=== PATIENT | male | born 1960 | race African-American/Black ===

== ENCOUNTER 2016-06-24 11:13 | Inpatient (IN) | payer BC, OTHER ==
[2016-06-24] MEDS ORDERED: VANCOMYCIN 1,000 MG in DEXTROSE 5%-WATER - 250 ML IVPB ONE (12:58)
[2016-06-24] MEDS ORDERED: PIPERACILLIN/TAZOB 3.375 GM/50 ML PRE-DOCKED IV ONE (13:04)
--- NOTE | 2016-06-24 13:09 | PDOC ---
History of Present Illness - History of Present Illness Initial Comments: 06/24/16 13:09 Patient is a 56 year old male with significant medical hx of HTN, chronic venous stasis ulcers (since childhood), gout, and CKD who has been sent down to the ED from wound care for suspected infection. The patient reports he has poor circulation in his legs and has had these ulcerations since childhood. Patient has his wounds treated here at wound care every Monday. He was sent to the ED for suspected infection due to foul odor and bleeding of the wound. Denies any fever or chills. Denies hx of diabetes. Wound Care Physician: Pepito Eric MD <Adelaida Valdes - Last Filed: 06/24/16 14:48> <Haroldo Fofana - Last Filed: 06/24/16 14:54> - General Chief Complaint: Wound Infection Stated Complaint: WOUND CARE ADMISSION Time Seen by Provider: 06/24/16 12:07 Past History <Adelaida Valdes - Last Filed: 06/24/16 14:48> - Past Medical History Anemia: No Asthma: No Cancer: No Cardiac Disorders: No CVA: No COPD: No CHF: Yes Dementia: No Diabetes: No GI Disorders: No Disorders: No HTN: Yes Hypercholesterolemia: No Liver Disease: No Suicide Attempt (Hx): No Seizures: No Thyroid Disease: No Other medical history: pvd ble - Surgical History Abdominal Surgery: No Appendectomy: Yes Cardiac Surgery: No Cholecystectomy: No Lung Surgery: No Neurologic Surgery: No Orthopedic Surgery: No - Psycho/Social/Smoking Cessation Hx Anxiety: No Suicidal Ideation: No Smoking Status: No Smoking History: Never smoked Have you smoked in the past 12 months: No Number of Cigarettes Smoked Daily: 0 Information on smoking cessation initiated: No Hx Alcohol Use: No Drug/Substance Use Hx: No Substance Use Type: None Hx Substance Use Treatment: No <Haroldo Fofana - Last Filed: 06/24/16 14:54> - Past Medical History Allergies/Adverse Reactions: Allergies Allergy/AdvReac Type Severity Reaction Status Date / Time [place] And Derivatives AdvReac Verified 06/24/16 11:26 lactose AdvReac Verified 06/24/16 11:26 NKDA Allergy Uncoded 06/24/16 11:26 eggs AdvReac Mild Nausea Uncoded 06/24/16 11:26 Home Medications: Ambulatory Orders Gabapentin [Neurontin -] 100 mg PO TID capsule 10/21/14 Allopurinol [Zyloprim -] 100 mg PO BID 11/21/14 Furosemide [Lasix] 0 mg PO DAILY 06/24/16 Review of Systems - Review of Systems Comments:: 06/24/16 13:10 GENERAL/CONSTITUTIONAL: No fever or chills. No weakness. HEAD, EYES, EARS, NOSE AND THROAT: No change in vision. No ear pain or discharge. No sore throat. CARDIOVASCULAR: No chest pain or shortness of breath. RESPIRATORY: No cough, wheezing, or hemoptysis. GASTROINTESTINAL: No nausea, vomiting, diarrhea or constipation. GENITOURINARY: No dysuria, frequency, or change in urination. MUSCULOSKELETAL: No joint or muscle swelling or pain. No neck or back pain. SKIN: Chronic lower extremity wounds with foul odor and active bleeding. No rash NEUROLOGIC: No headache, vertigo, loss of consciousness, or change in strength/ sensation. <Adelaida Valdes - Last Filed: 06/24/16 14:48> *Physical Exam - Vital Signs Last Vital Signs Temp Pulse Resp BP Pulse Ox 97.8 F 75 18 125/73 100 06/24/16 11:27 06/24/16 11:27 06/24/16 11:27 06/24/16 11:27 06/24/16 11:27 - Physical Exam Comments: 06/24/16 13:10 GENERAL: Morbidly obese. Awake, alert, and fully oriented, in no acute distress HEAD: No signs of trauma EYES: PERRLA, EOMI, sclera anicteric, conjunctiva clear ENT: Auricles normal inspection, hearing grossly normal, nares patent, oropharynx clear without exudates. Moist mucosa NECK: Normal ROM, supple, no lymphadenopathy, JVD, or masses LUNGS: Breath sounds equal, clear to auscultation bilaterally. No wheezes, and no crackles HEART: Regular rate and rhythm, normal S1 and S2, no murmurs, rubs or gallops ABDOMEN: Soft, nontender, normoactive bowel sounds. No guarding, no rebound. No masses EXTREMITIES: Marked venous stasis changes to both lower extremities. Left leg is warm, hot and bleeding with foul smell of pseudomonas. NEUROLOGICAL: Cranial nerves II through XII grossly intact. Normal speech, normal gait SKIN: Warm, Dry, normal turgor, no rashes or lesions noted. ENDOCRINE: No increased thirst. No abnormal weight change. HEMATOLOGIC/LYMPHATIC: No anemia, easy bleeding, or history of blood clots. ALLERGIC/IMMUNOLOGIC: No hives or skin allergy. <KeishaAdelaida - Last Filed: 06/24/16 14:48> - Vital Signs Last Vital Signs Temp Pulse Resp BP Pulse Ox 97.8 F 75 18 125/73 100 06/24/16 11:27 06/24/16 11:27 06/24/16 11:27 06/24/16 11:27 06/24/16 11:27 <Haroldo Fofana - Last Filed: 06/24/16 14:54> Heart Score/ECG Review #1 06/24/16 14:48 Normal sinus rhythm at 63 bpm Left axis deviation Nonspecific T wave abnormality Abnormal ECG <KeishaAdelaida - Last Filed: 06/24/16 14:48> ED Treatment Course - LABORATORY CBC & Chemistry Diagram: 06/24/16 13:37 06/24/16 13:37 <KeishaAdelaida - Last Filed: 06/24/16 14:48> - LABORATORY CBC & Chemistry Diagram: 06/24/16 13:37 06/24/16 13:37 <Haroldo Fofana - Last Filed: 06/24/16 14:54> *DC/Admit/Observation/Transfer - Attestations Scribe Attestion: 06/24/16 13:12 Documentation prepared by Adelaida Valdes, acting as medical office secretary for Haroldo Fofana MD. <Adelaida Valdes - Last Filed: 06/24/16 14:48> - Discharge Dispostion Admit: Yes - Attestations Physician Attestion: 06/24/16 13:09 I, Dr. Haroldo Fofana, attest that this document has been prepared under my direction and personally reviewed by me in its entirety. I further attest, that it accurately reflects all work, treatment, procedures and medical decision -making performed by me. <Haroldo Fofana - Last Filed: 06/24/16 14:54> Diagnosis at time of Disposition: Cellulitis and abscess of lower extremity, Severe anemia - Discharge Dispostion Condition at time of disposition: Improved - Referrals Referrals: Betsy Kim [Primary Care Provider] -
[2016-06-24] MEDS ORDERED: VANCOMYCIN 1 GRAM (PRE-DOCKED) 250 ML IVPB ONE (13:27)
[2016-06-24] MEDS ORDERED: PIPERACILLIN/TAZOB 3.375 GM 50 ML IVPB ONE (13:28)
[2016-06-24 13:51] LABS: BASOPHIL 1.3 % (0-2.0); EOSINOPHIL 3.7 % (0-4.5); MCH 23.6 pg (25.7-33.7); MEAN CELL VOLUME 78.6 fl (80-96); MEAN PLT VOLUME 8.8 fl (7.5-11.1); NEUTROPHILS 72.1 % (42.8-82.8); PLATELET COUNT 273 K/MM3 (134-434); RDW 16.8 % (11.9-15.9); WHITE BLOOD COUNT 7.2 K/mm3 (4.0-10.0)
[2016-06-24 14:04] LABS: INR 1.2 (0.82-1.09); PROTHROMBIN TIME (PATIENT) 13.3 SEC (9.98-11.88)
[2016-06-24 14:31] LABS: ALBUMIN 2.5 g/dl (3.4-5.0); BILIRUBIN,TOTAL 0.4 mg/dL (0.2-1.0); CALCIUM 7.7 mg/dL (8.5-10.1); TOT PROT 7.6 g/dl (6.4-8.2)
[2016-06-24] MEDS ORDERED: SODIUM POLYSTYRENE SULFONATE 15 GM/60 ML BOTTLE PO ONE (16:01)
[2016-06-24] MEDS ORDERED: SODIUM POLYSTYRENE SULFONATE 15 GM/60 ML BOTTLE ONE (16:34)
--- NOTE | 2016-06-24 17:40 | HP ---
CHIEF COMPLAINT: foul smelling wound infection PCP:Dr. Foote HISTORY OF PRESENT ILLNESS: This is a 56 year old male with a past medical history of anemia, aortic root dilatation, CKD, CHF, HTN, gout, chronic venous stasis ulcers (wound care every Monday, sees Dr. Denise Eric), who was sent over from wound care for a foul smelling , hemorrhagic, LLE ulcer. Patient refused to go to ER last week. Patient states that he has had this chronic leg condition since childhood. Patient denies fever, chills, sob, cp, pain in foot, trouble walking. He states he has full sensation and strength of bilateral feet. ER course was notable for: (1)CBC; no leukocytosis; anemia; Heme 6.1; vitals wnl (2)Chemistry: BUN/Cr; (3)1x van zosyn Recent Travel: no PAST MEDICAL HISTORY: anemia, aortic root dilatation, CKD, CHF, HTN, gout, chronic venous stasis ulcers PAST SURGICAL HISTORY: as per patient none; as per old records appendectomy Social History: Smoking:no Alcohol:no Drugs: no Family History: Allergies [place] And Derivatives Adverse Reaction (Verified 06/24/16 11:26) lactose Adverse Reaction (Verified 06/24/16 11:26) NKDA Allergy (Uncoded 06/24/16 11:26) eggs Adverse Reaction (Mild, Uncoded 06/24/16 11:26) Nausea HOME MEDICATIONS: Home Medications Medication Instructions Recorded Gabapentin [Neurontin -] 100 mg PO TID capsule 10/21/14 Allopurinol [Zyloprim -] 100 mg PO BID 11/21/14 Furosemide [Lasix] 0 mg PO DAILY 06/24/16 REVIEW OF SYSTEMS CONSTITUTIONAL: Absent: fever, chills, diaphoresis, generalized weakness, malaise, loss of appetite, weight change HEENT: Absent: rhinorrhea, nasal congestion, throat pain, throat swelling, difficulty swallowing, mouth swelling, ear pain, eye pain, visual changes CARDIOVASCULAR: Absent: chest pain, syncope, palpitations, irregular heart rate, lightheadedness , peripheral edema RESPIRATORY: Absent: cough, shortness of breath, dyspnea with exertion, orthopnea, wheezing, stridor, hemoptysis GASTROINTESTINAL: Absent: abdominal pain, abdominal distension, nausea, vomiting, diarrhea, constipation, melena, hematochezia GENITOURINARY: Absent: dysuria, frequency, urgency, hesitancy, hematuria, flank pain, genital pain MUSCULOSKELETAL: Absent: myalgia, arthralgia, joint swelling, back pain, neck pain SKIN: Positive; leg ulcers; skin breakdown Absent: rash, itching, pallor HEMATOLOGIC/IMMUNOLOGIC: Absent: easy bleeding, easy bruising, lymphadenopathy, frequent infections ENDOCRINE: Absent: unexplained weight gain, unexplained weight loss, heat intolerance, cold intolerance NEUROLOGIC: Absent: headache, focal weakness or paresthesias, dizziness, unsteady gait, seizure, mental status changes, bladder or bowel incontinence PSYCHIATRIC: Absent: anxiety, depression, suicidal or homicidal ideation, hallucinations. PHYSICAL EXAMINATION Vital Signs - 24 hr 06/24/16 15:27 Temperature 97.8 F Pulse Rate [ 70 Apical] Respiratory 19 Rate Blood Pressure 130/79 [Left Arm] O2 Sat by Pulse 100 Oximetry (%) GENERAL: Awake, alert, and fully oriented, in no acute distress. HEAD: Normal with no signs of trauma. LUNGS: Breath sounds equal, clear to auscultation bilaterally. No wheezes, and no crackles. No accessory muscle use. HEART: Regular rate and rhythm, normal S1 and S2 without murmur, rub or gallop. ABDOMEN: Soft, nontender, not distended, normoactive bowel sounds, no guarding, no rebound, no masses. No hepatomegaly or splenomegaly. MUSCULOSKELETAL: Normal range of motion at all joints. No bony deformities or tenderness. No CVA tenderness. UPPER EXTREMITIES: 2+ pulses, warm, well-perfused. No cyanosis. No clubbing. Cap refill <2 seconds. No peripheral edema. LOWER EXTREMITIES: 2+ pulses, No calf tenderness. Chronic b/l venous stasis; wound dressing over larger ulcer over LLE wet with yellow discharge; bleeding; very foul smelling NEUROLOGICAL: Cranial nerves II-XII intact. Normal speech. Normal gait. PSYCHIATRIC: Cooperative. Good eye contact. Appropriate mood and affect. SKIN: Warm, dry, normal turgor, no rashes or lesions noted. Laboratory Results - last 24 hr 06/24/16 15:55 Crossmatch See Detail ASSESSMENT/PLAN: 56 year old male with a PMHx of CHF, HTN, aortic root dilatation, CKD, chronic venous stasis ulcers of bilateral lower extremities, presents with a one week history of foul smelling wound. Wound clinic every Monday,was asked to go to ER last week by Dr. Eric, patient refused. 1. Wound infection secondary to chronic venous stasis ulcer; -IV antibiotics to cover MRSA and pseudomonus; IV vancomycon and IV zosyn -wound and blood cultures -no imageing of wound at this time; relatively superficial wound -ID consult/ Dr. Eric consulted 2. Chronic Anemia most likely secondary to chronic kidney disease: -Transfuse 2U PRBC ; repeat cbc 1 hour after -iron studies 3. Chronic Kidney Disease: -BUN/Cr 37/2.0; baseline 1.8-2.3 -trend; 4. HTN: controlled -lasix 40mg po daily 5. HX of CHF: controlled -continue lasix 6. Gout: -cont allopurinol 100mg po bid 7. Hyperkalemia: slightly elevated 5.5 trend; FEN: Fluids: po Electrolytes: hyperkalemia; 5.5; f/u bmp VTE prophylaxis: heparin sq Disposition: IV antibiotics ; Problem List - Problem (1) Cellulitis and abscess of leg Code(s): L02.419 - CUTANEOUS ABSCESS OF LIMB, UNSPECIFIED L03.119 - CELLULITIS OF UNSPECIFIED PART OF LIMB (2) Severe anemia Code(s): D64.9 - ANEMIA, UNSPECIFIED Visit type - Emergency Visit Emergency Visit: Yes ED Registration Date: 06/24/16 Care time: The patient presented to the Emergency Department on the above date and was hospitalized for further evaluation of their emergent condition. - New Patient This patient is new to me today: Yes Date on this admission: 06/24/16 - Critical Care Critical Care patient: No
--- NOTE | 2016-06-24 17:42 | PN ---
Teaching Attending Note Name of Resident: Alieen Perez ATTENDING PHYSICIAN STATEMENT I saw and evaluated the patient. I reviewed the resident's note and discussed the case with the resident. I agree with the resident's findings and plan as documented. SUBJECTIVE: This is a 56-year-old man with a history of chronic venous stasis and ulcers of both legs who comes to the ER today from the wound center because of foul-smelling bloody drainage from his left leg. He has been following at the wound center and was advised to be admitted for IV antibiotics last week. He refused and so Bactroban and LEAH wraps were applied. OBJECTIVE: Vital Signs Period Temp Pulse Resp BP Sys/[place] Pulse Ox Last 24 Hr 97.8 F-97.8 F 70-75 18-19 125-130/73-79 100-100 HEART: S1 S2, RRR LUNGS: Clear ABDOMEN: Obese, soft, non-tender, non-distended, normal BS EXTREMITIES: Chronic venous stasis changes. Superficial ulcers right lower leg. Large ulceration of left lower leg with serous and bloody drainage. ASSESSMENT AND PLAN: This is a 56-year-old man with a history of chronic venous stasis of both legs, chronic ulcers of both legs, anemia, CKD, CHF, HTN, gout who was sent to the ER from the wound clinic for foul-smelling, bloody drainage from the LLE ulcer. 1. Infected venous ulcer of left leg - Zosyn, Vancomycin started in ER - ID, vascular surgery consults 2. Anemia secondary to CKD and chronic illness - Last available hemoglobin is 10.9 from 10/20/14 (6.7 today) - Check iron studies, stool occult blood - Transfuse to Hgb>8 3. Hypertension - Continue Lasix 4. Stage 3 CKD - Last available creatinine is 1.8 from 10/20/14 (2.0 today) 5. Chronic diastolic heart failure - Stable - Continue Lasix 6. History of gout - Continue Allopurinol
[2016-06-24] MEDS ORDERED: HEPARIN NA (PORCINE) 5,000 UNITS/ML 1ML VIAL SQ SCH (18:00)
[2016-06-24] MEDS ORDERED: ALLOPURINOL 100 MG TABLET (FP) ONE (22:08)
[2016-06-24] MEDS: GABAPENTIN 100 MG CAPSULE (FP) PO SCH (22:13)
[2016-06-24] MEDS: ALLOPURINOL 100 MG TABLET (FP) PO SCH (22:14)
[2016-06-25] MEDS: PIPERACILLIN/TAZOB 3.375 GM 50 ML IVPB SCH ×3 (02:24→17:12)
[2016-06-25 05:55] VITALS: BMI 35.4
[2016-06-25] MEDS: GABAPENTIN 100 MG CAPSULE (FP) PO SCH ×3 (07:12→22:51)
[2016-06-25 09:39] LABS: BASOPHIL 0.8 % (0-2.0); EOSINOPHIL 4.2 % (0-4.5); MCH 24.7 pg (25.7-33.7); MCHC 31.1 g/dl (32.0-35.9); MEAN CELL VOLUME 79.5 fl (80-96); MEAN PLT VOLUME 8.7 fl (7.5-11.1); NEUTROPHILS 77.1 % (42.8-82.8); PLATELET COUNT 268 K/MM3 (134-434); RDW 16.3 % (11.9-15.9)
[2016-06-25 09:59] LABS: ALBUMIN 2.4 g/dl (3.4-5.0); BILIRUBIN,TOTAL 0.8 mg/dL (0.2-1.0); CALCIUM 7.8 mg/dL (8.5-10.1); CREATININE 1.9 mg/dL (0.7-1.3); TOT PROT 7.5 g/dl (6.4-8.2)
[2016-06-25] MEDS ORDERED: PT OWN MED DRAWER 7, Y5N ONE (10:32)
[2016-06-25] MEDS: FUROSEMIDE 40 MG TABLET (FP) PO SCH (10:37)
[2016-06-25] MEDS: ALLOPURINOL 100 MG TABLET (FP) PO SCH ×2 (10:37→22:51)
--- NOTE | 2016-06-25 11:43 | CONSULT ---
Consult Consult Specialty:: infectious diseases Reason for Consultation:: bilateral cellulitis.pvd - History of Present Illness History of Present Illness: 56 year old male with a past medical history of anemia, aortic root dilatation, CKD, CHF, HTN, gout, chronic venous stasis ulcerssees Dr. Denise Eric), who was sent over from wound care for a foul smelling, hemorrhagic, LLE ulcer. . Patient states that he has had this chronic leg condition since childhood. he does not complain of anything else says this is going on since a long time but the foul smell has increased after coming to the er patient wound cx taken and patient admitted to the hospital - History Source History Provided By: Patient Limitations to Obtaining History: No Limitations - Past Medical History Cardio/Vascular: Yes: CHF, HTN, Pulmonary Hypertension, Other Renal/: Yes: Renal Inusuff Musculoskeletal: Yes: Other Additional Medical History: chronic lymphedema sees Dr Eric at the wound clinic Admitted for increasing LE EDEMA - Alcohol/Substance Use Hx Alcohol Use: No History of Substance Use: reports: None - Smoking History Smoking history: Never smoked Have you smoked in the past 12 months: No Aproximately how many cigarettes per day: 0 - Social History Usual Living Arrangement: With Parent History of Recent Travel: No Home Medications - Allergies Allergies/Adverse Reactions: Allergies Allergy/AdvReac Type Severity Reaction Status Date / Time [place] And Derivatives AdvReac Verified 06/24/16 11:26 lactose AdvReac Verified 06/24/16 11:26 NKDA Allergy Uncoded 06/24/16 11:26 eggs AdvReac Mild Nausea Uncoded 06/24/16 11:26 - Home Medications Home Medications: Ambulatory Orders Gabapentin [Neurontin -] 100 mg PO TID capsule 10/21/14 Allopurinol [Zyloprim -] 100 mg PO BID 11/21/14 Furosemide [Lasix] 0 mg PO DAILY 06/24/16 Review of Systems - Review of Systems Constitutional: reports: No Symptoms Eyes: reports: No Symptoms HENT: reports: No Symptoms Neck: reports: No Symptoms Cardiovascular: reports: No Symptoms Respiratory: reports: No Symptoms Gastrointestinal: reports: No Symptoms Musculoskeletal: reports: Other Integumentary: reports: Erythema, Wound Neurological: reports: No Symptoms Endocrine: reports: No Symptoms Hematology/Lymphatic: reports: No Symptoms Psychiatric: reports: No Symptoms Physical Exam Vital Signs: Vital Signs Temperature 98 F 03/11/17 06:00 Pulse Rate 79 06/25/16 06:00 Respiratory Rate 20 06/25/16 06:00 Blood Pressure 119/54 06/25/16 06:00 O2 Sat by Pulse Oximetry (%) 100 06/25/16 00:33 Constitutional: Yes: No Distress, Calm Cardiovascular: Yes: Regular Rate and Rhythm Respiratory: Yes: Regular, CTA Bilaterally Gastrointestinal: Yes: Normal Bowel Sounds, Soft Musculoskeletal: Yes: Other Extremities: Yes: Erythema, Other (ulcer over the left ext chronic venous stasis changes on both legs) Integumentary: Yes: Erythema, Skin Tear, Other Wound/Incision: Yes: Dressing Removed, Draining Neurological: Yes: Alert, Oriented Psychiatric: Yes: Alert, Oriented Labs: CBC, BMP 06/25/16 09:00 06/25/16 09:00 Imaging - Results Chest X-ray: Report Reviewed, Image Reviewed Assessment/Plan 1. Wound infection 2. Chronic Anemia 3. Chronic Kidney Disease: 4. HTN: 5. CHF 6. Gout: wound cx result noted await for identification of the organisms patient received vanco and zosyn in the er plan continue zosyn will add clinda await for final identification of organism continue wound care
--- NOTE | 2016-06-25 12:17 | PN ---
Progress Note (short form) - Note Progress Note: Pt seen in wound clinic yesterday and sent in for admission. He denies any fevers but was having serous drainage from the left leg. The pt has a history of chronic lower ext ulcers and is seen on a regular basis by Dr. Eric in the wound clinic. He uses pumps to his lower ext at home to help with swelling. Vital Signs Period Temp Pulse Resp BP Sys/[place] Pulse Ox Last 24 Hr 97.8 F-98 F 69-79 17-20 115-134/54-79 97-100 PE: RLE: small superficial wounds with pink granulation base. No drainage noted. alginate dressing in place. wound size 5x3cm, 1x1cm and 2x4cm LLE: serous drainage noted. macerated tissue with pink granulation tissue. large ulcerated area noted with skin bridges over anterio/posterior lower ext. Feet are warm to touch b/l. No erythema is noted. CBC, BMP 06/25/16 09:00 06/25/16 09:00 Microbiology 06/24/16 12:50 Ankle - Left Lateral Gram Stain - Final 06/24/16 12:50 Ankle - Left Lateral Wound Culture - Preliminary Non Lactose Fermenting Gnb Non Lactose Fermenting Gnb#2 Pending Organism Pending Organism#2 Problem List - Problems (1) Venous stasis ulcers of both lower extremities Assessment/Plan: Pt seen and examined, D/w Dr. Nunez. Pt with a history of chornic LE ulcers. Recommend local wound care with alginate/kerlix/brook wrap. Wound care orders placed. IV abx as per ID Code(s): I83.019 - VARICOSE VEINS OF RIGHT LOWER EXTREMITY W ULCER OF UNSP SITE I83.029 - VARICOSE VEINS OF LEFT LOWER EXTREMITY W ULCER OF UNSP SITE
[2016-06-25] MEDS: CLINDAMYCIN HCL 150 MG CAPSULE (FP) PO SCH ×2 (14:23→22:51)
--- NOTE | 2016-06-25 14:49 | EKG ---
Test Reason : Blood Pressure : / mmHG Vent. Rate : 063 BPM Atrial Rate : 063 BPM P-R Int : 204 ms QRS Dur : 100 ms QT Int : 436 ms P-R-T Axes : 055 -30 062 degrees QTc Int : 446 ms NORMAL SINUS RHYTHM WITH 1ST DEGREE A-V BLOCK LEFT AXIS DEVIATION NONSPECIFIC T WAVE ABNORMALITY ABNORMAL ECG Confirmed by MARITZA ORANTES MD ([id number]) on 06/25/2016 2:48:36 PM Referred By: Confirmed By:MARITZA ORANTES MD
--- NOTE | 2016-06-25 17:43 | PN ---
Progress Note (short form) - Note Progress Note: currently asymptomatic. requesting to go home. denies CP, SOB,fever, chills, N/V /C/D, BRBPR, melena. normal BM yesterday Current Medications Generic Name Dose Route Start Last Admin Trade Name Freq PRN Reason Stop Dose Admin Acetaminophen 650 mg 06/24/16 15:52 Tylenol - PO Q4H PRN FEVER OR PAIN Allopurinol 100 mg 06/24/16 22:00 06/25/16 10:37 Zyloprim - PO 100 mg BID MICHELLE Administration Clindamycin HCl 300 mg 06/25/16 14:00 06/25/16 14:23 Cleocin - PO 300 mg TID MICHELLE Administration Furosemide 40 mg 06/25/16 10:00 06/25/16 10:37 Lasix - PO 40 mg DAILY MICHELLE Administration Gabapentin 100 mg 06/24/16 22:00 06/25/16 14:23 Neurontin - PO 100 mg TID MICHELLE Administration Piperacillin Sod/Tazobactam Sod 50 mls @ 100 mls/hr 06/25/16 02:00 06/25/16 17: 12 Zosyn 3.375gm Ivpb (Pre-Docked) IVPB 100 mls/hr Q8H-IV MICHELLE Administration Protocol Last Vital Signs Temp Pulse Resp BP Pulse Ox 97.8 F 76 20 119/54 100 06/25/16 15:55 06/25/16 15:55 06/25/16 15:55 06/25/16 06:00 06/25/16 00:33 General NAD CV S1 S2 RRR no murmur/rub/gallop Lungs CTA B/L no wheezing/rales/rhonchi Abdomen soft NT/ND obese extremities chronic venous changes, trace pitting edema, dressing from knee to feet B/L c/d/i CBCD WBC 7.0 K/mm3 (4.0-10.0) 06/25/16 09:00 RBC 3.28 M/mm3 (4.00-5.60) L 06/25/16 09:00 Hgb 8.1 GM/dL (11.7-16.9) L D 06/25/16 09:00 Hct 26.1 % (35.4-49) L D 06/25/16 09:00 MCV 79.5 fl (80-96) L 06/25/16 09:00 MCHC 31.1 g/dl (32.0-35.9) L 06/25/16 09:00 RDW 16.3 % (11.9-15.9) H 06/25/16 09:00 Plt Count 268 K/MM3 (134-434) 06/25/16 09:00 MPV 8.7 fl (7.5-11.1) 06/25/16 09:00 CMP Sodium 144 mmol/L (136-145) 06/25/16 09:00 Potassium 5.0 mmol/L (3.5-5.1) 06/25/16 09:00 Chloride 111 mmol/L (98-107) H 06/25/16 09:00 Carbon Dioxide 27 mmol/L (21-32) 06/25/16 09:00 Anion Gap 6 (8-16) L 06/25/16 09:00 BUN 33 mg/dL (7-18) H 06/25/16 09:00 Creatinine 1.9 mg/dL (0.7-1.3) H 06/25/16 09:00 Creat Clearance w eGFR 36.59 (>60) 06/25/16 09:00 Calcium 7.8 mg/dL (8.5-10.1) L 06/25/16 09:00 Total Bilirubin 0.8 mg/dL (0.2-1.0) D 06/25/16 09:00 AST 10 U/L (15-37) L 06/25/16 09:00 ALT 12 U/L (12-78) 06/25/16 09:00 Alkaline Phosphatase 111 U/L (45-117) 06/25/16 09:00 Total Protein 7.5 g/dl (6.4-8.2) 06/25/16 09:00 Albumin 2.4 g/dl (3.4-5.0) L 06/25/16 09:00 Microbiology 06/24/16 12:57 Blood Culture - Preliminary Blood - Peripheral Venous NO GROWTH OBTAINED AFTER 24 HOURS, INCUBATION TO CONTINUE FOR 4 DAYS. 06/24/16 12:57 Blood Culture - Preliminary Blood - Peripheral Venous NO GROWTH OBTAINED AFTER 24 HOURS, INCUBATION TO CONTINUE FOR 4 DAYS. 06/24/16 12:50 Gram Stain - Final Ankle - Left Lateral Wound Culture - Preliminary Non Lactose Fermenting Gnb Non Lactose Fermenting Gnb#2 Pending Organism Pending Organism#2 A/P 56yo M with PMH anemia, CKD, HTN, CHF, chronic venous ulcer presented to the ER and was admitted for further evaluation of their emergent condition 1. B/L venous stasis ulcer- appreciate both vasc surgery and ID recommendations. legs wrapped by vasc surgery this morning and did not fully visualize legs by me. will likely require further workup with angiogram if not done previously (as per pt he never had) Cx pending organism. cont Zosyn/clinda day 2 2. Acute normocytic anemia- s/p 2 unit PRBC. no signs of active bleeding. had colonoscopy 3 years ago and negative per pt. no indication for txn at this time. iron studies pending but these were done after blood transfusion. 3. Hyperkalemia- resolved 4. CKD- at baseline 5. DVT ppx- EAM Visit type - Emergency Visit Emergency Visit: Yes ED Registration Date: 06/24/16 Care time: The patient presented to the Emergency Department on the above date and was hospitalized for further evaluation of their emergent condition. - New Patient This patient is new to me today: Yes Date on this admission: 06/25/16 - Critical Care Critical Care patient: No - Discharge Referral Referred to [facility] No
[2016-06-26] MEDS: PIPERACILLIN/TAZOB 3.375 GM 50 ML IVPB SCH ×3 (01:55→18:23)
[2016-06-26] MEDS: GABAPENTIN 100 MG CAPSULE (FP) PO SCH ×3 (06:31→21:49)
[2016-06-26] MEDS: CLINDAMYCIN HCL 150 MG CAPSULE (FP) PO SCH ×3 (06:31→21:49)
[2016-06-26 06:37] LABS: SERUM IRON 31 ug/dL (38-169); TOTAL IRON BINDING CAPACITY 267 ug/dL (250-450); UIBC 236 ug/dL (111-343)
[2016-06-26 07:53] LABS: MCH 24.9 pg (25.7-33.7); MCHC 31.7 g/dl (32.0-35.9); MEAN CELL VOLUME 78.7 fl (80-96); PLATELET COUNT 227 K/MM3 (134-434); RDW 17.1 % (11.9-15.9); WHITE BLOOD COUNT 7.1 K/mm3 (4.0-10.0)
[2016-06-26] MEDS: FUROSEMIDE 40 MG TABLET (FP) PO SCH (10:44)
[2016-06-26] MEDS: ALLOPURINOL 100 MG TABLET (FP) PO SCH ×2 (10:44→21:49)
[2016-06-26 13:31] LABS: BASOPHIL 1.2 % (0-2.0); EOSINOPHIL 5.2 % (0-4.5); MCH 24.6 pg (25.7-33.7); MEAN CELL VOLUME 79.5 fl (80-96); MEAN PLT VOLUME 8.5 fl (7.5-11.1); PLATELET COUNT 231 K/MM3 (134-434); RDW 16.8 % (11.9-15.9); WHITE BLOOD COUNT 6.7 K/mm3 (4.0-10.0)
--- NOTE | 2016-06-26 14:10 | PN ---
Teaching Attending Note Name of Resident: Aileen Perez ATTENDING PHYSICIAN STATEMENT I saw and evaluated the patient. I reviewed the resident's note and discussed the case with the resident. I agree with the resident's findings and plan as documented. SUBJECTIVE:currently asymptomatic. denies CP, SOB,fever, chills, BRBPR, or melena OBJECTIVE: Last Vital Signs Temp Pulse Resp BP Pulse Ox 97.7 F 82 18 124/70 95 06/26/16 09:09 06/26/16 09:09 06/26/16 09:09 06/26/16 09:09 06/26/16 09:00 General NAD Extremities multiple ulcer B/L LE with pink granulation tissue. areas are nontender. chronic venous changes Microbiology 06/24/16 12:50 Gram Stain - Final Ankle - Left Lateral Wound Culture - Preliminary Proteus Mirabilis Pseudomonas Aeruginosa Pending Organism Pending Organism#2 06/24/16 12:57 Blood Culture - Preliminary Blood - Peripheral Venous NO GROWTH OBTAINED AFTER 24 HOURS, INCUBATION TO CONTINUE FOR 4 DAYS. 06/24/16 12:57 Blood Culture - Preliminary Blood - Peripheral Venous NO GROWTH OBTAINED AFTER 24 HOURS, INCUBATION TO CONTINUE FOR 4 DAYS. ASSESSMENT AND PLAN: 56yo M with PMH anemia, CKD, HTN, CHF, chronic venous ulcer presented to the ER and was admitted for further evaluation of their emergent condition 1. B/L venous stasis ulcer- appreciate both vasc surgery and ID recommendations. will likely require further workup with angiogram if not done previously (as per pt he never had) Cx pending organism. cont Zosyn/clinda day 3. await final results of wound Cx 2. Acute normocytic anemia- s/p 2 unit PRBC. drop in H/H. will tranfuse 1 unit PRBC to maintain Hgb >8 due to cardiac and CKD hx. iron deficient. start iron supplementation. no signs of active bleeding. will do NERY later as pt is currently eating 3. Hyperkalemia- resolved 4. CKD- at baseline 5. DVT ppx- EAM
--- NOTE | 2016-06-26 14:35 | PN ---
Physical Exam: SUBJECTIVE: Patient seen and examine. Denies pain of b/l legs, fever, chills, changes in bowel or bladder. Denies melena. OBJECTIVE: Vital Signs Period Temp Pulse Resp BP Sys/Mcfarland Pulse Ox Last 24 Hr 97.7 F-98.0 F 68-82 18-20 111-134/60-70 95-97 GENERAL: The patient is obese, awake, alert, and fully oriented, in no acute distress. HEAD: Normal with no signs of trauma. LUNGS: Breath sounds equal, clear to auscultation bilaterally, no wheezes, no crackles, no accessory muscle use. HEART: Regular rate and rhythm, S1, S2 without murmur, rub or gallop. ABDOMEN: Soft, nontender, nondistended, normoactive bowel sounds, no guarding, no rebound, no hepatosplenomegaly, no masses. EXTREMITIES: 2+ pulses, warm, well-perfused, no edema. RLE: small superficial wounds with pink granulation base. around 5 cm with wound area; LLE: serous drainage pink granulation tissue, macerated. large ulcerated area, NEUROLOGICAL: Cranial nerves II through XII grossly intact. Normal speech, gait not observed. PSYCH: Normal mood, normal affect. SKIN: Warm, dry, normal turgor, no rashes or lesions noted Laboratory Results - last 24 hr 06/24/16 06/25/16 06/26/16 15:55 09:00 06:30 WBC 7.1 RBC 3.07 L Hgb 7.6 L Hct 24.1 L MCV 78.7 L MCHC 31.7 L RDW 17.1 H Plt Count 227 MPV 9.0 Neutrophils % Lymphocytes % Monocytes % Eosinophils % Basophils % Iron 31 L TIBC 267 Iron Saturation 12 L Crossmatch See Detail 06/26/16 13:15 WBC 6.7 RBC 3.09 L Hgb 7.6 L Hct 24.5 L MCV 79.5 L MCHC 31.0 L RDW 16.8 H Plt Count 231 MPV 8.5 Neutrophils % 72.0 Lymphocytes % 12.7 Monocytes % 8.9 Eosinophils % 5.2 H Basophils % 1.2 Iron TIBC Iron Saturation Crossmatch Active Medications Generic Name Dose Route Start Last Admin Trade Name Freq PRN Reason Stop Dose Admin Acetaminophen 650 mg 06/24/16 15:52 Tylenol - PO Q4H PRN FEVER OR PAIN Allopurinol 100 mg 06/24/16 22:00 06/26/16 10:44 Zyloprim - PO 100 mg BID MICHELLE Administration Clindamycin HCl 300 mg 06/25/16 14:00 06/26/16 14:15 Cleocin - PO 300 mg TID MICHELLE Administration Ferrous Sulfate 325 mg 06/26/16 17:30 Feosol - PO BIDWM MICHELLE Furosemide 40 mg 06/25/16 10:00 06/26/16 10:44 Lasix - PO 40 mg DAILY MICHELLE Administration Gabapentin 100 mg 06/24/16 22:00 06/26/16 14:15 Neurontin - PO 100 mg TID MICHELLE Administration Piperacillin Sod/Tazobactam Sod 50 mls @ 100 mls/hr 06/25/16 02:00 06/26/16 10: 44 Zosyn 3.375gm Ivpb (Pre-Docked) IVPB 100 mls/hr Q8H-IV MICHELLE Administration Protocol Microbiology 06/24/16 12:50 Ankle - Left Lateral Gram Stain - Final 06/24/16 12:50 Ankle - Left Lateral Wound Culture - Preliminary Proteus Mirabilis Pseudomonas Aeruginosa Beta Hemolytic Strep Presumptive Mrsa (Pbp2a Pos) 06/24/16 12:57 Blood - Peripheral Venous Blood Culture - Preliminary NO GROWTH OBTAINED AFTER 24 HOURS, INCUBATION TO CONTINUE FOR 4 DAYS. 06/24/16 12:57 Blood - Peripheral Venous Blood Culture - Preliminary NO GROWTH OBTAINED AFTER 24 HOURS, INCUBATION TO CONTINUE FOR 4 DAYS. ASSESSMENT/PLAN: 56 year old male with a PMHx of CHF, HTN, aortic root dilatation, CKD, chronic venous stasis ulcers of bilateral lower extremities, presents with a one week history of foul smelling wound. Wound clinic every Monday,was asked to go to ER last week by Dr. Eric, patient refused. 1. Wound infection secondary to chronic venous stasis ulcer; -IV antibiotics to cover MRSA and pseudomonus; IV zosyn and clindamycin -wound and blood cultures; as above -angiogram needed if has not had; -ID consult/ Dr. Eric consulted 2. Chronic Anemia most likely secondary to chronic kidney disease: Hemoglobin 7.6 today -Transfuse 2U PRBC on admission -iron studies -transufe another unit today; need to maintain heme >8 due to history of cardiac and chronic kidney disease 3. Chronic Kidney Disease: -BUN/Cr; baseline 1.8-2.3 -trend; 4. HTN: controlled -lasix 40mg po daily 5. HX of CHF: controlled -continue lasix 6. Gout: -cont allopurinol 100mg po bid 7. Hyperkalemia: resolved FEN: Fluids: po Electrolytes: hyperkalemia; 5.5; f/u bmp VTE prophylaxis: heparin sq Disposition: IV antibiotics ; Problem List - Problems (1) Cellulitis and abscess of leg Code(s): L02.419 - CUTANEOUS ABSCESS OF LIMB, UNSPECIFIED L03.119 - CELLULITIS OF UNSPECIFIED PART OF LIMB (2) Severe anemia Code(s): D64.9 - ANEMIA, UNSPECIFIED (3) Congestive heart failure Code(s): I50.9 - HEART FAILURE, UNSPECIFIED (4) Dilated aortic root Code(s): I77.810 - THORACIC AORTIC ECTASIA (5) Iron deficiency anemia Code(s): D50.9 - IRON DEFICIENCY ANEMIA, UNSPECIFIED (6) Lymphedema Code(s): I89.0 - LYMPHEDEMA, NOT ELSEWHERE CLASSIFIED (7) Morbid obesity Code(s): E66.01 - MORBID (SEVERE) OBESITY DUE TO EXCESS CALORIES (8) Venous stasis ulcers of both lower extremities Code(s): I83.019 - VARICOSE VEINS OF RIGHT LOWER EXTREMITY W ULCER OF UNSP SITE I83.029 - VARICOSE VEINS OF LEFT LOWER EXTREMITY W ULCER OF UNSP SITE Visit type - Emergency Visit Emergency Visit: Yes ED Registration Date: 06/24/16 Care time: The patient presented to the Emergency Department on the above date and was hospitalized for further evaluation of their emergent condition. - New Patient This patient is new to me today: No - Critical Care Critical Care patient: No
--- NOTE | 2016-06-26 14:41 | PN ---
Progress Note, Physician History of Present Illness: feeling well no complaints says drainage decreasing - Current Medication List Current Medications: Active Medications Acetaminophen (Tylenol -) 650 mg PO Q4H PRN PRN Reason: FEVER OR PAIN Allopurinol (Zyloprim -) 100 mg PO BID [facility] Last Admin: 06/26/16 10:44 Dose: 100 mg Clindamycin HCl (Cleocin -) 300 mg PO TID [facility] Last Admin: 06/26/16 14:15 Dose: 300 mg Ferrous Sulfate (Feosol -) 325 mg PO BIDWM [facility] Furosemide (Lasix -) 40 mg PO DAILY [facility] Last Admin: 06/26/16 10:44 Dose: 40 mg Gabapentin (Neurontin -) 100 mg PO TID [facility] Last Admin: 06/26/16 14:15 Dose: 100 mg Piperacillin Sod/Tazobactam Sod (Zosyn 3.375gm Ivpb (Pre-Docked)) 50 mls @ 100 mls/hr IVPB Q8H-IV MICHELLE PRN Reason: Protocol Last Admin: 06/26/16 10:44 Dose: 100 mls/hr - Objective Vital Signs: Vital Signs Temperature 97.8 F 06/26/16 14:32 Pulse Rate 84 06/26/16 14:32 Respiratory Rate 20 06/26/16 14:32 Blood Pressure 124/70 06/26/16 09:09 O2 Sat by Pulse Oximetry (%) 95 06/26/16 09:00 Constitutional: Yes: No Distress, Calm Cardiovascular: Yes: Regular Rate and Rhythm Respiratory: Yes: Regular, CTA Bilaterally Gastrointestinal: Yes: Normal Bowel Sounds, Soft Musculoskeletal: Yes: Other Extremities: Yes: Other Integumentary: Yes: Erythema, Other (draianing improving) Wound/Incision: Yes: Dressing Dry and Intact Neurological: Yes: Alert, Oriented Psychiatric: Yes: Alert, Oriented Labs: CBC, BMP 06/26/16 13:15 06/25/16 09:00 INR, PTT INR 1.20 (0.82-1.09) H 06/24/16 13:37 Assessment/Plan 1. Wound infection 2. Chronic Anemia 3. Chronic Kidney Disease: 4. HTN: 5. CHF 6. Gout: organism noted await sensitivities plan continue zosyn continue clinda wound care
[2016-06-26] MEDS: FERROUS SO4 325 MG TABLET (FP) PO SCH (17:27)
[2016-06-27] MEDS: PIPERACILLIN/TAZOB 3.375 GM 50 ML IVPB SCH ×3 (02:25→18:29)
[2016-06-27] MEDS: CLINDAMYCIN HCL 150 MG CAPSULE (FP) PO SCH ×3 (06:02→22:15)
[2016-06-27] MEDS: GABAPENTIN 100 MG CAPSULE (FP) PO SCH ×3 (06:02→22:16)
[2016-06-27] MEDS: FERROUS SO4 325 MG TABLET (FP) PO SCH ×2 (08:23→18:29)
[2016-06-27 08:58] LABS: BASOPHIL 0.5 % (0-2.0); EOSINOPHIL 4.9 % (0-4.5); MCHC 31.5 g/dl (32.0-35.9); MEAN CELL VOLUME 79.2 fl (80-96); MEAN PLT VOLUME 9.3 fl (7.5-11.1); NEUTROPHILS 73.4 % (42.8-82.8); PLATELET COUNT 212 K/MM3 (134-434); RDW 17.4 % (11.9-15.9); WHITE BLOOD COUNT 6.7 K/mm3 (4.0-10.0)
[2016-06-27 09:31] LABS: CALCIUM 7.6 mg/dL (8.5-10.1); CREATININE 2.1 mg/dL (0.7-1.3)
[2016-06-27] MEDS: ALLOPURINOL 100 MG TABLET (FP) PO SCH ×2 (10:30→22:16)
[2016-06-27] MEDS: FUROSEMIDE 40 MG TABLET (FP) PO SCH (10:30)
--- NOTE | 2016-06-27 13:08 | PN ---
Progress Note, Physician History of Present Illness: feeling well no complaints no smell from the wounds according to the patient - Current Medication List Current Medications: Active Medications Acetaminophen (Tylenol -) 650 mg PO Q4H PRN PRN Reason: FEVER OR PAIN Allopurinol (Zyloprim -) 100 mg PO BID [facility] Last Admin: 06/27/16 10:30 Dose: 100 mg Clindamycin HCl (Cleocin -) 300 mg PO TID [facility] Last Admin: 06/27/16 06:02 Dose: 300 mg Ferrous Sulfate (Feosol -) 325 mg PO BIDWM [facility] Last Admin: 06/27/16 08:23 Dose: 325 mg Furosemide (Lasix -) 40 mg PO DAILY [facility] Last Admin: 06/27/16 10:30 Dose: 40 mg Gabapentin (Neurontin -) 100 mg PO TID [facility] Last Admin: 06/27/16 06:02 Dose: 100 mg Piperacillin Sod/Tazobactam Sod (Zosyn 3.375gm Ivpb (Pre-Docked)) 50 mls @ 100 mls/hr IVPB Q8H-IV MICHELLE PRN Reason: Protocol Last Admin: 06/27/16 10:30 Dose: 100 mls/hr - Objective Vital Signs: Vital Signs Temperature 98.0 F 06/27/16 06:00 Pulse Rate 78 06/27/16 06:00 Respiratory Rate 20 06/27/16 06:00 Blood Pressure 119/60 06/27/16 06:00 O2 Sat by Pulse Oximetry (%) 96 06/26/16 21:00 Constitutional: Yes: No Distress, Calm Cardiovascular: Yes: Regular Rate and Rhythm Respiratory: Yes: Regular, CTA Bilaterally Gastrointestinal: Yes: Normal Bowel Sounds, Soft Musculoskeletal: Yes: WNL, Other Wound/Incision: Yes: Dressing Dry and Intact Neurological: Yes: Alert, Oriented Labs: CBC, BMP 06/27/16 07:45 06/27/16 07:00 INR, PTT INR 1.20 (0.82-1.09) H 06/24/16 13:37 Assessment/Plan 1. Wound infection 2. Chronic Anemia 3. Chronic Kidney Disease: 4. HTN: 5. CHF 6. Gout: organism noted sensitivities noted plan continue current abx continue wound care
--- NOTE | 2016-06-27 16:58 | PN ---
Teaching Attending Note Name of Resident: Aileen Perez ATTENDING PHYSICIAN STATEMENT I saw and evaluated the patient. I reviewed the resident's note and discussed the case with the resident. I agree with the resident's findings and plan as documented. SUBJECTIVE:asymptomatic. denies Cp, SOB,fever, chills, N/v/c/D OBJECTIVE: Last Vital Signs Temp Pulse Resp BP Pulse Ox 97.8 F 77 20 114/61 98 06/27/16 15:00 06/27/16 15:00 06/27/16 15:00 06/27/16 15:00 06/27/16 09:00 General NAD Extremities chronic venous changes. B/L LE dressings. c/d/i Microbiology 06/24/16 12:50 Ankle - Left Lateral Gram Stain - Final 06/24/16 12:50 Ankle - Left Lateral Wound Culture - Final Proteus Mirabilis Pseudomonas Aeruginosa Beta Hem Streptococcus Group C Mr S Aureus 06/24/16 12:57 Blood - Peripheral Venous Blood Culture - Preliminary NO GROWTH OBTAINED AFTER 72 HOURS, INCUBATION TO CONTINUE FOR 2 DAYS. 06/24/16 12:57 Blood - Peripheral Venous Blood Culture - Preliminary NO GROWTH OBTAINED AFTER 72 HOURS, INCUBATION TO CONTINUE FOR 2 DAYS. ASSESSMENT AND PLAN: 56yo M with PMH anemia, CKD, HTN, CHF, chronic venous ulcer presented to the ER and was admitted for further evaluation of their emergent condition 1. B/L venous stasis ulcer- appreciate both vasc surgery and ID recommendations. WCx results noted. will d/w ID about duration of therapy and if abx can be switched to oral abx. (proteus and pseudomonas both sensitive to levaquin) and clinda. cont local wound care. will need vascular surgery follow up. cont Zosyn/clinda day 4. 2. Acute normocytic anemia- s/p 3 unit PRBC. rectal exam reported negative. cont iron supplementation. no indication for txn at this time. 3. Hyperkalemia- resolved 4. CKD- at baseline 5. DVT ppx- EAM
--- NOTE | 2016-06-27 17:12 | PN ---
<ChrisAileen - Last Filed: 06/27/16 17:12> Physical Exam: SUBJECTIVE: Patient seen and examined, no new complaints, afebrile, no pain, decreased odor coming from legs. OBJECTIVE: Vital Signs Period Temp Pulse Resp BP Sys/Mcfarland Pulse Ox Last 24 Hr 97.7 F-98.5 F 65-78 18-20 111-139/60-74 96-98 GENERAL: The patient obese is awake, alert, and fully oriented, in no acute distress. HEAD: Normal with no signs of trauma. LUNGS: Breath sounds equal, clear to auscultation bilaterally, no wheezes, no crackles, no accessory muscle use. HEART: Regular rate and rhythm, S1, S2 without murmur, rub or gallop. ABDOMEN: Soft, nontender, nondistended, normoactive bowel sounds, no guarding, no rebound, no hepatosplenomegaly, no masses. EXTREMITIES: 2+ pulses, warm, well-perfused, no edema. B/L wounds;macerated tissue with pink granulation tissue. large ulcerated area NEUROLOGICAL: Cranial nerves II through XII grossly intact. Normal speech, gait not observed. PSYCH: Normal mood, normal affect. SKIN: Warm, dry, normal turgor, no rashes or lesions noted Laboratory Results - last 24 hr 06/27/16 06/27/16 07:00 07:45 WBC 6.7 RBC 3.20 L Hgb 8.0 L Hct 25.3 L MCV 79.2 L MCHC 31.5 L RDW 17.4 H Plt Count 212 MPV 9.3 Neutrophils % 73.4 Lymphocytes % 12.1 Monocytes % 9.1 Eosinophils % 4.9 H Basophils % 0.5 Sodium 141 Potassium 5.1 Chloride 109 H Carbon Dioxide 26 Anion Gap 6 L BUN 34 H Creatinine 2.1 H Random Glucose 70 L D Calcium 7.6 L Active Medications Generic Name Dose Route Start Last Admin Trade Name Freq PRN Reason Stop Dose Admin Acetaminophen 650 mg 06/24/16 15:52 Tylenol - PO Q4H PRN FEVER OR PAIN Allopurinol 100 mg 06/24/16 22:00 06/27/16 10:30 Zyloprim - PO 100 mg BID MICHELLE Administration Clindamycin HCl 300 mg 06/25/16 14:00 06/27/16 14:34 Cleocin - PO 300 mg TID MICHELLE Administration Ferrous Sulfate 325 mg 06/26/16 17:30 06/27/16 08:23 Feosol - PO 325 mg BIDWM MICHELLE Administration Furosemide 40 mg 06/25/16 10:00 06/27/16 10:30 Lasix - PO 40 mg DAILY MICHELLE Administration Gabapentin 100 mg 06/24/16 22:00 06/27/16 14:34 Neurontin - PO 100 mg TID MICHELLE Administration Piperacillin Sod/Tazobactam Sod 50 mls @ 100 mls/hr 06/25/16 02:00 06/27/16 10: 30 Zosyn 3.375gm Ivpb (Pre-Docked) IVPB 100 mls/hr Q8H-IV MICHELLE Administration Protocol Microbiology 06/24/16 12:50 Ankle - Left Lateral Gram Stain - Final 06/24/16 12:50 Ankle - Left Lateral Wound Culture - Preliminary Proteus Mirabilis Pseudomonas Aeruginosa Beta Hemolytic Strep Presumptive Mrsa (Pbp2a Pos) 06/24/16 12:57 Blood - Peripheral Venous Blood Culture - Preliminary NO GROWTH OBTAINED AFTER 24 HOURS, INCUBATION TO CONTINUE FOR 4 DAYS. 06/24/16 12:57 Blood - Peripheral Venous Blood Culture - Preliminary NO GROWTH OBTAINED AFTER 24 HOURS, INCUBATION TO CONTINUE FOR 4 DAYS. ASSESSMENT/PLAN: 56 year old male with a PMHx of CHF, HTN, aortic root dilatation, CKD, chronic venous stasis ulcers of bilateral lower extremities, presents with a one week history of foul smelling wound. Wound clinic every Monday,was asked to go to ER last week by Dr. Eric, patient refused. 1. Wound infection secondary to chronic venous stasis ulcer; -IV antibiotics to cover MRSA and pseudomonus; IV zosyn and clindamycin -wound and blood cultures; as above -angiogram needed if has not had; -ID consult/ Dr. Eric consulted 2. Chronic Anemia most likely secondary to chronic kidney disease: Hemoglobin 7.6 today -Transfuse 2U PRBC on admission -iron studies -transufe another unit today; need to maintain heme >8 due to history of cardiac and chronic kidney disease 3. Chronic Kidney Disease: -BUN/Cr; baseline 1.8-2.3 -trend; 4. HTN: controlled -lasix 40mg po daily 5. HX of CHF: controlled -continue lasix 6. Gout: -cont allopurinol 100mg po bid 7. Hyperkalemia: resolved FEN: Fluids: po Electrolytes: hyperkalemia; 5.5; f/u bmp VTE prophylaxis: heparin sq Disposition: IV antibiotics ; Problem List - Problems (1) Cellulitis and abscess of leg Code(s): L02.419 - CUTANEOUS ABSCESS OF LIMB, UNSPECIFIED L03.119 - CELLULITIS OF UNSPECIFIED PART OF LIMB (2) Severe anemia Code(s): D64.9 - ANEMIA, UNSPECIFIED (3) Congestive heart failure Code(s): I50.9 - HEART FAILURE, UNSPECIFIED (4) Dilated aortic root Code(s): I77.810 - THORACIC AORTIC ECTASIA (5) Iron deficiency anemia Code(s): D50.9 - IRON DEFICIENCY ANEMIA, UNSPECIFIED (6) Lymphedema Code(s): I89.0 - LYMPHEDEMA, NOT ELSEWHERE CLASSIFIED (7) Morbid obesity Code(s): E66.01 - MORBID (SEVERE) OBESITY DUE TO EXCESS CALORIES (8) Venous stasis ulcers of both lower extremities Code(s): I83.019 - VARICOSE VEINS OF RIGHT LOWER EXTREMITY W ULCER OF UNSP SITE I83.029 - VARICOSE VEINS OF LEFT LOWER EXTREMITY W ULCER OF UNSP SITE Visit type - Emergency Visit Emergency Visit: Yes ED Registration Date: 06/24/16 Care time: The patient presented to the Emergency Department on the above date and was hospitalized for further evaluation of their emergent condition. - New Patient This patient is new to me today: No - Critical Care Critical Care patient: No <Eliot Xiong - Last Filed: 06/28/16 17:03> Physical Exam: 56 year old male with a past medical history of anemia, aortic root dilatation, CKD, CHF, HTN, gout, chronic venous stasis ulcers (wound care every Monday, sees Dr. Denise Eric), who was sent over from wound care for a foul smelling, hemorrhagic, LLE ulcer -legs clinically appear to have improved greatly -vascular surgery consult appreciated and wound care care recs seen -no fever no elevated WBC -currently on clinda/zosyn -discharge in the AM on PO clinda and augmentin with visiting nurse and follow up in wound care clinic
[2016-06-28] MEDS: PIPERACILLIN/TAZOB 3.375 GM 50 ML IVPB SCH ×3 (02:53→17:22)
[2016-06-28] MEDS: CLINDAMYCIN HCL 150 MG CAPSULE (FP) PO SCH ×3 (06:46→22:26)
[2016-06-28] MEDS: GABAPENTIN 100 MG CAPSULE (FP) PO SCH ×3 (06:47→22:26)
[2016-06-28] MEDS: FERROUS SO4 325 MG TABLET (FP) PO SCH ×2 (08:34→17:22)
[2016-06-28 08:46] LABS: MCH 25.2 pg (25.7-33.7); MCHC 31.4 g/dl (32.0-35.9); MEAN CELL VOLUME 80.1 fl (80-96); MEAN PLT VOLUME 8.8 fl (7.5-11.1); PLATELET COUNT 203 K/MM3 (134-434); RDW 17.8 % (11.9-15.9); WHITE BLOOD COUNT 7.1 K/mm3 (4.0-10.0)
[2016-06-28 09:15] LABS: CALCIUM 7.8 mg/dL (8.5-10.1); CREATININE 2.1 mg/dL (0.7-1.3)
[2016-06-28] MEDS ORDERED: ASPIRIN 81 MG CHEWABLE TABLETS PO ONE (09:58)
[2016-06-28] MEDS ORDERED: PANTOPRAZOLE 40 MG TABLET (FP) PO ONE (09:59)
[2016-06-28 10:03] LABS: TROPONIN I 0.04 ng/ml (0.00-0.05)
[2016-06-28] MEDS: ALLOPURINOL 100 MG TABLET (FP) PO SCH ×2 (10:20→22:26)
[2016-06-28] MEDS: FUROSEMIDE 40 MG TABLET (FP) PO SCH (10:20)
--- NOTE | 2016-06-28 12:34 | EKG ---
Test Reason : Blood Pressure : / mmHG Vent. Rate : 080 BPM Atrial Rate : 080 BPM P-R Int : 208 ms QRS Dur : 110 ms QT Int : 396 ms P-R-T Axes : 077 -33 087 degrees QTc Int : 456 ms SINUS RHYTHM WITH PREMATURE ATRIAL COMPLEXES LEFT AXIS DEVIATION ABNORMAL ECG WHEN COMPARED WITH ECG OF 24-JUN-2016 14:45, PREMATURE ATRIAL COMPLEXES ARE NOW PRESENT Confirmed by SAVANNAH MURPHY, AGNIESZKA ([id number]) on 06/28/2016 12:34:25 PM Referred By: Anastasiia SALCEDO Confirmed By:AGNIESZKA NUÑEZ MD
--- NOTE | 2016-06-28 17:29 | PN ---
Physical Exam: SUBJECTIVE: Patient seen and examined, c/o anterior substernal, non radiating chest pain burning in sensation 10/10 since early this am. Patient denies lightheadedness, dizziness, fever, chills, palpitations, n,v. OBJECTIVE: Vital Signs Period Temp Pulse Resp BP Sys/Mcfarland Pulse Ox Last 24 Hr 97.8 F-98.2 F 77-81 20-21 109-139/64-74 98-98 GENERAL: The patient is awake, alert, and fully oriented, in no acute distress. HEAD: Normal with no signs of trauma. EYES: PERRL, extraocular movements intact, sclera anicteric, conjunctiva clear. No ptosis. ENT: Ears normal, nares patent, oropharynx clear without exudates, moist mucous membranes. NECK: Trachea midline, full range of motion, supple. LUNGS: Breath sounds equal, clear to auscultation bilaterally, no wheezes, LLL mild crackles, no accessory muscle use. HEART: Regular rate and rhythm, S1, S2 without murmur, rub or gallop. ABDOMEN: Soft, nontender, nondistended, normoactive bowel sounds, no guarding, no rebound, no hepatosplenomegaly, no masses. EXTREMITIES: 2+ pulses, warm, well-perfused, no edema. B/l LE large chronic venouos statis wound ulcer; re wrapped today; Right sided slightly hemorrhagic, , healing, visible granulation tissue. NEUROLOGICAL: Cranial nerves II through XII grossly intact. Normal speech, gait not observed. PSYCH: Normal mood, normal affect. SKIN: Warm, dry, normal turgor, no rashes or lesions noted Laboratory Results - last 24 hr 06/24/16 06/28/16 06/28/16 15:55 08:00 08:00 WBC 7.1 RBC 3.40 L Hgb 8.5 L Hct 27.2 L MCV 80.1 MCHC 31.4 L RDW 17.8 H Plt Count 203 MPV 8.8 Sodium 140 Potassium 5.1 Chloride 105 Carbon Dioxide 27 Anion Gap 8 BUN 33 H Creatinine 2.1 H Random Glucose 75 Calcium 7.8 L Creatine Kinase 51 Troponin I 0.04 D B-Natriuretic Peptide 1144.78 H Blood Type B POSITIVE Antibody Screen Negative Crossmatch See Detail Spec Expiration Date 06/28/16 06/28/16 09:37 14:45 WBC RBC Hgb Hct MCV MCHC RDW Plt Count MPV Sodium Potassium Chloride Carbon Dioxide Anion Gap BUN Creatinine Random Glucose Calcium Creatine Kinase Cancelled Troponin I Cancelled 0.04 B-Natriuretic Peptide Blood Type Antibody Screen Crossmatch Spec Expiration Date Active Medications Generic Name Dose Route Start Last Admin Trade Name Freq PRN Reason Stop Dose Admin Acetaminophen 650 mg 06/24/16 15:52 Tylenol - PO Q4H PRN FEVER OR PAIN Allopurinol 100 mg 06/24/16 22:00 06/28/16 10:20 Zyloprim - PO 100 mg BID MICHELLE Administration Clindamycin HCl 300 mg 06/25/16 14:00 06/28/16 14:18 Cleocin - PO 300 mg TID MICHELLE Administration Ferrous Sulfate 325 mg 06/26/16 17:30 06/28/16 17:22 Feosol - PO 325 mg BIDWM MICHELLE Administration Furosemide 40 mg 06/25/16 10:00 06/28/16 10:20 Lasix - PO 40 mg DAILY MICHELLE Administration Gabapentin 100 mg 06/24/16 22:00 06/28/16 14:18 Neurontin - PO 100 mg TID MICHELLE Administration Piperacillin Sod/Tazobactam Sod 50 mls @ 100 mls/hr 06/25/16 02:00 06/28/16 17: 22 Zosyn 3.375gm Ivpb (Pre-Docked) IVPB 100 mls/hr Q8H-IV MICHELLE Administration Protocol Microbiology 06/24/16 12:50 Ankle - Left Lateral Gram Stain - Final 06/24/16 12:50 Ankle - Left Lateral Wound Culture - Preliminary Proteus Mirabilis Pseudomonas Aeruginosa Beta Hemolytic Strep Presumptive Mrsa (Pbp2a Pos) 06/24/16 12:57 Blood - Peripheral Venous Blood Culture - Preliminary NO GROWTH OBTAINED AFTER 24 HOURS, INCUBATION TO CONTINUE FOR 4 DAYS. 06/24/16 12:57 Blood - Peripheral Venous Blood Culture - Preliminary NO GROWTH OBTAINED AFTER 24 HOURS, INCUBATION TO CONTINUE FOR 4 DAYS. ASSESSMENT/PLAN: 56 year old male with a PMHx of CHF, HTN, aortic root dilatation, CKD, chronic venous stasis ulcers of bilateral lower extremities, followed by Dr. Eric, at wound clinic. chest pain this am -trops negitve x2; 3rd penign -ekg + PAC, new from previous -echo pending -cxr showing increase interstitial marking -asa given -protonix givin -lasix 40mg po 1. Wound infection secondary to chronic venous stasis ulcer; -IV antibiotics to cover MRSA and pseudomonus; IV zosyn and clindamycin -can d/c on po pending echo -wound and blood cultures; as above -angiogram needed if has not had; -ID consult/ Dr. Eric consulted 2. Chronic Anemia most likely secondary to chronic kidney disease: Hemoglobin 7.6 today -Transfuse 2U PRBC on admission -iron studies -transufe another unit today; need to maintain heme >8 due to history of cardiac and chronic kidney disease 3. Chronic Kidney Disease: -BUN/Cr; baseline 1.8-2.3 -trend; 4. HTN: controlled -lasix 40mg po daily 5. HX of CHF: controlled -continue lasix 6. Gout: -cont allopurinol 100mg po bid 7. Hyperkalemia: resolved FEN: Fluids: po Electrolytes: hyperkalemia; resolved VTE prophylaxis: heparin sq Disposition: IV antibiotics ; can be d/c in am on po antibiotics; wound care at home; f/u in clinic Problem List - Problems (1) Cellulitis and abscess of leg Code(s): L02.419 - CUTANEOUS ABSCESS OF LIMB, UNSPECIFIED L03.119 - CELLULITIS OF UNSPECIFIED PART OF LIMB (2) Severe anemia Code(s): D64.9 - ANEMIA, UNSPECIFIED (3) Congestive heart failure Code(s): I50.9 - HEART FAILURE, UNSPECIFIED (4) Dilated aortic root Code(s): I77.810 - THORACIC AORTIC ECTASIA (5) Iron deficiency anemia Code(s): D50.9 - IRON DEFICIENCY ANEMIA, UNSPECIFIED (6) Lymphedema Code(s): I89.0 - LYMPHEDEMA, NOT ELSEWHERE CLASSIFIED (7) Morbid obesity Code(s): E66.01 - MORBID (SEVERE) OBESITY DUE TO EXCESS CALORIES (8) Venous stasis ulcers of both lower extremities Code(s): I83.019 - VARICOSE VEINS OF RIGHT LOWER EXTREMITY W ULCER OF UNSP SITE I83.029 - VARICOSE VEINS OF LEFT LOWER EXTREMITY W ULCER OF UNSP SITE Visit type - Emergency Visit Emergency Visit: Yes ED Registration Date: 06/24/16 Care time: The patient presented to the Emergency Department on the above date and was hospitalized for further evaluation of their emergent condition. - New Patient This patient is new to me today: No - Critical Care Critical Care patient: No
[2016-06-29] MEDS: PIPERACILLIN/TAZOB 3.375 GM 50 ML IVPB SCH ×3 (02:57→18:03)
[2016-06-29] MEDS: GABAPENTIN 100 MG CAPSULE (FP) PO SCH ×3 (06:35→22:01)
[2016-06-29] MEDS: CLINDAMYCIN HCL 150 MG CAPSULE (FP) PO SCH ×3 (06:35→22:01)
[2016-06-29 07:16] LABS: EOSINOPHIL 7.8 % (0-4.5); MCHC 31.2 g/dl (32.0-35.9); MEAN CELL VOLUME 79.9 fl (80-96); MEAN PLT VOLUME 8.6 fl (7.5-11.1); NEUTROPHILS 69.4 % (42.8-82.8); PLATELET COUNT 174 K/MM3 (134-434); WHITE BLOOD COUNT 7.1 K/mm3 (4.0-10.0)
[2016-06-29 07:42] LABS: CALCIUM 7.5 mg/dL (8.5-10.1); CREATININE 2.3 mg/dL (0.7-1.3)
[2016-06-29] MEDS: FUROSEMIDE 40 MG TABLET (FP) PO SCH (09:14)
[2016-06-29] MEDS: FERROUS SO4 325 MG TABLET (FP) PO SCH ×2 (09:14→18:03)
[2016-06-29] MEDS: ALLOPURINOL 100 MG TABLET (FP) PO SCH ×2 (09:14→22:01)
--- NOTE | 2016-06-29 12:00 | PN ---
Progress Note, Physician History of Present Illness: stable no new issues heartburn - Current Medication List Current Medications: Active Medications Acetaminophen (Tylenol -) 650 mg PO Q4H PRN PRN Reason: FEVER OR PAIN Allopurinol (Zyloprim -) 100 mg PO BID [facility] Last Admin: 06/29/16 09:14 Dose: 100 mg Clindamycin HCl (Cleocin -) 300 mg PO TID [facility] Last Admin: 06/29/16 06:35 Dose: 300 mg Ferrous Sulfate (Feosol -) 325 mg PO BIDWM [facility] Last Admin: 06/29/16 09:14 Dose: 325 mg Furosemide (Lasix -) 40 mg PO DAILY [facility] Last Admin: 06/29/16 09:14 Dose: 40 mg Gabapentin (Neurontin -) 100 mg PO TID [facility] Last Admin: 06/29/16 06:35 Dose: 100 mg Piperacillin Sod/Tazobactam Sod (Zosyn 3.375gm Ivpb (Pre-Docked)) 50 mls @ 100 mls/hr IVPB Q8H-IV [facility] PRN Reason: Protocol Last Admin: 06/29/16 09:14 Dose: 100 mls/hr - Objective Vital Signs: Vital Signs Temperature 98.8 F 06/29/16 08:58 Pulse Rate 75 06/29/16 08:58 Respiratory Rate 20 06/29/16 09:00 Blood Pressure 122/67 06/29/16 08:58 O2 Sat by Pulse Oximetry (%) 98 06/29/16 09:00 Constitutional: Yes: No Distress, Calm Cardiovascular: Yes: Regular Rate and Rhythm Respiratory: Yes: Regular, CTA Bilaterally Gastrointestinal: Yes: Normal Bowel Sounds, Soft Musculoskeletal: Yes: Other Extremities: Yes: Other Integumentary: Yes: Venous Stasis Changes Wound/Incision: Yes: Draining (improving), Excoriated, Other Neurological: Yes: Alert, Oriented Psychiatric: Yes: Alert, Oriented Labs: CBC, BMP 06/29/16 06:25 06/29/16 06:25 INR, PTT INR 1.20 (0.82-1.09) H 06/24/16 13:37 Assessment/Plan 1. Wound infection 2. Chronic Anemia 3. Chronic Kidney Disease: 4. HTN: 5. CHF 6. Gout: plan continue current abx continue wound care will ahve to decide termite helper about future
--- NOTE | 2016-06-29 17:34 | PN ---
<Aileen Perez - Last Filed: 06/29/16 17:19> Physical Exam: SUBJECTIVE: Patient seen and examined, still with burning chest pain, denies chest pressure, pain radiating down arm, palpitations, lightheadedness or ay other associated symptoms. OBJECTIVE: Vital Signs Period Temp Pulse Resp BP Sys/Mcfarland Pulse Ox Last 24 Hr 98.0 F-98.8 F 75-84 20-22 110-125/61-69 98-98 GENERAL: The patient is obese, awake, alert, and fully oriented, in no acute distress. HEAD: Normal with no signs of trauma. EYES: PERRL, extraocular movements intact, sclera anicteric, conjunctiva clear. No ptosis. ENT:dryed blood from left nostril NECK: Trachea midline, full range of motion, supple. LUNGS: Breath sounds equal, clear to auscultation bilaterally, no wheezes, no crackles, no accessory muscle use. HEART: Regular rate and rhythm, S1, S2 without murmur, rub or gallop. ABDOMEN: Soft, nontender, nondistended, normoactive bowel sounds, no guarding, no rebound, no hepatosplenomegaly, no masses. EXTREMITIES: 2+ pulses, warm, well-perfused, no edema. Bilateral chronic venous stasis ulcers, large areas hemorrhagic NEUROLOGICAL: Cranial nerves II through XII grossly intact. Normal speech, gait not observed. PSYCH: depressed mood, normal affect. SKIN: Warm, dry, normal turgor, no rashes or lesions noted Laboratory Results - last 24 hr 06/24/16 06/29/16 06/29/16 15:55 06:25 06:25 WBC 7.1 RBC 3.13 L Hgb 7.8 L Hct 25.0 L MCV 79.9 L MCHC 31.2 L RDW 18.0 H Plt Count 174 MPV 8.6 Neutrophils % 69.4 Lymphocytes % 12.2 Monocytes % 9.6 Eosinophils % 7.8 H Basophils % 1.0 Sodium 140 Potassium 5.0 Chloride 107 Carbon Dioxide 27 Anion Gap 6 L BUN 36 H Creatinine 2.3 H Random Glucose 90 Calcium 7.5 L B-Natriuretic Peptide 1356.25 H Blood Type B POSITIVE Antibody Screen Negative Crossmatch See Detail Spec Expiration Date Active Medications Generic Name Dose Route Start Last Admin Trade Name Freq PRN Reason Stop Dose Admin Acetaminophen 650 mg 03/10/17 15:52 Tylenol - PO Q4H PRN FEVER OR PAIN Allopurinol 100 mg 06/24/16 22:00 06/29/16 09:14 Zyloprim - PO 100 mg BID MICHELLE Administration Clindamycin HCl 300 mg 06/25/16 14:00 06/29/16 13:54 Cleocin - PO 300 mg TID MICHELLE Administration Ferrous Sulfate 325 mg 06/26/16 17:30 06/29/16 09:14 Feosol - PO 325 mg BIDWM MICHELLE Administration Furosemide 40 mg 06/25/16 10:00 06/29/16 09:14 Lasix - PO 40 mg DAILY MICHELLE Administration Gabapentin 100 mg 06/24/16 22:00 06/29/16 13:54 Neurontin - PO 100 mg TID MICHELLE Administration Piperacillin Sod/Tazobactam Sod 50 mls @ 100 mls/hr 06/25/16 02:00 06/29/16 09: 14 Zosyn 3.375gm Ivpb (Pre-Docked) IVPB 100 mls/hr Q8H-IV MICHELLE Administration Protocol ASSESSMENT/PLAN: Microbiology 06/24/16 12:50 Ankle - Left Lateral Gram Stain - Final 06/24/16 12:50 Ankle - Left Lateral Wound Culture - Preliminary Proteus Mirabilis Pseudomonas Aeruginosa Beta Hemolytic Strep Presumptive Mrsa (Pbp2a Pos) 06/24/16 12:57 Blood - Peripheral Venous Blood Culture - Preliminary NO GROWTH OBTAINED AFTER 24 HOURS, INCUBATION TO CONTINUE FOR 4 DAYS. 06/24/16 12:57 Blood - Peripheral Venous Blood Culture - Preliminary NO GROWTH OBTAINED AFTER 24 HOURS, INCUBATION TO CONTINUE FOR 4 DAYS. ASSESSMENT/PLAN: 56 year old male with a PMHx of CHF, HTN, aortic root dilatation, CKD, chronic venous stasis ulcers of bilateral lower extremities, followed by Dr. Eric, at wound clinic. Wound culture with mutli organism; see above; may need picc line. 1. Wound infection secondary to chronic venous stasis ulcer; -IV antibiotics to cover MRSA and pseudomonus; IV zosyn and clindamycin -can d/c on po pending echo -wound and blood cultures; as above -angiogram needed if has not had; -ID consult/ Dr. Eric consulted 2. Chronic Anemia most likely secondary to chronic kidney disease: Hemoglobin drop today; trend -Transfuse 2U PRBC on admission -iron studies -transfuse unit if heme <7.0; due to history of cardiac and chronic kidney disease 3. Chronic Kidney Disease: still around around baseline; -BUN/Cr; baseline 1.8-2.3 -trend; 4. HTN: controlled -lasix 40mg po daily 5. HX of CHF: controlled -continue lasix 6. Gout: -cont allopurinol 100mg po bid 7. Hyperkalemia: resolved 8. Chest buning pain most likely secondary to GERD -trops negitve x3 -ekg PAC -echo -cxr showing increase interstitial marking -asa given -protonix givin -lasix 40mg po FEN: Fluids: po Electrolytes: hyperkalemia; resolved VTE prophylaxis: heparin sq Disposition: IV antibiotics ; can be d/c in am on po antibiotics; wound care at home; f/u in clinic Problem List - Problems (1) Cellulitis and abscess of leg Code(s): L02.419 - CUTANEOUS ABSCESS OF LIMB, UNSPECIFIED L03.119 - CELLULITIS OF UNSPECIFIED PART OF LIMB (2) Severe anemia Code(s): D64.9 - ANEMIA, UNSPECIFIED (3) Congestive heart failure Code(s): I50.9 - HEART FAILURE, UNSPECIFIED (4) Dilated aortic root Code(s): I77.810 - THORACIC AORTIC ECTASIA (5) Iron deficiency anemia Code(s): D50.9 - IRON DEFICIENCY ANEMIA, UNSPECIFIED (6) Lymphedema Code(s): I89.0 - LYMPHEDEMA, NOT ELSEWHERE CLASSIFIED (7) Morbid obesity Code(s): E66.01 - MORBID (SEVERE) OBESITY DUE TO EXCESS CALORIES (8) Venous stasis ulcers of both lower extremities Code(s): I83.019 - VARICOSE VEINS OF RIGHT LOWER EXTREMITY W ULCER OF UNSP SITE I83.029 - VARICOSE VEINS OF LEFT LOWER EXTREMITY W ULCER OF UNSP SITE Visit type - Emergency Visit Emergency Visit: Yes ED Registration Date: 06/24/16 Care time: The patient presented to the Emergency Department on the above date and was hospitalized for further evaluation of their emergent condition. - New Patient This patient is new to me today: Yes Date on this admission: 06/29/16 - Critical Care Critical Care patient: No <Eliot Xiong - Last Filed: 06/30/16 14:09> Physical Exam: ATTENDING PHYSICIAN STATEMENT I saw and evaluated the patient. I reviewed the resident's note and discussed the case with the resident. I agree with the resident's findings and plan as documented. SUBJECTIVE: seen and evaluated at the bedside OBJECTIVE: ASSESSMENT AND PLAN: 56 year old male with a past medical history of anemia, aortic root dilatation, CKD, CHF, HTN, gout, chronic venous stasis ulcers (wound care every Monday, sees Dr. Denise Eric), who was sent over from wound care for a foul smelling, hemorrhagic, LLE ulcer -legs clinically appear to have improved greatly -vascular surgery consult appreciated and wound care care recs seen -no fever no elevated WBC -currently on clinda/zosyn -ID attending discussed case briefly with resident and recs were possibly for fci IV abx via PICC; will follow up
[2016-06-30] MEDS: PIPERACILLIN/TAZOB 3.375 GM 50 ML IVPB SCH ×2 (02:00→10:53)
[2016-06-30] MEDS: GABAPENTIN 100 MG CAPSULE (FP) PO SCH ×3 (06:28→22:14)
[2016-06-30] MEDS: CLINDAMYCIN HCL 150 MG CAPSULE (FP) PO SCH ×3 (06:28→22:14)
[2016-06-30] MEDS: ALLOPURINOL 100 MG TABLET (FP) PO SCH ×2 (10:54→22:13)
[2016-06-30] MEDS: FERROUS SO4 325 MG TABLET (FP) PO SCH ×2 (10:54→18:04)
[2016-06-30] MEDS: FUROSEMIDE 40 MG TABLET (FP) PO SCH (10:54)
[2016-06-30] MEDS: ACETAMINOPHEN 325 MG TABLET (FP) PO PRN ×2 (13:24→22:13)
--- NOTE | 2016-06-30 14:43 | PN ---
Physical Exam: SUBJECTIVE: Patient seen and examined, burning sensation in chest has improved. Afebrile. c/o arm/hand pain at, right sided where iv insertion is. No erythema, no edema. OBJECTIVE: Vital Signs Period Temp Pulse Resp BP Sys/Mcfarland Pulse Ox Last 24 Hr 98.4 F-99.2 F 80-94 20-22 128-138/65-80 97 GENERAL: The patient is obeseawake, alert, and fully oriented, in no acute distress. HEAD: Normal with no signs of trauma. EYES: PERRL, extraocular movements intact, sclera anicteric, conjunctiva clear. No ptosis. ENT: Ears normal, nares patent, oropharynx clear without exudates, moist mucous membranes. NECK: Trachea midline, full range of motion, supple. LUNGS: Breath sounds equal, clear to auscultation bilaterally, no wheezes, no crackles, no accessory muscle use. HEART: Regular rate and rhythm, S1, S2 without murmur, rub or gallop. ABDOMEN: Soft, nontender, nondistended, normoactive bowel sounds, no guarding, no rebound, no hepatosplenomegaly, no masses. EXTREMITIES: 2+ pulses, warm, well-perfused, no edema. Chronic venous stasis ulcer wound infection; healing with granulation tissue visible, less serosanginous flud drainage, less blood. B/L feet everion NEUROLOGICAL: Cranial nerves II through XII grossly intact. Normal speech, gait not observed. PSYCH: normal mood, normal affect. SKIN: Warm, dry, normal turgor, no rashes or lesions noted Laboratory Results - last 24 hr 06/24/16 06/29/16 15:55 21:30 Troponin I 0.04 Blood Type B POSITIVE Antibody Screen Negative Crossmatch See Detail Spec Expiration Date Active Medications Generic Name Dose Route Start Last Admin Trade Name Freq PRN Reason Stop Dose Admin Acetaminophen 650 mg 06/24/16 15:52 06/30/16 13:24 Tylenol - PO 650 mg Q4H PRN Administration FEVER OR PAIN Allopurinol 100 mg 06/24/16 22:00 06/30/16 10:54 Zyloprim - PO 100 mg BID MICHELLE Administration Clindamycin HCl 300 mg 06/25/16 14:00 06/30/16 13:24 Cleocin - PO 300 mg TID MICHELLE Administration Ferrous Sulfate 325 mg 06/26/16 17:30 06/30/16 10:54 Feosol - PO 325 mg BIDWM MICHELLE Administration Furosemide 40 mg 06/25/16 10:00 06/30/16 10:54 Lasix - PO 40 mg DAILY MICHELLE Administration Gabapentin 100 mg 06/24/16 22:00 06/30/16 13:24 Neurontin - PO 100 mg TID MICHELLE Administration Piperacillin Sod/Tazobactam Sod 50 mls @ 100 mls/hr 06/25/16 02:00 06/30/16 10: 53 Zosyn 3.375gm Ivpb (Pre-Docked) IVPB 100 mls/hr Q8H-IV MICHELLE Administration Protocol Microbiology 06/24/16 12:50 Ankle - Left Lateral Gram Stain - Final 06/24/16 12:50 Ankle - Left Lateral Wound Culture - Preliminary Proteus Mirabilis Pseudomonas Aeruginosa Beta Hemolytic Strep Presumptive Mrsa (Pbp2a Pos) 06/24/16 12:57 Blood - Peripheral Venous Blood Culture - Preliminary NO GROWTH OBTAINED AFTER 24 HOURS, INCUBATION TO CONTINUE FOR 4 DAYS. 06/24/16 12:57 Blood - Peripheral Venous Blood Culture - Preliminary NO GROWTH OBTAINED AFTER 24 HOURS, INCUBATION TO CONTINUE FOR 4 DAYS. ASSESSMENT/PLAN: 56 year old male with a PMHx of CHF, HTN, aortic root dilatation, CKD, chronic venous stasis ulcers of bilateral lower extremities, followed by Dr. Eric, at wound clinic. Wound culture with mutli organism; see above; may need picc line. 1. Wound infection secondary to chronic venous stasis ulcer; -IV antibiotics to cover MRSA and pseudomonus; IV zosyn and clindamycin -wound and blood cultures; as above -angiogram needed if has not had; -ID consult/ Dr. Eric consulted 2. Chronic Anemia most likely secondary to chronic kidney disease: Hemoglobin drop today; trend -Transfuse 2U PRBC on admission -iron studies -transfuse unit if heme <7.0; due to history of cardiac and chronic kidney disease 3. Chronic Kidney Disease: still around around baseline; -BUN/Cr; baseline 1.8-2.3 -trend; 4. HTN: controlled -lasix 40mg po daily 5. HX of CHF: controlled -continue lasix 6. Gout: -cont allopurinol 100mg po bid 7. Hyperkalemia: resolved 8. Chest buning pain most likely secondary to GERD ; improved with antacid -trops negative x3 -ekg PAC -echo showing mildly reduced LVEF; RVSP >60mmhg; may be related to sleep apnea; -cxr showing increase interstitial marking -protonix givin, Mylanta -lasix 40mg po FEN: Fluids: po Electrolytes: hyperkalemia; resolved VTE prophylaxis: heparin sq Disposition: IV antibiotics ;decide if patient need picc line or is ok to go home on po antibiotics; will discuss with, Dr. Pro Problem List - Problems (1) Cellulitis and abscess of leg Code(s): L02.419 - CUTANEOUS ABSCESS OF LIMB, UNSPECIFIED L03.119 - CELLULITIS OF UNSPECIFIED PART OF LIMB (2) Severe anemia Code(s): D64.9 - ANEMIA, UNSPECIFIED (3) Congestive heart failure Code(s): I50.9 - HEART FAILURE, UNSPECIFIED (4) Dilated aortic root Code(s): I77.810 - THORACIC AORTIC ECTASIA (5) Iron deficiency anemia Code(s): D50.9 - IRON DEFICIENCY ANEMIA, UNSPECIFIED (6) Lymphedema Code(s): I89.0 - LYMPHEDEMA, NOT ELSEWHERE CLASSIFIED (7) Morbid obesity Code(s): E66.01 - MORBID (SEVERE) OBESITY DUE TO EXCESS CALORIES (8) Venous stasis ulcers of both lower extremities Code(s): I83.019 - VARICOSE VEINS OF RIGHT LOWER EXTREMITY W ULCER OF UNSP SITE I83.029 - VARICOSE VEINS OF LEFT LOWER EXTREMITY W ULCER OF UNSP SITE Visit type - Emergency Visit Emergency Visit: Yes ED Registration Date: 06/24/16 Care time: The patient presented to the Emergency Department on the above date and was hospitalized for further evaluation of their emergent condition. - New Patient This patient is new to me today: No - Critical Care Critical Care patient: No
--- NOTE | 2016-06-30 15:19 | PN ---
Progress Note, Physician History of Present Illness: patient doing well legs improving - Current Medication List Current Medications: Active Medications Acetaminophen (Tylenol -) 650 mg PO Q4H PRN PRN Reason: FEVER OR PAIN Last Admin: 06/30/16 13:24 Dose: 650 mg Allopurinol (Zyloprim -) 100 mg PO BID [facility] Last Admin: 06/30/16 10:54 Dose: 100 mg Clindamycin HCl (Cleocin -) 300 mg PO TID [facility] Last Admin: 06/30/16 13:24 Dose: 300 mg Ferrous Sulfate (Feosol -) 325 mg PO BIDWM [facility] Last Admin: 06/30/16 10:54 Dose: 325 mg Furosemide (Lasix -) 40 mg PO DAILY [facility] Last Admin: 06/30/16 10:54 Dose: 40 mg Gabapentin (Neurontin -) 100 mg PO TID [facility] Last Admin: 06/30/16 13:24 Dose: 100 mg Piperacillin Sod/Tazobactam Sod (Zosyn 3.375gm Ivpb (Pre-Docked)) 50 mls @ 100 mls/hr IVPB Q8H-IV MICHELLE PRN Reason: Protocol Last Admin: 06/30/16 10:53 Dose: 100 mls/hr - Objective Vital Signs: Vital Signs Temperature 99.1 F 06/30/16 05:55 Pulse Rate 88 06/30/16 05:55 Respiratory Rate 20 06/30/16 05:55 Blood Pressure 138/80 06/30/16 05:55 O2 Sat by Pulse Oximetry (%) 97 06/29/16 21:00 Constitutional: Yes: No Distress, Calm Cardiovascular: Yes: Regular Rate and Rhythm Respiratory: Yes: Regular, CTA Bilaterally Gastrointestinal: Yes: Normal Bowel Sounds, Soft Musculoskeletal: Yes: Other Extremities: Yes: Other Integumentary: Yes: Other Wound/Incision: Yes: Dressing Dry and Intact, Dressing Removed, Other (draiange much better) Labs: CBC, BMP 06/29/16 06:25 06/29/16 06:25 INR, PTT INR 1.20 (0.82-1.09) H 06/24/16 13:37 Assessment/Plan 1. Wound infection 2. Chronic Anemia 3. Chronic Kidney Disease: 4. HTN: 5. CHF 6. Gout: plan will change to oral abx watch for a day on oral abx if remains stable can be d/[place] tomorrow clinda 300mg every 8hourly for 10 more days levaquin 250mg daily for 10 more days
[2016-06-30 16:55] LABS: MCH 25.6 pg (25.7-33.7); MEAN PLT VOLUME 9.3 fl (7.5-11.1); PLATELET COUNT 229 K/MM3 (134-434); RDW 18.4 % (11.9-15.9); WHITE BLOOD COUNT 8.8 K/mm3 (4.0-10.0)
[2016-07-01] MEDS: GABAPENTIN 100 MG CAPSULE (FP) PO SCH (06:32)
[2016-07-01] MEDS: CLINDAMYCIN HCL 150 MG CAPSULE (FP) PO SCH (06:32)
[2016-07-01] MEDS: ACETAMINOPHEN 325 MG TABLET (FP) PO PRN (06:34)
[2016-07-01 08:29] LABS: MCH 24.9 pg (25.7-33.7); MCHC 31.4 g/dl (32.0-35.9); MEAN CELL VOLUME 79.3 fl (80-96); MEAN PLT VOLUME 8.9 fl (7.5-11.1); PLATELET COUNT 168 K/MM3 (134-434); RDW 18.6 % (11.9-15.9); WHITE BLOOD COUNT 7.1 K/mm3 (4.0-10.0)
[2016-07-01] MEDS: FUROSEMIDE 40 MG TABLET (FP) PO SCH (09:54)
[2016-07-01] MEDS: ALLOPURINOL 100 MG TABLET (FP) PO SCH (09:54)
[2016-07-01] MEDS: FERROUS SO4 325 MG TABLET (FP) PO SCH (09:55)
[2016-07-01 12:08] VITALS: BP 130/74; PULSE 84; TEMP 97.8
--- NOTE | 2016-07-01 13:39 | PN ---
Progress Note, Physician History of Present Illness: stable better wound healing well - Objective Vital Signs: Vital Signs Temperature 97.8 F 07/01/16 12:06 Pulse Rate 84 07/01/16 12:06 Respiratory Rate 20 07/01/16 12:06 Blood Pressure 130/74 07/01/16 12:06 O2 Sat by Pulse Oximetry (%) 97 06/30/16 21:00 Constitutional: Yes: No Distress, Calm Cardiovascular: Yes: Regular Rate and Rhythm Respiratory: Yes: Regular, CTA Bilaterally Gastrointestinal: Yes: Normal Bowel Sounds, Soft Musculoskeletal: Yes: Other Extremities: Yes: Other Integumentary: Yes: Erythema (resolved) Wound/Incision: Yes: Dressing Dry and Intact, Other (wounds healing well) Neurological: Yes: Alert, Oriented Labs: CBC, BMP 07/01/16 07:00 06/29/16 06:25 INR, PTT INR 1.20 (0.82-1.09) H 06/24/16 13:37 Assessment/Plan 1. Wound infection 2. Chronic Anemia 3. Chronic Kidney Disease: 4. HTN: 5. CHF 6. Gout: plan clinda 300mg every 8hourly for 10 more days levaquin 250mg daily for 10 more days f/u with wound care
--- NOTE | 2016-07-01 14:57 | DS ---
Physical Exam: SUBJECTIVE: Patient seen and examined, chest burning sensation has improved. Patient complaining of right hand/arm pain where IV was. NO erythema, no edema. OBJECTIVE: Vital Signs Period Temp Pulse Resp BP Sys/[place] Pulse Ox Last 24 Hr 97.8 F-98.8 F 80-90 18-20 116-130/55-74 97 PHYSICAL EXAM GENERAL: The patient is obese awake, alert, and fully oriented, in no acute distress. HEAD: Normal with no signs of trauma. LUNGS: Breath sounds equal, clear to auscultation bilaterally, no wheezes, no crackles, no accessory muscle use. HEART: Regular rate and rhythm, S1, S2 without murmur, rub or gallop. ABDOMEN: Soft, nontender, nondistended, normoactive bowel sounds, no guarding, no rebound, no hepatosplenomegaly, no masses. EXTREMITIES: 2+ pulses, B/L chronic venous status ulcer; +granulation, healing Right hand first digit, metacarpal joint swollen NEUROLOGICAL: Cranial nerves II through XII grossly intact. Normal speech, gait not observed. PSYCH: Normal mood, normal affect. SKIN: Warm, dry, normal turgor, no rashes or lesions noted. LABS Laboratory Results - last 24 hr 06/30/16 07/01/16 15:30 07:00 WBC 8.8 7.1 RBC 3.54 L 3.26 L Hgb 9.1 L D 8.1 L D Hct 28.3 L 25.9 L MCV 80.0 79.3 L MCHC 32.0 31.4 L RDW 18.4 H 18.6 H Plt Count 229 D 168 D MPV 9.3 8.9 HOSPITAL COURSE: Date of Admission:06/24/16 Date of Discharge: 07/01/16 Microbiology 06/24/16 12:50 Ankle - Left Lateral Gram Stain - Final 06/24/16 12:50 Ankle - Left Lateral Wound Culture - Preliminary Proteus Mirabilis Pseudomonas Aeruginosa Beta Hemolytic Strep Presumptive Mrsa (Pbp2a Pos) 06/24/16 12:57 Blood - Peripheral Venous Blood Culture - Preliminary NO GROWTH OBTAINED AFTER 24 HOURS, INCUBATION TO CONTINUE FOR 4 DAYS. 06/24/16 12:57 Blood - Peripheral Venous Blood Culture - Preliminary NO GROWTH OBTAINED AFTER 24 HOURS, INCUBATION TO CONTINUE FOR 4 DAYS. ASSESSMENT/PLAN: This is a 56 year old male with a PMHx of CHF, HTN, aortic root dilatation, CKD , chronic venous stasis ulcers of bilateral lower extremities, followed by Dr. Eric, at wound clinic. Wound culture with mutli organism; see above. Treated with IV zosyn and IV clindamycin, great improvement. Sent home on levaquin 250mg daily for ten days and clindamycin for 300mg q8h for ten days. Wound healing, afebrile, normotensive, stable vitals. Patient is following up with Dr. Eric every Monday for wound care. He also has visiting nurse every MWF. Patient has history of chronic anemia; he was transfused 2U of PRBC on admission with adequate response. Patient sent home with iron supplements. Chronic kidney disease remains stable, stayed at baseline Cr around 2.0. Patient did complain of burning chest pain secondary to GERD, improved with protonix and mylanta. Worked up, troponin negative x3, ecg with PAC, echo showing increased RVSP >60mmhg. This was explained to the patient, may be due to sleep apnea. Sleep study as outpatient. P Right thumb hand pain possible secondary to gout flare up, he admits to gout flares in his thumbs in past vs IV irritation. Minutes to complete discharge: 35 Discharge Summary Reason For Visit: CELLULITIS AND ABSCESS OF LE Condition: Improved - Instructions Diet, Activity, Other Instructions: Mr. Parker, you are being treated for your bilateral wound infection. We would like you to continue taking you antibiotics for the next ten days as directed. Please follow up with your wound clinic every Monday. Your visiting nurse will continue to come to your house MWF. If you experience any worsening of your symptoms, high fever, please return to the emergency room. Referrals: Betsy Kim [Primary Care Provider] - Disposition: VNS/HOME HEALTH CARE - Home Medications Comprehensive Discharge Medication List: Ambulatory Orders Gabapentin [Neurontin -] 100 mg PO TID capsule 10/21/14 Allopurinol [Zyloprim -] 100 mg PO BID 11/21/14 Furosemide [Lasix] 0 mg PO DAILY 06/24/16 Clindamycin [Cleocin -] 300 mg PO TID #30 cap 07/01/16 Ferrous Sulfate [Feosol] 325 mg PO BIDWM #60 tab 07/01/16 Levofloxacin [Levaquin -] 250 mg PO DAILY #10 tablet 07/01/16 Problem List - Problems (1) Cellulitis and abscess of leg Code(s): L02.419 - CUTANEOUS ABSCESS OF LIMB, UNSPECIFIED L03.119 - CELLULITIS OF UNSPECIFIED PART OF LIMB (2) Severe anemia Code(s): D64.9 - ANEMIA, UNSPECIFIED (3) Congestive heart failure Code(s): I50.9 - HEART FAILURE, UNSPECIFIED (4) Dilated aortic root Code(s): I77.810 - THORACIC AORTIC ECTASIA (5) Iron deficiency anemia Code(s): D50.9 - IRON DEFICIENCY ANEMIA, UNSPECIFIED (6) Lymphedema Code(s): I89.0 - LYMPHEDEMA, NOT ELSEWHERE CLASSIFIED (7) Morbid obesity Code(s): E66.01 - MORBID (SEVERE) OBESITY DUE TO EXCESS CALORIES (8) Venous stasis ulcers of both lower extremities Code(s): I83.019 - VARICOSE VEINS OF RIGHT LOWER EXTREMITY W ULCER OF UNSP SITE I83.029 - VARICOSE VEINS OF LEFT LOWER EXTREMITY W ULCER OF UNSP SITE This patient is new to me today: No Emergency Visit: Yes ED Registration Date: 06/24/16 Care time: The patient presented to the Emergency Department on the above date and was hospitalized for further evaluation of their emergent condition. Critical Care patient: No - Discharge Referral Referred to [facility] Med P.C.: No
== END 2016-07-01 13:31 | disposition home health service (06) | DRG 603 ==
LOC: JER 11:13 → JERBED 14:54 → J6S 06-25 01:00
PROVIDERS: ADMIT Internal Medicine; ATTEND Internal Medicine
PROC: 30233N1 Transfusion of Nonautologous Red Blood Cells into Peripheral Vein, Percutaneous Approach (ICD-10-PCS; principal; 2016-06-24)
DX: L03.116 Cellulitis of left lower limb (principal); I13.0 Hypertensive heart and chronic kidney disease with heart failure and stage 1 through stage 4 chronic kidney disease, or unspecified chronic kidney disease; I50.32 Chronic diastolic (congestive) heart failure; I89.0 Lymphedema, not elsewhere classified; E66.01 Morbid (severe) obesity due to excess calories; Z68.35 Body mass index [BMI] 35.0-35.9, adult; N18.3 Chronic kidney disease, stage 3 (moderate); M10.9 Gout, unspecified; D63.1 Anemia in chronic kidney disease; E87.5 Hyperkalemia; I87.2 Venous insufficiency (chronic) (peripheral); D50.9 Iron deficiency anemia, unspecified; L03.115 Cellulitis of right lower limb
CPT/HCPCS: 29581-LT; 29581-RT; 36415; 36430; 71010-TC; 71020-TC; 80048; 80053; 82550; 83540; 83550; 83880; 84484; 85025; 85027; 85610; 86850; 86900; 86901; 86922; 87040; 87070; 87186; 87205; 93005; 93010; 93306-TC; 97116-GP; 97161-GP; 99285-25; A6197; G0463-25; P9038; P9058

== ENCOUNTER 2016-08-30 11:38 | Emergency (ER) | payer BC, OTHER ==
[2016-08-30 11:43] VITALS: TEMP 98.1; BMI 34.0
--- NOTE | 2016-08-30 13:52 | PDOC ---
History of Present Illness - General History Source: Patient, Family, Old Records Exam Limitations: No Limitations - History of Present Illness Initial Comments: 08/30/16 15:49 The patient is a 56 year old male presenting with his mother, with a significant past medical history of HTN, CHF and peripheral vascular disease, who presents to the emergency department with pain and swelling to the left knee for the past few days. He denies any recent injuries or falls. He notes that prior to the past few days his knee was normal and he has no prior history of knee swelling. He denies any recent illness. The patient came from wound care due to bilateral wounds in both lower extremities. The patient denies chest pain, shortness of breath, palpitations, headache and dizziness. Denies fever, chills, nausea, vomit, diarrhea and constipation. Allergies: Eggs, citrus and lactose Past surgical history: Appendectomy Social history: No alcohol, tobacco or drug use reported <Néstor Gonzalez - Last Filed: 08/30/16 16:17> <Robson Ramirez - Last Filed: 08/30/16 16:50> - General Chief Complaint: Pain Stated Complaint: WOUND CARE SENT Time Seen by Provider: 08/30/16 13:35 Past History <Néstor Gonzalez - Last Filed: 08/30/16 16:17> - Past Medical History Anemia: No Asthma: No Cancer: No Cardiac Disorders: No CVA: No COPD: No CHF: Yes Dementia: No Diabetes: No GI Disorders: No Disorders: No HTN: Yes Hypercholesterolemia: No Liver Disease: No Suicide Attempt (Hx): No Seizures: No Thyroid Disease: No - Surgical History Abdominal Surgery: No Appendectomy: Yes Cardiac Surgery: No Cholecystectomy: No Lung Surgery: No Neurologic Surgery: No Orthopedic Surgery: No - Psycho/Social/Smoking Cessation Hx Anxiety: No Suicidal Ideation: No Smoking Status: No Smoking History: Never smoked Have you smoked in the past 12 months: No Number of Cigarettes Smoked Daily: 0 Information on smoking cessation initiated: No Hx Alcohol Use: No Drug/Substance Use Hx: No Substance Use Type: None Hx Substance Use Treatment: No <Robson Ramirez - Last Filed: 08/30/16 16:50> - Past Medical History Allergies/Adverse Reactions: Allergies Allergy/AdvReac Type Severity Reaction Status Date / Time Egg Derived Allergy Unknown Verified 08/30/16 14:23 [place] And Derivatives Allergy Verified 08/30/16 14:23 lactose AdvReac Verified 08/30/16 14:23 NKDA Allergy Uncoded 08/30/16 14:23 eggs AdvReac Mild Nausea Uncoded 08/30/16 14:23 Home Medications: Ambulatory Orders Gabapentin [Neurontin -] 100 mg PO TID capsule 10/21/14 Allopurinol [Zyloprim -] 100 mg PO BID 11/21/14 Furosemide [Lasix] 0 mg PO DAILY 06/24/16 Ferrous Sulfate [Feosol] 325 mg PO BIDWM #60 tab 07/01/16 Review of Systems - Review of Systems Able to Perform ROS?: Yes Comments:: 08/30/16 15:50 CONSTITUTIONAL: No reported: Fever, Chills, Diaphoresis, Generalized Weakness, Malaise, Loss of Appetite HEENT: No reported: Rhinorrhea, Nasal Congestion, Throat Pain, Throat Swelling, Difficulty Swallowing, Mouth Swelling, Ear Pain, Eye Pain, Visual Changes CARDIOVASCULAR: No reported: Chest Pain, Syncope, Palpitations, Irregular Heart Rate, Lightheadedness, Peripheral Edema RESPIRATORY: No reported: Cough, Shortness of Breath, SOB with Exertion, Orthopnea, Wheezing , Stridor, Hemoptysis GASTROINTESTINAL: No reported: Abdominal pain, Abdominal Distension, Nausea, Vomiting, Diarrhea, Constipation, Melena, Hematochezia GENITOURINARY: No reported: Dysuria, Frequency, Urgency, Hesitancy, Flank Pain, Genital Pain MUSCULOSKELETAL: No reported: Myalgia, Arthralgia, Joint Swelling, Back pain, Neck Pain EXTREMITIES: Reported: Left knee pain and swelling. SKIN: No reported: Rash, Itching, Pallor HEMEATOLOGIC/IMMUNOLOGIC: No reported: Easy Bleeding, Easy Bruising, Lymphadenopathy, Frequent infections ENDOCRINE: No reported: Unexplained Weight Gain, Unexplained Weight Loss, Heat Intolerance , Cold Intolerance NEUROLOGIC: No reported: Headache, Focal Weakness, Paresthesias, Vertigo, Lightheadedness, Unsteady Gait, Seizure, Mental Status Changes, Incontinence PSYCHIATRIC: No reported: Anxiety, Depression <Néstor Gonzalez - Last Filed: 08/30/16 16:17> *Physical Exam - Vital Signs Last Vital Signs Temp Pulse Resp BP Pulse Ox 98.1 F 83 18 134/80 97 08/30/16 11:39 08/30/16 11:39 08/30/16 11:39 08/30/16 11:39 08/30/16 11:39 - Physical Exam Comments: 08/30/16 15:50 GENERAL: The patient is awake, alert, and fully oriented, Nontoxic - in no acute distress, obese, HEAD: Normocephalic, atraumatic. EYES: extraocular movements intact, sclera anicteric, conjunctiva clear. ENT: Normal voice, Moist mucous membranes. NECK: Normal range of motion, supple LUNGS: Breath sounds equal, clear to auscultation bilaterally. No wheezes, no rhonchi, no rales. HEART: Regular rate and rhythm, without murmur, rub or gallop. ABDOMEN: Soft, nontender, normoactive bowel sounds. No guarding, no rebound.No CVA tenderness EXTREMITIES: chronic skin changes c/w peripheral vascular disease, multiple wounds on LE, w/o erythema/warmth, +large suprapatellar effusion on LLE without any warmth, no significant limitation of ROM of LLE, no erythema noted. NEUROLOGICAL: No facial assymetry, Normal speech, moving all 4extremities spontaneously and symmetrically PSYCH: Normal mood, normal affect. SKIN: Warm, Dry, normal turgor, <Néstor Gonzalez - Last Filed: 08/30/16 16:17> - Vital Signs Last Vital Signs Temp Pulse Resp BP Pulse Ox 98.1 F 83 18 134/80 97 08/30/16 11:39 08/30/16 11:39 08/30/16 11:39 08/30/16 11:39 08/30/16 11:39 <Robson Ramirez - Last Filed: 08/30/16 16:50> ED Treatment Course - RADIOLOGY Radiograph Interpretation: 08/30/16 16:19 Left lower extremity doppler Reviewed by: Impression: There is no evidence of deep venous thrombosis in the left lower extremity. Large left upper medial thigh lymph node. - Medications Given in the ED: ED Medications Discontinued Medications Generic Name Dose Route Start Last Admin Trade Name Freq PRN Reason Stop Dose Admin Oxycodone/Acetaminophen 1 combo 08/30/16 14:12 08/30/16 14:30 Percocet 5/325 - PO 08/30/16 14:13 1 combo ONCE ONE Administration <Néstor Gonzalez - Last Filed: 08/30/16 16:17> Medical Decision Making - Medical Decision Making 08/30/16 14:19 56y M hx of PVD with chronic wounds being managed by wound care presents for increased leg swelling, no warmth or signs of infected joint, +effusion will r/o dvt, xray to ro fx or other acute process will give percocet for pain 08/30/16 16:41 US negative Xray shows severe DJD will have pt fu with pmd and ortho supportiave mangaement at home I discussed the physical exam findings, ancillary test results and final diagnoses with the patient. I answered all of the patient's questions. The patient was satisfied with the care received and felt comfortable with the discharge plan and treatment plan. The patient will call their primary care physician within 24 hours to arrange follow-up and will return to the Emergency Department with any new, persistent or worsening symptoms. A portion of this note was documented by scribe services under my direction. I have reviewed the details of the note, within reason, and agree with the documentation with the following case summary and management plan written by me 08/30/16 16:49 <Robson Ramirez - Last Filed: 08/30/16 16:50> *DC/Admit/Observation/Transfer - Attestations Scribe Attestion: 08/30/16 15:50 Documentation prepared by Néstor Gonzalez, acting as medical collector for Robson Ramirez MD <Néstor Gonzalez - Last Filed: 08/30/16 16:17> - Discharge Dispostion Admit: No <Robson Ramirez - Last Filed: 08/30/16 16:50> Diagnosis at time of Disposition: Degenerative joint disease of knee, left Qualifiers: Osteoarthritis type: unspecified Qualified Code(s): M17.12 - Unilateral primary osteoarthritis, left knee - Discharge Dispostion Disposition: HOME Condition at time of disposition: Stable - Referrals Referrals: Betsy Kim [Primary Care Provider] - Chavez Vigil MD [Staff Physician] - - Patient Instructions Printed Discharge Instructions: DI for Osteoarthritis Additional Instructions: Return to the emergency department immediately with ANY new, persistent or worsening symptoms. You have severe degenerative joint disease in your knee. USe tylenol as needed for pain. Keep your leg elevated to minimize swelling. You MUST call and follow up with your doctor in 4-5 days for further evaluation of your symptoms. Results were discussed with you. Please make sure your doctor reviews the results of your emergency evaluation. Print Language: LIBYAN
[2016-08-30] MEDS ORDERED: OXYCODONE/APAP 5/325MG COMBO TABLET PO ONE (14:12)
[2016-08-30] MEDS ORDERED: OXYCODONE/APAP 5/325MG COMBO TABLET ONE (14:24)
[2016-08-30 17:23] VITALS: BP 139/74; PULSE 70
== END 2016-08-30 17:23 | disposition home or self-care (01) ==
LOC: JER 11:38
DX: M17.12 Unilateral primary osteoarthritis, left knee (principal); M25.462 Effusion, left knee; I10 Essential (primary) hypertension; I50.9 Heart failure, unspecified; I73.89 Other specified peripheral vascular diseases
CPT/HCPCS: 73560-TC-LT; 93971-TC; 99283-25; G0463-25

== ENCOUNTER 2017-09-15 10:24 | Inpatient (IN) | payer BC, OTHER ==
--- NOTE | 2017-09-15 11:21 | PDOC ---
History of Present Illness - General History Source: Patient Exam Limitations: No Limitations - History of Present Illness Initial Comments: 09/15/17 11:16 57 yr male sent from wound care , to be admitted for IVAB for wound infection of bilateral lower legs. Pt has history of CRI, HTN, bilateral venous stasis ulcers, he has been followed by wound care at this hospital for a few years pt states. Pt denies history of DM. Pt with no complaints of pain at this time. 09/15/17 11:58 09/15/17 13:23 Timing/Duration: reports: constant Severity: Yes: moderate Location: reports: extremities Associated Symptoms: reports: edema <Ayesha Kline - Last Filed: 09/15/17 17:43> <Robson Ramirez - Last Filed: 09/19/17 12:57> - General Chief Complaint: Redness To Affected Area Stated Complaint: WOUND CARE PAIN Time Seen by Provider: 09/15/17 11:05 Past History - Past Medical History Anemia: No Asthma: No Cancer: No Cardiac Disorders: No CVA: No COPD: No CHF: Yes DVT: No Dementia: No Diabetes: No GI Disorders: No Disorders: No HTN: Yes Hypercholesterolemia: No Liver Disease: No Seizures: No Thyroid Disease: No Other medical history: POOR CIRCULATION, GOUT - Surgical History Abdominal Surgery: No Appendectomy: Yes Cardiac Surgery: No Cholecystectomy: No Lung Surgery: No Neurologic Surgery: No Orthopedic Surgery: No - Suicide/Smoking/Psychosocial Hx Smoking Status: No Smoking History: Never smoked Have you smoked in the past 12 months: No Number of Cigarettes Smoked Daily: 0 Information on smoking cessation initiated: No Hx Alcohol Use: No Drug/Substance Use Hx: No Substance Use Type: None Hx Substance Use Treatment: No <Ayesha Kline - Last Filed: 09/15/17 17:43> <Robson Ramirez - Last Filed: 09/19/17 12:57> - Past Medical History Allergies/Adverse Reactions: Allergies Allergy/AdvReac Type Severity Reaction Status Date / Time Egg Derived Allergy Unknown Verified 09/15/17 10:40 [place] And Derivatives Allergy Verified 09/15/17 10:40 lactose AdvReac Verified 09/15/17 10:40 NKDA Allergy Uncoded 09/15/17 10:40 Home Medications: Ambulatory Orders Allopurinol [Zyloprim -] 100 mg PO BID 08/07/15 Furosemide [Lasix] 40 mg PO DAILY 06/24/16 Folic Acid 1 mg PO DAILY 09/15/17 Prednisone 5 mg PO DAILY 09/15/17 Review of Systems - Review of Systems Able to Perform ROS?: Yes Is the patient limited [place] proficient: No Constitutional: No: Symptoms Reported HEENTM: No: Symptoms Reported, Dental Problems Respiratory: No: Symptoms reported Cardiac (ROS): No: Symptoms Reported ABD/GI: No: Symptoms Reported : No: Symptoms Reported Musculoskeletal: No: Symptoms Reported Integumentary: Yes: Symptoms Reported <Ayesha Kline - Last Filed: 09/15/17 17:43> *Physical Exam - Vital Signs Last Vital Signs Temp Pulse Resp BP Pulse Ox 97.5 F L 72 18 149/115 100 09/15/17 10:42 09/15/17 10:42 09/15/17 10:42 09/15/17 10:42 09/15/17 10:42 - Physical Exam General Appearance: Yes: Nourished, Obese HEENT: positive: EOMI, CASSIE Neck: positive: Supple. negative: Tender Respiratory/Chest: positive: Lungs Clear, Normal Breath Sounds Cardiovascular: positive: Regular Rhythm, Regular Rate Gastrointestinal/Abdominal: positive: Soft, Distended Rectal Exam: positive: normal rectal tone Musculoskeletal: positive: Normal Inspection Extremity: positive: Normal Capillary Refill, Normal Inspection, Normal Range of Motion, Other (legs are wrapped with dressings from wound care, edema noted bilaterally ) Integumentary: positive: Normal Color, Dry, Warm Neurologic: positive: Fully Oriented, Alert, Normal Mood/Affect, Normal Response , Motor Strength 5/5 <Ayesha Kline - Last Filed: 09/15/17 17:43> - Vital Signs Last Vital Signs Temp Pulse Resp BP Pulse Ox 97.5 F L 77 18 115/83 95 09/15/17 10:42 09/15/17 14:42 09/15/17 14:42 09/15/17 14:42 09/15/17 14:42 <Rosbon Ramirez - Last Filed: 09/19/17 12:57> Heart Score/ECG Review - ECG Impressions Comment:: 09/15/17 15:47 Twelve-lead EKG was performed and reviewed by me. There is normal sinus rhythm with a normal rate. rate of 70 Left axis deviation Incomplete right bundle-branch block <Robson Ramirez - Last Filed: 09/19/17 12:57> ED Treatment Course - LABORATORY CBC & Chemistry Diagram: 09/15/17 12:00 09/15/17 12:00 - Consult/PCP Time Called: 13:20 Case discussed with consulting physician: Prabhjot Allen <Ayesha Kline - Last Filed: 09/15/17 17:43> - LABORATORY CBC & Chemistry Diagram: 09/19/17 06:00 09/19/17 06:00 - ADDITIONAL ORDERS Additional order review: Laboratory Results 09/15/17 09/15/17 12:15 12:00 Sodium 141 Potassium 5.6 H Chloride 112 H Carbon Dioxide 21 D Anion Gap 8 BUN 46 H D Creatinine 2.1 H Creat Clearance w eGFR 32.49 Random Glucose 82 Calcium 8.1 L Total Bilirubin 0.4 D AST 18 D ALT 14 Alkaline Phosphatase 112 Total Protein 7.6 Albumin 2.4 L Stool Occult Blood Negative 09/15/17 12:00 RBC 3.19 L MCV 79.7 L MCHC 31.7 L RDW 20.4 H MPV 9.6 Neutrophils % 73.8 Lymphocytes % 11.5 Monocytes % 10.0 Eosinophils % 3.8 Basophils % 0.9 - Medications Given in the ED: ED Medications Discontinued Medications Generic Name Dose Route Start Last Admin Trade Name Freq PRN Reason Stop Dose Admin Furosemide 40 mg 09/15/17 13:31 09/15/17 13:43 Lasix Injection - IVPUSH 09/15/17 13:32 40 mg ONCE ONE Administration Piperacillin Sod/Tazobactam 50 mls @ 100 mls/hr 09/15/17 11:32 09/15/17 12:27 Sod 3.375 gm/ Dextrose IVPB 09/15/17 12:01 100 mls/hr ONCE ONE Administration Protocol Sodium Polystyrene Sulfonate 15 gm 09/15/17 14:44 09/15/17 14:50 Kayexalate - PO 09/15/17 14:45 15 gm ONCE ONE Administration <Robson Ramirez - Last Filed: 09/19/17 12:57> Medical Decision Making - Medical Decision Making 09/15/17 11:23 cc: infected wounds admit for IVAB, afebrile. sent from wound care for admission, instructed to not remove the dressings as they have medication and where just redressed this am in wound care. pt denies fever denies chills no SOB no chest pain will admit to hospitalist service. 09/15/17 11:34 09/15/17 12:54 spoke to PMD's office last CBC was on August 14, 2017 Hgb 9.1 HCT 30.7 09/15/17 13:34 case discussed with admitting NERVE SPECIALIST Therese Warren admission accepted <Ayesha Kline - Last Filed: 09/15/17 17:43> - Medical Decision Making The patient was seen and evaluated in conjunction with MADAN Kline under my direct supervision, ancillary studies were reviewed. II agree with the plan as outlined by MADAN Kline. <Robson Ramirez - Last Filed: 09/19/17 12:57> *DC/Admit/Observation/Transfer - Discharge Dispostion Decision to Admit order: Yes <Ayesha Kline - Last Filed: 09/15/17 17:43> <Robson Ramirez - Last Filed: 09/19/17 12:57> Diagnosis at time of Disposition: Bilateral lower leg cellulitis - Discharge Dispostion Condition at time of disposition: Fair
[2017-09-15] MEDS ORDERED: PIPERACILLIN/TAZOB 3.375 GM 3.375 GM in DEXTROSE 5%-WATER - 50 ML IVPB ONE (11:32)
[2017-09-15] MEDS ORDERED: PIPERACILLIN/TAZOB 3.375 GM 3.375 GM/50 ML BAG IVPB ONE (11:59)
[2017-09-15 12:15] LABS: BASO % 0.9 % (0-2.0); EOS % 3.8 % (0-4.5); HEMATOCRIT 25.4 % (35.4-49); HEMOGLOBIN 8.1 GM/dL (11.7-16.9); LYMPH % 11.5 % (8-40); MCH 25.3 pg (25.7-33.7); MCHC 31.7 g/dl (32.0-35.9); MEAN CELL VOLUME 79.7 fl (80-96); MEAN PLT VOLUME 9.6 fl (7.5-11.1); NEUT % 73.8 % (42.8-82.8); PLATELET COUNT 249 K/MM3 (134-434); RBC 3.19 M/mm3 (4.00-5.60); RDW 20.4 % (11.9-15.9)
[2017-09-15 12:47] LABS: ALBUMIN 2.4 g/dl (3.4-5.0); ANION GAP 8 (8-16); BLOOD UREA NITROGEN 46 mg/dL (7-18); CALCIUM 8.1 mg/dL (8.5-10.1); CHLORIDE 112 mmol/L (98-107); CO2 21 mmol/L (21-32); CREATININE 2.1 mg/dL (0.7-1.3); GLUCOSE,RANDOM 82 mg/dL (74-106); POTASSIUM 5.6 mmol/L (3.5-5.1); SGOT/AST 18 U/L (15-37); SGPT/ALT 14 U/L (12-78); SODIUM 141 mmol/L (136-145)
[2017-09-15 12:49] LABS: ALK PHOS 112 U/L (45-117); BILIRUBIN,TOTAL 0.4 mg/dL (0.2-1.0); TOT PROT 7.6 g/dl (6.4-8.2)
[2017-09-15] MEDS ORDERED: FUROSEMIDE 40 MG/4 ML INJECTABLE VIAL IVPUSH ONE (13:31)
[2017-09-15] MEDS ORDERED: FUROSEMIDE 40 MG/4 ML INJECTABLE VIAL ONE (13:40)
[2017-09-15] MEDS ORDERED: SODIUM POLYSTYRENE SULFONATE 15 GM/60 ML BOTTLE PO ONE (14:44)
--- NOTE | 2017-09-15 16:34 | CON.ID ---
Consult Consult Specialty:: infectious diseases Reason for Consultation:: bilateral non healing ulcers of the lef with cellulitis of the legs - History of Present Illness Chief Complaint: pain of the legs History of Present Illness: 57 year old with PMHx of HTN, gout, CKD, HTN, chronic venous stasis ulcers, admitted for bilateral cellulitis. Patient was following in the wound care clinic and has been wound care done.In the last couple of days patient started having sever pain and started having difficulty ambulating Patient came to the wound care clinic and was seen by the physician and wound care was done and patient was send for admission because of the condition at the moment the legs are wrapped as per instructions The patient denies any fever, chills, but is scared about his legs - History Source History Provided By: Patient Limitations to Obtaining History: No Limitations - Past Medical History Cardio/Vascular: Yes: CHF, HTN, Pulmonary Hypertension, Other Renal/: Yes: Renal Inusuff Musculoskeletal: Yes: Other Additional Medical History: chronic lymphedema sees Dr Eric at the wound clinic Admitted for increasing LE EDEMA - Alcohol/Substance Use Hx Alcohol Use: No History of Substance Use: reports: None - Smoking History Smoking history: Never smoked Have you smoked in the past 12 months: No Aproximately how many cigarettes per day: 0 - Social History Usual Living Arrangement: With Parent History of Recent Travel: No Home Medications - Allergies Allergies/Adverse Reactions: Allergies Allergy/AdvReac Type Severity Reaction Status Date / Time Egg Derived Allergy Unknown Verified 09/15/17 10:40 Addison And Derivatives Allergy Verified 09/15/17 10:40 lactose AdvReac Verified 09/15/17 10:40 NKDA Allergy Uncoded 09/15/17 10:40 - Home Medications Home Medications: Ambulatory Orders Allopurinol [Zyloprim -] 100 mg PO BID 11/21/14 Furosemide [Lasix] 40 mg PO DAILY 06/24/16 Folic Acid 1 mg PO DAILY 09/15/17 Prednisone 5 mg PO DAILY 09/15/17 Review of Systems - Review of Systems Constitutional: reports: No Symptoms Eyes: reports: No Symptoms HENT: reports: No Symptoms Neck: reports: No Symptoms Cardiovascular: reports: No Symptoms Respiratory: reports: No Symptoms Gastrointestinal: reports: No Symptoms Genitourinary: reports: No Symptoms Musculoskeletal: reports: Muscle Pain, Other Integumentary: reports: Change in Color, Erythema, Other Neurological: reports: No Symptoms Endocrine: reports: No Symptoms Hematology/Lymphatic: reports: No Symptoms Psychiatric: reports: No Symptoms Physical Exam Vital Signs: Vital Signs Temperature 97.5 F L 09/15/17 10:42 Pulse Rate 77 09/15/17 14:42 Respiratory Rate 18 09/15/17 14:42 Blood Pressure 115/83 09/15/17 14:42 O2 Sat by Pulse Oximetry (%) 95 09/15/17 14:42 Constitutional: Yes: Well Nourished, Calm, Mild Distress Eyes: Yes: Conjunctiva Clear HENT: Yes: Atraumatic, Normocephalic Neck: Yes: Supple, Trachea Midline Cardiovascular: Yes: Regular Rate and Rhythm Respiratory: Yes: Regular, CTA Bilaterally Gastrointestinal: Yes: Normal Bowel Sounds, Soft Musculoskeletal: Yes: Other Extremities: Yes: Other (currently the wounds wrapped) Wound/Incision: Yes: Dressing Dry and Intact Neurological: Yes: Alert, Oriented Psychiatric: Yes: Alert, Oriented Labs: CBC, BMP 09/15/17 12:00 09/15/17 12:00 Imaging - Results Chest X-ray: Report Reviewed, Image Reviewed Assessment/Plan 57 year old with PMHx of HTN, gout, CKD, HTN, chronic venous stasis ulcers, B/l lower extremity cellulitis 2) Hyperkalemia 3) HTN 4) Chronic systolic and diastolic heart failure 5) Gout 6) CKD 7) Anemia of chronic disease plan will start patient on clinda and zosyn monitor electrolytes dressing as per wound care rest as per the team
--- NOTE | 2017-09-15 17:01 | HP ---
CHIEF COMPLAINT: cellulitis PCP: HISTORY OF PRESENT ILLNESS: This is a 57 year old with PMHx of HTN, gout, CKD, HTN, chronic venous stasis ulcers, who was sent over by Dr. Eric from the wound care clinic for cellulitis. the patient reports he has been seeing Dr. Eric in the clinic for years and that over the past 2 days he has experienced worsening pain in his feet. He states the pain became so bad that he is now having a difficult time ambulating. The patient saw Dr. Eric today who sent him to the ED for cellulitis and told the ED provider not to unwrap the patient's dressings. The patient denies any fever, chills, headache, chest pain, dizziness, headache, syncope, urinary symptoms. ER course was notable for: (1) Temp 97.5, pulse 72, BP 149/115, resp 18, O2 100% on RA (2) Hgb 8.1, Hct 25.4 (3) K 5.6, Cr 2.1 Recent Travel: denies PAST MEDICAL HISTORY: as above PAST SURGICAL HISTORY: denies Social History: Smoking: denies Alcohol: denies Drugs: denies Family History: Allergies Egg Derived Allergy (Unknown, Verified 09/15/17 10:40) Bernard And Derivatives Allergy (Verified 09/15/17 10:40) lactose Adverse Reaction (Verified 09/15/17 10:40) NKDA Allergy (Uncoded 09/15/17 10:40) HOME MEDICATIONS: Home Medications Medication Instructions Recorded Allopurinol [Zyloprim -] 100 mg PO BID 11/21/14 Furosemide [Lasix] 40 mg PO DAILY 06/24/16 Folic Acid 1 mg PO DAILY 09/15/17 Prednisone 5 mg PO DAILY 09/15/17 REVIEW OF SYSTEMS CONSTITUTIONAL: Absent: fever, chills, diaphoresis, generalized weakness, malaise, loss of appetite, weight change HEENT: Absent: rhinorrhea, nasal congestion, throat pain, throat swelling, difficulty swallowing, mouth swelling, ear pain, eye pain, visual changes CARDIOVASCULAR: Absent: chest pain, syncope, palpitations, irregular heart rate, lightheadedness , peripheral edema RESPIRATORY: Absent: cough, shortness of breath, dyspnea with exertion, orthopnea, wheezing, stridor, hemoptysis GASTROINTESTINAL: Absent: abdominal pain, abdominal distension, nausea, vomiting, diarrhea, constipation, melena, hematochezia GENITOURINARY: Absent: dysuria, frequency, urgency, hesitancy, hematuria, flank pain, genital pain MUSCULOSKELETAL: Absent: myalgia, arthralgia, joint swelling, back pain, neck pain SKIN: B/l lower extremity wounds, sent in by vascular surgery for cellulitis. Patient reports increase in b/l foot pain x2 days. HEMATOLOGIC/IMMUNOLOGIC: Absent: easy bleeding, easy bruising, lymphadenopathy ENDOCRINE: Absent: unexplained weight gain, unexplained weight loss, heat intolerance, cold intolerance NEUROLOGIC: Absent: headache, focal weakness or paresthesias, dizziness, unsteady gait, seizure, mental status changes, bladder or bowel incontinence PSYCHIATRIC: Absent: anxiety, depression, suicidal or homicidal ideation, hallucinations. PHYSICAL EXAMINATION Vital Signs - 24 hr 09/15/17 09/15/17 10:42 14:42 Temperature 97.5 F L Pulse Rate 72 Pulse Rate [ 77 Apical] Respiratory 18 18 Rate Blood Pressure 149/115 Blood Pressure 115/83 [Left Arm] O2 Sat by Pulse 100 95 Oximetry (%) GENERAL: Awake, alert, and fully oriented, in no acute distress. HEAD: Normal with no signs of trauma. LUNGS: Breath sounds equal, clear to auscultation bilaterally. No wheezes, and no crackles. No accessory muscle use. HEART: Regular rate and rhythm, normal S1 and S2 ABDOMEN: Soft, nontender, not distended, normoactive bowel sounds, no guarding, no rebound, no masses. No hepatomegaly or splenomegaly. MUSCULOSKELETAL: Normal range of motion at all joints. No bony deformities or tenderness. No CVA tenderness. UPPER EXTREMITIES: 2+ pulses, warm, well-perfused. No cyanosis. No clubbing. No peripheral edema. LOWER EXTREMITIES: B/l lower extremity dressings in place (unable to remove per Dr. Eric) PSYCHIATRIC: Cooperative. Good eye contact. Appropriate mood and affect. SKIN: Warm, dry, normal turgor, no rashes or lesions noted, normal capillary refill. Laboratory Results - last 24 hr 09/15/17 09/15/17 09/15/17 12:00 12:00 12:15 WBC 6.0 RBC 3.19 L Hgb 8.1 L Hct 25.4 L MCV 79.7 L MCH 25.3 L MCHC 31.7 L RDW 20.4 H Plt Count 249 D MPV 9.6 Neutrophils % 73.8 Lymphocytes % 11.5 Monocytes % 10.0 Eosinophils % 3.8 Basophils % 0.9 Nucleated RBC % 0 Sodium 141 Potassium 5.6 H Chloride 112 H Carbon Dioxide 21 D Anion Gap 8 BUN 46 H D Creatinine 2.1 H Creat Clearance w eGFR 32.49 Random Glucose 82 Calcium 8.1 L Total Bilirubin 0.4 D AST 18 D ALT 14 Alkaline Phosphatase 112 Total Protein 7.6 Albumin 2.4 L Stool Occult Blood Negative Assessment: This is a 57 year old with PMHx of HTN, gout, CKD, HTN, chronic venous stasis ulcers, who was sent over by Dr. Eric from the wound care clinic for cellulitis. Plan: 1) B/l lower extremity cellulitis - Per Dr. Eric, do not remove dressing, unable to visualize wounds - Continue Zosyn (09/15- ) - Continue Clindamycin (09/15- ) - F/u blood cultures - Appreciate ID consult - F/u vascular consult 2) Hyperkalemia - Likely 2/2 CKD - Given Kayexelate today - Monitor level - If worsening, consider nephrology consult 3) HTN - No on home medications, continue to monitor 4) Chronic systolic and diastolic heart failure - Continue Lasix 5) Gout - Continue allopurinol 6) CKD - Cr ~ baseline - Continue to monitor 7) Anemia of chronic disease - H/H ~ baseline - Continue to monitor 8) F/E/N: - Monitor electrolytes - Renal diet 9) Prophylaxis: - Heparin 5,000u sq tid 10) Dispo: - Requires continued inpatient care CODE STATUS: FULL CODE Visit type - Emergency Visit Emergency Visit: Yes ED Registration Date: 09/15/17 Care time: The patient presented to the Emergency Department on the above date and was hospitalized for further evaluation of their emergent condition. - New Patient This patient is new to me today: Yes Date on this admission: 09/15/17 - Critical Care Critical Care patient: No Hospitalist Screening - Colonoscopy Questionnaire Colonoscopy Questionnaire: Colonoscopy Questionnaire - Patient: 50 - 75 years old and never had a screening colonoscopy: Unknown History of colon or rectal polyps, or CA: Unknown History of IBD, Crohn's disease or UC: Unknown History of abdominal radiation therapy as a child: Unknown - Relative: 1 with colon or rectal CA, or polyps at age 60 or younger: Unknown Colon or rectal CA diagnosed at age 45 or younger: Unknown Multiple relatives with colon or rectal CA: Unknown - Outcome: Screening Result: Negative Screen
[2017-09-15] MEDS ORDERED: PIPERACILLIN/TAZOBACTAM 2.25 GM VIAL IVPB ONE (17:28)
[2017-09-15] MEDS ORDERED: DEXTROSE 5%-WATER - 50 ML IVPB ONE (17:28)
[2017-09-15] MEDS: PIPERACILLIN/TAZOB 2.25 GM 2.25 GM in DEXTROSE 5%-WATER - 50 ML IVPB SCH (17:39)
[2017-09-15] MEDS: CLINDAMYCIN 300 MG PREMIX IVPB 300 MG/50 ML BAG IVPB SCH ×2 (20:00→22:07)
[2017-09-15] MEDS: HEPARIN NA (PORCINE) 5,000 UNITS/ML 1ML VIAL SQ SCH (22:07)
[2017-09-15] MEDS: ALLOPURINOL 100 MG TABLET (FP) PO SCH (22:07)
[2017-09-16] MEDS ORDERED: PIPERACILLIN/TAZOBACTAM 2.25 GM VIAL IVPB ONE ×3 (01:02→17:00)
[2017-09-16] MEDS ORDERED: DEXTROSE 5%-WATER - 50 ML IVPB ONE ×3 (01:02→17:01)
[2017-09-16] MEDS: PIPERACILLIN/TAZOB 2.25 GM 2.25 GM in DEXTROSE 5%-WATER - 50 ML IVPB SCH ×3 (01:06→17:15)
[2017-09-16] MEDS: CLINDAMYCIN 300 MG PREMIX IVPB 300 MG/50 ML BAG IVPB SCH ×4 (02:58→21:34)
[2017-09-16] MEDS ORDERED: ACETAMINOPHEN 650 MG/20.3 ML ORAL SOLUTION (CUPS) PO ONE (04:09)
[2017-09-16] MEDS: HEPARIN NA (PORCINE) 5,000 UNITS/ML 1ML VIAL SQ SCH ×3 (05:33→21:34)
[2017-09-16 07:34] LABS: HEMATOCRIT 24.4 % (35.4-49); HEMOGLOBIN 7.8 GM/dL (11.7-16.9); MCH 25.5 pg (25.7-33.7); MEAN CELL VOLUME 79.8 fl (80-96); MEAN PLT VOLUME 9.1 fl (7.5-11.1); PLATELET COUNT 215 K/MM3 (134-434); RBC 3.06 M/mm3 (4.00-5.60); RDW 20.2 % (11.9-15.9); WHITE BLOOD COUNT 5.7 K/mm3 (4.0-10.0)
[2017-09-16 07:59] LABS: CHLORIDE 113 mmol/L (98-107); POTASSIUM 5.3 mmol/L (3.5-5.1); SODIUM 143 mmol/L (136-145)
[2017-09-16 08:55] LABS: ALK PHOS 95 U/L (45-117); ANION GAP 7 (8-16); BILIRUBIN,TOTAL 0.4 mg/dL (0.2-1.0); BLOOD UREA NITROGEN 45 mg/dL (7-18); CO2 23 mmol/L (21-32); CREATININE 2.2 mg/dL (0.7-1.3); GLUCOSE,RANDOM 93 mg/dL (74-106); SGOT/AST 13 U/L (15-37); SGPT/ALT 11 U/L (12-78); TOT PROT 6.8 g/dl (6.4-8.2)
[2017-09-16] MEDS: ALLOPURINOL 100 MG TABLET (FP) PO SCH ×2 (09:10→21:35)
[2017-09-16] MEDS: FOLIC ACID 1 MG TABLET (FP) PO SCH (09:10)
[2017-09-16] MEDS: FUROSEMIDE 40 MG TABLET (FP) PO SCH (09:10)
[2017-09-16] MEDS: predniSONE 5 MG TABLET (UD) PO SCH (09:10)
--- NOTE | 2017-09-16 09:39 | PN ---
Progress Note (short form) - Note Progress Note: no complaints. denies CP, SOB, fever, chills, N/v/C/D. denies melena or BRBPR, hematuria, hemoptysis no BM since yesterday. Current Medications Generic Name Dose Route Start Last Admin Trade Name Aliyah PRN Reason Stop Dose Admin Allopurinol 100 mg 09/15/17 22:00 09/16/17 09:10 Zyloprim - PO 100 mg BID MICHELLE Administration Folic Acid 1 mg 09/16/17 10:00 09/16/17 09:10 Folic Acid - PO 1 mg DAILY MICHELLE Administration Furosemide 40 mg 09/16/17 10:00 09/16/17 09:10 Lasix - PO 40 mg DAILY MICHELLE Administration Heparin Sodium (Porcine) 5,000 unit 09/15/17 22:00 09/16/17 05:33 Heparin - SQ 5,000 unit TID MICHELLE Administration Clindamycin Phosphate 300 mg in 50 mls @ 100 mls/hr 09/15/17 16:45 09/16/17 02:58 Cleocin 300 Mg Premix Ivpb IVPB 100 mls/hr Q6H-IV MICHELLE Administration Protocol Piperacillin Sod/Tazobactam 50 mls @ 100 mls/hr 09/15/17 18:00 09/16/17 09:11 Sod 2.25 gm/ Dextrose IVPB 100 mls/hr Q8H-IV MICHELLE Administration Protocol Prednisone 5 mg 09/16/17 10:00 09/16/17 09:10 Deltasone - PO 5 mg DAILY MICHELLE Administration Last Vital Signs Temp Pulse Resp BP Pulse Ox 98.2 F 78 18 129/57 98 09/16/17 05:00 09/16/17 05:00 09/16/17 05:00 09/16/17 05:00 09/15/17 21:00 General NAD CV S1 s2 RRR no murmrur/rub/gallop Lungs CTA B/L no wheezing/rales/rhonchi Abdomen soft NT/ND obese Extremities chronic venous changes. wrapped in bandages. refused removal of wraps CBCD WBC 5.7 K/mm3 (4.0-10.0) 09/16/17 05:50 RBC 3.06 M/mm3 (4.00-5.60) L 09/16/17 05:50 Hgb 7.8 GM/dL (11.7-16.9) L 09/16/17 05:50 Hct 24.4 % (35.4-49) L 09/16/17 05:50 MCV 79.8 fl (80-96) L 09/16/17 05:50 MCHC 32.0 g/dl (32.0-35.9) 09/16/17 05:50 RDW 20.2 % (11.9-15.9) H 09/16/17 05:50 Plt Count 215 K/MM3 (134-434) 09/16/17 05:50 MPV 9.1 fl (7.5-11.1) 09/16/17 05:50 CMP Sodium 143 mmol/L (136-145) 09/16/17 05:50 Potassium 5.3 mmol/L (3.5-5.1) H 09/16/17 05:50 Chloride 113 mmol/L (98-107) H 09/16/17 05:50 Carbon Dioxide 23 mmol/L (21-32) 09/16/17 05:50 Anion Gap 7 (8-16) L 09/16/17 05:50 BUN 45 mg/dL (7-18) H 09/16/17 05:50 Creatinine 2.2 mg/dL (0.7-1.3) H 09/16/17 05:50 Creat Clearance w eGFR 30.79 (>60) 09/16/17 05:50 Calcium 8.0 mg/dL (8.5-10.1) L 09/16/17 05:50 Total Bilirubin 0.4 mg/dL (0.2-1.0) 09/16/17 05:50 AST 13 U/L (15-37) L D 09/16/17 05:50 ALT 11 U/L (12-78) L D 09/16/17 05:50 Alkaline Phosphatase 95 U/L (45-117) 09/16/17 05:50 Total Protein 6.8 g/dl (6.4-8.2) 09/16/17 05:50 Albumin 2.0 g/dl (3.4-5.0) L 09/16/17 05:50 A/P 57yo M with PMH HTN, gout, CKD, chronic venous statis presents to the ER from the wound center for B/L cellulitis 1. B/L cellulitis-afebrile. will not allow me to examine legs. cont zosyn/ Clinda day 2. Vascular surgery and ID on board. f/u Cx 2. Hyperkalemia- persists liekly due to CKD. s/p kayexylate yesterday. will give additional dose today. adjust to renal diet 3. Normocytic anemia- no signs of bleeding. check iron studies as he was iron def in the past. txn as needed 4. CKD- at baseline 5. gout- on chronic prednisone. no current flares. as per pt his pmd told him to take daily. recommend to speak with PMD regarding this. will cont for now 6. HTN- controlled. on lasix 7. DVT ppx-hep sq Visit type - Emergency Visit Emergency Visit: Yes ED Registration Date: 09/15/17 Care time: The patient presented to the Emergency Department on the above date and was hospitalized for further evaluation of their emergent condition. - New Patient This patient is new to me today: Yes Date on this admission: 09/16/17 - Critical Care Critical Care patient: No - Discharge Referral Referred to [facility] Med P.C.: No
[2017-09-16] MEDS ORDERED: SODIUM POLYSTYRENE SULFONATE 15 GM/60 ML BOTTLE PO ONE (10:30)
--- NOTE | 2017-09-16 11:53 | PN ---
Progress Note, Physician History of Present Illness: Pt seen. States he has slightly less pain in LEs than yesterday. Remains afebrile/without chills. No other specific complaints. - Current Medication List Current Medications: Active Medications Allopurinol (Zyloprim -) 100 mg PO BID [facility] Last Admin: 09/16/17 09:10 Dose: 100 mg Folic Acid (Folic Acid -) 1 mg PO DAILY MICHELLE Last Admin: 09/16/17 09:10 Dose: 1 mg Furosemide (Lasix -) 40 mg PO DAILY MICHELLE Last Admin: 09/16/17 09:10 Dose: 40 mg Heparin Sodium (Porcine) (Heparin -) 5,000 unit SQ TID [facility] Last Admin: 09/16/17 05:33 Dose: 5,000 unit Clindamycin Phosphate (Cleocin 300 Mg Premix Ivpb) 300 mg in 50 mls @ 100 mls/ hr IVPB Q6H-IV MICHELLE; Protocol Last Admin: 09/16/17 10:56 Dose: 100 mls/hr Piperacillin Sod/Tazobactam (Sod 2.25 gm/ Dextrose) 50 mls @ 100 mls/hr IVPB Q8H-IV MICHELLE; Protocol Last Admin: 09/16/17 09:11 Dose: 100 mls/hr Prednisone (Deltasone -) 5 mg PO DAILY [facility] Last Admin: 09/16/17 09:10 Dose: 5 mg - Objective Vital Signs: Vital Signs Temperature 97.9 F 09/16/17 09:00 Pulse Rate 67 09/16/17 09:00 Respiratory Rate 18 09/16/17 09:00 Blood Pressure 123/71 09/16/17 09:00 O2 Sat by Pulse Oximetry (%) 95 09/16/17 09:00 Constitutional: Yes: No Distress Cardiovascular: Yes: Regular Rate and Rhythm Respiratory: Yes: Regular Gastrointestinal: Yes: Normal Bowel Sounds, Soft Extremities: Yes: Other (b/l LE dressings intact) Neurological: Yes: Alert Labs: CBC, BMP 09/16/17 05:50 09/16/17 05:50 blood culture pending Problem List - Problems (1) Bilateral lower leg cellulitis Code(s): L03.116 - CELLULITIS OF LEFT LOWER LIMB; L03.115 - CELLULITIS OF RIGHT LOWER LIMB (2) Venous stasis ulcers of both lower extremities Code(s): I83.019 - VARICOSE VEINS OF RIGHT LOWER EXTREMITY W ULCER OF UNSP SITE ; I83.029 - VARICOSE VEINS OF LEFT LOWER EXTREMITY W ULCER OF UNSP SITE (3) Anemia Code(s): D64.9 - ANEMIA, UNSPECIFIED Assessment/Plan B/L LE cellulitis Chronic venous stasis ulcers CKD Anemia Gout HTN -- continue current antibiotics for now -- wound care monitor for signs of improvement
[2017-09-16] MEDS ORDERED: PT OWN MED DRAWER 7, Y5N ONE ×3 (15:26→20:11)
[2017-09-17] MEDS ORDERED: PT OWN MED DRAWER 7, Y5N ONE ×4 (02:59→20:31)
[2017-09-17] MEDS ORDERED: PIPERACILLIN/TAZOBACTAM 2.25 GM VIAL IVPB ONE ×3 (02:59→17:25)
[2017-09-17] MEDS ORDERED: DEXTROSE 5%-WATER - 50 ML IVPB ONE ×3 (03:00→17:26)
[2017-09-17] MEDS: PIPERACILLIN/TAZOB 2.25 GM 2.25 GM in DEXTROSE 5%-WATER - 50 ML IVPB SCH ×3 (03:01→18:03)
[2017-09-17] MEDS: CLINDAMYCIN 300 MG PREMIX IVPB 300 MG/50 ML BAG IVPB SCH ×4 (03:56→20:53)
[2017-09-17] MEDS: HEPARIN NA (PORCINE) 5,000 UNITS/ML 1ML VIAL SQ SCH ×3 (07:00→21:02)
[2017-09-17 07:34] LABS: HEMATOCRIT 23.1 % (35.4-49); HEMOGLOBIN 7.5 GM/dL (11.7-16.9); MCH 25.7 pg (25.7-33.7); MCHC 32.2 g/dl (32.0-35.9); MEAN CELL VOLUME 79.6 fl (80-96); PLATELET COUNT 228 K/MM3 (134-434); RBC 2.91 M/mm3 (4.00-5.60); RDW 20.4 % (11.9-15.9); WHITE BLOOD COUNT 5.7 K/mm3 (4.0-10.0)
[2017-09-17 07:54] LABS: CHLORIDE 113 mmol/L (98-107); POTASSIUM 5.1 mmol/L (3.5-5.1); SODIUM 144 mmol/L (136-145)
[2017-09-17 08:10] LABS: ANION GAP 6 (8-16); BLOOD UREA NITROGEN 39 mg/dL (7-18); CALCIUM 7.6 mg/dL (8.5-10.1); CO2 25 mmol/L (21-32); GLUCOSE,RANDOM 78 mg/dL (74-106)
[2017-09-17] MEDS: ALLOPURINOL 100 MG TABLET (FP) PO SCH ×2 (09:12→21:02)
[2017-09-17] MEDS: FUROSEMIDE 40 MG TABLET (FP) PO SCH (09:12)
[2017-09-17] MEDS: predniSONE 5 MG TABLET (UD) PO SCH (09:12)
[2017-09-17] MEDS: FOLIC ACID 1 MG TABLET (FP) PO SCH (09:13)
--- NOTE | 2017-09-17 13:24 | PN ---
Progress Note, Physician History of Present Illness: Pt states he feels overall well. LLE feels slightly "heavier". Remains afebrile. Otherwise, no other complaints. - Current Medication List Current Medications: Active Medications Allopurinol (Zyloprim -) 100 mg PO BID [facility] Last Admin: 09/17/17 09:12 Dose: 100 mg Folic Acid (Folic Acid -) 1 mg PO DAILY [facility] Last Admin: 09/17/17 09:13 Dose: 1 mg Furosemide (Lasix -) 40 mg PO DAILY [facility] Last Admin: 09/17/17 09:12 Dose: 40 mg Heparin Sodium (Porcine) (Heparin -) 5,000 unit SQ TID [facility] Last Admin: 09/17/17 07:00 Dose: 5,000 unit Clindamycin Phosphate (Cleocin 300 Mg Premix Ivpb) 300 mg in 50 mls @ 100 mls/ hr IVPB Q6H-IV MICHELLE; Protocol Last Admin: 09/17/17 09:12 Dose: 100 mls/hr Piperacillin Sod/Tazobactam (Sod 2.25 gm/ Dextrose) 50 mls @ 100 mls/hr IVPB Q8H-IV [facility]; Protocol Last Admin: 09/17/17 10:04 Dose: 100 mls/hr Prednisone (Deltasone -) 5 mg PO DAILY [facility] Last Admin: 09/17/17 09:12 Dose: 5 mg - Objective Vital Signs: Vital Signs Temperature 98.1 F 09/17/17 10:00 Pulse Rate 72 09/17/17 10:00 Respiratory Rate 18 09/17/17 10:00 Blood Pressure 124/72 09/17/17 10:00 O2 Sat by Pulse Oximetry (%) 98 09/17/17 09:00 Constitutional: Yes: No Distress, Calm Cardiovascular: Yes: Regular Rate and Rhythm Respiratory: Yes: Regular Gastrointestinal: Yes: Normal Bowel Sounds, Soft Musculoskeletal: Yes: WNL Extremities: Yes: Other (b/l LE lymphedema) Wound/Incision: Yes: Other (LE b/l dressings intact (instructions not to remove dressings)) Neurological: Yes: Alert, Oriented Labs: CBC, BMP 09/17/17 06:00 09/17/17 06:00 Problem List - Problems (1) Bilateral lower leg cellulitis Code(s): L03.116 - CELLULITIS OF LEFT LOWER LIMB; L03.115 - CELLULITIS OF RIGHT LOWER LIMB (2) Venous stasis ulcers of both lower extremities Code(s): I83.019 - VARICOSE VEINS OF RIGHT LOWER EXTREMITY W ULCER OF UNSP SITE ; I83.029 - VARICOSE VEINS OF LEFT LOWER EXTREMITY W ULCER OF UNSP SITE (3) Anemia Code(s): D64.9 - ANEMIA, UNSPECIFIED Assessment/Plan B/L LE cellulitis Chronic venous stasis ulcers CKD Anemia Gout HTN -- continue antibiotics -- f/u with Dr Eric -- wound care
--- NOTE | 2017-09-17 19:24 | PN ---
Physical Exam: SUBJECTIVE: Patient seen and examined at the bedside. Sitting up, feels well, no pain OBJECTIVE: Bilaterl lower ext wounds noted Vital Signs Period Temp Pulse Resp BP Sys/[place] Pulse Ox Last 24 Hr 97.9 F-98.4 F 68-78 18-19 113-138/62-87 98-98 GENERAL: The patient is awake, alert, and fully oriented, in no acute distress. HEAD: Normal with no signs of trauma. EYES: PERRL, extraocular movements intact, sclera anicteric, conjunctiva clear. No ptosis. ENT: Ears normal, nares patent, oropharynx clear without exudates, moist mucous membranes. NECK: Trachea midline, full range of motion, supple. LUNGS: Breath sounds equal, clear to auscultation bilaterally, no wheezes, no crackles, no accessory muscle use. HEART: Regular rate and rhythm ABDOMEN: Soft, nontender, nondistended, normoactive bowel sounds, no guarding, no rebound, no hepatosplenomegaly, no masses. EXTREMITIES: bilateral lower extremity edema, non pitting, bilateral wounds dressed. Left leg edema > right NEUROLOGICAL: . Normal speech, gait not observed. PSYCH: Normal mood, normal affect. Laboratory Results - last 24 hr 09/17/17 09/17/17 06:00 06:00 WBC 5.7 RBC 2.91 L Hgb 7.5 L Hct 23.1 L MCV 79.6 L MCH 25.7 MCHC 32.2 RDW 20.4 H Plt Count 228 MPV 9.0 Sodium 144 Potassium 5.1 Chloride 113 H Carbon Dioxide 25 Anion Gap 6 L BUN 39 H Creatinine 2.0 H Random Glucose 78 Calcium 7.6 L Ferritin 98.693 Active Medications Generic Name Dose Route Start Last Admin Trade Name Freq PRN Reason Stop Dose Admin Allopurinol 100 mg 09/15/17 22:00 09/17/17 09:12 Zyloprim - PO 100 mg BID MICHELLE Administration Folic Acid 1 mg 09/16/17 10:00 09/17/17 09:13 Folic Acid - PO 1 mg DAILY MICHELLE Administration Furosemide 40 mg 09/16/17 10:00 09/17/17 09:12 Lasix - PO 40 mg DAILY MICHELLE Administration Heparin Sodium (Porcine) 5,000 unit 09/15/17 22:00 09/17/17 15:04 Heparin - SQ 5,000 unit TID MICHELLE Administration Clindamycin Phosphate 300 mg in 50 mls @ 100 mls/hr 09/15/17 16:45 09/17/17 15:04 Cleocin 300 Mg Premix Ivpb IVPB 100 mls/hr Q6H-IV MICHELLE Administration Protocol Piperacillin Sod/Tazobactam 50 mls @ 100 mls/hr 09/15/17 18:00 09/17/17 18:03 Sod 2.25 gm/ Dextrose IVPB 100 mls/hr Q8H-IV MICHELLE Administration Protocol Prednisone 5 mg 09/16/17 10:00 09/17/17 09:12 Deltasone - PO 5 mg DAILY MICHELLE Administration . ASSESSMENT/PLAN: Patient is a 56 year old male with a past medical history of anemia, aortic root dilatation, CKD, CHF, HTN, gout, chronic venous stasis ulcers ( sees Dr. Denise Eric). Patient was sent by Dr. Eric for cellulitis. Patient is having difficulty ambulating secondary to pain. The patient denies any fever, chills, headache, chest pain, dizziness or any discomfort. ID: Bilatera lower extremity cellulitis, acute on chronic. Legs currently wrapped. Patient reports left leg more edematous than right. On Lasix daily. ID following. On Clindamycin and Zosyn (09/15 > ). Vascular following. Monitor daily weights, intake and output. Heme: Normacytic anemia, chronic. Iron studies pending. Monitor CBC with daily labs. Hmg/Hct low stable hmg low stable Renal Chronic Kidney disease. Monitor renal function. Avoid neprotoxins. Creatinine @ baseline. Consider renal consult if creat above baseline. Gout, chronic, on Prednisone Card: Hypertension, chronic/controlled Monitor BP F.E.N. Fluids: tolerating PO Electrolytes: monitor Nutriton: renal diet Prophy: DVT: Heparin TID GI: Protonix full code Visit type - Emergency Visit Emergency Visit: Yes ED Registration Date: 09/15/17 Care time: The patient presented to the Emergency Department on the above date and was hospitalized for further evaluation of their emergent condition. - New Patient This patient is new to me today: Yes Date on this admission: 09/17/17 - Critical Care Critical Care patient: No - Discharge Referral Referred to [facility] Med P.C.: No
--- NOTE | 2017-09-17 22:29 | EKG ---
Test Reason : Blood Pressure : / mmHG Vent. Rate : 070 BPM Atrial Rate : 070 BPM P-R Int : 196 ms QRS Dur : 104 ms QT Int : 430 ms P-R-T Axes : 041 -32 043 degrees QTc Int : 464 ms SINUS RHYTHM WITH MARKED SINUS ARRHYTHMIA LEFT AXIS DEVIATION INCOMPLETE RIGHT BUNDLE BRANCH BLOCK ABNORMAL ECG WHEN COMPARED WITH ECG OF 28-JUN-2016 09:35, PREMATURE ATRIAL COMPLEXES ARE NO LONGER PRESENT Confirmed by HINA DAVIES MD ([id number]) on 09/17/2017 10:28:26 PM Referred By: Confirmed By:HINA DAVIES MD
[2017-09-18] MEDS ORDERED: PT OWN MED DRAWER 7, Y5N ONE ×4 (02:49→20:13)
[2017-09-18] MEDS ORDERED: PIPERACILLIN/TAZOBACTAM 2.25 GM VIAL IVPB ONE ×3 (02:49→17:02)
[2017-09-18] MEDS ORDERED: DEXTROSE 5%-WATER - 50 ML IVPB ONE ×3 (02:49→17:02)
[2017-09-18] MEDS: PIPERACILLIN/TAZOB 2.25 GM 2.25 GM in DEXTROSE 5%-WATER - 50 ML IVPB SCH ×3 (02:53→17:25)
[2017-09-18] MEDS: CLINDAMYCIN 300 MG PREMIX IVPB 300 MG/50 ML BAG IVPB SCH ×4 (03:31→22:35)
[2017-09-18 06:12] LABS: SERUM IRON SATURATION 9 % (15-55); TOTAL IRON BINDING CAPACITY 153 ug/dL (250-450); UIBC 139 ug/dL (111-343)
[2017-09-18] MEDS: HEPARIN NA (PORCINE) 5,000 UNITS/ML 1ML VIAL SQ SCH ×3 (06:12→22:36)
[2017-09-18 07:39] LABS: BASO % 1.1 % (0-2.0); HEMATOCRIT 22.4 % (35.4-49); HEMOGLOBIN 7.2 GM/dL (11.7-16.9); LYMPH % 14.1 % (8-40); MCH 25.8 pg (25.7-33.7); MCHC 32.1 g/dl (32.0-35.9); MEAN CELL VOLUME 80.2 fl (80-96); MEAN PLT VOLUME 9.1 fl (7.5-11.1); MONO % 11.1 % (3.8-10.2); NEUT % 69.7 % (42.8-82.8); PLATELET COUNT 228 K/MM3 (134-434); RDW 20.3 % (11.9-15.9); WHITE BLOOD COUNT 5.9 K/mm3 (4.0-10.0)
[2017-09-18 07:51] LABS: ALBUMIN 1.9 g/dl (3.4-5.0); ANION GAP 5 (8-16); BLOOD UREA NITROGEN 39 mg/dL (7-18); CHLORIDE 113 mmol/L (98-107); CO2 26 mmol/L (21-32); GLUCOSE,RANDOM 85 mg/dL (74-106); MAGNESIUM 1.7 mg/dL (1.8-2.4); POTASSIUM 4.7 mmol/L (3.5-5.1); SODIUM 144 mmol/L (136-145)
[2017-09-18 07:54] LABS: ALK PHOS 83 U/L (45-117); BILIRUBIN,TOTAL 0.3 mg/dL (0.2-1.0); SGOT/AST 11 U/L (15-37); SGPT/ALT 9 U/L (12-78); TOT PROT 6.5 g/dl (6.4-8.2)
[2017-09-18] MEDS: ALLOPURINOL 100 MG TABLET (FP) PO SCH ×2 (09:11→22:36)
[2017-09-18] MEDS: FUROSEMIDE 40 MG TABLET (FP) PO SCH (09:12)
[2017-09-18] MEDS: predniSONE 5 MG TABLET (UD) PO SCH (09:12)
[2017-09-18] MEDS: FOLIC ACID 1 MG TABLET (FP) PO SCH (09:12)
[2017-09-18] MEDS ORDERED: MAGNESIUM SULF 50% (8.12 MEQ/2 ML-1 GM VIAL) IVPB ONE (09:49)
--- NOTE | 2017-09-18 09:59 | PN ---
Physical Exam: SUBJECTIVE: Patient seen and examined. Pt states his legs feel less heavy and he has pain to his L middle finger, usually chronic but now with increased pain. OBJECTIVE: Vital Signs Period Temp Pulse Resp BP Sys/Mcfarland Pulse Ox Last 24 Hr 98.1 F-98.3 F 72-82 18-20 106-137/56-87 96 PE Neuro: alert, awake, cn 2-12intact Pulm: CTAB CV: s1 s2 rrr no mrg Abd: s nt nd +bs Ext: b/l le venous stasis changes, dried lesions, dressing in tact Msk: L third digit, 1 meta tarsal swelling, tenderness, warm Laboratory Results - last 24 hr 09/17/17 09/18/17 09/18/17 06:00 06:20 06:20 WBC 5.9 RBC 2.80 L Hgb 7.2 L Hct 22.4 L MCV 80.2 MCH 25.8 MCHC 32.1 RDW 20.3 H Plt Count 228 MPV 9.1 Neutrophils % 69.7 Lymphocytes % 14.1 D Monocytes % 11.1 H Eosinophils % 4.0 Basophils % 1.1 Nucleated RBC % 0 Sodium 144 Potassium 4.7 Chloride 113 H Carbon Dioxide 26 Anion Gap 5 L BUN 39 H Creatinine 2.0 H Creat Clearance w eGFR 34.37 Random Glucose 85 Calcium 7.0 L Magnesium 1.7 L Iron 14 L TIBC 153 L Iron Saturation 9 L Total Bilirubin 0.3 D AST 11 L ALT 9 L Alkaline Phosphatase 83 Total Protein 6.5 Albumin 1.9 L Active Medications Generic Name Dose Route Start Last Admin Trade Name Aliyah PRN Reason Stop Dose Admin Allopurinol 100 mg 09/15/17 22:00 09/18/17 09:11 Zyloprim - PO 100 mg BID MICHELLE Administration Folic Acid 1 mg 09/16/17 10:00 09/18/17 09:12 Folic Acid - PO 1 mg DAILY MICHELLE Administration Furosemide 40 mg 09/16/17 10:00 09/18/17 09:12 Lasix - PO 40 mg DAILY MICHELLE Administration Heparin Sodium (Porcine) 5,000 unit 09/15/17 22:00 09/18/17 06:12 Heparin - SQ 5,000 unit TID MICHELLE Administration Clindamycin Phosphate 300 mg in 50 mls @ 100 mls/hr 09/15/17 16:45 09/18/17 09:12 Cleocin 300 Mg Premix Ivpb IVPB 100 mls/hr Q6H-IV MICHELLE Administration Protocol Piperacillin Sod/Tazobactam 50 mls @ 100 mls/hr 09/15/17 18:00 09/18/17 02:53 Sod 2.25 gm/ Dextrose IVPB 100 mls/hr Q8H-IV MICHELLE Administration Protocol Magnesium Sulfate 1 gm 09/18/17 09:49 Magnesium Sulfate IVPB 09/18/17 09:50 ONCE ONE Pantoprazole Sodium 40 mg 09/18/17 10:00 09/18/17 09:12 Protonix - PO 40 mg DAILY MICHELLE Administration Prednisone 5 mg 09/16/17 10:00 09/18/17 09:12 Deltasone - PO 5 mg DAILY MICHELLE Administration Assessment: 56 year old male with pmhx of anemia, aortic root dilatation, CKD, CHF, HTN, gout, chronic venous stasis ulcers (sees Dr. Denise Eric) sent by Dr. Eric for lower ext cellulitis. Plan: 1. Acute b/l lower ext cellulitis - Dressing changes per vascular, have not been changed since Monday - Continue clinda, zosyn (09/15-) - ID seeing 2. Chronic venous stasis ulcers - Continue lasix 40mg daily - LEAH wraps - See above 3. Iron deficiency anemia - Iron studies noted - Give x1 dose venofer - Start ferrous sulfate - Will transfuse for hgb <7 4. RAMY on CKD - Cr around baseline - On lasix 5. Acute gout - Give additional prednisone 30mg x1 now, repeat tomorrow pending response - Hold daily prednisone 5mg daily - Allopurinol daily 6. DVT ppx - Heparin sq Visit type - Emergency Visit Emergency Visit: Yes ED Registration Date: 09/15/17 Care time: The patient presented to the Emergency Department on the above date and was hospitalized for further evaluation of their emergent condition. - New Patient This patient is new to me today: Yes Date on this admission: 09/18/17 - Critical Care Critical Care patient: No
[2017-09-18] MEDS ORDERED: PANTOPRAZOLE 40 MG TABLET (FP) PO SCH (10:00)
[2017-09-18] MEDS ORDERED: predniSONE 10 MG TABLET (UD) PO ONE (11:00)
[2017-09-18] MEDS ORDERED: IRON SUCROSE INJECTION 200 MG in SODIUM CHLORIDE 240 ML IVPB ONE (12:00)
--- NOTE | 2017-09-18 12:26 | PN ---
Progress Note, Physician History of Present Illness: stable no new issues - Current Medication List Current Medications: Active Medications Allopurinol (Zyloprim -) 100 mg PO BID [facility] Last Admin: 09/18/17 09:11 Dose: 100 mg Folic Acid (Folic Acid -) 1 mg PO DAILY [facility] Last Admin: 09/18/17 09:12 Dose: 1 mg Furosemide (Lasix -) 40 mg PO DAILY [facility] Last Admin: 09/18/17 09:12 Dose: 40 mg Heparin Sodium (Porcine) (Heparin -) 5,000 unit SQ TID [facility] Last Admin: 09/18/17 06:12 Dose: 5,000 unit Clindamycin Phosphate (Cleocin 300 Mg Premix Ivpb) 300 mg in 50 mls @ 100 mls/ hr IVPB Q6H-IV [facility]; Protocol Last Admin: 09/18/17 09:12 Dose: 100 mls/hr Piperacillin Sod/Tazobactam (Sod 2.25 gm/ Dextrose) 50 mls @ 100 mls/hr IVPB Q8H-IV [facility]; Protocol Last Admin: 09/18/17 10:00 Dose: 100 mls/hr Iron Sucrose 200 mg/ Sodium (Chloride) 250 mls @ 250 mls/hr IVPB ONCE ONE Stop: 09/18/17 12:59 Magnesium Sulfate/Dextrose (Magnesium 1gm/D5w -) 1 gm in 100 mls @ 100 mls/hr IVPB ONCE ONE Stop: 09/18/17 13:59 Prednisone (Deltasone -) 5 mg PO DAILY [facility] Last Admin: 09/18/17 09:12 Dose: 5 mg - Objective Vital Signs: Vital Signs Temperature 97.3 F L 09/18/17 09:00 Pulse Rate 74 09/18/17 09:00 Respiratory Rate 20 09/18/17 09:00 Blood Pressure 131/69 09/18/17 09:00 O2 Sat by Pulse Oximetry (%) 96 09/18/17 09:00 Constitutional: Yes: No Distress, Calm Cardiovascular: Yes: Regular Rate and Rhythm Respiratory: Yes: Regular, CTA Bilaterally Gastrointestinal: Yes: Normal Bowel Sounds, Soft Musculoskeletal: Yes: WNL Extremities: Yes: Other Wound/Incision: Yes: Dressing Dry and Intact Neurological: Yes: Alert, Oriented Psychiatric: Yes: WNL, Alert Labs: CBC, BMP 09/18/17 06:09/18/17 06:20 Assessment/Plan 57 year old with PMHx of HTN, gout, CKD, HTN, chronic venous stasis ulcers, B/l lower extremity cellulitis 2) Hyperkalemia 3) HTN 4) Chronic systolic and diastolic heart failure 5) Gout 6) CKD 7) Anemia of chronic disease plan continue abx wound care rest contine current mgmt rest as per the team
[2017-09-18] MEDS ORDERED: MAGNESIUM 1GM/D5W - 1 GM/100 ML IVPB IVPB ONE (13:00)
[2017-09-19] MEDS ORDERED: PIPERACILLIN/TAZOBACTAM 2.25 GM VIAL IVPB ONE ×3 (01:01→16:44)
[2017-09-19] MEDS ORDERED: PT OWN MED DRAWER 7, Y5N ONE ×2 (01:01→20:30)
[2017-09-19] MEDS ORDERED: DEXTROSE 5%-WATER - 50 ML IVPB ONE ×3 (01:02→16:44)
[2017-09-19] MEDS: PIPERACILLIN/TAZOB 2.25 GM 2.25 GM in DEXTROSE 5%-WATER - 50 ML IVPB SCH ×3 (01:52→17:10)
[2017-09-19] MEDS: CLINDAMYCIN 300 MG PREMIX IVPB 300 MG/50 ML BAG IVPB SCH ×4 (02:31→21:04)
[2017-09-19] MEDS: HEPARIN NA (PORCINE) 5,000 UNITS/ML 1ML VIAL SQ SCH ×3 (06:28→21:03)
[2017-09-19 07:26] LABS: HEMATOCRIT 26.3 % (35.4-49); HEMOGLOBIN 8.4 GM/dL (11.7-16.9); MCH 25.4 pg (25.7-33.7); MCHC 31.9 g/dl (32.0-35.9); MEAN CELL VOLUME 79.7 fl (80-96); MEAN PLT VOLUME 8.8 fl (7.5-11.1); PLATELET COUNT 271 K/MM3 (134-434); RBC 3.31 M/mm3 (4.00-5.60); RDW 20.3 % (11.9-15.9); WHITE BLOOD COUNT 6.7 K/mm3 (4.0-10.0)
[2017-09-19 09:01] LABS: ANION GAP 7 (8-16); BLOOD UREA NITROGEN 38 mg/dL (7-18); CHLORIDE 111 mmol/L (98-107); CO2 23 mmol/L (21-32); CREATININE 2.1 mg/dL (0.7-1.3); GLUCOSE,RANDOM 93 mg/dL (74-106); POTASSIUM 4.9 mmol/L (3.5-5.1); SODIUM 141 mmol/L (136-145)
[2017-09-19] MEDS: FUROSEMIDE 40 MG TABLET (FP) PO SCH (09:51)
[2017-09-19] MEDS: FOLIC ACID 1 MG TABLET (FP) PO SCH (09:51)
[2017-09-19] MEDS: ALLOPURINOL 100 MG TABLET (FP) PO SCH ×2 (09:52→21:04)
[2017-09-19] MEDS: predniSONE 5 MG TABLET (UD) PO SCH (11:07)
[2017-09-19] MEDS ORDERED: predniSONE 10 MG TABLET (UD) PO ONE (12:42)
[2017-09-19] MEDS ORDERED: IRON SUCROSE INJECTION 200 MG in SODIUM CHLORIDE 240 ML IVPB ONE (14:39)
--- NOTE | 2017-09-19 14:42 | PN ---
Physical Exam: SUBJECTIVE: Patient seen and examined. He feels good, no complaints with his lower ext. OBJECTIVE: Vital Signs Period Temp Pulse Resp BP Sys/Mcfarland Pulse Ox Last 24 Hr 97.4 F-98.9 F 62-72 16-20 112-143/64-80 97-98 PE Neuro: alert, awake, cn 2-12intact Pulm: CTAB CV: s1 s2 rrr no mrg Abd: s nt nd +bs Ext: b/l le venous stasis changes, dried lesions, dressing in tact Msk: L third digit, 1 meta tarsal swelling- improved, warmth resolved, less tender, still unable to make complete fist Laboratory Results - last 24 hr 09/19/17 09/19/17 06:00 06:00 WBC 6.7 RBC 3.31 L Hgb 8.4 L D Hct 26.3 L D MCV 79.7 L MCH 25.4 L MCHC 31.9 L RDW 20.3 H Plt Count 271 MPV 8.8 Sodium 141 Potassium 4.9 Chloride 111 H Carbon Dioxide 23 Anion Gap 7 L BUN 38 H Creatinine 2.1 H Random Glucose 93 Calcium 8.0 L Magnesium 2.0 Active Medications Generic Name Dose Route Start Last Admin Trade Name Freq PRN Reason Stop Dose Admin Allopurinol 100 mg 09/15/17 22:00 09/19/17 09:52 Zyloprim - PO 100 mg BID MICHELLE Administration Folic Acid 1 mg 09/16/17 10:00 09/19/17 09:51 Folic Acid - PO 1 mg DAILY MICHELLE Administration Furosemide 40 mg 09/16/17 10:00 09/19/17 09:51 Lasix - PO 40 mg DAILY MICHELLE Administration Heparin Sodium (Porcine) 5,000 unit 09/15/17 22:00 09/19/17 13:47 Heparin - SQ 5,000 unit TID MICHELLE Administration Clindamycin Phosphate 300 mg in 50 mls @ 100 mls/hr 09/15/17 16:45 09/19/17 14:32 Cleocin 300 Mg Premix Ivpb IVPB 100 mls/hr Q6H-IV MICHELLE Administration Protocol Piperacillin Sod/Tazobactam 50 mls @ 100 mls/hr 09/15/17 18:00 09/19/17 09:51 Sod 2.25 gm/ Dextrose IVPB 100 mls/hr Q8H-IV MICHELLE Administration Protocol Prednisone 5 mg 09/16/17 10:00 09/19/17 11:07 Deltasone - PO 5 mg DAILY MICHELLE Administration Assessment: 56 year old male with pmhx of anemia, aortic root dilatation, CKD, CHF, HTN, gout, chronic venous stasis ulcers (sees Dr. Denise Eric) sent by Dr. Eric for lower ext cellulitis. Plan: 1. Acute b/l lower ext cellulitis - Dressing changes xeroform and LEAH bandages daily per vascular - Continue clinda, zosyn (09/15-) - ID seeing 2. Chronic venous stasis ulcers - Continue lasix 40mg daily - LEAH wraps - See above 3. Iron deficiency anemia - S/p 1 dose venofer 09/18, give additional today - Start ferrous sulfate - Will transfuse for hgb <7 4. RAMY on CKD - Cr around baseline - On lasix 5. Acute gout - Will dose 30mg prednisone again today - Daily prednisone 5mg daily - Allopurinol daily 6. Hypocalcemia - Corrected 8.68 7. DVT ppx - Heparin sq Visit type - Emergency Visit Emergency Visit: Yes ED Registration Date: 09/15/17 Care time: The patient presented to the Emergency Department on the above date and was hospitalized for further evaluation of their emergent condition. - New Patient This patient is new to me today: No - Critical Care Critical Care patient: No
[2017-09-19] MEDS: FERROUS SO4 325 MG TABLET (FP) PO SCH (21:04)
[2017-09-19] MEDS: DOCUSATE SODIUM 100 MG CAPSULE (FP) PO SCH (21:04)
[2017-09-20] MEDS ORDERED: PIPERACILLIN/TAZOBACTAM 2.25 GM VIAL IVPB ONE ×3 (01:56→16:54)
[2017-09-20] MEDS ORDERED: DEXTROSE 5%-WATER - 50 ML IVPB ONE ×3 (01:56→16:54)
[2017-09-20] MEDS ORDERED: PT OWN MED DRAWER 7, Y5N ONE (01:57)
[2017-09-20] MEDS: PIPERACILLIN/TAZOB 2.25 GM 2.25 GM in DEXTROSE 5%-WATER - 50 ML IVPB SCH ×3 (02:30→17:09)
[2017-09-20] MEDS: CLINDAMYCIN 300 MG PREMIX IVPB 300 MG/50 ML BAG IVPB SCH ×4 (03:12→21:16)
[2017-09-20] MEDS: HEPARIN NA (PORCINE) 5,000 UNITS/ML 1ML VIAL SQ SCH ×3 (06:14→21:19)
[2017-09-20 08:19] LABS: CHLORIDE 110 mmol/L (98-107); POTASSIUM 5.1 mmol/L (3.5-5.1); SODIUM 140 mmol/L (136-145)
[2017-09-20 08:32] LABS: ANION GAP 7 (8-16); BLOOD UREA NITROGEN 39 mg/dL (7-18); CALCIUM 7.6 mg/dL (8.5-10.1); CO2 23 mmol/L (21-32); GLUCOSE,RANDOM 95 mg/dL (74-106)
[2017-09-20] MEDS: FERROUS SO4 325 MG TABLET (FP) PO SCH ×2 (09:48→21:18)
[2017-09-20] MEDS: DOCUSATE SODIUM 100 MG CAPSULE (FP) PO SCH ×2 (09:48→21:18)
[2017-09-20] MEDS: FUROSEMIDE 40 MG TABLET (FP) PO SCH (09:48)
[2017-09-20] MEDS: predniSONE 5 MG TABLET (UD) PO SCH (09:48)
[2017-09-20] MEDS: FOLIC ACID 1 MG TABLET (FP) PO SCH (09:48)
[2017-09-20] MEDS: ALLOPURINOL 100 MG TABLET (FP) PO SCH ×2 (09:48→21:18)
--- NOTE | 2017-09-20 13:23 | PN ---
Physical Exam: SUBJECTIVE: Patient seen and examined. He says his legs feel better, he still can't make a full fist with L hand. OBJECTIVE: Vital Signs Period Temp Pulse Resp BP Sys/Mcfarland Pulse Ox Last 24 Hr 97.4 F-97.8 F 63-72 18-20 114-144/74-79 100 PE Neuro: alert, awake, cn 2-12intact Pulm: CTAB CV: s1 s2 rrr no mrg Abd: s nt nd +bs Ext: b/l le venous stasis changes, dried lesions, leah bandages in place Msk: L third digit swelling improved Laboratory Results - last 24 hr 09/20/17 06:00 Sodium 140 Potassium 5.1 Chloride 110 H Carbon Dioxide 23 Anion Gap 7 L BUN 39 H Creatinine 2.0 H Random Glucose 95 Calcium 7.6 L Active Medications Generic Name Dose Route Start Last Admin Trade Name Freq PRN Reason Stop Dose Admin Allopurinol 100 mg 09/15/17 22:00 09/20/17 09:48 Zyloprim - PO 100 mg BID MICHELLE Administration Docusate Sodium 100 mg 09/19/17 22:00 09/20/17 09:48 Colace - PO 100 mg BID MICHELLE Administration Ferrous Sulfate 325 mg 09/19/17 22:00 09/20/17 09:48 Feosol - PO 325 mg BID MICHELLE Administration Folic Acid 1 mg 09/16/17 10:00 09/20/17 09:48 Folic Acid - PO 1 mg DAILY MICHELLE Administration Furosemide 40 mg 09/16/17 10:00 09/20/17 09:48 Lasix - PO 40 mg DAILY MICHELLE Administration Heparin Sodium (Porcine) 5,000 unit 09/15/17 22:00 09/20/17 06:14 Heparin - SQ 5,000 unit TID MICHELLE Administration Clindamycin Phosphate 300 mg in 50 mls @ 100 mls/hr 09/15/17 16:45 09/20/17 09:49 Cleocin 300 Mg Premix Ivpb IVPB 100 mls/hr Q6H-IV MICHELLE Administration Protocol Piperacillin Sod/Tazobactam 50 mls @ 100 mls/hr 09/15/17 18:00 09/20/17 09:48 Sod 2.25 gm/ Dextrose IVPB 100 mls/hr Q8H-IV MICHELLE Administration Protocol Prednisone 5 mg 09/16/17 10:00 09/20/17 09:48 Deltasone - PO 5 mg DAILY MICHELLE Administration Assessment: 56 year old male with pmhx of anemia, aortic root dilatation, CKD, CHF, HTN, gout, chronic venous stasis ulcers (sees Dr. Denise Eric) sent by Dr. Eric for lower ext cellulitis. Plan: 1. Acute b/l lower ext cellulitis - Dressing changes xeroform and LEAH bandages daily per vascular - Continue clinda, zosyn (09/15-) - ID seeing 2. Chronic venous stasis ulcers - Continue lasix 40mg daily - LEAH wraps - See above 3. Iron deficiency anemia - S/p 2 doses venofer - Stared ferrous sulfate BID - Will transfuse for hgb <7 4. RAMY on CKD - Cr around baseline - On lasix 5. Acute gout - Improved s/p 2 doses 30mg - Resume daily prednisone 5mg daily - Allopurinol daily 6. DVT ppx - Heparin sq Visit type - Emergency Visit Emergency Visit: Yes ED Registration Date: 09/15/17 Care time: The patient presented to the Emergency Department on the above date and was hospitalized for further evaluation of their emergent condition. - New Patient This patient is new to me today: No - Critical Care Critical Care patient: No
--- NOTE | 2017-09-20 13:46 | PN ---
Progress Note, Physician History of Present Illness: doing well no complaints feels better - Current Medication List Current Medications: Active Medications Allopurinol (Zyloprim -) 100 mg PO BID [facility] Last Admin: 09/20/17 09:48 Dose: 100 mg Docusate Sodium (Colace -) 100 mg PO BID [facility] Last Admin: 09/20/17 09:48 Dose: 100 mg Ferrous Sulfate (Feosol -) 325 mg PO BID [facility] Last Admin: 09/20/17 09:48 Dose: 325 mg Folic Acid (Folic Acid -) 1 mg PO DAILY [facility] Last Admin: 09/20/17 09:48 Dose: 1 mg Furosemide (Lasix -) 40 mg PO DAILY [facility] Last Admin: 09/20/17 09:48 Dose: 40 mg Heparin Sodium (Porcine) (Heparin -) 5,000 unit SQ TID [facility] Last Admin: 09/20/17 06:14 Dose: 5,000 unit Clindamycin Phosphate (Cleocin 300 Mg Premix Ivpb) 300 mg in 50 mls @ 100 mls/ hr IVPB Q6H-IV [facility]; Protocol Last Admin: 09/20/17 09:49 Dose: 100 mls/hr Piperacillin Sod/Tazobactam (Sod 2.25 gm/ Dextrose) 50 mls @ 100 mls/hr IVPB Q8H-IV [facility]; Protocol Last Admin: 09/20/17 09:48 Dose: 100 mls/hr Prednisone (Deltasone -) 5 mg PO DAILY [facility] Last Admin: 09/20/17 09:48 Dose: 5 mg - Objective Vital Signs: Vital Signs Temperature 97.4 F L 09/20/17 09:00 Pulse Rate 65 09/20/17 09:00 Respiratory Rate 18 09/20/17 09:00 Blood Pressure 117/74 09/20/17 09:00 O2 Sat by Pulse Oximetry (%) 100 09/19/17 20:26 Constitutional: Yes: No Distress, Calm Cardiovascular: Yes: Regular Rate and Rhythm Respiratory: Yes: Regular, CTA Bilaterally Gastrointestinal: Yes: Normal Bowel Sounds, Soft Musculoskeletal: Yes: Other Extremities: Yes: Other Wound/Incision: Yes: Dressing Dry and Intact Neurological: Yes: Alert, Oriented Psychiatric: Yes: Alert, Oriented Labs: CBC, BMP 09/19/17 06:00 09/20/17 06:00 Assessment/Plan 57 year old with PMHx of HTN, gout, CKD, HTN, chronic venous stasis ulcers, B/l lower extremity cellulitis 2) Hyperkalemia 3) HTN 4) Chronic systolic and diastolic heart failure 5) Gout 6) CKD 7) Anemia of chronic disease plan continue abx wound care rest contine current mgmt rest as per the team blood cx report noted
--- NOTE | 2017-09-20 14:00 | PN ---
Progress Note, Physician History of Present Illness: doing well no new issues - Current Medication List Current Medications: Active Medications Allopurinol (Zyloprim -) 100 mg PO BID [facility] Last Admin: 09/20/17 09:48 Dose: 100 mg Docusate Sodium (Colace -) 100 mg PO BID [facility] Last Admin: 09/20/17 09:48 Dose: 100 mg Ferrous Sulfate (Feosol -) 325 mg PO BID [facility] Last Admin: 09/20/17 09:48 Dose: 325 mg Folic Acid (Folic Acid -) 1 mg PO DAILY [facility] Last Admin: 09/20/17 09:48 Dose: 1 mg Furosemide (Lasix -) 40 mg PO DAILY [facility] Last Admin: 09/20/17 09:48 Dose: 40 mg Heparin Sodium (Porcine) (Heparin -) 5,000 unit SQ TID [facility] Last Admin: 09/20/17 06:14 Dose: 5,000 unit Clindamycin Phosphate (Cleocin 300 Mg Premix Ivpb) 300 mg in 50 mls @ 100 mls/ hr IVPB Q6H-IV [facility]; Protocol Last Admin: 09/20/17 09:49 Dose: 100 mls/hr Piperacillin Sod/Tazobactam (Sod 2.25 gm/ Dextrose) 50 mls @ 100 mls/hr IVPB Q8H-IV [facility]; Protocol Last Admin: 09/20/17 09:48 Dose: 100 mls/hr Prednisone (Deltasone -) 5 mg PO DAILY [facility] Last Admin: 09/20/17 09:48 Dose: 5 mg - Objective Vital Signs: Vital Signs Temperature 97.4 F L 09/20/17 09:00 Pulse Rate 65 09/20/17 09:00 Respiratory Rate 18 09/20/17 09:00 Blood Pressure 117/74 09/20/17 09:00 O2 Sat by Pulse Oximetry (%) 100 09/19/17 20:26 Constitutional: Yes: No Distress, Calm Cardiovascular: Yes: Regular Rate and Rhythm Respiratory: Yes: Regular, CTA Bilaterally Gastrointestinal: Yes: Normal Bowel Sounds, Soft Musculoskeletal: Yes: WNL Extremities: Yes: Other Wound/Incision: Yes: Dressing Dry and Intact Neurological: Yes: Alert, Oriented Psychiatric: Yes: Alert, Oriented Labs: CBC, BMP 09/19/17 06:00 09/20/17 06:00 Assessment/Plan 57 year old with PMHx of HTN, gout, CKD, HTN, chronic venous stasis ulcers, B/l lower extremity cellulitis 2) Hyperkalemia 3) HTN 4) Chronic systolic and diastolic heart failure 5) Gout 6) CKD 7) Anemia of chronic disease plan continue abx wound care rest contine current mgmt rest as per the team blood cx report noted
[2017-09-20] MEDS ORDERED: MAG HYDROX/AL HYDROX/SIMETH 30 ML UNIT-DOSE CUP PO ONE (23:15)
[2017-09-20] MEDS ORDERED: PANTOPRAZOLE SODIUM 40 MG VIAL IVPUSH ONE (23:36)
[2017-09-21] MEDS ORDERED: DEXTROSE 5%-WATER - 50 ML IVPB ONE ×3 (01:19→16:44)
[2017-09-21] MEDS ORDERED: PIPERACILLIN/TAZOBACTAM 2.25 GM VIAL IVPB ONE ×3 (01:19→16:43)
[2017-09-21] MEDS: PIPERACILLIN/TAZOB 2.25 GM 2.25 GM in DEXTROSE 5%-WATER - 50 ML IVPB SCH ×3 (01:21→17:02)
[2017-09-21] MEDS: CLINDAMYCIN 300 MG PREMIX IVPB 300 MG/50 ML BAG IVPB SCH ×4 (02:09→20:58)
--- NOTE | 2017-09-21 02:12 | HOSP ---
Subjective - Review of Symptoms Events since last encounter: nurse called pt woke up spitting up saliva c/o burning sensation in stomach. Subjective: Pt reports that nurse gave pt his medicines and "they just sat there" and now reports burning in his upper abdomen. Concerned that the nurse gave him the wrong medicine. Reports that maalox given did not help. Physical Examination Vital Signs: Vital Signs Temperature 98.2 F 09/20/17 23:23 Pulse Rate 68 09/20/17 23:23 Respiratory Rate 18 09/20/17 23:23 Blood Pressure 118/72 09/20/17 23:23 O2 Sat by Pulse Oximetry (%) 97 09/20/17 20:50 Constitutional: Yes: Anxious Cardiovascular: Yes: Regular Rate and Rhythm, S1, S2 Respiratory: Yes: CTA Bilaterally Gastrointestinal: Yes: Normal Bowel Sounds, Soft. No: Tenderness Labs: CBC, BMP 09/19/17 06:00 09/20/17 06:00 Hospitalist Encounter Assessment: epigastric burning - maalox given - protonix ordered - ECG to r/o cardiac etiology although doubtful Addendum: 0050: ECG normal sinus rhythm vent rate 75, QTC 477 left axis deviation when compared with old ECG 09/15/17, incomplete RBBB no longer present, no ST/T wave changes
[2017-09-21] MEDS: HEPARIN NA (PORCINE) 5,000 UNITS/ML 1ML VIAL SQ SCH ×3 (05:54→21:01)
[2017-09-21] MEDS: DOCUSATE SODIUM 100 MG CAPSULE (FP) PO SCH ×2 (10:20→21:01)
[2017-09-21] MEDS: ALLOPURINOL 100 MG TABLET (FP) PO SCH ×2 (10:21→21:09)
[2017-09-21] MEDS: FUROSEMIDE 40 MG TABLET (FP) PO SCH (10:21)
[2017-09-21] MEDS: FOLIC ACID 1 MG TABLET (FP) PO SCH (10:21)
[2017-09-21] MEDS: FERROUS SO4 325 MG TABLET (FP) PO SCH ×2 (10:21→21:01)
[2017-09-21] MEDS: predniSONE 5 MG TABLET (UD) PO SCH (10:21)
--- NOTE | 2017-09-21 11:26 | EKG ---
Test Reason : Blood Pressure : / mmHG Vent. Rate : 073 BPM Atrial Rate : 073 BPM P-R Int : 190 ms QRS Dur : 102 ms QT Int : 446 ms P-R-T Axes : 071 -33 068 degrees QTc Int : 491 ms SINUS RHYTHM WITH MARKED SINUS ARRHYTHMIA LEFT AXIS DEVIATION PROLONGED QT ABNORMAL ECG WHEN COMPARED WITH ECG OF 15-SEP-2017 11:28, NONSPECIFIC T WAVE ABNORMALITY NO LONGER EVIDENT IN ANTERIOR LEADS Confirmed by STEVE MURPHY, BALDEMAR ([id number]) on 09/21/2017 11:26:08 AM Referred By: ROD ERIC Confirmed By:BALDEMAR WILSON MD
--- NOTE | 2017-09-21 15:16 | PN ---
Physical Exam: SUBJECTIVE: Patient seen and examined. Evening events noted. No further complaints. OBJECTIVE: Vital Signs Period Temp Pulse Resp BP Sys/Mcfarland Pulse Ox Last 24 Hr 97.4 F-98.2 F 67-83 18-20 113-140/61-78 97-99 PE Neuro: alert, awake, cn 2-12intact Pulm: CTAB CV: s1 s2 rrr no mrg Abd: s nt nd +bs Ext: b/l le venous stasis changes, dried lesions, leah bandages in place Active Medications Generic Name Dose Route Start Last Admin Trade Name Freq PRN Reason Stop Dose Admin Allopurinol 100 mg 09/15/17 22:00 09/21/17 10:21 Zyloprim - PO 100 mg BID MICHELLE Administration Docusate Sodium 100 mg 09/19/17 22:00 09/21/17 10:20 Colace - PO 100 mg BID MICHELLE Administration Ferrous Sulfate 325 mg 09/19/17 22:00 09/21/17 10:21 Feosol - PO 325 mg BID MICHELLE Administration Folic Acid 1 mg 09/16/17 10:00 09/21/17 10:21 Folic Acid - PO 1 mg DAILY MICHELLE Administration Furosemide 40 mg 09/16/17 10:00 09/21/17 10:21 Lasix - PO 40 mg DAILY MICHELLE Administration Heparin Sodium (Porcine) 5,000 unit 09/15/17 22:00 09/21/17 14:36 Heparin - SQ 5,000 unit TID MICHELLE Administration Clindamycin Phosphate 300 mg in 50 mls @ 100 mls/hr 09/15/17 16:45 09/21/17 14:38 Cleocin 300 Mg Premix Ivpb IVPB 100 mls/hr Q6H-IV MICHELLE Administration Protocol Piperacillin Sod/Tazobactam 50 mls @ 100 mls/hr 09/15/17 18:00 09/21/17 10:21 Sod 2.25 gm/ Dextrose IVPB 100 mls/hr Q8H-IV MICHELLE Administration Protocol Prednisone 5 mg 09/16/17 10:00 09/21/17 10:21 Deltasone - PO 5 mg DAILY MICHELLE Administration Assessment: 56 year old male with pmhx of anemia, aortic root dilatation, CKD, CHF, HTN, gout, chronic venous stasis ulcers (sees Dr. Denise Eric) sent by Dr. Eric for lower ext cellulitis. Plan: 1. Acute b/l lower ext cellulitis - Dressing changes xeroform and LEAH bandages daily per vascular - Continue clinda, zosyn (09/15-) - ID to eval wounds tomorrow, further recs pending eval 2. Chronic venous stasis ulcers - Continue lasix 40mg daily - LEAH wraps - See above 3. Iron deficiency anemia - S/p 2 doses venofer - Stared ferrous sulfate BID - Will transfuse for hgb <7 4. RAMY on CKD - Cr around baseline - On lasix 5. Acute gout - Improved s/p 2 doses 30mg - Resume daily prednisone 5mg daily - Allopurinol daily 6. DVT ppx - Heparin sq Visit type - Emergency Visit Emergency Visit: Yes ED Registration Date: 09/15/17 Care time: The patient presented to the Emergency Department on the above date and was hospitalized for further evaluation of their emergent condition. - New Patient This patient is new to me today: No - Critical Care Critical Care patient: No
--- NOTE | 2017-09-21 15:43 | PN ---
Progress Note, Physician History of Present Illness: doing well no new issues will check wounds tomorrow patient with no complaints - Current Medication List Current Medications: Active Medications Allopurinol (Zyloprim -) 100 mg PO BID [facility] Last Admin: 09/21/17 10:21 Dose: 100 mg Docusate Sodium (Colace -) 100 mg PO BID [facility] Last Admin: 09/21/17 10:20 Dose: 100 mg Ferrous Sulfate (Feosol -) 325 mg PO BID [facility] Last Admin: 09/21/17 10:21 Dose: 325 mg Folic Acid (Folic Acid -) 1 mg PO DAILY [facility] Last Admin: 09/21/17 10:21 Dose: 1 mg Furosemide (Lasix -) 40 mg PO DAILY [facility] Last Admin: 09/21/17 10:21 Dose: 40 mg Heparin Sodium (Porcine) (Heparin -) 5,000 unit SQ TID [facility] Last Admin: 09/21/17 14:36 Dose: 5,000 unit Clindamycin Phosphate (Cleocin 300 Mg Premix Ivpb) 300 mg in 50 mls @ 100 mls/ hr IVPB Q6H-IV [facility]; Protocol Last Admin: 09/21/17 14:38 Dose: 100 mls/hr Piperacillin Sod/Tazobactam (Sod 2.25 gm/ Dextrose) 50 mls @ 100 mls/hr IVPB Q8H-IV [facility]; Protocol Last Admin: 09/21/17 10:21 Dose: 100 mls/hr Prednisone (Deltasone -) 5 mg PO DAILY [facility] Last Admin: 09/21/17 10:21 Dose: 5 mg - Objective Vital Signs: Vital Signs Temperature 97.6 F 09/21/17 14:29 Pulse Rate 83 09/21/17 14:29 Respiratory Rate 20 09/21/17 14:29 Blood Pressure 132/61 09/21/17 14:29 O2 Sat by Pulse Oximetry (%) 99 09/21/17 09:00 Constitutional: Yes: No Distress, Calm Cardiovascular: Yes: Regular Rate and Rhythm Respiratory: Yes: Regular, CTA Bilaterally Gastrointestinal: Yes: Normal Bowel Sounds, Soft Musculoskeletal: Yes: WNL Extremities: Yes: Other Wound/Incision: Yes: Dressing Dry and Intact Neurological: Yes: Alert, Oriented Psychiatric: Yes: Alert, Oriented Labs: CBC, BMP 09/19/17 06:00 06/06/18 06:00 Assessment/Plan 57 year old with PMHx of HTN, gout, CKD, HTN, chronic venous stasis ulcers, B/l lower extremity cellulitis 2) Hyperkalemia 3) HTN 4) Chronic systolic and diastolic heart failure 5) Gout 6) CKD 7) Anemia of chronic disease plan continue abx wound care will check wound care rest as per the team
[2017-09-22] MEDS ORDERED: DEXTROSE 5%-WATER - 50 ML IVPB ONE ×3 (00:20→17:34)
[2017-09-22] MEDS ORDERED: PIPERACILLIN/TAZOBACTAM 2.25 GM VIAL IVPB ONE ×3 (00:20→17:34)
[2017-09-22] MEDS: PIPERACILLIN/TAZOB 2.25 GM 2.25 GM in DEXTROSE 5%-WATER - 50 ML IVPB SCH ×3 (00:59→17:41)
[2017-09-22] MEDS: CLINDAMYCIN 300 MG PREMIX IVPB 300 MG/50 ML BAG IVPB SCH ×4 (02:10→21:53)
[2017-09-22] MEDS: HEPARIN NA (PORCINE) 5,000 UNITS/ML 1ML VIAL SQ SCH ×2 (05:57→14:11)
[2017-09-22 08:23] LABS: ANION GAP 5 (8-16); BLOOD UREA NITROGEN 39 mg/dL (7-18); CALCIUM 7.9 mg/dL (8.5-10.1); CHLORIDE 110 mmol/L (98-107); CO2 26 mmol/L (21-32); GLUCOSE,RANDOM 78 mg/dL (74-106); POTASSIUM 4.6 mmol/L (3.5-5.1); SODIUM 141 mmol/L (136-145)
[2017-09-22 08:24] LABS: CREATININE 2.1 mg/dL (0.7-1.3)
--- NOTE | 2017-09-22 08:28 | PN ---
Progress Note (short form) - Note Progress Note: no complaints. denies CP, SOB, fever, chills, N/v/C/D. denies melena or BRBPR, hematuria, hemoptysis Current Medications Generic Name Dose Route Start Last Admin Trade Name Aliyah PRN Reason Stop Dose Admin Allopurinol 100 mg 09/15/17 22:00 09/21/17 21:09 Zyloprim - PO 100 mg BID MICHELLE Administration Docusate Sodium 100 mg 09/19/17 22:00 09/21/17 21:01 Colace - PO 100 mg BID MICHELLE Administration Ferrous Sulfate 325 mg 09/19/17 22:00 09/21/17 21:01 Feosol - PO 325 mg BID MICHELLE Administration Folic Acid 1 mg 09/16/17 10:00 09/21/17 10:21 Folic Acid - PO 1 mg DAILY MICHELLE Administration Furosemide 40 mg 09/16/17 10:00 09/21/17 10:21 Lasix - PO 40 mg DAILY MICHELLE Administration Heparin Sodium (Porcine) 5,000 unit 09/15/17 22:00 09/22/17 05:57 Heparin - SQ 5,000 unit TID MICHELLE Administration Clindamycin Phosphate 300 mg in 50 mls @ 100 mls/hr 09/15/17 16:45 09/22/17 02:10 Cleocin 300 Mg Premix Ivpb IVPB 100 mls/hr Q6H-IV MICHELLE Administration Protocol Piperacillin Sod/Tazobactam 50 mls @ 100 mls/hr 09/15/17 18:00 09/22/17 00:59 Sod 2.25 gm/ Dextrose IVPB 100 mls/hr Q8H-IV MICHELLE Administration Protocol Prednisone 5 mg 09/16/17 10:00 09/21/17 10:21 Deltasone - PO 5 mg DAILY MICHELLE Administration Last Vital Signs Temp Pulse Resp BP Pulse Ox 98.2 F 73 18 125/75 99 09/22/17 05:00 09/22/17 05:00 09/22/17 05:00 09/22/17 05:00 09/21/17 21:00 General NAD CV S1 s2 RRR no murmrur/rub/gallop Lungs CTA B/L no wheezing/rales/rhonchi Abdomen soft NT/ND obese Extremities chronic venous changes. wrapped in bandages. refused removal of wraps CMP Sodium 141 mmol/L (136-145) 09/22/17 07:40 Potassium 4.6 mmol/L (3.5-5.1) 09/22/17 07:40 Chloride 110 mmol/L (98-107) H 09/22/17 07:40 Carbon Dioxide 26 mmol/L (21-32) 09/22/17 07:40 Anion Gap 5 (8-16) L 09/22/17 07:40 BUN 39 mg/dL (7-18) H 09/22/17 07:40 Creatinine 2.1 mg/dL (0.7-1.3) H 09/22/17 07:40 Creat Clearance w eGFR 34.37 (>60) 09/18/17 06:20 Calcium 7.9 mg/dL (8.5-10.1) L 09/22/17 07:40 Total Bilirubin 0.3 mg/dL (0.2-1.0) D 09/18/17 06:20 AST 11 U/L (15-37) L 09/18/17 06:20 ALT 9 U/L (12-78) L 09/18/17 06:20 Alkaline Phosphatase 83 U/L (45-117) 09/18/17 06:20 Total Protein 6.5 g/dl (6.4-8.2) 09/18/17 06:20 Albumin 1.9 g/dl (3.4-5.0) L 09/18/17 06:20 A/P 57yo M with PMH HTN, gout, CKD, chronic venous statis presents to the ER from the wound center for B/L cellulitis 1. B/L cellulitis-afebrile. will not allow me to examine legs. cont zosyn/ Clinda day 8. Vascular surgery and ID on board. Cx negative 2. Hyperkalemia-resolved. 3. combined iron def anemia and anemia of chronic disease- s/p venofer x2 doses. started on oral iron supplements. no indication for txn this hospital stay. 4. CKD- at baseline 5. gout- on chronic prednisone. no current flares. as per pt his pmd told him to take daily. recommend to speak with PMD regarding this. will cont for now 6. HTN- controlled. on lasix 7. DVT ppx-hep sq 8. will d/w ID about plan about transition to oral abx. d/c planning pending ID recommendations. Visit type - Emergency Visit Emergency Visit: Yes ED Registration Date: 09/15/17 Care time: The patient presented to the Emergency Department on the above date and was hospitalized for further evaluation of their emergent condition. - New Patient This patient is new to me today: No - Critical Care Critical Care patient: No - Discharge Referral Referred to [facility] Med P.C.: No
[2017-09-22] MEDS ORDERED: PT OWN MED DRAWER 7, Y5N ONE ×3 (08:33→14:53)
[2017-09-22] MEDS: ALLOPURINOL 100 MG TABLET (FP) PO SCH ×2 (10:12→21:53)
[2017-09-22] MEDS: DOCUSATE SODIUM 100 MG CAPSULE (FP) PO SCH ×2 (10:12→21:53)
[2017-09-22] MEDS: FOLIC ACID 1 MG TABLET (FP) PO SCH (10:12)
[2017-09-22] MEDS: FERROUS SO4 325 MG TABLET (FP) PO SCH ×2 (10:12→21:53)
[2017-09-22] MEDS: predniSONE 5 MG TABLET (UD) PO SCH (10:12)
[2017-09-22] MEDS: FUROSEMIDE 40 MG TABLET (FP) PO SCH (10:12)
--- NOTE | 2017-09-22 12:38 | PN ---
Progress Note, Physician History of Present Illness: patient stable doing well dressing removed wounds looked at - Current Medication List Current Medications: Active Medications Allopurinol (Zyloprim -) 100 mg PO BID [facility] Last Admin: 09/22/17 10:12 Dose: 100 mg Docusate Sodium (Colace -) 100 mg PO BID [facility] Last Admin: 09/22/17 10:12 Dose: 100 mg Ferrous Sulfate (Feosol -) 325 mg PO BID [facility] Last Admin: 09/22/17 10:12 Dose: 325 mg Folic Acid (Folic Acid -) 1 mg PO DAILY [facility] Last Admin: 09/22/17 10:12 Dose: 1 mg Furosemide (Lasix -) 40 mg PO DAILY [facility] Last Admin: 09/22/17 10:12 Dose: 40 mg Heparin Sodium (Porcine) (Heparin -) 5,000 unit SQ TID [facility] Last Admin: 09/22/17 05:57 Dose: 5,000 unit Clindamycin Phosphate (Cleocin 300 Mg Premix Ivpb) 300 mg in 50 mls @ 100 mls/ hr IVPB Q6H-IV [facility]; Protocol Last Admin: 09/22/17 08:35 Dose: 100 mls/hr Piperacillin Sod/Tazobactam (Sod 2.25 gm/ Dextrose) 50 mls @ 100 mls/hr IVPB Q8H-IV [facility]; Protocol Last Admin: 09/22/17 10:12 Dose: 100 mls/hr Prednisone (Deltasone -) 5 mg PO DAILY [facility] Last Admin: 09/22/17 10:12 Dose: 5 mg - Objective Vital Signs: Vital Signs Temperature 98.3 F 09/22/17 09:00 Pulse Rate 77 09/22/17 09:00 Respiratory Rate 20 09/22/17 09:00 Blood Pressure 111/60 09/22/17 09:00 O2 Sat by Pulse Oximetry (%) 97 09/22/17 09:00 Constitutional: Yes: No Distress, Calm Eyes: Yes: Conjunctiva Clear Cardiovascular: Yes: Regular Rate and Rhythm Respiratory: Yes: Regular, CTA Bilaterally Gastrointestinal: Yes: Normal Bowel Sounds, Soft Musculoskeletal: Yes: Other Extremities: Yes: Erythema, Other Wound/Incision: Yes: Clean/Dry, Draining, Other Neurological: Yes: Alert, Oriented Psychiatric: Yes: Alert, Oriented Labs: CBC, BMP 09/19/17 06:09/22/17 07:40 Assessment/Plan 57 year old with PMHx of HTN, gout, CKD, HTN, chronic venous stasis ulcers, B/l lower extremity cellulitis 2) Hyperkalemia 3) HTN 4) Chronic systolic and diastolic heart failure 5) Gout 6) CKD 7) Anemia of chronic disease patients dressing removed wounds looked at.wounds dry some drainage noted from the post part of the wound plan continue abx through today patient can go home tomorrow after completing the last dose of iv abx today to be send home on doxy 100 mg bid for 10 days to follow in wound care and not to stop abx till the wound is seen by me in the wound care
[2017-09-23] MEDS ORDERED: PIPERACILLIN/TAZOBACTAM 2.25 GM VIAL IVPB ONE ×2 (02:49→09:40)
[2017-09-23] MEDS ORDERED: DEXTROSE 5%-WATER - 50 ML IVPB ONE ×2 (02:49→09:40)
[2017-09-23] MEDS ORDERED: PT OWN MED DRAWER 7, Y5N ONE ×2 (02:50→08:56)
[2017-09-23] MEDS: PIPERACILLIN/TAZOB 2.25 GM 2.25 GM in DEXTROSE 5%-WATER - 50 ML IVPB SCH ×2 (02:54→09:43)
[2017-09-23] MEDS: CLINDAMYCIN 300 MG PREMIX IVPB 300 MG/50 ML BAG IVPB SCH ×2 (02:55→09:43)
[2017-09-23 06:19] VITALS: BMI 34.3
[2017-09-23] MEDS: ALLOPURINOL 100 MG TABLET (FP) PO SCH (09:43)
[2017-09-23] MEDS: FOLIC ACID 1 MG TABLET (FP) PO SCH (09:43)
[2017-09-23] MEDS: predniSONE 5 MG TABLET (UD) PO SCH (09:43)
[2017-09-23] MEDS: FUROSEMIDE 40 MG TABLET (FP) PO SCH (09:43)
[2017-09-23] MEDS: FERROUS SO4 325 MG TABLET (FP) PO SCH (09:43)
[2017-09-23] MEDS: DOCUSATE SODIUM 100 MG CAPSULE (FP) PO SCH (09:43)
--- NOTE | 2017-09-23 11:33 | PN ---
Progress Note, Physician History of Present Illness: Pt seen and examined. Events noted. States he feels better, has no specific complaints. - Current Medication List Current Medications: Active Medications Allopurinol (Zyloprim -) 100 mg PO BID [facility] Last Admin: 09/23/17 09:43 Dose: 100 mg Docusate Sodium (Colace -) 100 mg PO BID [facility] Last Admin: 09/23/17 09:43 Dose: 100 mg Ferrous Sulfate (Feosol -) 325 mg PO BID [facility] Last Admin: 09/23/17 09:43 Dose: 325 mg Folic Acid (Folic Acid -) 1 mg PO DAILY [facility] Last Admin: 09/23/17 09:43 Dose: 1 mg Furosemide (Lasix -) 40 mg PO DAILY [facility] Last Admin: 09/23/17 09:43 Dose: 40 mg Clindamycin Phosphate (Cleocin 300 Mg Premix Ivpb) 300 mg in 50 mls @ 100 mls/ hr IVPB Q6H-IV [facility]; Protocol Last Admin: 09/23/17 09:43 Dose: 100 mls/hr Piperacillin Sod/Tazobactam (Sod 2.25 gm/ Dextrose) 50 mls @ 100 mls/hr IVPB Q8H-IV [facility]; Protocol Last Admin: 09/23/17 09:43 Dose: 100 mls/hr Prednisone (Deltasone -) 5 mg PO DAILY [facility] Last Admin: 09/23/17 09:43 Dose: 5 mg - Objective Vital Signs: Vital Signs Temperature 97.7 F 09/23/17 09:00 Pulse Rate 80 09/23/17 09:00 Respiratory Rate 18 09/23/17 09:00 Blood Pressure 141/89 09/23/17 09:00 O2 Sat by Pulse Oximetry (%) 98 09/23/17 09:00 Constitutional: Yes: No Distress, Calm Cardiovascular: Yes: Regular Rate and Rhythm Respiratory: Yes: Regular Gastrointestinal: Yes: Normal Bowel Sounds, Soft Wound/Incision: Yes: Other (B/L LE edema, venous stasis ulcers, dressing intact , NT) Labs: CBC, BMP 09/19/17 06:00 09/22/17 07:40 Problem List - Problems (1) Bilateral lower leg cellulitis Code(s): L03.116 - CELLULITIS OF LEFT LOWER LIMB; L03.115 - CELLULITIS OF RIGHT LOWER LIMB (2) Venous stasis ulcers of both lower extremities Code(s): I83.019 - VARICOSE VEINS OF RIGHT LOWER EXTREMITY W ULCER OF UNSP SITE ; I83.029 - VARICOSE VEINS OF LEFT LOWER EXTREMITY W ULCER OF UNSP SITE (3) Anemia Code(s): D64.9 - ANEMIA, UNSPECIFIED Assessment/Plan B/L LE cellulitis/venous stasis CKD CHF Anemia -- switch to po doxycycline, to continue for total 10 days -- needs wound care f/u as outpt pt currently stable
[2017-09-23] MEDS ORDERED: FERROUS SO4 325 MG TABLET (FP) PO SCH (11:52)
[2017-09-23 14:11] VITALS: BP 123/86; PULSE 74; TEMP 98
--- NOTE | 2017-09-23 14:32 | DS ---
Physical Exam: SUBJECTIVE: Patient seen and examined OBJECTIVE: Vital Signs Period Temp Pulse Resp BP Sys/[place] Pulse Ox Last 24 Hr 97.7 F-98.2 F 69-80 18-18 95-145/55-89 97-98 PHYSICAL EXAM GENERAL: The patient is awake, alert, and fully oriented, in no acute distress. HEAD: Normal with no signs of trauma. EYES: PERRL, extraocular movements intact, sclera anicteric, conjunctiva clear. ENT: Ears normal, nares patent, oropharynx clear without exudates, moist mucous membranes. NECK: Trachea midline, full range of motion, supple. LUNGS: Breath sounds equal, clear to auscultation bilaterally, no wheezes, no crackles, no accessory muscle use. HEART: Regular rate and rhythm, S1, S2 without murmur, rub or gallop. ABDOMEN: Soft, nontender, nondistended, normoactive bowel sounds, no guarding, no rebound, no hepatosplenomegaly, no masses. EXTREMITIES: 2+ pulses, warm, well-perfused, no edema. NEUROLOGICAL: Cranial nerves II through XII grossly intact. Normal speech, gait not observed. PSYCH: Normal mood, normal affect. SKIN: Warm, dry, normal turgor, no rashes or lesions noted. LABS HOSPITAL COURSE: Date of Admission:09/15/17 Date of Discharge: 09/23/17 Discharge Summary Reason For Visit: BILATERAL CELLULITIS OF LOWER LEG Current Active Problems Bilateral lower leg cellulitis (Acute) Condition: Improved - Instructions Diet, Activity, Other Instructions: A prescription has been sent to your pharmacy for doxycycline which is an antibiotic. Take this medication as directed and be sure to finish all the medication. You will continue to receive [facility] services for wound care. You should also continue to follow with Dr. Eric in the [facility]. Referrals: Pepito Eric MD [Staff Physician] - Disposition: HOME - Home Medications Comprehensive Discharge Medication List: Ambulatory Orders Allopurinol [Zyloprim -] 100 mg PO BID 11/21/14 Furosemide [Lasix] 40 mg PO DAILY 06/24/16 Folic Acid 1 mg PO DAILY 09/15/17 Prednisone 5 mg PO DAILY 09/15/17 Doxycycline Hyclate [Vibramycin -] 100 mg PO BID #20 capsule 09/23/17 - Discharge Referral Referred to [facility] Med P.C.: No
[2017-09-23] MEDS ORDERED: DOXYCYCLINE HYCLATE 100 MG CAPSULE PO SCH (18:00)
== END 2017-09-23 15:55 | disposition home or self-care (01) | DRG 603 ==
LOC: JER 10:24 → JERBED 13:38 → J7W 16:10
PROVIDERS: ADMIT Internal Medicine; ATTEND Nurse Practitioner Acute Care
DX: L03.115 Cellulitis of right lower limb (principal); I13.0 Hypertensive heart and chronic kidney disease with heart failure and stage 1 through stage 4 chronic kidney disease, or unspecified chronic kidney disease; I50.42 Chronic combined systolic (congestive) and diastolic (congestive) heart failure; N17.9 Acute kidney failure, unspecified; L03.116 Cellulitis of left lower limb; E87.5 Hyperkalemia; N18.9 Chronic kidney disease, unspecified; D63.1 Anemia in chronic kidney disease; M10.9 Gout, unspecified; I87.2 Venous insufficiency (chronic) (peripheral); D50.9 Iron deficiency anemia, unspecified; E83.51 Hypocalcemia; E83.42 Hypomagnesemia
CPT/HCPCS: 36415; 71045-TC-FY; 80048; 80053; 82272; 82728; 83540; 83550; 83735; 85025; 85027; 87040; 93005; 93010; 97116-GP; 97161-GP; 99282-25; G0463-25; J1644; J1756

== ENCOUNTER 2017-11-17 13:47 | Inpatient (IN) | payer BC, OTHER ==
--- NOTE | 2017-11-17 14:47 | PDOC ---
History of Present Illness - General Chief Complaint: Edema Stated Complaint: BILATERAL LEG WOUND Time Seen by Provider: 11/17/17 14:47 - History of Present Illness Initial Comments: Kamlesh Parker III is a 57yo man with a PMH of CHF, obesity, chronic anema, BLE lymphedema c/b chronic venous stasis ulcers who was sent to the ED by wound care due to positive wound cultures obtained on 11/10/17. He was seen today by Dr Thrasher and told that he would need IV antibiotics due to polymicrobial infection. Mr Parker reports that he has had leg swelling for many years and has frequent admissions for antibiotic treatment due to the wounds on his legs. He denies any new or unusual symptoms, and he specifically denies fevers, shaking chills, increased leg pain, increased drainage or bleeding from his wounds, unusual numbness/tingling in his legs, or exposed bone. He requests that the dressings not be removed from his legs. Past History - Past Medical History Allergies/Adverse Reactions: Allergies Allergy/AdvReac Type Severity Reaction Status Date / Time Egg Derived Allergy Unknown Verified 11/17/17 14:02 Yancey And Derivatives Allergy Verified 11/17/17 14:02 lactose AdvReac Verified 11/17/17 14:02 NKDA Allergy Uncoded 11/17/17 14:02 Home Medications: Ambulatory Orders Allopurinol [Zyloprim -] 100 mg PO BID 11/21/14 Furosemide [Lasix] 40 mg PO DAILY 06/24/16 Prednisone 5 mg PO DAILY 09/15/17 Anemia: No Asthma: No Cancer: No Cardiac Disorders: No CVA: No COPD: No CHF: Yes DVT: No Dementia: No Diabetes: No GI Disorders: No Disorders: No HTN: Yes Hypercholesterolemia: No Liver Disease: No Seizures: No Thyroid Disease: No Other medical history: BILATERAL LOWER LEG WOUNDS - Surgical History Abdominal Surgery: No Appendectomy: Yes Cardiac Surgery: No Cholecystectomy: No Lung Surgery: No Neurologic Surgery: No Orthopedic Surgery: No - Suicide/Smoking/Psychosocial Hx Smoking Status: No Smoking History: Never smoked Have you smoked in the past 12 months: No Number of Cigarettes Smoked Daily: 0 Hx Alcohol Use: No Drug/Substance Use Hx: No Substance Use Type: None Hx Substance Use Treatment: No Review of Systems - Review of Systems Comments:: General: No fevers, no chills, no weight or appetite change, no malaise HEENT: No changes in vision, no changes in hearing, no congestion, no sore throat CV: No chest pain, no palpitations. +h/o CHF, chronic BLE edema Pulm: No new SOB, no cough, no wheezing GI: No nausea or vomiting, no change in bowel habits, no melena : No frequency, no urgency, no dysuria Musc: No unusual joint or muscle pain, no recent injury Skin: +h/o chronic lymphedema, h/o chronic venous stasis ulcers Endo: No excessive thirst, no heat/cold intolerance Heme: No unusual bruising or bleeding, no swollen glands Neuro: No syncope, no numbness/tingling, no focal weakness Vasc: No claudication Psych: No recent change in mood, no SI or HI *Physical Exam - Vital Signs Last Vital Signs Temp Pulse Resp BP Pulse Ox 98.4 F 78 16 133/58 98 11/17/17 14:03 11/17/17 14:03 11/17/17 14:03 11/17/17 14:03 11/17/17 14:03 - Physical Exam Comments: General: Comfortable, no acute distress HEENT: PERRL, EOMI, MMM, voice normal, normal neck ROM Cards: RRR, no murmur appreciated Pulm: Comfortable on room air, No wheezing or crackles appreciated Abd: Soft, nontender, nondistended, obese abdomen : No CVA tenderness Ext: Atraumatic. BLE with significant edema distal to knee. Clean dressings and LEAH wraps in place, not removed per pt request. Some pitting edema visible proximal to dressings. No open wounds visible. BLE WWP. No crepitus noted. No TTP. Neuro: A&Ox3, CN grossly intact, normal speech, motor/sensory grossly intact and symmetric Psych: Mood appropriate to situation ED Treatment Course - LABORATORY CBC & Chemistry Diagram: 11/17/17 15:50 11/17/17 15:50 Medical Decision Making - Medical Decision Making 11/17/17 17:10 Kamlesh Parker is a 57yo man with a PMH of obesity, CHF, chronic anemia, BLE lymphedema c/b chronic venous stasis ulcers who presents to the ED due to cultures from 11/10/17 indicating polymycrobial infection of his chronic BLE wounds. He was seen by wound care and ID today and was told he will likely need antibiotics. - No new symptoms currently. No pain out of proportion or crepitus indicating nec fasc - Wounds not visualized, but pt reports no deep wounds tracking to bone, no significant change in pain or wound appearance - No fevers, chills, systemic symptoms that would indicate sepsis - CBC, CMP, coags, blood cultures, UA, urine culture, lactate, trop, CXR, EKG ordered - Will give vanc/zosyn for abx coverage of polymicrobial infection - No fluids given due to CHF and edema - Plan to admit for continued IV antibiotics. Admission discussed with Dr Borrego. Discussed with Dr Brandt. *DC/Admit/Observation/Transfer Diagnosis at time of Disposition: Venous stasis ulcers of both lower extremities - Discharge Dispostion Decision to Admit order: Yes - Referrals - Patient Instructions - Post Discharge Activity
[2017-11-17 16:26] LABS: VENOUS PC02 52.6 mmHg (38-52); VENOUS PH 7.28 (7.32-7.42); VENOUS PO2 38.7 mmHg (28-48)
[2017-11-17 16:31] LABS: BASO % 0.8 % (0-2.0); HEMATOCRIT 30.8 % (35.4-49); HEMOGLOBIN 9.7 GM/dL (11.7-16.9); LYMPH % 7.3 % (8-40); MCH 26.1 pg (25.7-33.7); MCHC 31.6 g/dl (32.0-35.9); MEAN CELL VOLUME 82.5 fl (80-96); MEAN PLT VOLUME 9.5 fl (7.5-11.1); MONO % 8.2 % (3.8-10.2); NEUT % 80.7 % (42.8-82.8); PLATELET COUNT 330 K/MM3 (134-434); RBC 3.74 M/mm3 (4.00-5.60); RDW 18.2 % (11.9-15.9); WHITE BLOOD COUNT 10.3 K/mm3 (4.0-10.0)
[2017-11-17 16:35] LABS: INR 1.23 (0.83-1.09); PROTHROMBIN TIME (PATIENT) 13.9 SEC (9.7-13.0)
[2017-11-17 16:38] LABS: ACTIVATED PTT 28.2 SECONDS (25.2-36.5)
[2017-11-17 16:55] LABS: ALBUMIN 2.2 g/dl (3.4-5.0); ALK PHOS 93 U/L (45-117); ANION GAP 9 (8-16); BILIRUBIN,TOTAL 0.5 mg/dL (0.2-1.0); BLOOD UREA NITROGEN 44 mg/dL (7-18); CALCIUM 8.1 mg/dL (8.5-10.1); CHLORIDE 112 mmol/L (98-107); CO2 24 mmol/L (21-32); CREATININE 2.6 mg/dL (0.7-1.3); GLUCOSE,RANDOM 87 mg/dL (74-106); POTASSIUM 4.1 mmol/L (3.5-5.1); SGOT/AST 16 U/L (15-37); SGPT/ALT 9 U/L (12-78); SODIUM 145 mmol/L (136-145)
[2017-11-17] MEDS ORDERED: PIPERACILLIN/TAZOB 4.5 GM 4.5 GM in DEXTROSE 5%-WATER 100 ML IVPB ONE (17:14)
[2017-11-17] MEDS ORDERED: VANCOMYCIN 1,500 MG in DEXTROSE 5%-WATER - 500 ML IVPB ONE (17:14)
[2017-11-17] MEDS ORDERED: PIPERACILLIN/TAZOB 4.5 GM 4.5 GM/100 ML BAG IVPB ONE (17:17)
--- NOTE | 2017-11-17 17:55 | HP ---
Admitting History and Physical - Primary Care Physician PCP: Tremaine Borrego - Admission History of Present Illness: Kamlesh Parker III is a 57yo man with a PMH of CHF, obesity, chronic anema, BLE lymphedema c/b chronic venous stasis ulcers who was sent to the ED by wound care due to positive wound cultures obtained on 11/10/17. He was seen today by Dr Thrasher and told that he would need IV antibiotics due to polymicrobial infection. Mr Parker reports that he has had leg swelling for many years and has frequent admissions for antibiotic treatment due to the wounds on his legs. He denies any new or unusual symptoms, and he specifically denies fevers, shaking chills, increased leg pain, increased drainage or bleeding from his wounds, unusual numbness/tingling in his legs, or exposed bone. He requests that the dressings not be removed from his legs. - Past Medical History Cardiovascular: Yes: CHF, HTN, Pulmonary Hypertension, Other Renal/: Yes: Renal Inusuff Musculoskeletal: Yes: Other - Smoking History Smoking history: Never smoked Have you smoked in the past 12 months: No Aproximately how many cigarettes per day: 0 - Alcohol/Substance Use Hx Alcohol Use: No History of Substance Use: reports: None - Social History History of Recent Travel: No Home Medications - Allergies Allergies/Adverse Reactions: Allergies Allergy/AdvReac Type Severity Reaction Status Date / Time Egg Derived Allergy Unknown Verified 11/17/17 14:02 Declo And Derivatives Allergy Verified 11/17/17 14:02 lactose AdvReac Verified 11/17/17 14:02 NKDA Allergy Uncoded 11/17/17 14:02 - Home Medications Home Medications: Ambulatory Orders Allopurinol [Zyloprim -] 100 mg PO BID 11/21/14 Furosemide [Lasix] 40 mg PO DAILY 06/24/16 Prednisone 5 mg PO DAILY 09/15/17 Physical Examination Vital Signs: Vital Signs Temperature 98.4 F 11/17/17 14:03 Pulse Rate 78 11/17/17 14:03 Respiratory Rate 16 11/17/17 14:03 Blood Pressure 133/58 11/17/17 14:03 O2 Sat by Pulse Oximetry (%) 98 11/17/17 14:03 Constitutional: Yes: No Distress HENT: Yes: Atraumatic Neck: Yes: Supple Cardiovascular: Yes: Regular Rate and Rhythm Respiratory: Yes: CTA Bilaterally Gastrointestinal: Yes: Normal Bowel Sounds Extremities: Yes: Other (b/l porfirio cellulitis) Edema: Yes Edema: RUE: 2+, LLE: 2+ Neurological: Yes: Alert, Oriented Labs: CBC, BMP 11/17/17 15:50 11/17/17 15:50 Problem List - Problems (1) Venous stasis ulcers of both lower extremities Assessment/Plan: on iv abx wound care, dressing change id on board Code(s): I83.019 - VARICOSE VEINS OF RIGHT LOWER EXTREMITY W ULCER OF UNSP SITE ; I83.029 - VARICOSE VEINS OF LEFT LOWER EXTREMITY W ULCER OF UNSP SITE (2) Diastolic CHF Assessment/Plan: on lasix Code(s): I50.30 - UNSPECIFIED DIASTOLIC (CONGESTIVE) HEART FAILURE Assessment/Plan Laboratory Tests 11/17/17 11/17/17 11/17/17 15:50 15:50 15:50 WBC 10.3 H RBC 3.74 L Hgb 9.7 L Hct 30.8 L D MCV 82.5 MCH 26.1 MCHC 31.6 L RDW 18.2 H Plt Count 330 D MPV 9.5 Absolute Neuts (auto) 8.3 Neutrophils % 80.7 Lymphocytes % 7.3 L D Monocytes % 8.2 Eosinophils % 3.0 Basophils % 0.8 Nucleated RBC % 0 PT with INR 13.90 H INR 1.23 H PTT (Actin FS) 28.2 VBG pH 7.28 L POC VBG pCO2 52.6 H POC VBG pO2 38.7 Mixed VBG HCO3 23.9 Sodium Potassium Chloride Carbon Dioxide Anion Gap BUN Creatinine Creat Clearance w eGFR Random Glucose Lactic Acid Calcium Total Bilirubin AST ALT Alkaline Phosphatase Troponin I Total Protein Albumin 11/17/17 11/17/17 11/17/17 15:50 15:50 15:50 WBC RBC Hgb Hct MCV MCH MCHC RDW Plt Count MPV Absolute Neuts (auto) Neutrophils % Lymphocytes % Monocytes % Eosinophils % Basophils % Nucleated RBC % PT with INR INR PTT (Actin FS) VBG pH POC VBG pCO2 POC VBG pO2 Mixed VBG HCO3 Sodium 145 Potassium 4.1 Chloride 112 H Carbon Dioxide 24 Anion Gap 9 BUN 44 H Creatinine 2.6 H Creat Clearance w eGFR 25.39 Random Glucose 87 Lactic Acid 1.2 Calcium 8.1 L Total Bilirubin 0.5 AST 16 D ALT 9 L Alkaline Phosphatase 93 Troponin I 0.14 H D Total Protein 8.0 Albumin 2.2 L Active Medications Generic Name Dose Route Start Last Admin Trade Name Aliyah PRN Reason Stop Dose Admin Vancomycin HCl 1,500 mg/ 500 mls @ 250 mls/hr 11/17/17 17:14 Dextrose IVPB 11/17/17 19:13 ONCE ONE Protocol Active Medications Generic Name Dose Route Start Last Admin Trade Name Aliyah PRN Reason Stop Dose Admin Allopurinol 100 mg 11/17/17 22:00 11/22/17 10:26 Zyloprim - PO 100 mg BID MICHELLE Administration Furosemide 40 mg 11/18/17 10:00 11/22/17 10:25 Lasix - PO 40 mg DAILY MICHELLE Administration Heparin Sodium (Porcine) 5,000 unit 11/17/17 22:00 11/22/17 10:24 Heparin - SQ 5,000 unit BID MICHELLE Administration Piperacillin Sod/Tazobactam 50 mls @ 100 mls/hr 11/17/17 21:00 11/22/17 15:37 Sod 2.25 gm/ Dextrose IVPB 100 mls/hr Q6H-IV MICHELLE Administration Protocol Vancomycin HCl 750 mg/ 250 mls @ 100 mls/hr 11/22/17 16:45 Dextrose IVPB Q24H MICHELLE Protocol Prednisone 5 mg 11/18/17 10:00 11/22/17 10:25 Deltasone - PO 5 mg DAILY MICHELLE Administration
--- NOTE | 2017-11-17 17:56 | CON.ID ---
Consult Consult Specialty:: infectious diseases Referred by:: Elmo Mariscal Reason for Consultation:: b/l non healing wounds. wound infection. failed treatment - History of Present Illness Chief Complaint: non healing wound History of Present Illness: 57yo man with a PMH of CHF, obesity, chronic anema, BLE lymphedema c/b chronic venous stasis ulcers who has been having this since a long time and who has failed treatment and continues to have bad wound infection and drainage from the wound with foul smell Both of his legs aer involved,according to the patient this is going on for more than months now. Patient has been coming to wound care center for a long time Mr Parker reports that he has had leg swelling for many years patient had increased drainage from the wound and wound cultures taken and patient is growing multiple organisms patient needs iv abx and is admitted for iv abx and wound care - History Source History Provided By: Patient Limitations to Obtaining History: No Limitations - Past Medical History Cardio/Vascular: Yes: CHF, HTN, Pulmonary Hypertension, Other Renal/: Yes: Renal Inusuff Musculoskeletal: Yes: Other Additional Medical History: chronic lymphedema sees Dr Eric at the wound clinic Admitted for increasing LE EDEMA - Alcohol/Substance Use Hx Alcohol Use: No History of Substance Use: reports: None - Smoking History Smoking history: Never smoked Have you smoked in the past 12 months: No Aproximately how many cigarettes per day: 0 - Social History Usual Living Arrangement: With Parent History of Recent Travel: No Home Medications - Allergies Allergies/Adverse Reactions: Allergies Allergy/AdvReac Type Severity Reaction Status Date / Time Egg Derived Allergy Unknown Verified 11/17/17 14:02 [place] And Derivatives Allergy Verified 11/17/17 14:02 lactose AdvReac Verified 11/17/17 14:02 NKDA Allergy Uncoded 11/17/17 14:02 - Home Medications Home Medications: Ambulatory Orders Allopurinol [Zyloprim -] 100 mg PO BID 11/21/14 Furosemide [Lasix] 40 mg PO DAILY 06/24/16 Prednisone 5 mg PO DAILY 09/15/17 Review of Systems - Review of Systems Constitutional: reports: No Symptoms Eyes: reports: No Symptoms HENT: reports: No Symptoms Neck: reports: No Symptoms Cardiovascular: reports: No Symptoms Respiratory: reports: No Symptoms Gastrointestinal: reports: No Symptoms Musculoskeletal: reports: Other Integumentary: reports: Erythema, Wound ( wounds all over the legs bi laterally with open wounds all over both legs till the knee joint from the ankle elephantiasis skin on the foot) Neurological: reports: No Symptoms Hematology/Lymphatic: reports: No Symptoms Psychiatric: reports: No Symptoms Physical Exam Vital Signs: Vital Signs Temperature 98.4 F 11/17/17 14:03 Pulse Rate 78 11/17/17 14:03 Respiratory Rate 16 11/17/17 14:03 Blood Pressure 133/58 11/17/17 14:03 O2 Sat by Pulse Oximetry (%) 98 11/17/17 14:03 Constitutional: Yes: Well Nourished, Calm, Mild Distress Eyes: Yes: Conjunctiva Clear HENT: Yes: Atraumatic, Normocephalic Neck: Yes: Supple, Trachea Midline Respiratory: Yes: Regular, CTA Bilaterally Gastrointestinal: Yes: Normal Bowel Sounds, Soft Musculoskeletal: Yes: Other Extremities: Yes: Other ( wounds all over the legs bi laterally with open wounds all over both legs till the knee joint from the ankle elephantiasis skin on the foot) Integumentary: Yes: Other ( wounds all over the legs bi laterally with open wounds all over both legs till the knee joint from the ankle elephantiasis skin on the foot) Wound/Incision: Yes: Other ( wounds all over the legs bi laterally with open wounds all over both legs till the knee joint from the ankle elephantiasis skin on the foot) Neurological: Yes: Alert, Oriented Psychiatric: Yes: Alert, Oriented Labs: CBC, BMP 11/17/17 15:50 11/17/17 15:50 Imaging - Results Chest X-ray: Report Reviewed, Image Reviewed Assessment/Plan Problem List - Problems (1) Venous stasis ulcers of both lower extremities Code(s): I83.019 - VARICOSE VEINS OF RIGHT LOWER EXTREMITY W ULCER OF UNSP SITE ; I83.029 - VARICOSE VEINS OF LEFT LOWER EXTREMITY W ULCER OF UNSP SITE (2) Diastolic CHF Code(s): I50.30 - UNSPECIFIED DIASTOLIC (CONGESTIVE) HEART FAILURE 3 htn 4 wound infection plan will start patient on zosyn wound care rest continue current mgmt patient will need abx for some time
--- NOTE | 2017-11-17 18:18 | PDOC ---
Attending Attestation - ED Attending Attestation I have performed the following: I have examined & evaluated the patient, The case was reviewed & discussed with the resident, I agree w/resident's findings & plan, Exceptions are as noted - Physicial Exam PE: 11/17/17 18:52 awake alert lungs clear heart rrr no mrg. abd soft obese. legs bilat brawning edema and erythema. dressing to mid bella. drainage on bandages. 1+ dp/ pt pulses bilaterally. nuero awake alert and oriented x 3. - Medical Decision Making 11/17/17 18:16 57 yo male with h/o chronic venous stasis ulcers, here with c/o worsening leg swelling, drainage from lower leg wound, cultures from office positive for infection. denies f/c no other comlaints. is ambulatory has pain with ambulation. differential diagnosis includes osteo, cellultiis, sepsis. plan labs cultures lactate. pt has palp pulses bilat fee, warm and well perfused. will admit for iv antiobiotics, and r/o osteomyelitis. <Maxine Brandt - Last Filed: 11/17/17 18:52> - HPI HPI: 11/17/17 19:02 The patient is a 57 year old male, with a significant PMH of obesity, chronic anemia, CHF, BLE lymphedema c/b chronic venous stasis ulcers who was sent to the ED by wound care due to positive wound cultures received on 11/10/17. The patient states that he has had frequent admission for antibiotic treatment secondary to the wounds and swelling on his legs. He mentioned he saw Dr. Thrasher today and was told he would need IV antibiotics secondary to polymicrobial infection. The patient denies any numbness and tingling to legs. The patient denies increase bleeding from his wound, odor or discharge. Denies fever, chills, nausea, vomit, diarrhea and constipation. Denies dysuria, frequency, urgency and hematuria. Allergies: NKDA Past surgical history: Appendectomy Social history: None reported PCP: None reported Documentation prepared by Lissa Inman, acting as biomedical scientist for Maxine Brandt MD. <Lissa Inman - Last Filed: 11/17/17 19:04> Heart Score/ECG Review #1 General ECG Interpretation: Sinus Rhythm (82), Normal Rate, Normal Intervals, No acute ischemic changes <Maxine Brandt - Last Filed: 11/17/17 18:52>
[2017-11-17] MEDS ORDERED: PIPERACILLIN/TAZOBACTAM 2.25 GM VIAL IVPB ONE (21:53)
[2017-11-17] MEDS ORDERED: DEXTROSE 5%-WATER - 50 ML IVPB ONE (21:53)
[2017-11-17] MEDS: HEPARIN NA (PORCINE) 5,000 UNITS/ML 1ML VIAL SQ SCH (22:31)
[2017-11-17] MEDS: ALLOPURINOL 100 MG TABLET (FP) PO SCH (22:31)
[2017-11-17] MEDS: PIPERACILLIN/TAZOB 2.25 GM 2.25 GM in DEXTROSE 5%-WATER - 50 ML IVPB SCH (22:31)
[2017-11-17 22:39] LABS: URINE APPEARANCE CLEAR; URINE BILIRUBIN NEGATIVE (<2.0 mg/dL); URINE COLOR YELLOW; URINE GLUCOSE (UA) NEGATIVE (NEGATIVE); URINE KETONE NEGATIVE (NEGATIVE); URINE NITRITE NEGATIVE (NEGATIVE); URINE PROTEIN NEGATIVE (NEGATIVE); URINE UROBILINOGEN NEGATIVE mg/dL (0.2-1.0)
[2017-11-17 22:40] LABS: URINE LEUK ESTERASE 1+ (NEGATIVE)
[2017-11-17 22:42] LABS: EPI CELLS RARE /HPF (FEW); GRANULAR CASTS 1 /lpf; URINE MUCUS RARE
[2017-11-18] MEDS ORDERED: DEXTROSE 5%-WATER - 50 ML IVPB ONE ×4 (02:59→20:55)
[2017-11-18] MEDS ORDERED: PIPERACILLIN/TAZOBACTAM 2.25 GM VIAL IVPB ONE ×4 (02:59→20:54)
[2017-11-18] MEDS: PIPERACILLIN/TAZOB 2.25 GM 2.25 GM in DEXTROSE 5%-WATER - 50 ML IVPB SCH ×4 (03:31→21:30)
[2017-11-18 08:16] LABS: BASO % 1.7 % (0-2.0); EOS % 4.7 % (0-4.5); HEMATOCRIT 26.1 % (35.4-49); HEMOGLOBIN 8.3 GM/dL (11.7-16.9); LYMPH % 8.5 % (8-40); MCH 26.4 pg (25.7-33.7); MCHC 31.8 g/dl (32.0-35.9); MEAN CELL VOLUME 83.1 fl (80-96); MEAN PLT VOLUME 9.6 fl (7.5-11.1); MONO % 9.8 % (3.8-10.2); NEUT % 75.3 % (42.8-82.8); PLATELET COUNT 251 K/MM3 (134-434); RBC 3.14 M/mm3 (4.00-5.60); RDW 18.3 % (11.9-15.9)
[2017-11-18 08:47] LABS: ALBUMIN 1.8 g/dl (3.4-5.0); ANION GAP 9 (8-16); BLOOD UREA NITROGEN 41 mg/dL (7-18); CALCIUM 7.8 mg/dL (8.5-10.1); CHLORIDE 111 mmol/L (98-107); CO2 24 mmol/L (21-32); GLUCOSE,RANDOM 83 mg/dL (74-106); POTASSIUM 3.7 mmol/L (3.5-5.1); SODIUM 144 mmol/L (136-145)
[2017-11-18 08:51] LABS: ALK PHOS 70 U/L (45-117); BILIRUBIN,TOTAL 0.5 mg/dL (0.2-1.0); CREATININE 2.2 mg/dL (0.7-1.3); SGOT/AST 11 U/L (15-37); SGPT/ALT 9 U/L (12-78); TOT PROT 6.5 g/dl (6.4-8.2)
[2017-11-18] MEDS: predniSONE 5 MG TABLET (UD) PO SCH (09:07)
[2017-11-18] MEDS: FUROSEMIDE 40 MG TABLET (FP) PO SCH (09:07)
[2017-11-18] MEDS: HEPARIN NA (PORCINE) 5,000 UNITS/ML 1ML VIAL SQ SCH ×2 (09:07→21:30)
[2017-11-18] MEDS: ALLOPURINOL 100 MG TABLET (FP) PO SCH ×2 (09:07→21:30)
--- NOTE | 2017-11-18 09:15 | EKG ---
Test Reason : Blood Pressure : / mmHG Vent. Rate : 082 BPM Atrial Rate : 082 BPM P-R Int : 190 ms QRS Dur : 104 ms QT Int : 422 ms P-R-T Axes : 073 -35 076 degrees QTc Int : 493 ms SINUS RHYTHM WITH MARKED SINUS ARRHYTHMIA LEFT AXIS DEVIATION NONSPECIFIC T WAVE ABNORMALITY ABNORMAL ECG WHEN COMPARED WITH ECG OF 21-SEP-2017 08:32, NO SIGNIFICANT CHANGE WAS FOUND Confirmed by SELENE MURPHY, RIVAS ([id number]) on 11/18/2017 9:14:55 AM Referred By: Confirmed By:RIVAS MORTON MD
--- NOTE | 2017-11-18 09:26 | PN ---
Progress Note, Physician History of Present Illness: Infectious Disease Progress note: Pt seen and examined. Events reviewed. He feels generally well, denies pain in LE. Tolerating antibiotics. No specific complaints. - Current Medication List Current Medications: Active Medications Allopurinol (Zyloprim -) 100 mg PO BID [facility] Last Admin: 11/18/17 09:07 Dose: 100 mg Furosemide (Lasix -) 40 mg PO DAILY [facility] Last Admin: 11/18/17 09:07 Dose: 40 mg Heparin Sodium (Porcine) (Heparin -) 5,000 unit SQ BID [facility] Last Admin: 11/18/17 09:07 Dose: 5,000 unit Piperacillin Sod/Tazobactam (Sod 2.25 gm/ Dextrose) 50 mls @ 100 mls/hr IVPB Q6H-IV [facility]; Protocol Last Admin: 11/18/17 09:06 Dose: 100 mls/hr Prednisone (Deltasone -) 5 mg PO DAILY [facility] Last Admin: 11/18/17 09:07 Dose: 5 mg - Objective Vital Signs: Vital Signs Temperature 97.6 F 11/18/17 06:28 Pulse Rate 82 11/18/17 06:28 Respiratory Rate 18 11/18/17 06:28 Blood Pressure 114/85 11/18/17 06:28 O2 Sat by Pulse Oximetry (%) 94 L 11/17/17 21:14 Constitutional: Yes: No Distress Cardiovascular: Yes: Regular Rate and Rhythm Respiratory: Yes: Regular Gastrointestinal: Yes: Normal Bowel Sounds, Soft Edema: Yes Edema: LLE: 3+, RLE: 3+ Integumentary: Yes: Erythema, Other (multiple b/l LE venous stasis ulcers) Wound/Incision: Yes: Dressing Dry and Intact Neurological: Yes: Alert, Oriented Labs: CBC, BMP 11/18/17 07:45 11/18/17 07:45 INR, PTT INR 1.23 (0.83-1.09) H 11/17/17 15:50 Blood and Urine cultures pending 06/2017 LE wound cultures: +MRSA, Pseudomonas, Strep, Proteus Problem List - Problems (1) Venous stasis ulcers of both lower extremities Code(s): I83.019 - VARICOSE VEINS OF RIGHT LOWER EXTREMITY W ULCER OF UNSP SITE ; I83.029 - VARICOSE VEINS OF LEFT LOWER EXTREMITY W ULCER OF UNSP SITE (2) Bilateral lower leg cellulitis Code(s): L03.116 - CELLULITIS OF LEFT LOWER LIMB; L03.115 - CELLULITIS OF RIGHT LOWER LIMB (3) Diastolic CHF Code(s): I50.30 - UNSPECIFIED DIASTOLIC (CONGESTIVE) HEART FAILURE (4) Lymphedema of both lower extremities Code(s): I89.0 - LYMPHEDEMA, NOT ELSEWHERE CLASSIFIED (5) Morbid obesity Code(s): E66.01 - MORBID (SEVERE) OBESITY DUE TO EXCESS CALORIES (6) Renal insufficiency Code(s): N28.9 - DISORDER OF KIDNEY AND URETER, UNSPECIFIED (7) Congestive heart failure Code(s): I50.9 - HEART FAILURE, UNSPECIFIED Assessment/Plan 57 y.o. male with PMH of LE chronic non-healing venous stasis ulcers with lymphedema presenting with increased foul smelling ulcers Infected B/L LE venous stasis ulcers LE lymphedema CHF Anemia CKD -- previous wound cultures reviewed -- continue Zosyn, will add Vancomycin -- monitor renal function closely, Vancomycin Trough prior to 4th dose -- continue wound care
--- NOTE | 2017-11-18 16:48 | PN ---
Progress Note, Physician History of Present Illness: No new complaints - Current Medication List Current Medications: Active Medications Allopurinol (Zyloprim -) 100 mg PO BID [facility]S [facility]CLUDE 234 BEDS AT [facility] Last Admin: 11/18/17 09:07 Dose: 100 mg Furosemide (Lasix -) 40 mg PO DAILY COUNTS INCLUDE 234 BEDS AT THE [facility] Last Admin: 11/18/17 09:07 Dose: 40 mg Heparin Sodium (Porcine) (Heparin -) 5,000 unit SQ BID COUNTS INCLUDE 234 BEDS AT THE [facility] Last Admin: 11/18/17 09:07 Dose: 5,000 unit Piperacillin Sod/Tazobactam (Sod 2.25 gm/ Dextrose) 50 mls @ 100 mls/hr IVPB Q6H-IV [facility]; Protocol Last Admin: 11/18/17 14:47 Dose: 100 mls/hr Vancomycin HCl (Vancomycin 1 Gm Premix -) 1 gm in 200 mls @ 133.333 mls/hr IVPB DAILY@1900 COUNTS INCLUDE 234 BEDS AT THE [facility]; Protocol Prednisone (Deltasone -) 5 mg PO DAILY COUNTS INCLUDE 234 BEDS AT THE [facility] Last Admin: 11/18/17 09:07 Dose: 5 mg - Objective Vital Signs: Vital Signs Temperature 98.2 F 11/18/17 14:47 Pulse Rate 84 11/18/17 14:47 Respiratory Rate 18 11/18/17 14:47 Blood Pressure 116/61 11/18/17 14:47 O2 Sat by Pulse Oximetry (%) 96 11/18/17 09:00 Neck: Yes: WNL, Supple Cardiovascular: Yes: WNL, Regular Rate and Rhythm Respiratory: Yes: WNL, Regular, CTA Bilaterally Gastrointestinal: Yes: WNL, Normal Bowel Sounds, Soft Extremities: Yes: Other (Lymphedema w/ venous stasis ulcers B/L) Edema: LLE: 2+, RLE: 2+ Labs: CBC, BMP 11/18/17 07:45 11/18/17 07:45 INR, PTT INR 1.23 (0.83-1.09) H 11/17/17 15:50 Problem List - Problems (1) Venous stasis ulcers of both lower extremities Assessment/Plan: Cont IV zosyn/vanco Blood cultures remain negative Code(s): I83.019 - VARICOSE VEINS OF RIGHT LOWER EXTREMITY W ULCER OF UNSP SITE ; I83.029 - VARICOSE VEINS OF LEFT LOWER EXTREMITY W ULCER OF UNSP SITE (2) Diastolic CHF Assessment/Plan: Cont lasix Monitor electrolytes Code(s): I50.30 - UNSPECIFIED DIASTOLIC (CONGESTIVE) HEART FAILURE (3) Lymphedema Code(s): I89.0 - LYMPHEDEMA, NOT ELSEWHERE CLASSIFIED (4) Anemia Assessment/Plan: Due to chronic dz Code(s): D64.9 - ANEMIA, UNSPECIFIED
[2017-11-18] MEDS: VANCOMYCIN 1 GM PREMIX - 1 GM/200 ML BAG IVPB SCH (18:19)
[2017-11-19] MEDS ORDERED: PIPERACILLIN/TAZOBACTAM 2.25 GM VIAL IVPB ONE ×4 (01:27→21:27)
[2017-11-19] MEDS ORDERED: DEXTROSE 5%-WATER - 50 ML IVPB ONE ×4 (01:27→21:28)
[2017-11-19] MEDS: PIPERACILLIN/TAZOB 2.25 GM 2.25 GM in DEXTROSE 5%-WATER - 50 ML IVPB SCH ×4 (02:29→21:38)
[2017-11-19] MEDS: HEPARIN NA (PORCINE) 5,000 UNITS/ML 1ML VIAL SQ SCH ×2 (09:17→21:38)
[2017-11-19] MEDS: predniSONE 5 MG TABLET (UD) PO SCH (09:17)
[2017-11-19] MEDS: ALLOPURINOL 100 MG TABLET (FP) PO SCH ×2 (09:17→21:38)
[2017-11-19] MEDS: FUROSEMIDE 40 MG TABLET (FP) PO SCH (09:17)
--- NOTE | 2017-11-19 12:58 | PN ---
Progress Note, Physician History of Present Illness: Infectious Disease Progress note: Pt is alert, afebrile. Denies pain. No new complaints. - Current Medication List Current Medications: Active Medications Allopurinol (Zyloprim -) 100 mg PO BID [facility] Last Admin: 11/19/17 09:17 Dose: 100 mg Furosemide (Lasix -) 40 mg PO DAILY [facility] Last Admin: 11/19/17 09:17 Dose: 40 mg Heparin Sodium (Porcine) (Heparin -) 5,000 unit SQ BID [facility] Last Admin: 11/19/17 09:17 Dose: 5,000 unit Piperacillin Sod/Tazobactam (Sod 2.25 gm/ Dextrose) 50 mls @ 100 mls/hr IVPB Q6H-IV [facility]; Protocol Last Admin: 11/19/17 09:17 Dose: 100 mls/hr Vancomycin HCl (Vancomycin 1 Gm Premix -) 1 gm in 200 mls @ 133.333 mls/hr IVPB DAILY@1900 [facility]; Protocol Last Admin: 11/18/17 18:19 Dose: 133.333 mls/hr Prednisone (Deltasone -) 5 mg PO DAILY [facility] Last Admin: 11/19/17 09:17 Dose: 5 mg - Objective Vital Signs: Vital Signs Temperature 98.4 F 11/19/17 05:25 Pulse Rate 76 11/19/17 05:25 Respiratory Rate 20 11/19/17 05:25 Blood Pressure 128/68 11/19/17 05:25 O2 Sat by Pulse Oximetry (%) 96 11/19/17 09:00 Constitutional: Yes: No Distress, Calm Cardiovascular: Yes: Regular Rate and Rhythm Respiratory: Yes: Regular Gastrointestinal: Yes: Normal Bowel Sounds, Soft Genitourinary: Yes: WNL Extremities: Yes: Other (b/l LE lymphedema, + ulcers with mod drainage) Edema: LLE: 3+, RLE: 3+ Neurological: Yes: Alert, Oriented Labs: CBC, BMP 11/18/17 07:45 11/18/17 07:45 INR, PTT INR 1.23 (0.83-1.09) H 11/17/17 15:50 Problem List - Problems (1) Venous stasis ulcers of both lower extremities Code(s): I83.019 - VARICOSE VEINS OF RIGHT LOWER EXTREMITY W ULCER OF UNSP SITE ; I83.029 - VARICOSE VEINS OF LEFT LOWER EXTREMITY W ULCER OF UNSP SITE (2) Bilateral lower leg cellulitis Code(s): L03.116 - CELLULITIS OF LEFT LOWER LIMB; L03.115 - CELLULITIS OF RIGHT LOWER LIMB (3) Diastolic CHF Code(s): I50.30 - UNSPECIFIED DIASTOLIC (CONGESTIVE) HEART FAILURE (4) Lymphedema of both lower extremities Code(s): I89.0 - LYMPHEDEMA, NOT ELSEWHERE CLASSIFIED (5) Morbid obesity Code(s): E66.01 - MORBID (SEVERE) OBESITY DUE TO EXCESS CALORIES (6) Renal insufficiency Code(s): N28.9 - DISORDER OF KIDNEY AND URETER, UNSPECIFIED (7) Congestive heart failure Code(s): I50.9 - HEART FAILURE, UNSPECIFIED Assessment/Plan 57 y.o. male with PMH of LE chronic non-healing venous stasis ulcers with lymphedema presenting with increased foul smelling ulcers from legs Infected B/L LE venous stasis ulcers LE lymphedema CHF Anemia CKD -- previous wound cultures reviewed - polymicrobial including pseudomonas/MRSA -- continue Zosyn and Vancomycin - repeat bmp -- Vancomycin Trough prior to 11/21/17 dose -- needs dressing changes/wound care
--- NOTE | 2017-11-19 16:09 | PN ---
Progress Note, Physician History of Present Illness: No new complaints - Current Medication List Current Medications: Active Medications Allopurinol (Zyloprim -) 100 mg PO BID COUNTS INCLUDE 234 BEDS AT THE [facility] Last Admin: 11/19/17 09:17 Dose: 100 mg Furosemide (Lasix -) 40 mg PO DAILY COUNTS INCLUDE 234 BEDS AT THE [facility] Last Admin: 11/19/17 09:17 Dose: 40 mg Heparin Sodium (Porcine) (Heparin -) 5,000 unit SQ BID COUNTS INCLUDE 234 BEDS AT THE [facility] Last Admin: 11/19/17 09:17 Dose: 5,000 unit Piperacillin Sod/Tazobactam (Sod 2.25 gm/ Dextrose) 50 mls @ 100 mls/hr IVPB Q6H-IV [facility]; Protocol Last Admin: 11/19/17 15:14 Dose: 100 mls/hr Vancomycin HCl (Vancomycin 1 Gm Premix -) 1 gm in 200 mls @ 133.333 mls/hr IVPB DAILY@1900 COUNTS INCLUDE 234 BEDS AT THE [facility]; Protocol Last Admin: 11/18/17 18:19 Dose: 133.333 mls/hr Prednisone (Deltasone -) 5 mg PO DAILY COUNTS INCLUDE 234 BEDS AT THE [facility] Last Admin: 11/19/17 09:17 Dose: 5 mg - Objective Vital Signs: Vital Signs Temperature 97.6 F 11/19/17 15:48 Pulse Rate 85 11/19/17 15:48 Respiratory Rate 20 11/19/17 15:48 Blood Pressure 144/84 11/19/17 15:48 O2 Sat by Pulse Oximetry (%) 96 11/19/17 09:00 Constitutional: Yes: Well Nourished Neck: Yes: WNL, Supple Cardiovascular: Yes: WNL, Regular Rate and Rhythm Respiratory: Yes: WNL, Regular, CTA Bilaterally Gastrointestinal: Yes: WNL, Normal Bowel Sounds, Soft Extremities: Yes: Other (Lymphedema b/l Chronic venous stasis w/ ulcers) Edema: LLE: 2+, RLE: 2+ Labs: CBC, BMP 11/18/17 07:45 11/18/17 07:45 INR, PTT INR 1.23 (0.83-1.09) H 11/17/17 15:50 Problem List - Problems (1) Venous stasis ulcers of both lower extremities Assessment/Plan: Cont IV zosyn/vanco Will get vascular surgery consult for wound care Code(s): I83.019 - VARICOSE VEINS OF RIGHT LOWER EXTREMITY W ULCER OF UNSP SITE ; I83.029 - VARICOSE VEINS OF LEFT LOWER EXTREMITY W ULCER OF [facility] SITE (2) Diastolic CHF Assessment/Plan: Cont lasix Monitor electrolytes Code(s): I50.30 - UNSPECIFIED DIASTOLIC (CONGESTIVE) HEART FAILURE (3) Lymphedema of both lower extremities Code(s): I89.0 - LYMPHEDEMA, NOT ELSEWHERE CLASSIFIED (4) Anemia Assessment/Plan: Due to chronic dz Code(s): D64.9 - ANEMIA, UNSPECIFIED
[2017-11-19] MEDS: VANCOMYCIN 1 GM PREMIX - 1 GM/200 ML BAG IVPB SCH (18:17)
[2017-11-20] MEDS ORDERED: PIPERACILLIN/TAZOBACTAM 2.25 GM VIAL IVPB ONE ×4 (02:37→20:31)
[2017-11-20] MEDS ORDERED: DEXTROSE 5%-WATER - 50 ML IVPB ONE ×4 (02:37→20:31)
[2017-11-20] MEDS: PIPERACILLIN/TAZOB 2.25 GM 2.25 GM in DEXTROSE 5%-WATER - 50 ML IVPB SCH ×4 (03:00→21:09)
[2017-11-20 07:10] LABS: BASO % 1.2 % (0-2.0); EOS % 6.4 % (0-4.5); HEMATOCRIT 24.5 % (35.4-49); HEMOGLOBIN 7.8 GM/dL (11.7-16.9); LYMPH % 11.4 % (8-40); MCH 26.5 pg (25.7-33.7); MEAN CELL VOLUME 82.9 fl (80-96); MEAN PLT VOLUME 9.1 fl (7.5-11.1); MONO % 10.3 % (3.8-10.2); NEUT % 70.7 % (42.8-82.8); PLATELET COUNT 240 K/MM3 (134-434); RBC 2.96 M/mm3 (4.00-5.60)
[2017-11-20 07:57] LABS: CALCIUM 7.6 mg/dL (8.5-10.1); CHLORIDE 111 mmol/L (98-107); SODIUM 145 mmol/L (136-145)
[2017-11-20 08:01] LABS: ALBUMIN 1.7 g/dl (3.4-5.0); ALK PHOS 67 U/L (45-117); ANION GAP 8 (8-16); BILIRUBIN,TOTAL 0.3 mg/dL (0.2-1.0); BLOOD UREA NITROGEN 41 mg/dL (7-18); CO2 26 mmol/L (21-32); CREATININE 2.2 mg/dL (0.7-1.3); GLUCOSE,RANDOM 81 mg/dL (74-106); SGOT/AST 11 U/L (15-37); SGPT/ALT 9 U/L (12-78); TOT PROT 6.4 g/dl (6.4-8.2)
[2017-11-20] MEDS: FUROSEMIDE 40 MG TABLET (FP) PO SCH (09:40)
[2017-11-20] MEDS: ALLOPURINOL 100 MG TABLET (FP) PO SCH ×2 (09:40→21:10)
[2017-11-20] MEDS: predniSONE 5 MG TABLET (UD) PO SCH (09:41)
[2017-11-20] MEDS: HEPARIN NA (PORCINE) 5,000 UNITS/ML 1ML VIAL SQ SCH ×2 (09:41→21:10)
--- NOTE | 2017-11-20 11:13 | CONSULT ---
- Consultation REQUESTING PROVIDER: Dr Rodrigez CONSULT REQUEST: We have been asked to surgically evaluate this patient for his bilateral venous stasis ulcers. PCP:Tremaine Borrego HISTORY OF PRESENT ILLNESS: 57yo man followed by Dr. Eric at the wound care clinic with a PMH of CHF, obesity, chronic anema, B/L LE lymphedema with chronic venous stasis ulcers/ wound infections with increased drainage and recent cultures with polymicrobial growth admitted for IV ABX. Patient states he has been having dressing changes at home every other day. He denies any pain, fever, chills, SOB, cp, or general malaise associated with this admission. PMHx: CHF, obesity, chronic anema, B/L LE lymphedema PSHx: Abdominal Surgery: No Appendectomy: Yes Cardiac Surgery: No Cholecystectomy: No Lung Surgery: No Neurologic Surgery: No Orthopedic Surgery: No Home Medications Medication Instructions Recorded Allopurinol [Zyloprim -] 100 mg PO BID 11/21/14 Furosemide [Lasix] 40 mg PO DAILY 06/24/16 Prednisone 5 mg PO DAILY 09/15/17 Allergies Allergy/AdvReac Type Severity Reaction Status Date / Time Egg Derived Allergy Unknown Verified 11/17/17 14:02 [place] And Derivatives Allergy Verified 11/17/17 14:02 lactose AdvReac Verified 11/17/17 14:02 NKDA Allergy Uncoded 11/17/17 14:02 REVIEW OF SYSTEMS: CONSTITUTIONAL: Absent: fever, chills, diaphoresis, generalized weakness, malaise, loss of appetite, weight change CARDIOVASCULAR: Absent: chest pain, syncope, palpitations RESPIRATORY: Absent: cough, shortness of breath, wheezing, GASTROINTESTINAL: Absent: abdominal pain, abdominal distension, nausea GENITOURINARY: Absent: dysuria, frequency, urgency, MUSCULOSKELETAL: Absent: myalgia, arthralgia, joint swelling, back pain, neck pain SKIN: + chronic ckin changes, circumferential ulceration b/l LE NEUROLOGIC: Absent: headache, focal weakness, seizure, mental status changes, PSYCHIATRIC: Absent: suicidal or homicidal ideation, hallucinations. PHYSICAL EXAM: GENERAL: Awake, alert, and fully oriented, in no acute distress. HEAD: Normal with no signs of trauma. EYES: , sclera anicteric, conjunctiva clear. LUNGS:unlabored resp on RA, No accessory muscle use. LOWER EXTREMITIES: Chronic skin changes throughout extending from Knee down throughout feet, Circumferential venous stasis ulcerations with beefy red base, some fibrinous exudate seen in several areas over b/l LE with R>L with no foul smell, bogginess or evidence of soft tissue collection, small ulceration seen at left lateral knee-clean margins and no active d/c. 1+ pulses, and b/l feet warm, well-perfused. No calf tenderness. NEUROLOGICAL: Normal speech, gait not observed. PSYCH: Cooperative. Good eye contact. Appropriate mood and affect. Vital Signs Temperature 98.0 F 11/20/17 05:12 Pulse Rate 81 11/20/17 05:12 Respiratory Rate 20 11/20/17 05:12 Blood Pressure 130/76 11/20/17 05:12 O2 Sat by Pulse Oximetry (%) 96 11/19/17 21:00 Lab Results WBC 7.0 K/mm3 (4.0-10.0) 11/20/17 06:10 RBC 2.96 M/mm3 (4.00-5.60) L 11/20/17 06:10 Hgb 7.8 GM/dL (11.7-16.9) L 11/20/17 06:10 Hct 24.5 % (35.4-49) L 11/20/17 06:10 MCV 82.9 fl (80-96) 11/20/17 06:10 MCHC 32.0 g/dl (32.0-35.9) 11/20/17 06:10 RDW 18.0 % (11.9-15.9) H 11/20/17 06:10 Plt Count 240 K/MM3 (134-434) 11/20/17 06:10 Sodium 145 mmol/L (136-145) 11/20/17 06:10 Potassium 4.0 mmol/L (3.5-5.1) 11/20/17 06:10 Chloride 111 mmol/L (98-107) H 11/20/17 06:10 Carbon Dioxide 26 mmol/L (21-32) 11/20/17 06:10 Anion Gap 8 (8-16) 11/20/17 06:10 BUN 41 mg/dL (7-18) H 11/20/17 06:10 Creatinine 2.2 mg/dL (0.7-1.3) H 11/20/17 06:10 Random Glucose 81 mg/dL (74-106) 11/20/17 06:10 Calcium 7.6 mg/dL (8.5-10.1) L 11/20/17 06:10 INR 1.23 (0.83-1.09) H 11/17/17 15:50 Problem List - Problems (1) Venous stasis ulcers of both lower extremities Assessment/Plan: 57yo male with chronic venous stasis ulcers and chronic skin changes admitted for IV ABX with no need for vascular intervention. 1) Dressing changes to b/l LE every other day with Adaptic, Algenate, Kurlex and compressive LEAH wraps 2) Elevate legs when in Bed 3) OOB as tolerated 4) IV ABX per ID 5) DVT prophylaxis 6) Reconsult vascular surgery PRN Evaluation and plan discussed with Dr Reddy Code(s): I83.019 - VARICOSE VEINS OF RIGHT LOWER EXTREMITY W ULCER OF UNSP SITE ; I83.029 - VARICOSE VEINS OF LEFT LOWER EXTREMITY W ULCER OF UNSP SITE
--- NOTE | 2017-11-20 13:19 | PN ---
Progress Note, Physician History of Present Illness: stable no complaints dressing in place - Current Medication List Current Medications: Active Medications Allopurinol (Zyloprim -) 100 mg PO BID [facility] Last Admin: 11/20/17 09:40 Dose: 100 mg Furosemide (Lasix -) 40 mg PO DAILY [facility] Last Admin: 11/20/17 09:40 Dose: 40 mg Heparin Sodium (Porcine) (Heparin -) 5,000 unit SQ BID [facility] Last Admin: 11/20/17 09:41 Dose: 5,000 unit Piperacillin Sod/Tazobactam (Sod 2.25 gm/ Dextrose) 50 mls @ 100 mls/hr IVPB Q6H-IV [facility]; Protocol Last Admin: 11/20/17 09:40 Dose: 100 mls/hr Vancomycin HCl (Vancomycin 1 Gm Premix -) 1 gm in 200 mls @ 133.333 mls/hr IVPB DAILY@1900 [facility]; Protocol Last Admin: 11/19/17 18:17 Dose: 133.333 mls/hr Prednisone (Deltasone -) 5 mg PO DAILY [facility] Last Admin: 11/20/17 09:41 Dose: 5 mg - Objective Vital Signs: Vital Signs Temperature 97.4 F L 11/20/17 10:08 Pulse Rate 73 11/20/17 10:08 Respiratory Rate 18 11/20/17 10:08 Blood Pressure 158/73 11/20/17 10:08 O2 Sat by Pulse Oximetry (%) 95 11/20/17 09:00 Constitutional: Yes: No Distress, Calm Cardiovascular: Yes: Regular Rate and Rhythm Respiratory: Yes: Regular, CTA Bilaterally Gastrointestinal: Yes: Normal Bowel Sounds, Soft Musculoskeletal: Yes: WNL Extremities: Yes: Other Wound/Incision: Yes: Dressing Dry and Intact Neurological: Yes: Alert, Oriented Psychiatric: Yes: Alert, Oriented Labs: CBC, BMP 11/20/17 06:10 11/20/17 06:10 INR, PTT INR 1.23 (0.83-1.09) H 11/17/17 15:50 Assessment/Plan Problem List - Problems (1) Venous stasis ulcers of both lower extremities Code(s): I83.019 - VARICOSE VEINS OF RIGHT LOWER EXTREMITY W ULCER OF UNSP SITE ; I83.029 - VARICOSE VEINS OF LEFT LOWER EXTREMITY W ULCER OF UNSP SITE (2) Bilateral lower leg cellulitis Code(s): L03.116 - CELLULITIS OF LEFT LOWER LIMB; L03.115 - CELLULITIS OF RIGHT LOWER LIMB (3) Diastolic CHF Code(s): I50.30 - UNSPECIFIED DIASTOLIC (CONGESTIVE) HEART FAILURE (4) Lymphedema of both lower extremities Code(s): I89.0 - LYMPHEDEMA, NOT ELSEWHERE CLASSIFIED (5) Morbid obesity Code(s): E66.01 - MORBID (SEVERE) OBESITY DUE TO EXCESS CALORIES (6) Renal insufficiency Code(s): N28.9 - DISORDER OF KIDNEY AND URETER, UNSPECIFIED (7) Congestive heart failure Code(s): I50.9 - HEART FAILURE, UNSPECIFIED Assessment/Plan 57 y.o. male with PMH of LE chronic non-healing venous stasis ulcers with lymphedema presenting with increased foul smelling ulcers from legs Infected B/L LE venous stasis ulcers LE lymphedema CHF Anemia CKD plan continue current abx wound care follow trough rest as per the team
--- NOTE | 2017-11-20 15:47 | PN ---
Progress Note, Physician - Current Medication List Current Medications: Active Medications Allopurinol (Zyloprim -) 100 mg PO BID [facility] Last Admin: 11/20/17 09:40 Dose: 100 mg Furosemide (Lasix -) 40 mg PO DAILY [facility] Last Admin: 11/20/17 09:40 Dose: 40 mg Heparin Sodium (Porcine) (Heparin -) 5,000 unit SQ BID [facility] Last Admin: 11/20/17 09:41 Dose: 5,000 unit Piperacillin Sod/Tazobactam (Sod 2.25 gm/ Dextrose) 50 mls @ 100 mls/hr IVPB Q6H-IV [facility]; Protocol Last Admin: 11/20/17 15:05 Dose: 100 mls/hr Vancomycin HCl (Vancomycin 1 Gm Premix -) 1 gm in 200 mls @ 133.333 mls/hr IVPB DAILY@1900 [facility]; Protocol Last Admin: 11/19/17 18:17 Dose: 133.333 mls/hr Prednisone (Deltasone -) 5 mg PO DAILY [facility] Last Admin: 11/20/17 09:41 Dose: 5 mg - Objective Vital Signs: Vital Signs Temperature 97.4 F L 11/20/17 14:54 Pulse Rate 74 11/20/17 14:54 Respiratory Rate 18 11/20/17 14:54 Blood Pressure 120/68 11/20/17 14:54 O2 Sat by Pulse Oximetry (%) 95 11/20/17 09:00 Constitutional: Yes: No Distress HENT: Yes: Atraumatic Neck: Yes: Supple Cardiovascular: Yes: Regular Rate and Rhythm Respiratory: Yes: CTA Bilaterally Gastrointestinal: Yes: Normal Bowel Sounds Extremities: Yes: WNL Neurological: Yes: Alert, Oriented Labs: CBC, BMP 11/20/17 06:10 11/20/17 06:10 INR, PTT INR 1.23 (0.83-1.09) H 11/17/17 15:50 Problem List - Problems (1) Venous stasis ulcers of both lower extremities Assessment/Plan: on iv abx wound care, dressing change id on board Code(s): I83.019 - VARICOSE VEINS OF RIGHT LOWER EXTREMITY W ULCER OF UNSP SITE ; I83.029 - VARICOSE VEINS OF LEFT LOWER EXTREMITY W ULCER OF UNSP SITE (2) Diastolic CHF Assessment/Plan: on lasix Code(s): I50.30 - UNSPECIFIED DIASTOLIC (CONGESTIVE) HEART FAILURE
[2017-11-20] MEDS: VANCOMYCIN 1 GM PREMIX - 1 GM/200 ML BAG IVPB SCH (18:38)
[2017-11-21] MEDS ORDERED: PIPERACILLIN/TAZOBACTAM 2.25 GM VIAL IVPB ONE ×4 (00:55→20:57)
[2017-11-21] MEDS ORDERED: DEXTROSE 5%-WATER - 50 ML IVPB ONE ×3 (00:55→20:57)
[2017-11-21] MEDS: PIPERACILLIN/TAZOB 2.25 GM 2.25 GM in DEXTROSE 5%-WATER - 50 ML IVPB SCH ×4 (03:01→21:06)
[2017-11-21] MEDS: HEPARIN NA (PORCINE) 5,000 UNITS/ML 1ML VIAL SQ SCH ×2 (09:59→21:06)
[2017-11-21] MEDS: FUROSEMIDE 40 MG TABLET (FP) PO SCH (09:59)
[2017-11-21] MEDS: predniSONE 5 MG TABLET (UD) PO SCH (09:59)
[2017-11-21] MEDS: ALLOPURINOL 100 MG TABLET (FP) PO SCH ×2 (09:59→21:06)
--- NOTE | 2017-11-21 14:35 | PN ---
Progress Note, Physician History of Present Illness: patient stable no issues feels better - Current Medication List Current Medications: Active Medications Allopurinol (Zyloprim -) 100 mg PO BID [facility] Last Admin: 11/21/17 09:59 Dose: 100 mg Furosemide (Lasix -) 40 mg PO DAILY [facility] Last Admin: 11/21/17 09:59 Dose: 40 mg Heparin Sodium (Porcine) (Heparin -) 5,000 unit SQ BID [facility] Last Admin: 11/21/17 09:59 Dose: 5,000 unit Piperacillin Sod/Tazobactam (Sod 2.25 gm/ Dextrose) 50 mls @ 100 mls/hr IVPB Q6H-IV [facility]; Protocol Last Admin: 11/21/17 09:59 Dose: 100 mls/hr Vancomycin HCl (Vancomycin 1 Gm Premix -) 1 gm in 200 mls @ 133.333 mls/hr IVPB DAILY@1900 [facility]; Protocol Last Admin: 11/20/17 18:38 Dose: 133.333 mls/hr Prednisone (Deltasone -) 5 mg PO DAILY [facility] Last Admin: 11/21/17 09:59 Dose: 5 mg - Objective Vital Signs: Vital Signs Temperature 98.7 F 11/21/17 10:08 Pulse Rate 74 11/21/17 10:08 Respiratory Rate 20 11/21/17 10:08 Blood Pressure 148/61 11/21/17 10:08 O2 Sat by Pulse Oximetry (%) 98 11/21/17 09:00 Constitutional: Yes: No Distress, Calm Cardiovascular: Yes: Regular Rate and Rhythm Respiratory: Yes: Regular, CTA Bilaterally Gastrointestinal: Yes: Normal Bowel Sounds, Soft Musculoskeletal: Yes: WNL Extremities: Yes: WNL Neurological: Yes: Alert, Oriented Psychiatric: Yes: Alert, Oriented Labs: CBC, BMP 11/20/17 06:10 11/20/17 06:10 INR, PTT INR 1.23 (0.83-1.09) H 11/17/17 15:50 Assessment/Plan Problem List - Problems (1) Venous stasis ulcers of both lower extremities Code(s): I83.019 - VARICOSE VEINS OF RIGHT LOWER EXTREMITY W ULCER OF UNSP SITE ; I83.029 - VARICOSE VEINS OF LEFT LOWER EXTREMITY W ULCER OF UNSP SITE (2) Bilateral lower leg cellulitis Code(s): L03.116 - CELLULITIS OF LEFT LOWER LIMB; L03.115 - CELLULITIS OF RIGHT LOWER LIMB (3) Diastolic CHF Code(s): I50.30 - UNSPECIFIED DIASTOLIC (CONGESTIVE) HEART FAILURE (4) Lymphedema of both lower extremities Code(s): I89.0 - LYMPHEDEMA, NOT ELSEWHERE CLASSIFIED (5) Morbid obesity Code(s): E66.01 - MORBID (SEVERE) OBESITY DUE TO EXCESS CALORIES (6) Renal insufficiency Code(s): N28.9 - DISORDER OF KIDNEY AND URETER, UNSPECIFIED (7) Congestive heart failure Code(s): I50.9 - HEART FAILURE, UNSPECIFIED Assessment/Plan 57 y.o. male with PMH of LE chronic non-healing venous stasis ulcers with lymphedema presenting with increased foul smelling ulcers from legs Infected B/L LE venous stasis ulcers LE lymphedema CHF Anemia CKD plan continue current abx wound care vanco trough noted continue current mgmt
--- NOTE | 2017-11-21 19:20 | PN ---
Progress Note, Physician History of Present Illness: doing well - Current Medication List Current Medications: Active Medications Allopurinol (Zyloprim -) 100 mg PO BID [facility] Last Admin: 11/21/17 09:59 Dose: 100 mg Furosemide (Lasix -) 40 mg PO DAILY [facility] Last Admin: 11/21/17 09:59 Dose: 40 mg Heparin Sodium (Porcine) (Heparin -) 5,000 unit SQ BID [facility] Last Admin: 11/21/17 09:59 Dose: 5,000 unit Piperacillin Sod/Tazobactam (Sod 2.25 gm/ Dextrose) 50 mls @ 100 mls/hr IVPB Q6H-IV [facility]; Protocol Last Admin: 11/21/17 15:15 Dose: 100 mls/hr Vancomycin HCl (Vancomycin 1 Gm Premix -) 1 gm in 200 mls @ 133.333 mls/hr IVPB DAILY@1900 [facility]; Protocol Last Admin: 11/20/17 18:38 Dose: 133.333 mls/hr Prednisone (Deltasone -) 5 mg PO DAILY [facility] Last Admin: 11/21/17 09:59 Dose: 5 mg - Objective Vital Signs: Vital Signs Temperature 98.7 F 11/21/17 10:08 Pulse Rate 74 11/21/17 10:08 Respiratory Rate 20 11/21/17 10:08 Blood Pressure 148/61 11/21/17 10:08 O2 Sat by Pulse Oximetry (%) 98 11/21/17 09:00 Constitutional: Yes: No Distress HENT: Yes: Atraumatic Neck: Yes: Supple Cardiovascular: Yes: Regular Rate and Rhythm Respiratory: Yes: CTA Bilaterally Gastrointestinal: Yes: Normal Bowel Sounds Extremities: Yes: Other (b/l porfirio cellulitis) Edema: Yes Edema: LLE: 1+, RLE: 1+ Neurological: Yes: Alert, Oriented Labs: CBC, BMP 11/20/17 06:10 11/20/17 06:10 INR, PTT INR 1.23 (0.83-1.09) H 11/17/17 15:50 Problem List - Problems (1) Venous stasis ulcers of both lower extremities Assessment/Plan: on iv abx wound care, dressing change id on board Code(s): I83.019 - VARICOSE VEINS OF RIGHT LOWER EXTREMITY W ULCER OF UNSP SITE ; I83.029 - VARICOSE VEINS OF LEFT LOWER EXTREMITY W ULCER OF UNSP SITE (2) Diastolic CHF Assessment/Plan: on lasix Code(s): I50.30 - UNSPECIFIED DIASTOLIC (CONGESTIVE) HEART FAILURE
[2017-11-22] MEDS ORDERED: DEXTROSE 5%-WATER - 50 ML IVPB ONE ×4 (02:24→21:34)
[2017-11-22] MEDS ORDERED: PIPERACILLIN/TAZOBACTAM 2.25 GM VIAL IVPB ONE ×4 (02:24→21:33)
[2017-11-22] MEDS: PIPERACILLIN/TAZOB 2.25 GM 2.25 GM in DEXTROSE 5%-WATER - 50 ML IVPB SCH ×4 (02:29→21:37)
[2017-11-22] MEDS: HEPARIN NA (PORCINE) 5,000 UNITS/ML 1ML VIAL SQ SCH ×2 (10:24→21:37)
[2017-11-22] MEDS: FUROSEMIDE 40 MG TABLET (FP) PO SCH (10:25)
[2017-11-22] MEDS: predniSONE 5 MG TABLET (UD) PO SCH (10:25)
[2017-11-22] MEDS: ALLOPURINOL 100 MG TABLET (FP) PO SCH ×2 (10:26→21:37)
--- NOTE | 2017-11-22 13:57 | PN ---
Progress Note, Physician History of Present Illness: stable doing well vanco trough noted yesterday dressing clean - Current Medication List Current Medications: Active Medications Allopurinol (Zyloprim -) 100 mg PO BID [facility] Last Admin: 11/22/17 10:26 Dose: 100 mg Furosemide (Lasix -) 40 mg PO DAILY [facility] Last Admin: 11/22/17 10:25 Dose: 40 mg Heparin Sodium (Porcine) (Heparin -) 5,000 unit SQ BID [facility] Last Admin: 11/22/17 10:24 Dose: 5,000 unit Piperacillin Sod/Tazobactam (Sod 2.25 gm/ Dextrose) 50 mls @ 100 mls/hr IVPB Q6H-IV [facility]; Protocol Last Admin: 11/22/17 10:26 Dose: 100 mls/hr Vancomycin HCl (Vancomycin 1 Gm Premix -) 1 gm in 200 mls @ 133.333 mls/hr IVPB DAILY@1900 [facility]; Protocol Last Admin: 11/20/17 18:38 Dose: 133.333 mls/hr Prednisone (Deltasone -) 5 mg PO DAILY [facility] Last Admin: 11/22/17 10:25 Dose: 5 mg - Objective Vital Signs: Vital Signs Temperature 98.2 F 11/22/17 09:00 Pulse Rate 74 11/22/17 09:00 Respiratory Rate 18 11/22/17 09:00 Blood Pressure 132/75 11/22/17 09:00 O2 Sat by Pulse Oximetry (%) 98 11/21/17 22:00 Constitutional: Yes: No Distress, Calm Cardiovascular: Yes: Regular Rate and Rhythm Respiratory: Yes: Regular, CTA Bilaterally Gastrointestinal: Yes: Normal Bowel Sounds, Soft Musculoskeletal: Yes: WNL Extremities: Yes: Other Wound/Incision: Yes: Dressing Dry and Intact Neurological: Yes: Alert, Oriented Psychiatric: Yes: Alert, Oriented Labs: CBC, BMP 11/20/17 06:10 11/20/17 06:10 INR, PTT INR 1.23 (0.83-1.09) H 11/17/17 15:50 Assessment/Plan Problem List - Problems (1) Venous stasis ulcers of both lower extremities Code(s): I83.019 - VARICOSE VEINS OF RIGHT LOWER EXTREMITY W ULCER OF UNSP SITE ; I83.029 - VARICOSE VEINS OF LEFT LOWER EXTREMITY W ULCER OF UNSP SITE (2) Bilateral lower leg cellulitis Code(s): L03.116 - CELLULITIS OF LEFT LOWER LIMB; L03.115 - CELLULITIS OF RIGHT LOWER LIMB (3) Diastolic CHF Code(s): I50.30 - UNSPECIFIED DIASTOLIC (CONGESTIVE) HEART FAILURE (4) Lymphedema of both lower extremities Code(s): I89.0 - LYMPHEDEMA, NOT ELSEWHERE CLASSIFIED (5) Morbid obesity Code(s): E66.01 - MORBID (SEVERE) OBESITY DUE TO EXCESS CALORIES (6) Renal insufficiency Code(s): N28.9 - DISORDER OF KIDNEY AND URETER, UNSPECIFIED (7) Congestive heart failure Code(s): I50.9 - HEART FAILURE, UNSPECIFIED Assessment/Plan 57 y.o. male with PMH of LE chronic non-healing venous stasis ulcers with lymphedema presenting with increased foul smelling ulcers from legs Infected B/L LE venous stasis ulcers LE lymphedema CHF Anemia CKD plan continue current abx wound care jannetho artie will send levels and will adjust the dose
[2017-11-22] MEDS ORDERED: VANCOMYCIN 750 MG in DEXTROSE 5%-WATER - 100 ML IVPB SCH (16:45)
[2017-11-22] MEDS: VANCOMYCIN 1 GM PREMIX - 1 GM/200 ML BAG IVPB SCH (16:58)
--- NOTE | 2017-11-22 17:03 | PN ---
Progress Note, Physician History of Present Illness: doing well - Current Medication List Current Medications: Active Medications Allopurinol (Zyloprim -) 100 mg PO BID [facility] Last Admin: 11/22/17 10:26 Dose: 100 mg Furosemide (Lasix -) 40 mg PO DAILY [facility] Last Admin: 11/22/17 10:25 Dose: 40 mg Heparin Sodium (Porcine) (Heparin -) 5,000 unit SQ BID [facility] Last Admin: 11/22/17 10:24 Dose: 5,000 unit Piperacillin Sod/Tazobactam (Sod 2.25 gm/ Dextrose) 50 mls @ 100 mls/hr IVPB Q6H-IV [facility]; Protocol Last Admin: 11/22/17 15:37 Dose: 100 mls/hr Vancomycin HCl 750 mg/ (Dextrose) 250 mls @ 100 mls/hr IVPB Q24H [facility]; Protocol Prednisone (Deltasone -) 5 mg PO DAILY [facility] Last Admin: 11/22/17 10:25 Dose: 5 mg - Objective Vital Signs: Vital Signs Temperature 98.2 F 11/22/17 09:00 Pulse Rate 74 11/22/17 09:00 Respiratory Rate 18 11/22/17 09:00 Blood Pressure 132/75 11/22/17 09:00 O2 Sat by Pulse Oximetry (%) 98 11/21/17 22:00 Constitutional: Yes: No Distress HENT: Yes: Atraumatic Neck: Yes: Supple Cardiovascular: Yes: Regular Rate and Rhythm Respiratory: Yes: CTA Bilaterally Gastrointestinal: Yes: Normal Bowel Sounds Extremities: Yes: Other (b/l porfirio cellulitis) Neurological: Yes: Alert, Oriented Labs: CBC, BMP 11/20/17 06:10 11/20/17 06:10 INR, PTT INR 1.23 (0.83-1.09) H 11/17/17 15:50 Problem List - Problems (1) Venous stasis ulcers of both lower extremities Assessment/Plan: on iv abx wound care, dressing change id on board Code(s): I83.019 - VARICOSE VEINS OF RIGHT LOWER EXTREMITY W ULCER OF UNSP SITE ; I83.029 - VARICOSE VEINS OF LEFT LOWER EXTREMITY W ULCER OF UNSP SITE (2) Diastolic CHF Assessment/Plan: on lasix Code(s): I50.30 - UNSPECIFIED DIASTOLIC (CONGESTIVE) HEART FAILURE
[2017-11-22] MEDS: VANCOMYCIN 750 MG in DEXTROSE 5%-WATER - 250 ML IVPB SCH (18:20)
[2017-11-23] MEDS ORDERED: PIPERACILLIN/TAZOBACTAM 2.25 GM VIAL IVPB ONE ×4 (02:13→20:09)
[2017-11-23] MEDS ORDERED: DEXTROSE 5%-WATER - 50 ML IVPB ONE ×4 (02:13→20:09)
[2017-11-23] MEDS: PIPERACILLIN/TAZOB 2.25 GM 2.25 GM in DEXTROSE 5%-WATER - 50 ML IVPB SCH ×4 (02:20→21:57)
[2017-11-23] MEDS: HEPARIN NA (PORCINE) 5,000 UNITS/ML 1ML VIAL SQ SCH ×2 (10:34→21:57)
[2017-11-23] MEDS: ALLOPURINOL 100 MG TABLET (FP) PO SCH ×2 (10:34→21:57)
[2017-11-23] MEDS: FUROSEMIDE 40 MG TABLET (FP) PO SCH (10:34)
[2017-11-23] MEDS: predniSONE 5 MG TABLET (UD) PO SCH (10:34)
--- NOTE | 2017-11-23 13:47 | PN ---
Progress Note, Physician History of Present Illness: patient stable no issues feels better - Current Medication List Current Medications: Active Medications Allopurinol (Zyloprim -) 100 mg PO BID [facility] Last Admin: 11/23/17 10:34 Dose: 100 mg Furosemide (Lasix -) 40 mg PO DAILY [facility] Last Admin: 11/23/17 10:34 Dose: 40 mg Heparin Sodium (Porcine) (Heparin -) 5,000 unit SQ BID [facility] Last Admin: 11/23/17 10:34 Dose: 5,000 unit Piperacillin Sod/Tazobactam (Sod 2.25 gm/ Dextrose) 50 mls @ 100 mls/hr IVPB Q6H-IV [facility]; Protocol Last Admin: 11/23/17 10:34 Dose: 100 mls/hr Vancomycin HCl 750 mg/ (Dextrose) 250 mls @ 100 mls/hr IVPB Q24H [facility]; Protocol Last Admin: 11/22/17 18:20 Dose: 100 mls/hr Prednisone (Deltasone -) 5 mg PO DAILY [facility] Last Admin: 11/23/17 10:34 Dose: 5 mg - Objective Vital Signs: Vital Signs Temperature 98.4 F 11/23/17 05:12 Pulse Rate 79 11/23/17 05:12 Respiratory Rate 20 11/23/17 05:12 Blood Pressure 140/82 11/23/17 05:12 O2 Sat by Pulse Oximetry (%) 97 11/23/17 09:00 Constitutional: Yes: No Distress, Calm HENT: Yes: Atraumatic, Normocephalic Neck: Yes: Supple, Trachea Midline Cardiovascular: Yes: Regular Rate and Rhythm Gastrointestinal: Yes: Normal Bowel Sounds, Soft Musculoskeletal: Yes: WNL Extremities: Yes: Other Neurological: Yes: Alert, Oriented Psychiatric: Yes: Alert, Oriented Labs: CBC, BMP 11/20/17 06:10 11/20/17 06:10 INR, PTT INR 1.23 (0.83-1.09) H 11/17/17 15:50 Assessment/Plan Problem List - Problems (1) Venous stasis ulcers of both lower extremities Code(s): I83.019 - VARICOSE VEINS OF RIGHT LOWER EXTREMITY W ULCER OF UNSP SITE ; I83.029 - VARICOSE VEINS OF LEFT LOWER EXTREMITY W ULCER OF UNSP SITE (2) Bilateral lower leg cellulitis Code(s): L03.116 - CELLULITIS OF LEFT LOWER LIMB; L03.115 - CELLULITIS OF RIGHT LOWER LIMB (3) Diastolic CHF Code(s): I50.30 - UNSPECIFIED DIASTOLIC (CONGESTIVE) HEART FAILURE (4) Lymphedema of both lower extremities Code(s): I89.0 - LYMPHEDEMA, NOT ELSEWHERE CLASSIFIED (5) Morbid obesity Code(s): E66.01 - MORBID (SEVERE) OBESITY DUE TO EXCESS CALORIES (6) Renal insufficiency Code(s): N28.9 - DISORDER OF KIDNEY AND URETER, UNSPECIFIED (7) Congestive heart failure Code(s): I50.9 - HEART FAILURE, UNSPECIFIED Assessment/Plan 57 y.o. male with PMH of LE chronic non-healing venous stasis ulcers with lymphedema presenting with increased foul smelling ulcers from legs Infected B/L LE venous stasis ulcers LE lymphedema CHF Anemia CKD plan continue current abx wound care rest as per the team
[2017-11-23] MEDS ORDERED: PT OWN MED DRAWER 7, Y5N ONE (16:29)
[2017-11-23] MEDS: VANCOMYCIN 750 MG in DEXTROSE 5%-WATER - 250 ML IVPB SCH (16:42)
--- NOTE | 2017-11-23 17:55 | PN ---
Progress Note, Physician - Current Medication List Current Medications: Active Medications Allopurinol (Zyloprim -) 100 mg PO BID [facility] Last Admin: 11/23/17 10:34 Dose: 100 mg Furosemide (Lasix -) 40 mg PO DAILY [facility] Last Admin: 11/23/17 10:34 Dose: 40 mg Heparin Sodium (Porcine) (Heparin -) 5,000 unit SQ BID [facility] Last Admin: 11/23/17 10:34 Dose: 5,000 unit Piperacillin Sod/Tazobactam (Sod 2.25 gm/ Dextrose) 50 mls @ 100 mls/hr IVPB Q6H-IV [facility]; Protocol Last Admin: 11/23/17 15:06 Dose: 100 mls/hr Vancomycin HCl 750 mg/ (Dextrose) 250 mls @ 100 mls/hr IVPB Q24H [facility]; Protocol Last Admin: 11/23/17 16:42 Dose: 100 mls/hr Prednisone (Deltasone -) 5 mg PO DAILY [facility] Last Admin: 11/23/17 10:34 Dose: 5 mg - Objective Vital Signs: Vital Signs Temperature 98.2 F 11/23/17 15:20 Pulse Rate 76 11/23/17 15:20 Respiratory Rate 20 11/23/17 05:12 Blood Pressure 140/82 11/23/17 05:12 O2 Sat by Pulse Oximetry (%) 97 11/23/17 09:00 Constitutional: Yes: No Distress HENT: Yes: Atraumatic Neck: Yes: Supple Cardiovascular: Yes: Regular Rate and Rhythm Respiratory: Yes: CTA Bilaterally Gastrointestinal: Yes: Normal Bowel Sounds Extremities: Yes: Other (cellulitis b/l porfirio) Neurological: Yes: Alert, Oriented Labs: CBC, BMP 11/20/17 06:10 11/20/17 06:10 INR, PTT INR 1.23 (0.83-1.09) H 11/17/17 15:50 Problem List - Problems (1) Venous stasis ulcers of both lower extremities Assessment/Plan: on iv abx wound care, dressing change id on board Code(s): I83.019 - VARICOSE VEINS OF RIGHT LOWER EXTREMITY W ULCER OF UNSP SITE ; I83.029 - VARICOSE VEINS OF LEFT LOWER EXTREMITY W ULCER OF UNSP SITE (2) Diastolic CHF Assessment/Plan: on lasix Code(s): I50.30 - UNSPECIFIED DIASTOLIC (CONGESTIVE) HEART FAILURE
[2017-11-24] MEDS ORDERED: DEXTROSE 5%-WATER - 50 ML IVPB ONE ×4 (03:16→21:42)
[2017-11-24] MEDS ORDERED: PIPERACILLIN/TAZOBACTAM 2.25 GM VIAL IVPB ONE ×4 (03:16→21:41)
[2017-11-24] MEDS ORDERED: PT OWN MED DRAWER 7, Y5N ONE ×2 (10:07→17:33)
[2017-11-24] MEDS: FUROSEMIDE 40 MG TABLET (FP) PO SCH (10:37)
[2017-11-24] MEDS: PIPERACILLIN/TAZOB 2.25 GM 2.25 GM in DEXTROSE 5%-WATER - 50 ML IVPB SCH ×3 (10:37→21:53)
[2017-11-24] MEDS: predniSONE 5 MG TABLET (UD) PO SCH (10:37)
[2017-11-24] MEDS: ALLOPURINOL 100 MG TABLET (FP) PO SCH ×2 (10:37→21:53)
[2017-11-24] MEDS: HEPARIN NA (PORCINE) 5,000 UNITS/ML 1ML VIAL SQ SCH (10:37)
--- NOTE | 2017-11-24 11:55 | PN ---
Progress Note, Physician History of Present Illness: patient stable no issues feels better - Current Medication List Current Medications: Active Medications Allopurinol (Zyloprim -) 100 mg PO BID [facility] Last Admin: 11/24/17 10:37 Dose: 100 mg Furosemide (Lasix -) 40 mg PO DAILY [facility] Last Admin: 11/24/17 10:37 Dose: 40 mg Heparin Sodium (Porcine) (Heparin -) 5,000 unit SQ BID [facility] Last Admin: 11/24/17 10:37 Dose: 5,000 unit Piperacillin Sod/Tazobactam (Sod 2.25 gm/ Dextrose) 50 mls @ 100 mls/hr IVPB Q6H-IV [facility]; Protocol Last Admin: 11/24/17 10:37 Dose: 100 mls/hr Vancomycin HCl 750 mg/ (Dextrose) 250 mls @ 100 mls/hr IVPB Q24H [facility]; Protocol Last Admin: 11/23/17 16:42 Dose: 100 mls/hr Prednisone (Deltasone -) 5 mg PO DAILY [facility] Last Admin: 11/24/17 10:37 Dose: 5 mg - Objective Vital Signs: Vital Signs Temperature 97.5 F L 11/24/17 08:34 Pulse Rate 79 11/24/17 08:34 Respiratory Rate 20 11/24/17 08:34 Blood Pressure 129/73 11/24/17 08:34 O2 Sat by Pulse Oximetry (%) 98 11/23/17 21:00 Constitutional: Yes: No Distress, Calm Eyes: Yes: Conjunctiva Clear HENT: Yes: Atraumatic, Normocephalic Cardiovascular: Yes: Regular Rate and Rhythm Respiratory: Yes: Regular, CTA Bilaterally Gastrointestinal: Yes: Normal Bowel Sounds, Soft Extremities: Yes: WNL, Other Neurological: Yes: Alert, Oriented Psychiatric: Yes: Alert, Oriented Labs: CBC, BMP 11/20/17 06:10 11/20/17 06:10 INR, PTT INR 1.23 (0.83-1.09) H 11/17/17 15:50 Assessment/Plan Problem List - Problems (1) Venous stasis ulcers of both lower extremities Code(s): I83.019 - VARICOSE VEINS OF RIGHT LOWER EXTREMITY W ULCER OF UNSP SITE ; I83.029 - VARICOSE VEINS OF LEFT LOWER EXTREMITY W ULCER OF UNSP SITE (2) Bilateral lower leg cellulitis Code(s): L03.116 - CELLULITIS OF LEFT LOWER LIMB; L03.115 - CELLULITIS OF RIGHT LOWER LIMB (3) Diastolic CHF Code(s): I50.30 - UNSPECIFIED DIASTOLIC (CONGESTIVE) HEART FAILURE (4) Lymphedema of both lower extremities Code(s): I89.0 - LYMPHEDEMA, NOT ELSEWHERE CLASSIFIED (5) Morbid obesity Code(s): E66.01 - MORBID (SEVERE) OBESITY DUE TO EXCESS CALORIES (6) Renal insufficiency Code(s): N28.9 - DISORDER OF KIDNEY AND URETER, UNSPECIFIED (7) Congestive heart failure Code(s): I50.9 - HEART FAILURE, UNSPECIFIED Assessment/Plan 57 y.o. male with PMH of LE chronic non-healing venous stasis ulcers with lymphedema presenting with increased foul smelling ulcers from legs Infected B/L LE venous stasis ulcers LE lymphedema CHF Anemia CKD plan continue current abx wound care rest as per the team
--- NOTE | 2017-11-24 15:09 | PN ---
Progress Note, Physician - Current Medication List Current Medications: Active Medications Allopurinol (Zyloprim -) 100 mg PO BID [facility] Last Admin: 11/24/17 10:37 Dose: 100 mg Furosemide (Lasix -) 40 mg PO DAILY [facility] Last Admin: 11/24/17 10:37 Dose: 40 mg Heparin Sodium (Porcine) (Heparin -) 5,000 unit SQ BID [facility] Last Admin: 11/24/17 10:37 Dose: 5,000 unit Piperacillin Sod/Tazobactam (Sod 2.25 gm/ Dextrose) 50 mls @ 100 mls/hr IVPB Q6H-IV [facility]; Protocol Last Admin: 11/24/17 10:37 Dose: 100 mls/hr Vancomycin HCl 750 mg/ (Dextrose) 250 mls @ 100 mls/hr IVPB Q24H [facility]; Protocol Last Admin: 11/23/17 16:42 Dose: 100 mls/hr Prednisone (Deltasone -) 5 mg PO DAILY [facility] Last Admin: 11/24/17 10:37 Dose: 5 mg - Objective Vital Signs: Vital Signs Temperature 98.4 F 11/24/17 15:00 Pulse Rate 76 11/24/17 15:00 Respiratory Rate 20 11/24/17 08:34 Blood Pressure 132/67 11/24/17 15:00 O2 Sat by Pulse Oximetry (%) 98 11/23/17 21:00 HENT: Yes: Atraumatic Neck: Yes: Supple Cardiovascular: Yes: Regular Rate and Rhythm Respiratory: Yes: CTA Bilaterally Gastrointestinal: Yes: Normal Bowel Sounds Extremities: Yes: Other (b/llex cellulitis) Neurological: Yes: Alert, Oriented Labs: CBC, BMP 11/20/17 06:10 11/20/17 06:10 INR, PTT INR 1.23 (0.83-1.09) H 11/17/17 15:50 Problem List - Problems (1) Venous stasis ulcers of both lower extremities Assessment/Plan: on iv abx wound care, dressing change id on board Code(s): I83.019 - VARICOSE VEINS OF RIGHT LOWER EXTREMITY W ULCER OF UNSP SITE ; I83.029 - VARICOSE VEINS OF LEFT LOWER EXTREMITY W ULCER OF UNSP SITE (2) Diastolic CHF Assessment/Plan: on lasix Code(s): I50.30 - UNSPECIFIED DIASTOLIC (CONGESTIVE) HEART FAILURE
[2017-11-24] MEDS: VANCOMYCIN 750 MG in DEXTROSE 5%-WATER - 250 ML IVPB SCH (17:36)
[2017-11-25] MEDS ORDERED: PIPERACILLIN/TAZOBACTAM 2.25 GM VIAL IVPB ONE ×4 (02:23→21:58)
[2017-11-25] MEDS ORDERED: DEXTROSE 5%-WATER - 50 ML IVPB ONE ×4 (02:24→21:58)
[2017-11-25] MEDS: PIPERACILLIN/TAZOB 2.25 GM 2.25 GM in DEXTROSE 5%-WATER - 50 ML IVPB SCH ×5 (10:10→22:15)
[2017-11-25] MEDS: FUROSEMIDE 40 MG TABLET (FP) PO SCH (10:11)
[2017-11-25] MEDS: predniSONE 5 MG TABLET (UD) PO SCH (10:11)
[2017-11-25] MEDS: ALLOPURINOL 100 MG TABLET (FP) PO SCH ×2 (10:11→22:15)
--- NOTE | 2017-11-25 13:17 | PN ---
Progress Note, Physician History of Present Illness: patient stable no issues feels better - Current Medication List Current Medications: Active Medications Allopurinol (Zyloprim -) 100 mg PO BID [facility] Last Admin: 11/25/17 10:11 Dose: 100 mg Furosemide (Lasix -) 40 mg PO DAILY [facility] Last Admin: 11/25/17 10:11 Dose: 40 mg Piperacillin Sod/Tazobactam (Sod 2.25 gm/ Dextrose) 50 mls @ 100 mls/hr IVPB Q6H-IV [facility]HEL[facility]; Protocol Last Admin: 11/25/17 10:11 Dose: Not Given Vancomycin HCl 750 mg/ (Dextrose) 250 mls @ 100 mls/hr IVPB Q24H [facility]; Protocol Last Admin: 11/24/17 17:36 Dose: 100 mls/hr Prednisone (Deltasone -) 5 mg PO DAILY [facility] Last Admin: 11/25/17 10:11 Dose: 5 mg - Objective Vital Signs: Vital Signs Temperature 98.5 F 11/25/17 08:21 Pulse Rate 64 11/25/17 08:21 Respiratory Rate 18 11/25/17 08:21 Blood Pressure 145/84 11/25/17 08:21 O2 Sat by Pulse Oximetry (%) 98 11/24/17 09:00 Constitutional: Yes: No Distress, Calm Cardiovascular: Yes: Regular Rate and Rhythm Respiratory: Yes: Regular, CTA Bilaterally Gastrointestinal: Yes: Normal Bowel Sounds, Soft Musculoskeletal: Yes: Other Extremities: Yes: Other Wound/Incision: Yes: Dressing Dry and Intact Neurological: Yes: Alert, Oriented Psychiatric: Yes: Alert Labs: CBC, BMP 11/20/17 06:10 11/20/17 06:10 INR, PTT INR 1.23 (0.83-1.09) H 11/17/17 15:50 Assessment/Plan Problem List - Problems (1) Venous stasis ulcers of both lower extremities Code(s): I83.019 - VARICOSE VEINS OF RIGHT LOWER EXTREMITY W ULCER OF UNSP SITE ; I83.029 - VARICOSE VEINS OF LEFT LOWER EXTREMITY W ULCER OF UNSP SITE (2) Bilateral lower leg cellulitis Code(s): L03.116 - CELLULITIS OF LEFT LOWER LIMB; L03.115 - CELLULITIS OF RIGHT LOWER LIMB (3) Diastolic CHF Code(s): I50.30 - UNSPECIFIED DIASTOLIC (CONGESTIVE) HEART FAILURE (4) Lymphedema of both lower extremities Code(s): I89.0 - LYMPHEDEMA, NOT ELSEWHERE CLASSIFIED (5) Morbid obesity Code(s): E66.01 - MORBID (SEVERE) OBESITY DUE TO EXCESS CALORIES (6) Renal insufficiency Code(s): N28.9 - DISORDER OF KIDNEY AND URETER, UNSPECIFIED (7) Congestive heart failure Code(s): I50.9 - HEART FAILURE, UNSPECIFIED Assessment/Plan 57 y.o. male with PMH of LE chronic non-healing venous stasis ulcers with lymphedema presenting with increased foul smelling ulcers from legs Infected B/L LE venous stasis ulcers LE lymphedema CHF Anemia CKD plan continue current abx wound care rest as per the team
[2017-11-25] MEDS: VANCOMYCIN 750 MG in DEXTROSE 5%-WATER - 250 ML IVPB SCH (15:58)
--- NOTE | 2017-11-25 16:57 | PN ---
Progress Note, Physician History of Present Illness: doing well - Current Medication List Current Medications: Active Medications Allopurinol (Zyloprim -) 100 mg PO BID [facility] Last Admin: 11/25/17 10:11 Dose: 100 mg Furosemide (Lasix -) 40 mg PO DAILY [facility] Last Admin: 11/25/17 10:11 Dose: 40 mg Piperacillin Sod/Tazobactam (Sod 2.25 gm/ Dextrose) 50 mls @ 100 mls/hr IVPB Q6H-IV [facility]; Protocol Last Admin: 11/25/17 15:56 Dose: Not Given Vancomycin HCl 750 mg/ (Dextrose) 250 mls @ 100 mls/hr IVPB Q24H [facility]; Protocol Last Admin: 11/25/17 15:58 Dose: 100 mls/hr Prednisone (Deltasone -) 5 mg PO DAILY [facility] Last Admin: 11/25/17 10:11 Dose: 5 mg - Objective Vital Signs: Vital Signs Temperature 98.6 F 11/25/17 15:08 Pulse Rate 71 11/25/17 15:08 Respiratory Rate 18 11/25/17 15:08 Blood Pressure 119/68 11/25/17 15:08 O2 Sat by Pulse Oximetry (%) 98 11/24/17 09:00 Constitutional: Yes: No Distress HENT: Yes: Atraumatic Neck: Yes: Supple Cardiovascular: Yes: Regular Rate and Rhythm Respiratory: Yes: CTA Bilaterally Gastrointestinal: Yes: Normal Bowel Sounds Extremities: Yes: Other (cellulitis b/l porfirio) Neurological: Yes: Alert, Oriented Labs: CBC, BMP 11/20/17 06:10 11/20/17 06:10 INR, PTT INR 1.23 (0.83-1.09) H 11/17/17 15:50 Problem List - Problems (1) Venous stasis ulcers of both lower extremities Assessment/Plan: on iv abx wound care, dressing change id on board Code(s): I83.019 - VARICOSE VEINS OF RIGHT LOWER EXTREMITY W ULCER OF UNSP SITE ; I83.029 - VARICOSE VEINS OF LEFT LOWER EXTREMITY W ULCER OF UNSP SITE (2) Diastolic CHF Assessment/Plan: on lasix Code(s): I50.30 - UNSPECIFIED DIASTOLIC (CONGESTIVE) HEART FAILURE
--- NOTE | 2017-11-26 08:04 | PN ---
Progress Note, Physician History of Present Illness: stable doing well no complaints - Current Medication List Current Medications: Active Medications Allopurinol (Zyloprim -) 100 mg PO BID [facility] Last Admin: 11/25/17 22:15 Dose: 100 mg Furosemide (Lasix -) 40 mg PO DAILY [facility] Last Admin: 11/25/17 10:11 Dose: 40 mg Piperacillin Sod/Tazobactam (Sod 2.25 gm/ Dextrose) 50 mls @ 100 mls/hr IVPB Q6H-IV [facility]; Protocol Last Admin: 11/25/17 22:15 Dose: 100 mls/hr Vancomycin HCl 750 mg/ (Dextrose) 250 mls @ 100 mls/hr IVPB Q24H [facility]; Protocol Last Admin: 11/25/17 15:58 Dose: 100 mls/hr Prednisone (Deltasone -) 5 mg PO DAILY [facility] Last Admin: 11/25/17 10:11 Dose: 5 mg - Objective Vital Signs: Vital Signs Temperature 97.8 F 11/26/17 06:00 Pulse Rate 78 11/26/17 06:00 Respiratory Rate 18 11/25/17 18:00 Blood Pressure 126/75 11/26/17 06:00 O2 Sat by Pulse Oximetry (%) 98 11/24/17 09:00 Constitutional: Yes: No Distress, Calm Cardiovascular: Yes: Regular Rate and Rhythm Respiratory: Yes: Regular, CTA Bilaterally Gastrointestinal: Yes: Normal Bowel Sounds, Soft Musculoskeletal: Yes: WNL Extremities: Yes: Other Wound/Incision: Yes: Dressing Dry and Intact Neurological: Yes: Alert, Oriented Psychiatric: Yes: Alert, Oriented Labs: CBC, BMP 11/20/17 06:10 11/20/17 06:10 INR, PTT INR 1.23 (0.83-1.09) H 11/17/17 15:50 Assessment/Plan Problem List - Problems (1) Venous stasis ulcers of both lower extremities Code(s): I83.019 - VARICOSE VEINS OF RIGHT LOWER EXTREMITY W ULCER OF UNSP SITE ; I83.029 - VARICOSE VEINS OF LEFT LOWER EXTREMITY W ULCER OF UNSP SITE (2) Bilateral lower leg cellulitis Code(s): L03.116 - CELLULITIS OF LEFT LOWER LIMB; L03.115 - CELLULITIS OF RIGHT LOWER LIMB (3) Diastolic CHF Code(s): I50.30 - UNSPECIFIED DIASTOLIC (CONGESTIVE) HEART FAILURE (4) Lymphedema of both lower extremities Code(s): I89.0 - LYMPHEDEMA, NOT ELSEWHERE CLASSIFIED (5) Morbid obesity Code(s): E66.01 - MORBID (SEVERE) OBESITY DUE TO EXCESS CALORIES (6) Renal insufficiency Code(s): N28.9 - DISORDER OF KIDNEY AND URETER, UNSPECIFIED (7) Congestive heart failure Code(s): I50.9 - HEART FAILURE, UNSPECIFIED Assessment/Plan 57 y.o. male with PMH of LE chronic non-healing venous stasis ulcers with lymphedema presenting with increased foul smelling ulcers from legs Infected B/L LE venous stasis ulcers LE lymphedema CHF Anemia CKD plan continue current abx wound care vanco started at lower dose will recheck vanco trough tomorrow
[2017-11-26] MEDS ORDERED: PIPERACILLIN/TAZOBACTAM 2.25 GM VIAL IVPB ONE ×3 (09:21→20:20)
[2017-11-26] MEDS ORDERED: DEXTROSE 5%-WATER - 50 ML IVPB ONE ×3 (09:22→20:21)
[2017-11-26] MEDS: ALLOPURINOL 100 MG TABLET (FP) PO SCH ×2 (09:26→21:56)
[2017-11-26] MEDS: predniSONE 5 MG TABLET (UD) PO SCH (09:26)
[2017-11-26] MEDS: FUROSEMIDE 40 MG TABLET (FP) PO SCH (09:26)
[2017-11-26] MEDS: PIPERACILLIN/TAZOB 2.25 GM 2.25 GM in DEXTROSE 5%-WATER - 50 ML IVPB SCH ×3 (09:26→20:38)
--- NOTE | 2017-11-26 15:49 | PN ---
Progress Note, Physician History of Present Illness: doing well - Current Medication List Current Medications: Active Medications Allopurinol (Zyloprim -) 100 mg PO BID [facility] Last Admin: 11/26/17 09:26 Dose: 100 mg Furosemide (Lasix -) 40 mg PO DAILY [facility] Last Admin: 11/26/17 09:26 Dose: 40 mg Piperacillin Sod/Tazobactam (Sod 2.25 gm/ Dextrose) 50 mls @ 100 mls/hr IVPB Q6H-IV [facility]; Protocol Last Admin: 11/26/17 15:35 Dose: 100 mls/hr Vancomycin HCl 750 mg/ (Dextrose) 250 mls @ 100 mls/hr IVPB Q24H [facility]; Protocol Last Admin: 11/25/17 15:58 Dose: 100 mls/hr Prednisone (Deltasone -) 5 mg PO DAILY [facility] Last Admin: 11/26/17 09:26 Dose: 5 mg - Objective Vital Signs: Vital Signs Temperature 97.6 F 11/26/17 14:53 Pulse Rate 73 11/26/17 14:53 Respiratory Rate 18 11/26/17 14:53 Blood Pressure 104/61 11/26/17 14:53 O2 Sat by Pulse Oximetry (%) 98 11/24/17 09:00 Constitutional: Yes: No Distress HENT: Yes: Atraumatic Neck: Yes: Supple Cardiovascular: Yes: Regular Rate and Rhythm Respiratory: Yes: CTA Bilaterally Gastrointestinal: Yes: Normal Bowel Sounds Extremities: Yes: WNL Neurological: Yes: Alert, Oriented Labs: CBC, BMP 11/20/17 06:10 11/20/17 06:10 INR, PTT INR 1.23 (0.83-1.09) H 11/17/17 15:50 Problem List - Problems (1) Venous stasis ulcers of both lower extremities Assessment/Plan: on iv abx wound care, dressing change id on board Code(s): I83.019 - VARICOSE VEINS OF RIGHT LOWER EXTREMITY W ULCER OF UNSP SITE ; I83.029 - VARICOSE VEINS OF LEFT LOWER EXTREMITY W ULCER OF UNSP SITE (2) Diastolic CHF Assessment/Plan: on lasix Code(s): I50.30 - UNSPECIFIED DIASTOLIC (CONGESTIVE) HEART FAILURE
[2017-11-26] MEDS ORDERED: PT OWN MED DRAWER 7, Y5N ONE (17:09)
[2017-11-26] MEDS: VANCOMYCIN 750 MG in DEXTROSE 5%-WATER - 250 ML IVPB SCH (17:17)
[2017-11-27] MEDS ORDERED: PIPERACILLIN/TAZOBACTAM 2.25 GM VIAL IVPB ONE ×4 (01:31→20:34)
[2017-11-27] MEDS ORDERED: DEXTROSE 5%-WATER - 50 ML IVPB ONE ×4 (01:31→20:34)
[2017-11-27] MEDS: PIPERACILLIN/TAZOB 2.25 GM 2.25 GM in DEXTROSE 5%-WATER - 50 ML IVPB SCH ×4 (02:14→21:00)
[2017-11-27] MEDS: FUROSEMIDE 40 MG TABLET (FP) PO SCH (09:16)
[2017-11-27] MEDS: ALLOPURINOL 100 MG TABLET (FP) PO SCH ×2 (09:16→22:52)
[2017-11-27] MEDS: predniSONE 5 MG TABLET (UD) PO SCH (09:16)
[2017-11-27 13:15] VITALS: BMI 34.2
--- NOTE | 2017-11-27 13:41 | PN ---
Progress Note, Physician History of Present Illness: patient stable no new issues - Current Medication List Current Medications: Active Medications Allopurinol (Zyloprim -) 100 mg PO BID [facility] Last Admin: 11/27/17 09:16 Dose: 100 mg Furosemide (Lasix -) 40 mg PO DAILY [facility] Last Admin: 11/27/17 09:16 Dose: 40 mg Piperacillin Sod/Tazobactam (Sod 2.25 gm/ Dextrose) 50 mls @ 100 mls/hr IVPB Q6H-IV [facility]; Protocol Last Admin: 11/27/17 09:15 Dose: 100 mls/hr Vancomycin HCl 750 mg/ (Dextrose) 250 mls @ 100 mls/hr IVPB Q24H [facility]; Protocol Last Admin: 11/26/17 17:17 Dose: 100 mls/hr Prednisone (Deltasone -) 5 mg PO DAILY [facility] Last Admin: 11/27/17 09:16 Dose: 5 mg - Objective Vital Signs: Vital Signs Temperature 98.4 F 11/27/17 10:00 Pulse Rate 67 11/27/17 10:00 Respiratory Rate 20 11/27/17 10:00 Blood Pressure 136/73 11/27/17 10:00 O2 Sat by Pulse Oximetry (%) 98 11/24/17 09:00 Constitutional: Yes: No Distress, Calm Cardiovascular: Yes: Regular Rate and Rhythm Respiratory: Yes: Regular, CTA Bilaterally Gastrointestinal: Yes: Normal Bowel Sounds, Soft Musculoskeletal: Yes: WNL Extremities: Yes: Other Wound/Incision: Yes: Dressing Dry and Intact Neurological: Yes: Alert, Oriented Psychiatric: Yes: Alert, Oriented Labs: CBC, BMP 11/20/17 06:10 11/20/17 06:10 INR, PTT INR 1.23 (0.83-1.09) H 11/17/17 15:50 Assessment/Plan Problem List - Problems (1) Venous stasis ulcers of both lower extremities Code(s): I83.019 - VARICOSE VEINS OF RIGHT LOWER EXTREMITY W ULCER OF UNSP SITE ; I83.029 - VARICOSE VEINS OF LEFT LOWER EXTREMITY W ULCER OF UNSP SITE (2) Bilateral lower leg cellulitis Code(s): L03.116 - CELLULITIS OF LEFT LOWER LIMB; L03.115 - CELLULITIS OF RIGHT LOWER LIMB (3) Diastolic CHF Code(s): I50.30 - UNSPECIFIED DIASTOLIC (CONGESTIVE) HEART FAILURE (4) Lymphedema of both lower extremities Code(s): I89.0 - LYMPHEDEMA, NOT ELSEWHERE CLASSIFIED (5) Morbid obesity Code(s): E66.01 - MORBID (SEVERE) OBESITY DUE TO EXCESS CALORIES (6) Renal insufficiency Code(s): N28.9 - DISORDER OF KIDNEY AND URETER, UNSPECIFIED (7) Congestive heart failure Code(s): I50.9 - HEART FAILURE, UNSPECIFIED Assessment/Plan 57 y.o. male with PMH of LE chronic non-healing venous stasis ulcers with lymphedema presenting with increased foul smelling ulcers from legs Infected B/L LE venous stasis ulcers LE lymphedema CHF Anemia CKD plan continue current abx wound care will recheck vanco trough today will decide the dose after the trough will need abx for another 3 more days then will switch to oral
--- NOTE | 2017-11-27 17:48 | PN ---
Progress Note, Physician History of Present Illness: doing well - Current Medication List Current Medications: Active Medications Allopurinol (Zyloprim -) 100 mg PO BID [facility] Last Admin: 11/27/17 09:16 Dose: 100 mg Furosemide (Lasix -) 40 mg PO DAILY [facility] Last Admin: 11/27/17 09:16 Dose: 40 mg Piperacillin Sod/Tazobactam (Sod 2.25 gm/ Dextrose) 50 mls @ 100 mls/hr IVPB Q6H-IV [facility]; Protocol Last Admin: 11/27/17 17:04 Dose: 100 mls/hr Vancomycin HCl 750 mg/ (Dextrose) 250 mls @ 100 mls/hr IVPB Q24H [facility]; Protocol Last Admin: 11/26/17 17:17 Dose: 100 mls/hr Prednisone (Deltasone -) 5 mg PO DAILY [facility] Last Admin: 11/27/17 09:16 Dose: 5 mg - Objective Vital Signs: Vital Signs Temperature 97.3 F L 11/27/17 15:00 Pulse Rate 85 11/27/17 15:00 Respiratory Rate 20 11/27/17 15:00 Blood Pressure 132/79 11/27/17 15:00 O2 Sat by Pulse Oximetry (%) 98 11/24/17 09:00 Constitutional: Yes: No Distress HENT: Yes: Atraumatic Neck: Yes: Supple Cardiovascular: Yes: Regular Rate and Rhythm Respiratory: Yes: CTA Bilaterally Gastrointestinal: Yes: Normal Bowel Sounds Extremities: Yes: Other (b/l porfirio cellulitis) Neurological: Yes: Alert, Oriented Labs: CBC, BMP 11/20/17 06:10 11/20/17 06:10 INR, PTT INR 1.23 (0.83-1.09) H 11/17/17 15:50 Problem List - Problems (1) Venous stasis ulcers of both lower extremities Assessment/Plan: on iv abx wound care, dressing change id on board Code(s): I83.019 - VARICOSE VEINS OF RIGHT LOWER EXTREMITY W ULCER OF UNSP SITE ; I83.029 - VARICOSE VEINS OF LEFT LOWER EXTREMITY W ULCER OF UNSP SITE (2) Diastolic CHF Assessment/Plan: on lasix Code(s): I50.30 - UNSPECIFIED DIASTOLIC (CONGESTIVE) HEART FAILURE
[2017-11-27] MEDS: VANCOMYCIN 750 MG in DEXTROSE 5%-WATER - 250 ML IVPB SCH (17:49)
[2017-11-28] MEDS ORDERED: DEXTROSE 5%-WATER - 50 ML IVPB ONE ×4 (01:15→20:44)
[2017-11-28] MEDS ORDERED: PIPERACILLIN/TAZOBACTAM 2.25 GM VIAL IVPB ONE ×4 (01:15→20:43)
[2017-11-28] MEDS: PIPERACILLIN/TAZOB 2.25 GM 2.25 GM in DEXTROSE 5%-WATER - 50 ML IVPB SCH ×4 (02:08→20:53)
[2017-11-28] MEDS: ALLOPURINOL 100 MG TABLET (FP) PO SCH ×2 (09:12→21:01)
[2017-11-28] MEDS: FUROSEMIDE 40 MG TABLET (FP) PO SCH (09:12)
[2017-11-28] MEDS: predniSONE 5 MG TABLET (UD) PO SCH (09:12)
--- NOTE | 2017-11-28 13:15 | PN ---
Progress Note, Physician History of Present Illness: stable no new issues patient doing well - Current Medication List Current Medications: Active Medications Allopurinol (Zyloprim -) 100 mg PO BID [facility] Last Admin: 11/28/17 09:12 Dose: 100 mg Furosemide (Lasix -) 40 mg PO DAILY [facility] Last Admin: 11/28/17 09:12 Dose: 40 mg Piperacillin Sod/Tazobactam (Sod 2.25 gm/ Dextrose) 50 mls @ 100 mls/hr IVPB Q6H-IV [facility]; Protocol Last Admin: 11/28/17 09:11 Dose: 100 mls/hr Vancomycin HCl 750 mg/ (Dextrose) 250 mls @ 100 mls/hr IVPB Q24H [facility]; Protocol Last Admin: 11/27/17 17:49 Dose: 100 mls/hr Prednisone (Deltasone -) 5 mg PO DAILY [facility] Last Admin: 11/28/17 09:12 Dose: 5 mg - Objective Vital Signs: Vital Signs Temperature 98.2 F 11/28/17 10:00 Pulse Rate 73 11/28/17 10:00 Respiratory Rate 18 11/28/17 10:00 Blood Pressure 154/80 11/28/17 10:00 O2 Sat by Pulse Oximetry (%) 99 11/28/17 09:00 Constitutional: Yes: No Distress, Calm Cardiovascular: Yes: Regular Rate and Rhythm Respiratory: Yes: Regular, CTA Bilaterally Gastrointestinal: Yes: Normal Bowel Sounds, Soft Musculoskeletal: Yes: WNL Extremities: Yes: Other Wound/Incision: Yes: Dressing Dry and Intact Neurological: Yes: Alert, Oriented Psychiatric: Yes: Alert, Oriented Labs: CBC, BMP 11/20/17 06:10 11/20/17 06:10 INR, PTT INR 1.23 (0.83-1.09) H 11/17/17 15:50 Assessment/Plan Problem List - Problems (1) Venous stasis ulcers of both lower extremities Code(s): I83.019 - VARICOSE VEINS OF RIGHT LOWER EXTREMITY W ULCER OF UNSP SITE ; I83.029 - VARICOSE VEINS OF LEFT LOWER EXTREMITY W ULCER OF UNSP SITE (2) Bilateral lower leg cellulitis Code(s): L03.116 - CELLULITIS OF LEFT LOWER LIMB; L03.115 - CELLULITIS OF RIGHT LOWER LIMB (3) Diastolic CHF Code(s): I50.30 - UNSPECIFIED DIASTOLIC (CONGESTIVE) HEART FAILURE (4) Lymphedema of both lower extremities Code(s): I89.0 - LYMPHEDEMA, NOT ELSEWHERE CLASSIFIED (5) Morbid obesity Code(s): E66.01 - MORBID (SEVERE) OBESITY DUE TO EXCESS CALORIES (6) Renal insufficiency Code(s): N28.9 - DISORDER OF KIDNEY AND URETER, UNSPECIFIED (7) Congestive heart failure Code(s): I50.9 - HEART FAILURE, UNSPECIFIED Assessment/Plan 57 y.o. male with PMH of LE chronic non-healing venous stasis ulcers with lymphedema presenting with increased foul smelling ulcers from legs Infected B/L LE venous stasis ulcers LE lymphedema CHF Anemia CKD plan continue current abx wound care vanco trough noted continue current mgmt will need abx for another 2 more days then will switch to oral
--- NOTE | 2017-11-28 16:18 | PN ---
Progress Note, Physician History of Present Illness: doing well - Current Medication List Current Medications: Active Medications Allopurinol (Zyloprim -) 100 mg PO BID [facility] Last Admin: 11/28/17 09:12 Dose: 100 mg Furosemide (Lasix -) 40 mg PO DAILY [facility] Last Admin: 11/28/17 09:12 Dose: 40 mg Piperacillin Sod/Tazobactam (Sod 2.25 gm/ Dextrose) 50 mls @ 100 mls/hr IVPB Q6H-IV [facility]; Protocol Last Admin: 11/28/17 14:44 Dose: 100 mls/hr Vancomycin HCl 750 mg/ (Dextrose) 250 mls @ 100 mls/hr IVPB Q24H [facility]; Protocol Last Admin: 11/27/17 17:49 Dose: 100 mls/hr Prednisone (Deltasone -) 5 mg PO DAILY [facility] Last Admin: 11/28/17 09:12 Dose: 5 mg - Objective Vital Signs: Vital Signs Temperature 98.1 F 11/28/17 15:32 Pulse Rate 77 11/28/17 15:32 Respiratory Rate 18 11/28/17 15:32 Blood Pressure 114/69 11/28/17 15:32 O2 Sat by Pulse Oximetry (%) 99 11/28/17 09:00 Constitutional: Yes: No Distress HENT: Yes: Atraumatic Neck: Yes: Supple Cardiovascular: Yes: Regular Rate and Rhythm Respiratory: Yes: CTA Bilaterally Extremities: Yes: WNL Neurological: Yes: Alert, Oriented Labs: CBC, BMP 11/20/17 06:10 11/20/17 06:10 INR, PTT INR 1.23 (0.83-1.09) H 11/17/17 15:50 Problem List - Problems (1) Venous stasis ulcers of both lower extremities Assessment/Plan: on iv abx wound care, dressing change id on board Code(s): I83.019 - VARICOSE VEINS OF RIGHT LOWER EXTREMITY W ULCER OF UNSP SITE ; I83.029 - VARICOSE VEINS OF LEFT LOWER EXTREMITY W ULCER OF UNSP SITE (2) Diastolic CHF Assessment/Plan: on lasix Code(s): I50.30 - UNSPECIFIED DIASTOLIC (CONGESTIVE) HEART FAILURE
[2017-11-28] MEDS: VANCOMYCIN 750 MG in DEXTROSE 5%-WATER - 250 ML IVPB SCH (16:31)
[2017-11-29] MEDS ORDERED: DEXTROSE 5%-WATER - 50 ML IVPB ONE ×4 (01:20→21:41)
[2017-11-29] MEDS ORDERED: PIPERACILLIN/TAZOBACTAM 2.25 GM VIAL IVPB ONE ×4 (01:20→21:40)
[2017-11-29] MEDS: PIPERACILLIN/TAZOB 2.25 GM 2.25 GM in DEXTROSE 5%-WATER - 50 ML IVPB SCH ×6 (02:21→21:43)
[2017-11-29] MEDS: ALLOPURINOL 100 MG TABLET (FP) PO SCH ×2 (09:50→21:44)
[2017-11-29] MEDS: predniSONE 5 MG TABLET (UD) PO SCH (09:50)
[2017-11-29] MEDS: FUROSEMIDE 40 MG TABLET (FP) PO SCH (09:50)
--- NOTE | 2017-11-29 13:25 | PN ---
Progress Note, Physician History of Present Illness: doing well no new issues patient doing well - Current Medication List Current Medications: Active Medications Allopurinol (Zyloprim -) 100 mg PO BID [facility] Last Admin: 11/29/17 09:50 Dose: 100 mg Furosemide (Lasix -) 40 mg PO DAILY [facility] Last Admin: 11/29/17 09:50 Dose: 40 mg Piperacillin Sod/Tazobactam (Sod 2.25 gm/ Dextrose) 50 mls @ 100 mls/hr IVPB Q6H-IV [facility]; Protocol Last Admin: 11/29/17 09:51 Dose: 100 mls/hr Vancomycin HCl 750 mg/ (Dextrose) 250 mls @ 100 mls/hr IVPB Q24H [facility]; Protocol Last Admin: 11/28/17 16:31 Dose: 100 mls/hr Prednisone (Deltasone -) 5 mg PO DAILY [facility] Last Admin: 11/29/17 09:50 Dose: 5 mg - Objective Vital Signs: Vital Signs Temperature 98.1 F 11/29/17 06:00 Pulse Rate 83 11/29/17 06:00 Respiratory Rate 20 11/29/17 06:00 Blood Pressure 155/98 11/29/17 06:00 O2 Sat by Pulse Oximetry (%) 99 11/28/17 21:00 Constitutional: Yes: No Distress, Calm Cardiovascular: Yes: Regular Rate and Rhythm Respiratory: Yes: Regular, CTA Bilaterally Gastrointestinal: Yes: Normal Bowel Sounds, Soft Musculoskeletal: Yes: WNL Extremities: Yes: Other Neurological: Yes: Alert, Oriented Psychiatric: Yes: Alert, Oriented Labs: CBC, BMP 11/20/17 06:10 11/20/17 06:10 INR, PTT INR 1.23 (0.83-1.09) H 11/17/17 15:50 Assessment/Plan Problem List - Problems (1) Venous stasis ulcers of both lower extremities Code(s): I83.019 - VARICOSE VEINS OF RIGHT LOWER EXTREMITY W ULCER OF UNSP SITE ; I83.029 - VARICOSE VEINS OF LEFT LOWER EXTREMITY W ULCER OF UNSP SITE (2) Bilateral lower leg cellulitis Code(s): L03.116 - CELLULITIS OF LEFT LOWER LIMB; L03.115 - CELLULITIS OF RIGHT LOWER LIMB (3) Diastolic CHF Code(s): I50.30 - UNSPECIFIED DIASTOLIC (CONGESTIVE) HEART FAILURE (4) Lymphedema of both lower extremities Code(s): I89.0 - LYMPHEDEMA, NOT ELSEWHERE CLASSIFIED (5) Morbid obesity Code(s): E66.01 - MORBID (SEVERE) OBESITY DUE TO EXCESS CALORIES (6) Renal insufficiency Code(s): N28.9 - DISORDER OF KIDNEY AND URETER, UNSPECIFIED (7) Congestive heart failure Code(s): I50.9 - HEART FAILURE, UNSPECIFIED Assessment/Plan 57 y.o. male with PMH of LE chronic non-healing venous stasis ulcers with lymphedema presenting with increased foul smelling ulcers from legs Infected B/L LE venous stasis ulcers LE lymphedema CHF Anemia CKD plan continue current abx wound care vanco trough noted continue current mgmt patient can be discharged on monday will switch to oral abx wound improving
[2017-11-29] MEDS ORDERED: PT OWN MED DRAWER 7, Y5N ONE ×2 (15:38→21:40)
[2017-11-29] MEDS: VANCOMYCIN 750 MG in DEXTROSE 5%-WATER - 250 ML IVPB SCH (16:15)
--- NOTE | 2017-11-29 17:50 | PN ---
Progress Note, Physician History of Present Illness: doing well - Current Medication List Current Medications: Active Medications Allopurinol (Zyloprim -) 100 mg PO BID [facility] Last Admin: 11/29/17 09:50 Dose: 100 mg Furosemide (Lasix -) 40 mg PO DAILY [facility] Last Admin: 11/29/17 09:50 Dose: 40 mg Piperacillin Sod/Tazobactam (Sod 2.25 gm/ Dextrose) 50 mls @ 100 mls/hr IVPB Q6H-IV [facility]; Protocol Last Admin: 11/29/17 16:14 Dose: 100 mls/hr Vancomycin HCl 750 mg/ (Dextrose) 250 mls @ 100 mls/hr IVPB Q24H [facility]; Protocol Last Admin: 11/29/17 16:15 Dose: 100 mls/hr Prednisone (Deltasone -) 5 mg PO DAILY [facility] Last Admin: 11/29/17 09:50 Dose: 5 mg - Objective Vital Signs: Vital Signs Temperature 98 F 11/29/17 10:00 Pulse Rate 78 11/29/17 10:00 Respiratory Rate 20 11/29/17 10:00 Blood Pressure 131/78 11/29/17 10:00 O2 Sat by Pulse Oximetry (%) 99 11/28/17 21:00 Constitutional: Yes: No Distress HENT: Yes: Atraumatic Neck: Yes: Supple Cardiovascular: Yes: Regular Rate and Rhythm Respiratory: Yes: CTA Bilaterally Gastrointestinal: Yes: Normal Bowel Sounds Extremities: Yes: Other (b/l porfirio cellulitis) Neurological: Yes: Alert, Oriented Labs: CBC, BMP 11/20/17 06:10 11/20/17 06:10 INR, PTT INR 1.23 (0.83-1.09) H 11/17/17 15:50 Problem List - Problems (1) Venous stasis ulcers of both lower extremities Assessment/Plan: on iv abx wound care, dressing change id on board Code(s): I83.019 - VARICOSE VEINS OF RIGHT LOWER EXTREMITY W ULCER OF UNSP SITE ; I83.029 - VARICOSE VEINS OF LEFT LOWER EXTREMITY W ULCER OF UNSP SITE (2) Diastolic CHF Assessment/Plan: on lasix Code(s): I50.30 - UNSPECIFIED DIASTOLIC (CONGESTIVE) HEART FAILURE
[2017-11-30] MEDS ORDERED: PIPERACILLIN/TAZOBACTAM 2.25 GM VIAL IVPB ONE ×4 (03:04→21:19)
[2017-11-30] MEDS ORDERED: DEXTROSE 5%-WATER - 50 ML IVPB ONE ×3 (03:05→13:56)
[2017-11-30] MEDS: PIPERACILLIN/TAZOB 2.25 GM 2.25 GM in DEXTROSE 5%-WATER - 50 ML IVPB SCH ×4 (03:09→21:32)
--- NOTE | 2017-11-30 09:23 | PN ---
Progress Note, Physician History of Present Illness: patient stable no issues - Current Medication List Current Medications: Active Medications Allopurinol (Zyloprim -) 100 mg PO BID [facility] Last Admin: 11/29/17 21:44 Dose: 100 mg Furosemide (Lasix -) 40 mg PO DAILY [facility] Last Admin: 11/29/17 09:50 Dose: 40 mg Piperacillin Sod/Tazobactam (Sod 2.25 gm/ Dextrose) 50 mls @ 100 mls/hr IVPB Q6H-IV [facility]; Protocol Last Admin: 11/30/17 03:09 Dose: 100 mls/hr Vancomycin HCl 750 mg/ (Dextrose) 250 mls @ 100 mls/hr IVPB Q24H [facility]; Protocol Last Admin: 11/29/17 16:15 Dose: 100 mls/hr Prednisone (Deltasone -) 5 mg PO DAILY [facility] Last Admin: 11/29/17 09:50 Dose: 5 mg - Objective Vital Signs: Vital Signs Temperature 98.5 F 11/30/17 06:00 Pulse Rate 73 11/30/17 06:00 Respiratory Rate 20 11/30/17 06:00 Blood Pressure 143/81 11/30/17 06:00 O2 Sat by Pulse Oximetry (%) 99 11/29/17 21:00 Constitutional: Yes: No Distress, Calm Cardiovascular: Yes: Regular Rate and Rhythm Respiratory: Yes: Regular, CTA Bilaterally Gastrointestinal: Yes: Normal Bowel Sounds, Soft Musculoskeletal: Yes: Other Extremities: Yes: Other Wound/Incision: Yes: Dressing Dry and Intact Labs: CBC, BMP 11/20/17 06:10 11/20/17 06:10 INR, PTT INR 1.23 (0.83-1.09) H 11/17/17 15:50 Assessment/Plan Problem List - Problems (1) Venous stasis ulcers of both lower extremities Code(s): I83.019 - VARICOSE VEINS OF RIGHT LOWER EXTREMITY W ULCER OF UNSP SITE ; I83.029 - VARICOSE VEINS OF LEFT LOWER EXTREMITY W ULCER OF UNSP SITE (2) Bilateral lower leg cellulitis Code(s): L03.116 - CELLULITIS OF LEFT LOWER LIMB; L03.115 - CELLULITIS OF RIGHT LOWER LIMB (3) Diastolic CHF Code(s): I50.30 - UNSPECIFIED DIASTOLIC (CONGESTIVE) HEART FAILURE (4) Lymphedema of both lower extremities Code(s): I89.0 - LYMPHEDEMA, NOT ELSEWHERE CLASSIFIED (5) Morbid obesity Code(s): E66.01 - MORBID (SEVERE) OBESITY DUE TO EXCESS CALORIES (6) Renal insufficiency Code(s): N28.9 - DISORDER OF KIDNEY AND URETER, UNSPECIFIED (7) Congestive heart failure Code(s): I50.9 - HEART FAILURE, UNSPECIFIED Assessment/Plan 57 y.o. male with PMH of LE chronic non-healing venous stasis ulcers with lymphedema presenting with increased foul smelling ulcers from legs Infected B/L LE venous stasis ulcers LE lymphedema CHF Anemia CKD plan continue current abx wound care vanco trough noted continue current mgmt patient can be discharged on monday abx patient can go on is levaquin 750 mg daily for 2 weeks with augmentin 875 mg bid for 2 weeks
[2017-11-30] MEDS: predniSONE 5 MG TABLET (UD) PO SCH (10:32)
[2017-11-30] MEDS: FUROSEMIDE 40 MG TABLET (FP) PO SCH (10:32)
[2017-11-30] MEDS: ALLOPURINOL 100 MG TABLET (FP) PO SCH ×2 (10:32→21:33)
--- NOTE | 2017-11-30 16:58 | PN ---
Progress Note, Physician History of Present Illness: doing well - Current Medication List Current Medications: Active Medications Allopurinol (Zyloprim -) 100 mg PO BID [facility] Last Admin: 11/30/17 10:32 Dose: 100 mg Furosemide (Lasix -) 40 mg PO DAILY [facility] Last Admin: 11/30/17 10:32 Dose: 40 mg Piperacillin Sod/Tazobactam (Sod 2.25 gm/ Dextrose) 50 mls @ 100 mls/hr IVPB Q6H-IV [facility]; Protocol Last Admin: 11/30/17 14:04 Dose: 100 mls/hr Vancomycin HCl 750 mg/ (Dextrose) 250 mls @ 100 mls/hr IVPB Q24H [facility]; Protocol Last Admin: 11/29/17 16:15 Dose: 100 mls/hr Prednisone (Deltasone -) 5 mg PO DAILY [facility] Last Admin: 11/30/17 10:32 Dose: 5 mg - Objective Vital Signs: Vital Signs Temperature 98.7 F 11/30/17 09:00 Pulse Rate 78 11/30/17 09:00 Respiratory Rate 20 11/30/17 09:00 Blood Pressure 151/81 11/30/17 09:00 O2 Sat by Pulse Oximetry (%) 99 11/29/17 21:00 Constitutional: Yes: No Distress HENT: Yes: Atraumatic Neck: Yes: Supple Cardiovascular: Yes: Regular Rate and Rhythm Respiratory: Yes: CTA Bilaterally Gastrointestinal: Yes: Normal Bowel Sounds Extremities: Yes: Other (b/l porfirio cellulitis) Neurological: Yes: Alert, Oriented Labs: CBC, BMP 11/20/17 06:10 11/20/17 06:10 INR, PTT INR 1.23 (0.83-1.09) H 11/17/17 15:50 Problem List - Problems (1) Venous stasis ulcers of both lower extremities Assessment/Plan: on iv abx wound care, dressing change dc tomorrow on po abx Code(s): I83.019 - VARICOSE VEINS OF RIGHT LOWER EXTREMITY W ULCER OF UNSP SITE ; I83.029 - VARICOSE VEINS OF LEFT LOWER EXTREMITY W ULCER OF UNSP SITE (2) Diastolic CHF Code(s): I50.30 - UNSPECIFIED DIASTOLIC (CONGESTIVE) HEART FAILURE
[2017-11-30] MEDS ORDERED: PT OWN MED DRAWER 7, Y5N ONE (19:31)
[2017-11-30] MEDS: VANCOMYCIN 750 MG in DEXTROSE 5%-WATER - 250 ML IVPB SCH (19:36)
[2017-12-01] MEDS ORDERED: PIPERACILLIN/TAZOBACTAM 2.25 GM VIAL IVPB ONE ×2 (02:22→10:37)
[2017-12-01] MEDS ORDERED: DEXTROSE 5%-WATER - 50 ML IVPB ONE ×2 (02:22→10:37)
[2017-12-01] MEDS: PIPERACILLIN/TAZOB 2.25 GM 2.25 GM in DEXTROSE 5%-WATER - 50 ML IVPB SCH ×3 (02:28→10:48)
[2017-12-01] MEDS: predniSONE 5 MG TABLET (UD) PO SCH (10:39)
[2017-12-01] MEDS: FUROSEMIDE 40 MG TABLET (FP) PO SCH (10:39)
[2017-12-01] MEDS: ALLOPURINOL 100 MG TABLET (FP) PO SCH (10:40)
--- NOTE | 2017-12-01 11:27 | DS ---
Physical Examination Vital Signs: Vital Signs Temperature 97.6 F 12/01/17 06:00 Pulse Rate 89 12/01/17 06:00 Respiratory Rate 20 12/01/17 06:00 Blood Pressure 157/97 12/01/17 06:00 O2 Sat by Pulse Oximetry (%) 99 11/30/17 22:00 Constitutional: Yes: No Distress Eyes: Yes: Conjunctiva Clear HENT: Yes: Atraumatic Neck: Yes: Supple Cardiovascular: Yes: Regular Rate and Rhythm Respiratory: Yes: CTA Bilaterally Gastrointestinal: Yes: Normal Bowel Sounds Extremities: Yes: Other (cellulitis b/l porfirio) Labs: CBC, BMP 11/20/17 06:10 11/20/17 06:10 Discharge Summary Reason For Visit: VENOUS STASIS ULCERS OF BOTH LOWER EXTREMITIES Current Active Problems Venous stasis ulcers of both lower extremities (Acute) - Instructions Disposition: HOME - Home Medications Comprehensive Discharge Medication List: Ambulatory Orders Allopurinol [Zyloprim -] 100 mg PO BID 11/21/14 Furosemide [Lasix] 40 mg PO DAILY 06/24/16 Prednisone 5 mg PO DAILY 09/15/17 Amoxicillin/Potassium Clav [Augmentin 875-125 Tablet] 1 each PO BID #28 tablet 11/30/17
--- NOTE | 2017-12-01 12:52 | PN ---
Progress Note, Physician History of Present Illness: patient stable no issues - Current Medication List Current Medications: Active Medications Allopurinol (Zyloprim -) 100 mg PO BID [facility] Last Admin: 12/01/17 10:40 Dose: 100 mg Furosemide (Lasix -) 40 mg PO DAILY [facility] Last Admin: 12/01/17 10:39 Dose: 40 mg Piperacillin Sod/Tazobactam (Sod 2.25 gm/ Dextrose) 50 mls @ 100 mls/hr IVPB Q6H-IV [facility]; Protocol Last Admin: 12/01/17 10:48 Dose: Not Given Vancomycin HCl 750 mg/ (Dextrose) 250 mls @ 100 mls/hr IVPB Q24H [facility]; Protocol Last Admin: 11/30/17 19:36 Dose: 100 mls/hr Prednisone (Deltasone -) 5 mg PO DAILY [facility] Last Admin: 12/01/17 10:39 Dose: 5 mg - Objective Vital Signs: Vital Signs Temperature 97.6 F 12/01/17 06:00 Pulse Rate 89 12/01/17 06:00 Respiratory Rate 20 12/01/17 06:00 Blood Pressure 157/97 12/01/17 06:00 O2 Sat by Pulse Oximetry (%) 99 11/30/17 22:00 Constitutional: Yes: No Distress, Calm Cardiovascular: Yes: Regular Rate and Rhythm Respiratory: Yes: Regular, CTA Bilaterally Gastrointestinal: Yes: Normal Bowel Sounds, Soft Musculoskeletal: Yes: WNL Extremities: Yes: Other Neurological: Yes: Alert, Oriented Psychiatric: Yes: Alert Labs: CBC, BMP 11/20/17 06:10 11/20/17 06:10 INR, PTT INR 1.23 (0.83-1.09) H 11/17/17 15:50 Assessment/Plan Problem List - Problems (1) Venous stasis ulcers of both lower extremities Code(s): I83.019 - VARICOSE VEINS OF RIGHT LOWER EXTREMITY W ULCER OF UNSP SITE ; I83.029 - VARICOSE VEINS OF LEFT LOWER EXTREMITY W ULCER OF UNSP SITE (2) Bilateral lower leg cellulitis Code(s): L03.116 - CELLULITIS OF LEFT LOWER LIMB; L03.115 - CELLULITIS OF RIGHT LOWER LIMB (3) Diastolic CHF Code(s): I50.30 - UNSPECIFIED DIASTOLIC (CONGESTIVE) HEART FAILURE (4) Lymphedema of both lower extremities Code(s): I89.0 - LYMPHEDEMA, NOT ELSEWHERE CLASSIFIED (5) Morbid obesity Code(s): E66.01 - MORBID (SEVERE) OBESITY DUE TO EXCESS CALORIES (6) Renal insufficiency Code(s): N28.9 - DISORDER OF KIDNEY AND URETER, UNSPECIFIED (7) Congestive heart failure Code(s): I50.9 - HEART FAILURE, UNSPECIFIED Assessment/Plan 57 y.o. male with PMH of LE chronic non-healing venous stasis ulcers with lymphedema presenting with increased foul smelling ulcers from legs Infected B/L LE venous stasis ulcers LE lymphedema CHF Anemia CKD plan continue current abx wound care vanco trough noted continue current mgmt patient can be discharged on monday abx patient can go on is levaquin 750 mg daily for 2 weeks with augmentin 875 mg bid for 2 weeks
[2017-12-01 17:41] VITALS: BP 140/94; PULSE 78; TEMP 98.2
== END 2017-12-01 15:28 | disposition home or self-care (01) | DRG 300 ==
LOC: JER 13:47 → JERBED 16:02 → J6S 20:44
PROVIDERS: ADMIT Internal Medicine; ATTEND Internal Medicine
DX: I83.008 Varicose veins of unspecified lower extremity with ulcer other part of lower leg (principal); I13.0 Hypertensive heart and chronic kidney disease with heart failure and stage 1 through stage 4 chronic kidney disease, or unspecified chronic kidney disease; I50.32 Chronic diastolic (congestive) heart failure; L03.115 Cellulitis of right lower limb; L03.116 Cellulitis of left lower limb; Z68.33 Body mass index [BMI] 33.0-33.9, adult; I27.20 Pulmonary hypertension, unspecified; N18.9 Chronic kidney disease, unspecified; D63.8 Anemia in other chronic diseases classified elsewhere; I89.0 Lymphedema, not elsewhere classified; E66.9 Obesity, unspecified
CPT/HCPCS: 29581-LT; 29581-RT; 36415; 71045-TC-FY; 80048; 80053; 81003; 81015; 82803; 83605; 84484; 85025; 85610; 85730; 87040; 87081; 87086; 87186; 93005; 93010; 99285-25; A6196; G0463-25; G0480; J1644

== ENCOUNTER 2018-06-22 09:09 | Observation (INO) | payer BC, OTHER ==
--- NOTE | 2018-06-22 10:47 | PDOC ---
History of Present Illness - General Chief Complaint: Chest Pain Stated Complaint: CHEST DISCOMFORT / COUGH / WEAKNESS Time Seen by Provider: 06/22/18 09:31 - History of Present Illness Initial Comments: 06/22/18 10:48 57 M with h/o CHF, obesity, chronic anema, BLE lymphedema c/b chronic venous stasis ulcers, presenting to ED with cough x 3 days. Pt endorses intermittent cough productive of greenish brown sputum. Denies any F/C. Denies chest pain or shortness of breath. Pt also reports hoarseness but denies any sore throat. Denies tongue/throat swelling. Pt has chronic BLE swelling 2/2 lymphedema. Denies any increase in the swelling recently. No orthopnea. No RUSSELL. No recent travel/immobilization. Past History - Past Medical History Allergies/Adverse Reactions: Allergies Allergy/AdvReac Type Severity Reaction Status Date / Time Egg Derived Allergy Unknown Verified 02/09/18 09:52 [place] And Derivatives Allergy Verified 02/09/18 09:52 lactose AdvReac Verified 02/09/18 09:52 NKDA Allergy Uncoded 02/09/18 09:52 Home Medications: Ambulatory Orders Allopurinol [Zyloprim -] 100 mg PO BID 11/21/14 Furosemide [Lasix] 40 mg PO DAILY 06/24/16 Allopurinol 300 mg PO DAILY 06/07/18 Folic Acid 1 mg PO DAILY 06/07/18 Multivitamin 1 tab PO DAILY 06/07/18 Oscal 250 mg+D - 1 tab PO DAILY 06/07/18 Anemia: No Asthma: No Cancer: No Cardiac Disorders: No CVA: No COPD: No CHF: Yes DVT: No Dementia: No Diabetes: No GI Disorders: No Disorders: No HTN: Yes Hypercholesterolemia: No Liver Disease: No Seizures: No Thyroid Disease: No - Surgical History Abdominal Surgery: No Appendectomy: Yes Cardiac Surgery: No Cholecystectomy: No Lung Surgery: No Neurologic Surgery: No Orthopedic Surgery: No - Suicide/Smoking/Psychosocial Hx Smoking Status: No Smoking History: Never smoked Have you smoked in the past 12 months: No Number of Cigarettes Smoked Daily: 0 Information on smoking cessation initiated: No Hx Alcohol Use: No Drug/Substance Use Hx: No Substance Use Type: None Hx Substance Use Treatment: No Review of Systems - Review of Systems Comments:: 06/22/18 10:50 GENERAL/CONSTITUTIONAL: No fever or chills. No weakness. HEAD, EYES, EARS, NOSE AND THROAT: No change in vision. No ear pain or discharge. No sore throat. CARDIOVASCULAR: No chest pain, no shortness of breath, no loss of consciousness RESPIRATORY: + cough, no wheezing, or hemoptysis. GASTROINTESTINAL: No nausea, vomiting, diarrhea or constipation. GENITOURINARY: No dysuria, frequency, or change in urination. MUSCULOSKELETAL: No joint or muscle swelling or pain. No neck or back pain. SKIN: No rash NEUROLOGIC: No vertigo, no change in strength/sensation. ENDOCRINE: No increased thirst. No abnormal weight change. HEMATOLOGIC/LYMPHATIC: No anemia, easy bleeding, or history of blood clots. ALLERGIC/IMMUNOLOGIC: No hives or skin allergy. *Physical Exam - Vital Signs Last Vital Signs Temp Pulse Resp BP Pulse Ox 98.0 F 78 16 115/64 96 06/22/18 09:28 06/22/18 09:28 06/22/18 09:28 06/22/18 09:28 06/22/18 09:28 - Physical Exam Comments: 06/22/18 10:51 GENERAL: Awake, alert, and fully oriented, in no acute distress. HEAD: No signs of trauma EYES: PERRLA, EOMI, sclera anicteric, conjunctiva clear ENT: Auricles normal inspection, hearing grossly normal, nares patent, oropharynx clear without exudates. Moist mucosa NECK: Nontender, no stepoffs, Normal ROM, supple, no lymphadenopathy, JVD, or masses LUNGS: Breath sounds equal, clear to auscultation bilaterally. No wheezes, and no crackles HEART: Regular rate and rhythm, normal S1 and S2, no murmurs, rubs or gallops ABDOMEN: Soft, nontender, normoactive bowel sounds. No guarding, no rebound. No masses EXTREMITIES: + BLE lymphedema, No clubbing or cyanosis. No cords, erythema, or tenderness NEUROLOGICAL: Cranial nerves II through XII intact. 5/5 strength and sensation in all extremities, Normal speech, normal gait, normal cerebellar function SKIN: Warm, Dry, normal turgor, no rashes or lesions noted. Moderate Sedation - Procedure Monitoring Vital Signs: Procedure Monitoring Vital Signs Temperature 98.0 F 06/22/18 09:28 Pulse Rate 78 06/22/18 09:28 Respiratory Rate 16 06/22/18 09:28 Blood Pressure 115/64 06/22/18 09:28 O2 Sat by Pulse Oximetry (%) 96 06/22/18 09:28 Heart Score/ECG Review - ECG Impressions Comment:: 06/22/18 10:52 NSR, no SINGH/STDs, TWI in lateral leads (present on prior EKG), QTc 496, left axis deviation ED Treatment Course - LABORATORY CBC & Chemistry Diagram: 06/22/18 10:15 06/22/18 10:15 - RADIOLOGY Radiology Studies Ordered: Category Date Time Status CHEST PA & LAT [RAD] Stat Radiology 06/22/18 09:56 Completed Medical Decision Making - Medical Decision Making 06/22/18 10:52 57 M with cough productive of brown/green sputum x 3 days. Will r/o PNA. Pt with clear lungs, chronic unchanged lymphedema. No evidence of volume overload. - Labs, trop, BNP - CXR 06/22/18 11:34 Pt with clear CXR EKG shows TWI in lateral leads, present on prior EKG BNP stable since prior visit Trop slightly elevated at 0.08. Pt reassessed - denies any active chest pain but states he had some pressure like pain that he thought was associated with cough previously Will admit to tele obs for trending of trops *DC/Admit/Observation/Transfer Diagnosis at time of Disposition: Troponin level elevated - Discharge Dispostion Decision to Admit order: Yes - Referrals - Patient Instructions - Post Discharge Activity - Attestations Physician Attestion: 06/22/18 11:44 I, Dr. Raphael Johns MD, attest that this document has been prepared under my direction and personally reviewed by me in its entirety. I further attest, that it accurately reflects all work, treatment, procedures and medical decision -making performed by me.
[2018-06-22 11:05] LABS: BASO % 0.5 % (0-2.0); EOS % 3.8 % (0-4.5); HEMATOCRIT 30.6 % (35.4-49); HEMOGLOBIN 10.1 GM/dL (11.7-16.9); LYMPH % 24.1 % (8-40); MCH 28.6 pg (25.7-33.7); MEAN CELL VOLUME 86.6 fl (80-96); MEAN PLT VOLUME 9.3 fl (7.5-11.1); MONO % 11.3 % (3.8-10.2); NEUT % 60.3 % (42.8-82.8); PLATELET COUNT 120 K/MM3 (134-434); RBC 3.53 M/mm3 (4.00-5.60); RDW 16.8 % (11.9-15.9)
[2018-06-22 11:22] LABS: ALBUMIN 2.8 g/dl (3.4-5.0); ALK PHOS 106 U/L (45-117); ANION GAP 4 MMOL/L (8-16); BILIRUBIN,TOTAL 0.4 mg/dL (0.2-1); BLOOD UREA NITROGEN 55 mg/dL (7-18); CALCIUM 7.2 mg/dL (8.5-10.1); CHLORIDE 108 mmol/L (98-107); CO2 27 mmol/L (21-32); CREATININE 2.4 mg/dL (0.55-1.3); GLUCOSE,RANDOM 78 mg/dL (74-106); N-TERMINAL BNP 1125.3 pg/ml (5-125); POTASSIUM 4.7 mmol/L (3.5-5.1); SGOT/AST 7 U/L (15-37); SGPT/ALT < 6 U/L (13-61); SODIUM 139 mmol/L (136-145); TOT PROT 9.3 g/dl (6.4-8.2)
[2018-06-22] MEDS ORDERED: ASPIRIN 325 MG TABLET PO ONE (11:44)
[2018-06-22] MEDS ORDERED: ASPIRIN 325 MG TABLET ONE (11:48)
--- NOTE | 2018-06-22 13:01 | HP ---
CHIEF COMPLAINT: Cough PCP: Dr. Foote Sound Art Instructor: Dr. Gayle Wound Care: Dr. Eric HISTORY OF PRESENT ILLNESS: 57yo M with significant h/o of systolic CHF, b/l lymphedema and chronic wounds originally presented today with productive cough of 3 days duration. Pt was originally here visiting his wound clinic for routine follow-up and he reported feeling unwell and was sent to the ER for further evaluation. Pt endorses having this cough and voice hoarseness for the full 3 days duration. Denies any fever/chills, n/v/d/c, shortness of breath, ear pain, sick contacts, blurry vision, palpitations, abdominal pain, dysuria, polyuria, back pain, neck pain. On evaluation of the ED there was mention of chest discomfort, however on my examination the pt denied any chest pain/discomfort. Pt denied seeing a him analyst in the past and has no have any ischemic workup since his 2014 stress test noted to have inferior regional ischemia. Recent Travel: Denies PAST MEDICAL HISTORY: systolic CHF (Last echo 06/2016 - Mild LV dilation, Decreased Lv function ( mild), Mod TR, RV pressures increased, Mild MR Anemia of chronic disease B/L Lymphedema Gout Rheumatoid Arthritis (not on maintenance medications?) PAST SURGICAL HISTORY: Appendectomy per EMR many years prior Social History: Smoking: Denies Alcohol: Denies Drugs: Denies Lives at home with who is bed-bound 2/2 to weight; ambulates without assistance; independent in ADLs Family History: Allergies Egg Derived Allergy (Unknown, Verified 02/09/18 09:52) [place] And Derivatives Allergy (Verified 02/09/18 09:52) lactose Adverse Reaction (Verified 02/09/18 09:52) HOME MEDICATIONS: Home Medications Medication Instructions Recorded Furosemide [Lasix] 40 mg PO DAILY 06/24/16 Allopurinol 300 mg PO DAILY 06/07/18 Folic Acid 1 mg PO DAILY 06/07/18 Multivitamin 1 tab PO DAILY 06/07/18 Oscal 250 mg+D - 1 tab PO MOWEFR 06/07/18 REVIEW OF SYSTEMS As per HPI PHYSICAL EXAMINATION Vital Signs - 24 hr 06/22/18 09:28 Temperature 98.0 F Pulse Rate 78 Respiratory 16 Rate Blood Pressure 115/64 O2 Sat by Pulse 96 Oximetry (%) GENERAL: NAd, awake, alert, and fully oriented HEENT: NC/At, IGOR, sclera anicteric, MMM, no posterior oropharynx erythema or exudates NECK: No JVD LUNGS: CTA bilaterally. No wheezes, and no crackles. No accessory muscle use. HEART: RRR, normal S1 and S2 with 2/6 systolic murmur in LLSB ABDOMEN: Soft, NT/ND, normoactive bowel sounds, no guarding MUSCULOSKELETAL: No CVA tenderness. EXTREMITIES: Lower extremities wrapped in LEAH-bandage so unable to fully examine. No calf tenderness, chronic edema noted on feet and upper legs. strong radial pulses b/l. PSYCHIATRIC: Cooperative. Good eye contact. Appropriate mood and affect. SKIN: Warm, dry, no rashes Laboratory Results 06/22/18 06/22/18 10:15 10:15 WBC 3.0 L RBC 3.53 L Hgb 10.1 L Hct 30.6 L D MCV 86.6 MCH 28.6 MCHC 33.0 RDW 16.8 H Plt Count 120 L D MPV 9.3 Absolute Neuts (auto) 1.8 Neutrophils % 60.3 Lymphocytes % 24.1 D Monocytes % 11.3 H Eosinophils % 3.8 Basophils % 0.5 Nucleated RBC % 0 Sodium 139 Potassium 4.7 Chloride 108 H Carbon Dioxide 27 Anion Gap 4 L BUN 55 H Creatinine 2.4 H Creat Clearance w eGFR 27.85 Random Glucose 78 Calcium 7.2 L Total Bilirubin 0.4 AST 7 L ALT < 6 L Alkaline Phosphatase 106 Creatine Kinase 190 Creatine Kinase Index 0.7 CK-MB (CK-2) 1.5 Troponin I 0.08 H B-Natriuretic Peptide 1125.3 H Total Protein 9.3 H Albumin 2.8 L ECG - Sinus rhythm with 1st-degree AV block 70bpm, LAD, poor R-wave progression , no SINGH, no STD, Lateral TWI, QTc 496, WA 210ms *Upon evaluation of previous ECG 11/2017, new AV block noted with other changes pre-existing ASSESSMENT/PLAN: Elevated troponin Pancytopenia Viral URI CKD Stage 3B (gfr 33) Elongated Qtc Chronic Wounds (stable) Systolic CHF (not in exacerbation) --Given pt's minimal elevation of troponin in setting of CKD will obtain second cardiac profile and echocardiogram (previous 2 years prior) --If pt's troponin remains the same or decreases alongside of stable echocardiogram and lack of symptoms, can discharge later today --Cardiac monitoring --Unclear of why pt is not on B-blockade --Can initiate Toprol XL 25mg qdaily PO and titrate as tolerated --Likely Viral URI --Flu swab ordered --CXR reviewed --Otherwise supportive therapy --Pancytopenia resulting from chronic disease process and viral URI; monitor for now --CKD stable; avoid nephrotoxic agents --Avoid QT prolonging agents --Pt takes Alginase and LEAH wraps for chronic wounds per wound center Medications: Reconciled from patient FEN: Fluids: Avoid Electrolyte abnormalities: Monitor for HyperK Nutrition: Fat/sodium controlled diet PPX: DVT - Heparin SQ TID GI - Not indicated Dispo: Observation telemetry; plan as above Case discussed with Dr. Bob Walls, DO - IM PGY-2
[2018-06-22] MEDS ORDERED: HEPARIN NA (PORCINE) 5,000 UNITS/ML 1ML VIAL ONE (13:25)
[2018-06-22] MEDS ORDERED: METOPROLOL TARTRATE 25 MG TABLET (FP) ONE (13:25)
[2018-06-22] MEDS: HEPARIN NA (PORCINE) 5,000 UNITS/ML 1ML VIAL SQ SCH (13:35)
[2018-06-22] MEDS: metoPROLOL SUCCINATE 25 MG TAB.SR.24H (FP) PO SCH (13:35)
--- NOTE | 2018-06-22 14:16 | EKG ---
Test Reason : Blood Pressure : / mmHG Vent. Rate : 071 BPM Atrial Rate : 277 BPM P-R Int : 000 ms QRS Dur : 108 ms QT Int : 534 ms P-R-T Axes : 053 -42 042 degrees QTc Int : 580 ms NORMAL SINUS RHYTHM with ATRIAL PREMATURE CONTRACTIONS LEFT AXIS DEVIATION LOW VOLTAGE QRS CANNOT RULE OUT ANTERIOR INFARCT , AGE UNDETERMINED PROLONGED QT ABNORMAL ECG BASELINE ARTIFACT Confirmed by MARITZA ORANTES MD ([id number]) on 06/22/2018 2:16:10 PM Referred By: Confirmed By:MARITZA ORANTES MD
--- NOTE | 2018-06-22 14:56 | ECHO ---
Name: STU العلي, III Exam:Adult Echocardiogram Study Date: 06/22/2018 01:49 PM Age: 57 yrs Reason For Study: LV Function Height: 75 in Weight: 260 lb BSA: 2.5 m2 MMode/2D Measurements & Calculations IVSd: 1.4 cm ACS: 2.1 cm LVIDd: 3.9 cm LVIDs: 2.9 cm LVPWd: 1.7 cm EDV(Teich): 64.7 ml LVOT diam: 2.1 cm ESV(Teich): 31.0 ml RV S Armond: 13.9 cm/sec Doppler Measurements & Calculations MV E max armond: 120.6 cm/sec MR max armond: 250.4 cm/sec MV A max armond: 57.0 cm/sec MR max P.5 mmHg MV E/A: 2.1 Med Peak E' Armond: 7.6 cm/sec Med E/e': 15.9 Lat Peak E' Armond: 8.8 cm/sec Lat E/e': 13.8 Left Ventricle Left ventricular systolic function is mildly reduced. Ejection Fraction = 45-50%. There is mild globa l hypokinesis of the left ventricle. Right Ventricle The right ventricle is normal in size and function. The right ventricular systolic function is normal . Atria Normal left and right atrial size and function. Mitral Valve There is mild mitral valve thickening. There is no mitral valve stenosis. There is mild mitral regurg itation. Tricuspid Valve The tricuspid valve is normal in structure and function. There is mild tricuspid regurgitation. Aortic Valve The aortic valve opens well. No hemodynamically significant valvular aortic stenosis. Mild aortic regurgitation. Pulmonic Valve The pulmonic valve is not well seen, but is grossly normal. Mild pulmonic valvular regurgitation. Great Vessels The aortic root is normal size. Pericardium/Pleura There is no pericardial effusion. Interpretation Summary Left ventricular systolic function is mildly reduced. Ejection Fraction = 45-50%. There is mild global hypokinesis of the left ventricle. There is mild mitral valve thickening. There is mild mitral regurgitation. There is mild tricuspid regurgitation. Mild aortic regurgitation. There is no pericardial effusion. MD Delarosa *Chasidy 06/22/2018 02:55 PM
--- NOTE | 2018-06-22 15:03 | PN ---
Teaching Attending Note Name of Resident: Hema Walls ATTENDING PHYSICIAN STATEMENT I saw and evaluated the patient. I reviewed the resident's note and discussed the case with the resident. I agree with the resident's findings and plan as documented. SUBJECTIVE:57yo M with PMH CHF, anemia, CKD and lymphedema came to wound [facility] for regular checkup for his legs. was c/o he was not feeling well and was sent to the ER for further evaluation. c/o non productive cough x 3days. no assoc symptoms. denies CP or sob at rest or exertion. last stress test 2014. OBJECTIVE: Last Vital Signs Temp Pulse Resp BP Pulse Ox 98.0 F 78 16 115/64 96 06/22/18 09:28 06/22/18 09:28 06/22/18 09:28 06/22/18 09:28 06/22/18 09:28 General NAD CV S1 S2 RRR no murmur/rub/gallop no chest wall tenderness Lungs CTA B/L no wheezing/rales/rhonchi Abdomen soft NT/ND obses Extremities chronic lymphedema, wrapped ASSESSMENT AND PLAN: 57yo M with PMH CHF, anemia, CKD and lymphedema came to [facility] for regular checkup for his legs. was c/o he was not feeling well and was sent to the ER for further evaluation and was found to have elevated troponin 0.08 1. elevated troponin-always has slightly elevated Troponin in setting of CKD. EKG reviewed with new 1st degree block. no ST changes from prior. will trend CE Q6H and check echo for new WMA, pt does not want to stay till monday for stress testing. if above is normal can f/u with PMD on monday. will give cardiology referral. Check flu swab
[2018-06-23] MEDS: HEPARIN NA (PORCINE) 5,000 UNITS/ML 1ML VIAL SQ SCH ×2 (01:48→06:36)
[2018-06-23 06:11] LABS: HEMATOCRIT 28.8 % (35.4-49); HEMOGLOBIN 9.4 GM/dL (11.7-16.9); MCH 27.8 pg (25.7-33.7); MCHC 32.5 g/dl (32.0-35.9); MEAN CELL VOLUME 85.7 fl (80-96); MEAN PLT VOLUME 9.7 fl (7.5-11.1); PLATELET COUNT 114 K/MM3 (134-434); RBC 3.36 M/mm3 (4.00-5.60); RDW 16.9 % (11.9-15.9); WHITE BLOOD COUNT 2.7 K/mm3 (4.0-10.0)
[2018-06-23] MEDS ORDERED: HEPARIN NA (PORCINE) 5,000 UNITS/ML 1ML VIAL ONE (06:32)
[2018-06-23 06:44] LABS: ANION GAP 8 MMOL/L (8-16); BLOOD UREA NITROGEN 57 mg/dL (7-18); CALCIUM 7.2 mg/dL (8.5-10.1); CHLORIDE 111 mmol/L (98-107); CO2 24 mmol/L (21-32); CREATININE 2.1 mg/dL (0.55-1.3); GLUCOSE,RANDOM 80 mg/dL (74-106); PHOSPHOROUS 3.8 mg/dL (2.5-4.9); POTASSIUM 4.5 mmol/L (3.5-5.1); SODIUM 143 mmol/L (136-145)
[2018-06-23 08:14] VITALS: BP 134/46; PULSE 63; TEMP 98
[2018-06-23] MEDS ORDERED: ASPIRIN 81 MG CHEWABLE TABLETS PO SCH (10:00)
[2018-06-23] MEDS: metoPROLOL SUCCINATE 25 MG TAB.SR.24H (FP) PO SCH (10:12)
[2018-06-23 11:48] VITALS: BMI 33.0
--- NOTE | 2018-06-23 13:17 | DS ---
Physical Exam: SUBJECTIVE: Patient seen and examined. c/op cough now productive of whitish sputum. dneies CP, SOB, fever, chills, N/V/C/D OBJECTIVE: Vital Signs Period Temp Pulse Resp BP Sys/[place] Pulse Ox Last 24 Hr 98 F-98.5 F 59-88 18-19 105-134/46-76 96-99 PHYSICAL EXAM GENERAL: The patient is awake, alert, and fully oriented, in no acute distress. HEAD: Normal with no signs of trauma. EYES: PERRL, extraocular movements intact, sclera anicteric, conjunctiva clear. ENT: Ears normal, nares patent, oropharynx clear without exudates, moist mucous membranes. NECK: Trachea midline, full range of motion, supple. LUNGS: Breath sounds equal, clear to auscultation bilaterally, no wheezes, no crackles, no accessory muscle use. HEART: Regular rate and rhythm, S1, S2 without murmur, rub or gallop. ABDOMEN: Soft, nontender, nondistended, normoactive bowel sounds, no guarding, no rebound, no hepatosplenomegaly, no masses. EXTREMITIES: 2+ pulses, chronic lymphedema NEUROLOGICAL: Cranial nerves II through XII grossly intact. Normal speech, gait not observed. PSYCH: Normal mood, normal affect. SKIN: Warm, dry, normal turgor, no rashes or lesions noted. LABS Laboratory Results - last 24 hr 06/22/18 06/22/18 06/23/18 14:16 17:15 00:52 WBC RBC Hgb Hct MCV MCH MCHC RDW Plt Count MPV Sodium Potassium Chloride Carbon Dioxide Anion Gap BUN Creatinine Creat Clearance w eGFR Random Glucose Calcium Phosphorus Magnesium Creatine Kinase 172 Creatine Kinase Index 0.8 CK-MB (CK-2) 1.4 Troponin I 0.13 H 0.10 H Influenza A (Rapid) Negative Influenza B (Rapid) Negative 06/23/18 06/23/18 05:15 05:15 WBC 2.7 L RBC 3.36 L Hgb 9.4 L Hct 28.8 L MCV 85.7 MCH 27.8 MCHC 32.5 RDW 16.9 H Plt Count 114 L MPV 9.7 Sodium 143 Potassium 4.5 Chloride 111 H Carbon Dioxide 24 Anion Gap 8 BUN 57 H Creatinine 2.1 H Creat Clearance w eGFR 32.49 Random Glucose 80 Calcium 7.2 L Phosphorus 3.8 Magnesium 2.0 Creatine Kinase Creatine Kinase Index CK-MB (CK-2) Troponin I Influenza A (Rapid) Influenza B (Rapid) HOSPITAL COURSE: Date of Admission:06/22/18 Date of Discharge: 06/23/18 Admitting diagnosis: Elevated troponin, acute bronchitis Pre hospital course 57yo M with significant h/o of systolic CHF, b/l lymphedema and chronic wounds originally presented today with productive cough of 3 days duration. Pt was originally here visiting his wound clinic for routine follow-up and he reported feeling unwell and was sent to the ER for further evaluation. Pt endorses having this cough and voice hoarseness for the full 3 days duration. Denies any fever/chills, n/v/d/c, shortness of breath, ear pain, sick contacts, blurry vision, palpitations, abdominal pain, dysuria, polyuria, back pain, neck pain. On evaluation of the ED there was mention of chest discomfort, however on my examination the pt denied any chest pain/discomfort. Pt denied seeing a mailroom assistant in the past and has no have any ischemic workup since his 2014 stress test noted to have inferior regional ischemia. Subsequent hospital course Tele observation. troponin flat lined. 0.08-0.13- 0.1 and liekly due to CKD. echo was done which showed no WMA or changes. was started on asa and betablocker for cardioprotective benefits. pt conitnues to not have any CP. azam has acute bronchitis and will treat with Zpack. d/c home Minutes to complete discharge: 40 Discharge Summary Reason For Visit: ELEVATED TROPONIN LEVEL Current Active Problems Bronchitis, acute (Acute) Troponin level elevated (Acute) Condition: Improved - Instructions Diet, Activity, Other Instructions: You were advised to come to the ER for evaluation based on your symptoms. You are being treated for acute bronchitis You are being sent home iwdarion barnhart. take as directed You were started on medications to optimize your heart function. Take these medications daily. Follow up with your primary care doctor next week. Discuss with them the changes to your medications. Return to the hospital if you develop chest pain or if your symptoms worsen Disposition: HOME - Home Medications Comprehensive Discharge Medication List: Ambulatory Orders Furosemide [Lasix] 40 mg PO DAILY 06/24/16 Allopurinol 300 mg PO DAILY 06/07/18 Folic Acid 1 mg PO DAILY 06/07/18 Multivitamin 1 tab PO DAILY 06/07/18 Oscal 250 mg+D - 1 tab PO MOWEFR 06/07/18 Aspirin [ASA -] 81 mg PO DAILY #30 tab.chew 06/23/18 Azithromycin [Zithromax Tri-Osvaldo (3 DAYS) -] 500 mg PO DAILY #3 tablet 06/23/18 Metoprolol Succinate [Toprol XL -] 25 mg PO DAILY #30 tab.sr.24h 06/23/18 This patient is new to me today: No Emergency Visit: Yes ED Registration Date: 06/22/18 Care time: The patient presented to the Emergency Department on the above date and was hospitalized for further evaluation of their emergent condition. Critical Care patient: No - Discharge Referral Referred to [facility] No
--- NOTE | 2018-06-25 23:47 | EKG ---
Test Reason : Blood Pressure : / mmHG Vent. Rate : 070 BPM Atrial Rate : 070 BPM P-R Int : 210 ms QRS Dur : 100 ms QT Int : 460 ms P-R-T Axes : 059 -41 045 degrees QTc Int : 496 ms SINUS RHYTHM WITH 1ST DEGREE A-V BLOCK WITH PREMATURE ATRIAL COMPLEXES LEFT AXIS DEVIATION NONSPECIFIC T WAVE ABNORMALITY PROLONGED QT ABNORMAL ECG WHEN COMPARED WITH ECG OF 22-JUN-2018 09:21, NO SIGNIFICANT CHANGE WAS FOUND Confirmed by NANCI HO MD ([id number]) on 06/25/2018 11:47:06 PM Referred By: Confirmed By:NANCI HO MD
== END 2018-06-23 14:39 | disposition home or self-care (01) ==
LOC: JER 09:09 → JERBED 11:45 → J4W 06-23 06:40
PROVIDERS: ADMIT Internal Medicine; ATTEND Internal Medicine
PROC: 3E013GC Introduction of Other Therapeutic Substance into Subcutaneous Tissue, Percutaneous Approach (ICD-10-PCS; principal; 2018-06-22)
DX: R77.8 Other specified abnormalities of plasma proteins (principal); I11.0 Hypertensive heart disease with heart failure; I50.20 Unspecified systolic (congestive) heart failure; D64.89 Other specified anemias; D61.818 Other pancytopenia; J06.9 Acute upper respiratory infection, unspecified; J20.9 Acute bronchitis, unspecified; B97.89 Other viral agents as the cause of diseases classified elsewhere; I12.9 Hypertensive chronic kidney disease with stage 1 through stage 4 chronic kidney disease, or unspecified chronic kidney disease; N18.3 Chronic kidney disease, stage 3 (moderate); L97.909 Non-pressure chronic ulcer of unspecified part of unspecified lower leg with unspecified severity; E66.9 Obesity, unspecified; Z68.33 Body mass index [BMI] 33.0-33.9, adult; Z91.012 Allergy to eggs; Z91.011 Allergy to milk products
CPT/HCPCS: 36415; 71046-TC-FY; 80048; 80053; 82550; 82553; 83735; 83880; 84100; 84484; 85025; 85027; 87804; 93005; 93010; 93306-TC; 96372; 99283-25; G0378; J1644

== ENCOUNTER 2018-07-27 12:19 | Inpatient (IN) | payer BC, OTHER ==
--- NOTE | 2018-07-27 12:41 | PDOC ---
History of Present Illness - General Chief Complaint: Wound Stated Complaint: BILAT LEG PAIN Time Seen by Provider: 07/27/18 12:40 - History of Present Illness Initial Comments: 07/27/18 12:55 The patient is a 58 year old male with a history of CHF, HTN, Chronic Venous Stasis Ulcers who presents for evaluation of lower extremity ulcers. The patient reports that he was being evaluated by wound clinic who has been managing bilateral lower extremity venous stasis ulcers and was sent for admission due to growing MRSA from a recent wound culture 1 week ago. The patient notes that he has been suffering from ulcers for many years. He otherwise denies fevers, chills, SOB, chest pain, nausea, vomiting, abdominal pain, or changes with urination or bowel movements. Past History - Past Medical History Allergies/Adverse Reactions: Allergies Allergy/AdvReac Type Severity Reaction Status Date / Time Egg Derived Allergy Unknown Verified 07/27/18 12:21 [place] And Derivatives Allergy Verified 07/27/18 12:21 lactose AdvReac Verified 07/27/18 12:21 Home Medications: Ambulatory Orders Furosemide [Lasix] 40 mg PO DAILY 06/24/16 Allopurinol 300 mg PO DAILY 06/07/18 Folic Acid 1 mg PO DAILY 06/07/18 Multivitamin 1 tab PO DAILY 06/07/18 Oscal 250 mg+D - 1 tab PO MOWEFR 06/07/18 Aspirin [ASA -] 81 mg PO DAILY #30 tab.chew 06/23/18 Metoprolol Succinate [Toprol XL -] 25 mg PO DAILY #30 tab.sr.24h 06/23/18 Anemia: No Asthma: No Cancer: No Cardiac Disorders: No CVA: No COPD: No CHF: Yes DVT: No Dementia: No Diabetes: No GI Disorders: No Disorders: No HTN: Yes Hypercholesterolemia: No Liver Disease: No Seizures: No Thyroid Disease: No - Surgical History Abdominal Surgery: No Appendectomy: Yes Cardiac Surgery: No Cholecystectomy: No Lung Surgery: No Neurologic Surgery: No Orthopedic Surgery: No - Suicide/Smoking/Psychosocial Hx Smoking Status: No Smoking History: Never smoked Have you smoked in the past 12 months: No Number of Cigarettes Smoked Daily: 0 Hx Alcohol Use: No Drug/Substance Use Hx: No Substance Use Type: None Hx Substance Use Treatment: No Review of Systems - Review of Systems Comments:: 04/12/19 12:58 Constitutional: No fevers, chills, fatigue, malaise HEENT: No Rhinorrhea, nasal congestion, visual changes Cardiovascular: No chest pain, syncope, palpitations, lightheadedness Respiratory: No Cough, SOB, Hemoptysis, Gastrointestinal: No Abdominal pain, Nausea, Vomiting, Constipation, Diarrhea, Melena Genitourinary: No Dysuria, Frequency, Urgency, Hesitancy, Hematuria, Flank pain Musculoskeletal: No Myalgia, arthralgia Skin: Bilateral Lower extremity ulcers. No rashes, itching, bruising, pallor Neurologic: No Headache, Dizziness, Numbness, Weakness, or Tingling Psychiatric: No Hallucinations. No SI or HI *Physical Exam - Vital Signs Last Vital Signs Temp Pulse Resp BP Pulse Ox 98.6 F 64 16 124/65 100 07/27/18 12:21 07/27/18 12:21 07/27/18 12:21 07/27/18 12:21 07/27/18 12:21 - Physical Exam Comments: 07/27/18 12:58 General Appearance: Nourished. No Apparent Distress HEENT: No Pharyngeal Erythema, Tonsillar Exudate, Tonsillar Erythema Neck: No Cervical Lymphadenopathy Respiratory/Chest: Lungs Clear, Normal Breath Sounds. No Crackles, Rales, Rhonchi, Wheezing Cardiovascular: Regular Rhythm, Regular Rate. No Murmur, Gallops, Rubs Gastrointestinal/Abdominal: Normal Bowel Sounds, Soft. No Guarding, Rebound, Tenderness Musculoskeletal: No CVA Tenderness Extremity: Multiple bilateral lower extremity ulcers with purulent discharge noted on exam. No erythema or warmth noted. Normal Capillary Refill Integumentary: Normal Color, Dry, Warm Neurologic: Fully Oriented, Alert, Normal Mood/Affect, Normal Response, Heart Score/ECG Review #1 ECG reviewed & interpreted by me at: 13:36 General ECG Interpretation: Sinus Rhythm, Normal Rate, No acute ischemic changes 07/27/18 13:36 Left axis deviation Prolonged QT HR 66 QRS 104 QTc 471 ED Treatment Course - LABORATORY CBC & Chemistry Diagram: 07/27/18 13:00 07/27/18 13:00 Medical Decision Making - Medical Decision Making 07/27/18 12:59 The patient is a 58 year old male with a history of CHF, HTN, Chronic Venous Stasis Ulcers who presents for evaluation of lower extremity ulcers. Given the patient's history and physical exam, it is likely the patient's symptoms are due to a wound infection. However, we will obtain a cbc, cmp, lactate, coags, blood cultures, ekg, chest plain film to evaluate further. The patient does not demonstrate signs of systemic infection. We will treat with vanc and zosyn and continue to monitor and reassess while here in the ED. The patient had a positive wound culture growing MRSA and pseudomonas 1 week ago. He will require admission for further management. 07/27/18 15:02 CBC, cmp, lactate are unremarkable. Chest plain film is unchanged as read by our radiologist. We discussed the case with the admitting team who accepted the patient for admission. *DC/Admit/Observation/Transfer Diagnosis at time of Disposition: Venous stasis ulcers of both lower extremities - Discharge Dispostion Condition at time of disposition: Stable Decision to Admit order: Yes - Referrals Referrals: Betsy Kim [Primary Care Provider] - - Patient Instructions - Post Discharge Activity
[2018-07-27] MEDS ORDERED: VANCOMYCIN HCL 1,500 MG in DEXTROSE 5%-WATER - 500 ML IVPB ONE (12:53)
[2018-07-27] MEDS ORDERED: PIPERACILLIN/TAZOB 4.5 GM 4.5 GM in DEXTROSE 5%-WATER 100 ML IVPB ONE (12:53)
[2018-07-27] MEDS ORDERED: PIPERACILLIN/TAZOB 4.5 GM 4.5 GM/100 ML BAG IVPB ONE (13:19)
--- NOTE | 2018-07-27 13:42 | PDOC ---
Attending Attestation - HPI HPI: 07/27/18 13:58 The patient is a 58 year old male with a significant past medical history of CHF , hypertension, and chronic venous stasis ulcers who presents to the emergency department from wound care with lower extremity wounds. The patient reports that he was sent to the ED from the wound clinic secondary to worsening ulcers. It is noted that the patient was seen and had cultures of his lower extremities done 1 week ago by which he was found to be MRSA (+). The patient denies any other symptoms. He denies any fever, chills ,nausea, vomiting, diarrhea, constipation or urinary symptoms. He denies any other complaints. - Physicial Exam PE: 07/27/18 13:58 Vitals: Triage vital signs reviewed General Appearance: No acute distress, well nourished, well developed Head: Atraumatic Chest Wall: Nontender Cardiac: Regular rate and rhythm, no murmurs, no rubs, no gallops Lungs: Clear to auscultation bilateral, good air movement bilaterally Abdomen: Soft, nondistended, normal bowel sounds, nontender to palpation Extremities: (+)patient just had his lower extremities wrapped at wound care. Full range of motion to all extremities, no cyanosis, clubbing, or edema Skin: Warm and dry, no rashes or lesions, no rash, no petechiae Neuro: AOX3; Cranial Nerves 2-12 grossly intact, Strength intact to all extremities, Sensation intact to all extremities, gait normal Psych: Normal mood, normal affect - Medical Decision Making 07/27/18 13:58 The patient is a 58 year old male with a significant past medical history of CHF , hypertension, and chronic venous stasis ulcers who presents to the emergency department from wound care with lower extremity wounds. The patient will get labs drawn, EKG, chest x-ray and antibiotic medication. <Yanique Kim - Last Filed: 07/27/18 13:58> - Resident Resident Name: Mendoza John - ED Attending Attestation I have performed the following: I have examined & evaluated the patient, The case was reviewed & discussed with the resident, I agree w/resident's findings & plan, Exceptions are as noted - Medical Decision Making Patient send in by infectious disease for failure of outpatient antibiotics for bilateral lower extremity wounds Infectious disease consult thing patient treated with vancomycin and Zosyn We'll admit hospital for further management. <Scott Her - Last Filed: 07/27/18 16:03> Attestations - Attestations 07/27/18 13:58 Documentation prepared by Yanique Kim, acting as administrative medical director for Scott Her MD. <Yanique Kim - Last Filed: 07/27/18 13:58>
[2018-07-27 13:44] LABS: BASO % 1.8 % (0-2.0); EOS % 3.5 % (0-4.5); HEMATOCRIT 28.3 % (35.4-49); LYMPH % 11.8 % (8-40); MCH 27.6 pg (25.7-33.7); MCHC 31.9 g/dl (32.0-35.9); MEAN CELL VOLUME 86.7 fl (80-96); MEAN PLT VOLUME 10.1 fl (7.5-11.1); MONO % 6.9 % (3.8-10.2); PLATELET COUNT 231 K/MM3 (134-434); RBC 3.27 M/mm3 (4.00-5.60); RDW 17.7 % (11.9-15.9)
[2018-07-27 14:16] LABS: INR 1.19 (0.83-1.09); PROTHROMBIN TIME (PATIENT) 14.1 SEC (9.7-13.0)
[2018-07-27 14:17] LABS: ALBUMIN 2.6 g/dl (3.4-5.0); ALK PHOS 92 U/L (45-117); ANION GAP 5 MMOL/L (8-16); BILIRUBIN,TOTAL 0.8 mg/dL (0.2-1); BLOOD UREA NITROGEN 40 mg/dL (7-18); CALCIUM 7.5 mg/dL (8.5-10.1); CHLORIDE 112 mmol/L (98-107); CO2 25 mmol/L (21-32); CREATININE 2.1 mg/dL (0.55-1.3); GLUCOSE,RANDOM 72 mg/dL (74-106); POTASSIUM 4.9 mmol/L (3.5-5.1); SGOT/AST 15 U/L (15-37); SGPT/ALT 9 U/L (13-61); SODIUM 142 mmol/L (136-145)
[2018-07-27 14:19] LABS: ACTIVATED PTT 32.7 SECONDS (25.2-36.5)
[2018-07-27] MEDS ORDERED: CHOLECALCIFEROL PO SCH (15:45)
[2018-07-27] MEDS ORDERED: CALCIUM CARBONATE PO SCH (15:45)
--- NOTE | 2018-07-27 15:53 | CON.ID ---
Consult Consult Specialty:: infectious diseases Referred by:: Reason for Consultation:: b/l cellulitis of the legs and non healing wounds - History of Present Illness Chief Complaint: drainiage from the wounds and foul smell History of Present Illness: 58 year old male with a history of CHF, HTN, Chronic Venous Stasis Ulcers admitted because of worsening of his leg ulcer and with foul smell and profuse draiange from the ulcer patient was doing well for quite some time and again started having drainage from the wounds with foul smell wounds were worked up and found to have mrsa and pseudomonas on the wound which is resistant to all orala bx patients legs are very precarious and patient does not want to loose them . He otherwise denies fevers, chills, SOB, chest pain, nausea, vomiting, abdominal pain, or changes with urination or bowel movements. - History Source History Provided By: Patient Limitations to Obtaining History: No Limitations - Past Medical History Cardio/Vascular: Yes: CHF, HTN, Pulmonary Hypertension, Other Renal/: Yes: Renal Inusuff Musculoskeletal: Yes: Other Additional Medical History: chronic lymphedema sees Dr Eric at the wound clinic Admitted for increasing LE EDEMA - Alcohol/Substance Use Hx Alcohol Use: No History of Substance Use: reports: None - Smoking History Smoking history: Never smoked Have you smoked in the past 12 months: No Aproximately how many cigarettes per day: 0 - Social History Usual Living Arrangement: With Parent History of Recent Travel: No Home Medications - Allergies Allergies/Adverse Reactions: Allergies Allergy/AdvReac Type Severity Reaction Status Date / Time Egg Derived Allergy Unknown Verified 07/27/18 12:21 [place] And Derivatives Allergy Verified 07/27/18 12:21 lactose AdvReac Verified 07/27/18 12:21 - Home Medications Home Medications: Ambulatory Orders RX: Furosemide [Lasix] 40 mg PO DAILY 06/24/16 Allopurinol 300 mg PO DAILY 06/07/18 Folic Acid 1 mg PO DAILY 06/07/18 Multivitamin 1 tab PO DAILY 06/07/18 Oscal 250 mg+D - 1 tab PO MOWEFR 06/07/18 RX: Aspirin [ASA -] 81 mg PO DAILY #30 tab.chew 06/23/18 RX: Metoprolol Succinate [Toprol XL -] 25 mg PO DAILY #30 tab.sr.24h 06/23/18 Review of Systems - Review of Systems Constitutional: reports: No Symptoms Eyes: reports: No Symptoms HENT: reports: No Symptoms Neck: reports: No Symptoms Cardiovascular: reports: No Symptoms Respiratory: reports: Orthopnea Gastrointestinal: reports: No Symptoms Genitourinary: reports: No Symptoms Musculoskeletal: reports: Other Integumentary: reports: Erythema, Wound (on the legs foul smell) Neurological: reports: No Symptoms Endocrine: reports: No Symptoms Hematology/Lymphatic: reports: No Symptoms Psychiatric: reports: No Symptoms Physical Exam Vital Signs: Vital Signs Temperature 97.7 F 07/27/18 13:30 Pulse Rate 64 07/27/18 13:30 Respiratory Rate 16 07/27/18 13:30 Blood Pressure 122/77 07/27/18 13:30 O2 Sat by Pulse Oximetry (%) 98 07/27/18 13:30 Constitutional: Yes: Well Nourished, No Distress, Calm HENT: Yes: Atraumatic, Normocephalic Neck: Yes: Supple, Trachea Midline Cardiovascular: Yes: Regular Rate and Rhythm Respiratory: Yes: Regular, CTA Bilaterally Gastrointestinal: Yes: Normal Bowel Sounds, Soft Musculoskeletal: Yes: WNL Extremities: Yes: Erythema, Other (b/l wounds on the legs non healing) Wound/Incision: Yes: Dressing Removed, Other (b/l leg wound foul smell non healing infected) Neurological: Yes: Alert, Oriented Psychiatric: Yes: Alert, Oriented Labs: CBC, BMP 07/27/18 13:00 07/27/18 13:00 Imaging - Results Chest X-ray: Report Reviewed, Image Reviewed Assessment/Plan Assessment/Plan roble List - Problems (1) Venous stasis ulcers of both lower extremities Code(s): I83.019 - VARICOSE VEINS OF RIGHT LOWER EXTREMITY W ULCER OF UNSP SITE ; I83.029 - VARICOSE VEINS OF LEFT LOWER EXTREMITY W ULCER OF UNSP SITE (2) Renal insufficiency Code(s): N28.9 - DISORDER OF KIDNEY AND URETER, UNSPECIFIED (3) Anemia Code(s): D64.9 - ANEMIA, UNSPECIFIED (4) Congestive heart failure Code(s): I50.9 - HEART FAILURE, UNSPECIFIED (5) Idiopathic chronic venous hypertension of both lower extremities with inflammation Code(s): I87.323 - CHRONIC VENOUS HTN W INFLAMMATION OF BILATERAL LOW EXTRM (6) Lymphedema Code(s): I89.0 - LYMPHEDEMA, NOT ELSEWHERE CLASSIFIED (7) Morbid obesity Code(s): E66.01 - MORBID (SEVERE) OBESITY DUE TO EXCESS CALORIES (8) Venous insufficiency of both lower extremities Code(s): I87.2 - VENOUS INSUFFICIENCY (CHRONIC) (PERIPHERAL) (9) Venous stasis dermatitis of both lower extremities Code(s): I87.2 - VENOUS INSUFFICIENCY (CHRONIC) (PERIPHERAL) Assessment/Plan Infected LE ulcers - pseudomonas/mrsa LLE cellulitis CKD Venous insufficiency LE lymphedema CHF plan will start patient on zosyn and vanco wound care rest as per the team wound care
--- NOTE | 2018-07-27 19:41 | HP ---
Admitting History and Physical - Primary Care Physician PCP: Tremaine Borrego - Admission History of Present Illness: 58 year old male with a history of CHF, HTN, Chronic Venous Stasis Ulcers who presents for evaluation of lower extremity ulcers. The patient reports that he was being evaluated by wound clinic who has been managing bilateral lower extremity venous stasis ulcers and was sent for admission due to growing MRSA from a recent wound culture 1 week ago. The patient notes that he has been suffering from ulcers for many years. He otherwise denies fevers, chills, SOB, chest pain, nausea, vomiting, abdominal pain, or changes with urination or bowel movements. - Past Medical History Cardiovascular: Yes: CHF, HTN, Pulmonary Hypertension, Other Renal/: Yes: Renal Inusuff Musculoskeletal: Yes: Other - Smoking History Smoking history: Never smoked Have you smoked in the past 12 months: No Aproximately how many cigarettes per day: 0 - Alcohol/Substance Use Hx Alcohol Use: No History of Substance Use: reports: None - Social History History of Recent Travel: No Home Medications - Allergies Allergies/Adverse Reactions: Allergies Allergy/AdvReac Type Severity Reaction Status Date / Time Egg Derived Allergy Unknown Verified 07/27/18 12:21 [place] And Derivatives Allergy Verified 07/27/18 12:21 lactose AdvReac Verified 07/27/18 12:21 - Home Medications Home Medications: Ambulatory Orders Furosemide [Lasix] 40 mg PO DAILY 06/24/16 Allopurinol 300 mg PO DAILY 06/07/18 Folic Acid 1 mg PO DAILY 06/07/18 Multivitamin 1 tab PO DAILY 06/07/18 Oscal 250 mg+D - 1 tab PO MOWEFR 06/07/18 Aspirin [ASA -] 81 mg PO DAILY #30 tab.chew 06/23/18 Metoprolol Succinate [Toprol XL -] 25 mg PO DAILY #30 tab.sr.24h 06/23/18 Physical Examination Vital Signs: Vital Signs Temperature 98.4 F 07/27/18 17:32 Pulse Rate 64 07/27/18 17:32 Respiratory Rate 16 07/27/18 17:32 Blood Pressure 123/79 07/27/18 17:32 O2 Sat by Pulse Oximetry (%) 98 07/27/18 17:32 Constitutional: Yes: No Distress HENT: Yes: Atraumatic Neck: Yes: Supple Cardiovascular: Yes: Regular Rate and Rhythm Respiratory: Yes: CTA Bilaterally Gastrointestinal: Yes: Normal Bowel Sounds Extremities: Yes: WNL Edema: No Labs: CBC, BMP 07/27/18 13:00 07/27/18 13:00 Imaging - Results X-ray: Report Reviewed Problem List - Problems (1) Venous stasis ulcers of both lower extremities Code(s): I83.019 - VARICOSE VEINS OF RIGHT LOWER EXTREMITY W ULCER OF UNSP SITE ; I83.029 - VARICOSE VEINS OF LEFT LOWER EXTREMITY W ULCER OF UNSP SITE (2) Diastolic CHF Code(s): I50.30 - UNSPECIFIED DIASTOLIC (CONGESTIVE) HEART FAILURE (3) Venous insufficiency Code(s): I87.2 - VENOUS INSUFFICIENCY (CHRONIC) (PERIPHERAL) (4) Venous ulcer of left lower extremity without varicose veins Code(s): I87.2 - VENOUS INSUFFICIENCY (CHRONIC) (PERIPHERAL); L97.929 - NON-PRS CHRONIC ULC UNSP PRT OF L LOW LEG W UNSP SEVERITY (5) Venous ulcer of right leg Assessment/Plan: on iv abx woundon iv abx elevate legs Code(s): I83.019 - VARICOSE VEINS OF RIGHT LOWER EXTREMITY W ULCER OF UNSP SITE ; L97.919 - NON-PRS CHRONIC ULC UNSP PRT OF R LOW LEG W UNSP SEVERITY Assessment/Plan Laboratory Results - last 24 hr 07/27/18 07/27/18 07/27/18 13:00 13:00 13:00 WBC 6.0 RBC 3.27 L Hgb 9.0 L Hct 28.3 L MCV 86.7 MCH 27.6 MCHC 31.9 L RDW 17.7 H Plt Count 231 D MPV 10.1 Absolute Neuts (auto) 4.5 Neutrophils % 76.0 D Lymphocytes % 11.8 D Monocytes % 6.9 Eosinophils % 3.5 Basophils % 1.8 D Nucleated RBC % 0 PT with INR INR PTT (Actin FS) Sodium 142 Potassium 4.9 Chloride 112 H Carbon Dioxide 25 Anion Gap 5 L BUN 40 H Creatinine 2.1 H Creat Clearance w eGFR 32.38 Random Glucose 72 L Lactic Acid 0.9 Calcium 7.5 L Total Bilirubin 0.8 AST 15 ALT 9 L Alkaline Phosphatase 92 Troponin I Total Protein 8.0 Albumin 2.6 L 04/12/19 04/12/19 13:28 13:28 WBC RBC Hgb Hct MCV MCH MCHC RDW Plt Count MPV Absolute Neuts (auto) Neutrophils % Lymphocytes % Monocytes % Eosinophils % Basophils % Nucleated RBC % PT with INR 14.10 H INR 1.19 H PTT (Actin FS) 32.7 Sodium Potassium Chloride Carbon Dioxide Anion Gap BUN Creatinine Creat Clearance w eGFR Random Glucose Lactic Acid Calcium Total Bilirubin AST ALT Alkaline Phosphatase Troponin I 0.06 H Total Protein Albumin Active Medications Generic Name Dose Route Start Last Admin Trade Name Freq PRN Reason Stop Dose Admin Aspirin 81 mg 07/28/18 10:00 Asa - PO DAILY [facility] Calcium/Vitamin D 1 tab 07/30/18 10:00 Oscal 250 Mg+D - PO MoWeFr@1000 [facility] Furosemide 40 mg 07/28/18 10:00 Lasix - PO DAILY [facility] Heparin Sodium (Porcine) 5,000 unit 07/27/18 22:00 Heparin - SQ TID [facility] Metoprolol Succinate 25 mg 07/28/18 10:00 Toprol Xl - PO DAILY [facility] Multivitamins/Minerals/Vitamin C 1 tab 07/28/18 10:00 Tab-A-Vit - PO DAILY [facility]
[2018-07-27] MEDS ORDERED: HEPARIN NA (PORCINE) 5,000 UNITS/ML 1ML VIAL ONE (22:45)
[2018-07-27] MEDS: HEPARIN NA (PORCINE) 5,000 UNITS/ML 1ML VIAL SQ SCH ×2 (23:00)
[2018-07-28] MEDS: HEPARIN NA (PORCINE) 5,000 UNITS/ML 1ML VIAL SQ SCH ×4 (06:17→21:26)
[2018-07-28 07:34] LABS: EOS % 5.2 % (0-4.5); HEMATOCRIT 27.4 % (35.4-49); HEMOGLOBIN 8.7 GM/dL (11.7-16.9); LYMPH % 10.4 % (8-40); MCH 27.3 pg (25.7-33.7); MCHC 31.7 g/dl (32.0-35.9); MEAN PLT VOLUME 9.7 fl (7.5-11.1); MONO % 7.3 % (3.8-10.2); NEUT % 76.1 % (42.8-82.8); PLATELET COUNT 229 K/MM3 (134-434); RBC 3.19 M/mm3 (4.00-5.60); RDW 17.9 % (11.9-15.9); WHITE BLOOD COUNT 6.3 K/mm3 (4.0-10.0)
[2018-07-28 08:13] LABS: ALBUMIN 2.5 g/dl (3.4-5.0); ALK PHOS 90 U/L (45-117); ANION GAP 5 MMOL/L (8-16); BILIRUBIN,TOTAL 0.7 mg/dL (0.2-1); BLOOD UREA NITROGEN 36 mg/dL (7-18); CALCIUM 7.7 mg/dL (8.5-10.1); CHLORIDE 114 mmol/L (98-107); CO2 24 mmol/L (21-32); CREATININE 1.9 mg/dL (0.55-1.3); GLUCOSE,RANDOM 78 mg/dL (74-106); SGOT/AST 14 U/L (15-37); SGPT/ALT 7 U/L (13-61); SODIUM 143 mmol/L (136-145); TOT PROT 7.6 g/dl (6.4-8.2)
[2018-07-28] MEDS: ASPIRIN 81 MG CHEWABLE TABLETS PO SCH (10:00)
[2018-07-28] MEDS: FUROSEMIDE 40 MG TABLET (FP) PO SCH (10:00)
[2018-07-28] MEDS: metoPROLOL SUCCINATE 25 MG TAB.SR.24H (FP) PO SCH (10:00)
[2018-07-28] MEDS: MULTIVITAMINS (DAILY MVI) TABLET (FP) PO SCH (10:00)
[2018-07-28] MEDS ORDERED: PATIENT'S OWN MEDICATION (NON-FORMULARY) (Multivitamin 1 TAB) PO SCH (10:00)
[2018-07-28] MEDS ORDERED: PIPERACILLIN/TAZOBACTAM 3.375 GM VIAL IVPB ONE ×2 (16:48→23:28)
[2018-07-28] MEDS ORDERED: DEXTROSE 5%-WATER - 50 ML IVPB ONE ×2 (16:49→23:28)
[2018-07-28] MEDS: PIPERACILLIN/TAZOB 3.375 GM 3.375 GM in DEXTROSE 5%-WATER - 50 ML IVPB SCH (16:56)
[2018-07-28] MEDS: VANCOMYCIN 1 GM PREMIX - 1 GM/200 ML BAG IVPB SCH (16:57)
--- NOTE | 2018-07-28 18:43 | PN ---
Physical Exam: SUBJECTIVE: Patient seen and examined OBJECTIVE: Vital Signs Period Temp Pulse Resp BP Sys/Mcfarland Pulse Ox Last 24 Hr 97.7 F-98.3 F 68-80 18-21 125-137/63-82 94-95 in no distress MMM CVS:S1S2 CTAB Abd:BS+ NT/nd morbidly obese ELX edema B/L, Chronic CARLOS edema and chronic Carlos lesions Laboratory Results - last 24 hr 07/28/18 07/28/18 07/28/18 06:30 06:30 06:30 WBC 6.3 RBC 3.19 L Hgb 8.7 L Hct 27.4 L MCV 86.0 MCH 27.3 MCHC 31.7 L RDW 17.9 H Plt Count 229 MPV 9.7 Absolute Neuts (auto) 4.8 Neutrophils % 76.1 Lymphocytes % 10.4 Monocytes % 7.3 Eosinophils % 5.2 H Basophils % 1.0 Nucleated RBC % 0 Sodium 143 Potassium 5.0 Chloride 114 H Carbon Dioxide 24 Anion Gap 5 L BUN 36 H Creatinine 1.9 H Creat Clearance w eGFR 36.34 Random Glucose 78 Calcium 7.7 L Total Bilirubin 0.7 AST 14 L ALT 7 L Alkaline Phosphatase 90 Total Protein 7.6 Albumin 2.5 L Random Vancomycin 12.2 L Active Medications Generic Name Dose Route Start Last Admin Trade Name Sonuq PRN Reason Stop Dose Admin Aspirin 81 mg 07/28/18 10:00 07/28/18 10:00 Asa - PO 81 mg DAILY MICHELLE Administration Calcium/Vitamin D 1 tab 07/30/18 10:00 Oscal 250 Mg+D - PO MoWeFr@1000 MICHELLE Furosemide 40 mg 07/28/18 10:00 07/28/18 10:00 Lasix - PO 40 mg DAILY MICHELLE Administration Heparin Sodium (Porcine) 5,000 unit 07/27/18 22:00 07/28/18 14:48 Heparin - SQ 5,000 unit TID MICHELLE Administration Heparin Sodium (Porcine) 5,000 unit 07/27/18 22:00 07/28/18 10:00 Heparin - SQ 5,000 unit BID MICHELLE Administration Piperacillin Sod/Tazobactam 50 mls @ 100 mls/hr 07/28/18 17:01 07/28/18 16:56 Sod 3.375 gm/ Dextrose IVPB 100 mls/hr Q8H-IV MICHELLE Administration Protocol Vancomycin HCl 1 gm in 200 mls @ 133.333 mls/hr 07/28/18 17:00 07/28/18 16:57 Vancomycin 1 Gm Premix - IVPB 133.333 mls/hr DAILY@1700 MICHELLE Administration Protocol Metoprolol Succinate 25 mg 07/28/18 10:00 07/28/18 10:00 Toprol Xl - PO 25 mg DAILY MICHELLE Administration Multivitamins/Minerals/Vitamin C 1 tab 07/28/18 10:00 07/28/18 10:00 Tab-A-Vit - PO 1 tab DAILY MICHELLE Administration ASSESSMENT/PLAN: 58 Y/O M W CHF, HTN, Chronic Venous Stasis Ulcers since he was a young man, who presents for evaluation of lower extremity ulcers( chronic for years, has VNS at home). The patient reports that he was being evaluated by wound clinic who has been managing bilateral lower extremity venous stasis ulcers and was sent for admission due to growing MRSA, chronic CARLOS edema and ulcers due to venous insufficiency: on IV antibiotics, will need F/u with wound care, ( has VNS at home), will need F/u iwht vascular as O/P, VAN level tomorrow. HFpEF: no sign of volume overload at this time will C/W home medication HTN, morbid obesty: on ASA, unclear why not on statin, will start statins on DC. Dispo: Will DC the patient after final ID plan for antibiotics and duration. FC DVT ppx: HEPARIN Visit type - Emergency Visit Emergency Visit: Yes ED Registration Date: 07/27/18 Care time: The patient presented to the Emergency Department on the above date and was hospitalized for further evaluation of their emergent condition. - New Patient This patient is new to me today: Yes Date on this admission: 07/28/18 - Critical Care Critical Care patient: No - Discharge Referral Referred to [facility] Med P.C.: No
--- NOTE | 2018-07-28 19:10 | PN ---
Progress Note, Physician History of Present Illness: Pt seen and examined. Has no specific complaints. LE wounds draining. Pt afebrile. Lab results noted. - Current Medication List Current Medications: Active Medications Aspirin (Asa -) 81 mg PO DAILY [facility] Last Admin: 07/28/18 10:00 Dose: 81 mg Calcium/Vitamin D (Oscal 250 Mg+D -) 1 tab PO MoWeFr@1000 MICHELLE Furosemide (Lasix -) 40 mg PO DAILY [facility] Last Admin: 07/28/18 10:00 Dose: 40 mg Heparin Sodium (Porcine) (Heparin -) 5,000 unit SQ TID MICHELLE Last Admin: 07/28/18 14:48 Dose: 5,000 unit Heparin Sodium (Porcine) (Heparin -) 5,000 unit SQ BID [facility] Last Admin: 07/28/18 10:00 Dose: 5,000 unit Piperacillin Sod/Tazobactam (Sod 3.375 gm/ Dextrose) 50 mls @ 100 mls/hr IVPB Q8H-IV MICHELLE; Protocol Last Admin: 07/28/18 16:56 Dose: 100 mls/hr Vancomycin HCl (Vancomycin 1 Gm Premix -) 1 gm in 200 mls @ 133.333 mls/hr IVPB DAILY@1700 MICHELLE; Protocol Last Admin: 07/28/18 16:57 Dose: 133.333 mls/hr Metoprolol Succinate (Toprol Xl -) 25 mg PO DAILY [facility] Last Admin: 07/28/18 10:00 Dose: 25 mg Multivitamins/Minerals/Vitamin C (Tab-A-Vit -) 1 tab PO DAILY [facility] Last Admin: 07/28/18 10:00 Dose: 1 tab - Objective Vital Signs: Vital Signs Temperature 97.7 F 07/28/18 14:08 Pulse Rate 80 07/28/18 14:08 Respiratory Rate 18 07/28/18 14:08 Blood Pressure 137/63 07/28/18 14:08 O2 Sat by Pulse Oximetry (%) 94 L 07/28/18 11:40 Constitutional: Yes: No Distress, Calm Cardiovascular: Yes: Regular Rate and Rhythm Respiratory: Yes: Regular Gastrointestinal: Yes: Normal Bowel Sounds, Soft Wound/Incision: Yes: Other (LLE warmth. lateral leg large ulcer with semipurulent drainage b/l LE ulcers Lymphedema) Neurological: Yes: Alert, Oriented Labs: CBC, BMP 07/28/18 06:30 07/28/18 06:30 INR, PTT INR 1.19 (0.83-1.09) H 07/27/18 13:28 Microbiology 07/27/18 13:28 Blood - Peripheral Venous Blood Culture - Preliminary NO GROWTH OBTAINED AFTER 24 HOURS, INCUBATION TO CONTINUE FOR 4 DAYS. 07/27/18 13:28 Blood - Peripheral Venous Blood Culture - Preliminary NO GROWTH OBTAINED AFTER 24 HOURS, INCUBATION TO CONTINUE FOR 4 DAYS. - ....Imaging Chest X-ray: Report Reviewed Problem List - Problems (1) Venous stasis ulcers of both lower extremities Code(s): I83.019 - VARICOSE VEINS OF RIGHT LOWER EXTREMITY W ULCER OF UNSP SITE ; I83.029 - VARICOSE VEINS OF LEFT LOWER EXTREMITY W ULCER OF UNSP SITE (2) Renal insufficiency Code(s): N28.9 - DISORDER OF KIDNEY AND URETER, UNSPECIFIED (3) Anemia Code(s): D64.9 - ANEMIA, UNSPECIFIED (4) Congestive heart failure Code(s): I50.9 - HEART FAILURE, UNSPECIFIED (5) Idiopathic chronic venous hypertension of both lower extremities with inflammation Code(s): I87.323 - CHRONIC VENOUS HTN W INFLAMMATION OF BILATERAL LOW EXTRM (6) Lymphedema Code(s): I89.0 - LYMPHEDEMA, NOT ELSEWHERE CLASSIFIED (7) Morbid obesity Code(s): E66.01 - MORBID (SEVERE) OBESITY DUE TO EXCESS CALORIES (8) Venous insufficiency of both lower extremities Code(s): I87.2 - VENOUS INSUFFICIENCY (CHRONIC) (PERIPHERAL) (9) Venous stasis dermatitis of both lower extremities Code(s): I87.2 - VENOUS INSUFFICIENCY (CHRONIC) (PERIPHERAL) (10) Cellulitis and abscess of leg Code(s): L02.419 - CUTANEOUS ABSCESS OF LIMB, UNSPECIFIED; L03.119 - CELLULITIS OF UNSPECIFIED PART OF LIMB Assessment/Plan Infected LE ulcers LLE cellulitis CKD Venous insufficiency LE lymphedema CHF -- wound cultures from 07/20/18 reviewed: multiple organisms including pseudomonas /mrsa isolated -- continue Zosyn/VAncomycin -- monitor renal function closely, vancomycin trough prior to 4th dose -- continue wound care
--- NOTE | 2018-07-28 19:55 | PN ---
Progress Note, Physician History of Present Illness: stable - Current Medication List Current Medications: Active Medications Aspirin (Asa -) 81 mg PO DAILY [facility] Last Admin: 07/28/18 10:00 Dose: 81 mg Calcium/Vitamin D (Oscal 250 Mg+D -) 1 tab PO MoWeFr@1000 MICHELLE Furosemide (Lasix -) 40 mg PO DAILY [facility] Last Admin: 07/28/18 10:00 Dose: 40 mg Heparin Sodium (Porcine) (Heparin -) 5,000 unit SQ BID [facility] Last Admin: 07/28/18 10:00 Dose: 5,000 unit Piperacillin Sod/Tazobactam (Sod 3.375 gm/ Dextrose) 50 mls @ 100 mls/hr IVPB Q8H-IV MICHELLE; Protocol Last Admin: 07/28/18 16:56 Dose: 100 mls/hr Vancomycin HCl (Vancomycin 1 Gm Premix -) 1 gm in 200 mls @ 133.333 mls/hr IVPB DAILY@1700 MICHELLE; Protocol Last Admin: 07/28/18 16:57 Dose: 133.333 mls/hr Metoprolol Succinate (Toprol Xl -) 25 mg PO DAILY [facility] Last Admin: 07/28/18 10:00 Dose: 25 mg Multivitamins/Minerals/Vitamin C (Tab-A-Vit -) 1 tab PO DAILY [facility] Last Admin: 07/28/18 10:00 Dose: 1 tab - Objective Vital Signs: Vital Signs Temperature 97.7 F 07/28/18 14:08 Pulse Rate 80 07/28/18 14:08 Respiratory Rate 18 07/28/18 14:08 Blood Pressure 137/63 07/28/18 14:08 O2 Sat by Pulse Oximetry (%) 94 L 07/28/18 11:40 Constitutional: Yes: No Distress HENT: Yes: Atraumatic Neck: Yes: Supple Cardiovascular: Yes: Regular Rate and Rhythm Respiratory: Yes: CTA Bilaterally Gastrointestinal: Yes: Normal Bowel Sounds Extremities: Yes: WNL, Other (b/l porfirio cellulitis) Neurological: Yes: Alert, Oriented Labs: CBC, BMP 07/28/18 06:30 07/28/18 06:30 INR, PTT INR 1.19 (0.83-1.09) H 07/27/18 13:28 Problem List - Problems (1) Venous stasis ulcers of both lower extremities Code(s): I83.019 - VARICOSE VEINS OF RIGHT LOWER EXTREMITY W ULCER OF UNSP SITE ; I83.029 - VARICOSE VEINS OF LEFT LOWER EXTREMITY W ULCER OF UNSP SITE (2) Diastolic CHF Code(s): I50.30 - UNSPECIFIED DIASTOLIC (CONGESTIVE) HEART FAILURE (3) Venous insufficiency Code(s): I87.2 - VENOUS INSUFFICIENCY (CHRONIC) (PERIPHERAL) (4) Venous ulcer of right leg Assessment/Plan: on iv abx woundon iv abx elevate legs Code(s): I83.019 - VARICOSE VEINS OF RIGHT LOWER EXTREMITY W ULCER OF UNSP SITE ; L97.919 - NON-PRS CHRONIC ULC UNSP PRT OF R LOW LEG W UNSP SEVERITY (5) Venous ulcer of left lower extremity without varicose veins Code(s): I87.2 - VENOUS INSUFFICIENCY (CHRONIC) (PERIPHERAL); L97.929 - NON-PRS CHRONIC ULC UNSP PRT OF L LOW LEG W UNSP SEVERITY
[2018-07-29] MEDS: PIPERACILLIN/TAZOB 3.375 GM 3.375 GM in DEXTROSE 5%-WATER - 50 ML IVPB SCH ×3 (01:31→17:23)
[2018-07-29 08:30] LABS: EOS % 5.7 % (0-4.5); HEMATOCRIT 29.3 % (35.4-49); HEMOGLOBIN 9.3 GM/dL (11.7-16.9); LYMPH % 14.6 % (8-40); MCH 27.3 pg (25.7-33.7); MCHC 31.6 g/dl (32.0-35.9); MEAN CELL VOLUME 86.4 fl (80-96); MEAN PLT VOLUME 9.8 fl (7.5-11.1); MONO % 8.4 % (3.8-10.2); NEUT % 70.3 % (42.8-82.8); PLATELET COUNT 260 K/MM3 (134-434); RBC 3.39 M/mm3 (4.00-5.60); RDW 17.9 % (11.9-15.9); WHITE BLOOD COUNT 7.3 K/mm3 (4.0-10.0)
[2018-07-29 08:43] LABS: ANION GAP 6 MMOL/L (8-16); BLOOD UREA NITROGEN 35 mg/dL (7-18); CALCIUM 8.2 mg/dL (8.5-10.1); CHLORIDE 111 mmol/L (98-107); CO2 24 mmol/L (21-32); CREATININE 2.1 mg/dL (0.55-1.3); GLUCOSE,RANDOM 89 mg/dL (74-106); POTASSIUM 4.7 mmol/L (3.5-5.1); SODIUM 141 mmol/L (136-145)
[2018-07-29] MEDS ORDERED: PIPERACILLIN/TAZOBACTAM 3.375 GM VIAL IVPB ONE ×3 (11:06→23:39)
[2018-07-29] MEDS ORDERED: DEXTROSE 5%-WATER - 50 ML IVPB ONE ×3 (11:06→23:39)
[2018-07-29] MEDS: ASPIRIN 81 MG CHEWABLE TABLETS PO SCH (11:10)
[2018-07-29] MEDS: metoPROLOL SUCCINATE 25 MG TAB.SR.24H (FP) PO SCH (11:10)
[2018-07-29] MEDS: FUROSEMIDE 40 MG TABLET (FP) PO SCH (11:10)
[2018-07-29] MEDS: MULTIVITAMINS (DAILY MVI) TABLET (FP) PO SCH (11:11)
[2018-07-29] MEDS: HEPARIN NA (PORCINE) 5,000 UNITS/ML 1ML VIAL SQ SCH ×2 (11:11→21:52)
--- NOTE | 2018-07-29 12:10 | PN ---
Physical Exam: SUBJECTIVE: Patient seen and examined, He is in no distress at this time. no overnight events OBJECTIVE: Vital Signs Period Temp Pulse Resp BP Sys/Mcfarland Pulse Ox Last 24 Hr 97.7 F-98.4 F 75-80 18-18 130-137/60-75 Laboratory Results - last 24 hr 07/29/18 07/29/18 07:00 07:00 WBC 7.3 RBC 3.39 L Hgb 9.3 L Hct 29.3 L MCV 86.4 MCH 27.3 MCHC 31.6 L RDW 17.9 H Plt Count 260 MPV 9.8 Absolute Neuts (auto) 5.1 Neutrophils % 70.3 Lymphocytes % 14.6 D Monocytes % 8.4 Eosinophils % 5.7 H Basophils % 1.0 Nucleated RBC % 0 Sodium 141 Potassium 4.7 Chloride 111 H Carbon Dioxide 24 Anion Gap 6 L BUN 35 H Creatinine 2.1 H Creat Clearance w eGFR 32.38 Random Glucose 89 Calcium 8.2 L Active Medications Generic Name Dose Route Start Last Admin Trade Name Sonuq PRN Reason Stop Dose Admin Aspirin 81 mg 07/28/18 10:00 07/29/18 11:10 Asa - PO 81 mg DAILY MICHELLE Administration Calcium/Vitamin D 1 tab 07/30/18 10:00 Oscal 250 Mg+D - PO MoWeFr@1000 MICHELLE Furosemide 40 mg 07/28/18 10:00 07/29/18 11:10 Lasix - PO 40 mg DAILY MICHELLE Administration Heparin Sodium (Porcine) 5,000 unit 07/27/18 22:00 07/29/18 11:11 Heparin - SQ 5,000 unit BID MICHELLE Administration Piperacillin Sod/Tazobactam 50 mls @ 100 mls/hr 07/28/18 17:01 07/29/18 11:10 Sod 3.375 gm/ Dextrose IVPB 100 mls/hr Q8H-IV MICHELLE Administration Protocol Vancomycin HCl 1 gm in 200 mls @ 133.333 mls/hr 07/28/18 17:00 07/28/18 16:57 Vancomycin 1 Gm Premix - IVPB 133.333 mls/hr DAILY@1700 MICHELLE Administration Protocol Metoprolol Succinate 25 mg 07/28/18 10:00 07/29/18 11:10 Toprol Xl - PO 25 mg DAILY MICHELLE Administration Multivitamins/Minerals/Vitamin C 1 tab 07/28/18 10:00 07/29/18 11:11 Tab-A-Vit - PO 1 tab DAILY MICHELLE Administration ASSESSMENT/PLAN: 58 Y/O M W CHF, HTN, Chronic Venous Stasis Ulcers since he was a young man, who presents for evaluation of lower extremity ulcers( chronic for years, has VNS at home). The patient reports that he was being evaluated by wound clinic who has been managing bilateral lower extremity venous stasis ulcers and was sent for admission due to growing MRSA, chronic CARLOS edema, lymphedema and ulcers due to venous insufficiency: on IV antibiotics, will need F/u with wound care, ( has VNS at home), will need F/u with vascular as O/P, VAN level tomorrow.was evlauated by ID and their recs appreciated, pending the plan for duration of antibiotics. HFpEF: no sign of volume overload at this time will C/W home medication HTN, morbid obesity: on ASA, unclear why not on statin, will start statins on DC. Dispo: Will DC the patient after final ID plan for antibiotics and duration. FC DVT ppx: HEPARIN Visit type - Emergency Visit Emergency Visit: Yes ED Registration Date: 07/27/18 Care time: The patient presented to the Emergency Department on the above date and was hospitalized for further evaluation of their emergent condition. - New Patient This patient is new to me today: No - Critical Care Critical Care patient: No - Discharge Referral Referred to [facility] Med P.C.: No
[2018-07-29] MEDS ORDERED: PT OWN MED DRAWER 7, Y5N ONE (16:35)
--- NOTE | 2018-07-29 17:19 | PN ---
Progress Note, Physician History of Present Illness: stable - Current Medication List Current Medications: Active Medications Aspirin (Asa -) 81 mg PO DAILY [facility] Last Admin: 07/29/18 11:10 Dose: 81 mg Calcium/Vitamin D (Oscal 250 Mg+D -) 1 tab PO MoWeFr@1000 MICHELLE Furosemide (Lasix -) 40 mg PO DAILY [facility] Last Admin: 07/29/18 11:10 Dose: 40 mg Heparin Sodium (Porcine) (Heparin -) 5,000 unit SQ BID [facility] Last Admin: 07/29/18 11:11 Dose: 5,000 unit Piperacillin Sod/Tazobactam (Sod 3.375 gm/ Dextrose) 50 mls @ 100 mls/hr IVPB Q8H-IV MICHELLE; Protocol Last Admin: 07/29/18 11:10 Dose: 100 mls/hr Vancomycin HCl (Vancomycin 1 Gm Premix -) 1 gm in 200 mls @ 133.333 mls/hr IVPB DAILY@1700 MICHELLE; Protocol Last Admin: 07/28/18 16:57 Dose: 133.333 mls/hr Metoprolol Succinate (Toprol Xl -) 25 mg PO DAILY [facility] Last Admin: 07/29/18 11:10 Dose: 25 mg Multivitamins/Minerals/Vitamin C (Tab-A-Vit -) 1 tab PO DAILY [facility] Last Admin: 07/29/18 11:11 Dose: 1 tab Nystatin (Mycostatin Cream -) 1 applic TP BID [facility] - Objective Vital Signs: Vital Signs Temperature 98.1 F 07/29/18 15:22 Pulse Rate 74 07/29/18 15:22 Respiratory Rate 18 07/29/18 15:22 Blood Pressure 117/70 07/29/18 10:00 O2 Sat by Pulse Oximetry (%) 98 07/29/18 09:00 Constitutional: Yes: No Distress HENT: Yes: Atraumatic Neck: Yes: Supple Cardiovascular: Yes: Regular Rate and Rhythm Respiratory: Yes: CTA Bilaterally Gastrointestinal: Yes: Normal Bowel Sounds Extremities: Yes: WNL Edema: No Peripheral Pulses WNL: Yes Neurological: Yes: Alert, Oriented Labs: CBC, BMP 07/29/18 07:00 07/29/18 07:00 INR, PTT INR 1.19 (0.83-1.09) H 07/27/18 13:28 Problem List - Problems (1) Venous stasis ulcers of both lower extremities Code(s): I83.019 - VARICOSE VEINS OF RIGHT LOWER EXTREMITY W ULCER OF UNSP SITE ; I83.029 - VARICOSE VEINS OF LEFT LOWER EXTREMITY W ULCER OF UNSP SITE (2) Diastolic CHF Code(s): I50.30 - UNSPECIFIED DIASTOLIC (CONGESTIVE) HEART FAILURE (3) Venous insufficiency Code(s): I87.2 - VENOUS INSUFFICIENCY (CHRONIC) (PERIPHERAL) (4) Venous ulcer of left lower extremity without varicose veins Code(s): I87.2 - VENOUS INSUFFICIENCY (CHRONIC) (PERIPHERAL); L97.929 - NON-PRS CHRONIC ULC UNSP PRT OF L LOW LEG W UNSP SEVERITY (5) Venous ulcer of right leg Assessment/Plan: on iv abx woundon iv abx elevate legs Code(s): I83.019 - VARICOSE VEINS OF RIGHT LOWER EXTREMITY W ULCER OF UNSP SITE ; L97.919 - NON-PRS CHRONIC ULC UNSP PRT OF R LOW LEG W UNSP SEVERITY
--- NOTE | 2018-07-29 17:45 | PN ---
Progress Note, Physician History of Present Illness: Pt states he feels well. Has no specific new complaints. Remains afebrile. - Current Medication List Current Medications: Active Medications Aspirin (Asa -) 81 mg PO DAILY [facility] Last Admin: 07/29/18 11:10 Dose: 81 mg Calcium/Vitamin D (Oscal 250 Mg+D -) 1 tab PO MoWeFr@1000 MICHELLE Furosemide (Lasix -) 40 mg PO DAILY [facility] Last Admin: 07/29/18 11:10 Dose: 40 mg Heparin Sodium (Porcine) (Heparin -) 5,000 unit SQ BID [facility] Last Admin: 07/29/18 11:11 Dose: 5,000 unit Piperacillin Sod/Tazobactam (Sod 3.375 gm/ Dextrose) 50 mls @ 100 mls/hr IVPB Q8H-IV [facility]; Protocol Last Admin: 07/29/18 17:23 Dose: 100 mls/hr Vancomycin HCl (Vancomycin 1 Gm Premix -) 1 gm in 200 mls @ 133.333 mls/hr IVPB DAILY@1700 MICHELLE; Protocol Last Admin: 07/28/18 16:57 Dose: 133.333 mls/hr Metoprolol Succinate (Toprol Xl -) 25 mg PO DAILY [facility] Last Admin: 07/29/18 11:10 Dose: 25 mg Multivitamins/Minerals/Vitamin C (Tab-A-Vit -) 1 tab PO DAILY [facility] Last Admin: 07/29/18 11:11 Dose: 1 tab Nystatin (Mycostatin Cream -) 1 applic TP BID [facility] - Objective Vital Signs: Vital Signs Temperature 98.1 F 07/29/18 15:22 Pulse Rate 74 07/29/18 15:22 Respiratory Rate 18 07/29/18 15:22 Blood Pressure 117/70 07/29/18 10:00 O2 Sat by Pulse Oximetry (%) 98 07/29/18 09:00 Constitutional: Yes: No Distress, Calm Cardiovascular: Yes: Regular Rate and Rhythm Respiratory: Yes: Regular Gastrointestinal: Yes: Normal Bowel Sounds, Soft, Abdomen, Obese Wound/Incision: Yes: Other (b/l LE dressing intact) Neurological: Yes: Alert Labs: CBC, BMP 07/29/18 07:00 07/29/18 07:00 INR, PTT INR 1.19 (0.83-1.09) H 07/27/18 13:28 Problem List - Problems (1) Venous stasis ulcers of both lower extremities Code(s): I83.019 - VARICOSE VEINS OF RIGHT LOWER EXTREMITY W ULCER OF UNSP SITE ; I83.029 - VARICOSE VEINS OF LEFT LOWER EXTREMITY W ULCER OF UNSP SITE (2) Renal insufficiency Code(s): N28.9 - DISORDER OF KIDNEY AND URETER, UNSPECIFIED (3) Anemia Code(s): D64.9 - ANEMIA, UNSPECIFIED (4) Congestive heart failure Code(s): I50.9 - HEART FAILURE, UNSPECIFIED (5) Idiopathic chronic venous hypertension of both lower extremities with inflammation Code(s): I87.323 - CHRONIC VENOUS HTN W INFLAMMATION OF BILATERAL LOW EXTRM (6) Lymphedema Code(s): I89.0 - LYMPHEDEMA, NOT ELSEWHERE CLASSIFIED (7) Morbid obesity Code(s): E66.01 - MORBID (SEVERE) OBESITY DUE TO EXCESS CALORIES (8) Venous insufficiency of both lower extremities Code(s): I87.2 - VENOUS INSUFFICIENCY (CHRONIC) (PERIPHERAL) (9) Venous stasis dermatitis of both lower extremities Code(s): I87.2 - VENOUS INSUFFICIENCY (CHRONIC) (PERIPHERAL) Assessment/Plan Infected LE ulcers - pseudomonas/mrsa LLE cellulitis CKD Venous insufficiency LE lymphedema CHF Groin rash -- continue Zosyn/Vancomycin, Vancomycin trough ordered for tomorrow -- nystatin cream ordered -- monitor renal function closely -- continue wound care
[2018-07-29] MEDS: VANCOMYCIN 1 GM PREMIX - 1 GM/200 ML BAG IVPB SCH (18:39)
[2018-07-29] MEDS: NYSTATIN 100,000 UNIT/GM TOPICAL CREAM 15 GM TUBE TP SCH (21:53)
[2018-07-30] MEDS: PIPERACILLIN/TAZOB 3.375 GM 3.375 GM in DEXTROSE 5%-WATER - 50 ML IVPB SCH ×3 (01:50→17:03)
[2018-07-30] MEDS ORDERED: DEXTROSE 5%-WATER - 50 ML IVPB ONE ×2 (09:19→16:49)
[2018-07-30] MEDS ORDERED: PIPERACILLIN/TAZOBACTAM 3.375 GM VIAL IVPB ONE ×2 (09:19→16:49)
[2018-07-30] MEDS: ASPIRIN 81 MG CHEWABLE TABLETS PO SCH (09:25)
[2018-07-30] MEDS: HEPARIN NA (PORCINE) 5,000 UNITS/ML 1ML VIAL SQ SCH ×2 (09:25→21:47)
[2018-07-30] MEDS: metoPROLOL SUCCINATE 25 MG TAB.SR.24H (FP) PO SCH (09:25)
[2018-07-30] MEDS: FUROSEMIDE 40 MG TABLET (FP) PO SCH (09:25)
[2018-07-30] MEDS: MULTIVITAMINS (DAILY MVI) TABLET (FP) PO SCH (09:25)
[2018-07-30] MEDS: CALCIUM 250MG/VIT-D 125 UNITS 1 COMBO TABLET PO SCH (09:25)
[2018-07-30] MEDS: NYSTATIN 100,000 UNIT/GM TOPICAL CREAM 15 GM TUBE TP SCH ×2 (09:26→21:47)
--- NOTE | 2018-07-30 10:38 | EKG ---
Test Reason : Blood Pressure : / mmHG Vent. Rate : 066 BPM Atrial Rate : 066 BPM P-R Int : 202 ms QRS Dur : 104 ms QT Int : 450 ms P-R-T Axes : 086 -37 078 degrees QTc Int : 471 ms NORMAL SINUS RHYTHM LEFT AXIS DEVIATION NONSPECIFIC T WAVE ABNORMALITY PROLONGED QT ABNORMAL ECG WHEN COMPARED WITH ECG OF 22-JUN-2018 10:38, PREMATURE ATRIAL COMPLEXES ARE NO LONGER PRESENT Confirmed by STEVE MURPHY, BALDEMAR ([id number]) on 07/30/2018 10:38:24 AM Referred By: Confirmed By:BALDEMAR WILSON MD
--- NOTE | 2018-07-30 10:38 | PN ---
Progress Note, Physician History of Present Illness: patient doing well no complaints dressing in place - Current Medication List Current Medications: Active Medications Aspirin (Asa -) 81 mg PO DAILY [facility] Last Admin: 07/30/18 09:25 Dose: 81 mg Calcium/Vitamin D (Oscal 250 Mg+D -) 1 tab PO MoWeFr@1000 [facility] Last Admin: 07/30/18 09:25 Dose: 1 tab Furosemide (Lasix -) 40 mg PO DAILY [facility] Last Admin: 07/30/18 09:25 Dose: 40 mg Heparin Sodium (Porcine) (Heparin -) 5,000 unit SQ BID [facility] Last Admin: 07/30/18 09:25 Dose: 5,000 unit Piperacillin Sod/Tazobactam (Sod 3.375 gm/ Dextrose) 50 mls @ 100 mls/hr IVPB Q8H-IV [facility]; Protocol Last Admin: 07/30/18 09:26 Dose: 100 mls/hr Vancomycin HCl (Vancomycin 1 Gm Premix -) 1 gm in 200 mls @ 133.333 mls/hr IVPB DAILY@1700 [facility]; Protocol Last Admin: 07/29/18 18:39 Dose: 133.333 mls/hr Metoprolol Succinate (Toprol Xl -) 25 mg PO DAILY [facility] Last Admin: 07/30/18 09:25 Dose: 25 mg Multivitamins/Minerals/Vitamin C (Tab-A-Vit -) 1 tab PO DAILY [facility] Last Admin: 07/30/18 09:25 Dose: 1 tab Nystatin (Mycostatin Cream -) 1 applic TP BID [facility] Last Admin: 07/30/18 09:26 Dose: 1 applic - Objective Vital Signs: Vital Signs Temperature 97.6 F 07/30/18 09:45 Pulse Rate 67 07/30/18 09:45 Respiratory Rate 20 07/30/18 09:45 Blood Pressure 134/80 07/30/18 09:45 O2 Sat by Pulse Oximetry (%) 98 07/29/18 21:00 Constitutional: Yes: No Distress, Calm Cardiovascular: Yes: Regular Rate and Rhythm Respiratory: Yes: Regular, CTA Bilaterally Gastrointestinal: Yes: Normal Bowel Sounds, Soft Musculoskeletal: Yes: Other Extremities: Yes: Erythema (resolving), Other Wound/Incision: Yes: Dressing Dry and Intact Neurological: Yes: Alert, Oriented Psychiatric: Yes: Alert, Oriented Labs: CBC, BMP 07/29/18 07:00 07/29/18 07:00 INR, PTT INR 1.19 (0.83-1.09) H 07/27/18 13:28 Assessment/Plan patricia List - Problems (1) Venous stasis ulcers of both lower extremities Code(s): I83.019 - VARICOSE VEINS OF RIGHT LOWER EXTREMITY W ULCER OF UNSP SITE ; I83.029 - VARICOSE VEINS OF LEFT LOWER EXTREMITY W ULCER OF UNSP SITE (2) Renal insufficiency Code(s): N28.9 - DISORDER OF KIDNEY AND URETER, UNSPECIFIED (3) Anemia Code(s): D64.9 - ANEMIA, UNSPECIFIED (4) Congestive heart failure Code(s): I50.9 - HEART FAILURE, UNSPECIFIED (5) Idiopathic chronic venous hypertension of both lower extremities with inflammation Code(s): I87.323 - CHRONIC VENOUS HTN W INFLAMMATION OF BILATERAL LOW EXTRM (6) Lymphedema Code(s): I89.0 - LYMPHEDEMA, NOT ELSEWHERE CLASSIFIED (7) Morbid obesity Code(s): E66.01 - MORBID (SEVERE) OBESITY DUE TO EXCESS CALORIES (8) Venous insufficiency of both lower extremities Code(s): I87.2 - VENOUS INSUFFICIENCY (CHRONIC) (PERIPHERAL) (9) Venous stasis dermatitis of both lower extremities Code(s): I87.2 - VENOUS INSUFFICIENCY (CHRONIC) (PERIPHERAL) Assessment/Plan Infected LE ulcers - pseudomonas/mrsa LLE cellulitis CKD Venous insufficiency LE lymphedema CHF Groin rash -- continue Zosyn/Vancomycin, -- nystatin -- monitor renal function closely -- continue wound care
[2018-07-30] MEDS ORDERED: PT OWN MED DRAWER 7, Y5N ONE (16:48)
[2018-07-30] MEDS: VANCOMYCIN 1 GM PREMIX - 1 GM/200 ML BAG IVPB SCH (16:56)
--- NOTE | 2018-07-30 17:19 | PN ---
Progress Note (short form) - Note Progress Note: Surgery Asked to evaluate patient for b/l Venous stasis ulcers. 58 year old male well known by Dr Eric with a history of CHF, HTN, Chronic Venous Stasis Ulcers who presents for evaluation of lower extremity ulcers. The patient reports that he was being evaluated by wound clinic who has been managing bilateral lower extremity venous stasis ulcers and was sent for admission due to growing MRSA from a recent wound culture 1 week ago. The patient notes that he has been suffering from ulcers for many years. He otherwise denies fevers, chills, SOB, chest pain, nausea, vomiting, abdominal pain, or changes with urination or bowel movements. Vital Signs Temp 97.8 F 07/30/18 14:05 Pulse 75 07/30/18 14:05 Resp 20 07/30/18 14:05 BP 125/66 07/30/18 14:05 Pulse Ox 96 07/30/18 09:00 Intake & Output 07/29/18 07/30/18 07/30/18 23:59 11:59 23:59 Intake Total 500 110 Output Total 600 400 Balance -100 -290 Intake: IVPB 50 Oral 500 Oral Supplement 60 Output: Urine 600 400 Void 600 400 Other: Voiding Method Toilet Urinal # Unmeasured Voids Void 1 Bowel Movement No No CBC, BMP 07/29/18 07:00 07/29/18 07:00 PE: A&Ox3, NAD unlabored resp on RA B/L LE with chronic skin changes extending from LE over feet with superficial venous ulcers throughout R>L no active d/c, no foul odor, no tracking erythema. Legs and feet warm to the touch. Problem List - Problems (1) Venous stasis ulcers of both lower extremities Assessment/Plan: Patient with B/L LE venous stasis ulcers growing MRSA with no indication for surgical intervention 1) IV ABX per ID 2) Algenate to b/l LE daily with Kurlex 3) compressive wraps with Colten wraps daily 4) Elevate b/l LE while in bed 5) re-consult vascular PRN Evaluation and plan discussed with Dr Eric Code(s): I83.019 - VARICOSE VEINS OF RIGHT LOWER EXTREMITY W ULCER OF UNSP SITE ; I83.029 - VARICOSE VEINS OF LEFT LOWER EXTREMITY W ULCER OF UNSP SITE
--- NOTE | 2018-07-30 18:15 | PN ---
Progress Note, Physician History of Present Illness: stable - Current Medication List Current Medications: Active Medications Aspirin (Asa -) 81 mg PO DAILY [facility] Last Admin: 07/30/18 09:25 Dose: 81 mg Calcium/Vitamin D (Oscal 250 Mg+D -) 1 tab PO MoWeFr@1000 [facility] Last Admin: 07/30/18 09:25 Dose: 1 tab Furosemide (Lasix -) 40 mg PO DAILY [facility] Last Admin: 07/30/18 09:25 Dose: 40 mg Heparin Sodium (Porcine) (Heparin -) 5,000 unit SQ BID [facility] Last Admin: 07/30/18 09:25 Dose: 5,000 unit Piperacillin Sod/Tazobactam (Sod 3.375 gm/ Dextrose) 50 mls @ 100 mls/hr IVPB Q8H-IV [facility]; Protocol Last Admin: 07/30/18 17:03 Dose: 100 mls/hr Vancomycin HCl (Vancomycin 1 Gm Premix -) 1 gm in 200 mls @ 133.333 mls/hr IVPB DAILY@1700 [facility]; Protocol Last Admin: 07/30/18 16:56 Dose: 133.333 mls/hr Metoprolol Succinate (Toprol Xl -) 25 mg PO DAILY [facility] Last Admin: 07/30/18 09:25 Dose: 25 mg Multivitamins/Minerals/Vitamin C (Tab-A-Vit -) 1 tab PO DAILY [facility] Last Admin: 07/30/18 09:25 Dose: 1 tab Nystatin (Mycostatin Cream -) 1 applic TP BID [facility] Last Admin: 07/30/18 09:26 Dose: 1 applic - Objective Vital Signs: Vital Signs Temperature 97.8 F 07/30/18 14:05 Pulse Rate 75 07/30/18 14:05 Respiratory Rate 20 07/30/18 14:05 Blood Pressure 125/66 07/30/18 14:05 O2 Sat by Pulse Oximetry (%) 96 07/30/18 09:00 Constitutional: Yes: No Distress HENT: Yes: Atraumatic Neck: Yes: Supple Cardiovascular: Yes: Regular Rate and Rhythm Respiratory: Yes: CTA Bilaterally Gastrointestinal: Yes: Normal Bowel Sounds Extremities: Yes: WNL, Other (b/l porfirio celluiis R more than left) Neurological: Yes: Alert, Oriented Labs: CBC, BMP 07/29/18 07:00 07/29/18 07:00 INR, PTT INR 1.19 (0.83-1.09) H 07/27/18 13:28 Problem List - Problems (1) Venous stasis ulcers of both lower extremities Code(s): I83.019 - VARICOSE VEINS OF RIGHT LOWER EXTREMITY W ULCER OF UNSP SITE ; I83.029 - VARICOSE VEINS OF LEFT LOWER EXTREMITY W ULCER OF UNSP SITE (2) Diastolic CHF Code(s): I50.30 - UNSPECIFIED DIASTOLIC (CONGESTIVE) HEART FAILURE (3) Venous insufficiency Code(s): I87.2 - VENOUS INSUFFICIENCY (CHRONIC) (PERIPHERAL) (4) Venous ulcer of right leg Assessment/Plan: on iv abx woundon iv abx elevate legs Code(s): I83.019 - VARICOSE VEINS OF RIGHT LOWER EXTREMITY W ULCER OF UNSP SITE ; L97.919 - NON-PRS CHRONIC ULC UNSP PRT OF R LOW LEG W UNSP SEVERITY (5) Venous ulcer of left lower extremity without varicose veins Code(s): I87.2 - VENOUS INSUFFICIENCY (CHRONIC) (PERIPHERAL); L97.929 - NON-PRS CHRONIC ULC UNSP PRT OF L LOW LEG W UNSP SEVERITY
[2018-07-31] MEDS ORDERED: PIPERACILLIN/TAZOBACTAM 3.375 GM VIAL IVPB ONE ×3 (01:19→16:53)
[2018-07-31] MEDS ORDERED: DEXTROSE 5%-WATER - 50 ML IVPB ONE ×3 (01:20→16:54)
[2018-07-31] MEDS: PIPERACILLIN/TAZOB 3.375 GM 3.375 GM in DEXTROSE 5%-WATER - 50 ML IVPB SCH ×3 (01:27→18:06)
[2018-07-31] MEDS: CALCIUM 250MG/VIT-D 125 UNITS 1 COMBO TABLET PO SCH ×2 (08:55→08:59)
[2018-07-31] MEDS: metoPROLOL SUCCINATE 25 MG TAB.SR.24H (FP) PO SCH (08:59)
[2018-07-31] MEDS: HEPARIN NA (PORCINE) 5,000 UNITS/ML 1ML VIAL SQ SCH ×2 (08:59→22:01)
[2018-07-31] MEDS: MULTIVITAMINS (DAILY MVI) TABLET (FP) PO SCH (08:59)
[2018-07-31] MEDS: FUROSEMIDE 40 MG TABLET (FP) PO SCH (08:59)
[2018-07-31] MEDS: ASPIRIN 81 MG CHEWABLE TABLETS PO SCH (08:59)
[2018-07-31] MEDS: NYSTATIN 100,000 UNIT/GM TOPICAL CREAM 15 GM TUBE TP SCH ×2 (09:01→21:30)
--- NOTE | 2018-07-31 12:33 | PN ---
Progress Note, Physician History of Present Illness: wounds are healing still some drainage and bleeding on the left leg no complaints - Current Medication List Current Medications: Active Medications Aspirin (Asa -) 81 mg PO DAILY [facility] Last Admin: 07/31/18 08:59 Dose: 81 mg Calcium/Vitamin D (Oscal 250 Mg+D -) 1 tab PO MoWeFr@1000 [facility] Last Admin: 07/31/18 08:59 Dose: 1 tab Furosemide (Lasix -) 40 mg PO DAILY [facility] Last Admin: 07/31/18 08:59 Dose: 40 mg Heparin Sodium (Porcine) (Heparin -) 5,000 unit SQ BID [facility] Last Admin: 07/31/18 08:59 Dose: 5,000 unit Piperacillin Sod/Tazobactam (Sod 3.375 gm/ Dextrose) 50 mls @ 100 mls/hr IVPB Q8H-IV [facility]; Protocol Last Admin: 07/31/18 09:00 Dose: 100 mls/hr Vancomycin HCl (Vancomycin 1 Gm Premix -) 1 gm in 200 mls @ 133.333 mls/hr IVPB DAILY@1700 [facility]; Protocol Last Admin: 07/30/18 16:56 Dose: 133.333 mls/hr Metoprolol Succinate (Toprol Xl -) 25 mg PO DAILY [facility] Last Admin: 07/31/18 08:59 Dose: 25 mg Multivitamins/Minerals/Vitamin C (Tab-A-Vit -) 1 tab PO DAILY [facility] Last Admin: 07/31/18 08:59 Dose: 1 tab Nystatin (Mycostatin Cream -) 1 applic TP BID [facility] Last Admin: 07/31/18 09:01 Dose: 1 applic - Objective Vital Signs: Vital Signs Temperature 98.6 F 07/31/18 10:00 Pulse Rate 64 07/31/18 10:00 Respiratory Rate 18 07/31/18 10:00 Blood Pressure 128/78 07/31/18 10:00 O2 Sat by Pulse Oximetry (%) 96 07/30/18 21:00 Constitutional: Yes: No Distress, Calm Cardiovascular: Yes: Regular Rate and Rhythm Respiratory: Yes: Regular, CTA Bilaterally Gastrointestinal: Yes: Normal Bowel Sounds, Soft Musculoskeletal: Yes: WNL Extremities: Yes: WNL Neurological: Yes: Alert, Oriented Psychiatric: Yes: Alert, Oriented Labs: CBC, BMP 07/29/18 07:00 07/29/18 07:00 INR, PTT INR 1.19 (0.83-1.09) H 07/27/18 13:28 Assessment/Plan Assessment/Plan farazm List - Problems (1) Venous stasis ulcers of both lower extremities Code(s): I83.019 - VARICOSE VEINS OF RIGHT LOWER EXTREMITY W ULCER OF UNSP SITE ; I83.029 - VARICOSE VEINS OF LEFT LOWER EXTREMITY W ULCER OF UNSP SITE (2) Renal insufficiency Code(s): N28.9 - DISORDER OF KIDNEY AND URETER, UNSPECIFIED (3) Anemia Code(s): D64.9 - ANEMIA, UNSPECIFIED (4) Congestive heart failure Code(s): I50.9 - HEART FAILURE, UNSPECIFIED (5) Idiopathic chronic venous hypertension of both lower extremities with inflammation Code(s): I87.323 - CHRONIC VENOUS HTN W INFLAMMATION OF BILATERAL LOW EXTRM (6) Lymphedema Code(s): I89.0 - LYMPHEDEMA, NOT ELSEWHERE CLASSIFIED (7) Morbid obesity Code(s): E66.01 - MORBID (SEVERE) OBESITY DUE TO EXCESS CALORIES (8) Venous insufficiency of both lower extremities Code(s): I87.2 - VENOUS INSUFFICIENCY (CHRONIC) (PERIPHERAL) (9) Venous stasis dermatitis of both lower extremities Code(s): I87.2 - VENOUS INSUFFICIENCY (CHRONIC) (PERIPHERAL) Assessment/Plan Infected LE ulcers - pseudomonas/mrsa LLE cellulitis CKD Venous insufficiency LE lymphedema CHF plan continue current abx rest as per the team patient improving
[2018-07-31] MEDS: VANCOMYCIN 1 GM PREMIX - 1 GM/200 ML BAG IVPB SCH (16:33)
[2018-07-31 16:55] VITALS: BMI 33.0
--- NOTE | 2018-07-31 18:43 | PN ---
Progress Note, Physician History of Present Illness: stable - Current Medication List Current Medications: Active Medications Aspirin (Asa -) 81 mg PO DAILY [facility] Last Admin: 07/31/18 08:59 Dose: 81 mg Calcium/Vitamin D (Oscal 250 Mg+D -) 1 tab PO MoWeFr@1000 [facility] Last Admin: 07/31/18 08:59 Dose: 1 tab Furosemide (Lasix -) 40 mg PO DAILY [facility] Last Admin: 07/31/18 08:59 Dose: 40 mg Heparin Sodium (Porcine) (Heparin -) 5,000 unit SQ BID [facility] Last Admin: 07/31/18 08:59 Dose: 5,000 unit Piperacillin Sod/Tazobactam (Sod 3.375 gm/ Dextrose) 50 mls @ 100 mls/hr IVPB Q8H-IV [facility]; Protocol Last Admin: 07/31/18 18:06 Dose: 100 mls/hr Vancomycin HCl (Vancomycin 1 Gm Premix -) 1 gm in 200 mls @ 133.333 mls/hr IVPB DAILY@1700 [facility]; Protocol Last Admin: 07/31/18 16:33 Dose: 133.333 mls/hr Metoprolol Succinate (Toprol Xl -) 25 mg PO DAILY [facility] Last Admin: 07/31/18 08:59 Dose: 25 mg Multivitamins/Minerals/Vitamin C (Tab-A-Vit -) 1 tab PO DAILY [facility] Last Admin: 07/31/18 08:59 Dose: 1 tab Nystatin (Mycostatin Cream -) 1 applic TP BID [facility] Last Admin: 07/31/18 09:01 Dose: 1 applic - Objective Vital Signs: Vital Signs Temperature 98.6 F 07/31/18 16:00 Pulse Rate 64 07/31/18 16:00 Respiratory Rate 20 07/31/18 16:00 Blood Pressure 128/78 07/31/18 16:00 O2 Sat by Pulse Oximetry (%) 96 07/30/18 21:00 Constitutional: Yes: No Distress HENT: Yes: Atraumatic Neck: Yes: Supple Cardiovascular: Yes: Regular Rate and Rhythm Respiratory: Yes: CTA Bilaterally Gastrointestinal: Yes: Normal Bowel Sounds Extremities: Yes: WNL Edema: No Peripheral Pulses WNL: Yes Neurological: Yes: Alert, Oriented Labs: CBC, BMP 07/29/18 07:00 07/29/18 07:00 INR, PTT INR 1.19 (0.83-1.09) H 07/27/18 13:28 Problem List - Problems (1) Venous stasis ulcers of both lower extremities Code(s): I83.019 - VARICOSE VEINS OF RIGHT LOWER EXTREMITY W ULCER OF UNSP SITE ; I83.029 - VARICOSE VEINS OF LEFT LOWER EXTREMITY W ULCER OF UNSP SITE (2) Diastolic CHF Assessment/Plan: continue home meds Code(s): I50.30 - UNSPECIFIED DIASTOLIC (CONGESTIVE) HEART FAILURE (3) Venous insufficiency Code(s): I87.2 - VENOUS INSUFFICIENCY (CHRONIC) (PERIPHERAL) (4) Venous ulcer of right leg Assessment/Plan: on iv abx woundon iv abx elevate legs Code(s): I83.019 - VARICOSE VEINS OF RIGHT LOWER EXTREMITY W ULCER OF UNSP SITE ; L97.919 - NON-PRS CHRONIC ULC UNSP PRT OF R LOW LEG W UNSP SEVERITY (5) Venous ulcer of left lower extremity without varicose veins Code(s): I87.2 - VENOUS INSUFFICIENCY (CHRONIC) (PERIPHERAL); L97.929 - NON-PRS CHRONIC ULC UNSP PRT OF L LOW LEG W UNSP SEVERITY
[2018-08-01] MEDS ORDERED: PIPERACILLIN/TAZOBACTAM 3.375 GM VIAL IVPB ONE ×4 (00:11→23:42)
[2018-08-01] MEDS ORDERED: DEXTROSE 5%-WATER - 50 ML IVPB ONE ×4 (00:12→23:42)
[2018-08-01] MEDS: PIPERACILLIN/TAZOB 3.375 GM 3.375 GM in DEXTROSE 5%-WATER - 50 ML IVPB SCH ×3 (01:23→17:08)
--- NOTE | 2018-08-01 08:11 | PN ---
Progress Note, Physician History of Present Illness: wounds are healing still some drainage and bleeding on the left leg no complaints - Current Medication List Current Medications: Active Medications Aspirin (Asa -) 81 mg PO DAILY [facility] Last Admin: 07/31/18 08:59 Dose: 81 mg Calcium/Vitamin D (Oscal 250 Mg+D -) 1 tab PO MoWeFr@1000 [facility] Last Admin: 07/31/18 08:59 Dose: 1 tab Furosemide (Lasix -) 40 mg PO DAILY [facility] Last Admin: 07/31/18 08:59 Dose: 40 mg Heparin Sodium (Porcine) (Heparin -) 5,000 unit SQ BID [facility] Last Admin: 07/31/18 22:01 Dose: 5,000 unit Piperacillin Sod/Tazobactam (Sod 3.375 gm/ Dextrose) 50 mls @ 100 mls/hr IVPB Q8H-IV [facility]; Protocol Last Admin: 08/01/18 01:23 Dose: 100 mls/hr Vancomycin HCl (Vancomycin 1 Gm Premix -) 1 gm in 200 mls @ 133.333 mls/hr IVPB DAILY@1700 [facility]; Protocol Last Admin: 07/31/18 16:33 Dose: 133.333 mls/hr Metoprolol Succinate (Toprol Xl -) 25 mg PO DAILY [facility] Last Admin: 07/31/18 08:59 Dose: 25 mg Multivitamins/Minerals/Vitamin C (Tab-A-Vit -) 1 tab PO DAILY [facility] Last Admin: 07/31/18 08:59 Dose: 1 tab Nystatin (Mycostatin Cream -) 1 applic TP BID [facility] Last Admin: 07/31/18 21:30 Dose: 1 applic - Objective Vital Signs: Vital Signs Temperature 98.4 F 08/01/18 06:18 Pulse Rate 84 08/01/18 06:18 Respiratory Rate 20 08/01/18 06:18 Blood Pressure 130/80 08/01/18 06:18 O2 Sat by Pulse Oximetry (%) 96 07/30/18 21:00 Constitutional: Yes: No Distress, Calm Cardiovascular: Yes: Regular Rate and Rhythm Respiratory: Yes: Regular, CTA Bilaterally Gastrointestinal: Yes: Normal Bowel Sounds, Soft Musculoskeletal: Yes: WNL Extremities: Yes: Other Wound/Incision: Yes: Dressing Dry and Intact, Dressing Removed, Other (wounds healing well) Neurological: Yes: Alert, Oriented Psychiatric: Yes: Alert, Oriented Labs: CBC, BMP 07/29/18 07:00 07/29/18 07:00 INR, PTT INR 1.19 (0.83-1.09) H 07/27/18 13:28 Assessment/Plan Assessment/Plan farazm List - Problems (1) Venous stasis ulcers of both lower extremities Code(s): I83.019 - VARICOSE VEINS OF RIGHT LOWER EXTREMITY W ULCER OF UNSP SITE ; I83.029 - VARICOSE VEINS OF LEFT LOWER EXTREMITY W ULCER OF UNSP SITE (2) Renal insufficiency Code(s): N28.9 - DISORDER OF KIDNEY AND URETER, UNSPECIFIED (3) Anemia Code(s): D64.9 - ANEMIA, UNSPECIFIED (4) Congestive heart failure Code(s): I50.9 - HEART FAILURE, UNSPECIFIED (5) Idiopathic chronic venous hypertension of both lower extremities with inflammation Code(s): I87.323 - CHRONIC VENOUS HTN W INFLAMMATION OF BILATERAL LOW EXTRM (6) Lymphedema Code(s): I89.0 - LYMPHEDEMA, NOT ELSEWHERE CLASSIFIED (7) Morbid obesity Code(s): E66.01 - MORBID (SEVERE) OBESITY DUE TO EXCESS CALORIES (8) Venous insufficiency of both lower extremities Code(s): I87.2 - VENOUS INSUFFICIENCY (CHRONIC) (PERIPHERAL) (9) Venous stasis dermatitis of both lower extremities Code(s): I87.2 - VENOUS INSUFFICIENCY (CHRONIC) (PERIPHERAL) Assessment/Plan Infected LE ulcers - pseudomonas/mrsa LLE cellulitis CKD Venous insufficiency LE lymphedema CHF plan continue current abx rest as per the team patient improving
[2018-08-01] MEDS: NYSTATIN 100,000 UNIT/GM TOPICAL CREAM 15 GM TUBE TP SCH ×2 (09:08→21:23)
[2018-08-01] MEDS: HEPARIN NA (PORCINE) 5,000 UNITS/ML 1ML VIAL SQ SCH ×2 (09:09→21:23)
[2018-08-01] MEDS: FUROSEMIDE 40 MG TABLET (FP) PO SCH (09:10)
[2018-08-01] MEDS: CALCIUM 250MG/VIT-D 125 UNITS 1 COMBO TABLET PO SCH (09:10)
[2018-08-01] MEDS: MULTIVITAMINS (DAILY MVI) TABLET (FP) PO SCH (09:10)
[2018-08-01] MEDS: metoPROLOL SUCCINATE 25 MG TAB.SR.24H (FP) PO SCH (09:10)
[2018-08-01] MEDS: ASPIRIN 81 MG CHEWABLE TABLETS PO SCH (09:10)
[2018-08-01] MEDS: VANCOMYCIN 1 GM PREMIX - 1 GM/200 ML BAG IVPB SCH (17:08)
--- NOTE | 2018-08-01 18:39 | PN ---
Progress Note, Physician - Current Medication List Current Medications: Active Medications Aspirin (Asa -) 81 mg PO DAILY [facility] Last Admin: 08/01/18 09:10 Dose: 81 mg Calcium/Vitamin D (Oscal 250 Mg+D -) 1 tab PO MoWeFr@1000 [facility] Last Admin: 08/01/18 09:10 Dose: 1 tab Furosemide (Lasix -) 40 mg PO DAILY [facility] Last Admin: 08/01/18 09:10 Dose: 40 mg Heparin Sodium (Porcine) (Heparin -) 5,000 unit SQ BID [facility] Last Admin: 08/01/18 09:09 Dose: 5,000 unit Piperacillin Sod/Tazobactam (Sod 3.375 gm/ Dextrose) 50 mls @ 100 mls/hr IVPB Q8H-IV [facility]; Protocol Last Admin: 08/01/18 17:08 Dose: 100 mls/hr Vancomycin HCl (Vancomycin 1 Gm Premix -) 1 gm in 200 mls @ 133.333 mls/hr IVPB DAILY@1700 [facility]; Protocol Last Admin: 08/01/18 17:08 Dose: 133.333 mls/hr Metoprolol Succinate (Toprol Xl -) 25 mg PO DAILY [facility] Last Admin: 08/01/18 09:10 Dose: 25 mg Multivitamins/Minerals/Vitamin C (Tab-A-Vit -) 1 tab PO DAILY [facility] Last Admin: 08/01/18 09:10 Dose: 1 tab Nystatin (Mycostatin Cream -) 1 applic TP BID [facility] Last Admin: 08/01/18 09:08 Dose: 1 applic - Objective Vital Signs: Vital Signs Temperature 97.9 F 08/01/18 17:16 Pulse Rate 61 08/01/18 17:16 Respiratory Rate 20 08/01/18 17:16 Blood Pressure 131/82 08/01/18 17:16 O2 Sat by Pulse Oximetry (%) 96 07/30/18 21:00 Constitutional: Yes: No Distress HENT: Yes: Atraumatic Neck: Yes: Supple Cardiovascular: Yes: Regular Rate and Rhythm Respiratory: Yes: CTA Bilaterally Gastrointestinal: Yes: Normal Bowel Sounds Extremities: Yes: Other (b/l porfirio cellulitis) Edema: Yes Edema: LLE: 1+, RLE: 1+ Neurological: Yes: Alert, Oriented Labs: CBC, BMP 07/29/18 07:00 07/29/18 07:00 INR, PTT INR 1.19 (0.83-1.09) H 07/27/18 13:28 Problem List - Problems (1) Venous stasis ulcers of both lower extremities Code(s): I83.019 - VARICOSE VEINS OF RIGHT LOWER EXTREMITY W ULCER OF UNSP SITE ; I83.029 - VARICOSE VEINS OF LEFT LOWER EXTREMITY W ULCER OF UNSP SITE (2) Diastolic CHF Assessment/Plan: continue home meds Code(s): I50.30 - UNSPECIFIED DIASTOLIC (CONGESTIVE) HEART FAILURE (3) Venous insufficiency Code(s): I87.2 - VENOUS INSUFFICIENCY (CHRONIC) (PERIPHERAL) (4) Venous ulcer of right leg Assessment/Plan: on iv abx woundcare on iv abx elevate legs Code(s): I83.019 - VARICOSE VEINS OF RIGHT LOWER EXTREMITY W ULCER OF UNSP SITE ; L97.919 - NON-PRS CHRONIC ULC UNSP PRT OF R LOW LEG W UNSP SEVERITY (5) Venous ulcer of left lower extremity without varicose veins Code(s): I87.2 - VENOUS INSUFFICIENCY (CHRONIC) (PERIPHERAL); L97.929 - NON-PRS CHRONIC ULC UNSP PRT OF L LOW LEG W UNSP SEVERITY
[2018-08-02] MEDS: PIPERACILLIN/TAZOB 3.375 GM 3.375 GM in DEXTROSE 5%-WATER - 50 ML IVPB SCH ×3 (01:36→18:40)
[2018-08-02] MEDS ORDERED: PIPERACILLIN/TAZOBACTAM 3.375 GM VIAL IVPB ONE ×2 (09:26→18:03)
[2018-08-02] MEDS ORDERED: DEXTROSE 5%-WATER - 50 ML IVPB ONE ×2 (09:26→18:03)
[2018-08-02] MEDS: HEPARIN NA (PORCINE) 5,000 UNITS/ML 1ML VIAL SQ SCH ×2 (09:32→21:57)
--- NOTE | 2018-08-02 09:32 | PN ---
Progress Note, Physician History of Present Illness: stable no new issues - Current Medication List Current Medications: Active Medications Aspirin (Asa -) 81 mg PO DAILY [facility] Last Admin: 08/01/18 09:10 Dose: 81 mg Calcium/Vitamin D (Oscal 250 Mg+D -) 1 tab PO MoWeFr@1000 [facility] Last Admin: 08/01/18 09:10 Dose: 1 tab Furosemide (Lasix -) 40 mg PO DAILY [facility] Last Admin: 08/01/18 09:10 Dose: 40 mg Heparin Sodium (Porcine) (Heparin -) 5,000 unit SQ BID [facility] Last Admin: 08/01/18 21:23 Dose: 5,000 unit Piperacillin Sod/Tazobactam (Sod 3.375 gm/ Dextrose) 50 mls @ 100 mls/hr IVPB Q8H-IV [facility]; Protocol Last Admin: 08/02/18 01:36 Dose: 100 mls/hr Vancomycin HCl (Vancomycin 1 Gm Premix -) 1 gm in 200 mls @ 133.333 mls/hr IVPB DAILY@1700 [facility]; Protocol Last Admin: 08/01/18 17:08 Dose: 133.333 mls/hr Metoprolol Succinate (Toprol Xl -) 25 mg PO DAILY [facility] Last Admin: 08/01/18 09:10 Dose: 25 mg Multivitamins/Minerals/Vitamin C (Tab-A-Vit -) 1 tab PO DAILY [facility] Last Admin: 08/01/18 09:10 Dose: 1 tab Nystatin (Mycostatin Cream -) 1 applic TP BID [facility] Last Admin: 08/01/18 21:23 Dose: 1 applic - Objective Vital Signs: Vital Signs Temperature 98.5 F 08/02/18 06:00 Pulse Rate 65 08/02/18 06:00 Respiratory Rate 20 08/02/18 06:00 Blood Pressure 167/94 08/02/18 06:00 O2 Sat by Pulse Oximetry (%) 96 07/30/18 21:00 Constitutional: Yes: No Distress, Calm Cardiovascular: Yes: Regular Rate and Rhythm Respiratory: Yes: Regular, CTA Bilaterally Gastrointestinal: Yes: Normal Bowel Sounds, Soft Musculoskeletal: Yes: WNL Extremities: Yes: WNL Neurological: Yes: Alert, Oriented Psychiatric: Yes: Alert, Oriented Labs: CBC, BMP 07/29/18 07:00 07/29/18 07:00 INR, PTT INR 1.19 (0.83-1.09) H 07/27/18 13:28 Assessment/Plan Assessment/Plan roblem List - Problems (1) Venous stasis ulcers of both lower extremities Code(s): I83.019 - VARICOSE VEINS OF RIGHT LOWER EXTREMITY W ULCER OF UNSP SITE ; I83.029 - VARICOSE VEINS OF LEFT LOWER EXTREMITY W ULCER OF UNSP SITE (2) Renal insufficiency Code(s): N28.9 - DISORDER OF KIDNEY AND URETER, UNSPECIFIED (3) Anemia Code(s): D64.9 - ANEMIA, UNSPECIFIED (4) Congestive heart failure Code(s): I50.9 - HEART FAILURE, UNSPECIFIED (5) Idiopathic chronic venous hypertension of both lower extremities with inflammation Code(s): I87.323 - CHRONIC VENOUS HTN W INFLAMMATION OF BILATERAL LOW EXTRM (6) Lymphedema Code(s): I89.0 - LYMPHEDEMA, NOT ELSEWHERE CLASSIFIED (7) Morbid obesity Code(s): E66.01 - MORBID (SEVERE) OBESITY DUE TO EXCESS CALORIES (8) Venous insufficiency of both lower extremities Code(s): I87.2 - VENOUS INSUFFICIENCY (CHRONIC) (PERIPHERAL) (9) Venous stasis dermatitis of both lower extremities Code(s): I87.2 - VENOUS INSUFFICIENCY (CHRONIC) (PERIPHERAL) Assessment/Plan Infected LE ulcers - pseudomonas/mrsa LLE cellulitis CKD Venous insufficiency LE lymphedema CHF plan continue current abx rest as per the team patient improving will change vanco to oral by monday rest as per the team
[2018-08-02] MEDS: ASPIRIN 81 MG CHEWABLE TABLETS PO SCH (09:33)
[2018-08-02] MEDS: MULTIVITAMINS (DAILY MVI) TABLET (FP) PO SCH (09:33)
[2018-08-02] MEDS: metoPROLOL SUCCINATE 25 MG TAB.SR.24H (FP) PO SCH (09:33)
[2018-08-02] MEDS: FUROSEMIDE 40 MG TABLET (FP) PO SCH (09:33)
[2018-08-02] MEDS: NYSTATIN 100,000 UNIT/GM TOPICAL CREAM 15 GM TUBE TP SCH ×2 (09:34→21:58)
[2018-08-02] MEDS ORDERED: PT OWN MED DRAWER 7, Y5N ONE (16:02)
[2018-08-02] MEDS: VANCOMYCIN 1 GM PREMIX - 1 GM/200 ML BAG IVPB SCH (16:07)
--- NOTE | 2018-08-02 18:20 | PN ---
Progress Note, Physician - Current Medication List Current Medications: Active Medications Aspirin (Asa -) 81 mg PO DAILY [facility] Last Admin: 08/02/18 09:33 Dose: 81 mg Calcium/Vitamin D (Oscal 250 Mg+D -) 1 tab PO MoWeFr@1000 [facility] Last Admin: 08/01/18 09:10 Dose: 1 tab Furosemide (Lasix -) 40 mg PO DAILY [facility] Last Admin: 08/02/18 09:33 Dose: 40 mg Heparin Sodium (Porcine) (Heparin -) 5,000 unit SQ BID [facility] Last Admin: 08/02/18 09:32 Dose: 5,000 unit Piperacillin Sod/Tazobactam (Sod 3.375 gm/ Dextrose) 50 mls @ 100 mls/hr IVPB Q8H-IV [facility]; Protocol Last Admin: 08/02/18 09:33 Dose: 100 mls/hr Vancomycin HCl (Vancomycin 1 Gm Premix -) 1 gm in 200 mls @ 133.333 mls/hr IVPB DAILY@1700 [facility]; Protocol Last Admin: 08/02/18 16:07 Dose: 133.333 mls/hr Metoprolol Succinate (Toprol Xl -) 25 mg PO DAILY [facility] Last Admin: 08/02/18 09:33 Dose: 25 mg Multivitamins/Minerals/Vitamin C (Tab-A-Vit -) 1 tab PO DAILY [facility] Last Admin: 08/02/18 09:33 Dose: 1 tab Nystatin (Mycostatin Cream -) 1 applic TP BID [facility] Last Admin: 08/02/18 09:34 Dose: 1 applic - Objective Vital Signs: Vital Signs Temperature 97.7 F 08/02/18 17:02 Pulse Rate 62 08/02/18 17:02 Respiratory Rate 20 08/02/18 17:02 Blood Pressure 125/72 08/02/18 17:02 O2 Sat by Pulse Oximetry (%) 99 08/02/18 09:00 Constitutional: Yes: No Distress HENT: Yes: Atraumatic Neck: Yes: Supple Cardiovascular: Yes: Regular Rate and Rhythm Respiratory: Yes: CTA Bilaterally Gastrointestinal: Yes: Normal Bowel Sounds Labs: CBC, BMP 07/29/18 07:00 07/29/18 07:00 INR, PTT INR 1.19 (0.83-1.09) H 07/27/18 13:28 Problem List - Problems (1) Venous stasis ulcers of both lower extremities Code(s): I83.019 - VARICOSE VEINS OF RIGHT LOWER EXTREMITY W ULCER OF UNSP SITE ; I83.029 - VARICOSE VEINS OF LEFT LOWER EXTREMITY W ULCER OF UNSP SITE (2) Diastolic CHF Assessment/Plan: continue home meds Code(s): I50.30 - UNSPECIFIED DIASTOLIC (CONGESTIVE) HEART FAILURE (3) Venous insufficiency Code(s): I87.2 - VENOUS INSUFFICIENCY (CHRONIC) (PERIPHERAL) (4) Venous ulcer of right leg Assessment/Plan: on iv abx woundcare on iv abx elevate legs Code(s): I83.019 - VARICOSE VEINS OF RIGHT LOWER EXTREMITY W ULCER OF UNSP SITE ; L97.919 - NON-PRS CHRONIC ULC UNSP PRT OF R LOW LEG W UNSP SEVERITY (5) Venous ulcer of left lower extremity without varicose veins Code(s): I87.2 - VENOUS INSUFFICIENCY (CHRONIC) (PERIPHERAL); L97.929 - NON-PRS CHRONIC ULC UNSP PRT OF L LOW LEG W UNSP SEVERITY
[2018-08-03] MEDS ORDERED: PIPERACILLIN/TAZOBACTAM 3.375 GM VIAL IVPB ONE ×3 (01:42→17:15)
[2018-08-03] MEDS ORDERED: DEXTROSE 5%-WATER - 50 ML IVPB ONE ×3 (01:43→17:15)
[2018-08-03] MEDS: PIPERACILLIN/TAZOB 3.375 GM 3.375 GM in DEXTROSE 5%-WATER - 50 ML IVPB SCH ×3 (02:01→17:21)
--- NOTE | 2018-08-03 10:29 | PN ---
Progress Note, Physician History of Present Illness: stable no new issues - Current Medication List Current Medications: Active Medications Aspirin (Asa -) 81 mg PO DAILY [facility] Last Admin: 08/02/18 09:33 Dose: 81 mg Calcium/Vitamin D (Oscal 250 Mg+D -) 1 tab PO MoWeFr@1000 [facility] Last Admin: 08/01/18 09:10 Dose: 1 tab Furosemide (Lasix -) 40 mg PO DAILY [facility] Last Admin: 08/02/18 09:33 Dose: 40 mg Heparin Sodium (Porcine) (Heparin -) 5,000 unit SQ BID [facility] Last Admin: 08/02/18 21:57 Dose: 5,000 unit Piperacillin Sod/Tazobactam (Sod 3.375 gm/ Dextrose) 50 mls @ 100 mls/hr IVPB Q8H-IV [facility]; Protocol Last Admin: 08/03/18 02:01 Dose: 100 mls/hr Vancomycin HCl (Vancomycin 1 Gm Premix -) 1 gm in 200 mls @ 133.333 mls/hr IVPB DAILY@1700 [facility]; Protocol Last Admin: 08/02/18 16:07 Dose: 133.333 mls/hr Metoprolol Succinate (Toprol Xl -) 25 mg PO DAILY [facility] Last Admin: 08/02/18 09:33 Dose: 25 mg Multivitamins/Minerals/Vitamin C (Tab-A-Vit -) 1 tab PO DAILY [facility] Last Admin: 08/02/18 09:33 Dose: 1 tab Nystatin (Mycostatin Cream -) 1 applic TP BID [facility] Last Admin: 08/02/18 21:58 Dose: 1 applic - Objective Vital Signs: Vital Signs Temperature 98.6 F 08/03/18 06:23 Pulse Rate 71 08/03/18 06:23 Respiratory Rate 20 08/03/18 06:23 Blood Pressure 123/68 08/03/18 06:23 O2 Sat by Pulse Oximetry (%) 99 08/02/18 09:00 Constitutional: Yes: No Distress, Calm Respiratory: Yes: Regular, CTA Bilaterally Gastrointestinal: Yes: Normal Bowel Sounds, Soft Musculoskeletal: Yes: WNL Extremities: Yes: Other Wound/Incision: Yes: Dressing Dry and Intact Neurological: Yes: Alert, Oriented Psychiatric: Yes: Alert, Oriented Labs: CBC, BMP 07/29/18 07:00 07/29/18 07:00 INR, PTT INR 1.19 (0.83-1.09) H 07/27/18 13:28 Assessment/Plan Assessment/Plan roblem List - Problems (1) Venous stasis ulcers of both lower extremities Code(s): I83.019 - VARICOSE VEINS OF RIGHT LOWER EXTREMITY W ULCER OF UNSP SITE ; I83.029 - VARICOSE VEINS OF LEFT LOWER EXTREMITY W ULCER OF UNSP SITE (2) Renal insufficiency Code(s): N28.9 - DISORDER OF KIDNEY AND URETER, UNSPECIFIED (3) Anemia Code(s): D64.9 - ANEMIA, UNSPECIFIED (4) Congestive heart failure Code(s): I50.9 - HEART FAILURE, UNSPECIFIED (5) Idiopathic chronic venous hypertension of both lower extremities with inflammation Code(s): I87.323 - CHRONIC VENOUS HTN W INFLAMMATION OF BILATERAL LOW EXTRM (6) Lymphedema Code(s): I89.0 - LYMPHEDEMA, NOT ELSEWHERE CLASSIFIED (7) Morbid obesity Code(s): E66.01 - MORBID (SEVERE) OBESITY DUE TO EXCESS CALORIES (8) Venous insufficiency of both lower extremities Code(s): I87.2 - VENOUS INSUFFICIENCY (CHRONIC) (PERIPHERAL) (9) Venous stasis dermatitis of both lower extremities Code(s): I87.2 - VENOUS INSUFFICIENCY (CHRONIC) (PERIPHERAL) Assessment/Plan Infected LE ulcers - pseudomonas/mrsa LLE cellulitis CKD Venous insufficiency LE lymphedema CHF plan continue current mgmt continue wound care rest as per the team
[2018-08-03] MEDS: HEPARIN NA (PORCINE) 5,000 UNITS/ML 1ML VIAL SQ SCH (11:37)
[2018-08-03] MEDS: ASPIRIN 81 MG CHEWABLE TABLETS PO SCH (11:38)
[2018-08-03] MEDS: metoPROLOL SUCCINATE 25 MG TAB.SR.24H (FP) PO SCH (11:38)
[2018-08-03] MEDS: MULTIVITAMINS (DAILY MVI) TABLET (FP) PO SCH (11:38)
[2018-08-03] MEDS: FUROSEMIDE 40 MG TABLET (FP) PO SCH (11:39)
[2018-08-03] MEDS: CALCIUM 250MG/VIT-D 125 UNITS 1 COMBO TABLET PO SCH (11:39)
--- NOTE | 2018-08-03 15:44 | PN ---
Progress Note, Physician - Current Medication List Current Medications: Active Medications Aspirin (Asa -) 81 mg PO DAILY [facility] Last Admin: 08/03/18 11:38 Dose: 81 mg Calcium/Vitamin D (Oscal 250 Mg+D -) 1 tab PO MoWeFr@1000 [facility] Last Admin: 08/03/18 11:39 Dose: 1 tab Furosemide (Lasix -) 40 mg PO DAILY [facility] Last Admin: 08/03/18 11:39 Dose: 40 mg Heparin Sodium (Porcine) (Heparin -) 5,000 unit SQ BID [facility] Last Admin: 08/03/18 11:37 Dose: 5,000 unit Piperacillin Sod/Tazobactam (Sod 3.375 gm/ Dextrose) 50 mls @ 100 mls/hr IVPB Q8H-IV [facility]; Protocol Last Admin: 08/03/18 11:45 Dose: 100 mls/hr Vancomycin HCl (Vancomycin 1 Gm Premix -) 1 gm in 200 mls @ 133.333 mls/hr IVPB DAILY@1700 [facility]; Protocol Last Admin: 08/02/18 16:07 Dose: 133.333 mls/hr Metoprolol Succinate (Toprol Xl -) 25 mg PO DAILY [facility] Last Admin: 08/03/18 11:38 Dose: 25 mg Multivitamins/Minerals/Vitamin C (Tab-A-Vit -) 1 tab PO DAILY [facility] Last Admin: 08/03/18 11:38 Dose: 1 tab Nystatin (Mycostatin Cream -) 1 applic TP BID [facility] Last Admin: 08/02/18 21:58 Dose: 1 applic - Objective Vital Signs: Vital Signs Temperature 97.9 F 08/03/18 13:45 Pulse Rate 60 08/03/18 13:45 Respiratory Rate 20 08/03/18 13:45 Blood Pressure 117/65 08/03/18 13:45 O2 Sat by Pulse Oximetry (%) 99 08/02/18 09:00 Constitutional: Yes: No Distress HENT: Yes: Atraumatic Neck: Yes: Supple Cardiovascular: Yes: Regular Rate and Rhythm Respiratory: Yes: CTA Bilaterally Gastrointestinal: Yes: Normal Bowel Sounds Extremities: Yes: Other (b/l porfirio cellulitis wounds edema) Edema: No Neurological: Yes: Alert, Oriented Labs: CBC, BMP 07/29/18 07:00 07/29/18 07:00 INR, PTT INR 1.19 (0.83-1.09) H 07/27/18 13:28 Problem List - Problems (1) Venous stasis ulcers of both lower extremities Code(s): I83.019 - VARICOSE VEINS OF RIGHT LOWER EXTREMITY W ULCER OF UNSP SITE ; I83.029 - VARICOSE VEINS OF LEFT LOWER EXTREMITY W ULCER OF UNSP SITE (2) Diastolic CHF Assessment/Plan: continue home meds Code(s): I50.30 - UNSPECIFIED DIASTOLIC (CONGESTIVE) HEART FAILURE (3) Venous insufficiency Code(s): I87.2 - VENOUS INSUFFICIENCY (CHRONIC) (PERIPHERAL) (4) Venous ulcer of right leg Assessment/Plan: on iv abx woundcare on iv abx elevate legs Code(s): I83.019 - VARICOSE VEINS OF RIGHT LOWER EXTREMITY W ULCER OF UNSP SITE ; L97.919 - NON-PRS CHRONIC ULC UNSP PRT OF R LOW LEG W UNSP SEVERITY (5) Venous ulcer of left lower extremity without varicose veins Code(s): I87.2 - VENOUS INSUFFICIENCY (CHRONIC) (PERIPHERAL); L97.929 - NON-PRS CHRONIC ULC UNSP PRT OF L LOW LEG W UNSP SEVERITY (6) Lymphedema Code(s): I89.0 - LYMPHEDEMA, NOT ELSEWHERE CLASSIFIED
[2018-08-03] MEDS ORDERED: PT OWN MED DRAWER 7, Y5N ONE (17:15)
[2018-08-03] MEDS: VANCOMYCIN 1 GM PREMIX - 1 GM/200 ML BAG IVPB SCH (17:22)
[2018-08-03] MEDS: NYSTATIN 100,000 UNIT/GM TOPICAL CREAM 15 GM TUBE TP SCH ×2 (17:36→22:45)
[2018-08-04] MEDS ORDERED: PIPERACILLIN/TAZOBACTAM 3.375 GM VIAL IVPB ONE ×3 (01:45→17:27)
[2018-08-04] MEDS ORDERED: DEXTROSE 5%-WATER - 50 ML IVPB ONE ×3 (01:46→17:28)
[2018-08-04] MEDS: PIPERACILLIN/TAZOB 3.375 GM 3.375 GM in DEXTROSE 5%-WATER - 50 ML IVPB SCH ×3 (02:30→18:42)
[2018-08-04] MEDS: FUROSEMIDE 40 MG TABLET (FP) PO SCH (09:35)
[2018-08-04] MEDS: ASPIRIN 81 MG CHEWABLE TABLETS PO SCH (09:35)
[2018-08-04] MEDS: metoPROLOL SUCCINATE 25 MG TAB.SR.24H (FP) PO SCH (09:35)
[2018-08-04] MEDS: MULTIVITAMINS (DAILY MVI) TABLET (FP) PO SCH (09:36)
[2018-08-04] MEDS: NYSTATIN 100,000 UNIT/GM TOPICAL CREAM 15 GM TUBE TP SCH ×2 (09:37→21:28)
--- NOTE | 2018-08-04 10:34 | PN ---
Progress Note, Physician History of Present Illness: stable no new issues - Current Medication List Current Medications: Active Medications Aspirin (Asa -) 81 mg PO DAILY [facility] Last Admin: 08/04/18 09:35 Dose: 81 mg Calcium/Vitamin D (Oscal 250 Mg+D -) 1 tab PO MoWeFr@1000 [facility] Last Admin: 08/03/18 11:39 Dose: 1 tab Furosemide (Lasix -) 40 mg PO DAILY [facility] Last Admin: 08/04/18 09:35 Dose: 40 mg Piperacillin Sod/Tazobactam (Sod 3.375 gm/ Dextrose) 50 mls @ 100 mls/hr IVPB Q8H-IV [facility]; Protocol Last Admin: 08/04/18 09:36 Dose: 100 mls/hr Vancomycin HCl (Vancomycin 1 Gm Premix -) 1 gm in 200 mls @ 133.333 mls/hr IVPB DAILY@1700 [facility]; Protocol Last Admin: 08/03/18 17:22 Dose: 133.333 mls/hr Metoprolol Succinate (Toprol Xl -) 25 mg PO DAILY [facility] Last Admin: 08/04/18 09:35 Dose: 25 mg Multivitamins/Minerals/Vitamin C (Tab-A-Vit -) 1 tab PO DAILY [facility] Last Admin: 08/04/18 09:36 Dose: 1 tab Nystatin (Mycostatin Cream -) 1 applic TP BID [facility] Last Admin: 08/04/18 09:37 Dose: 1 applic - Objective Vital Signs: Vital Signs Temperature 98.4 F 08/04/18 06:00 Pulse Rate 72 08/04/18 06:00 Respiratory Rate 20 08/04/18 06:00 Blood Pressure 130/77 08/04/18 06:00 O2 Sat by Pulse Oximetry (%) 100 08/03/18 21:00 Constitutional: Yes: No Distress, Calm Cardiovascular: Yes: Regular Rate and Rhythm Respiratory: Yes: Regular, CTA Bilaterally Gastrointestinal: Yes: Normal Bowel Sounds, Soft Musculoskeletal: Yes: Other Extremities: Yes: Other Wound/Incision: Yes: Dressing Removed Neurological: Yes: Alert, Oriented Psychiatric: Yes: Alert, Oriented Labs: CBC, BMP 07/29/18 07:00 07/29/18 07:00 INR, PTT INR 1.19 (0.83-1.09) H 07/27/18 13:28 Assessment/Plan Assessment/Plan roblem List - Problems (1) Venous stasis ulcers of both lower extremities Code(s): I83.019 - VARICOSE VEINS OF RIGHT LOWER EXTREMITY W ULCER OF UNSP SITE ; I83.029 - VARICOSE VEINS OF LEFT LOWER EXTREMITY W ULCER OF UNSP SITE (2) Renal insufficiency Code(s): N28.9 - DISORDER OF KIDNEY AND URETER, UNSPECIFIED (3) Anemia Code(s): D64.9 - ANEMIA, UNSPECIFIED (4) Congestive heart failure Code(s): I50.9 - HEART FAILURE, UNSPECIFIED (5) Idiopathic chronic venous hypertension of both lower extremities with inflammation Code(s): I87.323 - CHRONIC VENOUS HTN W INFLAMMATION OF BILATERAL LOW EXTRM (6) Lymphedema Code(s): I89.0 - LYMPHEDEMA, NOT ELSEWHERE CLASSIFIED (7) Morbid obesity Code(s): E66.01 - MORBID (SEVERE) OBESITY DUE TO EXCESS CALORIES (8) Venous insufficiency of both lower extremities Code(s): I87.2 - VENOUS INSUFFICIENCY (CHRONIC) (PERIPHERAL) (9) Venous stasis dermatitis of both lower extremities Code(s): I87.2 - VENOUS INSUFFICIENCY (CHRONIC) (PERIPHERAL) Assessment/Plan Infected LE ulcers - pseudomonas/mrsa LLE cellulitis CKD Venous insufficiency LE lymphedema CHF plan will change to oral abx after tomorrow continue wound care rest as per the team
[2018-08-04] MEDS ORDERED: PT OWN MED DRAWER 7, Y5N ONE (17:28)
[2018-08-04] MEDS: VANCOMYCIN 1 GM PREMIX - 1 GM/200 ML BAG IVPB SCH (17:36)
--- NOTE | 2018-08-04 21:47 | PN ---
Progress Note, Physician - Current Medication List Current Medications: Active Medications Aspirin (Asa -) 81 mg PO DAILY [facility] Last Admin: 08/04/18 09:35 Dose: 81 mg Calcium/Vitamin D (Oscal 250 Mg+D -) 1 tab PO MoWeFr@1000 [facility] Last Admin: 08/03/18 11:39 Dose: 1 tab Furosemide (Lasix -) 40 mg PO DAILY [facility] Last Admin: 08/04/18 09:35 Dose: 40 mg Piperacillin Sod/Tazobactam (Sod 3.375 gm/ Dextrose) 50 mls @ 100 mls/hr IVPB Q8H-IV [facility]; Protocol Last Admin: 08/04/18 18:42 Dose: 100 mls/hr Vancomycin HCl (Vancomycin 1 Gm Premix -) 1 gm in 200 mls @ 133.333 mls/hr IVPB DAILY@1700 [facility]; Protocol Last Admin: 08/04/18 17:36 Dose: 133.333 mls/hr Metoprolol Succinate (Toprol Xl -) 25 mg PO DAILY [facility] Last Admin: 08/04/18 09:35 Dose: 25 mg Multivitamins/Minerals/Vitamin C (Tab-A-Vit -) 1 tab PO DAILY [facility] Last Admin: 08/04/18 09:36 Dose: 1 tab Nystatin (Mycostatin Cream -) 1 applic TP BID [facility] Last Admin: 08/04/18 21:28 Dose: 1 applic - Objective Vital Signs: Vital Signs Temperature 97.8 F 08/04/18 15:07 Pulse Rate 61 08/04/18 15:07 Respiratory Rate 20 08/04/18 15:07 Blood Pressure 130/78 08/04/18 15:07 O2 Sat by Pulse Oximetry (%) 100 08/04/18 09:00 HENT: Yes: WNL Neck: Yes: WNL, Supple Cardiovascular: Yes: WNL, Regular Rate and Rhythm Respiratory: Yes: WNL, Regular, CTA Bilaterally Gastrointestinal: Yes: WNL, Normal Bowel Sounds, Soft Extremities: Yes: Other (Venous stasis ulcer) Labs: CBC, BMP 07/29/18 07:00 07/29/18 07:00 INR, PTT INR 1.19 (0.83-1.09) H 07/27/18 13:28 Problem List - Problems (1) Lymphedema Code(s): I89.0 - LYMPHEDEMA, NOT ELSEWHERE CLASSIFIED (2) Venous stasis ulcers of both lower extremities Code(s): I83.019 - VARICOSE VEINS OF RIGHT LOWER EXTREMITY W ULCER OF UNSP SITE ; I83.029 - VARICOSE VEINS OF LEFT LOWER EXTREMITY W ULCER OF UNSP SITE
[2018-08-05] MEDS ORDERED: PIPERACILLIN/TAZOBACTAM 3.375 GM VIAL IVPB ONE ×3 (01:19→17:27)
[2018-08-05] MEDS ORDERED: DEXTROSE 5%-WATER - 50 ML IVPB ONE ×3 (01:19→17:27)
[2018-08-05] MEDS: PIPERACILLIN/TAZOB 3.375 GM 3.375 GM in DEXTROSE 5%-WATER - 50 ML IVPB SCH ×3 (01:25→19:09)
[2018-08-05] MEDS: MULTIVITAMINS (DAILY MVI) TABLET (FP) PO SCH (09:31)
[2018-08-05] MEDS: FUROSEMIDE 40 MG TABLET (FP) PO SCH (09:31)
[2018-08-05] MEDS: ASPIRIN 81 MG CHEWABLE TABLETS PO SCH (09:31)
[2018-08-05] MEDS: metoPROLOL SUCCINATE 25 MG TAB.SR.24H (FP) PO SCH (09:31)
[2018-08-05] MEDS: NYSTATIN 100,000 UNIT/GM TOPICAL CREAM 15 GM TUBE TP SCH ×2 (09:35→21:56)
--- NOTE | 2018-08-05 11:56 | PN ---
Progress Note, Physician History of Present Illness: doing well no issues - Current Medication List Current Medications: Active Medications Aspirin (Asa -) 81 mg PO DAILY [facility] Last Admin: 08/05/18 09:31 Dose: 81 mg Calcium/Vitamin D (Oscal 250 Mg+D -) 1 tab PO MoWeFr@1000 [facility] Last Admin: 08/03/18 11:39 Dose: 1 tab Furosemide (Lasix -) 40 mg PO DAILY [facility] Last Admin: 08/05/18 09:31 Dose: 40 mg Piperacillin Sod/Tazobactam (Sod 3.375 gm/ Dextrose) 50 mls @ 100 mls/hr IVPB Q8H-IV [facility]; Protocol Last Admin: 08/05/18 09:32 Dose: 100 mls/hr Vancomycin HCl (Vancomycin 1 Gm Premix -) 1 gm in 200 mls @ 133.333 mls/hr IVPB DAILY@1700 [facility]; Protocol Last Admin: 08/04/18 17:36 Dose: 133.333 mls/hr Metoprolol Succinate (Toprol Xl -) 25 mg PO DAILY [facility] Last Admin: 08/05/18 09:31 Dose: 25 mg Multivitamins/Minerals/Vitamin C (Tab-A-Vit -) 1 tab PO DAILY [facility] Last Admin: 08/05/18 09:31 Dose: 1 tab Nystatin (Mycostatin Cream -) 1 applic TP BID [facility] Last Admin: 08/05/18 09:35 Dose: 1 applic - Objective Vital Signs: Vital Signs Temperature 97.8 F 08/05/18 06:00 Pulse Rate 72 08/05/18 06:00 Respiratory Rate 20 08/05/18 06:00 Blood Pressure 132/76 08/05/18 06:00 O2 Sat by Pulse Oximetry (%) 100 08/04/18 21:00 Constitutional: Yes: No Distress, Calm Cardiovascular: Yes: Regular Rate and Rhythm Respiratory: Yes: Regular, CTA Bilaterally Gastrointestinal: Yes: Normal Bowel Sounds, Soft Musculoskeletal: Yes: WNL Extremities: Yes: Other Wound/Incision: Yes: Dressing Dry and Intact Neurological: Yes: Alert, Oriented Psychiatric: Yes: Alert, Oriented Labs: CBC, BMP 07/29/18 07:00 07/29/18 07:00 INR, PTT INR 1.19 (0.83-1.09) H 07/27/18 13:28 Assessment/Plan Assessment/Plan roblem List - Problems (1) Venous stasis ulcers of both lower extremities Code(s): I83.019 - VARICOSE VEINS OF RIGHT LOWER EXTREMITY W ULCER OF UNSP SITE ; I83.029 - VARICOSE VEINS OF LEFT LOWER EXTREMITY W ULCER OF UNSP SITE (2) Renal insufficiency Code(s): N28.9 - DISORDER OF KIDNEY AND URETER, UNSPECIFIED (3) Anemia Code(s): D64.9 - ANEMIA, UNSPECIFIED (4) Congestive heart failure Code(s): I50.9 - HEART FAILURE, UNSPECIFIED (5) Idiopathic chronic venous hypertension of both lower extremities with inflammation Code(s): I87.323 - CHRONIC VENOUS HTN W INFLAMMATION OF BILATERAL LOW EXTRM (6) Lymphedema Code(s): I89.0 - LYMPHEDEMA, NOT ELSEWHERE CLASSIFIED (7) Morbid obesity Code(s): E66.01 - MORBID (SEVERE) OBESITY DUE TO EXCESS CALORIES (8) Venous insufficiency of both lower extremities Code(s): I87.2 - VENOUS INSUFFICIENCY (CHRONIC) (PERIPHERAL) (9) Venous stasis dermatitis of both lower extremities Code(s): I87.2 - VENOUS INSUFFICIENCY (CHRONIC) (PERIPHERAL) Assessment/Plan Infected LE ulcers - pseudomonas/mrsa LLE cellulitis CKD Venous insufficiency LE lymphedema CHF plan continue current mgmt continue wound care rest as per the team
--- NOTE | 2018-08-05 15:24 | PN ---
Progress Note, Physician History of Present Illness: stable - Current Medication List Current Medications: Active Medications Aspirin (Asa -) 81 mg PO DAILY [facility] Last Admin: 08/05/18 09:31 Dose: 81 mg Calcium/Vitamin D (Oscal 250 Mg+D -) 1 tab PO MoWeFr@1000 [facility] Last Admin: 08/03/18 11:39 Dose: 1 tab Furosemide (Lasix -) 40 mg PO DAILY [facility] Last Admin: 08/05/18 09:31 Dose: 40 mg Piperacillin Sod/Tazobactam (Sod 3.375 gm/ Dextrose) 50 mls @ 100 mls/hr IVPB Q8H-IV [facility]; Protocol Last Admin: 08/05/18 09:32 Dose: 100 mls/hr Vancomycin HCl (Vancomycin 1 Gm Premix -) 1 gm in 200 mls @ 133.333 mls/hr IVPB DAILY@1700 [facility]; Protocol Last Admin: 08/04/18 17:36 Dose: 133.333 mls/hr Metoprolol Succinate (Toprol Xl -) 25 mg PO DAILY [facility] Last Admin: 08/05/18 09:31 Dose: 25 mg Multivitamins/Minerals/Vitamin C (Tab-A-Vit -) 1 tab PO DAILY [facility] Last Admin: 08/05/18 09:31 Dose: 1 tab Nystatin (Mycostatin Cream -) 1 applic TP BID [facility] Last Admin: 08/05/18 09:35 Dose: 1 applic - Objective Vital Signs: Vital Signs Temperature 97.8 F 08/05/18 06:00 Pulse Rate 72 08/05/18 06:00 Respiratory Rate 20 08/05/18 06:00 Blood Pressure 132/76 08/05/18 06:00 O2 Sat by Pulse Oximetry (%) 100 08/04/18 21:00 Constitutional: Yes: No Distress HENT: Yes: Atraumatic Neck: Yes: Supple Cardiovascular: Yes: Regular Rate and Rhythm Respiratory: Yes: CTA Bilaterally Gastrointestinal: Yes: Normal Bowel Sounds Extremities: Yes: Other (b/l porfirio infection wounds) Edema: Yes Edema: LLE: 3+, RLE: 3+ Neurological: Yes: Alert, Oriented Labs: CBC, BMP 07/29/18 07:00 07/29/18 07:00 INR, PTT INR 1.19 (0.83-1.09) H 04/12/19 13:28 Problem List - Problems (1) Venous stasis ulcers of both lower extremities Code(s): I83.019 - VARICOSE VEINS OF RIGHT LOWER EXTREMITY W ULCER OF UNSP SITE ; I83.029 - VARICOSE VEINS OF LEFT LOWER EXTREMITY W ULCER OF UNSP SITE (2) Diastolic CHF Assessment/Plan: continue home meds Code(s): I50.30 - UNSPECIFIED DIASTOLIC (CONGESTIVE) HEART FAILURE (3) Venous insufficiency Code(s): I87.2 - VENOUS INSUFFICIENCY (CHRONIC) (PERIPHERAL) (4) Venous ulcer of right leg Assessment/Plan: on iv abx woundcare on iv abx elevate legs Code(s): I83.019 - VARICOSE VEINS OF RIGHT LOWER EXTREMITY W ULCER OF UNSP SITE ; L97.919 - NON-PRS CHRONIC ULC UNSP PRT OF R LOW LEG W UNSP SEVERITY (5) Venous ulcer of left lower extremity without varicose veins Code(s): I87.2 - VENOUS INSUFFICIENCY (CHRONIC) (PERIPHERAL); L97.929 - NON-PRS CHRONIC ULC UNSP PRT OF L LOW LEG W UNSP SEVERITY (6) Lymphedema Assessment/Plan: elevate legs Code(s): I89.0 - LYMPHEDEMA, NOT ELSEWHERE CLASSIFIED
[2018-08-05] MEDS ORDERED: PT OWN MED DRAWER 7, Y5N ONE (17:27)
[2018-08-05] MEDS: VANCOMYCIN 1 GM PREMIX - 1 GM/200 ML BAG IVPB SCH (17:33)
[2018-08-06] MEDS ORDERED: DEXTROSE 5%-WATER - 50 ML IVPB ONE ×3 (01:46→17:24)
[2018-08-06] MEDS ORDERED: PIPERACILLIN/TAZOBACTAM 3.375 GM VIAL IVPB ONE ×3 (01:46→17:24)
[2018-08-06] MEDS: PIPERACILLIN/TAZOB 3.375 GM 3.375 GM in DEXTROSE 5%-WATER - 50 ML IVPB SCH ×3 (01:58→17:41)
[2018-08-06] MEDS: FUROSEMIDE 40 MG TABLET (FP) PO SCH (09:47)
[2018-08-06] MEDS: ASPIRIN 81 MG CHEWABLE TABLETS PO SCH (09:47)
[2018-08-06] MEDS: CALCIUM 250MG/VIT-D 125 UNITS 1 COMBO TABLET PO SCH (09:47)
[2018-08-06] MEDS: metoPROLOL SUCCINATE 25 MG TAB.SR.24H (FP) PO SCH (09:47)
[2018-08-06] MEDS: MULTIVITAMINS (DAILY MVI) TABLET (FP) PO SCH (09:47)
[2018-08-06] MEDS: NYSTATIN 100,000 UNIT/GM TOPICAL CREAM 15 GM TUBE TP SCH ×2 (09:51→21:58)
--- NOTE | 2018-08-06 11:48 | PN ---
Progress Note, Physician History of Present Illness: stable doing well no issues - Current Medication List Current Medications: Active Medications Aspirin (Asa -) 81 mg PO DAILY [facility] Last Admin: 08/06/18 09:47 Dose: 81 mg Calcium/Vitamin D (Oscal 250 Mg+D -) 1 tab PO MoWeFr@1000 [facility] Last Admin: 08/06/18 09:47 Dose: 1 tab Furosemide (Lasix -) 40 mg PO DAILY [facility] Last Admin: 08/06/18 09:47 Dose: 40 mg Piperacillin Sod/Tazobactam (Sod 3.375 gm/ Dextrose) 50 mls @ 100 mls/hr IVPB Q8H-IV [facility]; Protocol Last Admin: 08/06/18 09:46 Dose: 100 mls/hr Vancomycin HCl (Vancomycin 1 Gm Premix -) 1 gm in 200 mls @ 133.333 mls/hr IVPB DAILY@1700 [facility]; Protocol Last Admin: 08/05/18 17:33 Dose: 133.333 mls/hr Metoprolol Succinate (Toprol Xl -) 25 mg PO DAILY [facility] Last Admin: 08/06/18 09:47 Dose: 25 mg Multivitamins/Minerals/Vitamin C (Tab-A-Vit -) 1 tab PO DAILY [facility] Last Admin: 08/06/18 09:47 Dose: 1 tab Nystatin (Mycostatin Cream -) 1 applic TP BID [facility] Last Admin: 08/06/18 09:51 Dose: 1 applic - Objective Vital Signs: Vital Signs Temperature 97.7 F 08/06/18 06:00 Pulse Rate 74 08/06/18 06:00 Respiratory Rate 20 08/06/18 06:00 Blood Pressure 122/68 08/06/18 06:00 O2 Sat by Pulse Oximetry (%) 100 08/05/18 21:00 Constitutional: Yes: No Distress, Calm Cardiovascular: Yes: Regular Rate and Rhythm Respiratory: Yes: Regular, CTA Bilaterally Gastrointestinal: Yes: Normal Bowel Sounds, Soft Musculoskeletal: Yes: Other Extremities: Yes: Other Wound/Incision: Yes: Dressing Dry and Intact Neurological: Yes: Alert, Oriented Labs: CBC, BMP 07/29/18 07:00 07/29/18 07:00 INR, PTT INR 1.19 (0.83-1.09) H 07/27/18 13:28 Assessment/Plan Assessment/Plan roblem List - Problems (1) Venous stasis ulcers of both lower extremities Code(s): I83.019 - VARICOSE VEINS OF RIGHT LOWER EXTREMITY W ULCER OF UNSP SITE ; I83.029 - VARICOSE VEINS OF LEFT LOWER EXTREMITY W ULCER OF UNSP SITE (2) Renal insufficiency Code(s): N28.9 - DISORDER OF KIDNEY AND URETER, UNSPECIFIED (3) Anemia Code(s): D64.9 - ANEMIA, UNSPECIFIED (4) Congestive heart failure Code(s): I50.9 - HEART FAILURE, UNSPECIFIED (5) Idiopathic chronic venous hypertension of both lower extremities with inflammation Code(s): I87.323 - CHRONIC VENOUS HTN W INFLAMMATION OF BILATERAL LOW EXTRM (6) Lymphedema Code(s): I89.0 - LYMPHEDEMA, NOT ELSEWHERE CLASSIFIED (7) Morbid obesity Code(s): E66.01 - MORBID (SEVERE) OBESITY DUE TO EXCESS CALORIES (8) Venous insufficiency of both lower extremities Code(s): I87.2 - VENOUS INSUFFICIENCY (CHRONIC) (PERIPHERAL) (9) Venous stasis dermatitis of both lower extremities Code(s): I87.2 - VENOUS INSUFFICIENCY (CHRONIC) (PERIPHERAL) Assessment/Plan Infected LE ulcers - pseudomonas/mrsa LLE cellulitis CKD Venous insufficiency LE lymphedema CHF plan continue current mgmt continue wound care rest as per the team will change to oral abx tomorrow
[2018-08-06 15:41] LABS: HEMATOCRIT 28.6 % (35.4-49); HEMOGLOBIN 9.2 GM/dL (11.7-16.9); MCH 28.3 pg (25.7-33.7); MCHC 32.1 g/dl (32.0-35.9); MEAN CELL VOLUME 88.1 fl (80-96); MEAN PLT VOLUME 9.2 fl (7.5-11.1); PLATELET COUNT 190 K/MM3 (134-434); RBC 3.25 M/mm3 (4.00-5.60); RDW 18.3 % (11.9-15.9); WHITE BLOOD COUNT 6.1 K/mm3 (4.0-10.0)
--- NOTE | 2018-08-06 16:05 | PN ---
Progress Note, Physician History of Present Illness: stable - Current Medication List Current Medications: Active Medications Aspirin (Asa -) 81 mg PO DAILY [facility] Last Admin: 08/06/18 09:47 Dose: 81 mg Calcium/Vitamin D (Oscal 250 Mg+D -) 1 tab PO [facility]@1000 [facility] Last Admin: 08/06/18 09:47 Dose: 1 tab Furosemide (Lasix -) 40 mg PO DAILY [facility] Last Admin: 08/06/18 09:47 Dose: 40 mg Piperacillin Sod/Tazobactam (Sod 3.375 gm/ Dextrose) 50 mls @ 100 mls/hr IVPB Q8H-IV [facility]; Protocol Last Admin: 08/06/18 09:46 Dose: 100 mls/hr Vancomycin HCl (Vancomycin 1 Gm Premix -) 1 gm in 200 mls @ 133.333 mls/hr IVPB DAILY@1700 [facility]; Protocol Last Admin: 08/05/18 17:33 Dose: 133.333 mls/hr Metoprolol Succinate (Toprol Xl -) 25 mg PO DAILY [facility] Last Admin: 08/06/18 09:47 Dose: 25 mg Multivitamins/Minerals/Vitamin C (Tab-A-Vit -) 1 tab PO DAILY [facility] Last Admin: 08/06/18 09:47 Dose: 1 tab Nystatin (Mycostatin Cream -) 1 applic TP BID [facility] Last Admin: 08/06/18 09:51 Dose: 1 applic - Objective Vital Signs: Vital Signs Temperature 97.6 F 08/06/18 14:36 Pulse Rate 63 08/06/18 14:36 Respiratory Rate 18 08/06/18 14:36 Blood Pressure 118/74 08/06/18 14:36 O2 Sat by Pulse Oximetry (%) 97 08/06/18 09:00 Constitutional: Yes: No Distress HENT: Yes: Atraumatic Neck: Yes: Supple Cardiovascular: Yes: Regular Rate and Rhythm Respiratory: Yes: CTA Bilaterally Gastrointestinal: Yes: Normal Bowel Sounds Extremities: Yes: Other (cellulitis b/l porfirio) Edema: No Neurological: Yes: Alert, Oriented Labs: CBC, BMP 08/06/18 15:20 INR, PTT INR 1.19 (0.83-1.09) H 07/27/18 13:28 Problem List - Problems (1) Venous stasis ulcers of both lower extremities Code(s): I83.019 - VARICOSE VEINS OF RIGHT LOWER EXTREMITY W ULCER OF UNSP SITE ; I83.029 - VARICOSE VEINS OF LEFT LOWER EXTREMITY W ULCER OF UNSP SITE (2) Diastolic CHF Assessment/Plan: continue home meds Code(s): I50.30 - UNSPECIFIED DIASTOLIC (CONGESTIVE) HEART FAILURE (3) Venous insufficiency Code(s): I87.2 - VENOUS INSUFFICIENCY (CHRONIC) (PERIPHERAL) (4) Venous ulcer of right leg Assessment/Plan: on iv abx woundcare on iv abx elevate legs Code(s): I83.019 - VARICOSE VEINS OF RIGHT LOWER EXTREMITY W ULCER OF UNSP SITE ; L97.919 - NON-PRS CHRONIC ULC UNSP PRT OF R LOW LEG W UNSP SEVERITY (5) Venous ulcer of left lower extremity without varicose veins Code(s): I87.2 - VENOUS INSUFFICIENCY (CHRONIC) (PERIPHERAL); L97.929 - NON-PRS CHRONIC ULC UNSP PRT OF L LOW LEG W UNSP SEVERITY (6) Lymphedema Assessment/Plan: elevate legs Code(s): I89.0 - LYMPHEDEMA, NOT ELSEWHERE CLASSIFIED
[2018-08-06 16:13] LABS: ANION GAP 8 MMOL/L (8-16); BLOOD UREA NITROGEN 48 mg/dL (7-18); CALCIUM 8.4 mg/dL (8.5-10.1); CHLORIDE 102 mmol/L (98-107); CO2 30 mmol/L (21-32); CREATININE 2.6 mg/dL (0.55-1.3); GLUCOSE,RANDOM 72 mg/dL (74-106); POTASSIUM 4.7 mmol/L (3.5-5.1); SODIUM 140 mmol/L (136-145)
[2018-08-06] MEDS: VANCOMYCIN 1 GM PREMIX - 1 GM/200 ML BAG IVPB SCH (17:41)
[2018-08-07] MEDS ORDERED: DEXTROSE 5%-WATER - 50 ML IVPB ONE ×2 (00:58→10:11)
[2018-08-07] MEDS ORDERED: PIPERACILLIN/TAZOBACTAM 3.375 GM VIAL IVPB ONE ×2 (00:58→10:11)
[2018-08-07] MEDS: PIPERACILLIN/TAZOB 3.375 GM 3.375 GM in DEXTROSE 5%-WATER - 50 ML IVPB SCH ×2 (01:28→10:25)
[2018-08-07] MEDS: MULTIVITAMINS (DAILY MVI) TABLET (FP) PO SCH (10:25)
[2018-08-07] MEDS: ASPIRIN 81 MG CHEWABLE TABLETS PO SCH (10:25)
[2018-08-07] MEDS: FUROSEMIDE 40 MG TABLET (FP) PO SCH (10:25)
[2018-08-07] MEDS: metoPROLOL SUCCINATE 25 MG TAB.SR.24H (FP) PO SCH (10:25)
[2018-08-07] MEDS: NYSTATIN 100,000 UNIT/GM TOPICAL CREAM 15 GM TUBE TP SCH (10:26)
--- NOTE | 2018-08-07 11:46 | PN ---
Progress Note, Physician History of Present Illness: stable doing well legs and wound checked yesterday wound has become dry no discharge noted was bleeding a bit as he hit his leg - Current Medication List Current Medications: Active Medications Aspirin (Asa -) 81 mg PO DAILY [facility] Last Admin: 08/07/18 10:25 Dose: 81 mg Calcium/Vitamin D (Oscal 250 Mg+D -) 1 tab PO MoWeFr@1000 [facility] Last Admin: 08/06/18 09:47 Dose: 1 tab Furosemide (Lasix -) 40 mg PO DAILY [facility] Last Admin: 08/07/18 10:25 Dose: 40 mg Metoprolol Succinate (Toprol Xl -) 25 mg PO DAILY [facility] Last Admin: 08/07/18 10:25 Dose: 25 mg Multivitamins/Minerals/Vitamin C (Tab-A-Vit -) 1 tab PO DAILY [facility] Last Admin: 08/07/18 10:25 Dose: 1 tab Nystatin (Mycostatin Cream -) 1 applic TP BID [facility] Last Admin: 08/07/18 10:26 Dose: 1 applic - Objective Vital Signs: Vital Signs Temperature 98.4 F 08/07/18 06:00 Pulse Rate 70 08/07/18 06:00 Respiratory Rate 20 08/07/18 06:00 Blood Pressure 122/68 08/07/18 06:00 O2 Sat by Pulse Oximetry (%) 97 08/06/18 21:00 Constitutional: Yes: No Distress, Calm Cardiovascular: Yes: Regular Rate and Rhythm Respiratory: Yes: Regular, CTA Bilaterally Gastrointestinal: Yes: Normal Bowel Sounds, Soft Musculoskeletal: Yes: WNL Extremities: Yes: Other Wound/Incision: Yes: Dressing Dry and Intact Neurological: Yes: Alert, Oriented Psychiatric: Yes: Alert, Oriented Labs: CBC, BMP 08/06/18 15:20 08/06/18 15:00 INR, PTT INR 1.19 (0.83-1.09) H 07/27/18 13:28 Assessment/Plan Assessment/Plan roblem List - Problems (1) Venous stasis ulcers of both lower extremities Code(s): I83.019 - VARICOSE VEINS OF RIGHT LOWER EXTREMITY W ULCER OF UNSP SITE ; I83.029 - VARICOSE VEINS OF LEFT LOWER EXTREMITY W ULCER OF UNSP SITE (2) Renal insufficiency Code(s): N28.9 - DISORDER OF KIDNEY AND URETER, UNSPECIFIED (3) Anemia Code(s): D64.9 - ANEMIA, UNSPECIFIED (4) Congestive heart failure Code(s): I50.9 - HEART FAILURE, UNSPECIFIED (5) Idiopathic chronic venous hypertension of both lower extremities with inflammation Code(s): I87.323 - CHRONIC VENOUS HTN W INFLAMMATION OF BILATERAL LOW EXTRM (6) Lymphedema Code(s): I89.0 - LYMPHEDEMA, NOT ELSEWHERE CLASSIFIED (7) Morbid obesity Code(s): E66.01 - MORBID (SEVERE) OBESITY DUE TO EXCESS CALORIES (8) Venous insufficiency of both lower extremities Code(s): I87.2 - VENOUS INSUFFICIENCY (CHRONIC) (PERIPHERAL) (9) Venous stasis dermatitis of both lower extremities Code(s): I87.2 - VENOUS INSUFFICIENCY (CHRONIC) (PERIPHERAL) Assessment/Plan Infected LE ulcers - pseudomonas/mrsa LLE cellulitis CKD Venous insufficiency LE lymphedema CHF plan will change to oral doxy to give it for one more week follow up in wound care doxy 100 mg po bid
--- NOTE | 2018-08-07 12:41 | PN ---
Progress Note, Physician - Current Medication List Current Medications: Active Medications Aspirin (Asa -) 81 mg PO DAILY [facility] Last Admin: 08/07/18 10:25 Dose: 81 mg Calcium/Vitamin D (Oscal 250 Mg+D -) 1 tab PO MoWeFr@1000 [facility] Last Admin: 08/06/18 09:47 Dose: 1 tab Furosemide (Lasix -) 40 mg PO DAILY [facility] Last Admin: 08/07/18 10:25 Dose: 40 mg Metoprolol Succinate (Toprol Xl -) 25 mg PO DAILY [facility] Last Admin: 08/07/18 10:25 Dose: 25 mg Multivitamins/Minerals/Vitamin C (Tab-A-Vit -) 1 tab PO DAILY [facility] Last Admin: 08/07/18 10:25 Dose: 1 tab Nystatin (Mycostatin Cream -) 1 applic TP BID [facility] Last Admin: 08/07/18 10:26 Dose: 1 applic - Objective Vital Signs: Vital Signs Temperature 97.9 F 08/07/18 10:00 Pulse Rate 64 08/07/18 10:00 Respiratory Rate 20 08/07/18 10:00 Blood Pressure 132/79 08/07/18 10:00 O2 Sat by Pulse Oximetry (%) 97 08/07/18 09:00 Labs: CBC, BMP 08/06/18 15:20 08/06/18 15:00 INR, PTT INR 1.19 (0.83-1.09) H 07/27/18 13:28 Problem List - Problems (1) Venous stasis ulcers of both lower extremities Code(s): I83.019 - VARICOSE VEINS OF RIGHT LOWER EXTREMITY W ULCER OF UNSP SITE ; I83.029 - VARICOSE VEINS OF LEFT LOWER EXTREMITY W ULCER OF UNSP SITE (2) Diastolic CHF Code(s): I50.30 - UNSPECIFIED DIASTOLIC (CONGESTIVE) HEART FAILURE (3) Venous insufficiency Code(s): I87.2 - VENOUS INSUFFICIENCY (CHRONIC) (PERIPHERAL) (4) Venous ulcer of right leg Code(s): I83.019 - VARICOSE VEINS OF RIGHT LOWER EXTREMITY W ULCER OF UNSP SITE ; L97.919 - NON-PRS CHRONIC ULC UNSP PRT OF R LOW LEG W UNSP SEVERITY (5) Venous ulcer of left lower extremity without varicose veins Code(s): I87.2 - VENOUS INSUFFICIENCY (CHRONIC) (PERIPHERAL); L97.929 - NON-PRS CHRONIC ULC UNSP PRT OF L LOW LEG W UNSP SEVERITY (6) Lymphedema Code(s): I89.0 - LYMPHEDEMA, NOT ELSEWHERE CLASSIFIED
--- NOTE | 2018-08-07 12:45 | DS ---
Physical Examination Vital Signs: Vital Signs Temperature 97.9 F 08/07/18 10:00 Pulse Rate 64 08/07/18 10:00 Respiratory Rate 20 08/07/18 10:00 Blood Pressure 132/79 08/07/18 10:00 O2 Sat by Pulse Oximetry (%) 97 08/07/18 09:00 Constitutional: Yes: No Distress HENT: Yes: Atraumatic Neck: Yes: Supple Cardiovascular: Yes: Regular Rate and Rhythm Respiratory: Yes: CTA Bilaterally Gastrointestinal: Yes: Normal Bowel Sounds Extremities: Yes: Other (cellulitis b/l porfirio) Edema: Yes Edema: LLE: 3+, RLE: 3+ Neurological: Yes: Alert, Oriented Labs: CBC, BMP 08/06/18 15:20 08/06/18 15:00 Discharge Summary Reason For Visit: VENOUS STASIS ULCERS OF BOTH LOWER EXTREMITIES Current Active Problems Venous ulcer of left lower extremity without varicose veins (Acute) Venous ulcer of right leg (Acute) Venous stasis ulcers of both lower extremities (Chronic) Condition: Stable - Instructions - Home Medications Comprehensive Discharge Medication List: Ambulatory Orders Furosemide [Lasix] 40 mg PO DAILY 06/24/16 Allopurinol 300 mg PO DAILY 06/07/18 Folic Acid 1 mg PO DAILY 06/07/18 Multivitamin 1 tab PO DAILY 06/07/18 Oscal 250 mg+D - 1 tab PO MOWEFR 06/07/18 Aspirin [ASA -] 81 mg PO DAILY #30 tab.chew 06/23/18 Metoprolol Succinate [Toprol XL -] 25 mg PO DAILY #30 tab.sr.24h 06/23/18 Doxycycline Hyclate 100 mg PO BID #14 tablet 08/07/18 [facility]
[2018-08-07 17:34] VITALS: BP 93/58; PULSE 71; TEMP 98
== END 2018-08-07 19:20 | disposition home or self-care (01) | DRG 300 ==
LOC: JER 12:19 → JERBED 14:58 → J8W 07-28 12:31
PROVIDERS: ADMIT Internal Medicine; ATTEND Internal Medicine
DX: I83.019 Varicose veins of right lower extremity with ulcer of unspecified site (principal); L02.419 Cutaneous abscess of limb, unspecified; L03.119 Cellulitis of unspecified part of limb; I13.0 Hypertensive heart and chronic kidney disease with heart failure and stage 1 through stage 4 chronic kidney disease, or unspecified chronic kidney disease; I50.30 Unspecified diastolic (congestive) heart failure; L03.116 Cellulitis of left lower limb; L03.115 Cellulitis of right lower limb; I83.029 Varicose veins of left lower extremity with ulcer of unspecified site; D64.9 Anemia, unspecified; I89.0 Lymphedema, not elsewhere classified; I87.2 Venous insufficiency (chronic) (peripheral); Z68.33 Body mass index [BMI] 33.0-33.9, adult; I27.20 Pulmonary hypertension, unspecified; N18.9 Chronic kidney disease, unspecified; R21 Rash and other nonspecific skin eruption; E66.01 Morbid (severe) obesity due to excess calories
CPT/HCPCS: 36415; 71045-TC-FY; 80048; 80053; 83605; 84484; 85025; 85027; 85610; 85730; 87040; 93005; 93010; 99283-25; G0480; J1644

== ENCOUNTER 2018-11-21 08:21 | Inpatient (IN) | payer BC, OTHER ==
[2018-11-21 10:34] LABS: ALBUMIN 2.4 g/dl (3.4-5.0); BILIRUBIN,TOTAL 0.7 mg/dL (0.2-1); CALCIUM 7.6 mg/dL (8.5-10.1); CREATININE 2.1 mg/dL (0.55-1.3); POTASSIUM 4.3 mmol/L (3.5-5.1); TOT PROT 7.8 g/dl (6.4-8.2)
[2018-11-21 10:56] LABS: HEMATOCRIT 24.2 % (35.4-49); HEMOGLOBIN 7.7 GM/dL (11.7-16.9); MCH 26.5 pg (25.7-33.7); MCHC 31.7 g/dl (32.0-35.9); MEAN CELL VOLUME 83.6 fl (80-96); MEAN PLT VOLUME 10.5 fl (7.5-11.1); PLATELET COUNT 256 K/MM3 (134-434); RBC 2.89 M/mm3 (4.00-5.60); RDW 17.3 % (11.9-15.9)
[2018-11-21 12:46] LABS: INR 1.36 (0.83-1.09); PROTHROMBIN TIME (PATIENT) 16.1 SEC (9.7-13.0)
[2018-11-21 12:57] LABS: WHITE BLOOD COUNT 8.4 K/mm3 (4.0-10.0)
[2018-11-21 13:10] LABS: PLATELET ESTIMATE ADEQUATE
[2018-11-21] MEDS ORDERED: PIPERACILLIN/TAZOB 4.5 GM 4.5 GM in DEXTROSE 5%-WATER 100 ML IVPB ONE (13:13)
[2018-11-21] MEDS ORDERED: VANCOMYCIN HCL 1,500 MG in DEXTROSE 5%-WATER - 500 ML IVPB ONE (13:13)
[2018-11-21] MEDS ORDERED: PIPERACILLIN/TAZOB 4.5 GM 4.5 GM/100 ML BAG IVPB ONE ×2 (13:16→13:17)
--- NOTE | 2018-11-21 13:16 | CON.ID ---
Consult - Past Medical History Cardio/Vascular: Yes: CHF, HTN, Pulmonary Hypertension, Other Renal/: Yes: Renal Inusuff Musculoskeletal: Yes: Other Additional Medical History: chronic lymphedema sees Dr Eric at the wound clinic Admitted for increasing LE EDEMA - Alcohol/Substance Use Hx Alcohol Use: No History of Substance Use: reports: None - Smoking History Smoking history: Never smoked Have you smoked in the past 12 months: No Aproximately how many cigarettes per day: 0 - Social History Usual Living Arrangement: With Parent History of Recent Travel: No Home Medications - Allergies Allergies/Adverse Reactions: Allergies Allergy/AdvReac Type Severity Reaction Status Date / Time Egg Derived Allergy Unknown Verified 11/21/18 08:28 [place] And Derivatives Allergy Verified 11/21/18 08:28 lactose AdvReac Verified 11/21/18 08:28 - Home Medications Home Medications: Ambulatory Orders Furosemide [Lasix] 40 mg PO DAILY 06/24/16 Allopurinol 300 mg PO DAILY 06/07/18 Folic Acid 1 mg PO DAILY 06/07/18 Multivitamin 1 tab PO DAILY 06/07/18 Oscal 250 mg+D - 1 tab PO MOWEFR 06/07/18 Aspirin [ASA -] 81 mg PO DAILY #30 tab.chew 06/23/18 Metoprolol Succinate [Toprol XL -] 25 mg PO DAILY #30 tab.sr.24h 06/23/18 Physical Exam Vital Signs: Vital Signs Temperature 97.8 F 11/21/18 08:23 Pulse Rate 80 11/21/18 11:06 Respiratory Rate 18 11/21/18 11:06 Blood Pressure 109/68 11/21/18 11:06 O2 Sat by Pulse Oximetry (%) 97 11/21/18 11:06 Labs: CBC, BMP 11/21/18 09:30 11/21/18 09:30
[2018-11-21] MEDS ORDERED: PIPERACILLIN/TAZOB 2.25 GM 2.25 GM in DEXTROSE 5%-WATER - 50 ML IVPB ONE (13:24)
[2018-11-21] MEDS ORDERED: PIPERACILLIN/TAZOB 2.25 GM 2.25 GM/50 ML BAG IVPB ONE ×2 (13:29→21:15)
--- NOTE | 2018-11-21 14:28 | PDOC ---
Documentation entered by Lizbeth Whitaker SCRIBE, acting as scribe for Leland Agrawal MD. Leland Agrawal MD: This documentation has been prepared by the valentineibeSherman Natalie, SCRIBE, under my direction and personally reviewed by me in its entirety. I confirm that the documentation accurately reflects all work, treatment, procedures, and medical decision making performed by me. History of Present Illness - General Chief Complaint: Wound Stated Complaint: WOUND CARE REFFERAL Time Seen by Provider: 11/21/18 09:06 History Source: Patient Exam Limitations: No Limitations - History of Present Illness Initial Comments: 11/21/18 09:56 The patient is a 58-year-old male, with a past medical history of CHF, HTN, chronic venous stasis ulcers, who presents to the ED for evaluation of B/L lower extremity ulcers. The patient follows with [facility] and has a visiting nurse who comes to his home 3x a week. The visiting nurse called the [facility] yesterday to inform them that the patients wounds appeared worse and they advised the patient to report to the ED for further evaluation. The patient denies any fever, chills, nausea, vomiting, diarrhea, constipation or abdominal pain. Denies any chest pain, palpitations, or shortness of breath. Denies any urinary symptoms. Denies any weakness, dizziness, lightheadedness, or changes in strength or sensation. Allergies: Egg derived, citrus and derivatives, and lactose. PCP: Sees someone at [facility] Vascular: Dr. Pepito Eric Past History - Past Medical History Allergies/Adverse Reactions: Allergies Allergy/AdvReac Type Severity Reaction Status Date / Time Egg Derived Allergy Unknown Verified 11/21/18 08:28 [place] And Derivatives Allergy Verified 11/21/18 08:28 lactose AdvReac Verified 11/21/18 08:28 Home Medications: Ambulatory Orders Furosemide [Lasix] 40 mg PO DAILY 06/24/16 Allopurinol 300 mg PO DAILY 06/07/18 Folic Acid 1 mg PO DAILY 06/07/18 Multivitamin 1 tab PO DAILY 06/07/18 Oscal 250 mg+D - 1 tab PO MOWEFR 06/07/18 Aspirin [ASA -] 81 mg PO DAILY #30 tab.chew 06/23/18 Metoprolol Succinate [Toprol XL -] 25 mg PO DAILY #30 tab.sr.24h 06/23/18 Anemia: No Asthma: No Cancer: No Cardiac Disorders: No CVA: No COPD: No CHF: Yes DVT: No Dementia: No Diabetes: No GI Disorders: No Disorders: No HTN: Yes Hypercholesterolemia: No Liver Disease: No Seizures: No Thyroid Disease: No - Surgical History Abdominal Surgery: No Appendectomy: Yes Cardiac Surgery: No Cholecystectomy: No Lung Surgery: No Neurologic Surgery: No Orthopedic Surgery: No - Suicide/Smoking/Psychosocial Hx Smoking Status: No Smoking History: Never smoked Have you smoked in the past 12 months: No Number of Cigarettes Smoked Daily: 0 Hx Alcohol Use: No Drug/Substance Use Hx: No Substance Use Type: None Hx Substance Use Treatment: No Review of Systems - Review of Systems Able to Perform ROS?: Yes Comments:: 11/21/18 10:00 CONSTITUTIONAL: No fever, no chills, no fatigue EYES: No visual changes ENT: No ear pain, no sore throat CARDIOVASCULAR: No chest pain, no palpitations RESPIRATORY: No cough, no SOB GI: No abdominal pain, no nausea, no vomiting, no constipation, no diarrhea GENITOURINARY: No dysuria, no frequency, no hematuria MUSKULOSKELETAL: No back pain, no joint pain, no myalgias SKIN: (+)B/L LE venous stasis ulcers. NEURO: No headache *Physical Exam - Vital Signs Last Vital Signs Temp Pulse Resp BP Pulse Ox 97.8 F 125 H 16 145/113 H 97 11/21/18 08:23 11/21/18 08:23 11/21/18 08:23 11/21/18 08:23 11/21/18 08:23 - Physical Exam Comments: 11/21/18 10:00 CONSTITUTIONAL: Well-appearing; well-nourished; in no apparent distress HEAD: Normocephalic; atraumatic EYES: PERRL; EOM intact ENMT: External appears normal; normal oropharynx NECK: Supple; non-tender; no cervical lymphadenopathy CARD: Normal S1, S2; no murmurs, rubs, or gallops RESP: Normal chest excursion with respiration; breath sounds clear and equal bilaterally; no wheezes, rhonchi, or rales ABD: Soft, non-distended; non-tender; no palpable organomegaly, no palpable hernias EXT: +Extensive lymphedema with cutaneous lichenification bilaterally with numerous nonhealing wounds bilaterally, with foul smelling green tinged discharge SKIN: Warm, to touch to LEs NEURO: No focal neurological deficiencies. Heart Score/ECG Review - ECG Intrepretation Comment:: 11/21/18 09:57 EKG was reviewed by Dr. Agrawal at 9:35. Impression: Atrial fibrillation - 96 bpm. Left axis deviation. Cannot rule out Anterior infarct, age undetermined. ST & T wave abnormality, consider lateral ischemia. Prolonged QT. Abnormal ECG. ED Treatment Course - LABORATORY CBC & Chemistry Diagram: 11/21/18 09:30 11/21/18 09:30 - ADDITIONAL ORDERS Additional order review: Laboratory Results 11/21/18 11/21/18 09:30 09:30 PT with INR 16.10 H INR 1.36 H Sodium 141 Potassium 4.3 Chloride 110 H Carbon Dioxide 28 Anion Gap 4 L BUN 37.0 H Creatinine 2.1 H Est GFR (CKD-EPI)AfAm 38.49 Est GFR (CKD-EPI)NonAf 33.21 Random Glucose 92 Calcium 7.6 L Total Bilirubin 0.7 AST 26 ALT 12 L Alkaline Phosphatase 134 H C-Reactive Protein 5.3 H Total Protein 7.8 Albumin 2.4 L 11/21/18 09:30 RBC 2.89 L MCV 83.6 MCHC 31.7 L RDW 17.3 H MPV 10.5 D Neutrophils % No Result Required. Lymphocytes % No Result Required. - Medications Given in the ED: ED Medications Discontinued Medications Generic Name Dose Route Start Last Admin Trade Name Freq PRN Reason Stop Dose Admin Piperacillin Sod/Tazobactam 100 mls @ 200 mls/hr 11/21/18 13:13 11/21/18 13: 28 Sod 4.5 gm/ Dextrose IVPB 11/21/18 13:42 Not Given ONCE ONE Protocol Medical Decision Making - Medical Decision Making 11/21/18 14:27 Patient is 58-year-old male with history of bilateral lymphedema and history of nonhealing wounds who presents with signs and symptoms of acute wound infection bilaterally. Patient is initially hypertensive but improved without intervention. EKG reveals atrial fibrillation without evidence of acute ischemia. Patient seen and evaluated by Dr. Guo of infectious disease who recommends inpatient admission for IV antibiotics covering pseudomonas and MRSA. Will admit. *DC/Admit/Observation/Transfer Diagnosis at time of Disposition: Wound infection, Lymphedema of both lower extremities - Discharge Dispostion Condition at time of disposition: Fair Decision to Admit order: Yes - Referrals - Patient Instructions - Post Discharge Activity
--- NOTE | 2018-11-21 19:35 | HP ---
Admitting History and Physical - Primary Care Physician PCP: Tremaine Borrego - Admission History of Present Illness: 58-year-old male, with a past medical history of CHF, HTN, chronic venous stasis ulcers, who presents to the ED for evaluation of B/L lower extremity ulcers. The patient [facility] and has a visiting nurse who comes to his home 3x a week. The visiting nurse called the [facility] yesterday to inform them that the patients wounds appeared worse and they advised the patient to report to the ED for further evaluation. - Past Medical History Cardiovascular: Yes: CHF, HTN, Pulmonary Hypertension, Other Renal/: Yes: Renal Inusuff Musculoskeletal: Yes: Other - Smoking History Smoking history: Never smoked Have you smoked in the past 12 months: No Aproximately how many cigarettes per day: 0 - Alcohol/Substance Use Hx Alcohol Use: No History of Substance Use: reports: None - Social History History of Recent Travel: No Home Medications - Allergies Allergies/Adverse Reactions: Allergies Allergy/AdvReac Type Severity Reaction Status Date / Time Egg Derived Allergy Unknown Verified 11/21/18 08:28 [place] And Derivatives Allergy Verified 11/21/18 08:28 lactose AdvReac Verified 11/21/18 08:28 - Home Medications Home Medications: Ambulatory Orders Furosemide [Lasix] 40 mg PO DAILY 06/24/16 Allopurinol 300 mg PO DAILY 06/07/18 Folic Acid 1 mg PO DAILY 06/07/18 Multivitamin 1 tab PO DAILY 06/07/18 Oscal 250 mg+D - 1 tab PO MOWEFR 06/07/18 Aspirin [ASA -] 81 mg PO DAILY #30 tab.chew 06/23/18 Metoprolol Succinate [Toprol XL -] 25 mg PO DAILY #30 tab.sr.24h 06/23/18 Physical Examination Vital Signs: Vital Signs Temperature 98.0 F 11/21/18 16:42 Pulse Rate 85 11/21/18 16:42 Respiratory Rate 23 H 11/21/18 16:42 Blood Pressure 108/61 11/21/18 16:42 O2 Sat by Pulse Oximetry (%) 99 11/21/18 16:42 Constitutional: Yes: No Distress HENT: Yes: Atraumatic Neck: Yes: Supple Cardiovascular: Yes: Regular Rate and Rhythm Respiratory: Yes: CTA Bilaterally Gastrointestinal: Yes: Normal Bowel Sounds Extremities: Yes: Other (b/l porfirio cellultis) Edema: Yes Neurological: Yes: Alert, Oriented Labs: CBC, BMP 11/21/18 09:30 11/21/18 09:30 Problem List - Problems (1) Wound infection Assessment/Plan: iv abx woud care dressing change Code(s): T14.8XXA - OTHER INJURY OF UNSPECIFIED BODY REGION, INITIAL ENCOUNTER; L08.9 - LOCAL INFECTION OF THE SKIN AND SUBCUTANEOUS TISSUE, UNSP (2) Lymphedema of both lower extremities Code(s): I89.0 - LYMPHEDEMA, NOT ELSEWHERE CLASSIFIED (3) Diastolic CHF Assessment/Plan: continue home meds Code(s): I50.30 - UNSPECIFIED DIASTOLIC (CONGESTIVE) HEART FAILURE (4) Cellulitis and abscess of leg Assessment/Plan: iv abx wound care id consult Code(s): L02.419 - CUTANEOUS ABSCESS OF LIMB, UNSPECIFIED; L03.119 - CELLULITIS OF UNSPECIFIED PART OF LIMB Assessment/Plan Laboratory Tests 11/21/18 11/21/18 11/21/18 09:30 09:30 09:30 WBC 8.4 RBC 2.89 L Hgb 7.7 L Hct 24.2 L D MCV 83.6 MCH 26.5 MCHC 31.7 L RDW 17.3 H Plt Count 256 D MPV 10.5 D Absolute Neuts (auto) 5.8 Total Counted 100 Neutrophils % No Result Required. Neutrophils % (Manual) 70.0 Band Neutrophils % 1.0 Lymphocytes % No Result Required. Lymphocytes % (Manual) 16.0 Monocytes % (Manual) 9 Eosinophils % (Manual) 3.0 Nucleated RBC % 0 Platelet Estimate Adequate ESR 71 H PT with INR INR Sodium 141 Potassium 4.3 Chloride 110 H Carbon Dioxide 28 Anion Gap 4 L BUN 37.0 H Creatinine 2.1 H Est GFR (CKD-EPI)AfAm 38.49 Est GFR (CKD-EPI)NonAf 33.21 Random Glucose 92 Calcium 7.6 L Total Bilirubin 0.7 AST 26 ALT 12 L Alkaline Phosphatase 134 H C-Reactive Protein 5.3 H Total Protein 7.8 Albumin 2.4 L 11/21/18 09:30 WBC RBC Hgb Hct MCV MCH MCHC RDW Plt Count MPV Absolute Neuts (auto) Total Counted Neutrophils % Neutrophils % (Manual) Band Neutrophils % Lymphocytes % Lymphocytes % (Manual) Monocytes % (Manual) Eosinophils % (Manual) Nucleated RBC % Platelet Estimate ESR PT with INR 16.10 H INR 1.36 H Sodium Potassium Chloride Carbon Dioxide Anion Gap BUN Creatinine Est GFR (CKD-EPI)AfAm Est GFR (CKD-EPI)NonAf Random Glucose Calcium Total Bilirubin AST ALT Alkaline Phosphatase C-Reactive Protein Total Protein Albumin Active Medications Generic Name Dose Route Start Last Admin Trade Name Aliyah PRN Reason Stop Dose Admin Piperacillin Sod/Tazobactam 50 mls @ 100 mls/hr 11/21/18 21:00 Sod 2.25 gm/ Dextrose IVPB Q6H-IV MICHELLE Protocol Active Medications Generic Name Dose Route Start Last Admin Trade Name Aliyah PRN Reason Stop Dose Admin Allopurinol 300 mg 11/22/18 10:00 11/22/18 10:56 Zyloprim - PO 300 mg DAILY MICHELLE Administration Aspirin 81 mg 11/22/18 10:00 11/22/18 10:56 Asa - PO 81 mg DAILY MICHELLE Administration Calcium/Vitamin D 1 tab 11/22/18 10:00 11/22/18 10:59 Oscal 250 Mg+D - PO 1 tab MOWEFR MICHELLE Administration Folic Acid 1 mg 11/22/18 10:00 11/22/18 10:56 Folic Acid - PO 1 mg DAILY MICHELLE Administration Furosemide 40 mg 11/22/18 10:00 11/22/18 10:56 Lasix - PO 40 mg DAILY MICHELLE Administration Heparin Sodium (Porcine) 5,000 unit 11/21/18 22:00 11/22/18 10:56 Heparin - SQ 5,000 unit BID MICHELLE Administration Piperacillin Sod/Tazobactam 50 mls @ 100 mls/hr 11/21/18 21:00 11/22/18 14:55 Sod 2.25 gm/ Dextrose IVPB 100 mls/hr Q6H-IV MICHELLE Administration Protocol Metoprolol Succinate 25 mg 11/22/18 10:00 11/22/18 10:56 Toprol Xl - PO 25 mg DAILY MICHELLE Administration Multivitamins/Minerals/Vitamin C 1 tab 11/22/18 10:00 11/22/18 10:56 Tab-A-Vit - PO 1 tab DAILY MICHELLE Administration
[2018-11-21] MEDS: PIPERACILLIN/TAZOB 2.25 GM 2.25 GM in DEXTROSE 5%-WATER - 50 ML IVPB SCH (21:27)
[2018-11-21] MEDS ORDERED: HEPARIN NA (PORCINE) 5,000 UNITS/ML 1ML VIAL ONE (22:21)
[2018-11-21] MEDS: HEPARIN NA (PORCINE) 5,000 UNITS/ML 1ML VIAL SQ SCH (22:34)
[2018-11-22] MEDS ORDERED: DEXTROSE 5%-WATER - 50 ML IVPB ONE ×4 (02:16→21:30)
[2018-11-22] MEDS ORDERED: PIPERACILLIN/TAZOBACTAM 2.25 GM VIAL IVPB ONE ×4 (02:16→21:30)
[2018-11-22] MEDS: PIPERACILLIN/TAZOB 2.25 GM 2.25 GM in DEXTROSE 5%-WATER - 50 ML IVPB SCH ×4 (02:43→21:53)
[2018-11-22 08:14] LABS: ALBUMIN 2.2 g/dl (3.4-5.0); BLOOD UREA NITROGEN 32.7 mg/dL (7-18); CALCIUM 7.7 mg/dL (8.5-10.1); POTASSIUM 3.8 mmol/L (3.5-5.1); TOT PROT 7.3 g/dl (6.4-8.2)
[2018-11-22 08:17] LABS: BASO % 0.9 % (0-2.0); EOS % 2.7 % (0-4.5); HEMATOCRIT 25.5 % (35.4-49); HEMOGLOBIN 8.1 GM/dL (11.7-16.9); LYMPH % 9.2 % (8-40); MCH 26.5 pg (25.7-33.7); MCHC 31.8 g/dl (32.0-35.9); MEAN CELL VOLUME 83.4 fl (80-96); MEAN PLT VOLUME 9.4 fl (7.5-11.1); MONO % 10.6 % (3.8-10.2); NEUT % 76.6 % (42.8-82.8); PLATELET COUNT 218 K/MM3 (134-434); RBC 3.06 M/mm3 (4.00-5.60); RDW 17.4 % (11.9-15.9); WHITE BLOOD COUNT 6.1 K/mm3 (4.0-10.0)
--- NOTE | 2018-11-22 08:23 | PN ---
Progress Note, Physician History of Present Illness: patient c/o of headache says also his back is hurting - Current Medication List Current Medications: Active Medications Allopurinol (Zyloprim -) 300 mg PO DAILY [facility] Aspirin (Asa -) 81 mg PO DAILY [facility] Calcium/Vitamin D (Oscal 250 Mg+D -) 1 tab PO MOWEFR MICHELLE Folic Acid (Folic Acid -) 1 mg PO DAILY [facility] Furosemide (Lasix -) 40 mg PO DAILY [facility] Heparin Sodium (Porcine) (Heparin -) 5,000 unit SQ BID MICHELLE Last Admin: 11/21/18 22:34 Dose: 5,000 unit Piperacillin Sod/Tazobactam (Sod 2.25 gm/ Dextrose) 50 mls @ 100 mls/hr IVPB Q6H-IV MICHELLE; Protocol Last Admin: 11/22/18 02:43 Dose: 100 mls/hr Metoprolol Succinate (Toprol Xl -) 25 mg PO DAILY [facility] Multivitamins/Minerals/Vitamin C (Tab-A-Vit -) 1 tab PO DAILY [facility] - Objective Vital Signs: Vital Signs Temperature 99.6 F 11/22/18 07:31 Pulse Rate 80 11/22/18 07:31 Respiratory Rate 20 11/22/18 07:31 Blood Pressure 110/76 11/22/18 07:31 O2 Sat by Pulse Oximetry (%) 93 L 11/22/18 00:39 Constitutional: Yes: Calm, Mild Distress Cardiovascular: Yes: Regular Rate and Rhythm Respiratory: Yes: Regular, CTA Bilaterally Gastrointestinal: Yes: Normal Bowel Sounds, Soft Musculoskeletal: Yes: WNL Extremities: Yes: Other (foul smelling wounds) Neurological: Yes: Alert, Oriented Psychiatric: Yes: Alert, Oriented Labs: CBC, BMP 11/22/18 06:35 INR, PTT INR 1.36 (0.83-1.09) H 11/21/18 09:30 Assessment/Plan Problem List - Problems (1) Wound infection Code(s): T14.8XXA - OTHER INJURY OF UNSPECIFIED BODY REGION, INITIAL ENCOUNTER; L08.9 - LOCAL INFECTION OF THE SKIN AND SUBCUTANEOUS TISSUE, UNSP (2) Lymphedema of both lower extremities Code(s): I89.0 - LYMPHEDEMA, NOT ELSEWHERE CLASSIFIED (3) Diastolic CHF Code(s): I50.30 - UNSPECIFIED DIASTOLIC (CONGESTIVE) HEART FAILURE (4) Cellulitis and abscess of leg Code(s): L02.419 - CUTANEOUS ABSCESS OF LIMB, UNSPECIFIED; L03.119 - CELLULITIS OF UNSPECIFIED PART OF LIMB plan patient got vanco will continue zosyn wound care rest as per the team
[2018-11-22] MEDS: FUROSEMIDE 40 MG TABLET (FP) PO SCH (10:56)
[2018-11-22] MEDS: metoPROLOL SUCCINATE 25 MG TAB.SR.24H (FP) PO SCH (10:56)
[2018-11-22] MEDS: FOLIC ACID 1 MG TABLET (FP) PO SCH (10:56)
[2018-11-22] MEDS: ALLOPURINOL 300 MG TABLET (FP) PO SCH (10:56)
[2018-11-22] MEDS: MULTIVITAMINS (DAILY MVI) TABLET (FP) PO SCH (10:56)
[2018-11-22] MEDS: ASPIRIN 81 MG CHEWABLE TABLETS PO SCH (10:56)
[2018-11-22] MEDS: HEPARIN NA (PORCINE) 5,000 UNITS/ML 1ML VIAL SQ SCH ×2 (10:56→21:53)
[2018-11-22] MEDS: CALCIUM 250MG/VIT-D 125 UNITS 1 COMBO TABLET PO SCH (10:59)
--- NOTE | 2018-11-22 13:58 | EKG ---
Test Reason : Blood Pressure : / mmHG Vent. Rate : 096 BPM Atrial Rate : 101 BPM P-R Int : 000 ms QRS Dur : 112 ms QT Int : 422 ms P-R-T Axes : 000 -39 137 degrees QTc Int : 533 ms ATRIAL FIBRILLATION LEFT AXIS DEVIATION CANNOT RULE OUT ANTERIOR INFARCT , AGE UNDETERMINED PROLONGED QT ABNORMAL ECG WHEN COMPARED WITH ECG OF 27-JUL-2018 13:05, SIGNIFICANT CHANGES HAVE OCCURRED Confirmed by STEVE MURPHY, BALDEMAR ([id number]) on 11/22/2018 1:58:02 PM Referred By: Confirmed By:BALDEMAR WILSON MD
--- NOTE | 2018-11-22 16:40 | PN ---
Progress Note, Physician - Current Medication List Current Medications: Active Medications Allopurinol (Zyloprim -) 300 mg PO DAILY [facility] Last Admin: 11/22/18 10:56 Dose: 300 mg Aspirin (Asa -) 81 mg PO DAILY [facility] Last Admin: 11/22/18 10:56 Dose: 81 mg Calcium/Vitamin D (Oscal 250 Mg+D -) 1 tab PO MOWEFR [facility] Last Admin: 11/22/18 10:59 Dose: 1 tab Folic Acid (Folic Acid -) 1 mg PO DAILY [facility] Last Admin: 11/22/18 10:56 Dose: 1 mg Furosemide (Lasix -) 40 mg PO DAILY [facility] Last Admin: 11/22/18 10:56 Dose: 40 mg Heparin Sodium (Porcine) (Heparin -) 5,000 unit SQ BID [facility] Last Admin: 11/22/18 10:56 Dose: 5,000 unit Piperacillin Sod/Tazobactam (Sod 2.25 gm/ Dextrose) 50 mls @ 100 mls/hr IVPB Q6H-IV [facility]; Protocol Last Admin: 11/22/18 14:55 Dose: 100 mls/hr Metoprolol Succinate (Toprol Xl -) 25 mg PO DAILY [facility] Last Admin: 11/22/18 10:56 Dose: 25 mg Multivitamins/Minerals/Vitamin C (Tab-A-Vit -) 1 tab PO DAILY [facility] Last Admin: 11/22/18 10:56 Dose: 1 tab - Objective Vital Signs: Vital Signs Temperature 99.8 F H 11/22/18 15:00 Pulse Rate 81 11/22/18 15:00 Respiratory Rate 20 11/22/18 15:00 Blood Pressure 138/80 11/22/18 15:00 O2 Sat by Pulse Oximetry (%) 93 L 11/22/18 00:39 Constitutional: Yes: No Distress HENT: Yes: Atraumatic Neck: Yes: Supple Cardiovascular: Yes: Regular Rate and Rhythm Respiratory: Yes: CTA Bilaterally Gastrointestinal: Yes: Normal Bowel Sounds Extremities: Yes: Other (cellulitis b/llex) Neurological: Yes: Alert, Oriented Labs: CBC, BMP 11/22/18 06:35 11/22/18 06:35 INR, PTT INR 1.36 (0.83-1.09) H 11/21/18 09:30 Problem List - Problems (1) Wound infection Code(s): T14.8XXA - OTHER INJURY OF UNSPECIFIED BODY REGION, INITIAL ENCOUNTER; L08.9 - LOCAL INFECTION OF THE SKIN AND SUBCUTANEOUS TISSUE, UNSP (2) Lymphedema of both lower extremities Code(s): I89.0 - LYMPHEDEMA, NOT ELSEWHERE CLASSIFIED (3) Diastolic CHF Assessment/Plan: continue home meds Code(s): I50.30 - UNSPECIFIED DIASTOLIC (CONGESTIVE) HEART FAILURE (4) Cellulitis and abscess of leg Assessment/Plan: iv abx wound care id consult Code(s): L02.419 - CUTANEOUS ABSCESS OF LIMB, UNSPECIFIED; L03.119 - CELLULITIS OF UNSPECIFIED PART OF LIMB
[2018-11-22] MEDS ORDERED: PT OWN MED DRAWER 7, Y5N ONE (22:15)
[2018-11-23] MEDS ORDERED: DEXTROSE 5%-WATER - 50 ML IVPB ONE ×4 (01:32→22:51)
[2018-11-23] MEDS ORDERED: PIPERACILLIN/TAZOBACTAM 2.25 GM VIAL IVPB ONE ×4 (01:32→22:50)
[2018-11-23] MEDS: PIPERACILLIN/TAZOB 2.25 GM 2.25 GM in DEXTROSE 5%-WATER - 50 ML IVPB SCH ×4 (02:52→23:06)
--- NOTE | 2018-11-23 08:49 | PN ---
Progress Note, Physician History of Present Illness: stable no new issues feels better - Current Medication List Current Medications: Active Medications Allopurinol (Zyloprim -) 300 mg PO DAILY [facility] Last Admin: 11/22/18 10:56 Dose: 300 mg Aspirin (Asa -) 81 mg PO DAILY [facility] Last Admin: 11/22/18 10:56 Dose: 81 mg Calcium/Vitamin D (Oscal 250 Mg+D -) 1 tab PO MOWEFR [facility] Last Admin: 11/22/18 10:59 Dose: 1 tab Folic Acid (Folic Acid -) 1 mg PO DAILY [facility] Last Admin: 11/22/18 10:56 Dose: 1 mg Furosemide (Lasix -) 40 mg PO DAILY [facility] Last Admin: 11/22/18 10:56 Dose: 40 mg Heparin Sodium (Porcine) (Heparin -) 5,000 unit SQ BID [facility] Last Admin: 11/22/18 21:53 Dose: 5,000 unit Piperacillin Sod/Tazobactam (Sod 2.25 gm/ Dextrose) 50 mls @ 100 mls/hr IVPB Q6H-IV [facility]; Protocol Last Admin: 11/23/18 02:52 Dose: 100 mls/hr Metoprolol Succinate (Toprol Xl -) 25 mg PO DAILY [facility] Last Admin: 11/22/18 10:56 Dose: 25 mg Multivitamins/Minerals/Vitamin C (Tab-A-Vit -) 1 tab PO DAILY [facility] Last Admin: 11/22/18 10:56 Dose: 1 tab - Objective Vital Signs: Vital Signs Temperature 98.2 F 11/23/18 06:00 Pulse Rate 78 11/23/18 06:00 Respiratory Rate 20 11/22/18 21:00 Blood Pressure 128/72 11/23/18 06:00 O2 Sat by Pulse Oximetry (%) 93 L 11/22/18 00:39 Constitutional: Yes: No Distress, Calm Cardiovascular: Yes: S1, S2 Respiratory: Yes: Regular, CTA Bilaterally Gastrointestinal: Yes: Normal Bowel Sounds, Soft Musculoskeletal: Yes: WNL Extremities: Yes: Other Wound/Incision: Yes: Dressing Dry and Intact Neurological: Yes: Alert, Oriented Psychiatric: Yes: Alert, Oriented Labs: CBC, BMP 11/22/18 06:35 11/22/18 06:35 INR, PTT INR 1.36 (0.83-1.09) H 11/21/18 09:30 Assessment/Plan Problem List - Problems (1) Wound infection Code(s): T14.8XXA - OTHER INJURY OF UNSPECIFIED BODY REGION, INITIAL ENCOUNTER; L08.9 - LOCAL INFECTION OF THE SKIN AND SUBCUTANEOUS TISSUE, UNSP (2) Lymphedema of both lower extremities Code(s): I89.0 - LYMPHEDEMA, NOT ELSEWHERE CLASSIFIED (3) Diastolic CHF Code(s): I50.30 - UNSPECIFIED DIASTOLIC (CONGESTIVE) HEART FAILURE (4) Cellulitis and abscess of leg Code(s): L02.419 - CUTANEOUS ABSCESS OF LIMB, UNSPECIFIED; L03.119 - CELLULITIS OF UNSPECIFIED PART OF LIMB plan continue abx wound care rest as per the team
[2018-11-23] MEDS: metoPROLOL SUCCINATE 25 MG TAB.SR.24H (FP) PO SCH (09:11)
[2018-11-23] MEDS: ALLOPURINOL 300 MG TABLET (FP) PO SCH (09:11)
[2018-11-23] MEDS: MULTIVITAMINS (DAILY MVI) TABLET (FP) PO SCH (09:11)
[2018-11-23] MEDS: FUROSEMIDE 40 MG TABLET (FP) PO SCH (09:11)
[2018-11-23] MEDS: FOLIC ACID 1 MG TABLET (FP) PO SCH (09:11)
[2018-11-23] MEDS: HEPARIN NA (PORCINE) 5,000 UNITS/ML 1ML VIAL SQ SCH ×2 (09:11→23:03)
[2018-11-23] MEDS: ASPIRIN 81 MG CHEWABLE TABLETS PO SCH (09:11)
[2018-11-23] MEDS: CALCIUM 250MG/VIT-D 125 UNITS 1 COMBO TABLET PO SCH (10:43)
--- NOTE | 2018-11-23 17:26 | PN ---
Progress Note, Physician - Current Medication List Current Medications: Active Medications Allopurinol (Zyloprim -) 300 mg PO DAILY [facility] Last Admin: 11/23/18 09:11 Dose: 300 mg Aspirin (Asa -) 81 mg PO DAILY [facility] Last Admin: 11/23/18 09:11 Dose: 81 mg Calcium/Vitamin D (Oscal 250 Mg+D -) 1 tab PO MOWEFR [facility] Last Admin: 11/23/18 10:43 Dose: 1 tab Folic Acid (Folic Acid -) 1 mg PO DAILY [facility] Last Admin: 11/23/18 09:11 Dose: 1 mg Furosemide (Lasix -) 40 mg PO DAILY [facility] Last Admin: 11/23/18 09:11 Dose: 40 mg Heparin Sodium (Porcine) (Heparin -) 5,000 unit SQ BID [facility] Last Admin: 11/23/18 09:11 Dose: 5,000 unit Piperacillin Sod/Tazobactam (Sod 2.25 gm/ Dextrose) 50 mls @ 100 mls/hr IVPB Q6H-IV [facility]; Protocol Last Admin: 11/23/18 15:02 Dose: 100 mls/hr Metoprolol Succinate (Toprol Xl -) 25 mg PO DAILY [facility] Last Admin: 11/23/18 09:11 Dose: 25 mg Multivitamins/Minerals/Vitamin C (Tab-A-Vit -) 1 tab PO DAILY [facility] Last Admin: 11/23/18 09:11 Dose: 1 tab - Objective Vital Signs: Vital Signs Temperature 98.8 F 11/23/18 11:01 Pulse Rate 60 11/23/18 11:01 Respiratory Rate 22 H 11/23/18 11:01 Blood Pressure 138/78 11/23/18 11:01 O2 Sat by Pulse Oximetry (%) 93 L 11/22/18 00:39 Constitutional: Yes: No Distress HENT: Yes: Atraumatic Neck: Yes: Supple Cardiovascular: Yes: Regular Rate and Rhythm Respiratory: Yes: CTA Bilaterally Gastrointestinal: Yes: Normal Bowel Sounds Extremities: Yes: Other (b/l porfirio celluilitis) Neurological: Yes: Alert, Oriented Labs: CBC, BMP 11/22/18 06:35 11/22/18 06:35 INR, PTT INR 1.36 (0.83-1.09) H 11/21/18 09:30 Problem List - Problems (1) Wound infection Assessment/Plan: iv abx woud care dressing change Code(s): T14.8XXA - OTHER INJURY OF UNSPECIFIED BODY REGION, INITIAL ENCOUNTER; L08.9 - LOCAL INFECTION OF THE SKIN AND SUBCUTANEOUS TISSUE, UNSP (2) Lymphedema of both lower extremities Code(s): I89.0 - LYMPHEDEMA, NOT ELSEWHERE CLASSIFIED (3) Diastolic CHF Assessment/Plan: continue home meds Code(s): I50.30 - UNSPECIFIED DIASTOLIC (CONGESTIVE) HEART FAILURE (4) Cellulitis and abscess of leg Assessment/Plan: iv abx wound care id consult Code(s): L02.419 - CUTANEOUS ABSCESS OF LIMB, UNSPECIFIED; L03.119 - CELLULITIS OF UNSPECIFIED PART OF LIMB (5) Morbid obesity Code(s): E66.01 - MORBID (SEVERE) OBESITY DUE TO EXCESS CALORIES (6) Bilateral lower leg cellulitis Code(s): L03.116 - CELLULITIS OF LEFT LOWER LIMB; L03.115 - CELLULITIS OF RIGHT LOWER LIMB
[2018-11-24] MEDS ORDERED: DEXTROSE 5%-WATER - 50 ML IVPB ONE ×4 (02:32→20:29)
[2018-11-24] MEDS ORDERED: PIPERACILLIN/TAZOBACTAM 2.25 GM VIAL IVPB ONE ×4 (02:32→20:29)
[2018-11-24] MEDS: PIPERACILLIN/TAZOB 2.25 GM 2.25 GM in DEXTROSE 5%-WATER - 50 ML IVPB SCH ×4 (03:31→20:53)
[2018-11-24 07:12] LABS: ALBUMIN 2.1 g/dl (3.4-5.0); BILIRUBIN,TOTAL 0.5 mg/dL (0.2-1); BLOOD UREA NITROGEN 42.4 mg/dL (7-18); CALCIUM 7.6 mg/dL (8.5-10.1); CREATININE 2.6 mg/dL (0.55-1.3); POTASSIUM 4.1 mmol/L (3.5-5.1); TOT PROT 7.3 g/dl (6.4-8.2)
[2018-11-24 07:36] LABS: BASO % 0.8 % (0-2.0); HEMATOCRIT 25.3 % (35.4-49); HEMOGLOBIN 8.1 GM/dL (11.7-16.9); LYMPH % 14.2 % (8-40); MCH 26.6 pg (25.7-33.7); MEAN CELL VOLUME 83.1 fl (80-96); MEAN PLT VOLUME 9.6 fl (7.5-11.1); MONO % 11.7 % (3.8-10.2); NEUT % 68.3 % (42.8-82.8); PLATELET COUNT 204 K/MM3 (134-434); RBC 3.05 M/mm3 (4.00-5.60)
[2018-11-24] MEDS: ALLOPURINOL 300 MG TABLET (FP) PO SCH (11:30)
[2018-11-24] MEDS: MULTIVITAMINS (DAILY MVI) TABLET (FP) PO SCH (11:30)
[2018-11-24] MEDS: ASPIRIN 81 MG CHEWABLE TABLETS PO SCH (11:30)
[2018-11-24] MEDS: FUROSEMIDE 40 MG TABLET (FP) PO SCH (11:30)
[2018-11-24] MEDS: FOLIC ACID 1 MG TABLET (FP) PO SCH (11:30)
[2018-11-24] MEDS: HEPARIN NA (PORCINE) 5,000 UNITS/ML 1ML VIAL SQ SCH ×2 (11:30→20:59)
[2018-11-24] MEDS: metoPROLOL SUCCINATE 25 MG TAB.SR.24H (FP) PO SCH ×2 (11:30)
--- NOTE | 2018-11-24 11:34 | PN ---
Progress Note, Physician History of Present Illness: patient stable no new issues wounds look better - Current Medication List Current Medications: Active Medications Allopurinol (Zyloprim -) 300 mg PO DAILY [facility] Last Admin: 11/24/18 11:30 Dose: 300 mg Aspirin (Asa -) 81 mg PO DAILY [facility] Last Admin: 11/24/18 11:30 Dose: 81 mg Calcium/Vitamin D (Oscal 250 Mg+D -) 1 tab PO MOWEFR [facility] Last Admin: 11/23/18 10:43 Dose: 1 tab Folic Acid (Folic Acid -) 1 mg PO DAILY [facility] Last Admin: 11/24/18 11:30 Dose: 1 mg Furosemide (Lasix -) 40 mg PO DAILY [facility] Last Admin: 11/24/18 11:30 Dose: 40 mg Heparin Sodium (Porcine) (Heparin -) 5,000 unit SQ BID [facility] Last Admin: 11/24/18 11:30 Dose: 5,000 unit Piperacillin Sod/Tazobactam (Sod 2.25 gm/ Dextrose) 50 mls @ 100 mls/hr IVPB Q6H-IV [facility]; Protocol Last Admin: 11/24/18 11:29 Dose: 100 mls/hr Metoprolol Succinate (Toprol Xl -) 25 mg PO DAILY [facility] Last Admin: 11/24/18 11:30 Dose: 25 mg Multivitamins/Minerals/Vitamin C (Tab-A-Vit -) 1 tab PO DAILY [facility] Last Admin: 11/24/18 11:30 Dose: 1 tab - Objective Vital Signs: Vital Signs Temperature 98.7 F 11/24/18 07:23 Pulse Rate 90 11/24/18 10:26 Respiratory Rate 18 11/24/18 10:26 Blood Pressure 125/85 11/24/18 10:26 O2 Sat by Pulse Oximetry (%) 93 L 11/22/18 00:39 Constitutional: Yes: No Distress, Calm Cardiovascular: Yes: S1, S2 Respiratory: Yes: Regular, CTA Bilaterally Gastrointestinal: Yes: Normal Bowel Sounds, Soft Musculoskeletal: Yes: WNL Extremities: Yes: Other Neurological: Yes: Alert, Oriented Psychiatric: Yes: Alert, Oriented Labs: CBC, BMP 11/24/18 06:18 11/24/18 06:18 INR, PTT INR 1.36 (0.83-1.09) H 11/21/18 09:30 Assessment/Plan Problem List - Problems (1) Wound infection Code(s): T14.8XXA - OTHER INJURY OF UNSPECIFIED BODY REGION, INITIAL ENCOUNTER; L08.9 - LOCAL INFECTION OF THE SKIN AND SUBCUTANEOUS TISSUE, UNSP (2) Lymphedema of both lower extremities Code(s): I89.0 - LYMPHEDEMA, NOT ELSEWHERE CLASSIFIED (3) Diastolic CHF Code(s): I50.30 - UNSPECIFIED DIASTOLIC (CONGESTIVE) HEART FAILURE (4) Cellulitis and abscess of leg Code(s): L02.419 - CUTANEOUS ABSCESS OF LIMB, UNSPECIFIED; L03.119 - CELLULITIS OF UNSPECIFIED PART OF LIMB plan continue abx wound care rest as per the team
--- NOTE | 2018-11-24 19:19 | PN ---
Progress Note, Physician History of Present Illness: doing well - Current Medication List Current Medications: Active Medications Allopurinol (Zyloprim -) 300 mg PO DAILY [facility] Last Admin: 11/24/18 11:30 Dose: 300 mg Aspirin (Asa -) 81 mg PO DAILY [facility] Last Admin: 11/24/18 11:30 Dose: 81 mg Calcium/Vitamin D (Oscal 250 Mg+D -) 1 tab PO MOWEFR [facility] Last Admin: 11/23/18 10:43 Dose: 1 tab Emollient Ointment (Aquaphor -) 1 applic TP BID [facility] Folic Acid (Folic Acid -) 1 mg PO DAILY [facility] Last Admin: 11/24/18 11:30 Dose: 1 mg Furosemide (Lasix -) 40 mg PO DAILY [facility] Last Admin: 11/24/18 11:30 Dose: 40 mg Heparin Sodium (Porcine) (Heparin -) 5,000 unit SQ BID [facility] Last Admin: 11/24/18 11:30 Dose: 5,000 unit Piperacillin Sod/Tazobactam (Sod 2.25 gm/ Dextrose) 50 mls @ 100 mls/hr IVPB Q6H-IV [facility]; Protocol Last Admin: 11/24/18 16:57 Dose: 100 mls/hr Metoprolol Succinate (Toprol Xl -) 25 mg PO DAILY [facility] Last Admin: 11/24/18 11:30 Dose: 25 mg Multivitamins/Minerals/Vitamin C (Tab-A-Vit -) 1 tab PO DAILY [facility] Last Admin: 11/24/18 11:30 Dose: 1 tab - Objective Vital Signs: Vital Signs Temperature 97.6 F 11/24/18 16:30 Pulse Rate 107 H 11/24/18 16:30 Respiratory Rate 20 11/24/18 16:30 Blood Pressure 114/71 11/24/18 16:30 O2 Sat by Pulse Oximetry (%) 98 11/24/18 09:00 Constitutional: Yes: No Distress HENT: Yes: Atraumatic Neck: Yes: Supple Cardiovascular: Yes: Regular Rate and Rhythm Respiratory: Yes: CTA Bilaterally Gastrointestinal: Yes: Normal Bowel Sounds Extremities: Yes: Other (b/l porfirio cellulitis) Neurological: Yes: Alert, Oriented Labs: CBC, BMP 11/24/18 06:18 11/24/18 06:18 INR, PTT INR 1.36 (0.83-1.09) H 11/21/18 09:30 Problem List - Problems (1) Wound infection Assessment/Plan: iv abx woud care dressing change Code(s): T14.8XXA - OTHER INJURY OF UNSPECIFIED BODY REGION, INITIAL ENCOUNTER; L08.9 - LOCAL INFECTION OF THE SKIN AND SUBCUTANEOUS TISSUE, UNSP (2) Lymphedema of both lower extremities Code(s): I89.0 - LYMPHEDEMA, NOT ELSEWHERE CLASSIFIED (3) Diastolic CHF Assessment/Plan: continue home meds Code(s): I50.30 - UNSPECIFIED DIASTOLIC (CONGESTIVE) HEART FAILURE (4) Cellulitis and abscess of leg Assessment/Plan: iv abx wound care id consult Code(s): L02.419 - CUTANEOUS ABSCESS OF LIMB, UNSPECIFIED; L03.119 - CELLULITIS OF UNSPECIFIED PART OF LIMB (5) Morbid obesity Code(s): E66.01 - MORBID (SEVERE) OBESITY DUE TO EXCESS CALORIES (6) Bilateral lower leg cellulitis Code(s): L03.116 - CELLULITIS OF LEFT LOWER LIMB; L03.115 - CELLULITIS OF RIGHT LOWER LIMB
[2018-11-24] MEDS: MINERAL OIL/PET HY-PHL TOPICAL OINTMENT 454 GM JAR TP SCH (20:59)
[2018-11-25] MEDS ORDERED: DEXTROSE 5%-WATER - 50 ML IVPB ONE ×4 (02:39→20:07)
[2018-11-25] MEDS ORDERED: PIPERACILLIN/TAZOBACTAM 2.25 GM VIAL IVPB ONE ×4 (02:39→20:06)
[2018-11-25] MEDS: PIPERACILLIN/TAZOB 2.25 GM 2.25 GM in DEXTROSE 5%-WATER - 50 ML IVPB SCH ×4 (02:44→21:13)
[2018-11-25 07:44] LABS: BILIRUBIN,TOTAL 0.4 mg/dL (0.2-1); BLOOD UREA NITROGEN 41.3 mg/dL (7-18); CALCIUM 7.4 mg/dL (8.5-10.1); CREATININE 2.6 mg/dL (0.55-1.3); POTASSIUM 4.1 mmol/L (3.5-5.1)
[2018-11-25] MEDS: FUROSEMIDE 40 MG TABLET (FP) PO SCH (09:36)
[2018-11-25] MEDS: metoPROLOL SUCCINATE 25 MG TAB.SR.24H (FP) PO SCH (09:36)
[2018-11-25] MEDS: FOLIC ACID 1 MG TABLET (FP) PO SCH (09:36)
[2018-11-25] MEDS: ALLOPURINOL 300 MG TABLET (FP) PO SCH (09:36)
[2018-11-25] MEDS: ASPIRIN 81 MG CHEWABLE TABLETS PO SCH (09:36)
[2018-11-25] MEDS: MULTIVITAMINS (DAILY MVI) TABLET (FP) PO SCH (09:36)
[2018-11-25] MEDS: HEPARIN NA (PORCINE) 5,000 UNITS/ML 1ML VIAL SQ SCH ×2 (09:37→21:13)
[2018-11-25] MEDS: MINERAL OIL/PET HY-PHL TOPICAL OINTMENT 454 GM JAR TP SCH ×2 (09:37→21:16)
--- NOTE | 2018-11-25 11:57 | PN ---
Progress Note, Physician History of Present Illness: stable no new issues - Current Medication List Current Medications: Active Medications Allopurinol (Zyloprim -) 300 mg PO DAILY [facility] Last Admin: 11/25/18 09:36 Dose: 300 mg Aspirin (Asa -) 81 mg PO DAILY [facility] Last Admin: 11/25/18 09:36 Dose: 81 mg Calcium/Vitamin D (Oscal 250 Mg+D -) 1 tab PO MOWEFR [facility] Last Admin: 11/23/18 10:43 Dose: 1 tab Emollient Ointment (Aquaphor -) 1 applic TP BID [facility] Last Admin: 11/25/18 09:37 Dose: 1 applic Folic Acid (Folic Acid -) 1 mg PO DAILY [facility] Last Admin: 11/25/18 09:36 Dose: 1 mg Furosemide (Lasix -) 40 mg PO DAILY [facility] Last Admin: 11/25/18 09:36 Dose: 40 mg Heparin Sodium (Porcine) (Heparin -) 5,000 unit SQ BID [facility] Last Admin: 11/25/18 09:37 Dose: 5,000 unit Piperacillin Sod/Tazobactam (Sod 2.25 gm/ Dextrose) 50 mls @ 100 mls/hr IVPB Q6H-IV [facility]; Protocol Last Admin: 11/25/18 09:36 Dose: 100 mls/hr Metoprolol Succinate (Toprol Xl -) 25 mg PO DAILY [facility] Last Admin: 11/25/18 09:36 Dose: 25 mg Multivitamins/Minerals/Vitamin C (Tab-A-Vit -) 1 tab PO DAILY [facility] Last Admin: 11/25/18 09:36 Dose: 1 tab - Objective Vital Signs: Vital Signs Temperature 98.2 F 11/25/18 09:24 Pulse Rate 103 H 11/25/18 09:24 Respiratory Rate 18 11/25/18 09:24 Blood Pressure 124/77 11/25/18 09:24 O2 Sat by Pulse Oximetry (%) 98 11/24/18 21:00 Constitutional: Yes: No Distress, Calm Cardiovascular: Yes: S1, S2 Respiratory: Yes: Regular, CTA Bilaterally Gastrointestinal: Yes: Normal Bowel Sounds, Soft Musculoskeletal: Yes: WNL Extremities: Yes: Other Wound/Incision: Yes: Dressing Dry and Intact Neurological: Yes: Alert, Oriented Psychiatric: Yes: Alert, Oriented Labs: CBC, BMP 11/24/18 06:18 11/25/18 06:25 INR, PTT INR 1.36 (0.83-1.09) H 11/21/18 09:30 Assessment/Plan Problem List - Problems (1) Wound infection Code(s): T14.8XXA - OTHER INJURY OF UNSPECIFIED BODY REGION, INITIAL ENCOUNTER; L08.9 - LOCAL INFECTION OF THE SKIN AND SUBCUTANEOUS TISSUE, UNSP (2) Lymphedema of both lower extremities Code(s): I89.0 - LYMPHEDEMA, NOT ELSEWHERE CLASSIFIED (3) Diastolic CHF Code(s): I50.30 - UNSPECIFIED DIASTOLIC (CONGESTIVE) HEART FAILURE (4) Cellulitis and abscess of leg Code(s): L02.419 - CUTANEOUS ABSCESS OF LIMB, UNSPECIFIED; L03.119 - CELLULITIS OF UNSPECIFIED PART OF LIMB plan continue abx wound care rest as per the team
--- NOTE | 2018-11-25 16:06 | PN ---
Progress Note, Physician History of Present Illness: doing well - Current Medication List Current Medications: Active Medications Allopurinol (Zyloprim -) 300 mg PO DAILY [facility] Last Admin: 11/25/18 09:36 Dose: 300 mg Aspirin (Asa -) 81 mg PO DAILY [facility] Last Admin: 11/25/18 09:36 Dose: 81 mg Calcium/Vitamin D (Oscal 250 Mg+D -) 1 tab PO MOWEFR [facility] Last Admin: 11/23/18 10:43 Dose: 1 tab Emollient Ointment (Aquaphor -) 1 applic TP BID [facility] Last Admin: 11/25/18 09:37 Dose: 1 applic Folic Acid (Folic Acid -) 1 mg PO DAILY [facility] Last Admin: 11/25/18 09:36 Dose: 1 mg Furosemide (Lasix -) 40 mg PO DAILY [facility] Last Admin: 11/25/18 09:36 Dose: 40 mg Heparin Sodium (Porcine) (Heparin -) 5,000 unit SQ BID [facility] Last Admin: 11/25/18 09:37 Dose: 5,000 unit Piperacillin Sod/Tazobactam (Sod 2.25 gm/ Dextrose) 50 mls @ 100 mls/hr IVPB Q6H-IV [facility]; Protocol Last Admin: 11/25/18 16:00 Dose: 100 mls/hr Metoprolol Succinate (Toprol Xl -) 25 mg PO DAILY [facility] Last Admin: 11/25/18 09:36 Dose: 25 mg Multivitamins/Minerals/Vitamin C (Tab-A-Vit -) 1 tab PO DAILY [facility] Last Admin: 11/25/18 09:36 Dose: 1 tab - Objective Vital Signs: Vital Signs Temperature 98.2 F 11/25/18 09:24 Pulse Rate 103 H 11/25/18 09:24 Respiratory Rate 18 11/25/18 09:24 Blood Pressure 124/77 11/25/18 09:24 O2 Sat by Pulse Oximetry (%) 98 11/24/18 21:00 Constitutional: Yes: No Distress HENT: Yes: Atraumatic Neck: Yes: Supple Cardiovascular: Yes: Regular Rate and Rhythm Respiratory: Yes: CTA Bilaterally Gastrointestinal: Yes: Normal Bowel Sounds Extremities: Yes: Other (b/l porfirio cellulitis) Edema: Yes Neurological: Yes: Alert, Oriented Labs: CBC, BMP 11/24/18 06:18 11/25/18 06:25 INR, PTT INR 1.36 (0.83-1.09) H 11/21/18 09:30 Problem List - Problems (1) Wound infection Assessment/Plan: iv abx woud care dressing change Code(s): T14.8XXA - OTHER INJURY OF UNSPECIFIED BODY REGION, INITIAL ENCOUNTER; L08.9 - LOCAL INFECTION OF THE SKIN AND SUBCUTANEOUS TISSUE, UNSP (2) Lymphedema of both lower extremities Code(s): I89.0 - LYMPHEDEMA, NOT ELSEWHERE CLASSIFIED (3) Diastolic CHF Assessment/Plan: continue home meds Code(s): I50.30 - UNSPECIFIED DIASTOLIC (CONGESTIVE) HEART FAILURE (4) Cellulitis and abscess of leg Assessment/Plan: iv abx wound care id consult Code(s): L02.419 - CUTANEOUS ABSCESS OF LIMB, UNSPECIFIED; L03.119 - CELLULITIS OF UNSPECIFIED PART OF LIMB (5) Morbid obesity Code(s): E66.01 - MORBID (SEVERE) OBESITY DUE TO EXCESS CALORIES (6) Bilateral lower leg cellulitis Code(s): L03.116 - CELLULITIS OF LEFT LOWER LIMB; L03.115 - CELLULITIS OF RIGHT LOWER LIMB
[2018-11-26] MEDS ORDERED: DEXTROSE 5%-WATER - 50 ML IVPB ONE ×4 (02:45→21:17)
[2018-11-26] MEDS ORDERED: PIPERACILLIN/TAZOBACTAM 2.25 GM VIAL IVPB ONE ×4 (02:45→21:17)
[2018-11-26] MEDS: PIPERACILLIN/TAZOB 2.25 GM 2.25 GM in DEXTROSE 5%-WATER - 50 ML IVPB SCH ×4 (02:51→21:20)
[2018-11-26 09:05] LABS: BASO % 0.9 % (0-2.0); EOS % 6.4 % (0-4.5); HEMATOCRIT 25.5 % (35.4-49); HEMOGLOBIN 8.2 GM/dL (11.7-16.9); LYMPH % 12.2 % (8-40); MCH 26.6 pg (25.7-33.7); MEAN CELL VOLUME 83.1 fl (80-96); MEAN PLT VOLUME 9.3 fl (7.5-11.1); MONO % 10.1 % (3.8-10.2); NEUT % 70.4 % (42.8-82.8); PLATELET COUNT 219 K/MM3 (134-434); RBC 3.07 M/mm3 (4.00-5.60); RDW 17.4 % (11.9-15.9); WHITE BLOOD COUNT 5.2 K/mm3 (4.0-10.0)
[2018-11-26 09:15] LABS: BILIRUBIN,TOTAL 0.5 mg/dL (0.2-1); BLOOD UREA NITROGEN 42.6 mg/dL (7-18); CREATININE 2.5 mg/dL (0.55-1.3); POTASSIUM 3.9 mmol/L (3.5-5.1); TOT PROT 6.7 g/dl (6.4-8.2)
--- NOTE | 2018-11-26 09:15 | PN ---
Progress Note, Physician - Current Medication List Current Medications: Active Medications Allopurinol (Zyloprim -) 300 mg PO DAILY [facility] Last Admin: 11/25/18 09:36 Dose: 300 mg Aspirin (Asa -) 81 mg PO DAILY [facility] Last Admin: 11/25/18 09:36 Dose: 81 mg Calcium/Vitamin D (Oscal 250 Mg+D -) 1 tab PO MOWEFR [facility] Last Admin: 11/23/18 10:43 Dose: 1 tab Emollient Ointment (Aquaphor -) 1 applic TP BID [facility] Last Admin: 11/25/18 21:16 Dose: 1 applic Folic Acid (Folic Acid -) 1 mg PO DAILY [facility] Last Admin: 11/25/18 09:36 Dose: 1 mg Furosemide (Lasix -) 40 mg PO DAILY [facility] Last Admin: 11/25/18 09:36 Dose: 40 mg Heparin Sodium (Porcine) (Heparin -) 5,000 unit SQ BID [facility] Last Admin: 11/25/18 21:13 Dose: 5,000 unit Piperacillin Sod/Tazobactam (Sod 2.25 gm/ Dextrose) 50 mls @ 100 mls/hr IVPB Q6H-IV [facility]; Protocol Last Admin: 11/26/18 02:51 Dose: 100 mls/hr Metoprolol Succinate (Toprol Xl -) 25 mg PO DAILY [facility] Last Admin: 11/25/18 09:36 Dose: 25 mg Multivitamins/Minerals/Vitamin C (Tab-A-Vit -) 1 tab PO DAILY [facility] Last Admin: 11/25/18 09:36 Dose: 1 tab - Objective Vital Signs: Vital Signs Temperature 97.8 F 11/25/18 16:30 Pulse Rate 93 H 11/25/18 16:30 Respiratory Rate 20 11/25/18 16:30 Blood Pressure 128/79 11/25/18 16:30 O2 Sat by Pulse Oximetry (%) 98 11/25/18 21:00 Labs: CBC, BMP 11/26/18 07:33 INR, PTT INR 1.36 (0.83-1.09) H 11/21/18 09:30
[2018-11-26 09:22] LABS: CALCIUM 6.8 mg/dL (8.5-10.1)
[2018-11-26] MEDS: HEPARIN NA (PORCINE) 5,000 UNITS/ML 1ML VIAL SQ SCH ×2 (09:45→21:21)
[2018-11-26] MEDS: ALLOPURINOL 300 MG TABLET (FP) PO SCH (09:45)
[2018-11-26] MEDS: FOLIC ACID 1 MG TABLET (FP) PO SCH (09:46)
[2018-11-26] MEDS: metoPROLOL SUCCINATE 25 MG TAB.SR.24H (FP) PO SCH (09:46)
[2018-11-26] MEDS: MULTIVITAMINS (DAILY MVI) TABLET (FP) PO SCH (09:46)
[2018-11-26] MEDS: FUROSEMIDE 40 MG TABLET (FP) PO SCH (09:46)
[2018-11-26] MEDS: ASPIRIN 81 MG CHEWABLE TABLETS PO SCH (09:46)
[2018-11-26] MEDS: MINERAL OIL/PET HY-PHL TOPICAL OINTMENT 454 GM JAR TP SCH ×2 (09:49→22:11)
[2018-11-26] MEDS: CALCIUM 250MG/VIT-D 125 UNITS 1 COMBO TABLET PO SCH (09:51)
--- NOTE | 2018-11-26 18:18 | PN ---
Progress Note, Physician - Current Medication List Current Medications: Active Medications Allopurinol (Zyloprim -) 300 mg PO DAILY [facility] Last Admin: 11/26/18 09:45 Dose: 300 mg Aspirin (Asa -) 81 mg PO DAILY [facility] Last Admin: 11/26/18 09:46 Dose: 81 mg Calcium/Vitamin D (Oscal 250 Mg+D -) 1 tab PO MOWEFR [facility] Last Admin: 11/26/18 09:51 Dose: 1 tab Emollient Ointment (Aquaphor -) 1 applic TP BID [facility] Last Admin: 11/26/18 09:49 Dose: 1 applic Folic Acid (Folic Acid -) 1 mg PO DAILY [facility] Last Admin: 11/26/18 09:46 Dose: 1 mg Furosemide (Lasix -) 40 mg PO DAILY [facility] Last Admin: 11/26/18 09:46 Dose: 40 mg Heparin Sodium (Porcine) (Heparin -) 5,000 unit SQ BID [facility] Last Admin: 11/26/18 09:45 Dose: 5,000 unit Piperacillin Sod/Tazobactam (Sod 2.25 gm/ Dextrose) 50 mls @ 100 mls/hr IVPB Q6H-IV [facility]; Protocol Last Admin: 11/26/18 15:49 Dose: 100 mls/hr Metoprolol Succinate (Toprol Xl -) 25 mg PO DAILY [facility] Last Admin: 11/26/18 09:46 Dose: 25 mg Multivitamins/Minerals/Vitamin C (Tab-A-Vit -) 1 tab PO DAILY [facility] Last Admin: 11/26/18 09:46 Dose: 1 tab - Objective Vital Signs: Vital Signs Temperature 97.6 F 11/26/18 17:10 Pulse Rate 85 11/26/18 17:10 Respiratory Rate 20 11/26/18 17:10 Blood Pressure 114/68 11/26/18 17:10 O2 Sat by Pulse Oximetry (%) 98 11/25/18 21:00 HENT: Yes: Atraumatic Neck: Yes: Supple Cardiovascular: Yes: Regular Rate and Rhythm Respiratory: Yes: CTA Bilaterally Gastrointestinal: Yes: Normal Bowel Sounds Extremities: Yes: Other (b/l porfirio cellulitis) Neurological: Yes: Alert, Oriented Labs: CBC, BMP 11/26/18 07:33 11/26/18 07:33 INR, PTT INR 1.36 (0.83-1.09) H 11/21/18 09:30 Problem List - Problems (1) Wound infection Assessment/Plan: iv abx woud care dressing change Code(s): T14.8XXA - OTHER INJURY OF UNSPECIFIED BODY REGION, INITIAL ENCOUNTER; L08.9 - LOCAL INFECTION OF THE SKIN AND SUBCUTANEOUS TISSUE, UNSP (2) Lymphedema of both lower extremities Code(s): I89.0 - LYMPHEDEMA, NOT ELSEWHERE CLASSIFIED (3) Diastolic CHF Assessment/Plan: continue home meds Code(s): I50.30 - UNSPECIFIED DIASTOLIC (CONGESTIVE) HEART FAILURE (4) Cellulitis and abscess of leg Assessment/Plan: iv abx wound care id consult Code(s): L02.419 - CUTANEOUS ABSCESS OF LIMB, UNSPECIFIED; L03.119 - CELLULITIS OF UNSPECIFIED PART OF LIMB (5) Morbid obesity Code(s): E66.01 - MORBID (SEVERE) OBESITY DUE TO EXCESS CALORIES (6) Bilateral lower leg cellulitis Code(s): L03.116 - CELLULITIS OF LEFT LOWER LIMB; L03.115 - CELLULITIS OF RIGHT LOWER LIMB
[2018-11-27] MEDS ORDERED: DEXTROSE 5%-WATER - 50 ML IVPB ONE ×4 (03:49→21:14)
[2018-11-27] MEDS ORDERED: PIPERACILLIN/TAZOBACTAM 2.25 GM VIAL IVPB ONE ×4 (03:49→21:14)
[2018-11-27] MEDS: PIPERACILLIN/TAZOB 2.25 GM 2.25 GM in DEXTROSE 5%-WATER - 50 ML IVPB SCH ×4 (03:53→21:19)
[2018-11-27] MEDS ORDERED: PT OWN MED DRAWER 7, Y5N ONE (09:58)
[2018-11-27] MEDS: HEPARIN NA (PORCINE) 5,000 UNITS/ML 1ML VIAL SQ SCH ×2 (10:32→21:20)
[2018-11-27] MEDS: FOLIC ACID 1 MG TABLET (FP) PO SCH (10:32)
[2018-11-27] MEDS: ASPIRIN 81 MG CHEWABLE TABLETS PO SCH (10:32)
[2018-11-27] MEDS: ALLOPURINOL 300 MG TABLET (FP) PO SCH (10:32)
[2018-11-27] MEDS: MULTIVITAMINS (DAILY MVI) TABLET (FP) PO SCH (10:32)
[2018-11-27] MEDS: metoPROLOL SUCCINATE 25 MG TAB.SR.24H (FP) PO SCH (10:32)
[2018-11-27] MEDS: FUROSEMIDE 40 MG TABLET (FP) PO SCH (10:32)
[2018-11-27] MEDS: MINERAL OIL/PET HY-PHL TOPICAL OINTMENT 454 GM JAR TP SCH ×2 (10:33→21:27)
--- NOTE | 2018-11-27 11:02 | PN ---
Progress Note, Physician History of Present Illness: patient doing well no complaints - Current Medication List Current Medications: Active Medications Allopurinol (Zyloprim -) 300 mg PO DAILY [facility] Last Admin: 11/27/18 10:32 Dose: 300 mg Aspirin (Asa -) 81 mg PO DAILY [facility] Last Admin: 11/27/18 10:32 Dose: 81 mg Calcium/Vitamin D (Oscal 250 Mg+D -) 1 tab PO MOWEFR [facility] Last Admin: 11/26/18 09:51 Dose: 1 tab Emollient Ointment (Aquaphor -) 1 applic TP BID [facility] Last Admin: 11/27/18 10:33 Dose: 1 applic Folic Acid (Folic Acid -) 1 mg PO DAILY [facility] Last Admin: 11/27/18 10:32 Dose: 1 mg Furosemide (Lasix -) 40 mg PO DAILY [facility] Last Admin: 11/27/18 10:32 Dose: 40 mg Heparin Sodium (Porcine) (Heparin -) 5,000 unit SQ BID [facility] Last Admin: 11/27/18 10:32 Dose: 5,000 unit Piperacillin Sod/Tazobactam (Sod 2.25 gm/ Dextrose) 50 mls @ 100 mls/hr IVPB Q6H-IV [facility]; Protocol Last Admin: 11/27/18 10:32 Dose: 100 mls/hr Metoprolol Succinate (Toprol Xl -) 25 mg PO DAILY [facility] Last Admin: 11/27/18 10:32 Dose: 25 mg Multivitamins/Minerals/Vitamin C (Tab-A-Vit -) 1 tab PO DAILY [facility] Last Admin: 11/27/18 10:32 Dose: 1 tab - Objective Vital Signs: Vital Signs Temperature 97.8 F 11/26/18 21:00 Pulse Rate 88 11/26/18 21:00 Respiratory Rate 18 11/26/18 21:00 Blood Pressure 129/75 11/26/18 21:00 O2 Sat by Pulse Oximetry (%) 98 11/25/18 21:00 Constitutional: Yes: No Distress, Calm Cardiovascular: Yes: Regular Rate and Rhythm Respiratory: Yes: Regular, CTA Bilaterally Gastrointestinal: Yes: Normal Bowel Sounds, Soft Musculoskeletal: Yes: WNL Extremities: Yes: Other Integumentary: Yes: Other Wound/Incision: Yes: Dressing Dry and Intact Neurological: Yes: Alert, Oriented Psychiatric: Yes: Alert, Oriented Labs: CBC, BMP 11/26/18 07:33 11/26/18 07:33 INR, PTT INR 1.36 (0.83-1.09) H 11/21/18 09:30 Assessment/Plan Problem List - Problems (1) Wound infection Code(s): T14.8XXA - OTHER INJURY OF UNSPECIFIED BODY REGION, INITIAL ENCOUNTER; L08.9 - LOCAL INFECTION OF THE SKIN AND SUBCUTANEOUS TISSUE, UNSP (2) Lymphedema of both lower extremities Code(s): I89.0 - LYMPHEDEMA, NOT ELSEWHERE CLASSIFIED (3) Diastolic CHF Code(s): I50.30 - UNSPECIFIED DIASTOLIC (CONGESTIVE) HEART FAILURE (4) Cellulitis and abscess of leg will change to oral Code(s): L02.419 - CUTANEOUS ABSCESS OF LIMB, UNSPECIFIED; L03.119 - CELLULITIS OF UNSPECIFIED PART OF LIMB (5) Morbid obesity Code(s): E66.01 - MORBID (SEVERE) OBESITY DUE TO EXCESS CALORIES (6) Bilateral lower leg cellulitis Code(s): L03.116 - CELLULITIS OF LEFT LOWER LIMB; L03.115 - CELLULITIS OF RIGHT LOWER LIMB plan continue abx wound care rest as per the team will change to oral abx tomorrow
[2018-11-27 14:42] VITALS: BMI 34.2
--- NOTE | 2018-11-27 17:15 | PN ---
Progress Note, Physician - Current Medication List Current Medications: Active Medications Allopurinol (Zyloprim -) 300 mg PO DAILY [facility] Last Admin: 11/27/18 10:32 Dose: 300 mg Aspirin (Asa -) 81 mg PO DAILY [facility] Last Admin: 11/27/18 10:32 Dose: 81 mg Calcium/Vitamin D (Oscal 250 Mg+D -) 1 tab PO MOWEFR [facility] Last Admin: 11/26/18 09:51 Dose: 1 tab Emollient Ointment (Aquaphor -) 1 applic TP BID [facility] Last Admin: 11/27/18 10:33 Dose: 1 applic Folic Acid (Folic Acid -) 1 mg PO DAILY [facility] Last Admin: 11/27/18 10:32 Dose: 1 mg Furosemide (Lasix -) 40 mg PO DAILY [facility] Last Admin: 11/27/18 10:32 Dose: 40 mg Heparin Sodium (Porcine) (Heparin -) 5,000 unit SQ BID [facility] Last Admin: 11/27/18 10:32 Dose: 5,000 unit Piperacillin Sod/Tazobactam (Sod 2.25 gm/ Dextrose) 50 mls @ 100 mls/hr IVPB Q6H-IV [facility]; Protocol Last Admin: 11/27/18 15:45 Dose: 100 mls/hr Metoprolol Succinate (Toprol Xl -) 25 mg PO DAILY [facility] Last Admin: 11/27/18 10:32 Dose: 25 mg Multivitamins/Minerals/Vitamin C (Tab-A-Vit -) 1 tab PO DAILY [facility] Last Admin: 11/27/18 10:32 Dose: 1 tab - Objective Vital Signs: Vital Signs Temperature 98.1 F 11/27/18 17:04 Pulse Rate 70 11/27/18 17:04 Respiratory Rate 20 11/27/18 17:04 Blood Pressure 142/79 11/27/18 17:04 O2 Sat by Pulse Oximetry (%) 98 11/25/18 21:00 Constitutional: Yes: No Distress HENT: Yes: Atraumatic Neck: Yes: Supple Cardiovascular: Yes: Regular Rate and Rhythm Respiratory: Yes: CTA Bilaterally Gastrointestinal: Yes: Normal Bowel Sounds Extremities: Yes: WNL Edema: No Peripheral Pulses WNL: Yes Neurological: Yes: Alert, Oriented Labs: CBC, BMP 11/26/18 07:33 11/26/18 07:33 INR, PTT INR 1.36 (0.83-1.09) H 11/21/18 09:30 Problem List - Problems (1) Wound infection Assessment/Plan: iv abx woud care dressing change Code(s): T14.8XXA - OTHER INJURY OF UNSPECIFIED BODY REGION, INITIAL ENCOUNTER; L08.9 - LOCAL INFECTION OF THE SKIN AND SUBCUTANEOUS TISSUE, UNSP (2) Lymphedema of both lower extremities Code(s): I89.0 - LYMPHEDEMA, NOT ELSEWHERE CLASSIFIED (3) Diastolic CHF Assessment/Plan: continue home meds Code(s): I50.30 - UNSPECIFIED DIASTOLIC (CONGESTIVE) HEART FAILURE (4) Cellulitis and abscess of leg Assessment/Plan: iv abx wound care id consult Code(s): L02.419 - CUTANEOUS ABSCESS OF LIMB, UNSPECIFIED; L03.119 - CELLULITIS OF UNSPECIFIED PART OF LIMB (5) Morbid obesity Code(s): E66.01 - MORBID (SEVERE) OBESITY DUE TO EXCESS CALORIES (6) Bilateral lower leg cellulitis Code(s): L03.116 - CELLULITIS OF LEFT LOWER LIMB; L03.115 - CELLULITIS OF RIGHT LOWER LIMB
[2018-11-28] MEDS ORDERED: PIPERACILLIN/TAZOBACTAM 2.25 GM VIAL IVPB ONE ×4 (03:02→20:54)
[2018-11-28] MEDS ORDERED: DEXTROSE 5%-WATER - 50 ML IVPB ONE ×4 (03:03→20:55)
[2018-11-28] MEDS: PIPERACILLIN/TAZOB 2.25 GM 2.25 GM in DEXTROSE 5%-WATER - 50 ML IVPB SCH ×4 (03:09→21:35)
--- NOTE | 2018-11-28 08:28 | PN ---
Progress Note, Physician History of Present Illness: doing well feels much better - Current Medication List Current Medications: Active Medications Allopurinol (Zyloprim -) 300 mg PO DAILY [facility] Last Admin: 11/27/18 10:32 Dose: 300 mg Aspirin (Asa -) 81 mg PO DAILY [facility] [place] Last Admin: 11/27/18 10:32 Dose: 81 mg Calcium/Vitamin D (Oscal 250 Mg+D -) 1 tab PO MOWEFR [facility] [place] Last Admin: 11/26/18 09:51 Dose: 1 tab Emollient Ointment (Aquaphor -) 1 applic TP BID [facility] [place] Last Admin: 11/27/18 21:27 Dose: 1 applic Folic Acid (Folic Acid -) 1 mg PO DAILY [facility] [place] Last Admin: 11/27/18 10:32 Dose: 1 mg Furosemide (Lasix -) 40 mg PO DAILY [facility] [place] Last Admin: 11/27/18 10:32 Dose: 40 mg Heparin Sodium (Porcine) (Heparin -) 5,000 unit SQ BID [facility] [place] Last Admin: 11/27/18 21:20 Dose: 5,000 unit Piperacillin Sod/Tazobactam (Sod 2.25 gm/ Dextrose) 50 mls @ 100 mls/hr IVPB Q6H-IV [facility] [place]; Protocol Last Admin: 11/28/18 03:09 Dose: 100 mls/hr Metoprolol Succinate (Toprol Xl -) 25 mg PO DAILY [facility] [place] Last Admin: 11/27/18 10:32 Dose: 25 mg Multivitamins/Minerals/Vitamin C (Tab-A-Vit -) 1 tab PO DAILY [facility] [place] Last Admin: 11/27/18 10:32 Dose: 1 tab - Objective Vital Signs: Vital Signs Temperature 97.9 F 11/28/18 06:35 Pulse Rate 85 11/28/18 06:35 Respiratory Rate 18 11/28/18 06:35 Blood Pressure 127/76 11/28/18 06:35 O2 Sat by Pulse Oximetry (%) 98 11/27/18 21:00 Constitutional: Yes: No Distress, Calm Neck: Yes: Supple, Trachea Midline Cardiovascular: Yes: Regular Rate and Rhythm Respiratory: Yes: Regular, CTA Bilaterally Gastrointestinal: Yes: Normal Bowel Sounds, Soft Musculoskeletal: Yes: WNL Extremities: Yes: Other Wound/Incision: Yes: Dressing Dry and Intact Neurological: Yes: Alert, Oriented Psychiatric: Yes: Alert, Oriented Labs: CBC, BMP 11/26/18 07:33 11/26/18 07:33 INR, PTT INR 1.36 (0.83-1.09) H 11/21/18 09:30 Assessment/Plan Problem List - Problems (1) Wound infection Code(s): T14.8XXA - OTHER INJURY OF UNSPECIFIED BODY REGION, INITIAL ENCOUNTER; L08.9 - LOCAL INFECTION OF THE SKIN AND SUBCUTANEOUS TISSUE, UNSP (2) Lymphedema of both lower extremities Code(s): I89.0 - LYMPHEDEMA, NOT ELSEWHERE CLASSIFIED (3) Diastolic CHF Code(s): I50.30 - UNSPECIFIED DIASTOLIC (CONGESTIVE) HEART FAILURE (4) Cellulitis and abscess of leg will change to oral Code(s): L02.419 - CUTANEOUS ABSCESS OF LIMB, UNSPECIFIED; L03.119 - CELLULITIS OF UNSPECIFIED PART OF LIMB (5) Morbid obesity Code(s): E66.01 - MORBID (SEVERE) OBESITY DUE TO EXCESS CALORIES (6) Bilateral lower leg cellulitis Code(s): L03.116 - CELLULITIS OF LEFT LOWER LIMB; L03.115 - CELLULITIS OF RIGHT LOWER LIMB plan continue abx wound care rest as per the team will change to oral abx tomorrow
[2018-11-28] MEDS ORDERED: PT OWN MED DRAWER 7, Y5N ONE (10:04)
[2018-11-28] MEDS: HEPARIN NA (PORCINE) 5,000 UNITS/ML 1ML VIAL SQ SCH (10:07)
[2018-11-28] MEDS: ASPIRIN 81 MG CHEWABLE TABLETS PO SCH (10:07)
[2018-11-28] MEDS: FUROSEMIDE 40 MG TABLET (FP) PO SCH (10:07)
[2018-11-28] MEDS: ALLOPURINOL 300 MG TABLET (FP) PO SCH (10:07)
[2018-11-28] MEDS: FOLIC ACID 1 MG TABLET (FP) PO SCH (10:07)
[2018-11-28] MEDS: CALCIUM 250MG/VIT-D 125 UNITS 1 COMBO TABLET PO SCH (10:07)
[2018-11-28] MEDS: metoPROLOL SUCCINATE 25 MG TAB.SR.24H (FP) PO SCH (10:07)
[2018-11-28] MEDS: MULTIVITAMINS (DAILY MVI) TABLET (FP) PO SCH (10:07)
[2018-11-28] MEDS: MINERAL OIL/PET HY-PHL TOPICAL OINTMENT 454 GM JAR TP SCH ×2 (10:09→21:35)
--- NOTE | 2018-11-28 17:42 | PN ---
Progress Note, Physician History of Present Illness: doing well - Current Medication List Current Medications: Active Medications Allopurinol (Zyloprim -) 300 mg PO DAILY [facility] Last Admin: 11/28/18 10:07 Dose: 300 mg Aspirin (Asa -) 81 mg PO DAILY [facility] Last Admin: 11/28/18 10:07 Dose: 81 mg Calcium/Vitamin D (Oscal 250 Mg+D -) 1 tab PO MOWEFR [facility] Last Admin: 11/28/18 10:07 Dose: 1 tab Emollient Ointment (Aquaphor -) 1 applic TP BID [facility] Last Admin: 11/28/18 10:09 Dose: 1 applic Folic Acid (Folic Acid -) 1 mg PO DAILY [facility] Last Admin: 11/28/18 10:07 Dose: 1 mg Furosemide (Lasix -) 40 mg PO DAILY [facility] Last Admin: 11/28/18 10:07 Dose: 40 mg Heparin Sodium (Porcine) (Heparin -) 5,000 unit SQ BID [facility] Last Admin: 11/28/18 10:07 Dose: 5,000 unit Piperacillin Sod/Tazobactam (Sod 2.25 gm/ Dextrose) 50 mls @ 100 mls/hr IVPB Q6H-IV [facility]; Protocol Last Admin: 11/28/18 15:46 Dose: 100 mls/hr Metoprolol Succinate (Toprol Xl -) 25 mg PO DAILY [facility] Last Admin: 11/28/18 10:07 Dose: 25 mg Multivitamins/Minerals/Vitamin C (Tab-A-Vit -) 1 tab PO DAILY [facility] Last Admin: 11/28/18 10:07 Dose: 1 tab - Objective Vital Signs: Vital Signs Temperature 98 F 11/28/18 15:34 Pulse Rate 78 11/28/18 15:34 Respiratory Rate 18 11/28/18 15:34 Blood Pressure 130/78 11/28/18 15:34 O2 Sat by Pulse Oximetry (%) 98 11/27/18 21:00 Constitutional: Yes: No Distress HENT: Yes: Atraumatic Neck: Yes: Supple Cardiovascular: Yes: Regular Rate and Rhythm Respiratory: Yes: CTA Bilaterally Gastrointestinal: Yes: Normal Bowel Sounds Extremities: Yes: Other (b/llex cellulitis) Neurological: Yes: Alert, Oriented Labs: CBC, BMP 11/26/18 07:33 11/26/18 07:33 INR, PTT INR 1.36 (0.83-1.09) H 11/21/18 09:30 Problem List - Problems (1) Wound infection Assessment/Plan: iv abx woud care dressing change Code(s): T14.8XXA - OTHER INJURY OF UNSPECIFIED BODY REGION, INITIAL ENCOUNTER; L08.9 - LOCAL INFECTION OF THE SKIN AND SUBCUTANEOUS TISSUE, UNSP (2) Lymphedema of both lower extremities Code(s): I89.0 - LYMPHEDEMA, NOT ELSEWHERE CLASSIFIED (3) Diastolic CHF Assessment/Plan: continue home meds Code(s): I50.30 - UNSPECIFIED DIASTOLIC (CONGESTIVE) HEART FAILURE (4) Cellulitis and abscess of leg Assessment/Plan: iv abx wound care id consult Code(s): L02.419 - CUTANEOUS ABSCESS OF LIMB, UNSPECIFIED; L03.119 - CELLULITIS OF UNSPECIFIED PART OF LIMB (5) Morbid obesity Code(s): E66.01 - MORBID (SEVERE) OBESITY DUE TO EXCESS CALORIES (6) Bilateral lower leg cellulitis Code(s): L03.116 - CELLULITIS OF LEFT LOWER LIMB; L03.115 - CELLULITIS OF RIGHT LOWER LIMB
[2018-11-29] MEDS ORDERED: DEXTROSE 5%-WATER - 50 ML IVPB ONE ×2 (01:05→09:39)
[2018-11-29] MEDS ORDERED: PIPERACILLIN/TAZOBACTAM 2.25 GM VIAL IVPB ONE ×2 (01:05→09:39)
[2018-11-29] MEDS: PIPERACILLIN/TAZOB 2.25 GM 2.25 GM in DEXTROSE 5%-WATER - 50 ML IVPB SCH ×2 (02:05→10:27)
[2018-11-29] MEDS: metoPROLOL SUCCINATE 25 MG TAB.SR.24H (FP) PO SCH (10:26)
[2018-11-29] MEDS: MULTIVITAMINS (DAILY MVI) TABLET (FP) PO SCH (10:26)
[2018-11-29] MEDS: ALLOPURINOL 300 MG TABLET (FP) PO SCH (10:26)
[2018-11-29] MEDS: FUROSEMIDE 40 MG TABLET (FP) PO SCH (10:26)
[2018-11-29] MEDS: FOLIC ACID 1 MG TABLET (FP) PO SCH (10:26)
[2018-11-29] MEDS: ASPIRIN 81 MG CHEWABLE TABLETS PO SCH (10:26)
[2018-11-29] MEDS: MINERAL OIL/PET HY-PHL TOPICAL OINTMENT 454 GM JAR TP SCH (10:34)
--- NOTE | 2018-11-29 14:53 | DS ---
Physical Examination Vital Signs: Vital Signs Temperature 98.1 F 11/29/18 10:00 Pulse Rate 84 11/29/18 10:00 Respiratory Rate 20 11/29/18 10:00 Blood Pressure 120/80 11/29/18 10:00 O2 Sat by Pulse Oximetry (%) 98 11/28/18 21:00 Constitutional: Yes: No Distress HENT: Yes: Atraumatic Neck: Yes: Supple Cardiovascular: Yes: Regular Rate and Rhythm Respiratory: Yes: CTA Bilaterally Gastrointestinal: Yes: Normal Bowel Sounds Extremities: Yes: Other (b/l porfirio cellulitis...improving) Labs: CBC, BMP 11/26/18 07:33 11/26/18 07:33 Discharge Summary Reason For Visit: LYMPHEDEMA OF BOTH LOWER EXTREMITIES MRSA Current Active Problems Wound infection (Acute) Lymphedema of both lower extremities (Chronic) Condition: Fair - Instructions Diet, Activity, Other Instructions: follow up with wound care clinic please call at [phone] for appointment. Disposition: HOME - Home Medications Comprehensive Discharge Medication List: Ambulatory Orders Furosemide [Lasix] 40 mg PO DAILY 06/24/16 Allopurinol 300 mg PO DAILY 06/07/18 Folic Acid 1 mg PO DAILY 06/07/18 Multivitamin 1 tab PO DAILY 06/07/18 Oscal 250 mg+D - 1 tab PO MOWEFR 06/07/18 Aspirin [ASA -] 81 mg PO DAILY #30 tab.chew 06/23/18 Metoprolol Succinate [Toprol XL -] 25 mg PO DAILY #30 tab.sr.24h 06/23/18 Amoxicillin/Potassium Clav [Augmentin 875-125 Tablet] 1 each PO BID #14 tablet 11/28/18
--- NOTE | 2018-11-29 15:06 | PN ---
Progress Note, Physician - Current Medication List Current Medications: Active Medications Allopurinol (Zyloprim -) 300 mg PO DAILY [facility] Last Admin: 11/29/18 10:26 Dose: 300 mg Aspirin (Asa -) 81 mg PO DAILY [facility] Last Admin: 11/29/18 10:26 Dose: 81 mg Calcium/Vitamin D (Oscal 250 Mg+D -) 1 tab PO MOWEFR [facility] Last Admin: 11/28/18 10:07 Dose: 1 tab Emollient Ointment (Aquaphor -) 1 applic TP BID [facility] Last Admin: 11/29/18 10:34 Dose: 1 applic Folic Acid (Folic Acid -) 1 mg PO DAILY [facility] Last Admin: 11/29/18 10:26 Dose: 1 mg Furosemide (Lasix -) 40 mg PO DAILY [facility] Last Admin: 11/29/18 10:26 Dose: 40 mg Piperacillin Sod/Tazobactam (Sod 2.25 gm/ Dextrose) 50 mls @ 100 mls/hr IVPB Q6H-IV [facility]; Protocol Last Admin: 11/29/18 10:27 Dose: 100 mls/hr Metoprolol Succinate (Toprol Xl -) 25 mg PO DAILY [facility] Last Admin: 11/29/18 10:26 Dose: 25 mg Multivitamins/Minerals/Vitamin C (Tab-A-Vit -) 1 tab PO DAILY [facility] Last Admin: 11/29/18 10:26 Dose: 1 tab - Objective Vital Signs: Vital Signs Temperature 98.1 F 11/29/18 10:00 Pulse Rate 84 11/29/18 10:00 Respiratory Rate 20 11/29/18 10:00 Blood Pressure 120/80 11/29/18 10:00 O2 Sat by Pulse Oximetry (%) 98 11/28/18 21:00 Labs: CBC, BMP 11/26/18 07:33 11/26/18 07:33 INR, PTT INR 1.36 (0.83-1.09) H 11/21/18 09:30
[2018-11-29 15:24] VITALS: BP 116/76; PULSE 78; TEMP 98
== END 2018-11-29 17:49 | disposition home or self-care (01) | DRG 300 ==
LOC: JER 08:21 → JERBED 14:28 → J8W 11-22 01:13
PROVIDERS: ADMIT Internal Medicine; ATTEND Internal Medicine
DX: I83.018 Varicose veins of right lower extremity with ulcer other part of lower leg (principal); L03.115 Cellulitis of right lower limb; L97.818 Non-pressure chronic ulcer of other part of right lower leg with other specified severity; L97.828 Non-pressure chronic ulcer of other part of left lower leg with other specified severity; I50.30 Unspecified diastolic (congestive) heart failure; L03.116 Cellulitis of left lower limb; I83.028 Varicose veins of left lower extremity with ulcer other part of lower leg; I11.0 Hypertensive heart disease with heart failure; I89.0 Lymphedema, not elsewhere classified; L08.9 Local infection of the skin and subcutaneous tissue, unspecified; I27.20 Pulmonary hypertension, unspecified; E66.8 Other obesity; Z68.33 Body mass index [BMI] 33.0-33.9, adult; I45.81 Long QT syndrome; I48.91 Unspecified atrial fibrillation; N28.9 Disorder of kidney and ureter, unspecified
CPT/HCPCS: 36415; 80048; 80053; 82962; 83036; 85025; 85610; 85651; 86140; 87040; 93005; 93010; 99285-25; J1644

== ENCOUNTER 2019-02-15 09:30 | Inpatient (IN) | payer BC, OTHER ==
--- NOTE | 2019-02-15 10:59 | PDOC ---
History of Present Illness - General Chief Complaint: Edema Stated Complaint: EDEMA/SWOLLEN LEGS Time Seen by Provider: 02/15/19 10:11 History Source: Patient, Unavil. due to pt. cond. - History of Present Illness Initial Comments: 02/15/19 11:00 58y M history of CHF, afib (not on a/c), hypertension, chronic venous stasis ulcers secondary to lymphedema presents with complaint of scrotal swelling. Patient notes that he is been having lower extremity edema since childhood he sees wound care for dressing changes. Today he was at wound care when he mentioned that he was having scrotal swelling so was sent to the ER for evaluation. The patient denies any pain to the scrotum however he states that it is so swollen that he is unable to control his urination. Patient denies any fever, chills, dysuria, leg pain, shortness of breath, chest pain, abdominal pain, diarrhea, dyspnea on exertion, orthopnea, nausea, vomiting, palpitations, focal weakness. PMD/Cards @ [facility]/wound - Dr. Samira Eric Is this a multiple visit Asthma Patient?: No Past History - Past Medical History Allergies/Adverse Reactions: Allergies Allergy/AdvReac Type Severity Reaction Status Date / Time Egg Derived Allergy Unknown Verified 02/15/19 09:35 [place] And Derivatives Allergy Verified 02/15/19 09:35 lactose AdvReac Verified 02/15/19 09:35 Home Medications: Ambulatory Orders Furosemide [Lasix] 40 mg PO DAILY 06/24/16 Allopurinol 300 mg PO DAILY 06/07/18 Folic Acid 1 mg PO DAILY 06/07/18 Aspirin [ASA -] 81 mg PO DAILY #30 tab.chew 06/23/18 Sodium Polystyrene Sulfonate [Kayexalate -] 30 gm PO Q72H 12/21/18 Diltiazem HCl [Diltiazem 24Hr ER (Cd)] 180 mg PO DAILY 02/15/19 Ferric Citrate [Auryxia] 210 mg PO BID 02/15/19 Anemia: No Asthma: No Cancer: No Cardiac Disorders: No CVA: No COPD: No CHF: Yes DVT: No Dementia: No Diabetes: No GI Disorders: No Disorders: No HTN: Yes Hypercholesterolemia: No Liver Disease: No Seizures: No Thyroid Disease: No - Surgical History Abdominal Surgery: No Appendectomy: Yes Cardiac Surgery: No Cholecystectomy: No Lung Surgery: No Neurologic Surgery: No Orthopedic Surgery: No - Psycho Social/Smoking Cessation Hx Smoking Status: No Smoking History: Unknown if ever smoked Have you smoked in the past 12 months: No Number of Cigarettes Smoked Daily: 0 Hx Alcohol Use: No Drug/Substance Use Hx: No Substance Use Type: None Hx Substance Use Treatment: No Review of Systems - Review of Systems Able to Perform ROS?: Yes Comments:: 02/15/19 11:04 Constitutional - no reported Fever, Chills, HEENT: no reported vision changes, sore throat Respiratory: no reported cough, sob, hemoptysis Cardiac: no reported chest pain, palpitations, light headedness, leg swelling Abd/GI: no reported abd pain, nausea, vomiting, blood per rectum, melena, diarrhea : +Scrotal swelling no reported dysuria, frequency, discharge Musculskelatal - +leg swelling, nono reported back pain, joint swelling skin - no reported bruising, erythema, rash neurological: no reported headache, numbness, focal weakness, tingling, ataxia, hematologic: no reported easy bruising, easy bleeding *Physical Exam - Vital Signs Last Vital Signs Temp Pulse Resp BP Pulse Ox 97.9 F 113 H 22 H 141/92 98 02/15/19 09:35 02/15/19 09:35 02/15/19 09:35 02/15/19 09:35 02/15/19 09:35 - Physical Exam Comments: 02/15/19 11:04 GENERAL: The patient is awake, alert, and fully oriented, Nontoxic - in no acute distress. HEAD: Normocephalic, atraumatic. EYES: extraocular movements intact, sclera anicteric, conjunctiva clear. ENT: Normal voice, Moist mucous membranes. NECK: Normal range of motion, supple LUNGS: Breath sounds equal, clear to auscultation bilaterally. No wheezes, no rhonchi, no rales. HEART: slightly tachycardic,irregular : significant scrotal edema, no focal tenderness or erythema ABDOMEN: Soft, nontender, No guarding, no rebound. No CVA tenderness EXTREMITIES: Normal range of motion, bl chronic venous changes with dressings in place, pitting edema to thigh, NEUROLOGICAL: No facial assymetry, Normal speech, PSYCH: Normal mood, normal affect. SKIN: Warm, Dry, normal turgor, Heart Score/ECG Review - ECG Impressions Comment:: 02/15/19 11:06 Twelve-lead EKG was performed and reviewed by me. Irregularly irregular, rate of 110 Left axis deviation T wave abnormality, QTc 525 ED Treatment Course - LABORATORY CBC & Chemistry Diagram: 02/15/19 11:00 02/15/19 11:00 - RADIOLOGY Radiology Studies Ordered: Category Date Time Status CXRPORT [CHEST X-RAY PORTABLE*] [RAD] Stat Radiology 02/15/19 10:35 Ordered Medical Decision Making - Medical Decision Making 02/15/19 12:20 labs reviewed noted for ckd bnp elevated to 17k, would like to give lasix, consider admisison for further fluid management 02/15/19 12:32 02/15/19 15:01 will admit pt for further management of chf/anasarca case discussed with dr. whitfield accepted for admission for further management of chf will be admitted under dr. louis service Case discussed in detail with admitting physician including history, physical exam and ancillary studies. Admitting physician has assumed care for the patient, will follow all pending diagnostics and will complete the evaluation and treatment. Discharge - Discharge Information Problems reviewed: Yes Clinical Impression/Diagnosis: Lymphedema of both lower extremities, Anasarca Congestive heart failure Qualifiers: Heart failure type: other Qualified Code(s): I50.9 - Heart failure, unspecified Condition: Stable - Admission Yes - Follow up/Referral - Patient Discharge Instructions - Post Discharge Activity
[2019-02-15 11:20] LABS: BASO % 0.9 % (0-2.0); EOS % 1.7 % (0-4.5); HEMATOCRIT 27.6 % (35.4-49); HEMOGLOBIN 9.1 GM/dL (11.7-16.9); LYMPH % 12.7 % (8-40); MCH 27.7 pg (25.7-33.7); MCHC 32.9 g/dl (32.0-35.9); MEAN CELL VOLUME 84.3 fl (80-96); MEAN PLT VOLUME 9.5 fl (7.5-11.1); MONO % 9.4 % (3.8-10.2); NEUT % 75.3 % (42.8-82.8); PLATELET COUNT 158 K/MM3 (134-434); RBC 3.27 M/mm3 (4.00-5.60); RDW 19.3 % (11.9-15.9); WHITE BLOOD COUNT 5.2 K/mm3 (4.0-10.0)
[2019-02-15 12:00] LABS: ALBUMIN 2.5 g/dl (3.4-5.0); BLOOD UREA NITROGEN 33.5 mg/dL (7-18); CALCIUM 7.6 mg/dL (8.5-10.1); CREATININE 2.5 mg/dL (0.55-1.3); N-TERMINAL BNP 17194.6 pg/ml (5-125); POTASSIUM 4.5 mmol/L (3.5-5.1); TOT PROT 8.2 g/dl (6.4-8.2)
[2019-02-15] MEDS ORDERED: FUROSEMIDE 40 MG/4 ML INJECTABLE VIAL IVPUSH ONE (12:31)
[2019-02-15] MEDS ORDERED: FUROSEMIDE 40 MG/4 ML INJECTABLE VIAL ONE (13:30)
[2019-02-15] MEDS ORDERED: HEPARIN NA (PORCINE) 5,000 UNITS/ML 1ML VIAL SQ SCH (14:00)
--- NOTE | 2019-02-15 14:21 | EKG ---
Test Reason : Blood Pressure : / mmHG Vent. Rate : 110 BPM Atrial Rate : 110 BPM P-R Int : 000 ms QRS Dur : 106 ms QT Int : 388 ms P-R-T Axes : 000 -44 131 degrees QTc Int : 525 ms ATRIAL FIBRILLATION WITH RAPID VENTRICULAR RESPONSE LEFT AXIS DEVIATION CANNOT RULE OUT ANTERIOR INFARCT (CITED ON OR BEFORE 21-NOV-2018) T WAVE ABNORMALITY, CONSIDER LATERAL ISCHEMIA PROLONGED QT ABNORMAL ECG Confirmed by MARITZA ORANTES MD ([id number]) on 02/15/2019 2:20:58 PM Referred By: Confirmed By:MARITZA ORANTES MD
[2019-02-15] MEDS ORDERED: SODIUM POLYSTYRENE SULFONATE 15 GM/60 ML BOTTLE PO SCH (16:00)
[2019-02-15] MEDS ORDERED: METOPROLOL TARTRATE 25 MG TABLET (FP) PO ONE (17:43)
--- NOTE | 2019-02-15 18:36 | CON.CARD ---
Consult Consult Specialty:: Cardiology Referred by:: Hospitalist Medicine Reason for Consultation:: Scrotal edema - History of Present Illness Chief Complaint: Dyspnea, scrotal edema History of Present Illness: 58y M history of diastolic CHF, afib (not on a/c), hypertension, chronic venous stasis ulcers secondary to lymphedema, CKD III, anemia of CKD presents with complaint of scrotal swelling. Patient notes that he is been having lower extremity edema since childhood he sees wound care for dressing changes. Today he was at wound care when he mentioned that he was having scrotal swelling with mild dyspnea on exertion so was sent to the ER for evaluation. The patient denies any pain to the scrotum however he states that it is so swollen that he is unable to control his urination. Patient denies any fever, chills, dysuria, leg pain, shortness of breath, chest pain, abdominal pain, diarrhea, orthopnea, nausea, vomiting, palpitations, focal weakness, near or true syncope. PMD: Cecilio/Jane @ [facility] - Clem Barry MD Vascular/wound - Dr. Samira Eric Renal: Dr. Gayle 12/25/2018 EMR TSH 6.14 FT4 1.63 Na 145 K 45 BUN 39 Cr 2.2 Glu 73 WBC 5.1 Hgb 8.3 Plt 198 Ha1c 5.4% - History Source History Provided By: Patient Limitations to Obtaining History: No Limitations - Past Medical History Cardio/Vascular: Yes: CHF, HTN, Pulmonary Hypertension, Other Renal/: Yes: Renal Inusuff Musculoskeletal: Yes: Other Additional Medical History: chronic lymphedema sees Dr Eric at the wound clinic Admitted for increasing LE EDEMA - Alcohol/Substance Use Hx Alcohol Use: No History of Substance Use: reports: None - Smoking History Smoking history: Unknown if ever smoked Have you smoked in the past 12 months: No Aproximately how many cigarettes per day: 0 - Social History Usual Living Arrangement: With Parent History of Recent Travel: No Home Medications - Allergies Allergies/Adverse Reactions: Allergies Allergy/AdvReac Type Severity Reaction Status Date / Time Egg Derived Allergy Unknown Verified 02/15/19 09:35 [place] And Derivatives Allergy Verified 02/15/19 09:35 lactose AdvReac Verified 02/15/19 09:35 - Home Medications Home Medications: Ambulatory Orders Furosemide [Lasix] 40 mg PO DAILY 03/10/17 Allopurinol 300 mg PO DAILY 06/07/18 Folic Acid 1 mg PO DAILY 06/07/18 Aspirin [ASA -] 81 mg PO DAILY #30 tab.chew 06/23/18 Sodium Polystyrene Sulfonate [Kayexalate -] 30 gm PO Q72H 12/21/18 Diltiazem HCl [Diltiazem 24Hr ER (Cd)] 180 mg PO DAILY 02/15/19 Ferric Citrate [Auryxia] 210 mg PO BID 02/15/19 Review of Systems - Review of Systems Cardiovascular: reports: Edema Genitourinary: reports: Testicular Swelling Vital Signs: Vital Signs Temperature 97.7 F 02/15/19 17:52 Pulse Rate 97 H 02/15/19 17:52 Respiratory Rate 22 H 02/15/19 09:35 Blood Pressure 133/95 02/15/19 17:52 O2 Sat by Pulse Oximetry (%) 98 02/15/19 17:52 Constitutional: Yes: No Distress, Calm Neck: Yes: Supple Respiratory: Yes: Regular, Diminished Gastrointestinal: Yes: Normal Bowel Sounds, Soft Renal/: Yes: Scrotal Edema Cardiovascular: Yes: Tachycardia, Pulse Irregular JVD: No Carotid Bruit: No Heart Sounds: Yes: S1, S2 Murmur: Yes: Systolic Murmur, Grade 1 Edema: Yes Edema: LLE: 2+, RLE: 2+ Integumentary: Yes: Skin Tear, Venous Stasis Changes - Other Data Labs, Other Data: CBC, BMP 02/15/19 11:00 02/15/19 11:00 Troponin, BNP 02/15/19 11:00 B-Natriuretic Peptide 71953.6 H Troponin, BNP 02/15/19 11:00 B-Natriuretic Peptide 41033.6 H Afib @ 110 Ejection Fraction %: LVEF > or = 40 % Imaging - Results Chest X-ray: Report Reviewed (Congestion) Problem List - Problems (1) Paroxysmal atrial fibrillation with rapid ventricular response Code(s): I48.0 - PAROXYSMAL ATRIAL FIBRILLATION (2) Anasarca Code(s): R60.1 - GENERALIZED EDEMA (3) Congestive heart failure Code(s): I50.9 - HEART FAILURE, UNSPECIFIED Qualifiers: Heart failure type: diastolic Heart failure chronicity: acute on chronic Qualified Code(s): I50.33 - Acute on chronic diastolic (congestive) heart failure (4) Lymphedema of both lower extremities Code(s): I89.0 - LYMPHEDEMA, NOT ELSEWHERE CLASSIFIED (5) Renal insufficiency Code(s): N28.9 - DISORDER OF KIDNEY AND URETER, UNSPECIFIED (6) Anemia Code(s): D64.9 - ANEMIA, UNSPECIFIED Qualifiers: Anemia type: due to chronic kidney disease Chronic kidney disease stage: stage 3 (moderate) Qualified Code(s): N18.3 - Chronic kidney disease, stage 3 (moderate); D63.1 - Anemia in chronic kidney disease (7) Diastolic CHF Code(s): I50.30 - UNSPECIFIED DIASTOLIC (CONGESTIVE) HEART FAILURE Qualifiers: Heart failure chronicity: acute on chronic Qualified Code(s): I50.33 - Acute on chronic diastolic (congestive) heart failure (8) Idiopathic chronic venous hypertension of both lower extremities with inflammation Code(s): I87.323 - CHRONIC VENOUS HTN W INFLAMMATION OF BILATERAL LOW EXTRM Assessment/Plan 03/05/2018 Renal US: No hydro or calculi, bilateral increased renal cortical echogenicity c/w chronic renal parenchymal disease 1. Acute on chronic diastolic heart failure 2. Paroxysmal afib with RVR [id number] 3. Hypertension 4. CKD III 5. Anemia of CKD P:1. IV diuresis with monitor diuretic response, renal fxn and electrolytes 2. Change ASA to Eliquis 5 bid (wt>60 Kg, age<80, Cr>1.5) given elevated risk score 3. Continue Cardizem CD 180 qd, LEAH-I/ARB once renal fxn and K stable 4. F/u echocardiogram to assess ventricular and valve fxn 5. Thank you for consultative opportunity, eventual f/u with Dr. Clem Barry of [facility] as outpatient
[2019-02-15] MEDS: SODIUM POLYSTYRENE SULFONATE 15 GM/60 ML BOTTLE PO SCH (18:57)
--- NOTE | 2019-02-15 19:59 | PN ---
Teaching Attending Note Name of Resident: Azucena Ibarra ATTENDING PHYSICIAN STATEMENT I saw and evaluated the patient. I reviewed the resident's note and discussed the case with the resident. I agree with the resident's findings and plan as documented. SUBJECTIVE: CC: LE and scrotal edema HPI : 58 y/o man with h/o lymphedema, diastolic CHF, A fib, HTN, CKD III and other medical problems who presented with increased LE and scrotal edema . No change in meds or salt intake at home, compliant with his meds. he does nto specify when his swelling started to worsen up to his thighs and scrotum .he denies SOB although he was witnessed to be labored when he walked . he went to wound care and was sent directly here. his legs get wrapped once a week OBJECTIVE: NAd , no facial droop, EOMI. MMM CV: irreg irreg. no MRG Lungs: CTAb Abd: soft, NT, ND , NL BS Ext : pitting edema on thighs and scrotum. legs with extensive wounds with serosabnguinous discharge on gauze. no tenderness. no ulcers on feet. thick scaly skin on feet. : enlarged scrotum with edema and no erythema. unable to feel testicles. inverted penis. erythema and moist edema in groins and sides ofn the scrotum EKG : L axis, A fib, TWI in I, AVL. QTc 525 ASSESSMENT AND PLAN: 58 y/o man with h/o lymphedema, diastolic CHF, A fib, HTN, CKD III and other medical problems who presented with increased LE and scrotal edema . 1- LE edema , due to acute diastolic CHF. triger is not clear but could be the rapid a fib - IV lasix 40 daILY - STRICT i&o AND WEIGHT - CONT cardizem . - echo - salt restriction and fluid restriction . - last echo form 07/03 reviewed. 2- A fib with RVR: - give one dose of metoprolol 12.g then cont his cardizem. can increase dose if needed - appreciate Card input. Eliquis started instead of asa 3- Tinea cruris : start Nystatin powder 4- H/o CKD: Cr at base line 5- Prolonged QTC 5- HLOC . tele
--- NOTE | 2019-02-15 20:12 | HP ---
CHIEF COMPLAINT: Swelling PCP: PCP at [facility] HISTORY OF PRESENT ILLNESS: 58M with PMH of CHF, afib (not on Anticoagulation), HTN, chronic venous stasis ulcers secondary to lymphedema who presents today with increasing swelling of thighs. Patient notes that he has had increased swelling of his legs over the course of this week. He presented to wound care clinic today and they noticed increased swelling of his upper legs so they sent him to the Emergency department. Patient notes that he also has scrotal swelling, which he has been trying to obtain urology appointment for. He denies any chest pain, shortness of breath, orthopnea, pain in the extremities, increased difficulty ambulating, dysuria, or hematuria. He has had no change in diet, is compliant with his medications. ER course was notable for: (1)Chest x-ray was done- showed some vascular congestion, no fluid in lungs (2)EKG- Tachycardia, afib with rvr (3)80 MG IV of Lasix given, 1L urine output by the time I examined him. 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 Lives at home with who is also disabled. Allergies Egg Derived Allergy (Unknown, Verified 02/15/19 09:35) [place] And Derivatives Allergy (Verified 02/15/19 09:35) lactose Adverse Reaction (Verified 02/15/19 09:35) HOME MEDICATIONS: Home Medications Medication Instructions Recorded Furosemide [Lasix] 40 mg PO DAILY 06/24/16 Allopurinol 300 mg PO DAILY 06/07/18 Folic Acid 1 mg PO DAILY 06/07/18 Aspirin [ASA -] 81 mg PO DAILY #30 tab.chew 06/23/18 Sodium Polystyrene Sulfonate 30 gm PO Q72H 12/21/18 [Kayexalate -] Diltiazem HCl [Diltiazem 24Hr ER 180 mg PO DAILY 02/15/19 (Cd)] Ferric Citrate [Auryxia] 210 mg PO BID 02/15/19 REVIEW OF SYSTEMS In addition to above CONSTITUTIONAL: Absent: fever, chills, diaphoresis, generalized weakness, malaise, loss of appetite, weight change HEENT: Absent: rhinorrhea, nasal congestion, throat pain, throat swelling, difficulty swallowing, mouth swelling, ear pain, eye pain, visual changes CARDIOVASCULAR: irregular heart beat Absent: chest pain, syncope, palpitations lightheadedness, peripheral edema RESPIRATORY: Absent: cough, shortness of breath, dyspnea with exertion, orthopnea, wheezing, stridor, hemoptysis GASTROINTESTINAL: Absent: abdominal pain, abdominal distension, nausea, vomiting, diarrhea, constipation, melena, hematochezia GENITOURINARY: Absent: dysuria, frequency, urgency, hesitancy, hematuria, flank pain, genital pain NEUROLOGIC: Absent: headache, focal weakness or paresthesias, dizziness, unsteady gait, seizure, mental status changes, bladder or bowel incontinence PHYSICAL EXAMINATION Vital Signs - 24 hr 02/15/19 02/15/19 02/15/19 09:35 17:52 18:42 Temperature 97.9 F 97.7 F 97.5 F L Pulse Rate 113 H 113 H Pulse Rate [ 97 H Left Radial] Respiratory 22 H 22 H Rate Blood Pressure 141/92 159/103 H Blood Pressure 133/95 [Left Arm] O2 Sat by Pulse 98 98 100 Oximetry (%) GENERAL: Awake, alert, and fully oriented, in no acute distress. HEAD: Normal with no signs of trauma. EYES: Pupils equal, round and reactive to light, extraocular movements intact, sclera anicteric, conjunctiva clear.. NECK: Normal range of motion, supple LUNGS: Breath sounds equal, clear to auscultation bilaterally. No wheezes, and no crackles. HEART: irregular rate and rhythm. no murmurs appreciated. ABDOMEN: Soft, nontender, not distended, normoactive bowel sounds. Mass appears when he sits, disappears when he lays flat. MUSCULOSKELETAL: Normal range of motion at all joints. No bony deformities or tenderness. No CVA tenderness. UPPER EXTREMITIES: 2+ pulses, warm, well-perfused. No cyanosis. No clubbing. No peripheral edema. LOWER EXTREMITIES: 2+ pitting edema tracking up to scrotum. Dressing on lower extremities, no pus or blood seen. NEUROLOGICAL: Cranial nerves II-XII intact. Normal speech Laboratory Results - last 24 hr 02/15/19 02/15/19 11:00 11:00 WBC 5.2 RBC 3.27 L Hgb 9.1 L Hct 27.6 L MCV 84.3 MCH 27.7 MCHC 32.9 RDW 19.3 H Plt Count 158 D MPV 9.5 Absolute Neuts (auto) 3.9 Neutrophils % 75.3 Lymphocytes % 12.7 Monocytes % 9.4 Eosinophils % 1.7 Basophils % 0.9 Nucleated RBC % 0 Sodium 143 Potassium 4.5 Chloride 109 H Carbon Dioxide 30 Anion Gap 4 L BUN 33.5 H Creatinine 2.5 H Est GFR (CKD-EPI)AfAm 31.18 Est GFR (CKD-EPI)NonAf 26.90 Random Glucose 73 L Calcium 7.6 L Total Bilirubin 1.0 AST 25 ALT 13 Alkaline Phosphatase 208 H B-Natriuretic Peptide 35091.6 H Total Protein 8.2 Albumin 2.5 L ASSESSMENT/PLAN: 58M with PMH of CHF, afib (not on Anticoagulation), HTN, chronic venous stasis ulcers secondary to lymphedema presents with edema in the lower extremity and scrotum likely secondary to CHF exacerbation. 1) Lower Extremity Edema secondary to CHF exacerbation -Lasix 40 mg IV daily -Monitor In and Out -Tmm AM continue Cardizem 180 mg PO daily in -F/U Echo. Last echo in June 2018 showed EF of 35-40% -Sodium restricted diet, and fluid restriction 2)Afib with RVR -Not on anticoagulation medication at home -Rate control today with 12.5 mg PO at night, continue Cardizem in AM -Eliquis 5mg BID PO -Cardiology consulted, appreciate recs 3)Tinea Cruris -Nystatin powder 4)CKD stage 3 -Patient Creatinine is at baseline as per other visits F: No fluids, on restricted fluids. E: Monitor CMP N: Sodium controlled diet Dispo:admit to telemetry Visit type - Emergency Visit Emergency Visit: Yes ED Registration Date: 02/15/19 Care time: The patient presented to the Emergency Department on the above date and was hospitalized for further evaluation of their emergent condition. - New Patient This patient is new to me today: Yes Date on this admission: 02/15/19 - Critical Care Critical Care patient: No ATTENDING PHYSICIAN STATEMENT I saw and evaluated the patient. I reviewed the resident's note and discussed the case with the resident. I agree with the resident's findings and plan as documented. SUBJECTIVE: OBJECTIVE: ASSESSMENT AND PLAN:
[2019-02-15] MEDS: NYSTATIN POWDER 100,000 UNITS/GM - 15 GM TOPICAL POWDER TP SCH (21:51)
[2019-02-15] MEDS: APIXABAN 5 MG TABLET PO SCH (21:51)
[2019-02-15] MEDS ORDERED: PATIENT'S OWN MEDICATION (NON-FORMULARY) (Ferric Citrate [Auryxia] 210 MG) PO SCH (22:00)
[2019-02-16 07:42] LABS: BASO % 0.9 % (0-2.0); EOS % 2.6 % (0-4.5); HEMATOCRIT 28.5 % (35.4-49); HEMOGLOBIN 8.9 GM/dL (11.7-16.9); LYMPH % 14.4 % (8-40); MCH 26.6 pg (25.7-33.7); MCHC 31.3 g/dl (32.0-35.9); MEAN CELL VOLUME 85.2 fl (80-96); MEAN PLT VOLUME 9.6 fl (7.5-11.1); MONO % 12.2 % (3.8-10.2); NEUT % 69.9 % (42.8-82.8); PLATELET COUNT 168 K/MM3 (134-434); RBC 3.35 M/mm3 (4.00-5.60); RDW 19.8 % (11.9-15.9); WHITE BLOOD COUNT 4.8 K/mm3 (4.0-10.0)
[2019-02-16 08:08] LABS: ALBUMIN 2.5 g/dl (3.4-5.0); BILIRUBIN,TOTAL 0.9 mg/dL (0.2-1); BLOOD UREA NITROGEN 35.9 mg/dL (7-18); CALCIUM 7.8 mg/dL (8.5-10.1); CREATININE 2.6 mg/dL (0.55-1.3); MAGNESIUM 1.7 mg/dL (1.8-2.4); PHOSPHOROUS 3.8 mg/dL (2.5-4.9); POTASSIUM 4.5 mmol/L (3.5-5.1); TOT PROT 7.5 g/dl (6.4-8.2)
--- NOTE | 2019-02-16 09:45 | PN ---
Physical Exam: SUBJECTIVE: Patient seen this morning and without complaints. No acute events overnight OBJECTIVE: Vital Signs Temperature 97.9 F 02/16/19 06:00 Pulse Rate 97 H 02/16/19 06:00 Respiratory Rate 20 02/16/19 06:00 Blood Pressure 122/79 02/16/19 06:00 O2 Sat by Pulse Oximetry (%) 97 02/15/19 21:00 GENERAL: The patient is awake, alert, and fully oriented, in no acute distress. Obese HEAD: Normal with no signs of trauma. EYES: PERRL, extraocular movements intact, ENT: moist mucous membranes. LUNGS: Breath sounds equal, clear to auscultation bilaterally, no wheezes, no crackles, no accessory muscle use. HEART: Regular rate and rhythm, S1, S2 without murmur, rub or gallop. ABDOMEN: Soft, nontender, nondistended, normoactive bowel sounds, : scrotal swelling, less then yesterday EXTREMITIES: lower extremities completely wrapped, ulcers at the top of his legs clean and dry SKIN: Warm, dry, normal turgor, no rashes or lesions noted CBC, BMP 02/16/19 06:45 02/16/19 06:45 Active Medications Allopurinol (Zyloprim -) 300 mg PO DAILY [facility] Apixaban (Eliquis -) 5 mg PO BID [facility] Last Admin: 02/15/19 21:51 Dose: 5 mg Diltiazem HCl (Cardizem Cd -) 180 mg PO DAILY [facility] Folic Acid (Folic Acid -) 1 mg PO DAILY [facility] Furosemide (Lasix Injection -) 40 mg IVPUSH DAILY [facility] Non-Formulary Medication (Ferric Citrate [Auryxia]) 210 mg PO BID [facility] Nystatin (Nystop Powder -) 1 applic TP BID [facility] Last Admin: 02/15/19 21:51 Dose: 1 applic Sodium Polystyrene Sulfonate (Kayexalate -) 30 gm PO MoFr [facility] Last Admin: 02/15/19 18:57 Dose: 30 gm ASSESSMENT/PLAN: #scrotal edema - 2/2 to CHF exacerbation vs anasarca from lymphedena, swelling decreased from yesterday - f/u ECHO on monday - continue lasix 40 IV daily - weight 600, I's and O's - followed by Cardio - fluid restriction to 1.5 L daily #afib - continue diltaizem - cardio began eliquis 5 for increased risk of thromboembolism CHADSVASC1 #lymphedema with chronic ulcers - patient follows regularly with wound care - continue wound care management as per Dr. Eric - ulcers without signs of infection #iron deficiency anemia - hgb stable, continue ferric acid DVT ppx - patient on eliquis FEN - low sodium diet Dispo: monitor symptoms and f/u ECHO Visit type - Emergency Visit Emergency Visit: Yes ED Registration Date: 02/15/19 Care time: The patient presented to the Emergency Department on the above date and was hospitalized for further evaluation of their emergent condition. - New Patient This patient is new to me today: Yes Date on this admission: 02/16/19 - Critical Care Critical Care patient: No ATTENDING PHYSICIAN STATEMENT I saw and evaluated the patient. I reviewed the resident's note and discussed the case with the resident. I agree with the resident's findings and plan as documented. SUBJECTIVE: OBJECTIVE: ASSESSMENT AND PLAN:
[2019-02-16] MEDS ORDERED: ASPIRIN 81 MG CHEWABLE TABLETS PO SCH (10:00)
[2019-02-16] MEDS: APIXABAN 5 MG TABLET PO SCH ×2 (10:45→21:10)
[2019-02-16] MEDS: ALLOPURINOL 300 MG TABLET (FP) PO SCH (10:45)
[2019-02-16] MEDS: FOLIC ACID 1 MG TABLET (FP) PO SCH (10:45)
[2019-02-16] MEDS: FUROSEMIDE 40 MG/4 ML INJECTABLE VIAL IVPUSH SCH (10:45)
[2019-02-16] MEDS: NYSTATIN POWDER 100,000 UNITS/GM - 15 GM TOPICAL POWDER TP SCH ×2 (10:46→21:10)
--- NOTE | 2019-02-16 13:07 | PN ---
Progress Note, Physician Chief Complaint: Events noted Not in distress History of Present Illness: Patient was seen and examined. Awake and alert. Chart was reviewed Denies chest pain or SOB - Current Medication List Current Medications: Active Medications Allopurinol (Zyloprim -) 300 mg PO DAILY [facility] Last Admin: 02/16/19 10:45 Dose: 300 mg Apixaban (Eliquis -) 5 mg PO BID [facility] Last Admin: 02/16/19 10:45 Dose: 5 mg Diltiazem HCl (Cardizem Cd -) 180 mg PO DAILY [facility] Last Admin: 02/16/19 10:45 Dose: 180 mg Folic Acid (Folic Acid -) 1 mg PO DAILY [facility] Last Admin: 02/16/19 10:45 Dose: 1 mg Furosemide (Lasix Injection -) 40 mg IVPUSH DAILY [facility] Last Admin: 02/16/19 10:45 Dose: 40 mg Non-Formulary Medication (Ferric Citrate [Auryxia]) 210 mg PO BID [facility] Nystatin (Nystop Powder -) 1 applic TP BID [facility] Last Admin: 02/16/19 10:46 Dose: 1 applic Sodium Polystyrene Sulfonate (Kayexalate -) 30 gm PO MoFr [facility] Last Admin: 02/15/19 18:57 Dose: 30 gm - Objective Vital Signs: Vital Signs Temperature 98.9 F 02/16/19 10:00 Pulse Rate 91 H 02/16/19 10:00 Respiratory Rate 20 02/16/19 10:00 Blood Pressure 128/86 02/16/19 10:00 O2 Sat by Pulse Oximetry (%) 97 02/16/19 09:00 Eyes: Yes: PERRL HENT: Yes: Atraumatic Neck: Yes: Supple Cardiovascular: Yes: Pulse Irregular, Murmur (Soft SM), S1, S2 Respiratory: Yes: Diminished Gastrointestinal: Yes: Normal Bowel Sounds, Soft. No: Tenderness Edema: Yes Additional Findings/Remarks: - Review of Systems Constitutional: denies: Chills, Fever Cardiovascular: (+) Shortness of Breath. denies: Chest Pain, Palpitations Respiratory: denies Cough, (+) SOB, SOB on Exertion. denies: Hemoptysis, Orthopnea, PND Gastrointestinal: denies: Abdominal Pain, Constipation, Diarrhea, Melena, Nausea , Rectal Bleeding, Vomiting Genitourinary: denies: Dysuria, Hematuria Musculoskeletal: denies: Back Pain, Joint Pain Neurological: denies: Dizziness, Headache, Seizure, Syncope Labs: CBC, BMP 02/16/19 06:45 02/16/19 06:45 Problem List - Problems (1) Paroxysmal atrial fibrillation with rapid ventricular response Code(s): I48.0 - PAROXYSMAL ATRIAL FIBRILLATION (2) Congestive heart failure Code(s): I50.9 - HEART FAILURE, UNSPECIFIED Qualifiers: Heart failure type: diastolic Heart failure chronicity: acute on chronic Qualified Code(s): I50.33 - Acute on chronic diastolic (congestive) heart failure (3) Renal insufficiency Code(s): N28.9 - DISORDER OF KIDNEY AND URETER, UNSPECIFIED (4) Anemia Code(s): D64.9 - ANEMIA, UNSPECIFIED Qualifiers: Anemia type: due to chronic kidney disease Chronic kidney disease stage: stage 3 (moderate) Qualified Code(s): N18.3 - Chronic kidney disease, stage 3 (moderate); D63.1 - Anemia in chronic kidney disease (5) Diastolic CHF Code(s): I50.30 - UNSPECIFIED DIASTOLIC (CONGESTIVE) HEART FAILURE Qualifiers: Heart failure chronicity: acute on chronic Qualified Code(s): I50.33 - Acute on chronic diastolic (congestive) heart failure Assessment/Plan 1. Acute on chronic diastolic heart failure 2. Paroxysmal AF with RVR [id number] score of 2 3. Hypertension 4. CKD 5. Anemia PLAN: 1. IV diuresis with monitoring renal function and electrolytes 2. Continue Eliquis 5 mg BID given elevated risk score 3. Continue Cardizem CD 180 mg QD. ACEI or ARB once renal function and K stabilizes 4. Echocardiogram to assess LV/RV and valvular function Further plans are to follow Jay Dale MD
[2019-02-16] MEDS ORDERED: MAGNESIUM SULF 50% (8.12 MEQ/2 ML-1 GM VIAL) IVPB ONE (14:49)
--- NOTE | 2019-02-16 16:21 | PN ---
Teaching Attending Note Name of Resident: Azucena Ibarra ATTENDING PHYSICIAN STATEMENT I saw and evaluated the patient. I reviewed the resident's note and discussed the case with the resident. I agree with the resident's findings and plan as documented. SUBJECTIVE: No fever or chills. He feels tired with no appetite this am OBJECTIVE: NAd , no facial droop, EOMI. MMM CV: irreg irreg. no MRG Lungs: CTAb Abd: soft, NT, ND , NL BS Ext : Legs were unwrapped todayas they were examined last night. thighs still have significant pitting edema L > R : enlarged scrotum with edema and no erythema. inverted penis ASSESSMENT AND PLAN: 58 y/o man with h/o lymphedema, diastolic CHF, A fib, HTN, CKD III and other medical problems who presented with increased LE and scrotal edema . 1- LE edema , due to acute diastolic CHF. trigger is not clear but could be the rapid a fib - cont IV lasix 40 daILY - STRICT i&o AND WEIGHT - CONT cardizem . - echo pending - salt restriction and fluid restriction . - tele with no events but A fib 2- A fib with RVR: - increase cardizem to 240 mg /day - cont eliquis 3- Tinea cruris: cont Nystatin powder 4- H/o CKD: Cr at base line . Monitor with diuresis 5- Prolonged QTC: avoid prolonging agents 5- HLOC. tele
[2019-02-17 06:46] LABS: HEMATOCRIT 28.2 % (35.4-49); HEMOGLOBIN 9.3 GM/dL (11.7-16.9); MCH 28.1 pg (25.7-33.7); MEAN CELL VOLUME 85.1 fl (80-96); MEAN PLT VOLUME 9.5 fl (7.5-11.1); PLATELET COUNT 164 K/MM3 (134-434); RBC 3.31 M/mm3 (4.00-5.60); WHITE BLOOD COUNT 4.8 K/mm3 (4.0-10.0)
[2019-02-17 07:45] LABS: ALBUMIN 2.2 g/dl (3.4-5.0); BILIRUBIN,TOTAL 0.9 mg/dL (0.2-1); BLOOD UREA NITROGEN 35.8 mg/dL (7-18); CALCIUM 7.5 mg/dL (8.5-10.1); CREATININE 2.6 mg/dL (0.55-1.3); POTASSIUM 4.1 mmol/L (3.5-5.1); TOT PROT 7.1 g/dl (6.4-8.2)
[2019-02-17 08:27] LABS: MAGNESIUM 1.7 mg/dL (1.8-2.4)
--- NOTE | 2019-02-17 10:22 | PN ---
Progress Note, Physician Chief Complaint: Events noted Not in distress History of Present Illness: Patient was seen and examined. Awake and alert. Chart was reviewed Denies chest pain or SOB Scrotal edema - Current Medication List Current Medications: Active Medications Allopurinol (Zyloprim -) 300 mg PO DAILY [facility] Last Admin: 02/16/19 10:45 Dose: 300 mg Apixaban (Eliquis -) 5 mg PO BID [facility] Last Admin: 02/16/19 21:10 Dose: 5 mg Diltiazem HCl (Cardizem Cd -) 240 mg PO DAILY [facility] Folic Acid (Folic Acid -) 1 mg PO DAILY [facility] Last Admin: 02/16/19 10:45 Dose: 1 mg Furosemide (Lasix Injection -) 40 mg IVPUSH DAILY [facility] Last Admin: 02/16/19 10:45 Dose: 40 mg Non-Formulary Medication (Ferric Citrate [Auryxia]) 210 mg PO BID [facility] Nystatin (Nystop Powder -) 1 applic TP BID [facility] Last Admin: 02/16/19 21:10 Dose: 1 applic Sodium Polystyrene Sulfonate (Kayexalate -) 30 gm PO MoFr [facility] Last Admin: 02/15/19 18:57 Dose: 30 gm - Objective Vital Signs: Vital Signs Temperature 98.1 F 02/17/19 09:00 Pulse Rate 103 H 02/17/19 09:00 Respiratory Rate 20 02/17/19 09:00 Blood Pressure 116/90 02/17/19 09:00 O2 Sat by Pulse Oximetry (%) 98 02/17/19 09:00 Eyes: Yes: PERRL HENT: Yes: Atraumatic Neck: Yes: Supple Cardiovascular: Yes: Tachycardia, Pulse Irregular, S1, S2 Respiratory: Yes: Diminished Gastrointestinal: Yes: Normal Bowel Sounds, Soft, Abdomen, Obese. No: Tenderness Edema: Yes Additional Findings/Remarks: - Review of Systems Constitutional: denies: Chills, Fever Cardiovascular: (+) Shortness of Breath. denies: Chest Pain, Palpitations Respiratory: denies Cough, (+) SOB, SOB on Exertion. denies: Hemoptysis, Orthopnea, PND Gastrointestinal: denies: Abdominal Pain, Constipation, Diarrhea, Melena, Nausea , Rectal Bleeding, Vomiting Genitourinary: denies: Dysuria, Hematuria Musculoskeletal: denies: Back Pain, Joint Pain Neurological: denies: Dizziness, Headache, Seizure, Syncope Labs: CBC, BMP 02/17/19 05:20 02/17/19 05:20 Problem List - Problems (1) Paroxysmal atrial fibrillation with rapid ventricular response Code(s): I48.0 - PAROXYSMAL ATRIAL FIBRILLATION (2) Congestive heart failure Code(s): I50.9 - HEART FAILURE, UNSPECIFIED Qualifiers: Heart failure type: diastolic Heart failure chronicity: acute on chronic Qualified Code(s): I50.33 - Acute on chronic diastolic (congestive) heart failure (3) Renal insufficiency Code(s): N28.9 - DISORDER OF KIDNEY AND URETER, UNSPECIFIED (4) Anemia Code(s): D64.9 - ANEMIA, UNSPECIFIED Qualifiers: Anemia type: due to chronic kidney disease Chronic kidney disease stage: stage 3 (moderate) Qualified Code(s): N18.3 - Chronic kidney disease, stage 3 (moderate); D63.1 - Anemia in chronic kidney disease (5) Diastolic CHF Code(s): I50.30 - UNSPECIFIED DIASTOLIC (CONGESTIVE) HEART FAILURE Qualifiers: Heart failure chronicity: acute on chronic Qualified Code(s): I50.33 - Acute on chronic diastolic (congestive) heart failure Assessment/Plan 1. Acute on chronic diastolic heart failure 2. Paroxysmal AF with RVR [id number] score of 2 3. Hypertension 4. CKD 5. Anemia PLAN: 1. IV diuresis with monitoring renal function and electrolytes 2. Continue Eliquis 5 mg BID given elevated risk score 3. Continue Cardizem CD 180 mg QD. ACEI or ARB once renal function and K stabilizes 4. Echocardiogram to assess LV/RV and valvular function Further plans are to follow Jay Dale MD
[2019-02-17] MEDS: ALLOPURINOL 300 MG TABLET (FP) PO SCH (10:31)
[2019-02-17] MEDS: APIXABAN 5 MG TABLET PO SCH ×2 (10:31→21:24)
[2019-02-17] MEDS: FUROSEMIDE 40 MG/4 ML INJECTABLE VIAL IVPUSH SCH (10:31)
[2019-02-17] MEDS: FOLIC ACID 1 MG TABLET (FP) PO SCH (10:31)
[2019-02-17] MEDS: NYSTATIN POWDER 100,000 UNITS/GM - 15 GM TOPICAL POWDER TP SCH ×2 (10:32→21:25)
[2019-02-17] MEDS ORDERED: oxyCODONE HCL 5 MG TABLET PO PRN (10:53)
[2019-02-17] MEDS ORDERED: MAGNESIUM SULF 50% (8.12 MEQ/2 ML-1 GM VIAL) IVPB ONE (10:53)
[2019-02-17] MEDS ORDERED: PT OWN MED DRAWER 7, Y5N ONE (14:22)
--- NOTE | 2019-02-17 16:07 | PN ---
Progress Note (short form) - Note Progress Note: Subjective: No fever or chills. No GARY. has pain in his scrotum and legs. Objective: Vital Signs: Last Vital Signs Temp Pulse Resp BP Pulse Ox 98.6 F 118 H 20 129/74 98 02/17/19 14:00 02/17/19 14:00 02/17/19 14:00 02/17/19 14:00 02/17/19 09:00 Laboratory Results - last 24 hr 02/17/19 02/17/19 05:20 05:20 WBC 4.8 RBC 3.31 L Hgb 9.3 L Hct 28.2 L MCV 85.1 MCH 28.1 MCHC 33.0 RDW 20.0 H Plt Count 164 MPV 9.5 Sodium 141 Potassium 4.1 Chloride 107 Carbon Dioxide 28 Anion Gap 6 L BUN 35.8 H Creatinine 2.6 H Est GFR (CKD-EPI)AfAm 29.73 Est GFR (CKD-EPI)NonAf 25.65 Random Glucose 77 Calcium 7.5 L Magnesium 1.7 L Total Bilirubin 0.9 AST 15 ALT 11 L Alkaline Phosphatase 182 H Total Protein 7.1 Albumin 2.2 L NAd , no facial droop. MMM CV: irreg irreg. no MRG Lungs: CTAb Ext : Legs wounds have less oozing today. edema on thighsL . R : enlarged scrotum which is better today. inverted penis ASSESSMENT AND PLAN: 58 y/o man with h/o lymphedema, diastolic CHF, A fib, HTN, CKD III and other medical problems who presented with increased LE and scrotal edema . 1- LE edema , due to acute diastolic CHF. trigger could be the rapid a fib - cont IV lasix 40 daILY - STRICT i&o AND WEIGHT - echo pending - salt restriction and fluid restriction . - tele with no events but A fib - cont xeroform dressing for now, pending wound care eval and Recs 2- A fib with RVR: - cont cardizem at 240 mg /day . if still tachy in am , will increase to 360 - cont eliquis 3- Tinea cruris: cont Nystatin powder 4- H/o CKD: Cr at base line . Monitor with diuresis 5- Prolonged QTC: avoid prolonging agents 5- HLOC. tele Visit type - Emergency Visit Emergency Visit: Yes ED Registration Date: 02/15/19 Care time: The patient presented to the Emergency Department on the above date and was hospitalized for further evaluation of their emergent condition. - New Patient This patient is new to me today: No - Critical Care Critical Care patient: No
[2019-02-18 07:12] LABS: BLOOD UREA NITROGEN 37.8 mg/dL (7-18); CALCIUM 7.6 mg/dL (8.5-10.1); CREATININE 2.6 mg/dL (0.55-1.3); POTASSIUM 4.1 mmol/L (3.5-5.1)
--- NOTE | 2019-02-18 09:07 | PN ---
Progress Note, Physician History of Present Illness: Patient denies chest pain or SOB, scrotal edema improving with diuresis. - Current Medication List Current Medications: Active Medications Allopurinol (Zyloprim -) 300 mg PO DAILY [facility] Last Admin: 02/17/19 10:31 Dose: 300 mg Apixaban (Eliquis -) 5 mg PO BID [facility] Last Admin: 02/17/19 21:24 Dose: 5 mg Diltiazem HCl (Cardizem Cd -) 240 mg PO DAILY [facility] Last Admin: 02/17/19 10:31 Dose: 240 mg Folic Acid (Folic Acid -) 1 mg PO DAILY [facility] Last Admin: 02/17/19 10:31 Dose: 1 mg Furosemide (Lasix Injection -) 40 mg IVPUSH DAILY [facility] Last Admin: 02/17/19 10:31 Dose: 40 mg Non-Formulary Medication (Ferric Citrate [Auryxia]) 210 mg PO BID [facility] Nystatin (Nystop Powder -) 1 applic TP BID [facility] Last Admin: 02/17/19 21:25 Dose: 1 applic Oxycodone HCl (Roxicodone -) 5 mg PO Q6H PRN PRN Reason: PAIN LEVEL 6-10 Last Admin: 02/17/19 12:09 Dose: 5 mg Sodium Polystyrene Sulfonate (Kayexalate -) 30 gm PO MoFr [facility] Last Admin: 02/15/19 18:57 Dose: 30 gm - Objective Vital Signs: Vital Signs Temperature 97.9 F 02/18/19 05:00 Pulse Rate 80 02/18/19 05:00 Respiratory Rate 20 02/18/19 05:00 Blood Pressure 128/75 02/18/19 05:00 O2 Sat by Pulse Oximetry (%) 96 02/17/19 20:05 Constitutional: Yes: No Distress, Calm Neck: Yes: Supple Cardiovascular: Yes: Pulse Irregular Respiratory: Yes: Regular, Diminished Gastrointestinal: Yes: Normal Bowel Sounds, Soft Genitourinary: Yes: Scrotal Edema Edema: Yes (Legs wrapped) Wound/Incision: Yes: Dressing Dry and Intact Labs: CBC, BMP 02/17/19 05:20 02/18/19 05:15 - ....Imaging EKG: Report Reviewed (Tele: Afib) Problem List - Problems (1) Paroxysmal atrial fibrillation with rapid ventricular response Code(s): I48.0 - PAROXYSMAL ATRIAL FIBRILLATION (2) Anasarca Code(s): R60.1 - GENERALIZED EDEMA (3) Congestive heart failure Code(s): I50.9 - HEART FAILURE, UNSPECIFIED Qualifiers: Heart failure type: diastolic Heart failure chronicity: acute on chronic Qualified Code(s): I50.33 - Acute on chronic diastolic (congestive) heart failure (4) Lymphedema of both lower extremities Code(s): I89.0 - LYMPHEDEMA, NOT ELSEWHERE CLASSIFIED (5) Renal insufficiency Code(s): N28.9 - DISORDER OF KIDNEY AND URETER, UNSPECIFIED (6) Anemia Code(s): D64.9 - ANEMIA, UNSPECIFIED Qualifiers: Anemia type: due to chronic kidney disease Chronic kidney disease stage: stage 3 (moderate) Qualified Code(s): N18.3 - Chronic kidney disease, stage 3 (moderate); D63.1 - Anemia in chronic kidney disease (7) Diastolic CHF Code(s): I50.30 - UNSPECIFIED DIASTOLIC (CONGESTIVE) HEART FAILURE Qualifiers: Heart failure chronicity: acute on chronic Qualified Code(s): I50.33 - Acute on chronic diastolic (congestive) heart failure (8) Idiopathic chronic venous hypertension of both lower extremities with inflammation Code(s): I87.323 - CHRONIC VENOUS HTN W INFLAMMATION OF BILATERAL LOW EXTRM Assessment/Plan 03/05/2018 Renal US: No hydro or calculi, bilateral increased renal cortical echogenicity c/w chronic renal parenchymal disease 1. Acute on chronic diastolic heart failure with scrotal edema resolving 2. Paroxysmal AF with RVR [id number] score of 2 3. Hypertension 4. CKD 5. Anemia of CKD 6. Chronic lymphedema PLAN: 1. IV diuresis with monitoring renal function and electrolytes 2. Continue Eliquis 5 mg BID given elevated risk score 3. Continue Cardizem CD 240 mg QD. ACEI or ARB once renal function and K stabilizes 4. Echocardiogram to assess LV/RV and valvular function 5. Compression therapy and wound care
[2019-02-18] MEDS: FUROSEMIDE 40 MG/4 ML INJECTABLE VIAL IVPUSH SCH ×2 (09:33→14:37)
[2019-02-18] MEDS: ALLOPURINOL 300 MG TABLET (FP) PO SCH (09:33)
[2019-02-18] MEDS: APIXABAN 5 MG TABLET PO SCH ×2 (09:33→22:22)
[2019-02-18] MEDS: FOLIC ACID 1 MG TABLET (FP) PO SCH (09:33)
[2019-02-18] MEDS: NYSTATIN POWDER 100,000 UNITS/GM - 15 GM TOPICAL POWDER TP SCH ×2 (09:34→22:23)
--- NOTE | 2019-02-18 10:58 | PN ---
Teaching Attending Note Name of Resident: Azucena Ibarra ATTENDING PHYSICIAN STATEMENT I saw and evaluated the patient. I reviewed the resident's note and discussed the case with the resident. I agree with the resident's findings and plan as documented. SUBJECTIVE: No fever or chills. has mild GARY. has no pain in abd or scrotum . has no pain in legs. No SOB OBJECTIVE: NAD. MMM CV: irreg irreg. no MRG Lungs: CTAB Ext : Legs wounds werenot unwrapped today . thigs with edema still. : enlarged scrotum which is soft and same size as yesterday . inverted penis ASSESSMENT AND PLAN: 58 y/o man with h/o lymphedema, diastolic CHF, A fib, HTN, CKD III and other medical problems who presented with increased LE and scrotal edema . 1- LE edema, due to acute diastolic CHF. trigger could be the rapid a fib - cont IV lasix . sheila d/w card if dose can be increased to 40 BID - Weight and strict I&O - echo pending - salt restriction and fluid restriction . - tele with no events but A fib - cont xeroform dressing for now, pending wound care eval and Recs 2- A fib with RVR: - cont cardizem at 240 mg /day . rate is better controlled today - cont eliquis 3- Tinea cruris: cont Nystatin powder 4- H/o CKD: Cr at base line . Monitor with diuresis 5- Prolonged QTC: avoid prolonging agents 5- HLOC. tele ASSESSMENT AND PLAN:
--- NOTE | 2019-02-18 11:17 | PN ---
Physical Exam: SUBJECTIVE: Patient seen and examined in the morning. Patient had no acute events overnight. Patient noted that he still has significant swelling of his scrotum, and refused to be weighed in the morning. No complaints of chest pain, shortness of breath, abdominal pain, headache, or nausea/vomiting/diarrhea. OBJECTIVE: Vital Signs Period Temp Pulse Resp BP Sys/[place] Pulse Ox Last 24 Hr 97.6 F-976 F 80-118 20-20 117-140/59-82 96-100 GENERAL: Awake, alert, and fully oriented, in no acute distress. HEAD: Normal with no signs of trauma. EYES: Pupils equal, round and reactive to light, extraocular movements intact, sclera anicteric, conjunctiva clear. NECK: Normal range of motion, supple LUNGS: Breath sounds equal, clear to auscultation bilaterally. No wheezes, and no crackles. HEART: irregular rate and rhythm. no murmurs appreciated. ABDOMEN: Soft, nontender, not distended, normoactive bowel sounds. MUSCULOSKELETAL: Normal range of motion at all joints. No bony deformities or tenderness. UPPER EXTREMITIES: 2+ pulses, warm, well-perfused. No cyanosis. No clubbing. No peripheral edema. LOWER EXTREMITIES: 2+ pitting edema tracking up to knee. Left lower extremity has one large wound with no pus or bleeding. Right lower extremity has several wounds with no pus or bleeding. Dressing was rewrapped and in place. NEUROLOGICAL: Cranial nerves II-XII intact. Normal speech G/U: Scrotal swelling, improved from admission on 02/15. Laboratory Results - last 24 hr 02/18/19 05:15 Sodium 141 Potassium 4.1 Chloride 107 Carbon Dioxide 30 Anion Gap 5 L BUN 37.8 H Creatinine 2.6 H Est GFR (CKD-EPI)AfAm 29.73 Est GFR (CKD-EPI)NonAf 25.65 Random Glucose 83 Calcium 7.6 L Active Medications Generic Name Dose Route Start Last Admin Trade Name Freq PRN Reason Stop Dose Admin Allopurinol 300 mg 02/16/19 10:00 02/18/19 09:33 Zyloprim - PO 300 mg DAILY [facility] Administration Apixaban 5 mg 02/15/19 22:00 02/18/19 09:33 Eliquis - PO 5 mg BID [facility] Administration Diltiazem HCl 240 mg 02/16/19 16:24 02/18/19 09:33 Cardizem Cd - PO 240 mg DAILY [facility] Administration Folic Acid 1 mg 02/16/19 10:00 02/18/19 09:33 Folic Acid - PO 1 mg DAILY [facility] Administration Furosemide 40 mg 02/16/19 10:00 02/18/19 09:33 Lasix Injection - IVPUSH 40 mg DAILY [facility] Administration Non-Formulary Medication 210 mg 02/15/19 22:00 Ferric Citrate [Auryxia] PO BID [facility] Nystatin 1 applic 02/15/19 22:00 02/18/19 09:34 Nystop Powder - TP 1 applic BID [facility] Administration Oxycodone HCl 5 mg 02/17/19 10:53 02/17/19 12:09 Roxicodone - PO 5 mg Q6H PRN Administration PAIN LEVEL 6-10 Sodium Polystyrene Sulfonate 30 gm 02/15/19 16:06 02/15/19 18:57 Kayexalate - PO 30 gm MoFr [facility] Administration ASSESSMENT/PLAN: 58M with PMH of CHF, afib (not on Anticoagulation), HTN, chronic venous stasis ulcers secondary to lymphedema presents with edema in the lower extremity and scrotum likely secondary to CHF exacerbation. 1) Lower Extremity Edema secondary to CHF exacerbation -Lasix 40 mg IV BID -Monitor In and Out: Patient was -640mL balance yesterday. -F/U Echo. Last echo in June 2018 showed EF of 35-40% -Lactose, sodium restricted diet, and fluid restriction 2)Afib with RVR -Not on anticoagulation medication at home -Continue telemetry monitoring -Cardizem 240 mg PO daily -Eliquis 5mg BID PO -Cardiology consulted, appreciate recs 3)Tinea Cruris -Nystatin powder 4)CKD stage 3 -Patient Creatinine is at baseline as per other visits F: No fluids, on restricted fluids. E: Monitor CMP N: Sodium controlled diet Dispo:admit to telemetry Visit type - Emergency Visit Emergency Visit: Yes ED Registration Date: 02/15/19 Care time: The patient presented to the Emergency Department on the above date and was hospitalized for further evaluation of their emergent condition. - New Patient This patient is new to me today: No - Critical Care Critical Care patient: No ATTENDING PHYSICIAN STATEMENT I saw and evaluated the patient. I reviewed the resident's note and discussed the case with the resident. I agree with the resident's findings and plan as documented. SUBJECTIVE: OBJECTIVE: ASSESSMENT AND PLAN:
--- NOTE | 2019-02-18 14:47 | ECHO ---
Name: STU العلي III Exam:Adult Echocardiogram Study Date: 02/18/2019 01:20 PM Age: 58 yrs Reason For Study: r/o worsening chf Height: 75 in Weight: 308 lb BSA: 2.6 m2 MMode/2D Measurements & Calculations IVSd: 1.1 cm Ao root diam: 4.7 cm LVIDd: 5.8 cm LA dimension: 3.9 cm LVIDs: 5.3 cm ACS: 2.7 cm LVPWd: 1.0 cm IVSs: 1.2 cm LVPWs: 0.89 cm EDV(Teich): 167.8 ml ESV(Teich): 136.7 ml EPSS: 2.4 cm Doppler Measurements & Calculations AI P1/2t: 490.3 msec AI max alexys: 297.5 cm/sec AI max P.4 mmHg AI dec slope: 177.7 cm/sec2 MR max alexys: 406.8 cm/sec TR max alexys: 305.1 cm/sec MR max P.3 mmHg TR max P.4 mmHg PI end-d alexys: 142.5 cm/sec Procedure A complete two-dimensional transthoracic echocardiogram was performed (2D, M-mode, Doppler and color flow Doppler). Left Ventricle The left ventricle is normal in size. Left ventricular systolic function is moderate to severely redu [place]. Ejection Fraction = 30-35%. There is moderate to severe global hypokinesis of the left ventricle. Right Ventricle The right ventricle is normal size. Suggestion of RV non-compaction. The right ventricular systolic f unction is mild to moderately reduced. Atria The left atrial size is normal. The right atrium is mildly dilated. Mitral Valve There is mild mitral valve thickening. There is moderate mitral regurgitation. The mitral regurgitant jet is eccentrically directed. Tricuspid Valve The tricuspid valve is normal in structure and function. There is mild to moderate tricuspid regurgit ation. Pulmonary artery systolic pressure is estimated at least 46 mmHg if RA pressure is assumed 3 mmHg (co uld not estimate RA pressure since IVC was not visualized). Aortic Valve The aortic valve is normal in structure and function. Moderate aortic regurgitation. There is an ecce ntric jet of aortic insufficiency directed against the anterior mitral leaflet. Pulmonic Valve The pulmonic valve is not well visualized. Mild pulmonic valvular regurgitation. Great Vessels Moderate aortic root dilatation. Pericardium/Pleura There is no pericardial effusion. Interpretation Summary The left ventricle is normal in size. Left ventricular systolic function is moderate to severely reduced. There is moderate to severe global hypokinesis of the left ventricle. Ejection Fraction = 30-35%. Suggestion of RV non-compaction The right ventricular systolic function is mild to moderately reduced. The left atrial size is normal. The right atrium is mildly dilated. There is mild mitral valve thickening. There is moderate mitral regurgitation. The mitral regurgitant jet is eccentrically directed. There is mild to moderate tricuspid regurgitation. Pulmonary artery systolic pressure is estimated at least 46 mmHg if RA pressure is assumed 3 mmHg (co uld not estimate RA pressure since IVC was not visualized) Moderate aortic regurgitation. There is an eccentric jet of aortic insufficiency directed against the anterior mitral leaflet. Mild pulmonic valvular regurgitation. Moderate aortic root dilatation. There is no pericardial effusion. When compared to study dated 06/22/18, LVEF has decreased. Clinical correlation is recommended Jay Dale MD 02/18/2019 02:47 PM
[2019-02-18] MEDS: SODIUM POLYSTYRENE SULFONATE 15 GM/60 ML BOTTLE PO SCH (18:06)
[2019-02-19] MEDS: FUROSEMIDE 40 MG/4 ML INJECTABLE VIAL IVPUSH SCH ×2 (06:21→13:36)
[2019-02-19 06:35] LABS: BASO % 0.8 % (0-2.0); EOS % 3.8 % (0-4.5); HEMOGLOBIN 8.6 GM/dL (11.7-16.9); LYMPH % 12.6 % (8-40); MCH 26.7 pg (25.7-33.7); MCHC 31.8 g/dl (32.0-35.9); MEAN PLT VOLUME 8.7 fl (7.5-11.1); MONO % 11.8 % (3.8-10.2); PLATELET COUNT 165 K/MM3 (134-434); RBC 3.21 M/mm3 (4.00-5.60); RDW 19.8 % (11.9-15.9); WHITE BLOOD COUNT 5.5 K/mm3 (4.0-10.0)
[2019-02-19 07:31] LABS: ALBUMIN 2.3 g/dl (3.4-5.0); BILIRUBIN,TOTAL 0.8 mg/dL (0.2-1); BLOOD UREA NITROGEN 35.9 mg/dL (7-18); CALCIUM 7.5 mg/dL (8.5-10.1); CREATININE 2.7 mg/dL (0.55-1.3); POTASSIUM 4.3 mmol/L (3.5-5.1); TOT PROT 7.2 g/dl (6.4-8.2)
[2019-02-19] MEDS: ALLOPURINOL 300 MG TABLET (FP) PO SCH (09:16)
[2019-02-19] MEDS: FOLIC ACID 1 MG TABLET (FP) PO SCH (09:16)
[2019-02-19] MEDS: APIXABAN 5 MG TABLET PO SCH ×2 (09:17→22:46)
[2019-02-19] MEDS: NYSTATIN POWDER 100,000 UNITS/GM - 15 GM TOPICAL POWDER TP SCH ×2 (09:17→22:46)
--- NOTE | 2019-02-19 11:35 | PN ---
Progress Note, Physician Chief Complaint: Events noted Not in distress History of Present Illness: Patient was seen and examined. Awake and alert. Chart was reviewed Denies chest pain or SOB Scrotal edema - Current Medication List Current Medications: Active Medications Allopurinol (Zyloprim -) 300 mg PO DAILY [facility] Last Admin: 02/19/19 09:16 Dose: 300 mg Apixaban (Eliquis -) 5 mg PO BID [facility] Last Admin: 02/19/19 09:17 Dose: 5 mg Diltiazem HCl (Cardizem Cd -) 240 mg PO DAILY [facility] Last Admin: 02/19/19 09:17 Dose: 240 mg Folic Acid (Folic Acid -) 1 mg PO DAILY [facility] Last Admin: 02/19/19 09:16 Dose: 1 mg Furosemide (Lasix Injection -) 40 mg IVPUSH BID@0600,1400 [facility] Last Admin: 02/19/19 06:21 Dose: 40 mg Non-Formulary Medication (Ferric Citrate [Auryxia]) 210 mg PO BID [facility] Nystatin (Nystop Powder -) 1 applic TP BID [facility] Last Admin: 02/19/19 09:17 Dose: 1 applic Oxycodone HCl (Roxicodone -) 5 mg PO Q6H PRN PRN Reason: PAIN LEVEL 6-10 Last Admin: 02/17/19 12:09 Dose: 5 mg Sodium Polystyrene Sulfonate (Kayexalate -) 30 gm PO MoFr [facility] Last Admin: 02/18/19 18:06 Dose: Not Given - Objective Vital Signs: Vital Signs Temperature 98.2 F 02/19/19 05:31 Pulse Rate 65 02/19/19 05:31 Respiratory Rate 20 02/19/19 05:31 Blood Pressure 120/70 02/19/19 05:31 O2 Sat by Pulse Oximetry (%) 100 02/18/19 20:40 Eyes: Yes: PERRL HENT: Yes: Atraumatic Neck: Yes: Supple Cardiovascular: Yes: Pulse Irregular, S1, S2 Respiratory: Yes: Diminished Gastrointestinal: Yes: Normal Bowel Sounds, Soft, Abdomen, Obese. No: Tenderness Edema: Yes Additional Findings/Remarks: - Review of Systems Constitutional: denies: Chills, Fever Cardiovascular: (+) Shortness of Breath. denies: Chest Pain, Palpitations Respiratory: denies Cough, (+) SOB, SOB on Exertion. denies: Hemoptysis, Orthopnea, PND Gastrointestinal: denies: Abdominal Pain, Constipation, Diarrhea, Melena, Nausea , Rectal Bleeding, Vomiting Genitourinary: denies: Dysuria, Hematuria Musculoskeletal: denies: Back Pain, Joint Pain Neurological: denies: Dizziness, Headache, Seizure, Syncope Labs: CBC, BMP 02/19/19 06:00 02/19/19 05:25 Problem List - Problems (1) Paroxysmal atrial fibrillation with rapid ventricular response Code(s): I48.0 - PAROXYSMAL ATRIAL FIBRILLATION (2) Congestive heart failure Code(s): I50.9 - HEART FAILURE, UNSPECIFIED Qualifiers: Heart failure type: diastolic Heart failure chronicity: acute on chronic Qualified Code(s): I50.33 - Acute on chronic diastolic (congestive) heart failure (3) Renal insufficiency Code(s): N28.9 - DISORDER OF KIDNEY AND URETER, UNSPECIFIED (4) Anemia Code(s): D64.9 - ANEMIA, UNSPECIFIED Qualifiers: Anemia type: due to chronic kidney disease Chronic kidney disease stage: stage 3 (moderate) Qualified Code(s): N18.3 - Chronic kidney disease, stage 3 (moderate); D63.1 - Anemia in chronic kidney disease (5) Diastolic CHF Code(s): I50.30 - UNSPECIFIED DIASTOLIC (CONGESTIVE) HEART FAILURE Qualifiers: Heart failure chronicity: acute on chronic Qualified Code(s): I50.33 - Acute on chronic diastolic (congestive) heart failure (6) Scrotal edema Code(s): N50.89 - OTHER SPECIFIED DISORDERS OF THE MALE GENITAL ORGANS (7) NYHA class 2 acute on chronic systolic heart failure Code(s): I50.23 - ACUTE ON CHRONIC SYSTOLIC (CONGESTIVE) HEART FAILURE (8) Swelling of lower extremity Code(s): M79.89 - OTHER SPECIFIED SOFT TISSUE DISORDERS Assessment/Plan 1. Acute on chronic sysolic/diastolic heart failure 2. Paroxysmal AF [id number] score of 2 3. Hypertension 4. CKD 5. Anemia PLAN: 1. IV diuresis with monitoring renal function and electrolytes 2. Continue Eliquis 5 mg BID given elevated risk score 3. Discontinue Cardizem. Consider Carvedilol instead start 6.25 mg BID and uptitrate. ACEI or ARB once renal function and K stabilizes 4. Echocardiogram was reviewed (moderate to severe LVEF 30-35%, RV systolic dysfunction and possible non-compaction, moderate MR, moderate AR, mild to moderate TR and mild MA) Further plans are to follow Jay Dale MD
--- NOTE | 2019-02-19 14:01 | PN ---
Physical Exam: SUBJECTIVE: Patient seen and examined in the morning. Had no acute events overnight. No complaints of chest pain, shortness of breath, abdominal pain, fever, chills, cough. OBJECTIVE: Vital Signs Period Temp Pulse Resp BP Sys/[place]land Pulse Ox Last 24 Hr 97.5 F-98.2 F 65-87 20-22 113-145/64-92 97-100 GENERAL: Awake, alert, and fully oriented, in no acute distress. HEAD: Normal with no signs of trauma. EYES: Pupils equal, round and reactive to light, extraocular movements intact, sclera anicteric, conjunctiva clear. NECK: Normal range of motion, supple LUNGS: Breath sounds equal, clear to auscultation bilaterally. No wheezes, and no crackles. HEART: irregular rate and rhythm. no murmurs appreciated. ABDOMEN: Soft, nontender, not distended, normoactive bowel sounds. MUSCULOSKELETAL: Normal range of motion at all joints. No bony deformities or tenderness. UPPER EXTREMITIES: 2+ pulses, warm, well-perfused. No cyanosis. No clubbing. No peripheral edema. LOWER EXTREMITIES: 2+ pitting edema tracking up to knee. Left lower extremity has one large wound with no pus or bleeding. Right lower extremity has several wounds with no pus or bleeding. Dressing was rewrapped and in place. Thighs are less edematous, +1 NEUROLOGICAL: Cranial nerves II-XII intact. Normal speech G/U: Scrotal swelling, improved from admission on 02/15 but looks to be the same as yesterday. Laboratory Results - last 24 hr CBC, BMP 02/19/19 06:00 02/19/19 05:25 Active Medications Generic Name Dose Route Start Last Admin Trade Name Aliyah PRN Reason Stop Dose Admin Allopurinol 300 mg 02/16/19 10:00 02/19/19 09:16 Zyloprim - PO 300 mg DAILY MICHELLE Administration Apixaban 5 mg 02/15/19 22:00 02/19/19 09:17 Eliquis - PO 5 mg BID MICHELLE Administration Carvedilol 6.25 mg 02/19/19 22:00 Coreg - PO BID MICHELLE Folic Acid 1 mg 02/16/19 10:00 02/19/19 09:16 Folic Acid - PO 1 mg DAILY MICHELLE Administration Furosemide 40 mg 02/18/19 14:00 02/19/19 13:36 Lasix Injection - IVPUSH 40 mg BID@0600,1400 MICHELLE Administration Non-Formulary Medication 210 mg 02/15/19 22:00 Ferric Citrate [Auryxia] PO BID MICHELLE Nystatin 1 applic 02/15/19 22:00 02/19/19 09:17 Nystop Powder - TP 1 applic BID MICHELLE Administration Oxycodone HCl 5 mg 02/17/19 10:53 02/17/19 12:09 Roxicodone - PO 5 mg Q6H PRN Administration PAIN LEVEL 6-10 Sodium Polystyrene Sulfonate 30 gm 02/15/19 16:06 02/18/19 18:06 Kayexalate - PO Not Given MoFr [facility] ASSESSMENT/PLAN: 58M with PMH of CHF, afib (not on Anticoagulation), HTN, chronic venous stasis ulcers secondary to lymphedema presents with edema in the lower extremity and scrotum likely secondary to CHF exacerbation. 1) Lower Extremity Edema secondary to CHF exacerbation -Lasix 40 mg IV BID -Monitor In and Out: Patient was -700mL balance yesterday. -Echo showed EF of 30-35% -D/C Cardizem -Started on Carvedilol 6.25 mg BID PO -Lactose, sodium restricted diet, and fluid restriction -Will start Hydralazine and isosorbide Mononitrate tomorrow. 2)Afib with RVR -Not on anticoagulation medication at home -Continue telemetry monitoring -Eliquis 5mg BID PO -Cardiology consulted, appreciate recs 3)Tinea Cruris -Nystatin powder 4)CKD stage 3 -Patient Creatinine is at baseline as per other visits 5)Chronic venous stasis ulcers secondary to lymphedema -Dressing changes done daily F: No fluids, on restricted fluids. E: Monitor CMP N: Sodium controlled diet Dispo:admit to telemetry Visit type - Emergency Visit Emergency Visit: Yes ED Registration Date: 02/15/19 Care time: The patient presented to the Emergency Department on the above date and was hospitalized for further evaluation of their emergent condition. - New Patient This patient is new to me today: No - Critical Care Critical Care patient: No ATTENDING PHYSICIAN STATEMENT I saw and evaluated the patient. I reviewed the resident's note and discussed the case with the resident. I agree with the resident's findings and plan as documented. SUBJECTIVE: OBJECTIVE: ASSESSMENT AND PLAN:
--- NOTE | 2019-02-19 18:09 | PN ---
Teaching Attending Note Name of Resident: Azucena Ibarra ATTENDING PHYSICIAN STATEMENT I saw and evaluated the patient. I reviewed the resident's note and discussed the case with the resident. I agree with the resident's findings and plan as documented. SUBJECTIVE: No fever or chills. No GARY , No SOB . legs feel the same to him. no pain in scrotum OBJECTIVE: NAD. MMM CV: irreg irreg. No MRG Lungs: CTAB Ext: Legs wounds are not changed but have decreased oozing . thighs with improved edema : enlarged scrotum which is soft and not changed form yesterday . inverted penis ASSESSMENT AND PLAN: 58 y/o man with h/o lymphedema, diastolic CHF, A fib, HTN, CKD III and other medical problems who presented with increased LE and scrotal edema . 1- Acute systolic CHF. - Cont IV lasix 40 BID . - Weight and strict I&O - Echo reviewed . low EF of 30-35 % - discussed with Card starting hydralazin and Imdur on this patient. Dr. Dale agrees and it will be started tomorrow - Coreg added in place of cardizem - he is on chronic kayeksalate twice a week due to hyperkalemia. adding an ACEI or ARB might be risky 2- A fib with RVR: - coreg - cont eliquis 3- Tinea cruris: cont Nystatin powder 4- H/o CKD: Cr at base line . Monitor with diuresis 5- Prolonged QTC: avoid prolonging agents 5- -Legs wounds: chronic cont xeroform dressing for now. HLOC. tele f/u with wound care clinic as out pt
[2019-02-19] MEDS: CARVEDILOL 6.25 MG TABLET (FP) PO SCH (22:46)
[2019-02-20] MEDS: FUROSEMIDE 40 MG/4 ML INJECTABLE VIAL IVPUSH SCH ×2 (06:38→13:56)
[2019-02-20 07:11] LABS: BASO % 0.7 % (0-2.0); HEMATOCRIT 26.9 % (35.4-49); HEMOGLOBIN 8.7 GM/dL (11.7-16.9); LYMPH % 12.6 % (8-40); MCH 27.3 pg (25.7-33.7); MCHC 32.1 g/dl (32.0-35.9); MEAN PLT VOLUME 9.1 fl (7.5-11.1); MONO % 13.6 % (3.8-10.2); NEUT % 70.1 % (42.8-82.8); PLATELET COUNT 162 K/MM3 (134-434); RBC 3.17 M/mm3 (4.00-5.60); RDW 19.5 % (11.9-15.9); WHITE BLOOD COUNT 4.9 K/mm3 (4.0-10.0)
[2019-02-20 07:43] LABS: ALBUMIN 2.4 g/dl (3.4-5.0); BILIRUBIN,TOTAL 0.8 mg/dL (0.2-1); BLOOD UREA NITROGEN 39.7 mg/dL (7-18); CALCIUM 7.7 mg/dL (8.5-10.1); CREATININE 2.8 mg/dL (0.55-1.3); POTASSIUM 4.5 mmol/L (3.5-5.1); TOT PROT 7.4 g/dl (6.4-8.2)
--- NOTE | 2019-02-20 09:07 | PN ---
Teaching Attending Note Name of Resident: Tobi Gallo ATTENDING PHYSICIAN STATEMENT I saw and evaluated the patient. I reviewed the resident's note and discussed the case with the resident. I agree with the resident's findings and plan as documented. SUBJECTIVE: Patient is siting comfortably with no acute distress. Feels slightly better today. Vital Signs Temperature 97.8 F 02/20/19 06:00 Pulse Rate 70 02/20/19 06:00 Respiratory Rate 20 02/20/19 08:09 Blood Pressure 120/70 02/20/19 06:00 O2 Sat by Pulse Oximetry (%) 98 02/20/19 08:09 GENERAL: The patient is awake, alert, and fully oriented, in no acute distress. HEAD: Normal with no signs of trauma. EYES: PERRL, extraocular movements intact, sclera anicteric, conjunctiva clear. ENT: Ears normal, oropharynx clear without exudates, moist mucous membranes. NECK: Trachea midline, full range of motion, supple. LUNGS: Breath sounds equal, clear to auscultation bilaterally, no wheezes, no crackles, no accessory muscle use. HEART: irregularly-iiregular eate and rhythm, S1, S2 without murmur, rub or gallop. ABDOMEN: Soft, nontender, nondistended, normoactive bowel sounds, no guarding, no rebound, no hepatosplenomegaly, no masses. EXTREMITIES: 2+ pulses, warm, well-perfused, positive for lymphaedema, with decereased oozing NEUROLOGICAL: Cranial nerves II through XII grossly intact. Normal speech, gait not observed. PSYCH: Normal mood, normal affect. SKIN: Warm, dry, normal turgor, BL leg wounds due to having chronic lymphaedema. :enlarged scrotum with inverted penis WBC 4.9 K/mm3 (4.0-10.0) 02/20/19 05:49 RBC 3.17 M/mm3 (4.00-5.60) L 02/20/19 05:49 Hgb 8.7 GM/dL (11.7-16.9) L 02/20/19 05:49 Hct 26.9 % (35.4-49) L 02/20/19 05:49 MCV 85.0 fl (80-96) 02/20/19 05:49 MCHC 32.1 g/dl (32.0-35.9) 02/20/19 05:49 RDW 19.5 % (11.9-15.9) H 02/20/19 05:49 Plt Count 162 K/MM3 (134-434) 02/20/19 05:49 MPV 9.1 fl (7.5-11.1) 02/20/19 05:49 CMP Sodium 140 mmol/L (136-145) 02/20/19 05:49 Potassium 4.5 mmol/L (3.5-5.1) 02/20/19 05:49 Chloride 106 mmol/L (98-107) 02/20/19 05:49 Carbon Dioxide 31 mmol/L (21-32) 02/20/19 05:49 Anion Gap 4 MMOL/L (8-16) L 02/20/19 05:49 BUN 39.7 mg/dL (7-18) H 02/20/19 05:49 Creatinine 2.8 mg/dL (0.55-1.3) H 02/20/19 05:49 Random Glucose 88 mg/dL (74-106) 02/20/19 05:49 Calcium 7.7 mg/dL (8.5-10.1) L 02/20/19 05:49 Total Bilirubin 0.8 mg/dL (0.2-1) 02/20/19 05:49 AST 19 U/L (15-37) 02/20/19 05:49 ALT 13 U/L (13-61) 02/20/19 05:49 Alkaline Phosphatase 188 U/L (45-117) H 02/20/19 05:49 Total Protein 7.4 g/dl (6.4-8.2) 02/20/19 05:49 Albumin 2.4 g/dl (3.4-5.0) L 02/20/19 05:49 Current Medications Generic Name Dose Route Start Last Admin Trade Name Sonuq PRN Reason Stop Dose Admin Allopurinol 300 mg 02/16/19 10:00 02/19/19 09:16 Zyloprim - PO 300 mg DAILY MICHELLE Administration Apixaban 5 mg 02/15/19 22:00 02/19/19 22:46 Eliquis - PO 5 mg BID MICHELLE Administration Carvedilol 6.25 mg 02/19/19 22:00 02/19/19 22:46 Coreg - PO 6.25 mg BID MICHELLE Administration Folic Acid 1 mg 02/16/19 10:00 02/19/19 09:16 Folic Acid - PO 1 mg DAILY MICHELLE Administration Furosemide 40 mg 02/18/19 14:00 02/20/19 06:38 Lasix Injection - IVPUSH 40 mg BID@0600,1400 MICHELLE Administration Non-Formulary Medication 210 mg 02/15/19 22:00 Ferric Citrate [Auryxia] PO BID MICHELLE Nystatin 1 applic 02/15/19 22:00 02/19/19 22:46 Nystop Powder - TP 1 applic BID MICHELLE Administration Oxycodone HCl 5 mg 02/17/19 10:53 02/17/19 12:09 Roxicodone - PO 5 mg Q6H PRN Administration PAIN LEVEL 6-10 Sodium Polystyrene Sulfonate 30 gm 02/15/19 16:06 02/18/19 18:06 Kayexalate - PO Not Given MoFr [facility] Home Medications Medication Instructions Recorded Furosemide [Lasix] 40 mg PO DAILY 06/24/16 Allopurinol 300 mg PO DAILY 06/07/18 Folic Acid 1 mg PO DAILY 06/07/18 Aspirin [ASA -] 81 mg PO DAILY #30 tab.chew 06/23/18 Sodium Polystyrene Sulfonate 30 gm PO Q72H 12/21/18 [Kayexalate -] Diltiazem HCl [Diltiazem 24Hr ER 180 mg PO DAILY 02/15/19 (Cd)] Ferric Citrate [Auryxia] 210 mg PO BID 02/15/19 CXR: CM, with congestive changes ASSESSMENT AND PLAN: Patient is a 58yo male with h/o lymphedema, diastolic CHF, A fib, HTN, CKD III , presented with increased LE and scrotal edema # Acute systolic with diastolic CHF.On IV Lasix 40 BID continue , Is and Os, Weight, fluid restriction to 1.0 Liter day, Echo reviewed . low EF of 30-35 % continue hydralazine and Imdur as per Dr. Dale . continue Coreg , and discontinue cardizem and monitor # Hx of Hyperkalemia on kayexalate chronically , cannot be added an ACEI or ARB , therefore added Hydralazine # A fib with RVR: On coreg now continue, cont eliquis # Tinea cruris: cont Nystatin powder # H/o CKD: Cr at base line . Monitor with diuresis # Prolonged QTC: avoid prolonging agents # Chronic Lymphedema: xeroform dressing as per wound care , f/u with wound care clinic as out pt DVT Px: Tiffanie
[2019-02-20] MEDS: FOLIC ACID 1 MG TABLET (FP) PO SCH (09:31)
[2019-02-20] MEDS: ALLOPURINOL 300 MG TABLET (FP) PO SCH (09:31)
[2019-02-20] MEDS: APIXABAN 5 MG TABLET PO SCH ×2 (09:31→23:02)
[2019-02-20] MEDS: CARVEDILOL 6.25 MG TABLET (FP) PO SCH ×2 (09:31→23:02)
[2019-02-20] MEDS: NYSTATIN POWDER 100,000 UNITS/GM - 15 GM TOPICAL POWDER TP SCH ×2 (09:34→23:02)
--- NOTE | 2019-02-20 09:39 | PN ---
Progress Note, Physician History of Present Illness: Patient denies chest pain or SOB, painless scrotal edema improving with diuresis. - Current Medication List Current Medications: Active Medications Allopurinol (Zyloprim -) 300 mg PO DAILY [facility] Last Admin: 02/20/19 09:31 Dose: 300 mg Apixaban (Eliquis -) 5 mg PO BID [facility] Last Admin: 02/20/19 09:31 Dose: 5 mg Carvedilol (Coreg -) 6.25 mg PO BID [facility] Last Admin: 02/20/19 09:31 Dose: 6.25 mg Folic Acid (Folic Acid -) 1 mg PO DAILY [facility] Last Admin: 02/20/19 09:31 Dose: 1 mg Furosemide (Lasix Injection -) 40 mg IVPUSH BID@0600,1400 [facility] Last Admin: 02/20/19 06:38 Dose: 40 mg Non-Formulary Medication (Ferric Citrate [Auryxia]) 210 mg PO BID [facility] Nystatin (Nystop Powder -) 1 applic TP BID [facility] Last Admin: 02/20/19 09:34 Dose: 1 applic Oxycodone HCl (Roxicodone -) 5 mg PO Q6H PRN PRN Reason: PAIN LEVEL 6-10 Last Admin: 02/17/19 12:09 Dose: 5 mg Sodium Polystyrene Sulfonate (Kayexalate -) 30 gm PO MoFr [facility] Last Admin: 02/18/19 18:06 Dose: Not Given - Objective Vital Signs: Vital Signs Temperature 97.8 F 02/20/19 06:00 Pulse Rate 70 02/20/19 06:00 Respiratory Rate 20 02/20/19 08:09 Blood Pressure 120/70 02/20/19 06:00 O2 Sat by Pulse Oximetry (%) 98 02/20/19 08:09 Constitutional: Yes: No Distress, Calm Neck: Yes: Supple Cardiovascular: Yes: Regular Rate and Rhythm Respiratory: Yes: Regular, CTA Bilaterally Gastrointestinal: Yes: Normal Bowel Sounds, Soft Genitourinary: Yes: Scrotal Edema Edema: Yes Edema: LLE: 1+, RLE: 1+ Integumentary: Yes: Venous Stasis Changes Wound/Incision: Yes: Dressing Dry and Intact Labs: CBC, BMP 02/20/19 05:49 02/20/19 05:49 Problem List - Problems (1) Paroxysmal atrial fibrillation with rapid ventricular response Code(s): I48.0 - PAROXYSMAL ATRIAL FIBRILLATION (2) Anasarca Code(s): R60.1 - GENERALIZED EDEMA (3) Congestive heart failure Code(s): I50.9 - HEART FAILURE, UNSPECIFIED Qualifiers: Heart failure type: combined systolic and diastolic Heart failure chronicity: acute on chronic Qualified Code(s): I50.43 - Acute on chronic combined systolic (congestive) and diastolic (congestive) heart failure (4) Lymphedema of both lower extremities Code(s): I89.0 - LYMPHEDEMA, NOT ELSEWHERE CLASSIFIED (5) Renal insufficiency Code(s): N28.9 - DISORDER OF KIDNEY AND URETER, UNSPECIFIED (6) Anemia Code(s): D64.9 - ANEMIA, UNSPECIFIED Qualifiers: Anemia type: due to chronic kidney disease Chronic kidney disease stage: stage 3 (moderate) Qualified Code(s): N18.3 - Chronic kidney disease, stage 3 (moderate); D63.1 - Anemia in chronic kidney disease (7) Idiopathic chronic venous hypertension of both lower extremities with inflammation Code(s): I87.323 - CHRONIC VENOUS HTN W INFLAMMATION OF BILATERAL LOW EXTRM Assessment/Plan 02/18/2019 Echo: Normal LV size with moderate-severe decreased LVEF 30-35%, possible RV noncompaction, mild-mod decreased RV fxn, mild LEYDA, mod MR, mild- mod TR RVSP 46 mmHg, mod AR, mild HI Ao 4.7 cm 03/05/2018 Renal US: No hydro or calculi, bilateral increased renal cortical echogenicity c/w chronic renal parenchymal disease 1. Acute on chronic sysolic/diastolic heart failure (possible non-compaction) with scrotal edema resolving 2. Paroxysmal AF [id number] score of 2 3. Hypertension 4. CKD 5. Anemia 6. Chronic lymphedema 7. Mod ao dilatation 4.7 cm PLAN: 1. IV diuresis with monitoring renal function and electrolytes, check scrotal US 2. Continue Eliquis 5 mg BID given elevated risk score 3. Carvedilol 6.25 mg BID and uptitrate. ACEI or ARB once renal function and K stabilizes, BiDil as alternative 4. Echocardiogram was reviewed (moderate to severe LVEF 30-35%, RV systolic dysfunction and possible non-compaction, moderate MR, moderate AR, mild to moderate TR and mild HI) 5. Compression therapy and wound care 6. Cardiac MRI as outpatient to further elucidate cardiomyopathy and aortic dilatation
[2019-02-20] MEDS: ISOSORBIDE MONONITRATE 30 MG TAB.SR.24H (FP) PO SCH (11:54)
[2019-02-20] MEDS: hydrALAZINE HCL 10 MG TABLET PO SCH ×2 (11:54→23:02)
--- NOTE | 2019-02-20 14:45 | PN ---
Physical Exam: SUBJECTIVE: Patient seen and examined in the morning. Had no acute events overnight. No complaints of chest pain, shortness of breath, abdominal pain, fever, chills, cough. OBJECTIVE: Vital Signs Period Temp Pulse Resp BP Sys/[place] Pulse Ox Last 24 Hr 97.8 F-98.4 F 70-90 20-20 114-127/70-78 98-98 GENERAL: Awake, alert, and fully oriented, in no acute distress. HEAD: Normal with no signs of trauma. EYES: Pupils equal, round and reactive to light, extraocular movements intact, sclera anicteric, conjunctiva clear. NECK: Normal range of motion, supple LUNGS: Breath sounds equal, clear to auscultation bilaterally. No wheezes, and no crackles. HEART: S1 S2, no murmurs rubs or gallops appreciated. ABDOMEN: Soft, nontender, not distended, normoactive bowel sounds. MUSCULOSKELETAL: Normal range of motion at all joints. No bony deformities or tenderness. UPPER EXTREMITIES: 2+ pulses, warm, well-perfused. No cyanosis. No clubbing. No peripheral edema. LOWER EXTREMITIES: 2+ pitting edema tracking up to knee. Left lower extremity has one large wound with no pus or bleeding. Right lower extremity has several wounds with no pus or bleeding. Dressing was rewrapped and in place. Thighs are less edematous, +1 NEUROLOGICAL: Cranial nerves II-XII intact. Normal speech G/U: Scrotal swelling, improved from admission on 02/15 but looks to be the same as yesterday. Laboratory Results - last 24 hr CBC, BMP 02/20/19 05:49 02/20/19 05:49 Active Medications Generic Name Dose Route Start Last Admin Trade Name Aliyah PRN Reason Stop Dose Admin Allopurinol 300 mg 02/16/19 10:00 02/20/19 09:31 Zyloprim - PO 300 mg DAILY MICHELLE Administration Apixaban 5 mg 02/15/19 22:00 02/20/19 09:31 Eliquis - PO 5 mg BID MICHELLE Administration Carvedilol 6.25 mg 02/19/19 22:00 02/20/19 09:31 Coreg - PO 6.25 mg BID MICHELLE Administration Folic Acid 1 mg 02/16/19 10:00 02/20/19 09:31 Folic Acid - PO 1 mg DAILY MICHELLE Administration Furosemide 40 mg 02/18/19 14:00 02/20/19 13:56 Lasix Injection - IVPUSH 40 mg BID@0600,1400 MICHELLE Administration Hydralazine HCl 10 mg 02/20/19 11:30 02/20/19 11:54 Apresoline - PO 10 mg BID MICHELLE Administration Isosorbide Mononitrate 30 mg 02/20/19 11:30 02/20/19 11:54 Imdur - PO 30 mg DAILY MICHELLE Administration Non-Formulary Medication 210 mg 02/15/19 22:00 Ferric Citrate [Auryxia] PO BID MICHELLE Nystatin 1 applic 02/15/19 22:00 02/20/19 09:34 Nystop Powder - TP 1 applic BID [facility] Administration Oxycodone HCl 5 mg 02/17/19 10:53 02/17/19 12:09 Roxicodone - PO 5 mg Q6H PRN Administration PAIN LEVEL 6-10 Sodium Polystyrene Sulfonate 30 gm 02/15/19 16:06 02/18/19 18:06 Kayexalate - PO Not Given MoFr [facility] ASSESSMENT/PLAN: 58M with PMH of CHF, afib (not on Anticoagulation), HTN, chronic venous stasis ulcers secondary to lymphedema presents with edema in the lower extremity and scrotum likely secondary to CHF exacerbation. 1) Lower Extremity Edema and scrotal swelling secondary to CHF exacerbation -Lasix 40 mg IV BID- will increase to 60 mg IV tomorrow if patient is stable with new additions to medications. -Monitor In and Out: Patient output not measured for yesterday. -Echo showed EF of 30-35% -Started on Carvedilol 6.25 mg BID PO -Hydralazine 10 mg PO BID -Isorbiside mononitrate 30 mg PO Daily -F/U Scrotal U/S -Fluid Restriction 1.5 L/24 hr -Lactose, sodium restricted diet, and fluid restriction 2)Afib with RVR -Not on anticoagulation medication at home -Continue telemetry monitoring -Eliquis 5mg BID PO -Cardiology consulted, appreciate recs 3)Tinea Cruris -Nystatin powder 4)CKD stage 3 -Patient Creatinine is at baseline as per other visits 5)Chronic venous stasis ulcers secondary to lymphedema -Dressing changes done daily F: No fluids, on restricted fluids. E: Monitor CMP N: Sodium controlled diet Dispo:admit to telemetry Visit type - Emergency Visit Emergency Visit: Yes ED Registration Date: 02/15/19 Care time: The patient presented to the Emergency Department on the above date and was hospitalized for further evaluation of their emergent condition. - New Patient This patient is new to me today: No - Critical Care Critical Care patient: No ATTENDING PHYSICIAN STATEMENT I saw and evaluated the patient. I reviewed the resident's note and discussed the case with the resident. I agree with the resident's findings and plan as documented. SUBJECTIVE: OBJECTIVE: ASSESSMENT AND PLAN:
[2019-02-21] MEDS: FUROSEMIDE 40 MG/4 ML INJECTABLE VIAL IVPUSH SCH ×3 (06:57→13:51)
[2019-02-21] MEDS ORDERED: ACETAMINOPHEN 325 MG TABLET (FP) PO PRN (07:10)
[2019-02-21 07:47] LABS: BASO % 0.9 % (0-2.0); EOS % 2.1 % (0-4.5); HEMATOCRIT 27.5 % (35.4-49); HEMOGLOBIN 8.7 GM/dL (11.7-16.9); LYMPH % 12.1 % (8-40); MCH 26.5 pg (25.7-33.7); MCHC 31.5 g/dl (32.0-35.9); MEAN CELL VOLUME 83.9 fl (80-96); MEAN PLT VOLUME 9.2 fl (7.5-11.1); MONO % 10.1 % (3.8-10.2); NEUT % 74.8 % (42.8-82.8); PLATELET COUNT 169 K/MM3 (134-434); RBC 3.28 M/mm3 (4.00-5.60); RDW 19.6 % (11.9-15.9); WHITE BLOOD COUNT 5.6 K/mm3 (4.0-10.0)
[2019-02-21 08:04] LABS: BLOOD UREA NITROGEN 43.2 mg/dL (7-18); CALCIUM 7.6 mg/dL (8.5-10.1); CREATININE 2.9 mg/dL (0.55-1.3); POTASSIUM 4.8 mmol/L (3.5-5.1)
--- NOTE | 2019-02-21 10:00 | PN ---
Progress Note, Physician History of Present Illness: Patient denies chest pain or SOB, painless scrotal edema slowly improving with diuresis. - Current Medication List Current Medications: Active Medications Acetaminophen (Tylenol -) 650 mg PO Q6H PRN PRN Reason: PAIN LEVEL 6-10 Allopurinol (Zyloprim -) 300 mg PO DAILY [facility] Last Admin: 02/20/19 09:31 Dose: 300 mg Apixaban (Eliquis -) 5 mg PO BID [facility] Last Admin: 02/20/19 23:02 Dose: 5 mg Carvedilol (Coreg -) 6.25 mg PO BID [facility] Last Admin: 02/20/19 23:02 Dose: 6.25 mg Folic Acid (Folic Acid -) 1 mg PO DAILY [facility] Last Admin: 02/20/19 09:31 Dose: 1 mg Furosemide (Lasix Injection -) 40 mg IVPUSH BID@0600,1400 [facility] Last Admin: 02/21/19 06:57 Dose: 40 mg Hydralazine HCl (Apresoline -) 10 mg PO BID [facility] Last Admin: 02/20/19 23:02 Dose: 10 mg Isosorbide Mononitrate (Imdur -) 30 mg PO DAILY [facility] Last Admin: 02/20/19 11:54 Dose: 30 mg Nystatin (Nystop Powder -) 1 applic TP BID [facility] Last Admin: 02/20/19 23:02 Dose: 1 applic Sodium Polystyrene Sulfonate (Kayexalate -) 30 gm PO MoFr [facility] Last Admin: 02/18/19 18:06 Dose: Not Given - Objective Vital Signs: Vital Signs Temperature 98 F 02/21/19 06:00 Pulse Rate 90 02/21/19 06:00 Respiratory Rate 20 02/21/19 06:00 Blood Pressure 116/66 02/21/19 06:00 O2 Sat by Pulse Oximetry (%) 95 02/20/19 21:00 Constitutional: Yes: No Distress, Calm Neck: Yes: Supple Cardiovascular: Yes: Regular Rate and Rhythm Respiratory: Yes: Regular, Diminished Gastrointestinal: Yes: Normal Bowel Sounds, Soft Genitourinary: Yes: Scrotal Edema Edema: Yes Labs: CBC, BMP 02/21/19 05:35 02/21/19 05:35 - ....Imaging EKG: Report Reviewed (Tele: NSR no PAF) Problem List - Problems (1) Paroxysmal atrial fibrillation with rapid ventricular response Code(s): I48.0 - PAROXYSMAL ATRIAL FIBRILLATION (2) Anasarca Code(s): R60.1 - GENERALIZED EDEMA (3) Congestive heart failure Code(s): I50.9 - HEART FAILURE, UNSPECIFIED Qualifiers: Heart failure type: combined systolic and diastolic Heart failure chronicity: acute on chronic Qualified Code(s): I50.43 - Acute on chronic combined systolic (congestive) and diastolic (congestive) heart failure (4) Lymphedema of both lower extremities Code(s): I89.0 - LYMPHEDEMA, NOT ELSEWHERE CLASSIFIED (5) Renal insufficiency Code(s): N28.9 - DISORDER OF KIDNEY AND URETER, UNSPECIFIED (6) Anemia Code(s): D64.9 - ANEMIA, UNSPECIFIED Qualifiers: Anemia type: due to chronic kidney disease Chronic kidney disease stage: stage 3 (moderate) Qualified Code(s): N18.3 - Chronic kidney disease, stage 3 (moderate); D63.1 - Anemia in chronic kidney disease (7) Idiopathic chronic venous hypertension of both lower extremities with inflammation Code(s): I87.323 - CHRONIC VENOUS HTN W INFLAMMATION OF BILATERAL LOW EXTRM Assessment/Plan 02/20/2019 Scrotal US: Moderate bilateral hydroceles with diffuse scrotal soft tissue edema 02/18/2019 Echo: Normal LV size with moderate-severe decreased LVEF 30-35%, possible RV noncompaction, mild-mod decreased RV fxn, mild LEYDA, mod MR, mild- mod TR RVSP 46 mmHg, mod AR, mild NE Ao 4.7 cm 03/05/2018 Renal US: No hydro or calculi, bilateral increased renal cortical echogenicity c/w chronic renal parenchymal disease 1. Acute on chronic sysolic/diastolic heart failure (possible non-compaction) with scrotal edema resolving 2. Paroxysmal AF [id number] score of 2 3. Hypertension 4. Acute on CKD 5. Anemia 6. Chronic lymphedema 7. Mod ao dilatation 4.7 cm 8. Moderate bilateral hydroceles PLAN: 1. Decrease IV diuresis with monitoring renal function and electrolytes 2. Continue Eliquis 5 mg BID given elevated risk score 3. Carvedilol 6.25 mg BID and uptitrate. ACEI or ARB once renal function and K stabilizes, BiDil as alternative 4. Echocardiogram was reviewed (moderate to severe LVEF 30-35%, RV systolic dysfunction and possible non-compaction, moderate MR, moderate AR, mild to moderate TR and mild NE) 5. Compression therapy and wound care 6. Cardiac MRI as outpatient to further elucidate cardiomyopathy and aortic dilatation 7. Urology input regarding hydrocele repair
--- NOTE | 2019-02-21 10:55 | PN ---
Teaching Attending Note Name of Resident: Tobi Gallo ATTENDING PHYSICIAN STATEMENT I saw and evaluated the patient. I reviewed the resident's note and discussed the case with the resident. I agree with the resident's findings and plan as documented. SUBJECTIVE: Patient is feeling better with no acute distress, no nausea or vomiting. Vital Signs Temperature 98 F 02/21/19 06:00 Pulse Rate 90 02/21/19 06:00 Respiratory Rate 20 02/21/19 06:00 Blood Pressure 116/66 02/21/19 06:00 O2 Sat by Pulse Oximetry (%) 95 02/20/19 21:00 GENERAL: The patient is awake, alert, and fully oriented, in no acute distress. HEAD: Normal with no signs of trauma. EYES: PERRL, extraocular movements intact, sclera anicteric, conjunctiva clear. ENT: Ears normal, oropharynx clear without exudates, moist mucous membranes. NECK: Trachea midline, full range of motion, supple. LUNGS: Breath sounds equal, clear to auscultation bilaterally, no wheezes, no crackles, no accessory muscle use. HEART: irregularly-irregular , rate and rhythm, S1, S2 positive, no murmur or rub or gallop. ABDOMEN: Soft, nontender, nondistended, normoactive bowel sounds, no guarding, no rebound, no hepatosplenomegaly, no masses. EXTREMITIES: 2+ pulses, warm, well-perfused, positive for lymphaedema, with decereased oozing NEUROLOGICAL: Cranial nerves II through XII grossly intact. Normal speech, gait not observed. PSYCH: Normal mood, normal affect. SKIN: Warm, dry, normal turgor, BL leg wounds due to having chronic lymphaedema. :enlarged scrotum with inverted penis CBCD WBC 5.6 K/mm3 (4.0-10.0) 02/21/19 05:35 RBC 3.28 M/mm3 (4.00-5.60) L 02/21/19 05:35 Hgb 8.7 GM/dL (11.7-16.9) L 02/21/19 05:35 Hct 27.5 % (35.4-49) L 02/21/19 05:35 MCV 83.9 fl (80-96) 02/21/19 05:35 MCHC 31.5 g/dl (32.0-35.9) L 02/21/19 05:35 RDW 19.6 % (11.9-15.9) H 02/21/19 05:35 Plt Count 169 K/MM3 (134-434) 02/21/19 05:35 MPV 9.2 fl (7.5-11.1) 02/21/19 05:35 CMP Sodium 139 mmol/L (136-145) 02/21/19 05:35 Potassium 4.8 mmol/L (3.5-5.1) 02/21/19 05:35 Chloride 105 mmol/L (98-107) 02/21/19 05:35 Carbon Dioxide 30 mmol/L (21-32) 02/21/19 05:35 Anion Gap 4 MMOL/L (8-16) L 02/21/19 05:35 BUN 43.2 mg/dL (7-18) H 02/21/19 05:35 Creatinine 2.9 mg/dL (0.55-1.3) H 02/21/19 05:35 Random Glucose 89 mg/dL (74-106) 02/21/19 05:35 Calcium 7.6 mg/dL (8.5-10.1) L 02/21/19 05:35 Total Bilirubin 0.8 mg/dL (0.2-1) 02/20/19 05:49 AST 19 U/L (15-37) 02/20/19 05:49 ALT 13 U/L (13-61) 02/20/19 05:49 Alkaline Phosphatase 188 U/L (45-117) H 02/20/19 05:49 Total Protein 7.4 g/dl (6.4-8.2) 02/20/19 05:49 Albumin 2.4 g/dl (3.4-5.0) L 02/20/19 05:49 Home Medications Medication Instructions Recorded Furosemide [Lasix] 40 mg PO DAILY 06/24/16 Allopurinol 300 mg PO DAILY 06/07/18 Folic Acid 1 mg PO DAILY 06/07/18 Aspirin [ASA -] 81 mg PO DAILY #30 tab.chew 06/23/18 Sodium Polystyrene Sulfonate 30 gm PO Q72H 12/21/18 [Kayexalate -] Diltiazem HCl [Diltiazem 24Hr ER 180 mg PO DAILY 02/15/19 (Cd)] Ferric Citrate [Auryxia] 210 mg PO BID 02/15/19 Current Medications Generic Name Dose Route Start Last Admin Trade Name Aliyah PRN Reason Stop Dose Admin Acetaminophen 650 mg 02/21/19 07:10 Tylenol - PO Q6H PRN PAIN LEVEL 6-10 Allopurinol 300 mg 02/16/19 10:00 02/21/19 13:15 Zyloprim - PO 300 mg DAILY MICHELLE Administration Apixaban 2.5 mg 02/21/19 13:30 Eliquis - PO BID MICHELLE Carvedilol 6.25 mg 02/19/19 22:00 02/21/19 13:15 Coreg - PO 6.25 mg BID MICHELLE Administration Folic Acid 1 mg 02/16/19 10:00 02/21/19 13:15 Folic Acid - PO 1 mg DAILY MICHELLE Administration Furosemide 40 mg 02/21/19 12:00 Lasix Injection - IVPUSH DAILY MICHELLE Hydralazine HCl 10 mg 02/20/19 11:30 02/21/19 13:15 Apresoline - PO 10 mg BID MICHELLE Administration Isosorbide Mononitrate 30 mg 02/20/19 11:30 02/21/19 13:14 Imdur - PO 30 mg DAILY MICHELLE Administration Nystatin 1 applic 02/15/19 22:00 02/20/19 23:02 Nystop Powder - TP 1 applic BID MICHELLE Administration Sodium Polystyrene Sulfonate 30 gm 02/15/19 16:06 02/18/19 18:06 Kayexalate - PO Not Given MoFr MICHELLE CXR: CM, with congestive changes ASSESSMENT AND PLAN: Patient is a 58yo male with h/o lymphedema, diastolic CHF, A fib, HTN, CKD III , presented with increased LE and scrotal edema # Acute systolic with diastolic CHF, decrease the lasix dose to 40mg IV , Is and Os, Weight, fluid restriction to 1.0 Liter day, Echo reviewed . low EF of 30-35 % continue hydralazine and Imdur as per . continue Coreg , and discontinue cardizem and monitor # Hx of Hyperkalemia on kayexalate chronically , cannot be added an ACEI or ARB , therefore added Hydralazine # A fib with RVR: On coreg 6.25mg bid , continue Eliquis 5.0mg bid as per cardio. # Tinea cruris: cont Nystatin powder # H/o CKD: Cr at base line . Monitor with diuresis # Prolonged QTC: avoid prolonging agents # Chronic Lymphedema: xeroform dressing as per wound care , f/u with wound care clinic as out pt DVT Px: Tiffanie
[2019-02-21] MEDS: NYSTATIN POWDER 100,000 UNITS/GM - 15 GM TOPICAL POWDER TP SCH ×2 (11:15→22:57)
[2019-02-21] MEDS: ISOSORBIDE MONONITRATE 30 MG TAB.SR.24H (FP) PO SCH (13:14)
[2019-02-21] MEDS: FOLIC ACID 1 MG TABLET (FP) PO SCH (13:15)
[2019-02-21] MEDS: hydrALAZINE HCL 10 MG TABLET PO SCH ×2 (13:15→21:26)
[2019-02-21] MEDS: ALLOPURINOL 300 MG TABLET (FP) PO SCH (13:15)
[2019-02-21] MEDS: CARVEDILOL 6.25 MG TABLET (FP) PO SCH ×2 (13:15→21:26)
--- NOTE | 2019-02-21 13:20 | PN ---
Physical Exam: SUBJECTIVE: Patient seen and examined in the morning. No acute events overnight. Patient had no complaints of chest pain, shortness of breath, abdominal pain, fever, chills, or cough. OBJECTIVE: Vital Signs Period Temp Pulse Resp BP Sys/[place] Pulse Ox Last 24 Hr 97.9 F-98.6 F 78-90 20-20 105-122/60-74 95 GENERAL: Awake, alert, and fully oriented, in no acute distress. HEAD: Normal with no signs of trauma. EYES: Pupils equal, round and reactive to light, extraocular movements intact, sclera anicteric, conjunctiva clear. NECK: Normal range of motion, supple LUNGS: Breath sounds equal, clear to auscultation bilaterally. No wheezes, and no crackles. HEART: S1 S2, no murmurs rubs or gallops appreciated. ABDOMEN: Soft, nontender, not distended, normoactive bowel sounds. MUSCULOSKELETAL: Normal range of motion at all joints. No bony deformities or tenderness. UPPER EXTREMITIES: 2+ pulses, warm, well-perfused. No cyanosis. No clubbing. No peripheral edema. LOWER EXTREMITIES: 2+ pitting edema tracking up to knee. Left lower extremity has one large wound with no pus or bleeding. Right lower extremity has several wounds with no pus or bleeding. Dressing was rewrapped and in place. Thighs are less edematous, +1 NEUROLOGICAL: Cranial nerves II-XII intact. Normal speech G/U: Scrotal swelling, improved from admission on 02/15 but looks to be the same as yesterday. Laboratory Results - last 24 hr 02/21/19 02/21/19 05:35 05:35 WBC 5.6 RBC 3.28 L Hgb 8.7 L Hct 27.5 L MCV 83.9 MCH 26.5 MCHC 31.5 L RDW 19.6 H Plt Count 169 MPV 9.2 Absolute Neuts (auto) 4.2 Neutrophils % 74.8 Lymphocytes % 12.1 Monocytes % 10.1 Eosinophils % 2.1 Basophils % 0.9 Nucleated RBC % 0 Sodium 139 Potassium 4.8 Chloride 105 Carbon Dioxide 30 Anion Gap 4 L BUN 43.2 H Creatinine 2.9 H Est GFR (CKD-EPI)AfAm 26.06 Est GFR (CKD-EPI)NonAf 22.48 Random Glucose 89 Calcium 7.6 L Active Medications Generic Name Dose Route Start Last Admin Trade Name Freq PRN Reason Stop Dose Admin Acetaminophen 650 mg 02/21/19 07:10 Tylenol - PO Q6H PRN PAIN LEVEL 6-10 Allopurinol 300 mg 02/16/19 10:00 02/20/19 09:31 Zyloprim - PO 300 mg DAILY MICHELLE Administration Apixaban 2.5 mg 02/21/19 13:30 Eliquis - PO BID MICHELLE Carvedilol 6.25 mg 02/19/19 22:00 02/20/19 23:02 Coreg - PO 6.25 mg BID MICHELLE Administration Folic Acid 1 mg 02/16/19 10:00 02/20/19 09:31 Folic Acid - PO 1 mg DAILY MICHELLE Administration Furosemide 40 mg 02/18/19 14:00 02/21/19 06:57 Lasix Injection - IVPUSH 02/21/19 14:00 40 mg BID@0600,1400 MICHELLE Administration Furosemide 40 mg 02/21/19 12:00 Lasix Injection - IVPUSH DAILY [facility] Hydralazine HCl 10 mg 02/20/19 11:30 02/20/19 23:02 Apresoline - PO 10 mg BID MICHELLE Administration Isosorbide Mononitrate 30 mg 02/20/19 11:30 02/20/19 11:54 Imdur - PO 30 mg DAILY [facility] Administration Nystatin 1 applic 02/15/19 22:00 02/20/19 23:02 Nystop Powder - TP 1 applic BID [facility] Administration Sodium Polystyrene Sulfonate 30 gm 02/15/19 16:06 02/18/19 18:06 Kayexalate - PO Not Given MoFr [facility] ASSESSMENT/PLAN: 58M with PMH of CHF, afib (not on Anticoagulation), HTN, chronic venous stasis ulcers secondary to lymphedema presents with edema in the lower extremity and scrotum likely secondary to CHF exacerbation. 1) Lower Extremity Edema and scrotal swelling secondary to CHF exacerbation -Lasix 40 mg IV Daily-patient creatinine is steadily increasing. -Monitor In and Out: Balance of -1250 ml -Echo showed EF of 30-35% -Carvedilol 6.25 mg BID PO -Hydralazine 10 mg PO BID -Isorbiside mononitrate 30 mg PO Daily -Scrotal U/S- Bilateral hydrocele, scrotal soft tissue edema. -Fluid Restriction 1.5 L/24 hr -Lactose, sodium restricted diet, and fluid restriction 2)Afib with RVR -Not on anticoagulation medication at home -Continue telemetry monitoring -Eliquis 2.5mg BID PO -Cardiology consulted, appreciate recs 3)Tinea Cruris -Nystatin powder 4)CKD stage 3 -Creatinine increasing. Lasix dose cut in half to daily. -Nephrology consulted, appreciate recs. 5)Chronic venous stasis ulcers secondary to lymphedema -Dressing changes done daily F: No IV fluids,on restricted fluid intake. E: Monitor BMP N: Sodium controlled diet Dispo:admitted to telemetry Visit type - Emergency Visit Emergency Visit: Yes ED Registration Date: 02/15/19 Care time: The patient presented to the Emergency Department on the above date and was hospitalized for further evaluation of their emergent condition. - New Patient This patient is new to me today: No - Critical Care Critical Care patient: No ATTENDING PHYSICIAN STATEMENT I saw and evaluated the patient. I reviewed the resident's note and discussed the case with the resident. I agree with the resident's findings and plan as documented. SUBJECTIVE: OBJECTIVE: ASSESSMENT AND PLAN:
[2019-02-21] MEDS ORDERED: APIXABAN 2.5 MG TABLET PO SCH (13:30)
--- NOTE | 2019-02-21 14:52 | CONSULT ---
Consultation: REQUESTING PROVIDER: Dr. Vizcarra CONSULT REQUEST: We have been asked to medically evaluate this patient for RAMY. HISTORY OF PRESENT ILLNESS: Pt. is a 58 y.o. M with PMHx. of CHF, Afib (not on Anticoagulation), HTN, CKD, chronic venous stasis ulcers secondary to lymphedema who presents with increasing swelling of thighs. Pt. states that he went to wound care clinic and they noticed increased swelling of his upper legs so they sent him to the Emergency department. Patient also states that he has scrotal swelling, and has been unable to see a urologist so far. Pt. denies any NSAID use. Case was discussed with Dr. Pederson (whom Pt. follows on the outpatient) and he last had labs drawn with her on December 25. His creatinine then was 2.0, his Potassium was 4.5 and his Hgb was 8.8. He denies any chest pain, shortness of breath, orthopnea, pain in the extremities, increased difficulty ambulating, dysuria, or hematuria. Pt. endorses compliance with his medications REVIEW OF SYSTEMS: As above PHYSICAL EXAMINATION Vital Signs - 24 hr 02/20/19 02/20/19 02/21/19 21:00 22:00 02:00 Temperature 98.6 F 98.3 F Pulse Rate 88 85 Respiratory 20 20 Rate Blood Pressure 105/70 122/60 O2 Sat by Pulse 95 Oximetry (%) 02/21/19 02/21/19 06:00 13:45 Temperature 98 F 98.2 F Pulse Rate 90 85 Respiratory 20 16 Rate Blood Pressure 116/66 122/65 O2 Sat by Pulse Oximetry (%) GENERAL: Awake, alert, and fully oriented, in no acute distress. HEAD: Normal with no signs of trauma. EYES: Extraocular movements intact, sclera anicteric, conjunctiva clear. EARS, NOSE, THROAT: Ears normal, nares patent, oropharynx clear without exudates. Moist mucous membranes. NECK: Normal range of motion, supple without lymphadenopathy, JVD, or masses. LUNGS: Breath sounds equal, clear to auscultation bilaterally. No wheezes, and no crackles. No accessory muscle use. HEART: Regular rate and rhythm, normal S1 and S2 without murmur ABDOMEN: Soft, nontender, not distended UPPER EXTREMITIES: 2+ radial pulses, warm, well-perfused. No cyanosis. No clubbing.No peripheral edema. LOWER EXTREMITIES: warm, well-perfused. No calf tenderness. Lymphedema with anasarcic changes. Lower extremities bandages by wound care, did not take down dressings. NEUROLOGICAL: Cranial nerves grossly II-XII intact. Normal speech. PSYCHIATRIC: Cooperative. Good eye contact. Appropriate mood and affect. SKIN: Warm, dry, anasarca Laboratory Results - last 24 hr 02/21/19 02/21/19 05:35 05:35 WBC 5.6 RBC 3.28 L Hgb 8.7 L Hct 27.5 L MCV 83.9 MCH 26.5 MCHC 31.5 L RDW 19.6 H Plt Count 169 MPV 9.2 Absolute Neuts (auto) 4.2 Neutrophils % 74.8 Lymphocytes % 12.1 Monocytes % 10.1 Eosinophils % 2.1 Basophils % 0.9 Nucleated RBC % 0 Sodium 139 Potassium 4.8 Chloride 105 Carbon Dioxide 30 Anion Gap 4 L BUN 43.2 H Creatinine 2.9 H Est GFR (CKD-EPI)AfAm 26.06 Est GFR (CKD-EPI)NonAf 22.48 Random Glucose 89 Calcium 7.6 L Active Medications Home Medications Medication Instructions Recorded Furosemide [Lasix] 40 mg PO DAILY 06/24/16 Allopurinol 300 mg PO DAILY 06/07/18 Folic Acid 1 mg PO DAILY 06/07/18 Aspirin [ASA -] 81 mg PO DAILY #30 tab.chew 06/23/18 Sodium Polystyrene Sulfonate 30 gm PO Q72H 12/21/18 [Kayexalate -] Diltiazem HCl [Diltiazem 24Hr ER 180 mg PO DAILY 02/15/19 (Cd)] Ferric Citrate [Auryxia] 210 mg PO BID 02/15/19 Current Medications Acetaminophen (Tylenol -) 650 mg PO Q6H PRN PRN Reason: PAIN LEVEL 6-10 Allopurinol (Zyloprim -) 300 mg PO DAILY [facility] Last Admin: 02/21/19 13:15 Dose: 300 mg Apixaban (Eliquis -) 2.5 mg PO BID [facility] Carvedilol (Coreg -) 6.25 mg PO BID [facility] Last Admin: 02/21/19 13:15 Dose: 6.25 mg Folic Acid (Folic Acid -) 1 mg PO DAILY [facility] Last Admin: 11/07/19 13:15 Dose: 1 mg Furosemide (Lasix Injection -) 40 mg IVPUSH DAILY [facility] Hydralazine HCl (Apresoline -) 10 mg PO BID [facility] Last Admin: 02/21/19 13:15 Dose: 10 mg Isosorbide Mononitrate (Imdur -) 30 mg PO DAILY [facility] Last Admin: 02/21/19 13:14 Dose: 30 mg Nystatin (Nystop Powder -) 1 applic TP BID [facility] Last Admin: 02/20/19 23:02 Dose: 1 applic Sodium Polystyrene Sulfonate (Kayexalate -) 30 gm PO MoFr [facility] Last Admin: 02/18/19 18:06 Dose: Not Given ASSESSMENT/PLAN: Pt. is a 58 y.o. M with PMHx. of mixed CHF, Afib (not on Anticoagulation), HTN, CKD, chronic venous stasis ulcers secondary to lymphedema who presents with increasing swelling of thighs. #RAMY 2/2 mixed CHF exacerbation Cr.: 2.8-->2.9 c/w monitoring Per discussion with Swatch Paster Pt.s last Cr. in the office was 2.0 Decreased IVF to 40mg IVP Daily for rising Cr. Hold LEAH/ARB--> will use BiDil instead for now Avoid Nephrotoxins and NSAIDs f/u scrotal US f/u UA, urine creatinine, sodium, urea, and urine total protein c/w Allopurinol Echo (02/18/19) Normal LV size with moderate-severe decreased LVEF 30-35%, possible RV noncompaction, mild-mod decreased RV fxn, mild LEYDA, mod MR, mild- mod TR RVSP 46 mmHg, mod AR, mild TX Ao 4.7 cm 02/20/2019 Scrotal US: Moderate bilateral hydroceles with diffuse scrotal soft tissue edema 03/05/2018 Renal US: No hydro or calculi, bilateral increased renal cortical echogenicity c/w chronic renal parenchymal disease 02/20/2019 Scrotal US: Moderate bilateral hydroceles with diffuse scrotal soft tissue edema Dispo: We will continue to follow the patient. Thank you for this consultative opportunity. Visit type - Emergency Visit Emergency Visit: Yes ED Registration Date: 02/15/19 Care time: The patient presented to the Emergency Department on the above date and was hospitalized for further evaluation of their emergent condition. - New Patient This patient is new to me today: Yes Date on this admission: 02/21/19 - Critical Care Critical Care patient: No ATTENDING PHYSICIAN STATEMENT I saw and evaluated the patient. I reviewed the resident's note and discussed the case with the resident. I agree with the resident's findings and plan as documented. SUBJECTIVE: OBJECTIVE: ASSESSMENT AND PLAN:
--- NOTE | 2019-02-21 17:02 | PN ---
Teaching Attending Note Name of Resident: Chavez Dominique (Nephrology) ATTENDING PHYSICIAN STATEMENT I saw and evaluated the patient. I reviewed the resident's note and discussed the case with the resident. I agree with the resident's findings and plan as documented. Renal Pt is a 58 year old male with chf, lymphedema, ckd, and htn who presented with worsening edema. He was admitted and put on lasix. He follows with Dr Gayle. I called her and discussed his care. 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 He also develops hyperkalemia and is on kayexylate. He says that his legs are always swollen. He denies shortness of breath. pmhx: CHF, Afib, HTN, CKD, chronic venous stasis ulcers secondary to lymphedema allergies eggs, citrus, lactose ros edema social hx lives at home with Current Medications Generic Name Dose Route Start Last Admin Trade Name Freq PRN Reason Stop Dose Admin Acetaminophen 650 mg 02/21/19 07:10 Tylenol - PO Q6H PRN PAIN LEVEL 6-10 Allopurinol 300 mg 02/16/19 10:00 02/21/19 13:15 Zyloprim - PO 300 mg DAILY MICHELLE Administration Apixaban 5 mg 02/21/19 14:56 Eliquis - PO BID MICHELLE Carvedilol 6.25 mg 02/19/19 22:00 02/21/19 13:15 Coreg - PO 6.25 mg BID MICHELLE Administration Folic Acid 1 mg 02/16/19 10:00 02/21/19 13:15 Folic Acid - PO 1 mg DAILY MICHELLE Administration Furosemide 40 mg 02/21/19 12:00 Lasix Injection - IVPUSH DAILY MICHELLE Hydralazine HCl 10 mg 02/20/19 11:30 02/21/19 13:15 Apresoline - PO 10 mg BID MICHELLE Administration Isosorbide Mononitrate 30 mg 02/20/19 11:30 02/21/19 13:14 Imdur - PO 30 mg DAILY MICHELLE Administration Nystatin 1 applic 02/15/19 22:00 02/20/19 23:02 Nystop Powder - TP 1 applic BID MICHELLE Administration Sodium Zirconium Cyclosilicate 10 gm 02/22/19 10:00 Lokelma PO DAILY MICHELLE Last Vital Signs Temp Pulse Resp BP Pulse Ox 98.2 F 85 16 122/65 95 02/21/19 13:45 02/21/19 13:45 02/21/19 13:45 02/21/19 13:45 02/20/19 21:00 Laboratory Tests 02/16/19 02/17/19 02/21/19 06:45 05:20 05:35 Creatinine 2.6 H 2.6 H 2.9 H cardio s1s2 pulm clear GI soft ext plus 2 edema, lymphedema neuro awake and alert skin dressing in place Impression 1. ckd 2. josephine 3. hyperkalemia 4. lymphedema 5. chf 6. htn Plan - decrease lose of lasix - repeat labs in am - check kidney and bladder ultrasound - change kayexylate to lokelny
[2019-02-21 20:27] LABS: EPI CELLS 1.3 /HPF (0-5/HPF); HYALINE CASTS 2 /lpf (0-8); URINE APPEARANCE CLEAR; URINE BILIRUBIN NEGATIVE (NEGATIVE); URINE COLOR YELLOW; URINE GLUCOSE (UA) NEGATIVE (NEGATIVE); URINE KETONE NEGATIVE (NEGATIVE); URINE LEUK ESTERASE 2+ (NEGATIVE); URINE NITRITE POSITIVE (NEGATIVE); URINE PROTEIN NEGATIVE (NEGATIVE); URINE RBC 1 /hpf (0-4); URINE UROBILINOGEN 0.2 mg/dL (0.2-1.0); URINE WBC 47 /hpf (0-5)
[2019-02-21] MEDS: APIXABAN 5 MG TABLET PO SCH (21:26)
[2019-02-22 07:03] LABS: BASO % 1.3 % (0-2.0); EOS % 2.5 % (0-4.5); HEMATOCRIT 27.1 % (35.4-49); HEMOGLOBIN 8.7 GM/dL (11.7-16.9); LYMPH % 13.6 % (8-40); MCH 27.1 pg (25.7-33.7); MEAN CELL VOLUME 84.7 fl (80-96); MEAN PLT VOLUME 8.9 fl (7.5-11.1); MONO % 11.1 % (3.8-10.2); NEUT % 71.5 % (42.8-82.8); PLATELET COUNT 155 K/MM3 (134-434); RDW 19.5 % (11.9-15.9); WHITE BLOOD COUNT 4.7 K/mm3 (4.0-10.0)
[2019-02-22 07:48] LABS: ALBUMIN 2.3 g/dl (3.4-5.0); BILIRUBIN,TOTAL 0.8 mg/dL (0.2-1); BLOOD UREA NITROGEN 49.9 mg/dL (7-18); CALCIUM 7.3 mg/dL (8.5-10.1); CREATININE 2.9 mg/dL (0.55-1.3); POTASSIUM 4.9 mmol/L (3.5-5.1); TOT PROT 7.2 g/dl (6.4-8.2)
--- NOTE | 2019-02-22 08:25 | PN ---
Teaching Attending Note Name of Resident: Tobi Gallo ATTENDING PHYSICIAN STATEMENT I saw and evaluated the patient. I reviewed the resident's note and discussed the case with the resident. I agree with the resident's findings and plan as documented. SUBJECTIVE: Patient is c/o having scrotal heaviness. Vital Signs Temperature 98 F 02/22/19 05:45 Pulse Rate 92 H 02/22/19 05:45 Respiratory Rate 20 02/22/19 05:45 Blood Pressure 118/77 02/22/19 05:45 O2 Sat by Pulse Oximetry (%) 95 02/21/19 21:00 GENERAL: The patient is awake, alert, and fully oriented, in no acute distress. HEAD: Normal with no signs of trauma. EYES: PERRL, extraocular movements intact, sclera anicteric, conjunctiva clear. ENT: Ears normal, oropharynx clear without exudates, moist mucous membranes. NECK: Trachea midline, full range of motion, supple. LUNGS: Breath sounds equal, clear to auscultation bilaterally, no wheezes, no crackles, no accessory muscle use. HEART: irregularly-irregular rate controlled , S1, S2 positive, no murmur or rub or gallop. ABDOMEN: Soft, nontender, nondistended, normoactive bowel sounds, no guarding, no rebound, no hepatosplenomegaly, no masses. EXTREMITIES: 2+ pulses, warm,chronic lymphaedema, with decreased oozing NEUROLOGICAL: Cranial nerves II through XII grossly intact. Normal speech, gait not observed. PSYCH: Normal mood, normal affect. SKIN: Warm, dry, normal turgor, BL leg wounds due to having chronic lymphaedema. :enlarged scrotum with inverted penis CBCD WBC 4.7 K/mm3 (4.0-10.0) 02/22/19 05:50 RBC 3.20 M/mm3 (4.00-5.60) L 02/22/19 05:50 Hgb 8.7 GM/dL (11.7-16.9) L 02/22/19 05:50 Hct 27.1 % (35.4-49) L 02/22/19 05:50 MCV 84.7 fl (80-96) 02/22/19 05:50 MCHC 32.0 g/dl (32.0-35.9) 02/22/19 05:50 RDW 19.5 % (11.9-15.9) H 02/22/19 05:50 Plt Count 155 K/MM3 (134-434) 02/22/19 05:50 MPV 8.9 fl (7.5-11.1) 02/22/19 05:50 CMP Sodium 140 mmol/L (136-145) 02/22/19 05:50 Potassium 4.9 mmol/L (3.5-5.1) 02/22/19 05:50 Chloride 104 mmol/L (98-107) 02/22/19 05:50 Carbon Dioxide 30 mmol/L (21-32) 02/22/19 05:50 Anion Gap 6 MMOL/L (8-16) L 02/22/19 05:50 BUN 49.9 mg/dL (7-18) H 02/22/19 05:50 Creatinine 2.9 mg/dL (0.55-1.3) H 02/22/19 05:50 Random Glucose 85 mg/dL (74-106) 02/22/19 05:50 Calcium 7.3 mg/dL (8.5-10.1) L 02/22/19 05:50 Total Bilirubin 0.8 mg/dL (0.2-1) 02/22/19 05:50 AST 21 U/L (15-37) 02/22/19 05:50 ALT 14 U/L (13-61) 02/22/19 05:50 Alkaline Phosphatase 205 U/L (45-117) H 02/22/19 05:50 Total Protein 7.2 g/dl (6.4-8.2) 02/22/19 05:50 Albumin 2.3 g/dl (3.4-5.0) L 02/22/19 05:50 Current Medications Generic Name Dose Route Start Last Admin Trade Name Freq PRN Reason Stop Dose Admin Acetaminophen 650 mg 02/21/19 07:10 Tylenol - PO Q6H PRN PAIN LEVEL 6-10 Allopurinol 300 mg 02/16/19 10:00 02/21/19 13:15 Zyloprim - PO 300 mg DAILY MICHELLE Administration Apixaban 5 mg 02/21/19 14:56 02/21/19 21:26 Eliquis - PO 5 mg BID MICHELLE Administration Carvedilol 6.25 mg 02/19/19 22:00 02/21/19 21:26 Coreg - PO 6.25 mg BID MICHELLE Administration Folic Acid 1 mg 02/16/19 10:00 02/21/19 13:15 Folic Acid - PO 1 mg DAILY MICHELLE Administration Furosemide 40 mg 02/21/19 12:00 02/21/19 13:51 Lasix Injection - IVPUSH Not Given DAILY MICHELLE Hydralazine HCl 10 mg 02/20/19 11:30 02/21/19 21:26 Apresoline - PO 10 mg BID MICHELLE Administration Isosorbide Mononitrate 30 mg 02/20/19 11:30 02/21/19 13:14 Imdur - PO 30 mg DAILY MICHELLE Administration Nystatin 1 applic 02/15/19 22:00 02/21/19 22:57 Nystop Powder - TP 1 applic BID MICHELLE Administration Sodium Zirconium Cyclosilicate 10 gm 02/22/19 10:00 Lokelma PO DAILY MICHELLE Home Medications Medication Instructions Recorded Furosemide [Lasix] 40 mg PO DAILY 06/24/16 Allopurinol 300 mg PO DAILY 06/07/18 Folic Acid 1 mg PO DAILY 06/07/18 Aspirin [ASA -] 81 mg PO DAILY #30 tab.chew 06/23/18 Sodium Polystyrene Sulfonate 30 gm PO Q72H 12/21/18 [Kayexalate -] Diltiazem HCl [Diltiazem 24Hr ER 180 mg PO DAILY 02/15/19 (Cd)] Ferric Citrate [Auryxia] 210 mg PO BID 02/15/19 CXR: CM, with congestive changes ASSESSMENT AND PLAN: Patient is a 58yo male with h/o lymphedema, diastolic CHF, A fib, HTN, CKD III , presented with increased LE and scrotal edema # Acute systolic with diastolic CHF, decreased the lasix dose to 40mg IV , Is and Os, Weight, fluid restriction to 1.0 Liter day, Echo reviewed . low EF of 30-35 %, continue hydralazine and Imdur as per . continue Coreg , and discontinue cardizem. # Hydrocele : patient is very uncomfortable, will get urology to see him. # Hx of Hyperkalemia on kayexalate chnaged to Lokelma as per nephro. cannot be added an ACEI or ARB, therefore added Hydralazine , follow Renal US. # A fib rate controlled now : continue coreg 6.25mg bid , Eliquis 5.0mg bid as per cardio. # Tinea cruris: cont Nystatin powder # H/o CKD: Cr at base line . Monitor with diuresis # Prolonged QTC: avoid prolonging agents # Chronic Lymphedema of lower extremities: xeroform dressing as per wound care , f/u with wound care clinic as out pt DVT Px: Tiffanie
[2019-02-22] MEDS ORDERED: SODIUM ZIRCONIUM CYCLOSILICATE (LOKELMA) 5 GM PACKET PO SCH (10:00)
[2019-02-22] MEDS: ALLOPURINOL 300 MG TABLET (FP) PO SCH (10:07)
[2019-02-22] MEDS: APIXABAN 5 MG TABLET PO SCH ×2 (10:07→21:08)
[2019-02-22] MEDS: CARVEDILOL 6.25 MG TABLET (FP) PO SCH ×2 (10:07→21:08)
[2019-02-22] MEDS: hydrALAZINE HCL 10 MG TABLET PO SCH ×2 (10:07→21:08)
[2019-02-22] MEDS: FUROSEMIDE 40 MG/4 ML INJECTABLE VIAL IVPUSH SCH (10:07)
[2019-02-22] MEDS: ISOSORBIDE MONONITRATE 30 MG TAB.SR.24H (FP) PO SCH (10:07)
[2019-02-22] MEDS: FOLIC ACID 1 MG TABLET (FP) PO SCH (10:07)
[2019-02-22] MEDS: NYSTATIN POWDER 100,000 UNITS/GM - 15 GM TOPICAL POWDER TP SCH ×2 (10:08→21:09)
--- NOTE | 2019-02-22 10:42 | PN ---
Progress Note, Physician History of Present Illness: Patient denies chest pain or SOB, painless scrotal edema slowly improving with diuresis. - Current Medication List Current Medications: Active Medications Acetaminophen (Tylenol -) 650 mg PO Q6H PRN PRN Reason: PAIN LEVEL 6-10 Allopurinol (Zyloprim -) 300 mg PO DAILY [facility] Last Admin: 02/22/19 10:07 Dose: 300 mg Apixaban (Eliquis -) 5 mg PO BID [facility] Last Admin: 02/22/19 10:07 Dose: 5 mg Carvedilol (Coreg -) 6.25 mg PO BID [facility] Last Admin: 02/22/19 10:07 Dose: 6.25 mg Folic Acid (Folic Acid -) 1 mg PO DAILY [facility] Last Admin: 02/22/19 10:07 Dose: 1 mg Furosemide (Lasix Injection -) 40 mg IVPUSH DAILY [facility] Last Admin: 02/22/19 10:07 Dose: 40 mg Hydralazine HCl (Apresoline -) 10 mg PO BID [facility] Last Admin: 02/22/19 10:07 Dose: 10 mg Isosorbide Mononitrate (Imdur -) 30 mg PO DAILY [facility] Last Admin: 02/22/19 10:07 Dose: 30 mg Nystatin (Nystop Powder -) 1 applic TP BID [facility] Last Admin: 02/22/19 10:08 Dose: 1 applic Sodium Zirconium Cyclosilicate (Lokelma) 10 gm PO DAILY [facility] Last Admin: 02/22/19 10:08 Dose: 10 gm - Objective Vital Signs: Vital Signs Temperature 98 F 02/22/19 05:45 Pulse Rate 92 H 02/22/19 05:45 Respiratory Rate 20 02/22/19 05:45 Blood Pressure 118/77 02/22/19 05:45 O2 Sat by Pulse Oximetry (%) 95 02/21/19 21:00 Constitutional: Yes: No Distress, Calm Neck: Yes: Supple, Tenderness Cardiovascular: Yes: Pulse Irregular Respiratory: Yes: Regular, Diminished Gastrointestinal: Yes: Normal Bowel Sounds, Soft Edema: Yes Labs: CBC, BMP 02/22/19 05:50 02/22/19 05:50 - ....Imaging EKG: Report Reviewed (Tele: Afib) Problem List - Problems (1) Paroxysmal atrial fibrillation with rapid ventricular response Code(s): I48.0 - PAROXYSMAL ATRIAL FIBRILLATION (2) Anasarca Code(s): R60.1 - GENERALIZED EDEMA (3) Congestive heart failure Code(s): I50.9 - HEART FAILURE, UNSPECIFIED Qualifiers: Heart failure type: combined systolic and diastolic Heart failure chronicity: acute on chronic Qualified Code(s): I50.43 - Acute on chronic combined systolic (congestive) and diastolic (congestive) heart failure (4) Lymphedema of both lower extremities Code(s): I89.0 - LYMPHEDEMA, NOT ELSEWHERE CLASSIFIED (5) Renal insufficiency Code(s): N28.9 - DISORDER OF KIDNEY AND URETER, UNSPECIFIED (6) Anemia Code(s): D64.9 - ANEMIA, UNSPECIFIED Qualifiers: Anemia type: due to chronic kidney disease Chronic kidney disease stage: stage 3 (moderate) Qualified Code(s): N18.3 - Chronic kidney disease, stage 3 (moderate); D63.1 - Anemia in chronic kidney disease (7) Idiopathic chronic venous hypertension of both lower extremities with inflammation Code(s): I87.323 - CHRONIC VENOUS HTN W INFLAMMATION OF BILATERAL LOW EXTRM Assessment/Plan 02/20/2019 Scrotal US: Moderate bilateral hydroceles with diffuse scrotal soft tissue edema 02/18/2019 Echo: Normal LV size with moderate-severe decreased LVEF 30-35%, possible RV noncompaction, mild-mod decreased RV fxn, mild LEYDA, mod MR, mild- mod TR RVSP 46 mmHg, mod AR, mild MO Ao 4.7 cm 03/05/2018 Renal US: No hydro or calculi, bilateral increased renal cortical echogenicity c/w chronic renal parenchymal disease 1. Acute on chronic sysolic/diastolic heart failure (possible non-compaction) with scrotal edema resolving 2. Paroxysmal AF [id number] score of 2 3. Hypertension 4. Acute on CKD with hyperkalemia 5. Anemia 6. Chronic lymphedema 7. Mod ao dilatation 4.7 cm 8. Moderate bilateral hydroceles PLAN: 1. Decrease IV diuresis with monitoring renal function and electrolytes 2. Continue Eliquis 5 mg BID given elevated risk score 3. Carvedilol 6.25 mg BID and uptitrate. ACEI or ARB once renal function and K stabilizes, receiving Lokelma 10 qd, BiDil as alternative 4. Echocardiogram was reviewed (moderate to severe LVEF 30-35%, RV systolic dysfunction and possible non-compaction, moderate MR, moderate AR, mild to moderate TR and mild MO) 5. Compression therapy and wound care 6. Cardiac MRI as outpatient to further elucidate cardiomyopathy and aortic dilatation 7. Urology input regarding hydrocele repair
--- NOTE | 2019-02-22 14:46 | PN ---
Progress Note, Physician History of Present Illness: Pt seen and examined at bedside. He is awake and alert. He complains of scrotal swelling. - Current Medication List Current Medications: Active Medications Acetaminophen (Tylenol -) 650 mg PO Q6H PRN PRN Reason: PAIN LEVEL 6-10 Allopurinol (Zyloprim -) 300 mg PO DAILY [facility] Last Admin: 02/22/19 10:07 Dose: 300 mg Apixaban (Eliquis -) 5 mg PO BID [facility] Last Admin: 02/22/19 10:07 Dose: 5 mg Carvedilol (Coreg -) 6.25 mg PO BID [facility] Last Admin: 02/22/19 10:07 Dose: 6.25 mg Folic Acid (Folic Acid -) 1 mg PO DAILY [facility] Last Admin: 02/22/19 10:07 Dose: 1 mg Furosemide (Lasix Injection -) 40 mg IVPUSH DAILY [facility] Last Admin: 02/22/19 10:07 Dose: 40 mg Hydralazine HCl (Apresoline -) 10 mg PO BID [facility] Last Admin: 02/22/19 10:07 Dose: 10 mg Isosorbide Mononitrate (Imdur -) 30 mg PO DAILY [facility] Last Admin: 02/22/19 10:07 Dose: 30 mg Nystatin (Nystop Powder -) 1 applic TP BID [facility] Last Admin: 02/22/19 10:08 Dose: 1 applic Sodium Zirconium Cyclosilicate (Lokelma) 10 gm PO DAILY [facility] Last Admin: 02/22/19 10:08 Dose: 10 gm - Objective Vital Signs: Vital Signs Temperature 98.1 F 02/22/19 10:00 Pulse Rate 82 02/22/19 10:00 Respiratory Rate 18 02/22/19 10:00 Blood Pressure 118/86 02/22/19 10:00 O2 Sat by Pulse Oximetry (%) 99 02/22/19 09:00 Constitutional: Yes: Calm Eyes: Yes: Conjunctiva Clear HENT: Yes: Atraumatic Cardiovascular: Yes: S1, S2 Respiratory: Yes: CTA Bilaterally Gastrointestinal: Yes: Soft, Abdomen, Obese Genitourinary: Yes: Scrotal Edema Musculoskeletal: Yes: Joint Stiffness Edema: Yes Edema: LLE: 2+, RLE: 2+ Integumentary: Yes: Venous Stasis Changes Neurological: Yes: Oriented Labs: CBC, BMP 02/22/19 05:50 02/22/19 05:50 Problem List - Problems (1) Congestive heart failure Code(s): I50.9 - HEART FAILURE, UNSPECIFIED Qualifiers: Heart failure type: combined systolic and diastolic Heart failure chronicity: acute on chronic Qualified Code(s): I50.43 - Acute on chronic combined systolic (congestive) and diastolic (congestive) heart failure (2) Lymphedema of both lower extremities Code(s): I89.0 - LYMPHEDEMA, NOT ELSEWHERE CLASSIFIED (3) Renal insufficiency Code(s): N28.9 - DISORDER OF KIDNEY AND URETER, UNSPECIFIED Assessment/Plan Current Medications Generic Name Dose Route Start Last Admin Trade Name Freq PRN Reason Stop Dose Admin Acetaminophen 650 mg 02/21/19 07:10 Tylenol - PO Q6H PRN PAIN LEVEL 6-10 Allopurinol 300 mg 02/16/19 10:00 02/22/19 10:07 Zyloprim - PO 300 mg DAILY [facility] Administration Apixaban 5 mg 02/21/19 14:56 02/22/19 10:07 Eliquis - PO 5 mg BID [facility] Administration Carvedilol 6.25 mg 02/19/19 22:00 02/22/19 10:07 Coreg - PO 6.25 mg BID [facility] Administration Folic Acid 1 mg 02/16/19 10:00 02/22/19 10:07 Folic Acid - PO 1 mg DAILY [facility] Administration Furosemide 40 mg 02/21/19 12:00 02/22/19 10:07 Lasix Injection - IVPUSH 40 mg DAILY [facility] Administration Hydralazine HCl 10 mg 02/20/19 11:30 02/22/19 10:07 Apresoline - PO 10 mg BID [facility] Administration Isosorbide Mononitrate 30 mg 02/20/19 11:30 02/22/19 10:07 Imdur - PO 30 mg DAILY [facility] Administration Nystatin 1 applic 02/15/19 22:00 02/22/19 10:08 Nystop Powder - TP 1 applic BID [facility] Administration Impression 1. ckd 2. josephine 3. hyperkalemia 4. lymphedema 5. chf 6. 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
--- NOTE | 2019-02-22 15:55 | PN ---
Physical Exam: SUBJECTIVE: Patient seen and examined in the morning. No acute events overnight. No complaints of chest pain, shortness of breath, no abdominal pain, no nausea, vomiting, diarrhea, no fever, no chills. OBJECTIVE: Vital Signs Period Temp Pulse Resp BP Sys/[place] Pulse Ox Last 24 Hr 97.5 F-98.1 F 82-99 18-20 115-120/68-86 95-99 GENERAL: Awake, alert, and fully oriented, in no acute distress. HEAD: Normal with no signs of trauma. EYES: Pupils equal, round and reactive to light, extraocular movements intact, sclera anicteric, conjunctiva clear. NECK: Normal range of motion, supple LUNGS: Breath sounds equal, clear to auscultation bilaterally. No wheezes, and no crackles. HEART: S1 S2, no murmurs rubs or gallops appreciated. ABDOMEN: Soft, nontender, not distended, normoactive bowel sounds. MUSCULOSKELETAL: Normal range of motion at all joints. No bony deformities or tenderness. UPPER EXTREMITIES: 2+ pulses, warm, well-perfused. No cyanosis. No clubbing. No peripheral edema. LOWER EXTREMITIES: 2+ pitting edema tracking up to knee. Left lower extremity has one large wound with no pus or bleeding. Right lower extremity has several wounds with no pus or bleeding. Dressing was rewrapped and in place. Thighs are less edematous, +1 NEUROLOGICAL: Cranial nerves II-XII intact. Normal speech G/U: Scrotal swelling, improved from admission on 02/15 but looks to be the same as yesterday. Laboratory Results - last 24 hr CBC, BMP 02/22/19 05:50 02/22/19 05:50 Active Medications Generic Name Dose Route Start Last Admin Trade Name Freq PRN Reason Stop Dose Admin Acetaminophen 650 mg 02/21/19 07:10 Tylenol - PO Q6H PRN PAIN LEVEL 6-10 Allopurinol 300 mg 02/16/19 10:00 02/22/19 10:07 Zyloprim - PO 300 mg DAILY [facility] Administration Apixaban 5 mg 02/21/19 14:56 02/22/19 10:07 Eliquis - PO 5 mg BID [facility] Administration Carvedilol 6.25 mg 02/19/19 22:00 02/22/19 10:07 Coreg - PO 6.25 mg BID [facility] Administration Folic Acid 1 mg 02/16/19 10:00 02/22/19 10:07 Folic Acid - PO 1 mg DAILY [facility] Administration Furosemide 40 mg 02/21/19 12:00 02/22/19 10:07 Lasix Injection - IVPUSH 40 mg DAILY [facility] Administration Hydralazine HCl 10 mg 02/20/19 11:30 02/22/19 10:07 Apresoline - PO 10 mg BID [facility] Administration Isosorbide Mononitrate 30 mg 02/20/19 11:30 02/22/19 10:07 Imdur - PO 30 mg DAILY [facility] Administration Nystatin 1 applic 02/15/19 22:00 02/22/19 10:08 Nystop Powder - TP 1 applic BID [facility] Administration Sodium Zirconium Cyclosilicate 10 gm 02/25/19 14:46 Lokelma PO MOWEFR [facility] ASSESSMENT/PLAN: 58M with PMH of CHF, afib (not on Anticoagulation), HTN, chronic venous stasis ulcers secondary to lymphedema presents with edema in the lower extremity and scrotum likely secondary to CHF exacerbation. 1) Lower Extremity Edema and scrotal swelling secondary to CHF exacerbation -Lasix 40 mg IV Daily-patient creatinine is steadily increasing. -Monitor In and Out: Balance of -1250 ml -Echo showed EF of 30-35% -Carvedilol 6.25 mg BID PO -Hydralazine 10 mg PO BID -Isorbiside mononitrate 30 mg PO Daily -Scrotal U/S- Bilateral hydrocele, scrotal soft tissue edema. -Urology consulted,appreciate recs. -Fluid Restriction 1.5 L/24 hr -Lactose, sodium restricted diet, and fluid restriction 2)Afib with RVR -Not on anticoagulation medication at home -Continue telemetry monitoring -Eliquis 5mg BID PO -Cardiology consulted, appreciate recs 3)Tinea Cruris -Nystatin powder 4)CKD stage 3 -Creatinine increasing. Lasix dose cut in half to daily. -Nephrology consulted, appreciate recs. -Lolkema 10 gram daily -F/U bladder and kidney US 5)Chronic venous stasis ulcers secondary to lymphedema -Dressing changes done daily F: No IV fluids,on restricted fluid intake. E: Monitor BMP N: Sodium controlled diet Dispo:admitted to telemetry Visit type - Emergency Visit Emergency Visit: Yes ED Registration Date: 02/15/19 Care time: The patient presented to the Emergency Department on the above date and was hospitalized for further evaluation of their emergent condition. - New Patient This patient is new to me today: No - Critical Care Critical Care patient: No ATTENDING PHYSICIAN STATEMENT I saw and evaluated the patient. I reviewed the resident's note and discussed the case with the resident. I agree with the resident's findings and plan as documented. SUBJECTIVE: OBJECTIVE: ASSESSMENT AND PLAN:
--- NOTE | 2019-02-23 09:17 | PN ---
Progress Note, Physician History of Present Illness: 58y M history of diastolic CHF, afib (not on a/c), hypertension, chronic venous stasis ulcers secondary to lymphedema, CKD III, anemia of CKD presents with complaint of scrotal swelling. Patient notes that he is been having lower extremity edema since childhood he sees wound care for dressing changes. Today he was at wound care when he mentioned that he was having scrotal swelling with mild dyspnea on exertion so was sent to the ER for evaluation. The patient denies any pain to the scrotum however he states that it is so swollen that he is unable to control his urination. Patient denies any fever, chills, dysuria, leg pain, shortness of breath, chest pain, abdominal pain, diarrhea, orthopnea, nausea, vomiting, palpitations, focal weakness, near or true syncope. PMD: Cecilio/Cards @ [facility] - Clem Barry MD Vascular/wound - Dr. Samira Eric Renal: Dr. Gayle - Current Medication List Current Medications: Active Medications Acetaminophen (Tylenol -) 650 mg PO Q6H PRN PRN Reason: PAIN LEVEL 6-10 Allopurinol (Zyloprim -) 300 mg PO DAILY [facility] Last Admin: 02/22/19 10:07 Dose: 300 mg Apixaban (Eliquis -) 5 mg PO BID [facility] Last Admin: 02/22/19 21:08 Dose: 5 mg Carvedilol (Coreg -) 6.25 mg PO BID [facility] Last Admin: 02/22/19 21:08 Dose: 6.25 mg Folic Acid (Folic Acid -) 1 mg PO DAILY [facility] Last Admin: 02/22/19 10:07 Dose: 1 mg Furosemide (Lasix Injection -) 40 mg IVPUSH DAILY [facility] Last Admin: 02/22/19 10:07 Dose: 40 mg Hydralazine HCl (Apresoline -) 10 mg PO BID [facility] Last Admin: 02/22/19 21:08 Dose: 10 mg Isosorbide Mononitrate (Imdur -) 30 mg PO DAILY [facility] Last Admin: 02/22/19 10:07 Dose: 30 mg Nystatin (Nystop Powder -) 1 applic TP BID [facility] Last Admin: 02/22/19 21:09 Dose: 1 applic Sodium Zirconium Cyclosilicate (Lokelma) 10 gm PO MOWEFR [facility] - Objective Vital Signs: Vital Signs Temperature 97.9 F 02/23/19 04:37 Pulse Rate 101 H 02/23/19 04:37 Respiratory Rate 18 02/23/19 04:37 Blood Pressure 115/77 02/23/19 04:37 O2 Sat by Pulse Oximetry (%) 95 02/22/19 20:25 Eyes: Yes: WNL, Conjunctiva Clear, EOM Intact HENT: Yes: WNL, Atraumatic, Normocephalic Neck: Yes: WNL, Supple, Trachea Midline Cardiovascular: Yes: Pulse Irregular Respiratory: Yes: Diminished Gastrointestinal: Yes: WNL, Normal Bowel Sounds Genitourinary: Yes: Scrotal Edema Musculoskeletal: Yes: WNL Extremities: Yes: WNL Edema: Yes Edema: LLE: 2+, RLE: 2+ Integumentary: Yes: WNL Neurological: Yes: WNL, Alert, Oriented ...Motor Strength: WNL Psychiatric: Yes: WNL Labs: CBC, BMP 02/22/19 05:50 02/22/19 05:50 Problem List - Problems (1) Congestive heart failure Code(s): I50.9 - HEART FAILURE, UNSPECIFIED Qualifiers: Heart failure type: combined systolic and diastolic Heart failure chronicity: acute on chronic Qualified Code(s): I50.43 - Acute on chronic combined systolic (congestive) and diastolic (congestive) heart failure (2) Lymphedema of both lower extremities Code(s): I89.0 - LYMPHEDEMA, NOT ELSEWHERE CLASSIFIED (3) NYHA class 2 acute on chronic systolic heart failure Code(s): I50.23 - ACUTE ON CHRONIC SYSTOLIC (CONGESTIVE) HEART FAILURE (4) Paroxysmal atrial fibrillation with rapid ventricular response Code(s): I48.0 - PAROXYSMAL ATRIAL FIBRILLATION (5) Scrotal edema Code(s): N50.89 - OTHER SPECIFIED DISORDERS OF THE MALE GENITAL ORGANS (6) Anasarca Code(s): R60.1 - GENERALIZED EDEMA (7) Renal insufficiency Code(s): N28.9 - DISORDER OF KIDNEY AND URETER, UNSPECIFIED (8) Anemia Code(s): D64.9 - ANEMIA, UNSPECIFIED Qualifiers: Anemia type: due to chronic kidney disease Chronic kidney disease stage: stage 3 (moderate) Qualified Code(s): N18.3 - Chronic kidney disease, stage 3 (moderate); D63.1 - Anemia in chronic kidney disease (9) Degenerative joint disease of knee, left Code(s): M17.12 - UNILATERAL PRIMARY OSTEOARTHRITIS, LEFT KNEE Qualifiers: Osteoarthritis type: unspecified Qualified Code(s): M17.12 - Unilateral primary osteoarthritis, left knee (10) Dilated aortic root Code(s): I77.810 - THORACIC AORTIC ECTASIA (11) Idiopathic chronic venous hypertension of both lower extremities with inflammation Code(s): I87.323 - CHRONIC VENOUS HTN W INFLAMMATION OF BILATERAL LOW EXTRM (12) Iron deficiency anemia Code(s): D50.9 - IRON DEFICIENCY ANEMIA, UNSPECIFIED (13) Lymphedema Code(s): I89.0 - LYMPHEDEMA, NOT ELSEWHERE CLASSIFIED (14) Lymphedema Code(s): I89.0 - LYMPHEDEMA, NOT ELSEWHERE CLASSIFIED (15) Morbid obesity Code(s): E66.01 - MORBID (SEVERE) OBESITY DUE TO EXCESS CALORIES (16) Venous insufficiency of both lower extremities Code(s): I87.2 - VENOUS INSUFFICIENCY (CHRONIC) (PERIPHERAL) (17) Venous stasis dermatitis of both lower extremities Code(s): I87.2 - VENOUS INSUFFICIENCY (CHRONIC) (PERIPHERAL) (18) Venous stasis ulcers of both lower extremities Code(s): I83.019 - VARICOSE VEINS OF RIGHT LOWER EXTREMITY W ULCER OF UNSP SITE ; I83.029 - VARICOSE VEINS OF LEFT LOWER EXTREMITY W ULCER OF UNSP SITE (19) Venous ulcer of left lower extremity without varicose veins Code(s): I87.2 - VENOUS INSUFFICIENCY (CHRONIC) (PERIPHERAL); L97.929 - NON-PRS CHRONIC ULC UNSP PRT OF L LOW LEG W UNSP SEVERITY (20) Venous ulcer of right leg Code(s): I83.019 - VARICOSE VEINS OF RIGHT LOWER EXTREMITY W ULCER OF UNSP SITE ; L97.919 - NON-PRS CHRONIC ULC UNSP PRT OF R LOW LEG W UNSP SEVERITY (21) Abnormal stress test Code(s): R94.39 - ABNORMAL RESULT OF OTHER CARDIOVASCULAR FUNCTION STUDY (22) Bilateral lower leg cellulitis Code(s): L03.116 - CELLULITIS OF LEFT LOWER LIMB; L03.115 - CELLULITIS OF RIGHT LOWER LIMB (23) Cellulitis and abscess of leg Code(s): L02.419 - CUTANEOUS ABSCESS OF LIMB, UNSPECIFIED; L03.119 - CELLULITIS OF UNSPECIFIED PART OF LIMB (24) Constipation Code(s): K59.00 - CONSTIPATION, UNSPECIFIED (25) Dehydration Code(s): E86.0 - DEHYDRATION (26) Fever Code(s): R50.9 - FEVER, UNSPECIFIED (27) Fungal infection of nail Code(s): B35.1 - TINEA UNGUIUM (28) Hyperkalemia Code(s): E87.5 - HYPERKALEMIA (29) Idiopathic chronic venous hypertension of right lower extremity with ulcer and inflammation Code(s): I87.331 - CHRONIC VENOUS HTN W ULCER AND INFLAMMATION OF R LOW EXTREM; L97.919 - NON-PRS CHRONIC ULC UNSP PRT OF R LOW LEG W UNSP SEVERITY (30) Pain in toe of left foot Code(s): M79.675 - PAIN IN LEFT TOE(S) (31) Pain in toe of right foot Code(s): M79.674 - PAIN IN RIGHT TOE(S) (32) Swelling of lower extremity Code(s): M79.89 - OTHER SPECIFIED SOFT TISSUE DISORDERS (33) Troponin level elevated Code(s): R74.8 - ABNORMAL LEVELS OF OTHER SERUM ENZYMES (34) Venous insufficiency Code(s): I87.2 - VENOUS INSUFFICIENCY (CHRONIC) (PERIPHERAL) (35) Wound infection Code(s): T14.8XXA - OTHER INJURY OF UNSPECIFIED BODY REGION, INITIAL ENCOUNTER; L08.9 - LOCAL INFECTION OF THE SKIN AND SUBCUTANEOUS TISSUE, UNSP (36) Bronchitis, acute Code(s): J20.9 - ACUTE BRONCHITIS, UNSPECIFIED Assessment/Plan Assessment/Plan 02/20/2019 Scrotal US: Moderate bilateral hydroceles with diffuse scrotal soft tissue edema 02/18/2019 Echo: Normal LV size with moderate-severe decreased LVEF 30-35%, possible RV noncompaction, mild-mod decreased RV fxn, mild LEYDA, mod MR, mild- mod TR RVSP 46 mmHg, mod AR, mild AR Ao 4.7 cm 03/05/2018 Renal US: No hydro or calculi, bilateral increased renal cortical echogenicity c/w chronic renal parenchymal disease 1. Acute on chronic sysolic/diastolic heart failure (possible non-compaction) with scrotal edema resolving 2. Paroxysmal AF [id number] score of 2 3. Hypertension 4. Acute on CKD with hyperkalemia 5. Anemia 6. Chronic lymphedema 7. Mod ao dilatation 4.7 cm 8. Moderate bilateral hydroceles 9.Non sustained VT PLAN: 1. Decrease IV diuresis with monitoring renal function and electrolytes/Mg 2. Continue Eliquis 5 mg BID given elevated risk score 3. Carvedilol 6.25 mg BID and uptitrate. ACEI or ARB once renal function and K stabilizes, receiving Lokelma 10 qd, BiDil as alternative 4. Echocardiogram was reviewed (moderate to severe LVEF 30-35%, RV systolic dysfunction and possible non-compaction, moderate MR, moderate AR, mild to moderate TR and mild AR) 5. Compression therapy and wound care 6. Cardiac MRI as outpatient to further elucidate cardiomyopathy and aortic dilatation 7. Urology input regarding hydrocele repair coverage for dr. Smart
[2019-02-23] MEDS ORDERED: PT OWN MED DRAWER 7, Y5N ONE (09:19)
[2019-02-23] MEDS: CARVEDILOL 6.25 MG TABLET (FP) PO SCH ×2 (10:06→22:18)
[2019-02-23] MEDS: FUROSEMIDE 40 MG/4 ML INJECTABLE VIAL IVPUSH SCH (10:06)
[2019-02-23] MEDS: NYSTATIN POWDER 100,000 UNITS/GM - 15 GM TOPICAL POWDER TP SCH ×3 (10:06→22:23)
[2019-02-23] MEDS: APIXABAN 5 MG TABLET PO SCH ×2 (10:06→22:18)
[2019-02-23] MEDS: ISOSORBIDE MONONITRATE 30 MG TAB.SR.24H (FP) PO SCH (10:06)
[2019-02-23] MEDS: ALLOPURINOL 300 MG TABLET (FP) PO SCH (10:06)
[2019-02-23] MEDS: hydrALAZINE HCL 10 MG TABLET PO SCH ×2 (10:06→22:18)
[2019-02-23] MEDS: FOLIC ACID 1 MG TABLET (FP) PO SCH (10:06)
--- NOTE | 2019-02-23 11:35 | PN ---
Progress Note (short form) - Note Progress Note: Renal follow up for RAMY on CKD with volume overload Seen and examined at the bedside reports making urine sob is improved edema persists no chest pain, abd pain, fever chills Vital Signs Temperature 98.0 F 02/23/19 09:00 Pulse Rate 70 02/23/19 09:00 Respiratory Rate 18 02/23/19 09:00 Blood Pressure 110/82 02/23/19 09:00 O2 Sat by Pulse Oximetry (%) 97 02/23/19 09:00 Intake & Output 02/20/19 02/21/19 02/22/19 02/23/19 23:59 23:59 23:59 23:59 Intake Total 393 543 6904 400 Output Total 8521 047 7187 800 Balance -1250 -550 420 -400 Weight 138.799 kg 138.799 kg NAD awake and alert neck supple Dec BS RRR + edema in LE and scrotum CBC, BMP 02/22/19 05:50 02/22/19 05:50 Current Medications Acetaminophen (Tylenol -) 650 mg PO Q6H PRN PRN Reason: PAIN LEVEL 6-10 Allopurinol (Zyloprim -) 300 mg PO DAILY [facility] Last Admin: 02/23/19 10:06 Dose: 300 mg Apixaban (Eliquis -) 5 mg PO BID [facility] Last Admin: 02/23/19 10:06 Dose: 5 mg Carvedilol (Coreg -) 6.25 mg PO BID [facility] Last Admin: 02/23/19 10:06 Dose: 6.25 mg Folic Acid (Folic Acid -) 1 mg PO DAILY [facility] Last Admin: 02/23/19 10:06 Dose: 1 mg Furosemide (Lasix Injection -) 40 mg IVPUSH DAILY [facility] Last Admin: 02/23/19 10:06 Dose: 40 mg Hydralazine HCl (Apresoline -) 10 mg PO BID [facility] Last Admin: 02/23/19 10:06 Dose: 10 mg Isosorbide Mononitrate (Imdur -) 30 mg PO DAILY [facility] Last Admin: 02/23/19 10:06 Dose: 30 mg Nystatin (Nystop Powder -) 1 applic TP BID [facility] Last Admin: 02/23/19 10:06 Dose: 1 applic Sodium Zirconium Cyclosilicate (Lokelma) 10 gm PO MOWEFR [facility] Impression 1. ckd 2. ramy 3. hyperkalemia 4. lymphedema 5. chf 6. htn Plan Todays labs not resulted, ordered BMP stat continue lasix IV daily for fluid mangement Trend renal function and electrolytes daily no acute need for GALLERY OR MUSEUM CURATOR Manpreet Leon DO
[2019-02-23 12:11] LABS: BLOOD UREA NITROGEN 51.5 mg/dL (7-18); CALCIUM 7.6 mg/dL (8.5-10.1); CREATININE 2.8 mg/dL (0.55-1.3); MAGNESIUM 1.9 mg/dL (1.8-2.4)
--- NOTE | 2019-02-23 12:53 | PN ---
Physical Exam: SUBJECTIVE: Patient seen and examined. He denies SOB. OBJECTIVE: Vital Signs Period Temp Pulse Resp BP Sys/Mcfarland Pulse Ox Last 24 Hr 97.6 F-98.5 F 70-101 18-18 110-127/68-82 95-97 GENERAL: The patient is awake, alert, and fully oriented, in no acute distress. LUNGS: Breath sounds equal, clear to auscultation bilaterally, no wheezes, no crackles, no accessory muscle use. HEART: Irregularly irregular. ABDOMEN: Soft, nontender, nondistended, normoactive bowel sounds, no guarding, no rebound, no hepatosplenomegaly, no masses. EXTREMITIES: 2+ edema of both legs and scrotum. Laboratory Results - last 24 hr 02/23/19 11:35 Sodium 138 Potassium 5.0 Chloride 102 Carbon Dioxide 31 Anion Gap 5 L BUN 51.5 H Creatinine 2.8 H Est GFR (CKD-EPI)AfAm 27.18 Est GFR (CKD-EPI)NonAf 23.46 Random Glucose 79 Calcium 7.6 L Magnesium 1.9 Active Medications Generic Name Dose Route Start Last Admin Trade Name Freq PRN Reason Stop Dose Admin Acetaminophen 650 mg 02/21/19 07:10 Tylenol - PO Q6H PRN PAIN LEVEL 6-10 Allopurinol 300 mg 02/16/19 10:00 02/23/19 10:06 Zyloprim - PO 300 mg DAILY MICHELLE Administration Apixaban 5 mg 02/21/19 14:56 02/23/19 10:06 Eliquis - PO 5 mg BID MICHELLE Administration Carvedilol 6.25 mg 02/19/19 22:00 02/23/19 10:06 Coreg - PO 6.25 mg BID MICHELLE Administration Folic Acid 1 mg 02/16/19 10:00 02/23/19 10:06 Folic Acid - PO 1 mg DAILY MICHELLE Administration Furosemide 40 mg 02/21/19 12:00 02/23/19 10:06 Lasix Injection - IVPUSH 40 mg DAILY MICHELLE Administration Hydralazine HCl 10 mg 02/20/19 11:30 02/23/19 10:06 Apresoline - PO 10 mg BID MICHELLE Administration Isosorbide Mononitrate 30 mg 02/20/19 11:30 02/23/19 10:06 Imdur - PO 30 mg DAILY MICHELLE Administration Nystatin 1 applic 02/15/19 22:00 02/23/19 10:06 Nystop Powder - TP 1 applic BID MICHELLE Administration Sodium Zirconium Cyclosilicate 10 gm 02/25/19 14:46 Lokelma PO MOWEFR [facility] ASSESSMENT/PLAN: This is a 58 year old man with a history of HTN, atrial fib, chronic diastolic heart failure, chronic venous stasis of both legs with lymphedema and ulcers, stage 3 CKD, anemia, gout who presented to the ED with worsening leg swelling. 1. Acute on chronic systolic and diastolic heart failure - Improving - Continue Lasix 40 mg IV daily - Maintain fluid restriction - Monitor I&O, weight 2. Atrial fibrillation, permanent, with RVR - Rate controlled - Continue Coreg, Eliquis 3. Tinea cruris - Continue topical Nystatin powder 4. Stage 3 CKD -Creatinine stable 5. Hyperkalemia - Improved - Continue Lokelma 5. Chronic venous stasis with lymphedema and venous ulcers of both legs - Continue wound care 6. HTN - Continue Coreg, hydralazine, Lasix 7. Anemia secondary to CKD, chronic illness - Hemoglobin stable - continue to monitor 8. History of gout - Continue allopurinol 9. Bilateral hydroceles - Urology evaluation Visit type - Emergency Visit Emergency Visit: Yes ED Registration Date: 02/15/19 Care time: The patient presented to the Emergency Department on the above date and was hospitalized for further evaluation of their emergent condition. - New Patient This patient is new to me today: Yes Date on this admission: 02/23/19 - Critical Care Critical Care patient: No - Discharge Referral Referred to [facility] No
[2019-02-24 07:33] LABS: BASO % 0.7 % (0-2.0); HEMATOCRIT 25.6 % (35.4-49); HEMOGLOBIN 8.1 GM/dL (11.7-16.9); LYMPH % 15.4 % (8-40); MCH 26.8 pg (25.7-33.7); MCHC 31.6 g/dl (32.0-35.9); MEAN CELL VOLUME 84.7 fl (80-96); MEAN PLT VOLUME 9.6 fl (7.5-11.1); MONO % 11.9 % (3.8-10.2); PLATELET COUNT 155 K/MM3 (134-434); RBC 3.03 M/mm3 (4.00-5.60); RDW 19.4 % (11.9-15.9); WHITE BLOOD COUNT 4.8 K/mm3 (4.0-10.0)
[2019-02-24 08:06] LABS: BLOOD UREA NITROGEN 56.8 mg/dL (7-18); CREATININE 2.8 mg/dL (0.55-1.3); MAGNESIUM 1.9 mg/dL (1.8-2.4); POTASSIUM 5.1 mmol/L (3.5-5.1)
--- NOTE | 2019-02-24 09:12 | PN ---
Progress Note, Physician History of Present Illness: 58y M history of diastolic CHF, afib (not on a/c), hypertension, chronic venous stasis ulcers secondary to lymphedema, CKD III, anemia of CKD presents with complaint of scrotal swelling. Patient notes that he is been having lower extremity edema since childhood he sees wound care for dressing changes. Today he was at wound care when he mentioned that he was having scrotal swelling with mild dyspnea on exertion so was sent to the ER for evaluation. The patient denies any pain to the scrotum however he states that it is so swollen that he is unable to control his urination. Patient denies any fever, chills, dysuria, leg pain, shortness of breath, chest pain, abdominal pain, diarrhea, orthopnea, nausea, vomiting, palpitations, focal weakness, near or true syncope. PMD: Cecilio/Cards @ [facility] - Clem Barry MD Vascular/wound - Dr. Samira Eric Renal: Dr. Gayle - Current Medication List Current Medications: Active Medications Acetaminophen (Tylenol -) 650 mg PO Q6H PRN PRN Reason: PAIN LEVEL 6-10 Allopurinol (Zyloprim -) 300 mg PO DAILY [facility] Last Admin: 02/23/19 10:06 Dose: 300 mg Apixaban (Eliquis -) 5 mg PO BID [facility] Last Admin: 02/23/19 22:18 Dose: 5 mg Carvedilol (Coreg -) 6.25 mg PO BID [facility] Last Admin: 02/23/19 22:18 Dose: 6.25 mg Folic Acid (Folic Acid -) 1 mg PO DAILY [facility] Last Admin: 02/23/19 10:06 Dose: 1 mg Furosemide (Lasix Injection -) 40 mg IVPUSH DAILY [facility] Last Admin: 02/23/19 10:06 Dose: 40 mg Hydralazine HCl (Apresoline -) 10 mg PO BID [facility] Last Admin: 02/23/19 22:18 Dose: 10 mg Isosorbide Mononitrate (Imdur -) 30 mg PO DAILY [facility] Last Admin: 02/23/19 10:06 Dose: 30 mg Nystatin (Nystop Powder -) 1 applic TP BID [facility] Last Admin: 02/23/19 22:23 Dose: Not Given Sodium Zirconium Cyclosilicate (Lokelma) 10 gm PO MOWEFR [facility] - Objective Vital Signs: Vital Signs Temperature 97.4 F L 02/24/19 08:35 Pulse Rate 98 H 02/24/19 08:35 Respiratory Rate 18 02/24/19 08:35 Blood Pressure 112/78 02/24/19 08:35 O2 Sat by Pulse Oximetry (%) 96 02/23/19 21:00 Eyes: Yes: WNL, Conjunctiva Clear, EOM Intact HENT: Yes: WNL, Atraumatic, Normocephalic Neck: Yes: WNL, Supple, Trachea Midline Cardiovascular: Yes: WNL, Regular Rate and Rhythm, Murmur Respiratory: Yes: WNL, Regular, CTA Bilaterally Gastrointestinal: Yes: WNL, Normal Bowel Sounds Genitourinary: Yes: WNL Musculoskeletal: Yes: WNL Extremities: Yes: WNL Edema: Yes Integumentary: Yes: WNL Neurological: Yes: WNL, Alert, Oriented ...Motor Strength: WNL Psychiatric: Yes: WNL Labs: CBC, BMP 02/24/19 05:50 02/24/19 05:50 Problem List - Problems (1) Congestive heart failure Code(s): I50.9 - HEART FAILURE, UNSPECIFIED Qualifiers: Heart failure type: combined systolic and diastolic Heart failure chronicity: acute on chronic Qualified Code(s): I50.43 - Acute on chronic combined systolic (congestive) and diastolic (congestive) heart failure (2) Lymphedema of both lower extremities Code(s): I89.0 - LYMPHEDEMA, NOT ELSEWHERE CLASSIFIED (3) NYHA class 2 acute on chronic systolic heart failure Code(s): I50.23 - ACUTE ON CHRONIC SYSTOLIC (CONGESTIVE) HEART FAILURE (4) Paroxysmal atrial fibrillation with rapid ventricular response Code(s): I48.0 - PAROXYSMAL ATRIAL FIBRILLATION (5) Scrotal edema Code(s): N50.89 - OTHER SPECIFIED DISORDERS OF THE MALE GENITAL ORGANS (6) Anasarca Code(s): R60.1 - GENERALIZED EDEMA (7) Renal insufficiency Code(s): N28.9 - DISORDER OF KIDNEY AND URETER, UNSPECIFIED (8) Anemia Code(s): D64.9 - ANEMIA, UNSPECIFIED Qualifiers: Anemia type: due to chronic kidney disease Chronic kidney disease stage: stage 3 (moderate) Qualified Code(s): N18.3 - Chronic kidney disease, stage 3 (moderate); D63.1 - Anemia in chronic kidney disease (9) Degenerative joint disease of knee, left Code(s): M17.12 - UNILATERAL PRIMARY OSTEOARTHRITIS, LEFT KNEE Qualifiers: Osteoarthritis type: unspecified Qualified Code(s): M17.12 - Unilateral primary osteoarthritis, left knee (10) Dilated aortic root Code(s): I77.810 - THORACIC AORTIC ECTASIA (11) Idiopathic chronic venous hypertension of both lower extremities with inflammation Code(s): I87.323 - CHRONIC VENOUS HTN W INFLAMMATION OF BILATERAL LOW EXTRM (12) Iron deficiency anemia Code(s): D50.9 - IRON DEFICIENCY ANEMIA, UNSPECIFIED (13) Lymphedema Code(s): I89.0 - LYMPHEDEMA, NOT ELSEWHERE CLASSIFIED (14) Lymphedema Code(s): I89.0 - LYMPHEDEMA, NOT ELSEWHERE CLASSIFIED (15) Morbid obesity Code(s): E66.01 - MORBID (SEVERE) OBESITY DUE TO EXCESS CALORIES (16) Venous insufficiency of both lower extremities Code(s): I87.2 - VENOUS INSUFFICIENCY (CHRONIC) (PERIPHERAL) (17) Venous stasis dermatitis of both lower extremities Code(s): I87.2 - VENOUS INSUFFICIENCY (CHRONIC) (PERIPHERAL) (18) Venous stasis ulcers of both lower extremities Code(s): I83.019 - VARICOSE VEINS OF RIGHT LOWER EXTREMITY W ULCER OF UNSP SITE ; I83.029 - VARICOSE VEINS OF LEFT LOWER EXTREMITY W ULCER OF UNSP SITE (19) Venous ulcer of left lower extremity without varicose veins Code(s): I87.2 - VENOUS INSUFFICIENCY (CHRONIC) (PERIPHERAL); L97.929 - NON-PRS CHRONIC ULC UNSP PRT OF L LOW LEG W UNSP SEVERITY (20) Venous ulcer of right leg Code(s): I83.019 - VARICOSE VEINS OF RIGHT LOWER EXTREMITY W ULCER OF UNSP SITE ; L97.919 - NON-PRS CHRONIC ULC UNSP PRT OF R LOW LEG W UNSP SEVERITY (21) Abnormal stress test Code(s): R94.39 - ABNORMAL RESULT OF OTHER CARDIOVASCULAR FUNCTION STUDY (22) Bilateral lower leg cellulitis Code(s): L03.116 - CELLULITIS OF LEFT LOWER LIMB; L03.115 - CELLULITIS OF RIGHT LOWER LIMB (23) Cellulitis and abscess of leg Code(s): L02.419 - CUTANEOUS ABSCESS OF LIMB, UNSPECIFIED; L03.119 - CELLULITIS OF UNSPECIFIED PART OF LIMB (24) Constipation Code(s): K59.00 - CONSTIPATION, UNSPECIFIED (25) Dehydration Code(s): E86.0 - DEHYDRATION (26) Fever Code(s): R50.9 - FEVER, UNSPECIFIED (27) Fungal infection of nail Code(s): B35.1 - TINEA UNGUIUM (28) Hyperkalemia Code(s): E87.5 - HYPERKALEMIA (29) Idiopathic chronic venous hypertension of right lower extremity with ulcer and inflammation Code(s): I87.331 - CHRONIC VENOUS HTN W ULCER AND INFLAMMATION OF R LOW EXTREM; L97.919 - NON-PRS CHRONIC ULC UNSP PRT OF R LOW LEG W UNSP SEVERITY (30) Pain in toe of left foot Code(s): M79.675 - PAIN IN LEFT TOE(S) (31) Pain in toe of right foot Code(s): M79.674 - PAIN IN RIGHT TOE(S) (32) Swelling of lower extremity Code(s): M79.89 - OTHER SPECIFIED SOFT TISSUE DISORDERS (33) Troponin level elevated Code(s): R74.8 - ABNORMAL LEVELS OF OTHER SERUM ENZYMES (34) Venous insufficiency Code(s): I87.2 - VENOUS INSUFFICIENCY (CHRONIC) (PERIPHERAL) (35) Wound infection Code(s): T14.8XXA - OTHER INJURY OF UNSPECIFIED BODY REGION, INITIAL ENCOUNTER; L08.9 - LOCAL INFECTION OF THE SKIN AND SUBCUTANEOUS TISSUE, UNSP (36) Bronchitis, acute Code(s): J20.9 - ACUTE BRONCHITIS, UNSPECIFIED Assessment/Plan Assessment/Plan 02/20/2019 Scrotal US: Moderate bilateral hydroceles with diffuse scrotal soft tissue edema 02/18/2019 Echo: Normal LV size with moderate-severe decreased LVEF 30-35%, possible RV noncompaction, mild-mod decreased RV fxn, mild LEYDA, mod MR, mild- mod TR RVSP 46 mmHg, mod AR, mild W[place] Ao 4.7 cm 03/05/2018 Renal US: No hydro or calculi, bilateral increased renal cortical echogenicity c/w chronic renal parenchymal disease 1. Acute on chronic sysolic/diastolic heart failure (possible non-compaction) with scrotal edema resolving 2. Paroxysmal AF [id number] score of 2 3. Hypertension 4. Acute on CKD with hyperkalemia 5. Anemia 6. Chronic lymphedema 7. Mod ao dilatation 4.7 cm 8. Moderate bilateral hydroceles 9.Non sustained VT PLAN: 1. Decrease IV diuresis with monitoring renal function and electrolytes/Mg 2. Continue Eliquis 5 mg BID given elevated risk score 3. Carvedilol 6.25 mg BID and uptitrate. ACEI or ARB once renal function and K stabilizes, receiving Lokelma 10 qd, BiDil as alternative 4. Echocardiogram was reviewed (moderate to severe LVEF 30-35%, RV systolic dysfunction and possible non-compaction, moderate MR, moderate AR, mild to moderate TR and mild WV) 5. Compression therapy and wound care 6. Cardiac MRI as outpatient to further elucidate cardiomyopathy and aortic dilatation 7. Urology input regarding hydrocele repair coverage for dr. Smart
[2019-02-24] MEDS: FOLIC ACID 1 MG TABLET (FP) PO SCH (09:31)
[2019-02-24] MEDS: APIXABAN 5 MG TABLET PO SCH (09:31)
[2019-02-24] MEDS: ALLOPURINOL 300 MG TABLET (FP) PO SCH (09:31)
[2019-02-24] MEDS: ISOSORBIDE MONONITRATE 30 MG TAB.SR.24H (FP) PO SCH (09:31)
[2019-02-24] MEDS: hydrALAZINE HCL 10 MG TABLET PO SCH (09:32)
[2019-02-24] MEDS: FUROSEMIDE 40 MG/4 ML INJECTABLE VIAL IVPUSH SCH (09:32)
[2019-02-24] MEDS: CARVEDILOL 6.25 MG TABLET (FP) PO SCH (09:32)
--- NOTE | 2019-02-24 11:14 | PN ---
Teaching Attending Note Name of Resident: Azucena Ibarra ATTENDING PHYSICIAN STATEMENT I saw and evaluated the patient. I reviewed the resident's note and discussed the case with the resident. I agree with the resident's findings and plan as documented. SUBJECTIVE: Patient denies SOB. OBJECTIVE: Vital Signs Period Temp Pulse Resp BP Sys/Mcfarland Pulse Ox Last 24 Hr 97.4 F-98.5 F 78-98 18-20 96-119/51-78 96-96 HEART: Irregular LUNGS: Clear ABDOMEN: Obese, soft, non-tender, non-distended, normal BS EXTREMITIES: 2+ edema with chronic changes GENITOURINARY: (+) scrotal edema Laboratory Results - last 24 hr 02/23/19 02/24/19 02/24/19 11:35 05:50 05:50 WBC 4.8 RBC 3.03 L Hgb 8.1 L Hct 25.6 L MCV 84.7 MCH 26.8 MCHC 31.6 L RDW 19.4 H Plt Count 155 MPV 9.6 Absolute Neuts (auto) 3.3 Neutrophils % 69.0 Lymphocytes % 15.4 Monocytes % 11.9 H Eosinophils % 3.0 Basophils % 0.7 Nucleated RBC % 0 Sodium 138 139 Potassium 5.0 5.1 Chloride 102 103 Carbon Dioxide 31 32 Anion Gap 5 L 4 L BUN 51.5 H 56.8 H Creatinine 2.8 H 2.8 H Est GFR (CKD-EPI)AfAm 27.18 27.18 Est GFR (CKD-EPI)NonAf 23.46 23.46 Random Glucose 79 87 Calcium 7.6 L 7.0 L Phosphorus 5.0 H Magnesium 1.9 1.9 Current Medications Generic Name Dose Route Start Last Admin Trade Name Freq PRN Reason Stop Dose Admin Acetaminophen 650 mg 02/21/19 07:10 Tylenol - PO Q6H PRN PAIN LEVEL 6-10 Allopurinol 300 mg 02/16/19 10:00 02/24/19 09:31 Zyloprim - PO 300 mg DAILY MICHELLE Administration Apixaban 5 mg 02/21/19 14:56 02/24/19 09:31 Eliquis - PO 5 mg BID MICHELLE Administration Carvedilol 6.25 mg 02/19/19 22:00 02/24/19 09:32 Coreg - PO 6.25 mg BID MICHELLE Administration Folic Acid 1 mg 02/16/19 10:00 02/24/19 09:31 Folic Acid - PO 1 mg DAILY MICHELLE Administration Furosemide 40 mg 02/21/19 12:00 02/24/19 09:32 Lasix Injection - IVPUSH 40 mg DAILY MICHELLE Administration Hydralazine HCl 10 mg 02/20/19 11:30 02/24/19 09:32 Apresoline - PO 10 mg BID MICHELLE Administration Isosorbide Mononitrate 30 mg 02/20/19 11:30 02/24/19 09:31 Imdur - PO 30 mg DAILY MICHELLE Administration Nystatin 1 applic 02/15/19 22:00 02/23/19 22:23 Nystop Powder - TP Not Given BID MICHELLE Sodium Zirconium Cyclosilicate 10 gm 02/25/19 14:46 Lokelma PO MOWEFR MICHELLE ASSESSMENT AND PLAN: This is a 58 year old man with a history of HTN, atrial fib, chronic diastolic heart failure, chronic venous stasis of both legs with lymphedema and ulcers, stage 3 CKD, anemia, gout who presented to the ED with worsening leg swelling. 1. Acute on chronic systolic and diastolic heart failure - Improving - Weight decreased 1.8 kg in 7 days - Continue Lasix 40 mg IV daily - Maintain fluid restriction - Continue to monitor I&O, weight 2. Atrial fibrillation, permanent, with RVR - Rate controlled - Continue Coreg, Eliquis 3. Tinea cruris - Continue topical Nystatin powder 4. Stage 3 CKD -Creatinine stable 5. Hyperkalemia - Improved - Continue Lokelma 5. Chronic venous stasis with lymphedema and venous ulcers of both legs - Continue wound care 6. HTN - Continue Coreg, hydralazine, Lasix 7. Anemia secondary to CKD, chronic illness - Hgb 8.1 today - continue to monitor 8. History of gout - Continue allopurinol 9. Bilateral hydroceles - Moderate on US - Urology evaluation
[2019-02-24] MEDS: NYSTATIN POWDER 100,000 UNITS/GM - 15 GM TOPICAL POWDER TP SCH (11:41)
--- NOTE | 2019-02-24 11:53 | PN ---
Physical Exam: SUBJECTIVE: Patient seen and examined, no events overnight, no acute complaints OBJECTIVE: Vital Signs Period Temp Pulse Resp BP Sys/Mcfarland Pulse Ox Last 24 Hr 97.4 F-98.5 F 78-98 18-20 96-119/51-78 96-96 GENERAL: The patient is awake, alert, and fully oriented, in no acute distress. Obese HEAD: Normal with no signs of trauma. EYES: PERRL, extraocular movements intact, ENT: moist mucous membranes. LUNGS: Breath sounds equal, clear to auscultation bilaterally, no wheezes, no crackles, no accessory muscle use. HEART: Regular rate and rhythm, S1, S2 without murmur, rub or gallop. ABDOMEN: Soft, nontender, nondistended, normoactive bowel sounds, : scrotal swelling, swlling consistent from previous days EXTREMITIES: lower extremities completely wrapped, ulcers at the top of his legs clean and dry SKIN: Warm, dry, normal turgor, no rashes or lesions noted CBC, BMP 02/24/19 05:50 02/24/19 05:50 Active Medications Acetaminophen (Tylenol -) 650 mg PO Q6H PRN PRN Reason: PAIN LEVEL 6-10 Allopurinol (Zyloprim -) 300 mg PO DAILY [facility] Last Admin: 02/24/19 09:31 Dose: 300 mg Apixaban (Eliquis -) 5 mg PO BID [facility] Last Admin: 02/24/19 09:31 Dose: 5 mg Carvedilol (Coreg -) 6.25 mg PO BID [facility] Last Admin: 02/24/19 09:32 Dose: 6.25 mg Folic Acid (Folic Acid -) 1 mg PO DAILY [facility] Last Admin: 02/24/19 09:31 Dose: 1 mg Furosemide (Lasix Injection -) 40 mg IVPUSH DAILY [facility] Last Admin: 02/24/19 09:32 Dose: 40 mg Hydralazine HCl (Apresoline -) 10 mg PO BID [facility] Last Admin: 02/24/19 09:32 Dose: 10 mg Isosorbide Mononitrate (Imdur -) 30 mg PO DAILY [facility] Last Admin: 02/24/19 09:31 Dose: 30 mg Nystatin (Nystop Powder -) 1 applic TP BID [facility] Last Admin: 02/24/19 11:41 Dose: 1 applic Sodium Zirconium Cyclosilicate (Lokelma) 10 gm PO MOWEFR [facility] ASSESSMENT/PLAN: 58 y/o male with a history of CHF, afib, and lymphedema who is admitted for scrotal edema. #scrotal edema - 2/2 to CHF exacerbation , swelling stablized - ECHO : EF 30-35% - continue lasix 40 IV daily, hydralazine 10 mg po BID, carvedilol 6.25 mg bid po - weight 600, I's and O's - followed by Cardio - fluid restriction to 1.5 L daily - Urology consult, discuss potential sling or any further procedures for scrotal edema - US: bilateral hydrocele, scrotal soft tissue edema #afib - continue diltaizem - cardio began eliquis 5 for increased risk of thromboembolism [id number] #lymphedema with chronic ulcers - patient follows regularly with wound care - continue wound care management as per Dr. Eric - ulcers without signs of infection #CKD stage 3 - continue to monitor with nephro - lokelma 10 gm Monday and monday #iron deficiency anemia - hgb stable, continue ferric acid DVT ppx - patient on eliquis FEN - low sodium diet - fluid restriction Dispo: f/u Uro recs and if nothing further to do patient can be discharged home Visit type - Emergency Visit Emergency Visit: No - New Patient This patient is new to me today: No - Critical Care Critical Care patient: No ATTENDING PHYSICIAN STATEMENT I saw and evaluated the patient. I reviewed the resident's note and discussed the case with the resident. I agree with the resident's findings and plan as documented. SUBJECTIVE: OBJECTIVE: ASSESSMENT AND PLAN:
--- NOTE | 2019-02-24 15:36 | CONS ---
DATE OF CONSULTATION: DATE OF DICTATION: 02/24/2019 Patient is a 58-year-old diabetic with what appears to be rather significant CHF and insulin-dependent diabetes as well as peripheral vascular disease who noted increasing scrotal enlargement over the few days prior to his admission. While here his scrotum has continued to increase in size. An ultrasound was performed and this revealed evidence of marked scrotal edema as well as mild to moderately enlarged hydroceles. Problem number 2 is the patient reports that over the past 2 days he has had increasing difficulty generating a stream when he voids. Interestingly, a bladder ultrasound revealed a volume of 175 mL and no significant postvoid residual only 2 days ago. PHYSICAL EXAMINATION: General: Patient with obvious peripheral edema, large abdomen, possibly some ascites. Genitourinary: Scrotum was markedly enlarged. It should be noted that most of the scrotal enlargement appears to be in the skin consistent with the findings on the ultrasound. How large of a hydrocele is present is impossible to say based on his physical exam because of the marked scrotal edema. Rectal: Digital rectal exam was performed and this revealed evidence of a mild to moderately enlarged prostate. Regarding the patient's scrotal enlargement, he should as best as he can try to keep the scrotum elevated either with a bowel placed across his thighs with the scrotum resting on it while he is lying down and some kind of a scrotal support while he is ambulating. The scrotal edema and enlargement that we are seeing are mostly related to the rest of the edema he has as well as his low albumin which interestingly was only 2.3. The hydroceles are not playing a significant issue in his current scrotal enlargement and he is not presently a candidate for hydrocelectomy. With regard to the recent complaints of difficulty voiding, if there is no medical contraindication, I would suggest placing him on a dose of tamsulosin 0.4 mg nightly and seeing how he does. Some of the difficulty he is experiencing may relate to the abdominal swelling, which I suspect might be causing some pressure on the bladder and giving him a sense of having to void even when he does not have a large volume of urine in the bladder. Nonetheless, placing him on the tamsulosin should at least help him improve his stream and possibly relieve some of that urge to void at low volumes. At the present time there does not appear to be any indication for any further intervention. MD HORACIO MUHAMMAD/[id number]
[2019-02-24 15:52] VITALS: BP 101/58; PULSE 94; TEMP 97.9
[2019-02-24] MEDS ORDERED: TAMSULOSIN HCL 0.4 MG CAP PO ONE (15:55)
--- NOTE | 2019-02-24 16:03 | DS ---
Physical Exam: SUBJECTIVE: Patient seen and examined OBJECTIVE: Vital Signs Period Temp Pulse Resp BP Sys/[place] Pulse Ox Last 24 Hr 97.4 F-98.5 F 78-98 18-20 96-119/51-78 96-96 PHYSICAL EXAM GENERAL: The patient is awake, alert, and fully oriented, in no acute distress. HEAD: Normal with no signs of trauma. EYES: PERRL, extraocular movements intact, sclera anicteric, conjunctiva clear. ENT: Ears normal, nares patent, oropharynx clear without exudates, moist mucous membranes. NECK: Trachea midline, full range of motion, supple. LUNGS: Breath sounds equal, clear to auscultation bilaterally, no wheezes, no crackles, no accessory muscle use. HEART: Regular rate and rhythm, S1, S2 without murmur, rub or gallop. ABDOMEN: Soft, nontender, nondistended, normoactive bowel sounds, no guarding, no rebound, no hepatosplenomegaly, no masses. EXTREMITIES: 2+ pulses, warm, well-perfused, no edema. NEUROLOGICAL: Cranial nerves II through XII grossly intact. Normal speech, gait not observed. PSYCH: Normal mood, normal affect. SKIN: Warm, dry, normal turgor, no rashes or lesions noted. LABS Laboratory Results - last 24 hr 02/24/19 02/24/19 05:50 05:50 WBC 4.8 RBC 3.03 L Hgb 8.1 L Hct 25.6 L MCV 84.7 MCH 26.8 MCHC 31.6 L RDW 19.4 H Plt Count 155 MPV 9.6 Absolute Neuts (auto) 3.3 Neutrophils % 69.0 Lymphocytes % 15.4 Monocytes % 11.9 H Eosinophils % 3.0 Basophils % 0.7 Nucleated RBC % 0 Sodium 139 Potassium 5.1 Chloride 103 Carbon Dioxide 32 Anion Gap 4 L BUN 56.8 H Creatinine 2.8 H Est GFR (CKD-EPI)AfAm 27.18 Est GFR (CKD-EPI)NonAf 23.46 Random Glucose 87 Calcium 7.0 L Phosphorus 5.0 H Magnesium 1.9 HOSPITAL COURSE: Date of Admission:02/15/19 Date of Discharge: 02/24/19 Discharge Summary Problems reviewed: Yes Reason For Visit: CHF Current Active Problems Congestive heart failure (Chronic) Lymphedema of both lower extremities (Chronic) NYHA class 2 acute on chronic systolic heart failure (Chronic) Paroxysmal atrial fibrillation with rapid ventricular response (Chronic) Scrotal edema (Chronic) Condition: Stable - Instructions Diet, Activity, Other Instructions: You were admitted to the hospital for swelling of your scrotum. This was due to your CHF exacerbation. While you were here we treated you with medications. To continue treatment of your CHF please take: Lasix 40 mg by mouth daily Hydralazine 10 mg by mouth twice a day Carvedilol 6.25 mg by mouth twice a day Imdur 30 mg by mouth once a day Lokelma 10 grams by mouth Monday, Monday, and Monday, 2 hours before or after all your other medications. Do not take your Diltiazem any longer. Do not take your Kayexelate any longer. To help you urinate easier you will now take: Tamsulosin 0.4 mg by mouth every day at night time To help decrease your scrotal swelling you can lay a towel across your legs and rest your scrotum to help drain the fluid back. Please resume your other home medications as prescribed. Follow up with your primary care physician within one week. Make an appointment to follow up with the Urologist, Dr. Barajas, for your testicular swelling. Make an appointment to follow with the product support analyst, Dr. Smart, to monitor your heart function in one week. Make an appointment to follow with the mothers helper, Dr. Naqvi, to monitor your kidney function in one week. Continue to attend your wound care visits to treat your lymphedema with Dr. Eric. Return to the Emergency Department if you have any nausea, vomiting, headache, chest pain, or shortness of breath. Referrals: [facility] [place] [facility] [Provider Group] - 1 Week French Valle MD [Staff Physician] - 1 Week Pepito Eric DO [Staff Physician] - 02/27/19 Jojo Naqvi MD [Staff Physician] - 1 Week Silvestre Smart MD [Staff Physician] - 1 Week Disposition: HOME - Home Medications Comprehensive Discharge Medication List: Ambulatory Orders Furosemide [Lasix] 40 mg PO DAILY 06/24/16 Allopurinol 300 mg PO DAILY 06/07/18 Folic Acid 1 mg PO DAILY 06/07/18 Aspirin [ASA -] 81 mg PO DAILY #30 tab.chew 06/23/18 Ferric Citrate [Auryxia] 210 mg PO BID 02/15/19 Carvedilol [Coreg -] 6.25 mg PO BID #60 tablet 02/22/19 Isosorbide Mononitrate [Imdur -] 30 mg PO DAILY #30 tab.sr.24h 02/22/19 hydrALAZINE HCL [Apresoline -] 10 mg PO BID #60 tablet 02/22/19 Sodium Zirconium Cyclosilicate [Lokelma] 10 gm PO MOWEFR #25 powd.pack 02/24/19 Tamsulosin HCl 0.4 mg PO HS #30 capsule 02/24/19 - Discharge Referral Referred to [facility] No ATTENDING PHYSICIAN STATEMENT I saw and evaluated the patient. I reviewed the resident's note and discussed the case with the resident. I agree with the resident's findings and plan as documented. SUBJECTIVE: OBJECTIVE: ASSESSMENT AND PLAN:
[2019-02-25] MEDS ORDERED: SODIUM ZIRCONIUM CYCLOSILICATE (LOKELMA) 5 GM PACKET PO SCH (14:46)
[2019-02-26 15:32] VITALS: BMI 38.2
== END 2019-02-24 18:26 | disposition home or self-care (01) | DRG 291 ==
LOC: JER 09:30 → JERBED 15:30 → J4W 18:42
PROVIDERS: ADMIT Internal Medicine; ATTEND Internal Medicine
DX: I13.0 Hypertensive heart and chronic kidney disease with heart failure and stage 1 through stage 4 chronic kidney disease, or unspecified chronic kidney disease (principal); I50.43 Acute on chronic combined systolic (congestive) and diastolic (congestive) heart failure; N17.9 Acute kidney failure, unspecified; I47.2 Ventricular tachycardia; N18.3 Chronic kidney disease, stage 3 (moderate); D63.1 Anemia in chronic kidney disease; I27.20 Pulmonary hypertension, unspecified; I48.0 Paroxysmal atrial fibrillation; B35.6 Tinea cruris; R94.31 Abnormal electrocardiogram [ECG] [EKG]; D50.9 Iron deficiency anemia, unspecified; N50.89 Other specified disorders of the male genital organs; I87.2 Venous insufficiency (chronic) (peripheral); E87.5 Hyperkalemia; N43.3 Hydrocele, unspecified; I77.810 Thoracic aortic ectasia; E66.01 Morbid (severe) obesity due to excess calories; M10.9 Gout, unspecified; Z68.38 Body mass index [BMI] 38.0-38.9, adult
CPT/HCPCS: 36415; 71045-TC-FY; 76775-TC; 76856-TC; 76870-TC; 80048; 80053; 81003; 82565; 83735; 83880; 84100; 84156; 84300; 84540; 85025; 85027; 87086; 87186; 93005; 93010; 93306-TC; 99283-25

== ENCOUNTER 2020-01-24 17:34 | Inpatient (IN) | payer OTHER ==
--- OUTSIDE RECORDS SUMMARY | 2020-01-24 18:10 | XMS ---
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 specimen. Plasma Cancelled. Ronald/Antonino andujar RN. Re-draw Urea nitrogen Cancelled Blood Urea [facility] [Mass/volume] in possible Nitrogen, Health Serum or Plasma contaminated Serum System specimen. Cancelled. Ronald/Antonino andujar RN. Re-draw Creatinine Cancelled Creatinine, [facility] [Mass/volume] in possible Serum Health Serum or Plasma contaminated System specimen. Cancelled. S/Antonino andujar RN. Re-draw Glucose Cancelled Glucose, [facility] [Mass/volume] in possible Serum Health Serum or Plasma contaminated System specimen. Cancelled. Ronald/Antonino andujar RN. Re-draw Alkaline Cancelled Alkaline [facility] phosphatase possible Phosphatase, Health isoenzymes contaminated Serum System [Enzymatic specimen. activity/volume] Cancelled. in Serum or S/T jill Plasma by Charlene andujar RN. stability Re-draw Bilirubin.total Cancelled Bilirubin, [facility] [Mass/volume] in possible Serum Total Health Serum or Plasma contaminated System specimen. Cancelled. S/T jill andujar RN. Re-draw DirectBilirubin Cancelled Direct [facility] possible Bilirubin Health contaminated System specimen. Cancelled. S/T jill andujar RN. Re-draw Aspartate Cancelled Aspartate [facility] aminotransferase possible Transaminase Health [Enzymatic contaminated , Serum System activity/volume] specimen. in Serum or Cancelled. Plasma by With S/T jill [id number] melissa DUKES. Re-draw I.Phosphorus Cancelled I. [facility] possible Phosphorus Health contaminated System specimen. Cancelled. S/T jill andujar RN. Re-draw Albumin Cancelled Albumin, [facility] [Mass/volume] in possible Serum Health Serum or Plasma contaminated System specimen. Cancelled. S/T jill andujar RN. Re-draw Calcium Cancelled Calcium, [facility] [Mass/volume] in possible Total Serum Health Serum or Plasma contaminated System specimen. Cancelled. S/T jill andujar RN. Re-draw Urate Cancelled Uric Acid, [facility] [Mass/volume] in possible Serum Health Serum or Plasma contaminated System specimen. Cancelled. S/T jill andujar RN. Re-draw Alanine Cancelled Alanine [facility] aminotransferase possible Aminotransfe Health [Enzymatic contaminated rase, Serum System activity/volume] specimen. in Serum or Cancelled. Plasma S/T jill andujar RN. Re-draw Glomerular Cancelled GFR [facility] filtration possible Health rate/1.73 sq contaminated System M.predicted specimen. [Volume Cancelled. Rate/Area] in S/T jill Serum or Plasma melissa PATEL by Re-draw Creatinine-based formula (CKD-EPI) Anion gap in Cancelled Anion Gap [facility] Serum or Plasma possible Health contaminated System specimen. Cancelled. S/T jill andujar RN. Re-draw SpecimenRejectio CON Specimen [facility] nReason Rejection Health Reason System ID Date Data Source [id number] 07/15/2019 07:06:11 PM EDT [facility] Name Value Range Interpretation Description Data Source(s ) Supporting Code Document(s ) LacticAc 4.6 Above upper panic Lactic Acid [facility] idWholeB mmol/L limits Whole Blood Health System lood*NEW *NEW ADA ADA ONLY* ONLY* Result Reporting|Telephone|Dr. Dorie GERMAIN/ rb| 07/04/2019 at 2:15 AMCalled to:Dr. Dorie GERMAIN/rbTech Name:[place] by:Dr. Dorie Loving/idalia 07/04/2019 / 2:15 AM ID Date Data Source [id number] 07/15/2019 07:06:11 PM EDT [facility] Name Value Range Interpretation Description Data Sup porting Code Source(s) Document(s ) Leukocytes 9.4 Normal (applies WBC Count [facility] [#/volume] in {10^3_uL to non-numeric Health Syst em Unspecified } results) specimen by Automated count Hemoglobin 3.8 Below lower panic Hemoglobin [facility] [Mass/volume] {gm/dL} limits Health System in Blood Result Reporting|Telephone|bryce camargo RN/rb| 07/04/2019 at 3:17 AMCalled to:bryce Gonzalez RN/Pam Name:Rose marilee by:bryce Gonzalez RN/idalia 07/04/2019 / 3:17 AM Erythrocytes 1.40 {10^6_uL} Below low RBC Count [facility] [#/volume] in Blood normal System by Automated count Hematocrit [Volume 13.9 % Below lower Hematocrit [facility] Fraction] of Blood panic limits System Result Reporting|Telephone|bryce camargo RN/rb| 07/04/2019 at 3:17 AMCalled to:bryce Gonzalez RN/Pam Name:Rose marilee by:bryce Gonzalez RN/idalia 07/04/2019 / 3:17 AM Erythrocyte mean 99.3 fl Above high MCV [facility] corpuscular volume normal System [Entitic volume] by Automated count Erythrocyte mean 27.1 pg Normal MCH [facility] corpuscular (applies to System hemoglobin [Entitic non-numeric mass] by Automated results) count Erythrocyte mean 27.3 Below low MCHC [facility] corpuscular {gm/dL} normal System hemoglobin concentration [Mass/volume] by Automated count Erythrocyte 25.1 % Above high RDW-CV [facility] distribution width normal System [Entitic volume] by Automated count Platelets [#/volume] 307 Normal Platelet Count [facility] in Plasma by {10^3_uL} (applies to System Automated count non-numeric results) Nucleated 0.6 Above high NRBC % [facility] erythrocytes {/100_WBC} normal System [#/volume] in Body fluid Platelet mean volume 11.5 fl Normal MPV [facility] [Entitic volume] in (applies to System Blood by Automated non-numeric count results) Neutrophils/100 75.4 % Above high Neutrophil % [facility] leukocytes in Blood normal System by Automated count NRBC# 0.06 Above high NRBC # [facility] {10^3_uL} normal System Lymphocytes 14.8 % Below low Lymphocyte % [facility] [#/volume] in Blood normal System by Automated count Neutrophils 7.1 Normal Neutrophil # [facility] [#/volume] in Body {10^3_uL} (applies to System fluid non-numeric results) Lymphocyte percent 1.4 Normal Lymphocyte # [facility] differential count {10^3_uL} (applies to System (procedure) non-numeric results) Monocytes/100 8.7 % Normal Monocyte % [facility] leukocytes in Blood (applies to System non-numeric results) Eosinophils/100 0.4 % Normal Eosinophil % [facility] leukocytes in (applies to System Unspecified specimen non-numeric results) Monocytes [#/volume] 0.8 Normal Monocyte # [facility] in Blood by Manual {10^3_uL} (applies to System count non-numeric results) Eosinophils 0.04 Normal Eosinophil # [facility] [#/volume] in Blood {10^3_uL} (applies to System non-numeric results) Basophils [#/volume] 0.02 Normal Basophil # [facility] in Blood by Automated {10^3_uL} (applies to System count non-numeric results) ImmatureGranulocytes# 0.05 Normal Immature [facility] {10^3_uL} (applies to Granulocytes # System non-numeric results) Basophils/100 0.2 % Normal Basophil % [facility] leukocytes in (applies to System Unspecified specimen non-numeric by Manual count results) ImmatureGranulocytes% 0.5 % Normal Immature [facility] (applies to Granulocytes % System non-numeric results) ID Date Data Source [id number] 07/15/2019 07:06:11 PM EDT [facility] Name Value Range Interpretation Description Data Sup porting Code Source(s) Document(s ) TroponinIQuantitative 0.08 Above high Troponin I [facility] ng/ml normal Quantitative Health System Detection of a rise and/or fall of cardi ac troponin I above the cut-off of 0.03 ng/mL is consistent with myocardial infarction in the appropriate clinical setting. With the use of lower cut-offs, testing of se rial samples is required for diagnosis. ID Date Data Source [id number] 07/15/2019 07:06:11 PM EDT [facility] Name Value Range Interpretation Description Data Sup porting Code Source(s) Document(s ) Sodium 138 Normal (applies Sodium, Serum [facility] [Moles/volume mmol/L to non-numeric Health Syst em ] in Serum or results) Plasma Potassium 8.4 Above upper panic Potassium, [facility] [Mass/volume] mmol/L limits Serum Health System in Serum or Plasma Result Reporting|Telephone|Jill Andujar RN/IDALIA| 07/04/2019 at 3:54 AMCalled to:Jill Andujar RN/IDALIATech [facility] by:Ita Andujar RN/IDALIA 07/04/2019 / 3:53 AM Carbon dioxide, total 13.6 mmol/L Below low CO2, Serum Archie janett [Moles/volume] in Serum normal Health System or Plasma Chloride [Moles/volume] 111 mmol/L Normal Chloride, Serum [facility] in Serum or Plasma (applies to Health Sy stem non-numeric results) Glucose [Mass/volume] 93 mg/dL Normal Glucose, Serum [facility] in Serum or Plasma (applies to Health Sy stem non-numeric results) TotalProtein 7.6 mg/dl Normal Total Protein [facility] (applies to Health System non-numeric results) Creatinine 3.90 mg/dl Above high Creatinine, Serum [facility] [Mass/volume] in Serum normal Health System or Plasma Urea nitrogen 171 mg/dl Above high Blood Urea [facility] [Mass/volume] in Serum normal Nitrogen, Serum H ealth System or Plasma Bilirubin.total 0.6 mg/dl Normal Bilirubin, Serum [facility] [Mass/volume] in Serum (applies to Total Healt h System or Plasma non-numeric results) Alkaline phosphatase 135 {IU/L} Above high Alkaline [facility] isoenzymes [Enzymatic normal [facility]atase, [facility] activity/volume] in Serum Serum or Plasma by Heat stability DirectBilirubin 0.2 mg/dl Normal Direct Bilirubin [facility] (applies to Health System non-numeric results) Albumin [Mass/volume] 2.8 {gm/dl} Below low Albumin, Serum M [facility] in Serum or Plasma normal Health Syst em Aspartate 19 {IU/L} Normal Aspartate [facility] aminotransferase (applies to Transaminase, [facility] System [Enzymatic non-numeric Serum activity/volume] in results) Serum or Plasma by With P-5'-P I.Phosphorus 6.5 mg/dl Above high I. Phosphorus [facility] normal Health System Alanine 14 {IU/L} Normal Alanine [facility] aminotransferase (applies to Aminotransferase, [facility] System [Enzymatic non-numeric Serum activity/volume] in results) Serum or Plasma Calcium [Mass/volume] 8.0 mg/dl Below low Calcium, Total [facility] in Serum or Plasma normal Serum Health Syst em A/GRatio 0.58 Normal A/G Ratio [facility] (applies to Health System non-numeric results) Glomerular filtration 16.00 Normal GFR [facility] rate/1.73 sq (applies to Health System M.predicted [Volume non-numeric Rate/Area] in Serum or results) Plasma by Creatinine-based formula (CKD-EPI) eGFR will provide clinicians with a more accurate indicator of renal function then the serum creatinine. The eGFR is automa tically calculated from an empiric formula (endorsed by the National Kid[employer] ion) which incorporates age, sex, and race.Clinicians may notice surprisingly low GFR's with serum creatinine valueswithin normal range- particularly in elderly wo men (with low muscle mass).In the hospital setting, the eGFR should add an element of safety in drug dosing, in assessing the risk of IV contrast administration, and in assessing vascular risk.The NKF staging system is as follows:Normal: eGFR >90 with no kidney markersStage 1: eGFR >90 with kidney markers*Stage 2: eGFR 60- 89Stage 3: eGFR 30-59Stage 4: eGFR 15-29Stage 5: eGFR <15 (usually requir ing dialysis)*Markers include: Proteinuria, Hematuria, abnormal imaging-studies, or other blood or urine test abnormalities Urate [Mass/volume] 5.2 mg/dl Normal (applies to Uric Acid, [facility] in Serum or Plasma non-numeric Serum System results) Anion gap in Serum or 13.40 mmol/L Normal (applies to Anio n Gap [facility] Health Plasma non-numeric System results) ID Date Data Source [id number] 07/15/2019 07:06:11 PM EDT [facility] System Name Value Range Interpretation Description Data Sup porting Code Source(s) Document(s ) D Ab [Titer] in Positive Normal (applies Rh [facility] Serum or Plasma to non-numeric Health results) System Type B Normal (applies Type [facility] to non-numeric Health results) System AntibodyScreen Negative Normal (applies Antibody [facility] to non-numeric Screen Health results) System ID Date Data Source [id number] 07/15/2019 07:06:11 PM EDT [facility] alth System Name Value Range Interpretation Description Data Sup porting Code Source(s) Document(s ) INR in Blood by 3.03 Above high normal INR Result [facility] Coagulation {Ratio} Health System assay Normal = 0.7-1.1Therapeutic = 2.0-3.0Mec hanical Heart = 3.0-4.5 Prothrombintime(PT) 35.60 {seconds} Above high Prothrombin t stevo [facility] normal (PT) Health System ID Date Data Source [id number] 07/15/2019 07:06:11 PM EDT [facility] System Name Value Range Interpretation Code Description Data [place] rce(s) Supporting Document(s ) RH. Rh Positive Normal (applies to RH. [facility] non-numeric Health System results) Type. B Normal (applies to Type. [facility] non-numeric Health System results) ID Date Data Source [id number] 07/15/2019 07:06:11 PM EDT [facility] System Name Value Range Interpretation Description Data Sup porting Code Source(s) Document(s ) pH 7.286 Below low normal pH [facility] {pH_units} Health System Carbon dioxide 29.0 Below low normal pCO2, [facility] [Partial {mm_Hg} Arterial Health pressure] in System Arterial blood BaseExcess. -12.8 Below low normal Base Excess. [facility] re mmol/L Health System Oxygen 156.0 Above high pO2, [facility] [Partial {mm_Hg} normal Health pressure] in System Arterial blood Bicarbonate 13.8 mmol/L Below low normal HCO3 [facility] e [Moles/volume] Health in Venous System blood TCO2 Cancelled TCO2 [facility] System Sodium,WB 142 mmol/L Normal (applies Sodium, WB [facility] to non-numeric Health results) System [id number] > 100.0 Above high O2 Saturation [facility] normal [facility] System Chloride,WB 117 mmol/L Above high Chloride, WB [facility] normal Health System Potassium,WB 7.1 mmol/L Above upper Potassium, WB [facility] panic limits Health System Result Reporting|Telephone|bryce camargo RN/rb| 07/04/2019 at 5:10 AMCalled to:bryce Daniels Name:Rose hunt by:bryce Zaldivar 07/04/2019 / 5:10 AM IonizedCalcium 1.14 mmol/L Below low Ionized Calcium [facility] normal System Glucose,WB 74 mg/dL Normal Glucose, WB [facility] Health (applies to System non-numeric results) Lactate [Mass/volume] 3.9 mmol/L Above upper Lactate [facility] in Serum or Plasma panic limits System Result Reporting|Telephone|bryce camargo RN/idalia| 07/04/2019 at 5:10 AMCalled to:bryce Daniels Name:Rose hunt by:bryce Zaldivar 07/04/2019 / 5:10 AM ID Date Data Source [id number] 07/15/2019 07:06:11 PM EDT [facility] alth System Name Value Range Interpretation Description Data Sup porting Code Source(s) Document(s ) Source: Nasopharyngeal Normal (applies Source: [facility] to non-numeric Health results) System [id number] Not DetectedTest Normal (applies SARS CoV 2 [facility] NA,RTPCR Performed by to non-numeric RNA, RT PCR Health VIRACOR results) System Laboratory Symptom Yes Normal (applies Patient [facility] to non-numeric Symptomatic? Health results) System ID Date Data Source [id number] 07/15/2019 07:06:11 PM EDT [facility] Name Value Range Interpretation Description Data Sup porting Code Source(s) Document(s ) Influenza virus Negative Normal (applies Flu A Viral [facility] A RNA [Presence] to non-numeric RNA Health in Unspecified results) System specimen by Probe and target amplification method Influenza virus Negative Normal (applies Flu B Viral [facility] B RNA [Presence] to non-numeric RNA Health in Unspecified results) System specimen by Probe and target amplification method ID Date Data Source [id number] 07/15/2019 07:06:11 PM EDT [facility] System Name Value Range Interpretation Description Data Sup porting Code Source(s) Document(s ) Respiratory Negative Normal (applies Respiratory [facility] syncytial to non-numeric Syncytial Health virus Ag results) Virus Antigen System [Presence] in Unspecified specimen by Immunoassay Method: ChromatographicInfection due to RSV cannot be ruled-out, since the antigen present in the sample may be below the d etection limit of the test. Culture confirmation of negative samples is mandeep mmended. ID Date Data Source [id number] 07/15/2019 07:06:11 PM EDT [facility] System Name Value Range Interpretation Description Data Source(s ) Supporting Code Document(s ) UreaNitr 510.0 Normal (applies to Urea Nitrogen [facility] ogenSpot mg/dl non-numeric Spot-Urine Health System -Urine results) ID Date Data Source [id number] 07/15/2019 07:06:11 PM EDT [facility] System Name Value Range Interpretation Description Data Source(s ) Supporting Code Document(s ) Chloride 26.0 Normal (applies to Chloride Spot, [facility] Spot,Uri mmol/L non-numeric Urine Health System ne results) SodiumSp 66.0 Normal (applies to Sodium Spot, [facility] ot,Urine mmol/L non-numeric Urine Health System results) Potassiu 28.5 Normal (applies to Potassium, Spot Archie janett m,SpotUr mmol/L non-numeric Urine Health System ine results) Creatini 111.2 Normal (applies to Creatinine, [facility] ne,SpotU mg/dl non-numeric Spot Urine Health System rine results) ID Date Data Source [id number] 07/15/2019 07:06:11 PM EDT [facility] Name Value Range Interpretation Description Data Sup porting Code Source(s) Document(s ) Sodium 139 Normal (applies Sodium, Serum [facility] [Moles/volume mmol/L to non-numeric Health Syst em ] in Serum or results) Plasma Potassium 7.6 Above upper panic Potassium, [facility] [Mass/volume] mmol/L limits Serum Health System in Serum or Plasma Result Reporting|Telephone|Cynthia delgadillo rn/idalia| 07/04/2019 at 7:32 AMCalled to:Cynthia delgadillo rn/idaliaTech Name:Doris ck by:Cynthia delgadillo rn/idalia 07/04/2019 / 7:32 AM Chloride [Moles/volume] 112 mmol/L Above high Chloride, Seru m [facility] in Serum or Plasma normal Health Syst em Carbon dioxide, total 15.3 mmol/L Below low CO2, Serum Archie janett [Moles/volume] in Serum normal Health System or Plasma TotalProtein 7.2 mg/dl Normal Total Protein [facility] (applies to Health System non-numeric results) Glucose [Mass/volume] 94 mg/dL Normal Glucose, Serum [facility] in Serum or Plasma (applies to Health Sy stem non-numeric results) Creatinine 3.98 mg/dl Above high Creatinine, [facility] [Mass/volume] in Serum normal Serum Health System or Plasma Urea nitrogen 167 mg/dl Above high Blood Urea [facility] [Mass/volume] in Serum normal Nitrogen, Serum H ealth System or Plasma Alkaline phosphatase 125 {IU/L} Above high Alkaline [facility] isoenzymes [Enzymatic normal Phosphatase, [facility] activity/volume] in Serum Serum or Plasma by Heat stability Bilirubin.total 0.7 mg/dl Normal Bilirubin, Serum [facility] [Mass/volume] in Serum (applies to Total Healt h System or Plasma non-numeric results) DirectBilirubin 0.2 mg/dl Normal Direct Bilirubin [facility] (applies to Health System non-numeric results) Aspartate 19 {IU/L} Normal Aspartate [facility] aminotransferase (applies to Transaminase, Health System [Enzymatic non-numeric Serum activity/volume] in results) Serum or Plasma by With P-5'-P Albumin [Mass/volume] 2.6 {gm/dl} Below low Albumin, Serum M [facility] in Serum or Plasma normal Health Syst em Alanine 13 {IU/L} Normal Alanine [facility] aminotransferase (applies to Aminotransferase Heal th System [Enzymatic non-numeric , Serum activity/volume] in results) Serum or Plasma I.Phosphorus 6.4 mg/dl Above high I. Phosphorus [facility] normal Health System Calcium [Mass/volume] 8.2 mg/dl Below low Calcium, Total [facility] in Serum or Plasma normal Serum Health Syst em A/GRatio 0.57 Normal A/G Ratio [facility] (applies to Health System non-numeric results) Urate [Mass/volume] in 5.1 mg/dl Normal Uric Acid, Serum [facility] Serum or Plasma (applies to Health Syste m non-numeric results) Anion gap in Serum or 11.70 mmol/L Normal Anion Gap Ar[facility] janett Plasma (applies to Health System non-numeric results) Glomerular filtration 15.00 Normal GFR [facility] rate/1.73 sq (applies to Health System M.predicted [Volume non-numeric Rate/Area] in Serum or results) Plasma by Creatinine-based formula (CKD-EPI) eGFR will provide clinicians with a more accurate indicator of renal function then the serum creatinine. The eGFR is automa tically calculated from an empiric formula (endorsed by the National Kidney [employer] ion) which incorporates age, sex, and race.Clinicians may notice surprisingly low GFR's with serum creatinine valueswithin normal range- particularly in elderly wo men (with low muscle mass).In the hospital setting, the eGFR should add an element of safety in drug dosing, in assessing the risk of IV contrast administration, and in assessing vascular risk.The NKF staging system is as follows:Normal: eGFR >90 with no kidney markersStage 1: eGFR >90 with kidney markers*Stage 2: eGFR 60- 89Stage 3: eGFR 30-59Stage 4: eGFR 15-29Stage 5: eGFR <15 (usually requir ing dialysis)*Markers include: Proteinuria, Hematuria, abnormal imaging-studies, or other blood or urine test abnormalities ID Date Data Source [id number] 07/15/2019 07:06:11 PM EDT [facility] System Name Value Range Interpretation Description Data Sup porting Code Source(s) Document(s ) Ferritin 79.8 Normal (applies Ferritin, [facility] [Mass/volume ng/ml to non-numeric Serum - Health System tem ] in Serum results) [place] Only or Plasma ID Date Data Source [id number] 07/15/2019 07:06:11 PM EDT [facility] alth System Name Value Range Interpretation Description Data Source(s ) Supporting Code Document(s ) LacticAc 3.3 Above upper panic Lactic Acid [facility] system idWholeB mmol/L limits Whole Blood Health System lood*NEW *NEW ADA ADA ONLY* ONLY* Result Reporting|Telephone|Dr.Liu GERMAIN/rb| 07/04/2019 at 6:47 AMCalled to:Dr.Liu GERMAIN/Pam Name:[place] by:Dr.Liu GERMAIN/r b 07/04/2019 / 6:47 AMResult Reporting|Telephone|Dr.Liu GERMAIN/rb| 020 at 6:48 AMCalled to:Dr.Liu GERMAIN/Pam Name:[place] by:Dr.Liu GERMAIN/rb 0 / 6:48 AM ID Date Data Source [id number] 07/15/2019 07:06:11 PM EDT [facility] System Name Value Range Interpretation Description Data Sup porting Code Source(s) Document(s ) Iron binding 218.00 Below low normal Total Iron [facility] e capacity Binding Health System [Mass/volume Capacity-(RO). ] in Serum or Plasma UNITS: mcg/dL (calc) Iron [Mass/volume] in 22.00 {mcg/dL} Below low Iron.. [facility] Health Serum or Plasma normal System %Saturation. 10.00 {%_(calc)} Below low % Saturation. [facility] normal System Test Performed at:[facility] [place], [place] [address]IfqcboodCharles Michael M.D. ID Date Data Source [id number] 07/15/2019 07:06:11 PM EDT [facility] alth System Name Value Range Interpretation Description Data Sup porting Code Source(s) Document(s ) Leukocytes 10.0 Normal (applies WBC Count [facility] [#/volume] in {10^3_uL to non-numeric Health Syst em Unspecified } results) specimen by Automated count MANUAL DIFF DONE 07/03 Erythrocytes 1.70 {10^6_uL} Below low RBC Count [facility] [#/volume] in Blood normal System by Automated count Hemoglobin 4.8 {gm/dL} Below lower Hemoglobin [facility] [Mass/volume] in panic limits System Blood Result Reporting|Telephone|| at 11:31 AMCalled to:DR.VISHNU King Name:LMCReadback by: 07/04/2019 / 11:30 AM Hematocrit [Volume 16.5 % Below lower panic Hematocrit [facility] Fraction] of Blood limits System Result Reporting|Telephone|| at 11:31 AMCalled to:DR.VISHNU King Name:LMCReadback by: 07/04/2019 / 11:30 AM Erythrocyte mean 97.1 fl Normal (applies MCV [facility] corpuscular volume to non-numeric Health System [Entitic volume] by results) Automated count Erythrocyte mean 28.2 pg Normal (applies MCH [facility] corpuscular to non-numeric Health System hemoglobin [Entitic results) mass] by Automated count Erythrocyte mean 29.1 Below low normal MCHC [facility] corpuscular {gm/dL} Health System hemoglobin concentration [Mass/volume] by Automated count Erythrocyte 22.3 % Above high normal RDW-CV [facility] distribution width Health Syst em [Entitic volume] by Automated count Platelets [#/volume] 265 Normal (applies Platelet Coun t [facility] in Plasma by {10^3_uL} to non-numeric Health Syste m Automated count results) Platelet mean volume 10.7 fl Normal (applies MPV [facility] [Entitic volume] in to non-numeric Healt h System Blood by Automated results) count Nucleated 0.3 Above high normal NRBC % [facility] erythrocytes {/100_WBC} Health System [#/volume] in Body fluid NRBC# 0.03 Above high normal NRBC # [facility] {10^3_uL} Health System Neutrophils/100 77.4 % Above high normal Neutrophil % [facility] leukocytes in Blood Health Sys tem by Automated count Neutrophils 7.7 Normal (applies Neutrophil # [facility] [#/volume] in Body {10^3_uL} to non-numeric Health System fluid results) Lymphocytes 11.6 % Below low normal Lymphocyte % [facility] [#/volume] in Blood Health Sys tem by Automated count Lymphocyte percent 1.2 Normal (applies Lymphocyte # [facility] differential count {10^3_uL} to non-numeric Health System (procedure) results) Monocytes/100 9.5 % Above high normal Monocyte % [facility] leukocytes in Blood Health Sys tem Monocytes [#/volume] 1.0 Normal (applies Monocyte # [facility] in Blood by Manual {10^3_uL} to non-numeric Health System count results) Eosinophils/100 0.7 % Normal (applies Eosinophil % [facility] leukocytes in to non-numeric Health Syst em Unspecified specimen results) Eosinophils 0.07 Normal (applies Eosinophil # [facility] [#/volume] in Blood {10^3_uL} to non-numeric Healt h System results) Basophils/100 0.3 % Normal (applies Basophil % [facility] leukocytes in to non-numeric Health Syst em Unspecified specimen results) by Manual count Basophils [#/volume] 0.03 Normal (applies Basophil # [facility] in Blood by {10^3_uL} to non-numeric Health System Automated count results) ImmatureGranulocytes 0.05 Normal (applies Immature [facility] # {10^3_uL} to non-numeric Granulocytes # Health Sys tem results) ImmatureGranulocytes 0.5 % Normal (applies Immature [facility] % to non-numeric Granulocytes % Health Sys tem results) ID Date Data Source [id number] 07/15/2019 07:06:11 PM EDT [facility] Name Value Range Interpretation Description Data Sup porting Code Source(s) Document(s ) Sodium 140 Normal (applies Sodium, Serum [facility] [Moles/volume mmol/L to non-numeric Health Syst em ] in Serum or results) Plasma Potassium 6.2 Above upper panic Potassium, [facility] [Mass/volume] mmol/L limits Serum Health System in Serum or Plasma Result Reporting|Telephone|DENITA GERMAIN/IDALIA| 07/04/2019 at 12:40 PMCalled to:DENITA DOMINGOTech Name:SMReadback by:DENITA GERMAIN/Shaniqua Cintron 07/04/2019 / 12:39 PM Chloride 117 mmol/L Above high Chloride, Serum [facility] [Moles/volume] in normal System Serum or Plasma Carbon dioxide, total 14.8 mmol/L Below low CO2, Serum [facility] [Moles/volume] in normal System Serum or Plasma Glucose [Mass/volume] 99 mg/dL Normal Glucose, Serum [facility] in Serum or Plasma (applies to System non-numeric results) Urea nitrogen 149 mg/dl Above high Blood Urea [facility] [Mass/volume] in Serum normal Nitrogen, Serum S ystem or Plasma Creatinine 3.57 mg/dl Above high Creatinine, [facility] [Mass/volume] in Serum normal Serum System or Plasma Calcium [Mass/volume] 6.8 mg/dl Below low Calcium, Total [facility] in Serum or Plasma normal Serum System Anion gap in Serum or 8.20 mmol/L Normal Anion Gap [facility] Plasma (applies to System non-numeric results) ID Date Data Source [id number] 07/15/2019 07:06:11 PM EDT [facility] System Name Value Range Interpretation Description Data Sup porting Code Source(s) Document(s ) Hepati Non Normal (applies Hepatitis B [facility] tisBCo ReactiveReference to non-numeric [facility] reAnti Range: Non results) Antibody, System body,T ReactiveTest Total otal Performed at:[facility], [place], [place] Arianne Michael M.D. NONREACTIVE = Anti-HBc antibodies were not detected in the sample; it is possible that the patient is not infected with HBV.EQUIVOCAL = Antibodies to anti-HBc may or may not be present; another specimen should be obtained from the patient for further testing.REACTIVE = Presumptive evidence of HBV; anti-HBc antibodies were detected in the sample which suggests either on-going or previous HBV infection. ID Date Data Source [id number] 07/15/2019 07:06:11 PM EDT [facility] System Name Value Range Interpretation Description Data Sup porting Code Source(s) Document(s ) HepatitisBSurf DNRTest Normal (applies Hepatitis B [facility] aceAntigenNeut Performed to non-numeric [facility] at:[facility] results) Antigen Neut [place], [place], [place] Jasbir LewisD. HepatitisBSurf Non Normal (applies Hepatitis B [facility] aceAntigen. ReactiveReferen to non-numeric [facility] ce Range: Non results) Antigen. System ReactiveTest Performed at:[facility], [place], [place] [address]XezedickCharles Michael M.D. ID Date Data Source [id number] 07/15/2019 07:06:11 PM EDT [facility] Name Value Range Interpretation Description Data Source(s ) Supporting Code Document(s ) Hepatiti 9 Below low normal Hepatitis B [facility] sBSurfac {mIU/mL} [facility] eAntibod Antibody. y. Patient does not have immunity to hepati tis B virus.For additional information, please refer [email or web address]/PAS969(This link is being provided for informational/educational p urposes only).Test Performed at:[facility], [place], [place] [address]FisjoitaCharles Michael M.D. ID Date Data Source [id number] 07/15/2019 07:06:11 PM EDT [facility] Name Value Range Interpretation Description Data Sup porting Code Source(s) Document(s ) Hemoglobin 6.3 Below lower panic Hemoglobin [facility] [Mass/volume] {gm/dL} limits Health System in Blood Patient rec''d blood.Result Reporting|Te lephone|Dr. Lennon| 07/05/2019 at 1:08 AMCalled to: Name:Marilyn londono by: 07/05/2019 / 1:07 AM Hematocrit [Volume 20.8 % Below lower panic Hematocrit [facility] Fraction] of Blood limits System Result Reporting|Telephone|Dr. Lennon| 07/05/2019 at 1:08 AMCalled to: Name:Pushpa cintron y: 07/05/2019 / 1:07 AM Erythrocyte mean 93.7 fl Normal (applies to MCV [facility] corpuscular volume non-numeric results) System [Entitic volume] by Automated count ID Date Data Source [id number] 07/15/2019 07:06:11 PM EDT [facility] Name Value Range Interpretation Description Data Sup porting Code Source(s) Document(s ) Sodium 138 Normal (applies Sodium, Serum [facility] [Moles/volume mmol/L to non-numeric Health Syst em ] in Serum or results) Plasma Chloride 108 Normal (applies Chloride, [facility] [Moles/volume mmol/L to non-numeric Serum Health Syst em ] in Serum or results) Plasma Potassium 4.9 Normal (applies Potassium, [facility] [Mass/volume] mmol/L to non-numeric Serum Health Syst em in Serum or results) Plasma Carbon 20.8 Below low normal CO2, Serum [facility] dioxide, mmol/L Health System total [Moles/volume ] in Serum or Plasma Glucose 94 mg/dL Normal (applies Glucose, Serum [facility] [Mass/volume] to non-numeric Health Syst em in Serum or results) Plasma Urea nitrogen 103 Above high normal Blood Urea [facility] [Mass/volume] mg/dl Nitrogen, Health System in Serum or Serum Plasma Creatinine 2.87 Above high normal Creatinine, [facility] [Mass/volume] mg/dl Serum Health System in Serum or Plasma Calcium 7.9 Below low normal Calcium, Total [facility] [Mass/volume] mg/dl Serum Health System in Serum or Plasma Anion gap in 9.20 Normal (applies Anion Gap [facility] Serum or mmol/L to non-numeric Health System Plasma results) ID Date Data Source [id number] 07/15/2019 07:06:11 PM EDT [facility] Name Value Range Interpretation Description Data Sup porting Code Source(s) Document(s ) Leukocytes 9.2 Normal (applies WBC Count [facility] [#/volume] in {10^3_uL to non-numeric Health Syst em Unspecified } results) specimen by Automated count Erythrocytes 2.30 Below low normal RBC Count [facility] [#/volume] in {10^6_uL Health System Blood by } Automated count Hemoglobin 7.0 Below lower panic Hemoglobin [facility] [Mass/volume] {gm/dL} limits Health System in Blood Patient rec''d blood.Result Reporting|Rishi nelson|| 07/05/2019 at 7:41 AMCalled to: Name:Hellen lReadback by:/idalia 07/05/2019 / 7:40 AM Hematocrit [Volume 21.6 % Below lower panic Hematocrit [facility] Fraction] of Blood limits System Result Reporting|Telephone| | 07/05/2019 at 7:41 AMCalled to: Name:FERNANDAruelReadback by:/idalia 07/05/2019 / 7:40 AM Erythrocyte mean 93.9 fl Normal (applies MCV [facility] corpuscular volume to non-numeric Health System [Entitic volume] by results) Automated count Erythrocyte mean 30.4 pg Normal (applies MCH [facility] corpuscular to non-numeric Health System hemoglobin [Entitic results) mass] by Automated count Erythrocyte mean 32.4 Normal (applies MCHC [facility] corpuscular {gm/dL} to non-numeric Health System hemoglobin results) concentration [Mass/volume] by Automated count Erythrocyte 19.6 % Above high normal RDW-CV [facility] distribution width Health Syst em [Entitic volume] by Automated count Platelets [#/volume] 201 Normal (applies Platelet Coun t [facility] in Plasma by {10^3_uL} to non-numeric Health Syste m Automated count results) Platelet mean volume 11.1 fl Normal (applies MPV [facility] [Entitic volume] in to non-numeric [facility] Blood by Automated results) count Nucleated 0.4 Above high normal NRBC % [facility] erythrocytes {/100_WBC} Health System [#/volume] in Body fluid Neutrophils/100 81.3 % Above high normal Neutrophil % [facility] leukocytes in Blood Health Sys tem by Automated count NRBC# 0.04 Above high normal NRBC # [facility] {10^3_uL} Health System Neutrophils 7.5 Normal (applies Neutrophil # [facility] [#/volume] in Body {10^3_uL} to non-numeric Health System fluid results) Lymphocyte percent 0.7 Below low normal Lymphocyte # [facility] differential count {10^3_uL} Health Syst em (procedure) Lymphocytes 8.0 % Below low normal Lymphocyte % [facility] [#/volume] in Blood Health Sys tem by Automated count Monocytes/100 8.0 % Normal (applies Monocyte % [facility] leukocytes in Blood to non-numeric Healt h System results) Monocytes [#/volume] 0.7 Normal (applies Monocyte # [facility] in Blood by Manual {10^3_uL} to non-numeric Health System count results) Eosinophils 0.19 Normal (applies Eosinophil # [facility] [#/volume] in Blood {10^3_uL} to non-numeric Healt h System results) Eosinophils/100 2.1 % Normal (applies Eosinophil % [facility] leukocytes in to non-numeric Health Syst em Unspecified specimen results) Basophils/100 0.4 % Normal (applies Basophil % [facility] leukocytes in to non-numeric Health Syst em Unspecified specimen results) by Manual count Basophils [#/volume] 0.04 Normal (applies Basophil # [facility] in Blood by {10^3_uL} to non-numeric Health System Automated count results) ImmatureGranulocytes 0.02 Normal (applies Immature [facility] # {10^3_uL} to non-numeric Granulocytes # Health Sys tem results) ImmatureGranulocytes 0.2 % Normal (applies Immature [facility] % to non-numeric Granulocytes % Health Sys tem results) ID Date Data Source [id number] 07/15/2019 07:06:11 PM EDT [facility] System Name Value Range Interpretation Description Data Sup porting Code Source(s) Document(s ) Prothrombintim 21.00 Above high normal Prothrombin [facility] e(PT) {seconds time (PT) Health System } INR in Blood 1.80 Above high normal INR Result [facility] by Coagulation {Ratio} Health System assay Normal = 0.7-1.1Therapeutic = 2.0-3.0Mec hanical Heart = 3.0-4.5 ID Date Data Source [id number] 07/15/2019 07:06:11 PM EDT [facility] System Name Value Range Interpretation Description Data Sup porting Code Source(s) Document(s ) Magnesium 1.5 Normal (applies Magnesium, [facility] [Mass/volume] {mEq/L} to non-numeric Serum Health Syst em in Serum or results) Plasma ID Date Data Source [id number] 07/15/2019 07:06:11 PM EDT [facility] Name Value Range Interpretation Description Data Sup porting Code Source(s) Document(s ) Sodium 139 Normal (applies Sodium, Serum [facility] [Moles/volume] in mmol/L to non-numeric Health Serum or Plasma results) System Potassium 5.1 Above high Potassium, [facility] [Mass/volume] in mmol/L normal Serum Health Serum or Plasma System Chloride 109 Normal (applies Chloride, [facility] [Moles/volume] in mmol/L to non-numeric Serum Health Serum or Plasma results) System Carbon dioxide, 21.3 Normal (applies CO2, Serum [facility] total mmol/L to non-numeric Health [Moles/volume] in results) System Serum or Plasma TotalProtein 6.8 Normal (applies Total Protein [facility] mg/dl to non-numeric Health results) System Glucose 89 Normal (applies Glucose, [facility] [Mass/volume] in mg/dL to non-numeric Serum Health Serum or Plasma results) System Urea nitrogen 104 Above high Blood Urea [facility] [Mass/volume] in mg/dl normal Nitrogen, Health Serum or Plasma Serum System Creatinine 3.02 Above high Creatinine, [facility] [Mass/volume] in mg/dl normal Serum Health Serum or Plasma System Alkaline 129 Above high Alkaline [facility] phosphatase {IU/L} normal Phosphatase, Health isoenzymes Serum System [Enzymatic activity/volume] in Serum or Plasma by Heat stability Bilirubin.total 1.6 Above high Bilirubin, [facility] [Mass/volume] in mg/dl normal Serum Total Health Serum or Plasma System DirectBilirubin 0.4 Normal (applies Direct [facility] mg/dl to non-numeric Bilirubin Health results) System Aspartate 29 Normal (applies Aspartate [facility] aminotransferase {IU/L} to non-numeric Transaminase, Heal th [Enzymatic results) Serum System activity/volume] in Serum or Plasma by With P-5'-P Albumin 2.6 Below low normal Albumin, [facility] [Mass/volume] in {gm/dl} Serum Health Serum or Plasma System I.Phosphorus 4.8 Normal (applies I. Phosphorus [facility] mg/dl to non-numeric Health results) System Alanine 18 Normal (applies Alanine [facility] aminotransferase {IU/L} to non-numeric Aminotransfer Heal th [Enzymatic results) ase, Serum System activity/volume] in Serum or Plasma Calcium 8.0 Below low normal Calcium, [facility] [Mass/volume] in mg/dl Total Serum Health Serum or Plasma System A/GRatio 0.62 Normal (applies A/G Ratio [facility] to non-numeric Health results) System Urate 4.0 Normal (applies Uric Acid, [facility] [Mass/volume] in mg/dl to non-numeric Serum Health Serum or Plasma results) System Anion gap in Serum 8.70 Normal (applies Anion Gap [facility] or Plasma mmol/L to non-numeric Health results) System Glomerular 21.00 Normal (applies GFR [facility] filtration to non-numeric Health rate/1.73 sq results) System M.predicted [Volume Rate/Area] in Serum or Plasma by Creatinine-based formula (CKD-EPI) eGFR will provide clinicians with a more accurate indicator of renal function then the serum creatinine. The eGFR is automa tically calculated from an empiric formula (endorsed by the National [employer] ion) which incorporates age, sex, and race.Clinicians may notice surprisingly low GFR's with serum creatinine valueswithin normal range- particularly in elderly wo men (with low muscle mass).In the hospital setting, the eGFR should add an element of safety in drug dosing, in assessing the risk of IV contrast administration, and in assessing vascular risk.The NKF staging system is as follows:Normal: eGFR >90 with no kidney markersStage 1: eGFR >90 with kidney markers*Stage 2: eGFR 60- 89Stage 3: eGFR 30-59Stage 4: eGFR 15-29Stage 5: eGFR <15 (usually requir ing dialysis)*Markers include: Proteinuria, Hematuria, abnormal imaging-studies, or other blood or urine test abnormalities ID Date Data Source [id number] 07/15/2019 07:06:11 PM EDT [facility] please draw after blood transfusion Name Value Range Interpretation Description Data Sup porting Code Source(s) Document(s ) Hemoglobin 7.6 Below lower panic Hemoglobin [facility] [Mass/volume] {gm/dL} limits Health System in Blood Result Reporting|Telephone|denita germain/idalia| 07/05/2019 at 3:41 PMCalled to:denita domingoTech Name:smReadback by:denita germain/shaniqua cintron 07/05/2019 / 3:40 PM Hematocrit [Volume 24.7 % Below low normal Hematocrit [facility] Fraction] of Blood System Erythrocyte mean 93.2 fl Normal (applies to [facility] corpuscular volume non-numeric System [Entitic volume] by results) Automated count ID Date Data Source [id number] 07/15/2019 07:06:11 PM EDT [facility] Name Value Range Interpretation Description Data Sup porting Code Source(s) Document(s ) Leukocytes 7.2 Normal (applies WBC Count [facility] [#/volume] in {10^3_uL to non-numeric Health Syst em Unspecified } results) specimen by Automated count MANUAL DONE 07/03 Erythrocytes 2.89 {10^6_uL} Below low RBC Count [facility] [#/volume] in Blood normal Health Sys tem by Automated count Hemoglobin 8.3 {gm/dL} Below low Hemoglobin [facility] [Mass/volume] in normal Health System Blood Hematocrit [Volume 28.3 % Below low Hematocrit [facility] Fraction] of Blood normal Health Syst em Erythrocyte mean 97.9 fl Normal MCV [facility] corpuscular volume (applies to Health Sy stem [Entitic volume] by non-numeric Automated count results) Erythrocyte mean 29.3 {gm/dL} Below low MCHC [facility] corpuscular normal Health System hemoglobin concentration [Mass/volume] by Automated count Erythrocyte mean 28.7 pg Normal MCH [facility] corpuscular (applies to Health System hemoglobin [Entitic non-numeric mass] by Automated results) count Erythrocyte 19.9 % Above high RDW-CV [facility] distribution width normal Health Syst em [Entitic volume] by Automated count Platelets [#/volume] 169 {10^3_uL} Normal Platelet Count [facility] in Plasma by (applies to Health System Automated count non-numeric results) Platelet mean volume 11.4 fl Normal MPV [facility] [Entitic volume] in (applies to [facility] Blood by Automated non-numeric count results) Nucleated 0.0 {/100_WBC} Normal NRBC % [facility] erythrocytes (applies to Health System [#/volume] in Body non-numeric fluid results) NRBC# 0.00 {10^3_uL} Normal NRBC # [facility] (applies to Health System non-numeric results) Neutrophils/100 70.2 % Normal Neutrophil % [facility] leukocytes in Blood (applies to Health S ystem by Automated count non-numeric results) Neutrophils 5.1 {10^3_uL} Normal Neutrophil # [facility] [#/volume] in Body (applies to Health Sy stem fluid non-numeric results) Lymphocytes 11.5 % Below low Lymphocyte % [facility] [#/volume] in Blood normal Health Sys tem by Automated count Lymphocyte percent 0.8 {10^3_uL} Below low Lymphocyte # [facility] differential count normal Health Syst em (procedure) Monocytes/100 12.7 % Above high Monocyte % [facility] leukocytes in Blood normal Health Sys tem Monocytes [#/volume] 0.9 {10^3_uL} Normal Monocyte # [facility] in Blood by Manual (applies to Health Sy stem count non-numeric results) Eosinophils/100 4.9 % Normal Eosinophil % [facility] leukocytes in (applies to Health System Unspecified specimen non-numeric results) Eosinophils 0.35 {10^3_uL} Normal Eosinophil # [facility] [#/volume] in Blood (applies to Health S ystem non-numeric results) Basophils/100 0.3 % Normal Basophil % [facility] leukocytes in (applies to Health System Unspecified specimen non-numeric by Manual count results) Basophils [#/volume] 0.02 {10^3_uL} Normal Basophil # [facility] in Blood by (applies to Health System Automated count non-numeric results) ImmatureGranulocytes 0.4 % Normal Immature [facility] % (applies to Granulocytes % Health System non-numeric results) ImmatureGranulocytes 0.03 {10^3_uL} Normal Immature [facility] # (applies to Granulocytes # Health System non-numeric results) ID Date Data Source [id number] 07/15/2019 07:06:11 PM EDT [facility] Name Value Range Interpretation Description Data Sup porting Code Source(s) Document(s ) Magnesium 1.6 Normal (applies Magnesium, [facility] [Mass/volume] {mEq/L} to non-numeric Serum Health Syst em in Serum or results) Plasma ID Date Data Source [id number] 07/15/2019 07:06:11 PM EDT [facility] Name Value Range Interpretation Description Data Sup porting Code Source(s) Document(s ) Sodium 141 Normal (applies Sodium, Serum [facility] [Moles/volume] in mmol/L to non-numeric Health Serum or Plasma results) System Potassium 4.6 Normal (applies Potassium, [facility] [Mass/volume] in mmol/L to non-numeric Serum Health Serum or Plasma results) System Chloride 111 Normal (applies Chloride, [facility] [Moles/volume] in mmol/L to non-numeric Serum Health Serum or Plasma results) System Carbon dioxide, 24.1 Normal (applies CO2, Serum [facility] total mmol/L to non-numeric Health [Moles/volume] in results) System Serum or Plasma TotalProtein 6.4 Normal (applies Total Protein [facility] mg/dl to non-numeric Health results) System Glucose 84 Normal (applies Glucose, [facility] [Mass/volume] in mg/dL to non-numeric Serum Health Serum or Plasma results) System Urea nitrogen 68 Above high Blood Urea [facility] [Mass/volume] in mg/dl normal Nitrogen, Health Serum or Plasma Serum System Creatinine 2.33 Above high Creatinine, [facility] [Mass/volume] in mg/dl normal Serum Health Serum or Plasma System Alkaline 123 Above high Alkaline [facility] phosphatase {IU/L} normal Phosphatase, Health isoenzymes Serum System [Enzymatic activity/volume] in Serum or Plasma by Heat stability Bilirubin.total 0.9 Normal (applies Bilirubin, [facility] [Mass/volume] in mg/dl to non-numeric Serum Total Health Serum or Plasma results) System DirectBilirubin 0.3 Normal (applies Direct [facility] mg/dl to non-numeric Bilirubin Health results) System Aspartate 24 Normal (applies Aspartate [facility] aminotransferase {IU/L} to non-numeric Transaminase, Heal th [Enzymatic results) Serum System activity/volume] in Serum or Plasma by With P-5'-P Albumin 2.2 Below low normal Albumin, [facility] [Mass/volume] in {gm/dl} Serum Health Serum or Plasma System I.Phosphorus 3.9 Normal (applies I. Phosphorus [facility] mg/dl to non-numeric Health results) System Alanine 23 Normal (applies Alanine [facility] aminotransferase {IU/L} to non-numeric Aminotransfer Heal th [Enzymatic results) ase, Serum System activity/volume] in Serum or Plasma Calcium 7.4 Below low normal Calcium, [facility] [Mass/volume] in mg/dl Total Serum Health Serum or Plasma System A/GRatio 0.52 Normal (applies A/G Ratio [facility] to non-numeric Health results) System Urate 5.2 Normal (applies Uric Acid, [facility] [Mass/volume] in mg/dl to non-numeric Serum Health Serum or Plasma results) System Anion gap in Serum 5.90 Normal (applies Anion Gap Archie janett or Plasma mmol/L to non-numeric Health results) System Glomerular 29.00 Normal (applies GFR [facility] filtration to non-numeric Health rate/1.73 sq results) System M.predicted [Volume Rate/Area] in Serum or Plasma by Creatinine-based formula (CKD-EPI) eGFR will provide clinicians with a more accurate indicator of renal function then the serum creatinine. The eGFR is automa tically calculated from an empiric formula (endorsed by the National Kidney [employer] ion) which incorporates age, sex, and race.Clinicians may notice surprisingly low GFR's with serum creatinine valueswithin normal range- particularly in elderly wo men (with low muscle mass).In the hospital setting, the eGFR should add an element of safety in drug dosing, in assessing the risk of IV contrast administration, and in assessing vascular risk.The NKF staging system is as follows:Normal: eGFR >90 with no kidney markersStage 1: eGFR >90 with kidney markers*Stage 2: eGFR 60- 89Stage 3: eGFR 30-59Stage 4: eGFR 15-29Stage 5: eGFR <15 (usually requir ing dialysis)*Markers include: Proteinuria, Hematuria, abnormal imaging-studies, or other blood or urine test abnormalities ID Date Data Source [id number] 07/15/2019 07:06:11 PM EDT [facility] System Name Value Range Interpretation Description Data Sup porting Code Source(s) Document(s ) Prothrombintim 14.60 Above high normal Prothrombin Archie janett e(PT) {seconds time (PT) Health System } INR in Blood 1.26 Above high normal INR Result [facility] by Coagulation {Ratio} Health System assay Normal = 0.7-1.1Therapeutic = 2.0-3.0Mec hanical Heart = 3.0-4.5 ID Date Data Source [id number] 07/15/2019 07:06:11 PM EDT [facility] System Name Value Range Interpretation Description Data Sup porting Code Source(s) Document(s ) Leukocytes 6.2 Normal (applies WBC Count [facility] [#/volume] in {10^3_uL to non-numeric Health Unspecified } results) System specimen by Automated count Erythrocytes 2.76 Below low normal RBC Count [facility] [#/volume] in {10^6_uL Health Blood by } System Automated count Hemoglobin 8.1 Below low normal Hemoglobin [facility] [Mass/volume] in {gm/dL} Health Blood System Hematocrit 27.0 % Below low normal Hematocrit [facility] [Volume Health Fraction] of System Blood Erythrocyte mean 97.8 fl Normal (applies MCV [facility] corpuscular to non-numeric Health volume [Entitic results) System volume] by Automated count Erythrocyte mean 29.3 pg Normal (applies MCH [facility] corpuscular to non-numeric Health hemoglobin results) System [Entitic mass] by Automated count Erythrocyte mean 30.0 Normal (applies MCHC [facility] corpuscular {gm/dL} to non-numeric Health hemoglobin results) System concentration [Mass/volume] by Automated count Erythrocyte 18.7 % Above high RDW-CV [facility] distribution normal Health width [Entitic System volume] by Automated count Platelets 160 Normal (applies Platelet Count [facility] [#/volume] in {10^3_uL to non-numeric Health Plasma by } results) System Automated count Platelet mean 11.5 fl Normal (applies MPV [facility] volume [Entitic to non-numeric Health volume] in Blood results) System by Automated count Nucleated 0.0 Normal (applies NRBC % [facility] erythrocytes {/100_WB to non-numeric Health [#/volume] in C} results) System Body fluid NRBC# 0.00 Normal (applies NRBC # [facility] {10^3_uL to non-numeric Health } results) System Neutrophils/100 68.1 % Normal (applies Neutrophil % Archie janett leukocytes in to non-numeric Health Blood by results) System Automated count Neutrophils 4.2 Normal (applies Neutrophil # [facility] [#/volume] in {10^3_uL to non-numeric Health Body fluid } results) System Lymphocytes 13.4 % Below low normal Lymphocyte % [facility] [#/volume] in Health Blood by System Automated count Lymphocyte 0.8 Below low normal Lymphocyte # [facility] percent {10^3_uL Health differential } System count (procedure) Monocytes/100 12.1 % Above high Monocyte % [facility] leukocytes in normal Health Blood System Monocytes 0.8 Normal (applies Monocyte # [facility] [#/volume] in {10^3_uL to non-numeric Health Blood by Manual } results) System count Eosinophils/100 5.5 % Above high Eosinophil % [facility] leukocytes in normal Health Unspecified System specimen Eosinophils 0.34 Normal (applies Eosinophil # [facility] [#/volume] in {10^3_uL to non-numeric Health Blood } results) System Basophils/100 0.6 % Normal (applies Basophil % [facility] leukocytes in to non-numeric Health Unspecified results) System specimen by Manual count Basophils 0.04 Normal (applies Basophil # [facility] [#/volume] in {10^3_uL to non-numeric Health Blood by } results) System Automated count ImmatureGranuloc 0.02 Normal (applies Immature [facility] ytes# {10^3_uL to non-numeric Granulocytes # Health } results) System ImmatureGranuloc 0.3 % Normal (applies Immature [facility] ytes% to non-numeric Granulocytes % Health results) System ID Date Data Source [id number] 07/15/2019 07:06:11 PM EDT [facility] Name Value Range Interpretation Description Data Sup porting Code Source(s) Document(s ) Magnesium 1.6 Normal (applies Magnesium, [facility] [Mass/volume] {mEq/L} to non-numeric Serum Health Syst em in Serum or results) Plasma ID Date Data Source [id number] 07/15/2019 07:06:11 PM EDT [facility] Name Value Range Interpretation Description Data Sup porting Code Source(s) Document(s ) Sodium 140 Normal (applies Sodium, Serum [facility] [Moles/volume] in mmol/L to non-numeric Health Serum or Plasma results) System Potassium 4.9 Normal (applies Potassium, [facility] [Mass/volume] in mmol/L to non-numeric Serum Health Serum or Plasma results) System Chloride 112 Above high Chloride, [facility] [Moles/volume] in mmol/L normal Serum Health Serum or Plasma System Carbon dioxide, 22.4 Normal (applies CO2, Serum [facility] total mmol/L to non-numeric Health [Moles/volume] in results) System Serum or Plasma TotalProtein 6.2 Below low normal Total Protein [facility] mg/dl [facility] System Glucose 82 Normal (applies Glucose, [facility] [Mass/volume] in mg/dL to non-numeric Serum Health Serum or Plasma results) System Urea nitrogen 56 Above high Blood Urea [facility] [Mass/volume] in mg/dl normal Nitrogen, Health Serum or Plasma Serum System Creatinine 2.19 Above high Creatinine, [facility] [Mass/volume] in mg/dl normal Serum Health Serum or Plasma System Alkaline 126 Above high Alkaline [facility] phosphatase {IU/L} normal Phosphatase, Health isoenzymes Serum System [Enzymatic activity/volume] in Serum or Plasma by Heat stability Bilirubin.total 0.8 Normal (applies Bilirubin, [facility] [Mass/volume] in mg/dl to non-numeric Serum Total Health Serum or Plasma results) System DirectBilirubin 0.2 Normal (applies Direct [facility] mg/dl to non-numeric Bilirubin Health results) System Aspartate 15 Normal (applies Aspartate [facility] aminotransferase {IU/L} to non-numeric Transaminase, [facility] [Enzymatic results) Serum System activity/volume] in Serum or Plasma by With P-5'-P Albumin 2.0 Below low normal Albumin, [facility] [Mass/volume] in {gm/dl} Serum Health Serum or Plasma System I.Phosphorus 3.8 Normal (applies I. Phosphorus [facility] mg/dl to non-numeric Health results) System Alanine 17 Normal (applies Alanine [facility] aminotransferase {IU/L} to non-numeric Aminotransfer [Enzymatic results) ase, Serum System activity/volume] in Serum or Plasma Calcium 7.3 Below low normal Calcium, [facility] [Mass/volume] in mg/dl Total Serum Health Serum or Plasma System A/GRatio 0.48 Normal (applies A/G Ratio [facility] to non-numeric Health results) System Urate 5.5 Normal (applies Uric Acid, [facility] [Mass/volume] in mg/dl to non-numeric Serum Health Serum or Plasma results) System Anion gap in Serum 5.60 Normal (applies Anion Gap Archie janett or Plasma mmol/L to non-numeric Health results) System Glomerular 31.00 Normal (applies GFR [facility] filtration to non-numeric Health rate/1.73 sq results) System M.predicted [Volume Rate/Area] in Serum or Plasma by Creatinine-based formula (CKD-EPI) eGFR will provide clinicians with a more accurate indicator of renal function then the serum creatinine. The eGFR is automa tically calculated from an empiric formula (endorsed by the National Kidney [employer] ion) which incorporates age, sex, and race.Clinicians may notice surprisingly low GFR's with serum creatinine valueswithin normal range- particularly in elderly wo men (with low muscle mass).In the hospital setting, the eGFR should add an element of safety in drug dosing, in assessing the risk of IV contrast administration, and in assessing vascular risk.The NKF staging system is as follows:Normal: eGFR >90 with no kidney markersStage 1: eGFR >90 with kidney markers*Stage 2: eGFR 60- 89Stage 3: eGFR 30-59Stage 4: eGFR 15-29Stage 5: eGFR <15 (usually requir ing dialysis)*Markers include: Proteinuria, Hematuria, abnormal imaging-studies, or other blood or urine test abnormalities ID Date Data Source [id number] 07/15/2019 07:06:11 PM EDT [facility] System Name Value Range Interpretation Description Data Sup porting Code Source(s) Document(s ) Prothrombintim 14.40 Above high normal Prothrombin Archie janett e(PT) {seconds time (PT) Health System } INR in Blood 1.24 Above high normal INR Result [facility] re by Coagulation {Ratio} Health System assay Normal = 0.7-1.1Therapeutic = 2.0-3.0Mec hanical Heart = 3.0-4.5 ID Date Data Source [id number] 07/04/2019 05:20:00 PM EDT [facility] Name Value Range Interpretation Code Description Data [facility] rce(s) Supporting Document(s ) 2019-nCoV [facility] RNA XXX JUANITA+probe- Imp This lab was ordered by [address] [place] [address] ([facility]) and reported by [employer]. ID Date Data Source [id number] 07/04/2019 03:49:00 PM EDT [facility] Chest radiographsJulius Rxoecn6 years M aleCLINICAL INFORMATION: Post shiley insertion;TECHNIQUE: Frontal and latera l views of the chest wereobtained.COMPARISON: Chestx-ray of earlier same day.FINDINGS :A right approach central line is visualized, the tip terminatesinthe region of the mi dsuperior vena cava. There is unchangedmarked cardiomegaly and moderat e aortic tortuosity.Prominenceof the lung interstitial/vascular markings is noted. No large pleural effusion is seen.Osseousstructures demonstrate demin eralization and degenerativechanges.IMPRESSION: Marke d cardiomegaly.There isinterstitial/vascular congestion similar to prior study.There is improved left lower lobevisualization.A right approach central line terminates i n the region of themidsuperior venacava.Electronically Signed:Lise Subramanian, at 15:55 EDTTel ,Service support [phone], [phone] Name Value Range Interpretation Code Description Data [facility] rce(s) Supporting Document(s ) ID Date Data Source [id number] 07/04/2019 08:25:00 AM EDT [facility] STUDY: RENAL ULTRASOUND - [facility] N FOR EXAM: Male, 59 years old. RAMY or CKD;TECHNIQUE: Ultrasound evaluation o f the bilateral kidneys wasperformed with real-time ultrasonography and staticgrayscaleimaging.COMPARISON:None. FINDIN GS:Th e right kidney measures 9.2 x 3.9 x 4.2 cm.There is no stoneor hydronephrosis. The kidney is normal in echotexture.7 mm hyp oechoic lesion withinthe midpole appears compatiblewith a cyst.The left kidney me asures 11 x 6.2 x 5.5 cm. There is nostoneor hydronephrosis. The kidney is normal in echotexture with 4cm hypoechoic posterior acoustic enhancinglesion compatiblewith a cyst.The urinary bladder is distended without stone. IVC and theaorta areunre markable. Aorta measures 1.9 cm. IM PRESSION:Bilateral renalcysts.Electronically Signed:Morris Young, at 9 :45 EDTTel , Servicesupport , [phone] OF ADDENDUMKidneys are echogenicbilaterallysuggestive of medica l renal disease.Electronically Signed:Jeanna, at 15 :58 EDTTel , Service support ,[phone] Name Value Range Interpretation Code Description Data [facility] rce(s) Supporting Document(s ) ID Date Data Source [id number] 07/04/2019 02:22:00 AM EDT [facility] HISTORY: Sepsis;EXAMINATION/TECHNIQUE:XR Chest 1 View:COMPARISON: None FINDINGS:LINES/DEVICES:None.LUNG S:Bilateral perihilar interstitial thickening with p atchy airspaceopacities in the left midand bilateral lower lung. Likely lefteffusion. No pneu mothorax.MEDIASTINUM: Nocardiomegaly.MUSCULOSKELETAL: No acute osseous finding.IMPRESSION:Bilateral perihilar andbasilar mild interstitial edema withp atchy opacities possibly representing interstitial and alveolaredema oratelectasis and pneu monia. Radiographic follow-uprecommended. at 0248 Reported and signed by: Margarita Ramirez MDEnvision Physicia [facility] Healthcare CorporationrvicesKINDRED [facility]PITAL DR MARGARITA RAMIREZ MS [phone] Signed:Margarita calero MD at 2:47 EDTTel , Service support , [phone] Name Value Range Interpretation Code Description Data [facility] rce(s) Supporting Document(s ) Procedure Vital Signs ID Date Data Source UNK Name Value Range Interpretation Code Description Data Source(s) Body temperature 97.5 [degF] 0 - 200 Normal (applies to 97.5 [degF ] [facility] non-numeric results) [facility] Body temperature 36.3 Lacie 0 - 99.9 Below low normal 36.3 Lacie Mo [facility] System Diastolic blood 61 mm[Hg] 0 - 999 Below low normal 61 mm[Hg] [facility] System Systolic blood 103 mm[Hg] 0 - 999 Below low normal 103 mm[Hg] [facility] System Oxygen saturation 100 % 0 - 999 Normal (applies to 100 % [facility] in Arterial blood non-numeric results) [facility] System by Pulse oximetry Respiratory rate 18 0 - 999 Above high normal 18 M [facility] Heart rate 55 0 - 999 Below low normal 55 [facility] Body mass index 30.5 kg/m2 30.5 kg/m2 [facility] e (BMI) [Ratio] Health Syst em Body weight 99.1 kg 99.1 kg [facility] Body surface area 2.1 m2 2.1 m2 [facility] ore Derived from Health Syste m formula Body height 180.34 cm 180.34 cm [facility] Patient Treatment Plan of Care Planned Activity Planned Date Details Description Data Source (s) pantoprazole 40 MG 07/11/2019 12:28:33 Mo [facility] Delayed Release Oral PM EDT System Tablet"
--- NOTE | 2020-01-24 18:18 | PDOC ---
History of Present Illness - History of Present Illness Initial Comments: 59 YOM h/o afib, peripheral artery disease, congestive heart failure, chronic leg wounds presents from alf for low hemoglobin. Patient in rehab at nursing facility for previous hospitalization for infected leg wounds. This afternoon, labs were drawn, found to have hemoglobin of 6.4. He denies CP, SOB, N/V/D, fever, chills, blood in urine or stool, feeling faint or lightheaded, recent sick contacts or travel. Constitutional: No Weight Change, No Fever, No Chills, No Night Sweats, No Fatigue, No Malaise ENT/Mouth: No Hearing Changes, No Ear Pain, No Nasal Congestion, No Sinus Pain, No Hoarseness, No sore throat, No Rhinorrhea, No Swallowing Difficulty Eyes: No Eye Pain, No Swelling, No Redness, No Foreign Body, No Discharge, No Vision Changes Cardiovascular: No Chest Pain, No SOB, No PND, No Dyspnea on Exertion, No Orthopnea, No Claudication, No Edema, No Palpitations Respiratory: No Cough, No Sputum, No Wheezing, No Smoke Exposure, No Dyspnea Gastrointestinal: No Nausea, No Vomiting, No Diarrhea, No Constipation, No Pain, No Heartburn, No Anorexia, No Dysphagia, No Hematochezia, No Melena, No Flatulence, No Jaundice Musculoskeletal: No Arthralgias, No Myalgias, No Joint Swelling, No Joint S tiffness, No Back Pain, No Neck Pain, No Injury History Skin: No Skin Lesions, No Pruritis, No Hair Changes, No Breast/Skin Changes, No Nipple Discharge Neuro: No Weakness, No Numbness, No Paresthesias, No Loss of Consciousness, No Syncope, No Dizziness, No Headache, No Coordination Changes, No Recent Falls Psych: No Anxiety/Panic, No Depression, No Insomnia, No Personality Changes, No Delusions, No Rumination, No SI/HI/AH/VH, No Social Issues, No Memory Changes, No Violence/Abuse Hx., No Eating Concerns Heme/Lymph: No Bruising, No Bleeding, No Transfusions History, No Lymphadenopathy Endocrine: No Polyuria, No Polydipsia, No Temperature Intolerance 01/24/20 22:15 <Anselmo Ro - Last Filed: 01/25/20 01:30> <Harriet Philip - Last Filed: 01/25/20 19:59> - General Chief Complaint: Abnormal Lab Results (Outside) Stated Complaint: ABNORMAL LABS Time Seen by Provider: 01/24/20 17:41 Past History - Medical History Anemia: No Asthma: No Cancer: No Cardiac Disorders: Yes (afib, pid,) CVA: No COPD: No (covid-19) CHF: Yes DVT: No Dementia: No Diabetes: No GI Disorders: No Disorders: No HTN: Yes (gout) Hypercholesterolemia: No Liver Disease: No Seizures: No Thyroid Disease: No Other medical history: primary adrenocortical insufficiency, - Surgical History Abdominal Surgery: No Appendectomy: Yes Cardiac Surgery: No Cholecystectomy: No Lung Surgery: No Neurologic Surgery: No Orthopedic Surgery: No - Immunization History Immunization Up to Date: Yes - Psycho-Social/Smoking History Smoking Status: No Smoking History: Unknown if ever smoked Have you smoked in the past 12 months: No Number of Cigarettes Smoked Daily: 0 - Substance Abuse Hx (Audit-C & DAST Scrn) How often the patient has a drink containing alcohol: Never Score: In Men: 4 or > Positive; In Women: 3 or > Positive: 0 Screen Result (Pos requires Nsg. Audit-10AR): Negative In the last yr the pt used illegal drug/Rx for NonMed reason: No Score: Yes response is considered Positive: 0 Screen Result (Positive result requires Nsg. DAST-10): Negative <Anselmo Ro - Last Filed: 01/25/20 01:30> <Harriet Philip - Last Filed: 01/25/20 19:59> - Medical History Allergies/Adverse Reactions: Allergies Allergy/AdvReac Type Severity Reaction Status Date / Time Egg Derived Allergy Unknown Verified 01/24/20 17:47 [place] And Derivatives Allergy Verified 01/24/20 17:47 lactose AdvReac Verified 01/24/20 17:47 Home Medications: Ambulatory Orders Furosemide [Lasix] 40 mg PO DAILY 06/24/16 Allopurinol 300 mg PO DAILY 06/07/18 Folic Acid 1 mg PO DAILY 06/07/18 Aspirin [ASA -] 81 mg PO DAILY #30 tab.chew 06/23/18 Ferric Citrate [Auryxia] 210 mg PO BID 02/15/19 Carvedilol [Coreg -] 6.25 mg PO BID #60 tablet 02/22/19 Isosorbide Mononitrate [Imdur -] 30 mg PO DAILY #30 tab.sr.24h 02/22/19 hydrALAZINE HCL [Apresoline -] 10 mg PO BID #60 tablet 02/22/19 Sodium Zirconium Cyclosilicate [Lokelma] 10 gm PO MOWEFR #25 powd.pack 02/24/19 Tamsulosin HCl 0.4 mg PO HS #30 capsule 02/24/19 Allopurinol 300 mg PO DAILY 04/12/19 Ferrous Sulfate 325 mg PO DAILY 04/12/19 Multivitamin with Iron 1 tab PO DAILY 04/12/19 *Physical Exam - Vital Signs Last Vital Signs Temp Pulse Resp BP Pulse Ox 97.5 F L 73 16 117/65 100 01/24/20 17:35 01/24/20 17:35 01/24/20 17:35 01/24/20 17:35 01/24/20 17:35 - Physical Exam General Appearance: Yes: Nourished, Appropriately Dressed, Obese HEENT: positive: EOMI, CASSIE, Normal ENT Inspection, Normal Voice, Symmetrical, TMs Normal, Pharynx Normal Neck: positive: Trachea midline, Normal Thyroid Respiratory/Chest: positive: Lungs Clear, Normal Breath Sounds Cardiovascular: positive: Regular Rhythm, Regular Rate, S1, S2 Gastrointestinal/Abdominal: positive: Normal Bowel Sounds, Flat, Soft Musculoskeletal: positive: Normal Inspection Neurologic: positive: gold and silver assayer II-XII NML intact, Fully Oriented, Alert, Normal Mood/Affect, Normal Response, Motor Strength 5/5 <Anselmo Ro - Last Filed: 01/25/20 01:30> - Vital Signs Last Vital Signs Temp Pulse Resp BP Pulse Ox 98 F 80 20 134/65 97 01/25/20 15:41 01/25/20 15:41 01/25/20 15:41 01/25/20 15:41 01/25/20 16:41 - Physical Exam Rectal Exam: positive: heme negative stool Extremity: positive: Normal Capillary Refill, Normal Inspection, Normal Range of Motion Integumentary: positive: Normal Color, Dry, Warm <Harriet Philip - Last Filed: 01/25/20 19:59> ED Treatment Course - LABORATORY CBC & Chemistry Diagram: 01/24/20 18:40 01/24/20 19:30 - RADIOLOGY Radiology Studies Ordered: Category Date Time Status CHEST - PA [RAD] Stat Radiology 01/24/20 18:10 Ordered <RishibeckaAnselmo - Last Filed: 01/25/20 01:30> - LABORATORY CBC & Chemistry Diagram: 01/25/20 07:30 01/25/20 07:30 - ADDITIONAL ORDERS Additional order review: Laboratory Results 01/24/20 01/24/20 19:30 18:40 Sodium 143 Potassium 4.9 Chloride 114 H Carbon Dioxide 24 Anion Gap 5 L BUN 76.5 H Creatinine 2.1 H Est GFR (CKD-EPI)AfAm 38.22 Est GFR (CKD-EPI)NonAf 32.98 Random Glucose 103 Calcium 8.3 L Iron 10 L TIBC 208 L Iron Saturation 4 L Unsaturated IBC 198 L Ferritin 42.7 Total Bilirubin 0.2 AST 13 L ALT 12 L Alkaline Phosphatase 109 LD Total 158 Total Protein 8.0 Albumin 2.2 L Blood Type B POSITIVE Antibody Screen Negative Crossmatch See Detail 01/24/20 18:40 RBC 2.85 L MCV 78.8 L MCHC 30.5 L RDW 17.9 H MPV 9.1 Neutrophils % 81.9 Lymphocytes % 9.3 D Monocytes % 7.0 Eosinophils % 0.9 Basophils % 0.9 - Medications Given in the ED: ED Medications Discontinued Medications Generic Name Dose Route Start Last Admin Trade Name Aliyah PRN Reason Stop Dose Admin Furosemide 40 mg 01/24/20 20:03 01/25/20 07:26 Lasix Injection - IVPUSH 01/24/20 20:04 Not Given ONCE ONE Ferric Carboxymaltose 750 mg/ 265 mls @ 530 mls/hr 01/25/20 15:00 01/25/20 15:13 Sodium Chloride IVPB 01/25/20 15:29 530 mls/hr ONCE ONE Administration <Harriet Philip - Last Filed: 01/25/20 19:59> Medical Decision Making - Medical Decision Making 59 YOM w/ multiple medical comorbidities presents from alf for hemoglobin 6.4 - vitals wnl - exam: - GI bleed vs anemia of chronic disease - will do CBC, CMP, type and screen, coags, reassess +/- transfusion hgb 6.9 will transfuse 2 units CXR shows increased vascular markings, will transfuse slowly and give lasix in between units given h/o CHF with low EF will admit for blood transfusion 01/25/20 01:29 <Anselmo Ro - Last Filed: 01/25/20 01:30> Discharge - Discharge Information Problems reviewed: Yes <Anselmo Ro - Last Filed: 01/25/20 01:30> <Hariret Philip - Last Filed: 01/25/20 19:59> - Discharge Information Clinical Impression/Diagnosis: Anemia Qualifiers: Anemia type: unspecified type Qualified Code(s): D64.9 - Anemia, unspecified Condition: Guarded
--- NOTE | 2020-01-24 18:43 | PDOC ---
Documentation entered by Boy Cesar SCRIBE, acting as scribe for Harriet Philip MD. Harriet Philip MD: This documentation has been prepared by the Tali blanca Xhesika, SCRIBE, under my direction and personally reviewed by me in its entirety. I confirm that the documentation accurately reflects all work, treatment, procedures, and medical decision making performed by me. Attending Attestation - Resident Resident Name: RishiAnselmo jovel - ED Attending Attestation I have performed the following: I have examined & evaluated the patient, The case was reviewed & discussed with the resident, I agree w/resident's findings & plan - HPI HPI: 01/24/20 18:19 The patient is a 59y/o M with a pmh of afib, peripheral artery disease, congestive heart failure, chronic leg wounds who presents to the ED BIBA from [facility] for hemoglobin of 6.4. Pt had lab work done today and was found to have hemoglobin of 6.4. Denies fever, chills, chest pain, SOB, palpitation, dizziness, weakness, N, V, D, abdominal pain, bladder and bowel problems, leg swelling, No sick contacts or travel. No new changes in medications. Allergies: Lactose. Egg derived. [place] and derivatives Past Medical History: See HPI Social history: Lives at [facility] Meds: as documented in EMR PMD: Dr. Valerio - Physicial Exam PE: 01/24/20 18:24 Agree with the resident's HPI and PE as documented in the electronic medical record. NAD, well appearing, EOMI, PERRL, nl conjunctiva, anicteric; neck supple. lungs clear, RRR, abdomen soft nontender. no rebound, guarding. Back nontender. WOLFF x4, no focal neuro deficits. normal color for ethnicity, WWP. +chronic BLE wounds, serosanguinous drainage. 01/24/20 20:38 - Medical Decision Making 01/24/20 20:38 Vital Signs Temp Pulse Resp BP Pulse Ox 97.5 F L 73 16 117/65 100 01/24/20 17:35 01/24/20 17:35 01/24/20 17:35 01/24/20 17:35 01/24/20 17:35 01/24/20 20:39 Vital signs reviewed within normal limits, no fevers, hemodynamically appropriate No complaints currently Laboratory results obtained, evidence of acute on chronic anemia. Hemoglobin 6.9 hematocrit is 22.5. Coags are normal. UA is clear. Negative for blood on stool occult test This is most likely acute on chronic anemia, will transfuse 2 units of PRBC slowly as well as with Lasix 40 mg IV push in between. Patient does have history of CHF with EF 30 to 35% as well as diastolic dysfunction so will be very cautious with blood product administration Admission. Heart Score/ECG Review #1 ECG reviewed & interpreted by me at: 17:50 General ECG Interpretation: Sinus Rhythm, Normal Rate 01/24/20 18:39 EKG normal sinus rhythm 68 bpm, wide QRS, RBBB, 1st degree AV heart block, intermittent PVC, ST and T wave segments and morphology normal. Nonspecific T wave abnormalities Discharge - Discharge Information Problems reviewed: Yes Clinical Impression/Diagnosis: Anemia Qualifiers: Anemia type: unspecified type Qualified Code(s): D64.9 - Anemia, unspecified Condition: Guarded - Admission Yes - Follow up/Referral Referrals: Mike Valerio MD [Primary Care Provider] - - Patient Discharge Instructions - Post Discharge Activity
[2020-01-24 19:31] LABS: BASO % 0.9 % (0-2.0); EOS % 0.9 % (0-4.5); HEMATOCRIT 22.5 % (35.4-49); LYMPH % 9.3 % (8-40); MCHC 30.5 g/dl (32.0-35.9); MEAN CELL VOLUME 78.8 fl (80-96); MEAN PLT VOLUME 9.1 fl (7.5-11.1); NEUT % 81.9 % (42.8-82.8); PLATELET COUNT 235 K/MM3 (134-434); RBC 2.85 M/mm3 (4.00-5.60); RDW 17.9 % (11.9-15.9); WHITE BLOOD COUNT 4.8 K/mm3 (4.0-10.0)
[2020-01-24 19:38] LABS: HEMOGLOBIN 6.9 GM/dL (11.7-16.9)
[2020-01-24 19:40] LABS: INR 1.3 (0.83-1.09); PROTHROMBIN TIME (PATIENT) 15.4 SEC (9.7-13.0)
[2020-01-24 19:43] LABS: ACTIVATED PTT 28.5 SECONDS (25.2-36.5)
[2020-01-24 20:02] LABS: URINE APPEARANCE CLEAR; URINE BILIRUBIN NEGATIVE (NEGATIVE); URINE COLOR YELLOW; URINE GLUCOSE (UA) NEGATIVE (NEGATIVE); URINE KETONE NEGATIVE (NEGATIVE); URINE LEUK ESTERASE NEGATIVE (NEGATIVE); URINE NITRITE NEGATIVE (NEGATIVE); URINE PROTEIN NEGATIVE (NEGATIVE); URINE UROBILINOGEN 0.2 mg/dL (0.2-1.0)
[2020-01-24] MEDS ORDERED: FUROSEMIDE 40 MG/4 ML INJECTABLE VIAL IVPUSH ONE (20:03)
[2020-01-24 20:40] LABS: ALBUMIN 2.2 g/dl (3.4-5.0); BILIRUBIN,TOTAL 0.2 mg/dL (0.2-1); BLOOD UREA NITROGEN 76.5 mg/dL (7-18); CALCIUM 8.3 mg/dL (8.5-10.1); CREATININE 2.1 mg/dL (0.55-1.3); POTASSIUM 4.9 mmol/L (3.5-5.1)
--- OUTSIDE RECORDS SUMMARY | 2020-01-24 21:56 | XMS ---
:1960 Author Organization [facility] Support Name Relationship Address Phone UE Unavailable Unavailable Unavailable SEVERIANO 5 Unavailable [phone] UE Unavailable Unavailable Unavailable SEVERIANO MOTHER [address] [phone] [place] [address] Care Team Providers Name Role Phone [facility] Unavailable Unavailable MD Dorie Unavailable Unavailable MD Dorie Unavailable Unavailable MD Dorie Unavailable Unavailable MD Dorie Unavailable Unavailable Other Unavailable Unavailable MD Yady Unavailable Unavailable Re-disclosure Warning The records that [...] is protected by Article 27-F of the [facility] Public Health law. If you continue you may haveaccess to information: Regarding HIV / AIDS; Provided by facilities licensed or operated by the [facility] Office of Mental Health; or Provided by the [facility] Office for People With Developmental Disabilities. If such information is present, then the following [facility] mandated warning applies: This information has been [...] law may result in a fine or half-way sentence or both. A general authorization for the release of medical or other information is NOT sufficient authorization for further disclosure. Encounters Encounter Providers Location Date Indications Data Source(s ) Outpatient Attender: CNR9 [facility] 10/23/2019 [facility] 12:35:44 PM [facility]) Patient admitted. Outpatient Attender: R9 [facility] 10/23/2019 12:34:23 PM [facility] ([facility]) Patient admitted. Outpatient Attender: [facility] 10/23/2019 12:31:07 PM [facility] ([facility]) Patient admitted. Inpatient Attender: Doctor ICU-5J 07/04/2019 D64.9 Severe [facility] - New OtherAttender: Pete 04:12:00 AM EDT anemia Ada Oshea MDAttender: MD Yoon - 07/15/2019 [facility] GiampietroAdmitter: 06:03:00 PM EDT Car Conteh D64.9 Severe anemia Patient discharged. Medications Medication Brand Start Product Dose Route Administrative Pharmacy [facility] Indications Reaction Description Data Name Date Form Instructions Instructions Source(s) pantoprazole pantoprazole 07/11/2019 1 [id number] active pantoprazole 40 mg oral delayed release tablet; 1 tab(s) orally once a day Ordered: 11-Jul-2019 Start: 11-Jul-2019 [facility] 40 MG Delayed 40 mg oral 12:28:33 PM {tab(s)} Quantity: 0 [place] [facility], [facility] Release Oral delayed EDT Refills: 0 System Tablet release pantoprazole tablet 40 mg oral delayed release tablet Insurance Providers Payer name Policy type Policy ID Covered Covered republican's Policy P natalio / Coverage republican ID relationship to [facility] Inf ormation type rooney MEDICAID [id number] SP [id number] MEDICARE [id number] SP [id number] 63 3 Medicaid Medicaid [id number] 1 [id number] Medicare Part Medicare [id number] 1 [id number] A 3 Medicare Part Medicare [id number] 1 [id number] B Outpatient [address] [place] [address] [id number] SP [id number] SOLUTIONS 8 STEVO MEDICARE [id number] [place] [id number] [facility] [id number] SOLUTIONS 7 Problems, Conditions, and Diagnoses Code Display Name Description Problem Type Effective Data Dates Source(s) D64.9 Severe anemia Severe anemia 06332-3 07/04/2019 [facility] 12:00:00 AM [facility] System EDT D64.9 Severe anemia Severe anemia 02260-0 [facility] EDT E87.5 Hyperkalemia Hyperkalemia 10407-0 07/04/2019 [facility] 04:40:17 AM [facility] System EDT R53.1 Weakness Weakness Diagnosis 07/04/2019 [facility] - New 04:12:00 AM [facility] I48.91 Unspecified atrial Atrial fibrillation Diagnosis 07/04/19 [facility] - New fibrillation 04:12:00 AM [facility] I73.9 Peripheral vascular Peripheral vascular Diagnosis 020 [facility] - New disease, unspecified disease 04:12:00 AM [facility] Z91.19 Patient's Noncompliance of Diagnosis 07/04/2019 [facility] - Ne w noncompliance with patient with other 04:12:00 AM [place] other medical medical treatment EDT Hosp ital treatment and and regimen regimen I87.8 Other specified Other specified Diagnosis 07/04/2019 [facility] - New disorders of veins disorders of veins 04:12:00 AM [facility] R91.8 Other nonspecific Nonspecific abnormal Diagnosis 07/04/19 [facility] - New abnormal finding of findings on 04:12:00 AM [facility] lung field radiological and EDT Hospital other examination of lung field R19.5 Other fecal Other fecal Diagnosis 07/04/2019 MHS - New abnormalities abnormalities 04:12:00 AM [facility] F32.9 Major depressive Major depressive Diagnosis 07/04/2019 MH S - New disorder, single disorder with single 04:12:00 AM [place] episode, unspecified episode EDT Hosp ital I89.0 Lymphedema, not Lymphedema, not Diagnosis 07/04/2019 MHS - New elsewhere classified elsewhere classified 04:12 :00 AM [facility] Z79.01 FPC (current) FPC current Diagnosis 0 MHS - New use of use of anticoagulant 04:12:00 AM [facility] anticoagulants therapy [facility] E86.1 Hypovolemia Hypovolemia Diagnosis 07/04/2019 S - New 04:12:00 AM [facility] I95.9 Hypotension, Hypotension Diagnosis 07/04/2019 S - New unspecified 04:12:00 AM [facility] I13.0 Hypertensive heart Hypertensive heart Diagnosis 0 MHS - New and chronic kidney and kidney disease 04:12:00 AM [place] disease with heart with heart failure [facility] failure and stage 1 and chronic kidney through stage 4 disease chronic kidney disease, or unspecified chronic kidney disease E87.5 Hyperkalemia Hyperkalemia Diagnosis 07/04/2019 S - New 04:12:00 AM [facility] I50.9 Heart failure, Heart failure Diagnosis 07/04/2019 S - N ew unspecified 04:12:00 AM [facility] M10.9 Gout, unspecified Gout Diagnosis 07/04/2019 S - N ew 04:12:00 AM [facility] K92.2 Gastrointestinal Gastrointestinal Diagnosis 07/04/2019 S - New hemorrhage, hemorrhage 04:12:00 AM [facility] D64.9 Severe anemia D64.9 Severe anemia Diagnosis 020 MHS - New 04:12:00 AM [facility] 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 020 S - New renal cysts renal cysts 04:12:00 AM [facility] N18.9 Chronic kidney Chronic kidney Diagnosis 07/04/2019 S - New disease, unspecified disease 04:12:00 AM [facility] R00.1 Bradycardia, Bradycardia Diagnosis 07/04/2019 S - New unspecified 04:12:00 AM [facility] D64.9 Anemia, unspecified Severe anemia Diagnosis 07/04/2019 S - New 04:12:00 AM [facility] D63.1 Anemia in chronic Anemia in chronic Diagnosis 07/04/2019 S - New kidney disease kidney disease 04:12:00 AM [facility] R41.82 Altered mental Altered mental Diagnosis 07/04/2019 S - New status, unspecified status 04:12:00 AM [facility] D62 Acute Anemia due to acute Diagnosis 07/04/2019 S - New posthemorrhagic blood loss 04:12:00 AM [facility] N17.9 Acute kidney Acute renal failure Diagnosis 07/04/2019 S - New failure, unspecified 04:12:00 AM [facility] N30.00 Acute cystitis Acute cystitis Diagnosis 07/04/2019 S - New without hematuria without hematuria 04:12:00 AM [facility] E87.2 Acidosis Acidosis Diagnosis 07/04/2019 S - New 04:12:00 AM [facility] R79.1 Abnormal coagulation Abnormal blood Diagnosis 07/04/2019 S - New profile coagulation profile 04:12:00 AM [facility] E87.5 Hyperkalemia E87.5 Hyperkalemia Diagnosis 0 S - New 04:12:00 AM [facility] BIBA SEPSIS BIBA SEPSIS Diagnosis 07/04/2019 S - New SENIORCARE SENIORCARE 01:35:00 AM [facility] 50806C8 Percutaneous Percutaneous Diagnosis 07/04/2019 S - New transfusion of transfusion of 12:00:00 AM [facility] nonautologous red nonautologous red [facility] blood cells into blood cells into peripheral vein peripheral vein Surgeries/Procedures Procedure Description Date Indications Data Source(s) Comprehensive Metabolic Panel 07/10/2019 [facility] 06:00:00 AM System EDT - 07/10/2019 06:20:00 AM EDT CBC w/Auto Differential- 07/10/2019 [facility] NR/SECC Only 06:00:00 AM System EDT - 07/10/2019 06:20:00 AM EDT Standard chest X-ray 07/04/2019 [facility] (procedure) 03:49:00 PM System EDT - 07/04/2019 03:49:00 PM EDT US Renal Rad Image 07/04/2019 [facility] 08:25:00 AM System EDT - 07/04/2019 08:25:00 AM EDT Electrocardiographic 07/04/2019 [facility] procedure (procedure) 07:30:00 AM System EDT - 07/04/2019 04:35:00 AM EDT Basic Metabolic Panel 07/04/2019 [facility] 06:47:00 AM System EDT - 07/04/2019 11:12:00 AM EDT Echocardiography, real-time 07/04/2019 [facility] with image documentation with 04:31:00 AM System M-mode recording, complete EDT - (procedure) 07/04/2019 04:35:00 AM EDT Basic Metabolic Panel 07/04/2019 [facility] 02:45:18 AM System EDT - 07/04/2019 03:05:00 AM EDT XR Chest Single AP view XR 07/04/2019 [facility] Chest Single AP view 02:22:00 AM System EDT - 07/04/2019 02:22:00 AM EDT Type + Crossmatch 07/04/2019 [facility] Efizity 02:21:30 AM System EDT - 07/04/2019 02:22:48 AM EDT Electrocardiographic 07/04/2019 [facility] procedure (procedure) 01:58:53 AM System EDT - 07/04/2019 02:18:00 AM EDT Results ID Date Data Source [id number] 12/09/2019 01:40:00 PM EDT [facility] Name Value Range Interpretation Description Data Sup porting Code Source(s) Document(s ) SARS [facility] coronavirus 2 RNA This lab was ordered by Ian Callahan and reported by [facility]. ID Date Data Source [id number] 12/04/2019 10:26:00 AM EDT [facility] Name Value Range Interpretation Description Data Sup porting Code Source(s) Document(s ) SARS [facility] coronavirus 2 RNA This lab was ordered by Ian Callahan and reported by [facility]. ID Date Data Source [id number] 11/26/2019 04:19:00 PM EDT [facility] Name Value Range Interpretation Description Data Sup porting Code Source(s) Document(s ) SARS [facility] coronavirus 2 RNA This lab was ordered by Ian Callahan and reported by [facility]. ID Date Data Source [id number] 09/10/2019 12:00:00 AM EDT [facility] Name Value Range Interpretation Code Description Data [place] rce(s) Supporting Document(s ) 2019-nCoV [facility] RNA XXX JUANITA+probe- Imp This lab was ordered by [facility] ANJUM GREER and reported by [facility]. ID Date Data Source [id number] 08/28/2019 02:30:00 PM EDT [facility] Name Value Range Interpretation Description Data Sup porting Code Source(s) Document(s ) 2019 Novel [facility] Coronavirus RNA Interpretation Unspecified Specimen Qualitative JUANITA Probe Detection This lab was ordered by Anjum pandey and reported by [employer]. ID Date Data Source [id number] 08/13/2019 08:52:00 AM EDT [facility] Name Value Range Interpretation Description Data Sup porting Code Source(s) Document(s ) SARS [facility] coronavirus 2 RNA This lab was ordered by Ian Callahan and reported by [facility]. ID Date Data Source [id number] 07/15/2019 07:06:11 PM EDT [facility] Name Value Range Interpretation Description Data Sup porting Code Source(s) Document(s ) Bacteria Micro Result Normal (applies Culture [facility] identified in Result to non-numeric Bacteria Blood Health Blood by Reporting|Tel results) System Aerobe culture ephone|ROSELINE LUX| 07/06/2019 at 11:24 AMCalled to:ROSELINE LUXTech Name:ROMANA Ortiz by:ROSELINE LUX 07/06/2019 / 11:23 AM [facility] AEROBIC [place] Count [facility] BOTTLE [facility] System XXX Enterococcus [...] Health y] System ID Date Data Source [id number] 07/15/2019 07:06:11 PM EDT [facility] Name Value Range Interpretation Description Data Sup porting Code Source(s) Document(s ) Bacteria NO GROWTH Culture [facility] identified in Bacteria Blood Health Syst em Blood by Aerobe culture ID Date Data Source [id number] 07/15/2019 07:06:11 PM EDT [facility] Name Value Range Interpretation Description Data Sup porting Code Source(s) Document(s ) XXX Enterobacter Organism [facility] microorganism aerogenes Health serotype System [Identifier] in Isolate by Agglutination Amikacin <=16 - Amikacin [facility] [Susceptibili Sensitive Health ty] System [facility] > 10,000 - < [place] Count [facility] 50,000 Health System Deprecated Micro [...] System [Susceptibili ty] ID Date Data Source [id number] 07/15/2019 07:06:11 PM EDT [facility] Name Value Range Interpretation Description Data Sup porting Code Source(s) Document(s ) Appearance of HAZY Normal (applies Urine [facility] Urine to non-numeric Appearance Health results) System Color Yellow Normal (applies Color [facility] to non-numeric Health results) System Specific gravity 1.014 Normal (applies Urine Specific [facility] of Urine to non-numeric [facility] results) System Glucose,UA NEG Normal (applies [...] Health System results) ID Date Data Source [id number] 07/15/2019 07:06:11 PM EDT [facility] alth [...] Health System results) ID Date Data Source [id number] 07/15/2019 07:06:11 PM EDT [facility] Name Value Range Interpretation Description Data Sup porting Code Source(s) Document(s ) Erythrocytes 1.40 Below low normal RBC Count [facility] [#/volume] in {10^6_uL Health System Blood by } Automated count Hemoglobin 3.8 Below lower panic Hemoglobin [facility] [Mass/volume] {gm/dL} limits Health System in Blood Result Reporting|Telephone|jill andujar rn/rb| 07/04/2019 at 2:20 AMCalled to:jill andujar rn/Pam Name:Henrywallacemarilee by:ita andujar rn/rb 07/04/2019 / 2:20 AM Leukocytes 10.0 {10^3_uL} Normal (applies to WBC Count [facility] [#/volume] in non-numeric System Unspecified results) specimen by Automated count Erythrocyte mean 98.6 fl Normal (applies to MCV [facility] corpuscular volume non-numeric System [Entitic volume] by results) Automated count Hematocrit [Volume 13.8 % Below lower panic Hematocrit [facility] Fraction] of Blood limits System Result Reporting|Telephone|jill andujar rn/rb| 07/04/2019 at 2:20 AMCalled to:jill andujar rn/Pam Name:Ramonavenkat by:ita andujar rn/rb 07/04/2019 / 2:20 AM [...] [facility] [Entitic volume] in (applies to [facility] Blood by Automated non-numeric count results) Nucleated 0.5 {/100_WBC} Above high NRBC % [facility] erythrocytes normal Health System [#/volume] in Body fluid Neutrophils/100 76.6 % Above high Neutrophil % [facility] leukocytes in Blood normal [facility] tem by Automated count Neutrophils 7.6 {10^3_uL} Normal Neutrophil # [facility] [#/volume] in Body (applies to [facility] stem fluid non-numeric results) Lymphocytes 13.9 % Below low Lymphocyte % [facility] [#/volume] in Blood normal [facility] tem by Automated count Monocytes [#/volume] 0.8 {10^3_uL} Normal Monocyte # [facility] in Blood by Manual (applies to [facility] stem count non-numeric results) Monocytes/100 8.4 % Normal Monocyte % [facility] leukocytes in Blood (applies to [facility] non-numeric results) Lymphocyte percent 1.4 {10^3_uL} Normal Lymphocyte # [facility] differential count (applies to [facility] stem (procedure) non-numeric results) Eosinophils/100 0.5 % Normal Eosinophil % [facility] leukocytes in (applies to [facility] Unspecified specimen non-numeric results) Eosinophils 0.05 {10^3_uL} Normal Eosinophil # [facility] [#/volume] in Blood (applies to [facility] non-numeric results) Basophils/100 0.3 % Normal Basophil % [facility] leukocytes in (applies to [facility] Unspecified specimen non-numeric by Manual count results) Basophils [#/volume] 0.03 {10^3_uL} Normal Basophil # [facility] in Blood by (applies to [facility] System Automated count non-numeric results) ImmatureGranulocytes 0.03 {10^3_uL} Normal Immature [facility] # (applies to Granulocytes # [facility] System non-numeric results) ImmatureGranulocytes 0.3 % Normal Immature [facility] % (applies to Granulocytes % [facility] System non-numeric results) ID Date Data Source [id number] 07/15/2019 07:06:11 PM EDT [facility] Name Value Range Interpretation Description Data Sup porting Code Source(s) Document(s ) TroponinIQuanti Cancelled Troponin I [facility] tative possible Quantitative Health contaminated System specimen. Cancelled. S/Antonino andujar RN. Re-draw SpecimenRejecti CON Specimen [facility] onReason Rejection Health Reason System ID Date Data Source [id number] 07/15/2019 07:06:11 PM EDT [facility] He [facility] System Name Value Range Interpretation Description Data Sup porting Code Source(s) Document(s ) Sodium Cancelled Sodium, [facility] [Moles/volume] possible Serum Health in Serum or contaminated System Plasma specimen. Cancelled. S/T jill andujar RN. Re-draw Potassium Cancelled Potassium, [facility] [Mass/volume] in possible Serum Health Serum or Plasma contaminated System specimen. Cancelled. S/T jill andjuar RN. Re-draw TotalProtein Cancelled Total [facility] possible Protein Health contaminated System specimen. Cancelled. S/Antonino andujar RN. Re-draw Chloride Cancelled Chloride, [facility] [Moles/volume] possible Serum Health in Serum or contaminated System Plasma specimen. Cancelled. S/T jill andujar RN. Re-draw Carbon dioxide, Cancelled CO2, [...] specimen. Cancelled. S/T jill andujar RN. Re-draw Glucose Cancelled Glucose, [facility] [Mass/volume] in possible Serum Health Serum or Plasma contaminated System specimen. Cancelled. S/Antonino andujar RN. Re-draw Alkaline Cancelled Alkaline [facility] [...] or Cancelled. Plasma by With S/T jill Romo-5'-P melissa DUKES. Re-draw I.Phosphorus Cancelled I. [facility] [...] jill andujar RN. Re-draw Alanine Cancelled Alanine [facility] aminotransferase possible Aminotransfe Health [Enzymatic contaminated rase, [...] Health Reason System ID Date Data Source [id number] 07/15/2019 07:06:11 PM EDT [facility] Name Value Range Interpretation Description Data Source(s ) Supporting Code Document(s ) LacticAc 4.6 Above upper panic Lactic Acid [facility] idWholeB mmol/L limits Whole Blood Health System lood*NEW *[place] ONLY* ONLY* Result Reporting|Telephone|Dr. Dorie MURPHY/ rb| 07/04/2019 at 2:15 AMCalled to:Dr. Dorie MURPHY/rbTech Name:Milagro by:Dr. Dorie Loving/idalia 07/04/2019 / 2:15 AM ID Date Data Source [id number] 07/15/2019 07:06:11 PM EDT [facility] [...] RN/rb| 07/04/2019 at 3:17 AMCalled to:bryce Gonzalez RN/rbChristine Name:Rose marilee by:bryce Gonzalez RN/rb 07/04/2019 / 3:17 AM Erythrocytes 1.40 {10^6_uL} Below low RBC Count [facility] H ealth [#/volume] in Blood normal System by Automated count Hematocrit [Volume 13.9 % Below lower Hematocrit [facility] Health Fraction] of Blood panic limits System Result Reporting|Telephone|bryce camargo RN/rb| 07/04/2019 at 3:17 AMCalled to:bryce Gonzalez RN/rbTech Name:Rose marilee by:bryce Gonzalez RN/rb 07/04/2019 / 3:17 AM Erythrocyte mean 99.3 [...] System non-numeric results) ID Date Data Source [id number] 07/15/2019 07:06:11 PM EDT [facility] System Name Value Range Interpretation [...] required for diagnosis. ID Date Data Source [id number] 07/15/2019 07:06:11 PM EDT [facility] System Name Value Range Interpretation Description Data Sup porting Code Source(s) Document(s ) Sodium 138 Normal (applies Sodium, Serum [facility] [Moles/volume mmol/L to non-numeric Health Syst em ] in Serum or results) Plasma Potassium 8.4 Above upper panic Potassium, [facility] [Mass/volume] mmol/L limits Serum Health System in Serum or Plasma Result Reporting|Telephone|Jill Andujar RN/IDALIA| 07/04/2019 at 3:54 AMCalled to:Jill Andujar RN/IDALIATech Name:Milagro by:Ita Andujar RN/IDALIA 07/04/2019 / 3:53 AM [...] Alkaline [facility] isoenzymes [Enzymatic normal Phosphatase, Healt System activity/volume] in Serum Serum or Plasma by Heat stability DirectBilirubin 0.2 mg/dl Normal Direct Bilirubin [facility] (applies to Health System non-numeric results) Albumin [Mass/volume] 2.8 {gm/dl} Below low Albumin, Serum M [facility] in Serum or Plasma normal Health Syst em Aspartate 19 {IU/L} Normal Aspartate [facility] aminotransferase (applies to Transaminase, [facility] System [Enzymatic non-numeric Serum activity/volume] in results) Serum or Plasma by With P-5'-P I.Phosphorus 6.5 mg/dl Above high I. Phosphorus [facility] normal Health System Alanine 14 {IU/L} Normal Alanine [facility] aminotransferase (applies to Aminotransferase, [facility] System [Enzymatic non-numeric Serum activity/volume] in results) [...] 5.2 mg/dl Normal (applies to Uric Acid, [facility] in Serum or Plasma non-numeric Serum System results) Anion gap in Serum or 13.40 mmol/L Normal (applies to Anio n Gap [facility] Health Plasma non-numeric System results) ID Date Data Source [id number] 07/15/2019 07:06:11 PM EDT [facility] He alth [...] Health results) System ID Date Data Source [id number] 07/15/2019 07:06:11 PM ED[facility] Name Value Range Interpretation Description Data Sup porting Code Source(s) Document(s ) INR in Blood by 3.03 Above high normal INR Result [facility] Coagulation {Ratio} Health System assay Normal = 0.7-1.1Therapeutic = 2.0-3.0Mec hanical Heart = 3.0-4.5 Prothrombintime(PT) 35.60 {seconds} Above high Prothrombin t stevo [facility] normal (PT) Health System ID Date Data Source [id number] 07/15/2019 07:06:11 PM EDT [facility] Name Value Range Interpretation Code Description Data [facility] rce(s) Supporting Document(s ) RH. Rh Positive Normal (applies to RH. [facility] non-numeric Health System results) Type. B Normal (applies to Type. [facility] non-numeric Health System results) ID Date Data Source [id number] 07/15/2019 07:06:11 PM EDT [facility] Name Value Range Interpretation Description Data Sup porting Code Source(s) Document(s ) pH 7.286 Below low normal pH [facility] {[facility]_units} [facility] System Carbon dioxide 29.0 Below low normal pCO2, [facility] [Partial {mm_Hg} Arterial Health pressure] in System Arterial blood BaseExcess. -12.8 Below low normal Base Excess. [facility] mmol/L Health System Oxygen 156.0 Above high pO2, [facility]terial [facility] [Partial {mm_Hg} normal Health pressure] in System Arterial blood Bicarbonate 13.8 mmol/L Below low normal HCO3 [facility] e [Moles/volume] Health in Venous System blood TCO2 Cancelled TCO2 [facility] System Sodium,WB 142 mmol/L Normal (applies Sodium, WB [facility] to non-numeric Health results) System [id number] > 100.0 Above high O2 Saturation [facility] normal [facility] System Chloride,WB 117 mmol/L Above high Chloride, [facility] [place] [facility] normal Health System Potassium,WB 7.1 mmol/L Above upper Potassium, WB [facility] panic limits Health System Result Reporting|Telephone|bryce camargo RN/rb| 07/04/2019 at 5:10 AMCalled to:bryce Gonzalez RN/Pam Name:Rose hunt by:bryce Gonzalez RN/rb 07/04/2019 / 5:10 AM IonizedCalcium 1.14 mmol/L Below low Ionized Calcium [facility] normal System Glucose,WB 74 mg/dL Normal Glucose, WB [facility] Health (applies to System non-numeric results) Lactate [Mass/volume] 3.9 mmol/L Above upper Lactate [facility] in Serum or Plasma panic limits System Result Reporting|Telephone|bryce camargo RN/rb| 07/04/2019 at 5:10 AMCalled to:bryce Gonzalez RN/Pam Name:Rose hunt by:bryce Gonzalez RN/idalia 07/04/2019 / 5:10 AM ID Date Data Source [id number] 07/15/2019 07:06:11 PM EDT [facility] Fredi alth System Name Value Range Interpretation Description Data Sup porting Code Source(s) Document(s ) Source: Nasopharyngeal Normal (applies Source: [facility] to non-numeric Health results) System LDTAHvY3V Not DetectedTest Normal (applies SARS CoV 2 [facility] NA,RTPCR Performed by to non-numeric RNA, RT PCR Health [facility]ACOR results) System Laboratory Symptom Yes Normal (applies Patient [facility] to non-numeric Symptomatic? Health results) System ID Date Data Source [id number] 07/15/2019 07:06:11 PM EDT [facility] alth System Name Value Range Interpretation Description [...] target amplification method ID Date Data Source [id number] 07/15/2019 07:06:11 PM EDT [facility] System Name Value Range Interpretation [...] is mandeep mmended. ID Date Data Source [id number] 07/15/2019 07:06:11 PM EDT [facility] System Name Value Range Interpretation Description Data Source(s ) Supporting Code Document(s ) UreaNitr 510.0 Normal (applies to Urea Nitrogen [facility] ogenSpot mg/dl non-numeric Spot-Urine Health System -Urine results) ID Date Data Source [id number] 07/15/2019 07:06:11 PM EDT [facility] System Name Value Range Interpretation [...] System rine results) ID Date Data Source [id number] 07/15/2019 07:06:11 PM EDT [facility] System Name Value Range Interpretation Description Data Sup porting Code Source(s) Document(s ) Sodium 139 Normal (applies Sodium, Serum [facility] [Moles/volume mmol/L to non-numeric Health Syst em ] in Serum or results) Plasma Potassium 7.6 Above upper panic Potassium, [facility] [Mass/volume] mmol/L limits Serum Health System in Serum or Plasma Result Reporting|Telephone|Cynthia marshall| 07/04/2019 at 7:32 AMCalled to:Cynthia marshallTech Name:Doris ck by:Cynthia marshall 07/04/2019 / 7:32 AM Chloride [Moles/volume] 112 [...] Alkaline [facility] isoenzymes [Enzymatic [facility] activity/volume] in Serum Serum or [...] urine test abnormalities ID Date Data Source [id number] 07/15/2019 07:06:11 PM EDT Jono He [facility] System Name Value Range Interpretation Description Data Sup porting Code Source(s) Document(s ) Ferritin 79.8 Normal (applies Ferritin, [facility] [Mass/volume ng/ml to non-numeric Serum - [facility] tem ] in Serum results) Ada Only or Plasma ID Date Data Source [id number] 07/15/2019 07:06:11 PM EDT [facility] alth System Name Value Range Interpretation Description Data Source(s ) Supporting Code Document(s ) LacticAc 3.3 Above upper panic Lactic Acid [facility] idWholeB mmol/L limits Whole Blood Health System lood*NEW *NEW ADA ADA ONLY* ONLY* Result Reporting|Telephone|Dr.Liu MURPHY/rb| 07/04/2019 at 6:47 AMCalled to:Dr.Liu MURPHY/Pam Name:Milagro by:Dr.Liu MURPHY/r b 07/04/2019 / 6:47 AMResult Reporting|Telephone|Dr.Liu MURPHY/rb| 020 at 6:48 AMCalled to:Dr.Liu MURPHY/Pam Name:Milagro by:Dr.Liu MURPHY/idalia 0 / 6:48 AM ID Date Data Source [id number] 07/15/2019 07:06:11 PM EDT [facility] alth System Name Value Range Interpretation Description Data Sup porting Code Source(s) Document(s ) Iron binding 218.00 Below low normal Total Iron [facility] e capacity Binding Health System [Mass/volume Capacity-(RO). ] in Serum or Plasma UNITS: mcg/dL (calc) Iron [Mass/volume] in 22.00 {mcg/dL} Below low Iron.. [facility] Serum or Plasma normal System %Saturation. 10.00 {%_(calc)} Below low % Saturation. [facility] normal System Test Performed at:[facility] - [facility] [place], [place] [address]GlqezdonCharles Michael M.D. ID Date Data Source [id number] 07/15/2019 07:06:11 PM EDT [facility] alth System Name Value Range Interpretation Description [...] Result Reporting|Telephone|| at 11:31 AMCalled to:DR.VISHNU King Name:LMCReadiain by: 07/04/2019 / 11:30 AM Hematocrit [Volume 16.5 % Below lower panic Hematocrit [facility] Fraction] of Blood limits System Result Reporting|Telephone|| at 11:31 AMCalled to:DR.VISHNU King Name:LMCReadiain by: 07/04/2019 / 11:30 AM Erythrocyte mean [...] Eosinophils/100 0.7 % Normal (applies Eosinophil % Archie janett [...] Sys tem results) ID Date Data Source [id number] 07/15/2019 07:06:11 PM EDT [facility] System Name Value Range Interpretation Description Data Sup porting Code Source(s) Document(s ) Sodium 140 Normal (applies Sodium, Serum [facility] [Moles/volume mmol/L to non-numeric Health Syst em ] in Serum or results) Plasma Potassium 6.2 Above upper panic Potassium, [facility] [Mass/volume] mmol/L limits Serum Health System in Serum or Plasma Result Reporting|Telephone|DENITA DOMINGO| 07/04/2019 at 12:40 PMCalled to:DENITA DOMINGOTech Name:SMReadback by:DENITA Cintron 07/04/2019 / 12:39 PM Chloride 117 [...] System non-numeric results) ID Date Data Source [id number] 07/15/2019 07:06:11 PM EDT [facility] System Name Value Range Interpretation Description Data Sup porting Code Source(s) Document(s ) Hepati Non Normal (applies Hepatitis B [facility] tisBCo ReactiveReference to non-numeric [facility] reAnti Range: Non results) Antibody, System body,T ReactiveTest Total otal Performed at:[employer], [place], [place] Arianne Michael M.D. NONREACTIVE = Anti-HBc [...] previous HBV infection. ID Date Data Source [id number] 07/15/2019 07:06:11 PM EDT [facility] Name Value Range Interpretation Description Data Sup porting Code Source(s) Document(s ) HepatitisBSurf DNRTest Normal (applies Hepatitis B [facility] aceAntigenNeut Performed to non-numeric [facility] at:[employer] results) Antigen Neut System [email or web address], [place], [place] Arianne Michael M.D. HepatitisBSurf Non Normal (applies Hepatitis B [facility] aceAntigen. ReactiveReferen to non-numeric [facility] ce Range: Non results) Antigen. System ReactiveTest Performed at:[facility], [place], [place] [address]KtldunzbCharles Michael M.D. ID Date Data Source [id number] 07/15/2019 07:06:11 PM EDT [facility] System Name Value Range Interpretation Description Data Source(s ) Supporting Code Document(s ) Hepatiti 9 Below low normal Hepatitis B [facility] sBSurfac {mIU/mL} [facility] eAntibod Antibody. y. Patient does not have immunity to hepati tis B virus.For additional information, please refer [email or web address](This link is being provided for informational/educational p urposes only).Test Performed at:[facility], [place], [place] [address]Dnciidrqdhruv Michael M.D. ID Date Data Source [id number] 07/15/2019 07:06:11 PM EDT [facility] System Name Value Range Interpretation Description Data Sup porting Code Source(s) Document(s ) Hemoglobin 6.3 Below lower panic Hemoglobin [facility] [Mass/volume] {gm/dL} limits Health System in Blood [...] by Automated count ID Date Data Source [id number] 07/15/2019 07:06:11 PM EDT [facility] alth [...] System Plasma results) ID Date Data Source [id number] 07/15/2019 07:06:11 PM EDT Jono [facility]ai alth [...] blood.Result Reporting|Rishi nelson|| 07/05/2019 at 7:41 AMCalled to:Tech Name:Hellen Cade by:/idalia 07/05/2019 / 7:40 AM Hematocrit [Volume 21.6 % Below lower panic Hematocrit [facility] Fraction] of Blood limits System Result Reporting|Telephone| | 07/05/2019 at 7:41 AMCalled to: Name:LBruelReadback by:/idalia 07/05/2019 / 7:40 AM Erythrocyte mean [...] Sys tem results) ID Date Data Source [id number] 07/15/2019 07:06:11 PM EDT [facility] System Name Value Range Interpretation Description Data Sup porting Code Source(s) Document(s ) Prothrombintim 21.00 Above high normal Prothrombin Archie janett e(PT) {seconds time (PT) Health System } INR in Blood 1.80 Above high normal INR Result [facility] by Coagulation {Ratio} Health System assay Normal = 0.7-1.1Therapeutic = 2.0-3.0Mec hanical Heart = 3.0-4.5 ID Date Data Source [id number] 07/15/2019 07:06:11 PM EDT [facility] System Name Value Range Interpretation Description Data Sup porting Code Source(s) Document(s ) Magnesium 1.5 Normal (applies Magnesium, [facility] [Mass/volume] {mEq/L} to non-numeric Serum Health Syst em in Serum or results) Plasma ID Date Data Source [id number] 07/15/2019 07:06:11 PM EDT [facility] alth [...] urine test abnormalities ID Date Data Source [id number] 07/15/2019 07:06:11 PM [facility] transfusion Name Value Range Interpretation Description Data Sup porting Code Source(s) Document(s ) Hemoglobin 7.6 Below lower panic Hemoglobin [facility] [Mass/volume] {gm/dL} limits Health System in Blood Result Reporting|Telephone|denita domingo| 07/05/2019 at 3:41 PMCalled to:denita domingoTech Name:smReadback by:denita cintron 07/05/2019 / 3:40 PM Hematocrit [Volume 24.7 % Below low normal Hematocrit [facility] Fraction] of Blood System Erythrocyte mean 93.2 fl Normal (applies to MCV [facility] corpuscular volume non-numeric System [Entitic volume] by results) Automated count ID Date Data Source [id number] 07/15/2019 07:06:11 PM EDT [facility] He alth [...] [facility] [Entitic volume] in (applies to [facility] Blood by Automated non-numeric count results) Nucleated 0.0 {/100_WBC} Normal NRBC % [facility] erythrocytes (applies to Health System [#/volume] in Body non-numeric fluid results) NRBC# 0.00 {10^3_uL} Normal NRBC # [facility] (applies to Health System non-numeric results) Neutrophils/100 70.2 % Normal Neutrophil % [facility] leukocytes in Blood (applies to [facility] by Automated count non-numeric results) Neutrophils 5.1 [...] System non-numeric results) ID Date Data Source [id number] 07/15/2019 07:06:11 PM EDT [facility] System Name Value Range Interpretation Description Data Sup porting Code Source(s) Document(s ) Magnesium 1.6 Normal (applies Magnesium, [facility] [Mass/volume] {mEq/L} to non-numeric Serum Health Syst em in Serum or results) Plasma ID Date Data Source [id number] 07/15/2019 07:06:11 PM EDT [facility]th [...] urine test abnormalities ID Date Data Source [id number] 07/15/2019 07:06:11 PM EDT [facility] System Name Value Range Interpretation Description Data Sup porting Code Source(s) Document(s ) Prothrombintim 14.60 Above high normal Prothrombin Archie janett e(PT) {seconds time (PT) Health System } INR in Blood 1.26 Above high normal INR Result [facility] by Coagulation {Ratio} Health System assay Normal = 0.7-1.1Therapeutic = 2.0-3.0Mec hanical Heart = 3.0-4.5 ID Date Data Source [id number] 07/15/2019 07:06:11 PM EDT [facility] [...] Health results) System ID Date Data Source [id number] 07/15/2019 07:06:11 PM EDT [facility] System Name Value Range Interpretation Description Data Sup porting Code Source(s) Document(s ) Magnesium 1.6 Normal (applies Magnesium, [facility] [Mass/volume] {mEq/L} to non-numeric Serum Health Syst em in Serum or results) Plasma ID Date Data Source [id number] 07/15/2019 07:06:11 PM EDT [facility] alth [...] urine test abnormalities ID Date Data Source [id number] 07/15/2019 07:06:11 PM EDT [facility] Name Value Range Interpretation Description Data Sup porting Code Source(s) Document(s ) Prothrombintim 14.40 Above high normal Prothrombin Archie janett e(PT) {seconds time (PT) Health System } INR in Blood 1.24 Above high normal INR Result [facility] re by Coagulation {Ratio} Health System assay Normal = 0.7-1.1Therapeutic = 2.0-3.0Mec hanical Heart = 3.0-4.5 ID Date Data Source [id number] 07/04/2019 05:20:00 PM EDT [facility] Name Value Range Interpretation Code Description Data [facility] rce(s) Supporting Document(s ) 2019-nCoV [facility] RNA XXX JUANITA+probe- Imp This lab was ordered by [address] [place] [id number] ([facility]) and reported by [employer]. ID Date Data Source [id number] 07/04/2019 03:49:00 PM EDT [facility] Chest radiographsJulius Rwfqgm18 years M aleCLINICAL INFORMATION: Post shiley insertion;TECHNIQUE: [...] Signed:Lise Subramanian, at 15:55 EDTTel ,Service support , [phone] Name Value Range Interpretation Code Description Data [facility] rce(s) Supporting Document(s ) ID Date Data Source [id number] 07/04/2019 08:25:00 AM EDT [facility] STUDY: RENAL ULTRASOUND - [facility] N FOR EXAM: Male, 59 years [...] at 9 :45 EDTTel , Servicesupport , [phone] OF ADDENDUMKidneys are echogenicbilaterallysuggestive of medica l renal disease.Electronically Signed:Jeanna, at 15 :58 EDTTel , Service support ,[phone] Name Value Range Interpretation Code Description Data [facility] rce(s) Supporting Document(s ) ID Date Data Source [id number] 07/04/2019 02:22:00 AM EDT [facility] HISTORY: Sepsis;EXAMINATION/TECHNIQUE:XR Chest 1 View:COMPARISON: None FINDINGS:LINES/DEVICES:None.LUNG S:Bilateral perihilar interstitial thickening with p atchy airspaceopacities in the left midand bilateral lower lung. Likely lefteffusion. No pneu mothorax.MEDIASTINUM: Nocardiomegaly.MUSCULOSKELETAL: No acute osseous finding.IMPRESSION:Bilateral perihilar andbasilar mild interstitial edema withp atchy opacities possibly representing interstitial and alveolaredema oratelectasis and pneu monia. Radiographic follow-uprecommended. at 0248 Reported and signed by: Margarita Ramirez MDEnvision Physicia nServicesSH DR MARGARITA RAMIREZ MS [phone] Signed:Margarita calero MD at 2:47 EDTTel , Service support , [phone] Name Value Range Interpretation Code Description Data [facility] rce(s) Supporting Document(s ) Procedure Vital Signs ID Date Data Source UNK Name Value Range Interpretation Code Description Data Source(s) Body temperature 97.5 [degF] 0 - 200 Normal (applies to 97.5 [degF ] [facility] non-numeric results) [facility] Body temperature 36.3 Lacie 0 - 99.9 Below low normal 36.3 Lacie [facility] Diastolic blood 61 mm[Hg] 0 - 999 Below low normal 61 mm[Hg] [facility] pressure [facility] System Systolic blood 103 mm[Hg] 0 - 999 Below low normal 103 mm[Hg] [facility] System Oxygen saturation 100 % 0 - 999 Normal (applies to 100 % [facility] in Arterial blood non-numeric results) [facility] System by Pulse oximetry Respiratory rate 18 0 - 999 Above high normal 18 M [facility] Heart rate 55 0 - 999 Below low normal 55 [facility] Body mass index 30.5 kg/m2 30.5 kg/m2 [facility] ([facility] [Ratio] Health Syst em Body weight 99.1 kg 99.1 kg [facility] Body surface area 2.1 m2 2.1 m2 [facility] ore Derived from Health Syste m formula Body height 180.34 cm 180.34 cm [facility] Patient Treatment Plan of Care Planned Activity Planned Date Details Description Data Source (s) pantoprazole 40 MG 07/11/2019 12:28:33 Mo [facility] Delayed Release Oral PM EDT System Tablet"
[2020-01-24] MEDS ORDERED: oxyCODONE HCL 5 MG TABLET PO PRN (22:01)
[2020-01-24] MEDS ORDERED: ACETAMINOPHEN 325 MG TABLET (FP) PO PRN (22:01)
--- NOTE | 2020-01-24 22:17 | HP ---
CHIEF COMPLAINT: found to have anemia on routine check PCP: Iman HISTORY OF PRESENT ILLNESS: 59 YO AA man with Mhx of HFrEF (30-35%), afib on AC, Gout, chronic leg wounds, primary adrenal insuf. and lymphedema, presented from [facility] after been found to have low Hg of 6.4. Pt denies dizziness, CP, palpitations, no LOC, no change in bowel habits, or urine habits, no change in color of stool. Pt recalls needing blood transfusion one year ago, but denies any bleeding. ER course was notable for: (1) FOBT negative (2) Hg 6.9, for which 2 unts of PRBC ordered (3) Recent Travel: denies PAST MEDICAL HISTORY: HFrEF (30-35%), afib on AC, Gout, chronic leg wounds, primary adrenal insuf. and lymphedema PAST SURGICAL HISTORY: denies Social History: Smoking: denies Alcohol:denies Drugs: denies Allergies Egg Derived Allergy (Unknown, Verified 01/24/20 17:47) [place] And Derivatives Allergy (Verified 01/24/20 17:47) lactose Adverse Reaction (Verified 01/24/20 17:47) HOME MEDICATIONS: Home Medications Medication Instructions Recorded Furosemide [Lasix] 40 mg PO DAILY 06/24/16 Allopurinol 300 mg PO DAILY 06/07/18 Folic Acid 1 mg PO DAILY 06/07/18 Aspirin [ASA -] 81 mg PO DAILY #30 tab.chew 06/23/18 Ferric Citrate [Auryxia] 210 mg PO BID 02/15/19 Carvedilol [Coreg -] 6.25 mg PO BID #60 tablet 02/22/19 Isosorbide Mononitrate [Imdur -] 30 mg PO DAILY #30 tab.sr.24h 02/22/19 hydrALAZINE HCL [Apresoline -] 10 mg PO BID #60 tablet 02/22/19 Sodium Zirconium Cyclosilicate 10 gm PO MOWEFR #25 powd.pack 02/24/19 [Lokelma] Tamsulosin HCl 0.4 mg PO HS #30 capsule 02/24/19 Allopurinol 300 mg PO DAILY 04/12/19 Ferrous Sulfate 325 mg PO DAILY 04/12/19 Multivitamin with Iron 1 tab PO DAILY 04/12/19 REVIEW OF SYSTEMS CONSTITUTIONAL: Absent: fever, chills, diaphoresis, generalized weakness, malaise, loss of appetite, weight change HEENT: Absent: rhinorrhea, nasal congestion, throat pain, throat swelling, difficulty swallowing, mouth swelling, ear pain, eye pain, visual changes CARDIOVASCULAR: Absent: chest pain, syncope, palpitations, irregular heart rate, lightheadedness, peripheral edema RESPIRATORY: Absent: cough, shortness of breath, dyspnea with exertion, orthopnea, wheezing, stridor, hemoptysis GASTROINTESTINAL: Absent: abdominal pain, abdominal distension, nausea, vomiting, diarrhea, constipation, melena, hematochezia GENITOURINARY: Absent: dysuria, frequency, urgency, hesitancy, hematuria, flank pain, genital pain MUSCULOSKELETAL: Absent: myalgia, arthralgia, joint swelling, back pain, neck pain SKIN: bilateral leg swelling, chronic leg wounds. HEMATOLOGIC/IMMUNOLOGIC: Absent: easy bleeding, easy bruising, lymphadenopathy, frequent infections ENDOCRINE: Absent: unexplained weight gain, unexplained weight loss, heat intolerance, cold intolerance NEUROLOGIC: Absent: headache, focal weakness or paresthesias, dizziness, unsteady gait, seizure, mental status changes, bladder or bowel incontinence PSYCHIATRIC: Absent: anxiety, depression, suicidal or homicidal ideation, hallucinations. PHYSICAL EXAMINATION Vital Signs - 24 hr 01/24/20 17:35 Temperature 97.5 F L Pulse Rate 73 Respiratory 16 Rate Blood Pressure 117/65 O2 Sat by Pulse 100 Oximetry (%) GENERAL: Awake, alert, and fully oriented, in no acute distress. HEENT: AT/NC, not pale/cyanosed or jaundiced, neck supple, PERRLA. LUNGS: Breath sounds equal, clear to auscultation bilaterally. No wheezes, and no crackles. No accessory muscle use. HEART: Regular rate and rhythm, normal S1 and S2 without murmur, rub or gallop. ABDOMEN: Obese, Soft, nontender, not distended, normoactive bowel sounds, no guarding, no rebound, no masses. No hepatomegaly or splenomegaly. MUSCULOSKELETAL: Normal range of motion at all joints. No bony deformities or tenderness. No CVA tenderness. UPPER EXTREMITIES: 2+ pulses, warm, well-perfused. No cyanosis. No clubbing. No peripheral edema. LOWER EXTREMITIES: 2+ pulses, warm, well-perfused. No calf tenderness. ++ edema. both legs wrapped with surgical dressing NEUROLOGICAL: Cranial nerves II-XII intact. Normal speech. Normal gait. PSYCHIATRIC: Cooperative. Good eye contact. Appropriate mood and affect. SKIN: Warm, dry, normal turgor, no rashes or lesions noted, normal capillary refill. Laboratory Results - last 24 hr 01/24/20 01/24/20 01/24/20 14:07 18:40 18:40 WBC 4.8 RBC 2.85 L Hgb 6.9 L* Hct 22.5 L MCV 78.8 L MCH 24.0 L D MCHC 30.5 L RDW 17.9 H Plt Count 235 D MPV 9.1 Absolute Neuts (auto) 3.9 Neutrophils % 81.9 Lymphocytes % 9.3 D Monocytes % 7.0 Eosinophils % 0.9 Basophils % 0.9 Nucleated RBC % 0 PT with INR 15.40 H INR 1.30 H PTT (Actin FS) 28.5 Sodium Potassium Chloride Carbon Dioxide Anion Gap BUN Creatinine Est GFR (CKD-EPI)AfAm Est GFR (CKD-EPI)NonAf Random Glucose Calcium Total Bilirubin AST ALT Alkaline Phosphatase Total Protein Albumin Urine Color Yellow Urine Appearance Clear Urine pH 5.0 Ur Specific [place] 1.010 Urine Protein Negative Urine Glucose (UA) Negative Urine Ketones Negative Urine Blood Negative Urine Nitrite Negative Urine Bilirubin Negative Urine Urobilinogen 0.2 Ur Leukocyte Esterase Negative Stool Occult Blood Blood Type Antibody Screen Crossmatch 01/24/20 01/24/20 01/24/20 18:40 19:30 19:54 WBC RBC Hgb Hct MCV MCH MCHC RDW Plt Count MPV Absolute Neuts (auto) Neutrophils % Lymphocytes % Monocytes % Eosinophils % Basophils % Nucleated RBC % PT with INR INR PTT (Actin FS) Sodium 143 Potassium 4.9 Chloride 114 H Carbon Dioxide 24 Anion Gap 5 L BUN 76.5 H Creatinine 2.1 H Est GFR (CKD-EPI)AfAm 38.22 Est GFR (CKD-EPI)NonAf 32.98 Random Glucose 103 Calcium 8.3 L Total Bilirubin 0.2 AST 13 L ALT 12 L Alkaline Phosphatase 109 Total Protein 8.0 Albumin 2.2 L Urine Color Urine Appearance Urine pH Ur Specific [place] Urine Protein Urine Glucose (UA) Urine Ketones Urine Blood Urine Nitrite Urine Bilirubin Urine Urobilinogen Ur Leukocyte Esterase Stool Occult Blood Negative Blood Type B POSITIVE Antibody Screen Negative Crossmatch See Detail ASSESSMENT/PLAN: 59 YO AA man with Mhx of HFrEF (30-35%), afib on AC, Gout, chronic leg wounds, primary adrenal insuf. and lymphedema, presented from [facility] after been found to have low Hg of 6.4 # Acute on chronic anemia -etiology: anemia of chronic disease vs blood loss vs URI -pt baseline 8-9 -FOBT negative, denies bleeding per rectum or from wounds. -2 pRBC ordered in ED -requested IRON studies, Reticulocyte count, Haptoglobin, LDH prior to transfusion -trend H&H keep Hg>7 -nephrology consult requested -local wound care -resumed meds per [place] HFrEF Afib Gout Chronic leg wounds Primary adrenal insufficiency DVT prophylaxis: pt on AC DNR/DNI Family Medical History Family History: Unable to Obtain (pt unable to remember) Visit type - Emergency Visit Emergency Visit: Yes ED Registration Date: 01/24/20 Care time: The patient presented to the Emergency Department on the above date and was hospitalized for further evaluation of their emergent condition. - New Patient This patient is new to me today: Yes Date on this admission: 01/24/20 - Critical Care Critical Care patient: No
[2020-01-25 03:40] VITALS: BMI 29.8
[2020-01-25 08:19] LABS: INR 1.29 (0.83-1.09); PROTHROMBIN TIME (PATIENT) 15.3 SEC (9.7-13.0)
[2020-01-25 08:27] LABS: HEMATOCRIT 20.5 % (35.4-49); MCH 24.2 pg (25.7-33.7); MCHC 31.2 g/dl (32.0-35.9); MEAN CELL VOLUME 77.6 fl (80-96); MEAN PLT VOLUME 8.7 fl (7.5-11.1); PLATELET COUNT 207 K/MM3 (134-434); RBC 2.64 M/mm3 (4.00-5.60); RDW 17.8 % (11.9-15.9)
[2020-01-25 08:40] LABS: ALBUMIN 1.9 g/dl (3.4-5.0); BILIRUBIN,TOTAL 0.6 mg/dL (0.2-1); BLOOD UREA NITROGEN 74.5 mg/dL (7-18); CALCIUM 7.6 mg/dL (8.5-10.1); MAGNESIUM 1.8 mg/dL (1.8-2.4); POTASSIUM 4.5 mmol/L (3.5-5.1); TOT PROT 7.5 g/dl (6.4-8.2)
[2020-01-25 08:46] LABS: HEMOGLOBIN 6.4 GM/dL (11.7-16.9)
[2020-01-25] MEDS ORDERED: PT OWN MED DRAWER 7, Y5N ONE ×2 (09:38→10:48)
--- NOTE | 2020-01-25 10:20 | PN ---
Progress Note, Physician Chief Complaint: Anemia History of Present Illness: 59 YO AA man with Mhx of HFrEF (30-35%), afib on AC, Gout, chronic leg wounds, primary adrenal insuf. and lymphedema, presented from [facility] after been found to have low Hg of 6.4. Pt denies dizziness, CP, palpitations, no LOC, no change in bowel habits, or urine habits, no change in color of stool. Pt recalls needing blood transfusion one year ago, but denies any bleeding. - Current Medication List Current Medications: Active Medications Acetaminophen (Tylenol -) 650 mg PO Q6H PRN PRN Reason: PAIN LEVEL 1-5 Apixaban (Eliquis -) 2.5 mg PO BID [facility] Colchicine (Colcrys) 0.6 mg PO DAILY [facility] Fludrocortisone Acetate (Florinef -) 0.1 mg PO DAILY [facility] Furosemide (Lasix -) 40 mg PO DAILY [facility] Oxycodone HCl (Roxicodone -) 5 mg PO Q6H PRN PRN Reason: PAIN LEVEL 6-10 Pantoprazole Sodium (Protonix -) 40 mg PO DAILY [facility] Prednisone (Deltasone -) 10 mg PO DAILY [facility] - Objective Vital Signs: Vital Signs Temperature 99.1 F 01/25/20 03:38 Pulse Rate 83 01/25/20 03:38 Respiratory Rate 20 01/25/20 03:38 Blood Pressure 150/77 01/25/20 03:38 O2 Sat by Pulse Oximetry (%) 95 01/25/20 03:38 Labs: CBC, BMP 01/25/20 07:30 01/25/20 07:30 INR, PTT INR 1.29 (0.83-1.09) H 01/25/20 07:30 Problem List - Problems (1) CKD (chronic kidney disease) Assessment/Plan: -Nephrology consult -Cr at baseline Problems reviewed: Yes Code(s): N18.9 - CHRONIC KIDNEY DISEASE, UNSPECIFIED (2) Severe depression Assessment/Plan: -Psychiatry + psychotherapy consult Problems reviewed: Yes Code(s): F32.2 - MAJOR DEPRESSV DISORD, SINGLE EPSD, SEV W/O PSYCH FEATURES (3) Anemia Assessment/Plan: -Guaiac negative -Received 1 unit PRBC -Refuses any more blood transfusions -supportive care -check Iron profile, B12, thyroid profile Problems reviewed: Yes Code(s): D64.9 - ANEMIA, UNSPECIFIED Qualifiers: Anemia type: unspecified type Qualified Code(s): D64.9 - Anemia, unspecified Assessment/Plan Spoke to mother Maddison, who states that pt has been severely depressed for a while, was evaluated by psych but was never started on any medications. Pt has hung up the phone on his mother as well, refuses to talk to anyone. She will coming in today to see him.
[2020-01-25] MEDS: APIXABAN 2.5 MG TABLET PO SCH ×2 (10:35→19:43)
[2020-01-25] MEDS: FUROSEMIDE 40 MG TABLET (FP) PO SCH ×2 (10:36→12:23)
[2020-01-25] MEDS: predniSONE 10 MG TABLET (UD) PO SCH ×2 (10:36→12:23)
[2020-01-25] MEDS: FLUDROCORTISONE ACETATE 0.1 MG TABLET (FP) PO SCH ×2 (10:36→12:23)
[2020-01-25] MEDS: COLCHICINE 0.6 MG TAB PO SCH ×2 (10:36→12:24)
[2020-01-25] MEDS: PANTOPRAZOLE 40 MG TABLET PO SCH ×2 (10:36→12:23)
[2020-01-25] MEDS ORDERED: FERRIC CARBOXYMALTOSE 750 MG in SODIUM CHLORIDE 250 ML IVPB ONE (15:00)
[2020-01-25] MEDS: CYANOCOBALAMIN (VITAMIN B-12) 1000 MCG/1 ML VIAL IM SCH (15:14)
--- NOTE | 2020-01-25 16:34 | CON.NEP ---
Consult Consult Specialty:: Nephrology Referred by:: Medicine Reason for Consultation:: CKD - History of Present Illness History of Present Illness: This is a 59 year old male with history of CKD, CHF, Afib, Gout, LE wounds, adrenal insufficiency who presented [place] with acute anemia and noted to have Cr ~2. Seen and examined at the bedside. Reports feeling well. Denies any bleeding. Leg swelling is stable. On daily lasix. No Chest pain or shortness of breath. - History Source History Provided By: Patient Limitations to Obtaining History: No Limitations - Past Medical History Cardio/Vascular: Yes: CHF, HTN, Pulmonary Hypertension, Other Renal/: Yes: Renal Inusuff Musculoskeletal: Yes: Other Additional Medical History: chronic lymphedema sees Dr Eric at the wound clinic Admitted for increasing LE EDEMA - Alcohol/Substance Use Hx Alcohol Use: No History of Substance Use: reports: None - Smoking History Smoking history: Unknown if ever smoked Have you smoked in the past 12 months: No Aproximately how many cigarettes per day: 0 - Social History Usual Living Arrangement: With Parent History of Recent Travel: No Home Medications - Allergies Allergies/Adverse Reactions: Allergies Allergy/AdvReac Type Severity Reaction Status Date / Time Egg Derived Allergy Unknown Verified 01/24/20 17:47 [place] And Derivatives Allergy Verified 01/24/20 17:47 lactose AdvReac Verified 01/24/20 17:47 - Home Medications Home Medications: Ambulatory Orders Furosemide [Lasix] 40 mg PO DAILY 06/24/16 Allopurinol 300 mg PO DAILY 06/07/18 Folic Acid 1 mg PO DAILY 06/07/18 Aspirin [ASA -] 81 mg PO DAILY #30 tab.chew 06/23/18 Ferric Citrate [Auryxia] 210 mg PO BID 02/15/19 Carvedilol [Coreg -] 6.25 mg PO BID #60 tablet 02/22/19 Isosorbide Mononitrate [Imdur -] 30 mg PO DAILY #30 tab.sr.24h 02/22/19 hydrALAZINE HCL [Apresoline -] 10 mg PO BID #60 tablet 02/22/19 Sodium Zirconium Cyclosilicate [Lokelma] 10 gm PO MOWEFR #25 powd.pack 02/24/19 Tamsulosin HCl 0.4 mg PO HS #30 capsule 02/24/19 Allopurinol 300 mg PO DAILY 04/12/19 Ferrous Sulfate 325 mg PO DAILY 04/12/19 Multivitamin with Iron 1 tab PO DAILY 04/12/19 Family Medical History Family History: Unremarkable Review of Systems - Review of Systems Constitutional: reports: No Symptoms Eyes: reports: No Symptoms HENT: reports: No Symptoms Neck: reports: No Symptoms Cardiovascular: reports: No Symptoms Respiratory: reports: No Symptoms Gastrointestinal: reports: No Symptoms Genitourinary: reports: No Symptoms Breasts: reports: No Symptoms Reported Musculoskeletal: reports: No Symptoms Neurological: reports: No Symptoms Nephrology Consult - Height Height: 6 ft 3 in - Weight Weight: 108.409 kg - BMI Body Mass Index (BMI): 29.8 - Lab Results CBC,BMP: CBC, BMP 01/25/20 07:30 01/25/20 07:30 Anion Gap: Anion Gap Anion Gap 6 MMOL/L (8-16) L 01/25/20 07:30 - Physical Examination Vital Signs: Vital Signs Temperature 98 F 01/25/20 15:41 Pulse Rate 80 01/25/20 15:41 Respiratory Rate 20 01/25/20 15:41 Blood Pressure 134/65 01/25/20 15:41 O2 Sat by Pulse Oximetry (%) 96 01/25/20 15:41 Constitutional: Yes: No Distress, Calm HENT: Yes: Atraumatic Neck: Yes: Supple Cardiovascular: Yes: Regular Rate and Rhythm Respiratory: Yes: Regular, CTA Bilaterally Gastrointestinal: Yes: Soft Renal/: No: Bladder Distention Extremities: Yes: Other (bilateral leg in dressing.) Edema: Yes Neurological: Yes: Alert Assessment/Plan 59 year old male with history of CKD, CHF, Afib, Gout, LE wounds, adrenal insufficiency who presented [place] with acute anemia and noted to have Cr ~2 1. CKD stage 3/4 2. CHF 3. Acute on chronic anemia 4. LE wounds Renal function improved from prior admission. Continue Daily lasix with monitoring of Cr and weights. Low sodium diet. There are no overt electrolyte or acid/base disturbances High BUN could be related to upper GI bleed transfuse as per primary team would be a candidate for LUNA Wound care Trend renal function and electrolytes daily Manpreet Leon DO
--- NOTE | 2020-01-25 16:42 | CON.HO ---
Consult Consult Specialty:: Hematology Reason for Consultation:: Anemia - History of Present Illness History of Present Illness: 59 y/o gentleman with past medical history of HFrEF (30-35%), afib on AC, Gout, chronic leg wounds, primary adrenal insuf. and lymphedema, presented from [facility] after been found to have low Hg of 6.4. Denied blood in stools, black stools, blood in urine. Acknowledged to some bleeding from his leg wounds. Mentioned has prior transfusions. Denied history of bleeding or cancer personal or in his family. Hematology consulted for anemia. - History Source History Provided By: Patient, Medical Record Limitations to Obtaining History: No Limitations - Past Medical History Cardio/Vascular: Yes: CHF, HTN, Pulmonary Hypertension, Other Renal/: Yes: Renal Inusuff Musculoskeletal: Yes: Other Additional Medical History: chronic lymphedema sees Dr Eric at the wound clinic Admitted for increasing LE EDEMA - Alcohol/Substance Use Hx Alcohol Use: No History of Substance Use: reports: None - Smoking History Smoking history: Unknown if ever smoked Have you smoked in the past 12 months: No Aproximately how many cigarettes per day: 0 - Social History Usual Living Arrangement: With Parent History of Recent Travel: No Home Medications - Allergies Allergies/Adverse Reactions: Allergies Allergy/AdvReac Type Severity Reaction Status Date / Time Egg Derived Allergy Unknown Verified 01/24/20 17:47 [place] And Derivatives Allergy Verified 01/24/20 17:47 lactose AdvReac Verified 01/24/20 17:47 - Home Medications Home Medications: Ambulatory Orders Furosemide [Lasix] 40 mg PO DAILY 06/24/16 Allopurinol 300 mg PO DAILY 06/07/18 Folic Acid 1 mg PO DAILY 06/07/18 Aspirin [ASA -] 81 mg PO DAILY #30 tab.chew 06/23/18 Ferric Citrate [Auryxia] 210 mg PO BID 02/15/19 Carvedilol [Coreg -] 6.25 mg PO BID #60 tablet 02/22/19 Isosorbide Mononitrate [Imdur -] 30 mg PO DAILY #30 tab.sr.24h 02/22/19 hydrALAZINE HCL [Apresoline -] 10 mg PO BID #60 tablet 02/22/19 Sodium Zirconium Cyclosilicate [Lokelma] 10 gm PO MOWEFR #25 powd.pack 02/24/19 Tamsulosin HCl 0.4 mg PO HS #30 capsule 02/24/19 Allopurinol 300 mg PO DAILY 04/12/19 Ferrous Sulfate 325 mg PO DAILY 04/12/19 Multivitamin with Iron 1 tab PO DAILY 04/12/19 Review of Systems - Review of Systems Constitutional: reports: No Symptoms Eyes: reports: No Symptoms HENT: reports: No Symptoms Neck: reports: No Symptoms Cardiovascular: reports: No Symptoms Respiratory: reports: No Symptoms Gastrointestinal: reports: No Symptoms Genitourinary: reports: No Symptoms Musculoskeletal: reports: No Symptoms Integumentary: reports: Wound Neurological: reports: No Symptoms Hematology/Lymphatic: reports: No Symptoms Psychiatric: reports: No Symptoms Physical Exam Vital Signs: Vital Signs Temperature 98 F 01/25/20 15:41 Pulse Rate 80 01/25/20 15:41 Respiratory Rate 20 01/25/20 15:41 Blood Pressure 134/65 01/25/20 15:41 O2 Sat by Pulse Oximetry (%) 96 01/25/20 15:41 Constitutional: Yes: Well Nourished, No Distress Eyes: Yes: WNL HENT: Yes: WNL, Atraumatic, Normocephalic Neck: Yes: WNL, Supple, Trachea Midline Respiratory: Yes: WNL, Regular, CTA Bilaterally Gastrointestinal: Yes: WNL, Normal Bowel Sounds Renal/: Yes: WNL Musculoskeletal: Yes: WNL Extremities: Yes: Other (Bilateral wounds) Integumentary: Yes: Other (Wounds) Neurological: Yes: WNL, Alert, Oriented Labs: CBC, BMP 01/25/20 07:30 01/25/20 07:30 Assessment/Plan 59 y/o gentleman with past medical history of HFrEF (30-35%), afib on AC, Gout, chronic leg wounds, primary adrenal insuf. and lymphedema, presented from [facility] after been found to have low Hg of 6.4. Denied blood in stools, black stools, blood in urine. Acknowledged to some bleeding from his leg wounds. Mentioned has prior transfusions. Denied history of bleeding or cancer personal or in his family. Hematology consulted for anemia. Recommend: 1) Iron deficiency anemia secondary to blood loss. Possibly from wounds. Transfused pRBCs and Iron IV provided by primary team. 2) GI evaluation for EGD/Colonoscopy inpatient vs outpatient. 3) Endocrine evaluation. Adrenal insufficiency can cause anemia as well. 4) No evidence of primary hematologic disorder at this time. 5) Thank you for this consultation.
[2020-01-26 08:11] LABS: BASO % 0.8 % (0-2.0); EOS % 2.7 % (0-4.5); HEMATOCRIT 23.4 % (35.4-49); HEMOGLOBIN 7.3 GM/dL (11.7-16.9); LYMPH % 18.1 % (8-40); MCH 24.2 pg (25.7-33.7); MEAN CELL VOLUME 77.9 fl (80-96); MEAN PLT VOLUME 9.1 fl (7.5-11.1); MONO % 11.4 % (3.8-10.2); PLATELET COUNT 230 K/MM3 (134-434); RDW 18.2 % (11.9-15.9); WHITE BLOOD COUNT 6.5 K/mm3 (4.0-10.0)
[2020-01-26 08:30] LABS: BILIRUBIN,TOTAL 0.6 mg/dL (0.2-1); BLOOD UREA NITROGEN 74.1 mg/dL (7-18); CALCIUM 7.8 mg/dL (8.5-10.1); CREATININE 2.3 mg/dL (0.55-1.3); POTASSIUM 4.7 mmol/L (3.5-5.1); TOT PROT 7.6 g/dl (6.4-8.2)
[2020-01-26] MEDS ORDERED: PT OWN MED DRAWER 7, Y5N ONE (10:35)
--- NOTE | 2020-01-26 11:19 | PN ---
Progress Note, Physician History of Present Illness: Seen and examined at the bedside awake and alert offers no acute complaints denies any sob, cp, abd pain, fever or chills making urine - Current Medication List Current Medications: Active Medications Acetaminophen (Tylenol -) 650 mg PO Q6H PRN PRN Reason: PAIN LEVEL 1-5 Apixaban (Eliquis -) 2.5 mg PO BID [facility] Last Admin: 01/25/20 19:43 Dose: Not Given Documented by: Colchicine (Colcrys) 0.6 mg PO DAILY [facility] Last Admin: 01/25/20 12:24 Dose: 0.6 mg Documented by: Cyanocobalamin (Vitamin B12 Injection -) 1,000 mcg IM DAILY [facility] Last Admin: 01/25/20 15:14 Dose: 1,000 mcg Documented by: Fludrocortisone Acetate (Florinef -) 0.1 mg PO DAILY [facility] Last Admin: 01/25/20 12:23 Dose: 0.1 mg Documented by: Furosemide (Lasix -) 40 mg PO DAILY [facility] Last Admin: 01/25/20 12:23 Dose: 40 mg Documented by: Oxycodone HCl (Roxicodone -) 5 mg PO Q6H PRN PRN Reason: PAIN LEVEL 6-10 Pantoprazole Sodium (Protonix -) 40 mg PO DAILY [facility] Last Admin: 01/25/20 12:23 Dose: 40 mg Documented by: Polysaccharide Iron Complex (Niferex-150 -) 150 mg PO DAILY [facility] Prednisone (Deltasone -) 10 mg PO DAILY [facility] Last Admin: 01/25/20 12:23 Dose: 10 mg Documented by: - Objective Vital Signs: Vital Signs Temperature 98.6 F 01/26/20 09:38 Pulse Rate 78 01/26/20 09:38 Respiratory Rate 18 01/26/20 09:38 Blood Pressure 136/71 01/26/20 09:38 O2 Sat by Pulse Oximetry (%) 100 01/26/20 09:38 Constitutional: Yes: No Distress Cardiovascular: Yes: Regular Rate and Rhythm Respiratory: Yes: Regular Gastrointestinal: Yes: Soft Edema: Yes Labs: CBC, BMP 01/26/20 07:26 01/26/20 07:26 INR, PTT INR 1.29 (0.83-1.09) H 01/25/20 07:30 Assessment/Plan 59 year old male with history of CKD, CHF, Afib, Gout, LE wounds, adrenal insufficiency who presented from [place] with acute anemia and noted to have Cr ~2 1. CKD stage 3/4 2. CHF 3. Acute on chronic anemia 4. LE wounds Renal function essentially stable Continue Daily lasix Low sodium diet. There are no overt electrolyte or acid/base disturbances High BUN could be related to upper GI bleed transfuse as per primary team, responded well to 1 unit yesterday Will give LUNA x 1, check iron studies Wound care Trend renal function and electrolytes daily Manpreet Leon DO
[2020-01-26] MEDS: FLUDROCORTISONE ACETATE 0.1 MG TABLET (FP) PO SCH (11:57)
[2020-01-26] MEDS: predniSONE 10 MG TABLET (UD) PO SCH (11:57)
[2020-01-26] MEDS: IRON POLYSACCHARIDES 150 MG CAPSULE PO SCH (11:57)
[2020-01-26] MEDS: COLCHICINE 0.6 MG TAB PO SCH (11:57)
[2020-01-26] MEDS: FUROSEMIDE 40 MG TABLET (FP) PO SCH (11:57)
[2020-01-26] MEDS: PANTOPRAZOLE 40 MG TABLET PO SCH (11:57)
[2020-01-26] MEDS: CYANOCOBALAMIN (VITAMIN B-12) 1000 MCG/1 ML VIAL IM SCH (11:58)
[2020-01-26] MEDS ORDERED: IRON SUCROSE INJECTION 100 MG in SODIUM CHLORIDE 95 ML IVPB ONE (12:00)
--- NOTE | 2020-01-26 12:21 | PN ---
Progress Note, Physician Chief Complaint: Anemia History of Present Illness: 59 YO AA man with Mhx of HFrEF (30-35%), afib on AC, Gout, chronic leg wounds, primary adrenal insuf. and lymphedema, presented from [facility] after been found to have low Hg of 6.4. Pt denies dizziness, CP, palpitations, no LOC, no change in bowel habits, or urine habits, no change in color of stool. Pt recalls needing blood transfusion one year ago, but denies any bleeding. - Current Medication List Current Medications: Active Medications Acetaminophen (Tylenol -) 650 mg PO Q6H PRN PRN Reason: PAIN LEVEL 1-5 Apixaban (Eliquis -) 2.5 mg PO BID [facility] Last Admin: 01/25/20 19:43 Dose: Not Given Documented by: Colchicine (Colcrys) 0.6 mg PO DAILY [facility] Last Admin: 01/26/20 11:57 Dose: 0.6 mg Documented by: Cyanocobalamin (Vitamin B12 Injection -) 1,000 mcg IM DAILY [facility] Last Admin: 01/26/20 11:58 Dose: 1,000 mcg Documented by: Fludrocortisone Acetate (Florinef -) 0.1 mg PO DAILY [facility] Last Admin: 01/26/20 11:57 Dose: 0.1 mg Documented by: Furosemide (Lasix -) 40 mg PO DAILY [facility] Last Admin: 01/26/20 11:57 Dose: 40 mg Documented by: Iron Sucrose 100 mg/ Sodium (Chloride) 100 mls @ 200 mls/hr IVPB ONCE ONE Stop: 01/26/20 12:29 Oxycodone HCl (Roxicodone -) 5 mg PO Q6H PRN PRN Reason: PAIN LEVEL 6-10 Pantoprazole Sodium (Protonix -) 40 mg PO DAILY [facility] Last Admin: 01/26/20 11:57 Dose: 40 mg Documented by: Polysaccharide Iron Complex (Niferex-150 -) 150 mg PO DAILY [facility] Last Admin: 01/26/20 11:57 Dose: 150 mg Documented by: Prednisone (Deltasone -) 10 mg PO DAILY [facility] Last Admin: 01/26/20 11:57 Dose: 10 mg Documented by: - Objective Vital Signs: Vital Signs Temperature 98.6 F 01/26/20 09:38 Pulse Rate 78 10/11/20 09:38 Respiratory Rate 18 01/26/20 09:38 Blood Pressure 136/71 01/26/20 09:38 O2 Sat by Pulse Oximetry (%) 100 01/26/20 09:38 Constitutional: Yes: Well Nourished, No Distress, Calm Cardiovascular: Yes: Regular Rate and Rhythm Respiratory: Yes: Regular, CTA Bilaterally Gastrointestinal: Yes: Normal Bowel Sounds, Soft Genitourinary: Yes: WNL Musculoskeletal: Yes: Muscle Weakness Extremities: Yes: WNL Edema: No Peripheral Pulses WNL: Yes Wound/Incision: Yes: Dressing Dry and Intact (BLLE) Neurological: Yes: Alert, Oriented Psychiatric: Yes: Alert, Oriented Labs: CBC, BMP 01/26/20 07:26 01/26/20 07:26 INR, PTT INR 1.29 (0.83-1.09) H 01/25/20 07:30 Problem List - Problems (1) CKD (chronic kidney disease) Assessment/Plan: -Nephrology consult -Cr at baseline Problems reviewed: Yes Code(s): N18.9 - CHRONIC KIDNEY DISEASE, UNSPECIFIED (2) Severe depression Assessment/Plan: -Psychiatry + psychotherapy consult Problems reviewed: Yes Code(s): F32.2 - MAJOR DEPRESSV DISORD, SINGLE EPSD, SEV W/O PSYCH FEATURES (3) Anemia Assessment/Plan: -Guaiac negative -Received 2 unit PRBC this admission -supportive care -Iron % low -Received Injectafer yesterday -B12 low, start cyanocobalamine 1000 mcg IM daily--> transition to 2500 mcg SL upon discharge -thyroid profile pending Problems reviewed: Yes Code(s): D64.9 - ANEMIA, UNSPECIFIED Qualifiers: Anemia type: unspecified type Qualified Code(s): D64.9 - Anemia, unspecified Assessment/Plan Spoke to pt's mother Maddison yesterday, who states that pt had been severely depressed for a while, was evaluated by psych but was never started on any medications. Pt has hung up the phone on his mother as well, refuses to talk to anyone. She will coming in to see him.
--- NOTE | 2020-01-26 14:59 | CON.GI ---
Consult Consult Specialty:: coverage for Dr Love - History of Present Illness History of Present Illness: he patient is a 59y/o M with a pmh of afib, peripheral artery disease, congestive heart failure, chronic leg wounds who presents to the ED BIBA from [facility] for hemoglobin of 6.4. Pt had lab work done today and was found to have hemoglobin of 6.4. Denies fever, chills, chest pain, SOB, palpitation, dizziness, weakness, N, V, D, abdominal pain, bladder and bowel problems, leg swelling, No sick contacts or travel. No new changes in medications. He is guiaiac negative, no hematuria, colonoscopy many years ago, no recent EGD. He takes 81 mg of Aspirin daily - Past Medical History Cardio/Vascular: Yes: CHF, HTN, Pulmonary Hypertension, Other Renal/: Yes: Renal Inusuff Musculoskeletal: Yes: Other Additional Medical History: chronic lymphedema sees Dr Eric at the wound clinic Admitted for increasing LE EDEMA - Alcohol/Substance Use Hx Alcohol Use: No History of Substance Use: reports: None - Smoking History Smoking history: Unknown if ever smoked Have you smoked in the past 12 months: No Aproximately how many cigarettes per day: 0 - Social History Usual Living Arrangement: With Parent History of Recent Travel: No Home Medications - Allergies Allergies/Adverse Reactions: Allergies Allergy/AdvReac Type Severity Reaction Status Date / Time Egg Derived Allergy Unknown Verified 01/24/20 17:47 [place] And Derivatives Allergy Verified 01/24/20 17:47 orange juice Allergy Verified 01/26/20 13:06 lactose AdvReac Verified 01/24/20 17:47 chocolate Allergy Uncoded 01/26/20 13:06 - Home Medications Home Medications: Ambulatory Orders Furosemide [Lasix] 40 mg PO DAILY 06/24/16 Allopurinol 300 mg PO DAILY 06/07/18 Folic Acid 1 mg PO DAILY 06/07/18 Aspirin [ASA -] 81 mg PO DAILY #30 tab.chew 06/23/18 Ferric Citrate [Auryxia] 210 mg PO BID 02/15/19 Carvedilol [Coreg -] 6.25 mg PO BID #60 tablet 02/22/19 Isosorbide Mononitrate [Imdur -] 30 mg PO DAILY #30 tab.sr.24h 02/22/19 hydrALAZINE HCL [Apresoline -] 10 mg PO BID #60 tablet 02/22/19 Sodium Zirconium Cyclosilicate [Lokelma] 10 gm PO MOWEFR #25 powd.pack 02/24/19 Tamsulosin HCl 0.4 mg PO HS #30 capsule 02/24/19 Allopurinol 300 mg PO DAILY 04/12/19 Ferrous Sulfate 325 mg PO DAILY 04/12/19 Multivitamin with Iron 1 tab PO DAILY 04/12/19 Family Medical History Family History: Unremarkable Physical Exam-GI Vital Signs: Vital Signs Temperature 97.9 F 01/26/20 14:31 Pulse Rate 84 01/26/20 14:31 Respiratory Rate 20 01/26/20 14:31 Blood Pressure 125/73 01/26/20 14:31 O2 Sat by Pulse Oximetry (%) 99 01/26/20 14:31 Constitutional: Yes: Obese Eyes: Yes: Conjunctiva Clear HENT: Yes: Atraumatic Neck: Yes: Supple Cardiovascular: Yes: Regular Rate and Rhythm Respiratory: Yes: CTA Bilaterally ...Palpate: Yes: Soft. No: Firm/Rigid, Guarding, Hepatomegaly, Mass, Pulsatile Mass, Splenomegaly, Tenderness Labs: CBC, BMP 01/26/20 07:26 01/26/20 07:26 INR, PTT INR 1.29 (0.83-1.09) H 01/25/20 07:30 CMP Sodium 143 mmol/L (136-145) 01/26/20 07:26 Potassium 4.7 mmol/L (3.5-5.1) 01/26/20 07:26 Chloride 114 mmol/L (98-107) H 01/26/20 07:26 Carbon Dioxide 23 mmol/L (21-32) 01/26/20 07:26 Anion Gap 5 MMOL/L (8-16) L 01/26/20 07:26 BUN 74.1 mg/dL (7-18) H 01/26/20 07:26 Creatinine 2.3 mg/dL (0.55-1.3) H 01/26/20 07:26 Est GFR (CKD-EPI)AfAm 34.24 01/26/20 07:26 Est GFR (CKD-EPI)NonAf 29.54 01/26/20 07:26 Random Glucose 85 mg/dL (74-106) 01/26/20 07:26 Calcium 7.8 mg/dL (8.5-10.1) L 01/26/20 07:26 Phosphorus 4.0 mg/dL (2.5-4.9) 01/25/20 07:30 Magnesium 1.8 mg/dL (1.8-2.4) 01/25/20 07:30 Iron 11 ug/dL (50-175) L 01/25/20 07:30 TIBC 187 ug/dL (250-450) L 01/25/20 07:30 Iron Saturation 5 % (17.5-39) L 01/25/20 07:30 Unsaturated IBC 176 ug/dL (200-275) L 01/25/20 07:30 Ferritin 39.7 ng/ml (8-388) 01/25/20 07:30 Total Bilirubin 0.6 mg/dL (0.2-1) 01/26/20 07:26 AST 20 U/L (15-37) 01/26/20 07:26 ALT 14 U/L (13-61) 01/26/20 07:26 Alkaline Phosphatase 113 U/L (45-117) 01/26/20 07:26 LD Total 138 U/L (87-246) 01/25/20 07:30 Total Protein 7.6 g/dl (6.4-8.2) 01/26/20 07:26 Albumin 2.0 g/dl (3.4-5.0) L 01/26/20 07:26 Triglycerides 57 mg/dL (0-150) 01/25/20 07:30 Vitamin B12 344 pg/ml (193-986) 01/25/20 07:30 TSH 1.28 uIU/ml (0.358-3.74) 01/26/20 07:26 Free T4 0.98 ng/dl (0.76-1.16) 01/26/20 07:26 Problem List - Problems (1) Anemia Assessment/Plan: r/o occult gi bleeding R> transfuse 1 unit PRBC will need gi w/u once medically cleared Dr Love will resume care in am Code(s): D64.9 - ANEMIA, UNSPECIFIED Qualifiers: Anemia type: unspecified type Qualified Code(s): D64.9 - Anemia, un specified
--- NOTE | 2020-01-26 18:02 | PN.HO ---
Progress Note (short form) - Note Progress Note: S: Doing well. Denied any complaints O: Last Vital Signs Temp Pulse Resp BP Pulse Ox 97.9 F 84 20 125/73 99 01/26/20 14:31 01/26/20 14:31 01/26/20 14:31 01/26/20 14:31 01/26/20 16:00 Gen: NAD HEENT: MMM CVS: S1, S2 Lungs: CTAB Abdomen: Soft, NT, ND Extremities: Wounds 01/26/20 07:26 01/26/20 07:26 Current Medications Generic Name Dose Route Start Last Admin Trade Name Freq PRN Reason Stop Dose Admin Acetaminophen 650 mg 01/24/20 22:01 Tylenol - PO Q6H PRN PAIN LEVEL 1-5 Apixaban 2.5 mg 01/24/20 22:00 01/25/20 19:43 Eliquis - PO Not Given BID [facility] Colchicine 0.6 mg 01/25/20 10:00 01/26/20 11:57 Colcrys PO 0.6 mg DAILY [facility] Administration Cyanocobalamin 1,000 mcg 01/25/20 13:45 01/26/20 11:58 Vitamin B12 Injection - IM 1,000 mcg DAILY [facility] Administration Fludrocortisone Acetate 0.1 mg 01/25/20 10:00 01/26/20 11:57 Florinef - PO 0.1 mg DAILY [facility] Administration Furosemide 40 mg 01/25/20 10:00 01/26/20 11:57 Lasix - PO 40 mg DAILY [facility] Administration Oxycodone HCl 5 mg 01/24/20 22:01 Roxicodone - PO Q6H PRN PAIN LEVEL 6-10 Pantoprazole Sodium 40 mg 01/25/20 10:15 01/26/20 11:57 Protonix - PO 40 mg DAILY [facility] Administration Polysaccharide Iron Complex 150 mg 01/26/20 10:00 01/26/20 11:57 Niferex-150 - PO 150 mg DAILY [facility] Administration Prednisone 10 mg 01/25/20 10:00 01/26/20 11:57 Deltasone - PO 10 mg DAILY [facility] Administration 59 y/o gentleman with past medical history of HFrEF (30-35%), afib on AC, Gout, chronic leg wounds, primary adrenal insuf. and lymphedema, presented from [facility] after been found to have low Hg of 6.4. Denied blood in stools, black stools, blood in urine. Acknowledged to some bleeding from his leg wounds. Mentioned has prior transfusions. Denied history of bleeding or cancer personal or in his family. Hematology consulted for anemia. Recommend: 1) Iron deficiency anemia secondary to blood loss. Possibly from wounds. Transfused pRBCs and Iron IV provided by primary team. Hb 7.3 2) [facility] 3) Endocrine evaluation. Adrenal insufficiency can cause anemia as well. 4) No evidence of primary hematologic disorder at this time.
[2020-01-26] MEDS: APIXABAN 2.5 MG TABLET PO SCH (22:26)
--- NOTE | 2020-01-26 22:41 | CON.PSY ---
Psychiatry Consult Chief Complaint: Client is 59 yo male who presents to ER from his [facility]. Client endorsed "i feel fine". Mood is "ok", denies Si, HI, AH or VH. Client is hopeful. Denies any psych history, mother reported that he has been down, but not agreed to treatment, after past [facility] review. Spoke withmushtaq Ordoñez rn who stated he is irritable on occassion, when can be tempered by explaining the proccedures. Symptoms: reports: Irritability - Previous Psychiatric Treatment Outpatient: More than 6 mos ago Inpatient: None - Previous Substance Abuse Treatment Outpatient: None Inpatient: None (NNo substance use historty.) - Reason for Previous Treatment Reason for Previous Treatment: Other (mental health counsellong for mild depress ion.) - Family Member Mother Hx Family Anxiety Symptoms: Yes - Current Medications Current Medications: Active Medications Acetaminophen (Tylenol -) 650 mg PO Q6H PRN PRN Reason: PAIN LEVEL 1-5 Apixaban (Eliquis -) 2.5 mg PO BID [facility] Last Admin: 01/26/20 22:26 Dose: 2.5 mg Documented by: Colchicine (Colcrys) 0.6 mg PO DAILY [facility] Last Admin: 01/26/20 11:57 Dose: 0.6 mg Documented by: Cyanocobalamin (Vitamin B12 Injection -) 1,000 mcg IM DAILY [facility] Last Admin: 01/26/20 11:58 Dose: 1,000 mcg Documented by: Fludrocortisone Acetate (Florinef -) 0.1 mg PO DAILY [facility] Last Admin: 01/26/20 11:57 Dose: 0.1 mg Documented by: Furosemide (Lasix -) 40 mg PO DAILY [facility] Last Admin: 01/26/20 11:57 Dose: 40 mg Documented by: Oxycodone HCl (Roxicodone -) 5 mg PO Q6H PRN PRN Reason: PAIN LEVEL 6-10 Pantoprazole Sodium (Protonix -) 40 mg PO DAILY [facility] Last Admin: 01/26/20 11:57 Dose: 40 mg Documented by: Polysaccharide Iron Complex (Niferex-150 -) 150 mg PO DAILY [facility] Last Admin: 01/26/20 11:57 Dose: 150 mg Documented by: Prednisone (Deltasone -) 10 mg PO DAILY [facility] Last Admin: 01/26/20 11:57 Dose: 10 mg Documented by: - Allergies Allergies: Allergies Allergy/AdvReac Type Severity Reaction Status Date / Time Egg Derived Allergy Unknown Verified 01/24/20 17:47 [place] And Derivatives Allergy Verified 01/24/20 17:47 orange juice Allergy Verified 01/26/20 13:06 lactose AdvReac Verified 01/24/20 17:47 chocolate Allergy Uncoded 01/26/20 13:06 - Current Living Status Usual Living Arrangement: Senior Care - Current Mental Status Evaluation Appearance: Disheveled Attitude: Cooperative - Affect Affect: Constrictive Appropriateness: Appropriate to Content - Mood Mood: Euthymic - Speech/Language Expressive: Coherent Receptive: Age Appropriate Comprehension of Spoken Words - Psychomotor Activity Psychomotor Activity: Normal - Thought Process Thought Process: [place] (referring to leg ulcer, stated " ihave those since a child". ) - Thought Content Hallucinations: Absent Delusions: Absent - Self Perception Self Perception: No Impairment - Cognition Attention: Alert Orientation: Time Memory, Immediate Recall: Intact Memory, Short Term: 2/3 Memory, Remote: Intact Memory, Remote with Promptin/3 - Concentration Serial Sevens Intact: No Simple Calculations Intact: Yes - Abstraction Proverb Interpretation: Impaired Judgement: Minimally Impaired - Insight Insight: Impaired - Impulse Control Impulse Control: Minimally Impaired - Suicidal Ideation Suicidal Ideation: No - Homicidal Ideation Homicidal Ideation: No Problem List - Problems (1) Depressed affect Code(s): R45.89 - OTHER SYMPTOMS AND SIGNS INVOLVING EMOTIONAL STATE Assessment/Plan Supportive care refused SSRI at this time,. Refer to counsellor on discharge, if he consents. No suicidal, appropriate for this level of care.
--- NOTE | 2020-01-27 08:06 | PN ---
Progress Note, Physician Chief Complaint: ASLEEP NAD EVENTS AND NOTES REVIEWED - Current Medication List Current Medications: Active Medications Acetaminophen (Tylenol -) 650 mg PO Q6H PRN PRN Reason: PAIN LEVEL 1-5 Apixaban (Eliquis -) 2.5 mg PO BID [facility] Last Admin: 01/26/20 22:26 Dose: 2.5 mg Documented by: Colchicine (Colcrys) 0.6 mg PO DAILY [facility] Last Admin: 01/26/20 11:57 Dose: 0.6 mg Documented by: Cyanocobalamin (Vitamin B12 Injection -) 1,000 mcg IM DAILY [facility] Last Admin: 01/26/20 11:58 Dose: 1,000 mcg Documented by: Fludrocortisone Acetate (Florinef -) 0.1 mg PO DAILY [facility] Last Admin: 01/26/20 11:57 Dose: 0.1 mg Documented by: Furosemide (Lasix -) 40 mg PO DAILY [facility] Last Admin: 01/26/20 11:57 Dose: 40 mg Documented by: Oxycodone HCl (Roxicodone -) 5 mg PO Q6H PRN PRN Reason: PAIN LEVEL 6-10 Pantoprazole Sodium (Protonix -) 40 mg PO DAILY [facility] Last Admin: 01/26/20 11:57 Dose: 40 mg Documented by: Polysaccharide Iron Complex (Niferex-150 -) 150 mg PO DAILY [facility] Last Admin: 01/26/20 11:57 Dose: 150 mg Documented by: Prednisone (Deltasone -) 10 mg PO DAILY [facility] Last Admin: 01/26/20 11:57 Dose: 10 mg Documented by: - Objective Vital Signs: Vital Signs Temperature 97.5 F L 01/26/20 22:05 Pulse Rate 79 01/26/20 22:05 Respiratory Rate 20 01/26/20 22:05 Blood Pressure 126/77 01/26/20 22:05 O2 Sat by Pulse Oximetry (%) 94 L 01/27/20 00:00 Constitutional: Yes: Other Cardiovascular: Yes: Pulse Irregular Respiratory: Yes: Diminished Gastrointestinal: Yes: Soft Genitourinary: Yes: Incontinence Musculoskeletal: Yes: Muscle Weakness Labs: CBC, BMP 01/26/20 07:26 01/26/20 07:26 INR, PTT INR 1.29 (0.83-1.09) H 01/25/20 07:30 Problem List - Problems (1) CKD (chronic kidney disease) Code(s): N18.9 - CHRONIC KIDNEY DISEASE, UNSPECIFIED (2) Depressed affect Code(s): R45.89 - OTHER SYMPTOMS AND SIGNS INVOLVING EMOTIONAL STATE (3) Severe depression Code(s): F32.2 - MAJOR DEPRESSV DISORD, SINGLE EPSD, SEV W/O PSYCH FEATURES (4) Anemia Code(s): D64.9 - ANEMIA, UNSPECIFIED Qualifiers: Anemia type: unspecified type Qualified Code(s): D64.9 - Anemia, unspecified (5) Renal insufficiency Code(s): N28.9 - DISORDER OF KIDNEY AND URETER, UNSPECIFIED (6) Degenerative joint disease of knee, left Code(s): M17.12 - UNILATERAL PRIMARY OSTEOARTHRITIS, LEFT KNEE Qualifiers: Osteoarthritis type: unspecified Qualified Code(s): M17.12 - Unilateral primary osteoarthritis, left knee (7) Dilated aortic root Code(s): I77.810 - THORACIC AORTIC ECTASIA (8) Iron deficiency anemia Code(s): D50.9 - IRON DEFICIENCY ANEMIA, UNSPECIFIED (9) Paroxysmal atrial fibrillation with rapid ventricular response Code(s): I48.0 - PAROXYSMAL ATRIAL FIBRILLATION Assessment/Plan MONITOR LABS, CBC PENDING TODAY TRANSFUSE PRBC KEEP HEMOGLOBIN >8 GI EVAL APPRECIATED ESRD MAY NEED PROCRIT RENAL/NEPHROLOGY EVAL IN PROGRESS DVT PROPHYLAXIS DNR/DNI
[2020-01-27] MEDS ORDERED: PT OWN MED DRAWER 7, Y5N ONE (09:40)
[2020-01-27] MEDS: FUROSEMIDE 40 MG TABLET (FP) PO SCH (10:30)
[2020-01-27] MEDS: APIXABAN 2.5 MG TABLET PO SCH ×2 (10:30→21:11)
[2020-01-27] MEDS: IRON POLYSACCHARIDES 150 MG CAPSULE PO SCH (10:30)
[2020-01-27] MEDS: PANTOPRAZOLE 40 MG TABLET PO SCH (10:30)
[2020-01-27] MEDS: FLUDROCORTISONE ACETATE 0.1 MG TABLET (FP) PO SCH (10:31)
[2020-01-27] MEDS: CYANOCOBALAMIN (VITAMIN B-12) 1000 MCG/1 ML VIAL IM SCH (10:32)
[2020-01-27] MEDS: predniSONE 10 MG TABLET (UD) PO SCH (10:32)
[2020-01-27] MEDS: COLCHICINE 0.6 MG TAB PO SCH (10:32)
[2020-01-27 13:18] LABS: HEMATOCRIT 24.1 % (35.4-49); HEMOGLOBIN 7.5 GM/dL (11.7-16.9); MCHC 30.9 g/dl (32.0-35.9); MEAN CELL VOLUME 77.7 fl (80-96); MEAN PLT VOLUME 8.7 fl (7.5-11.1); PLATELET COUNT 262 K/MM3 (134-434); RBC 3.11 M/mm3 (4.00-5.60); RDW 18.2 % (11.9-15.9); WHITE BLOOD COUNT 6.3 K/mm3 (4.0-10.0)
[2020-01-27 14:02] LABS: CALCIUM 7.8 mg/dL (8.5-10.1); CREATININE 2.1 mg/dL (0.55-1.3); MAGNESIUM 1.7 mg/dL (1.8-2.4); POTASSIUM 4.7 mmol/L (3.5-5.1)
--- NOTE | 2020-01-27 14:21 | PN.GI ---
GI Progress Note Subjective: No acute events No focal complaints - Objective Vital Signs: Vital Signs Temperature 97.5 F L 01/26/20 22:05 Pulse Rate 79 01/26/20 22:05 Respiratory Rate 20 01/26/20 22:05 Blood Pressure 126/77 01/26/20 22:05 O2 Sat by Pulse Oximetry (%) 94 L 01/27/20 00:00 Constitutional: Calm Eyes: No: Sclera Icterus Cardiovascular: Yes: Regular Rate and Rhythm Respiratory: Yes: Rhonchi (right lung base) Gastrointestinal Inspection: No: Distention ...Auscultate: Yes: Normoactive Bowel Sounds ...Palpate: Yes: Soft. No: Hepatomegaly, Splenomegaly, Tenderness Extremities: Yes: Other (Bilateral LE dressings) Neurological: Yes: Alert Labs: CBC, BMP 01/27/20 12:36 01/27/20 12:36 INR, PTT INR 1.29 (0.83-1.09) H 01/25/20 07:30 Problem List - Problems (1) Anemia Assessment/Plan: No overt bleeding suspect multifactorial anemia including component of iron deficiency Suspect weeping leg wounds playing a role, however GI source (ie. bleeding blood vessel, polyp, cancer) could not be excluded. Discussed upper endoscopy and colonoscopy with patient for further intraluminal evaluation. Discussed potential risks of the procedures like but not limited to bleeding, perforation requiringh surgery to repair, infection, sedation medication effects all of which could be potentially life threatening. He has agreed to the procedures - Will need medical clearance - DNR status will need to be clarified during procedure - Recall GI when patient cleared for procedures - Monitor H/H and for overt bleeding. Keep Hgb >7 - Would need eliquis held 3-4 days prior to the procedures taking into account his renal function Code(s): D64.9 - ANEMIA, UNSPECIFIED Qualifiers: Anemia type: unspecified type Qualified Code(s): D64.9 - Anemia, unspecified
--- NOTE | 2020-01-27 16:03 | PN ---
Progress Note, Physician History of Present Illness: Pt seen and examined at bedside. He is awake and alert. he denies shortness of breath. - Current Medication List Current Medications: Active Medications Acetaminophen (Tylenol -) 650 mg PO Q6H PRN PRN Reason: PAIN LEVEL 1-5 Apixaban (Eliquis -) 2.5 mg PO BID [facility] Last Admin: 01/27/20 10:30 Dose: 2.5 mg Documented by: Colchicine (Colcrys) 0.6 mg PO DAILY [facility] Last Admin: 01/27/20 10:32 Dose: 0.6 mg Documented by: Cyanocobalamin (Vitamin B12 Injection -) 1,000 mcg IM DAILY [facility] Last Admin: 01/27/20 10:32 Dose: 1,000 mcg Documented by: Fludrocortisone Acetate (Florinef -) 0.1 mg PO DAILY [facility] Last Admin: 01/27/20 10:31 Dose: 0.1 mg Documented by: Furosemide (Lasix -) 40 mg PO DAILY [facility] Last Admin: 01/27/20 10:30 Dose: 40 mg Documented by: Oxycodone HCl (Roxicodone -) 5 mg PO Q6H PRN PRN Reason: PAIN LEVEL 6-10 Pantoprazole Sodium (Protonix -) 40 mg PO DAILY [facility] Last Admin: 01/27/20 10:30 Dose: 40 mg Documented by: Polysaccharide Iron Complex (Niferex-150 -) 150 mg PO DAILY [facility] Last Admin: 01/27/20 10:30 Dose: 150 mg Documented by: Prednisone (Deltasone -) 10 mg PO DAILY [facility] Last Admin: 01/27/20 10:32 Dose: 10 mg Documented by: - Objective Vital Signs: Vital Signs Temperature 97.6 F 01/27/20 14:00 Pulse Rate 73 01/27/20 14:00 Respiratory Rate 20 01/27/20 14:00 Blood Pressure 128/86 01/27/20 14:00 O2 Sat by Pulse Oximetry (%) 100 01/27/20 14:00 Constitutional: Yes: Calm Eyes: Yes: Conjunctiva Clear Cardiovascular: Yes: S1, S2 Respiratory: Yes: CTA Bilaterally Gastrointestinal: Yes: Soft Genitourinary: Yes: WNL Edema: Yes Edema: LLE: Trace, RLE: Trace Wound/Incision: Yes: Dressing Dry and Intact Neurological: Yes: Oriented Psychiatric: Yes: Oriented Labs: CBC, BMP 01/27/20 12:36 01/27/20 12:36 INR, PTT INR 1.29 (0.83-1.09) H 01/25/20 07:30 Assessment/Plan Current Medications Generic Name Dose Route Start Last Admin Trade Name Freq PRN Reason Stop Dose Admin Acetaminophen 650 mg 01/24/20 22:01 Tylenol - PO Q6H PRN PAIN LEVEL 1-5 Apixaban 2.5 mg 01/24/20 22:00 01/27/20 10:30 Eliquis - PO 2.5 mg BID [facility] Administration Colchicine 0.6 mg 01/25/20 10:00 01/27/20 10:32 Colcrys PO 0.6 mg DAILY [facility] Administration Cyanocobalamin 1,000 mcg 01/25/20 13:45 01/27/20 10:32 Vitamin B12 Injection - IM 1,000 mcg DAILY [facility] Administration Fludrocortisone Acetate 0.1 mg 01/25/20 10:00 01/27/20 10:31 Florinef - PO 0.1 mg DAILY [facility] Administration Furosemide 40 mg 01/25/20 10:00 01/27/20 10:30 Lasix - PO 40 mg DAILY [facility] Administration Oxycodone HCl 5 mg 01/24/20 22:01 Roxicodone - PO Q6H PRN PAIN LEVEL 6-10 Pantoprazole Sodium 40 mg 01/25/20 10:15 01/27/20 10:30 Protonix - PO 40 mg DAILY [facility] Administration Polysaccharide Iron Complex 150 mg 01/26/20 10:00 01/27/20 10:30 Niferex-150 - PO 150 mg DAILY [facility] Administration Prednisone 10 mg 01/25/20 10:00 01/27/20 10:32 Deltasone - PO 10 mg DAILY [facility] Administration Impression 1. CKD 2. chf 3. anemia 4. lower ext wounds 5. a-fib 6. gout Plan - renal function stable - cont lasix - cnt wound care - avoid nsaids - avoid nephrotoxins
--- NOTE | 2020-01-27 18:32 | CON.PSY ---
Psychiatry Consult Chief Complaint: Client met on unit, introduced by dr Maulik House. Client is a 46 yo admitted for SOB. Consult to Psychiatry called due to labile mood, paronoia, Delusions of granduer. He has a history of nicotine depredence, DM, denies alchol or substance use. History of Present Problem: Client stated he is homeless for >3 yrs, currently domiciled in [facility] in [place]. He denies past treatment for psychiatry or refused psychotrophic treatment, but is known to [facility]. - Current Medications Current Medications: Active Medications Acetaminophen (Tylenol -) 650 mg PO Q6H PRN PRN Reason: PAIN LEVEL 1-5 Apixaban (Eliquis -) 2.5 mg PO BID [facility] Last Admin: 01/27/20 10:30 Dose: 2.5 mg Documented by: Colchicine (Colcrys) 0.6 mg PO DAILY [facility] Last Admin: 01/27/20 10:32 Dose: 0.6 mg Documented by: Cyanocobalamin (Vitamin B12 Injection -) 1,000 mcg IM DAILY [facility] Last Admin: 01/27/20 10:32 Dose: 1,000 mcg Documented by: Fludrocortisone Acetate (Florinef -) 0.1 mg PO DAILY [facility] Last Admin: 01/27/20 10:31 Dose: 0.1 mg Documented by: Furosemide (Lasix -) 40 mg PO DAILY [facility] Last Admin: 01/27/20 10:30 Dose: 40 mg Documented by: Oxycodone HCl (Roxicodone -) 5 mg PO Q6H PRN PRN Reason: PAIN LEVEL 6-10 Pantoprazole Sodium (Protonix -) 40 mg PO DAILY [facility] Last Admin: 01/27/20 10:30 Dose: 40 mg Documented by: Polysaccharide Iron Complex (Niferex-150 -) 150 mg PO DAILY [facility] Last Admin: 01/27/20 10:30 Dose: 150 mg Documented by: Prednisone (Deltasone -) 10 mg PO DAILY [facility] Last Admin: 01/27/20 10:32 Dose: 10 mg Documented by: - Allergies Allergies: Allergies Allergy/AdvReac Type Severity Reaction Status Date / Time Egg Derived Allergy Unknown Verified 01/24/20 17:47 [place] And Derivatives Allergy Verified 01/24/20 17:47 orange juice Allergy Verified 01/26/20 13:06 lactose AdvReac Verified 01/24/20 17:47 chocolate Allergy Uncoded 01/26/20 13:06 - Current Medical Problems Current Medical Problems: HTN, SOB, on sleep apnea machines, severe acites. - Current Living Status Usual Living Arrangement: Alone - Current Mental Status Evaluation Appearance: Bizarre (legs spread out, octavia red face covered in unkempt cooper, obese.. with wild expressive eyes. ) Attitude: Cooperative, Suspicious, Belligerent - Affect Affect: Labile, Expansive Appropriateness: Not Appropriate - Mood Mood: Euphoric, Angry, Irritable - Speech/Language Expressive: Talkative - Psychomotor Activity Psychomotor Activity: Hyperactive, Tics - Thought Process Thought Process: Circumstantial, Loosening of Associations, Flight of Ideas, Transgential - Thought Content Hallucinations: Present Type: Tactile Delusions: Present Type: Grandiose, Bizarre (Feeling that energy waves from 5 G is causing his oedema, boats on [place] control the energy fgields. ), Somatic ("microwaves in the air that cause me pain". ) - Self Perception Self Perception: Derealization - Cognition Attention: Alert Orientation: Time, Place Memory, Immediate Recall: Impaired Memory, Short Term: 2/3 Memory, Remote: Impaired - Concentration Serial Sevens Intact: No Simple Calculations Intact: Yes - Abstraction Proverb Interpretation: Impaired Judgement: Moderately Impaired - Insight Insight: Impaired - Impulse Control Impulse Control: Moderately Impaired - Suicidal Ideation Suicidal Ideation: No ("self preservation". ) - Homicidal Ideation Homicidal Ideation: No (" i can hold myself back when i need to, ". ) Problem List - Problems (1) Depressed affect Code(s): R45.89 - OTHER SYMPTOMS AND SIGNS INVOLVING EMOTIONAL STATE (2) Manic behavior Problems reviewed: Yes Code(s): F30.10 - MANIC EPISODE WITHOUT PSYCHOTIC SYMPTOMS, UNSPECIFIED Assessment/Plan Client extremely psychotic in acute agitated manic state. Poor judgement, poor sleep for > 2 weeks, poor appetite. Believes his daughter is in the "spirit realm". Pressured speech. poor boundaries. Spoke with ROSELINE Hanley and dr House. "i need a devoted MD". request pain control, rn made aware., Supportive care CONsiDer mood stabilizer and antipsychotic that is least nephro toxic. risperidal 1mg po bid depakote 250 mg po bid, may titrate at later point.. Refer to counsellor on discharge, if he consents. No suicidal, appropriate for this level of care. Please consult Further with Dr Reagan who will be available > 01/28/20
--- NOTE | 2020-01-28 07:47 | PN ---
Progress Note, Physician Chief Complaint: ASLEEP NAD I CALLED THE MARCIA AND MOTHER MIN FOR FURTHER INSTRUCTIONS AND DECISION MAKING FOR ANEMIA WORKUP. - Current Medication List Current Medications: Active Medications Acetaminophen (Tylenol -) 650 mg PO Q6H PRN PRN Reason: PAIN LEVEL 1-5 Apixaban (Eliquis -) 2.5 mg PO BID [facility] Last Admin: 01/27/20 21:11 Dose: 2.5 mg Documented by: Colchicine (Colcrys) 0.6 mg PO DAILY [facility] Last Admin: 01/27/20 10:32 Dose: 0.6 mg Documented by: Cyanocobalamin (Vitamin B12 Injection -) 1,000 mcg IM DAILY [facility] Last Admin: 01/27/20 10:32 Dose: 1,000 mcg Documented by: Fludrocortisone Acetate (Florinef -) 0.1 mg PO DAILY [facility] Last Admin: 01/27/20 10:31 Dose: 0.1 mg Documented by: Furosemide (Lasix -) 40 mg PO DAILY [facility] Last Admin: 01/27/20 10:30 Dose: 40 mg Documented by: Oxycodone HCl (Roxicodone -) 5 mg PO Q6H PRN PRN Reason: PAIN LEVEL 6-10 Pantoprazole Sodium (Protonix -) 40 mg PO DAILY [facility] Last Admin: 01/27/20 10:30 Dose: 40 mg Documented by: Polysaccharide Iron Complex (Niferex-150 -) 150 mg PO DAILY [facility] Last Admin: 01/27/20 10:30 Dose: 150 mg Documented by: Prednisone (Deltasone -) 10 mg PO DAILY [facility] Last Admin: 01/27/20 10:32 Dose: 10 mg Documented by: - Objective Vital Signs: Vital Signs Temperature 97.9 F 01/27/20 21:56 Pulse Rate 60 01/27/20 21:56 Respiratory Rate 20 01/27/20 21:56 Blood Pressure 140/75 01/27/20 21:56 O2 Sat by Pulse Oximetry (%) 100 01/28/20 00:00 Constitutional: Yes: No Distress Cardiovascular: Yes: Pulse Irregular Respiratory: Yes: Diminished Gastrointestinal: Yes: Soft Genitourinary: Yes: Incontinence Musculoskeletal: Yes: Muscle Weakness Edema: Yes Integumentary: Yes: Erythema, Pressure Ulcer, Skin Tear Wound/Incision: Yes: Dressing Dry and Intact, Excoriated, Unapproximated Neurological: Yes: Pre-Existing Deficit ...Motor Strength: LLE, RLE (MULTIPLE LEG ULCERS B/L WITH DRESSING) Labs: CBC, BMP 01/27/20 12:36 01/27/20 12:36 INR, PTT INR 1.29 (0.83-1.09) H 01/25/20 07:30 Problem List - Problems (1) CKD (chronic kidney disease) Code(s): N18.9 - CHRONIC KIDNEY DISEASE, UNSPECIFIED (2) Depressed affect Code(s): R45.89 - OTHER SYMPTOMS AND SIGNS INVOLVING EMOTIONAL STATE (3) Severe depression Code(s): F32.2 - MAJOR DEPRESSV DISORD, SINGLE EPSD, SEV W/O PSYCH FEATURES (4) Anemia Code(s): D64.9 - ANEMIA, UNSPECIFIED Qualifiers: Anemia type: unspecified type Qualified Code(s): D64.9 - Anemia, unspecified (5) Renal insufficiency Code(s): N28.9 - DISORDER OF KIDNEY AND URETER, UNSPECIFIED (6) Degenerative joint disease of knee, left Code(s): M17.12 - UNILATERAL PRIMARY OSTEOARTHRITIS, LEFT KNEE Qualifiers: Osteoarthritis type: unspecified Qualified Code(s): M17.12 - Unilateral primary osteoarthritis, left knee (7) Dilated aortic root Code(s): I77.810 - THORACIC AORTIC ECTASIA (8) Iron deficiency anemia Code(s): D50.9 - IRON DEFICIENCY ANEMIA, UNSPECIFIED (9) Paroxysmal atrial fibrillation with rapid ventricular response Code(s): I48.0 - PAROXYSMAL ATRIAL FIBRILLATION (10) Bilateral lower leg cellulitis Code(s): L03.116 - CELLULITIS OF LEFT LOWER LIMB; L03.115 - CELLULITIS OF RIGHT LOWER LIMB Assessment/Plan I SPOKE WITH MARCIA THE PATIENT'S AND THE MOM MIN [phone] THEY ARE IN AGREEMENT WITH AN UPPER AND LOWER GI WORKUP WITH POSSIBLE ENDOSCOPY/COLONOSCOPY. I EXPLAINED THE RISKS OF SUDDEN CARDIAC , CVA, INFECTIONS AND PERFORATIONS OF THE GI TRACT AND THEY FEEL THE RISK OUTWEIGHS THE BENEFIT. NURSE MATSON WITNESSED THE CONVERSATION.MIN THE MOM IS THE HEALTH CARE PROXY. WILL CONFIRM THAT MOM IS HCP. TRANSFUSE NEEDED PRBC KEEP HGB >8 WOUND CARE [facility] CALLED FOR EVAL HEME/ONC AND GI EVAL APPRECIATED
[2020-01-28 08:53] LABS: BASO % 0.7 % (0-2.0); HEMATOCRIT 22.6 % (35.4-49); HEMOGLOBIN 7.1 GM/dL (11.7-16.9); LYMPH % 17.6 % (8-40); MCH 24.8 pg (25.7-33.7); MCHC 31.4 g/dl (32.0-35.9); MEAN CELL VOLUME 78.9 fl (80-96); MEAN PLT VOLUME 9.1 fl (7.5-11.1); MONO % 12.6 % (3.8-10.2); NEUT % 65.1 % (42.8-82.8); PLATELET COUNT 212 K/MM3 (134-434); RBC 2.86 M/mm3 (4.00-5.60); RDW 18.1 % (11.9-15.9); WHITE BLOOD COUNT 6.3 K/mm3 (4.0-10.0)
[2020-01-28 09:27] LABS: BILIRUBIN,TOTAL 0.5 mg/dL (0.2-1); BLOOD UREA NITROGEN 66.7 mg/dL (7-18); CALCIUM 7.3 mg/dL (8.5-10.1); MAGNESIUM 1.8 mg/dL (1.8-2.4); POTASSIUM 4.6 mmol/L (3.5-5.1); TOT PROT 7.5 g/dl (6.4-8.2)
[2020-01-28 09:28] LABS: CREATININE 2.1 mg/dL (0.55-1.3); PHOSPHOROUS 3.3 mg/dL (2.5-4.9)
[2020-01-28] MEDS ORDERED: PT OWN MED DRAWER 7, Y5N ONE ×2 (10:33→13:11)
[2020-01-28] MEDS: FLUDROCORTISONE ACETATE 0.1 MG TABLET (FP) PO SCH ×3 (10:40→15:32)
[2020-01-28] MEDS: predniSONE 10 MG TABLET (UD) PO SCH ×3 (10:40→15:32)
[2020-01-28] MEDS: COLCHICINE 0.6 MG TAB PO SCH ×3 (10:40→15:32)
[2020-01-28] MEDS: FUROSEMIDE 40 MG TABLET (FP) PO SCH ×3 (10:40→15:31)
[2020-01-28] MEDS: PANTOPRAZOLE 40 MG TABLET PO SCH ×3 (10:40→15:31)
[2020-01-28] MEDS: IRON POLYSACCHARIDES 150 MG CAPSULE PO SCH ×3 (10:41→15:32)
[2020-01-28] MEDS: CYANOCOBALAMIN (VITAMIN B-12) 1000 MCG/1 ML VIAL IM SCH (10:41)
[2020-01-28] MEDS: MINERAL OIL/PET HY-PHL TOPICAL OINTMENT 454 GM JAR TP SCH (10:41)
--- NOTE | 2020-01-28 13:14 | PN ---
Progress Note, Physician History of Present Illness: Pt seen and examined. He is agitated today. - Current Medication List Current Medications: Active Medications Acetaminophen (Tylenol -) 650 mg PO Q6H PRN PRN Reason: PAIN LEVEL 1-5 Apixaban (Eliquis -) 2.5 mg PO BID [facility] Last Admin: 01/27/20 21:11 Dose: 2.5 mg Documented by: Colchicine (Colcrys) 0.6 mg PO DAILY [facility] Last Admin: 01/28/20 10:47 Dose: Not Given Documented by: Cyanocobalamin (Vitamin B12 Injection -) 1,000 mcg IM DAILY [facility] Last Admin: 01/28/20 10:41 Dose: 1,000 mcg Documented by: Emollient Ointment (Aquaphor -) 1 applic TP DAILY [facility] Last Admin: 01/28/20 10:41 Dose: Not Given Documented by: Fludrocortisone Acetate (Florinef -) 0.1 mg PO DAILY [facility] Last Admin: 01/28/20 10:47 Dose: Not Given Documented by: Furosemide (Lasix -) 40 mg PO DAILY [facility] Last Admin: 01/28/20 10:46 Dose: Not Given Documented by: Oxycodone HCl (Roxicodone -) 5 mg PO Q6H PRN PRN Reason: PAIN LEVEL 6-10 Pantoprazole Sodium (Protonix -) 40 mg PO DAILY [facility] Last Admin: 01/28/20 10:47 Dose: Not Given Documented by: Polysaccharide Iron Complex (Niferex-150 -) 150 mg PO DAILY [facility] Last Admin: 01/28/20 10:47 Dose: Not Given Documented by: Prednisone (Deltasone -) 10 mg PO DAILY [facility] Last Admin: 01/28/20 10:47 Dose: Not Given Documented by: - Objective Vital Signs: Vital Signs Temperature 97.9 F 01/27/20 21:56 Pulse Rate 60 01/27/20 21:56 Respiratory Rate 20 01/28/20 09:00 Blood Pressure 140/75 01/27/20 21:56 O2 Sat by Pulse Oximetry (%) 100 01/28/20 00:00 Constitutional: Yes: Anxious Eyes: Yes: Conjunctiva Clear HENT: Yes: Atraumatic Neck: Yes: Supple Cardiovascular: Yes: S1, S2 Respiratory: Yes: CTA Bilaterally Gastrointestinal: Yes: Soft Genitourinary: Yes: WNL Musculoskeletal: Yes: WNL Edema: Yes Edema: LLE: Trace, RLE: Trace Wound/Incision: Yes: Dressing Dry and Intact Psychiatric: Yes: Agitated Labs: CBC, BMP 01/28/20 07:34 01/28/20 07:34 INR, PTT INR 1.29 (0.83-1.09) H 01/25/20 07:30 Assessment/Plan Current Medications Generic Name Dose Route Start Last Admin Trade Name Aliyah PRN Reason Stop Dose Admin Acetaminophen 650 mg 01/24/20 22:01 Tylenol - PO Q6H PRN PAIN LEVEL 1-5 Apixaban 2.5 mg 01/24/20 22:00 01/27/20 21:11 Eliquis - PO 2.5 mg BID [facility] Administration Colchicine 0.6 mg 01/25/20 10:00 01/28/20 10:47 Colcrys PO Not Given DAILY [facility] Cyanocobalamin 1,000 mcg 01/25/20 13:45 01/28/20 10:41 Vitamin B12 Injection - IM 1,000 mcg DAILY [facility] Administration Emollient Ointment 1 applic 01/28/20 10:00 01/28/20 10:41 Aquaphor - TP Not Given DAILY [facility] Fludrocortisone Acetate 0.1 mg 01/25/20 10:00 01/28/20 10:47 Florinef - PO Not Given DAILY [facility] Furosemide 40 mg 01/25/20 10:00 01/28/20 10:46 Lasix - PO Not Given DAILY [facility] Oxycodone HCl 5 mg 01/24/20 22:01 Roxicodone - PO Q6H PRN PAIN LEVEL 6-10 Pantoprazole Sodium 40 mg 01/25/20 10:15 01/28/20 10:47 Protonix - PO Not Given DAILY [facility] Polysaccharide Iron Complex 150 mg 01/26/20 10:00 01/28/20 10:47 Niferex-150 - PO Not Given DAILY [facility] Prednisone 10 mg 01/25/20 10:00 01/28/20 10:47 Deltasone - PO Not Given DAILY [facility] Impression 1. CKD 2. chf 3. anemia 4. lower ext wounds 5. a-fib 6. gout Plan - cont with lasix - 2 gram sodium diet - wound care - psych eval - discussed with nurse - avoid nsaids - avoid nephrotoxins
--- NOTE | 2020-01-28 14:08 | CONSULT ---
- Consultation REQUESTING PROVIDER: CONSULT REQUEST: We have been asked to surgically evaluate this patient for chronic leg wounds. Hospitalist:Mike Valerio HISTORY OF PRESENT ILLNESS: The patient is a 59 yo male who presented to the ER for admission from [facility] for a low H&H. He denies any dizziness, CP or SOB. He has had chronic lower extremity wounds for many years. Wound care exams and photos from . Currently he hasn't been to the wound clinic because he has been in the nursing facility. They change his dressing there daily and also had a VNS service before. PMHx: DM, nicotine dependence, labile mood, paranoia, a fib on AC, gout, lymphedema PSHx: denies Home Medications Medication Instructions Recorded Furosemide [Lasix] 40 mg PO DAILY 06/24/16 Allopurinol 300 mg PO DAILY 06/07/18 Folic Acid 1 mg PO DAILY 06/07/18 Aspirin [ASA -] 81 mg PO DAILY #30 tab.chew 06/23/18 Ferric Citrate [Auryxia] 210 mg PO BID 02/15/19 Carvedilol [Coreg -] 6.25 mg PO BID #60 tablet 02/22/19 Isosorbide Mononitrate [Imdur -] 30 mg PO DAILY #30 tab.sr.24h 02/22/19 hydrALAZINE HCL [Apresoline -] 10 mg PO BID #60 tablet 02/22/19 Sodium Zirconium Cyclosilicate 10 gm PO MOWEFR #25 powd.pack 02/24/19 [Lokelma] Tamsulosin HCl 0.4 mg PO HS #30 capsule 02/24/19 Allopurinol 300 mg PO DAILY 04/12/19 Ferrous Sulfate 325 mg PO DAILY 04/12/19 Multivitamin with Iron 1 tab PO DAILY 04/12/19 Allergies Allergy/AdvReac Type Severity Reaction Status Date / Time Egg Derived Allergy Unknown Verified 01/24/20 17:47 Geary And Derivatives Allergy Verified 01/24/20 17:47 orange juice Allergy Verified 01/26/20 13:06 lactose AdvReac Verified 01/24/20 17:47 chocolate Allergy Uncoded 01/26/20 13:06 REVIEW OF SYSTEMS: CONSTITUTIONAL: Absent: fever, chills CARDIOVASCULAR: Absent: chest pain, syncope RESPIRATORY: Absent: cough, shortness of breath PHYSICAL EXAM: GENERAL: Awake, alert, and fully oriented, in no acute distress. LOWER EXTREMITIES: RLE 2+DP pulses, warm, well-perfused. RLE-lateral aspect wound 10 x 7 cm with pink graulation base with some fibrinous material slight foul odor. LLE: triphasic pulse with doppler. legs with multiple small ulcers approximately 1 x 1cm or 1 x 2 cm. no foul odor or edema. NEUROLOGICAL: Normal speech, gait not observed. PSYCH: Cooperative. Good eye contact. Appropriate mood and affect. Laboratory Tests 01/25/20 01/25/20 07:30 07:30 WBC 6.0 Hgb 6.4 L* Hct 20.5 L BUN 74.5 H Creatinine 2.0 H Vital Signs Temperature 97.8 F 01/28/20 13:18 Pulse Rate 80 01/28/20 13:18 Respiratory Rate 20 01/28/20 13:18 Blood Pressure 118/70 01/28/20 13:18 O2 Sat by Pulse Oximetry (%) 100 01/28/20 00:00 Lab Results WBC 6.3 K/mm3 (4.0-10.0) 01/28/20 07:34 RBC 2.86 M/mm3 (4.00-5.60) L 01/28/20 07:34 Hgb 7.1 GM/dL (11.7-16.9) L 01/28/20 07:34 Hct 22.6 % (35.4-49) L 01/28/20 07:34 MCV 78.9 fl (80-96) L 01/28/20 07:34 MCHC 31.4 g/dl (32.0-35.9) L 01/28/20 07:34 RDW 18.1 % (11.9-15.9) H 01/28/20 07:34 Plt Count 212 K/MM3 (134-434) 01/28/20 07:34 INR 1.29 (0.83-1.09) H 01/25/20 07:30 Sodium 142 mmol/L (136-145) 01/28/20 07:34 Potassium 4.6 mmol/L (3.5-5.1) 01/28/20 07:34 Chloride 113 mmol/L (98-107) H 01/28/20 07:34 Carbon Dioxide 25 mmol/L (21-32) 01/28/20 07:34 Anion Gap 4 MMOL/L (8-16) L 01/28/20 07:34 BUN 66.7 mg/dL (7-18) H 01/28/20 07:34 Creatinine 2.1 mg/dL (0.55-1.3) H 01/28/20 07:34 Random Glucose 76 mg/dL (74-106) 01/28/20 07:34 Calcium 7.3 mg/dL (8.5-10.1) L 01/28/20 07:34 Blood Type B POSITIVE 01/24/20 18:40 Antibody Screen Negative 01/24/20 18:40 Problem List - Problems (1) Venous stasis ulcers of both lower extremities Assessment/Plan: Pt with RLE ulcer otherwise b/l extremtites with minimal open wounds. Recommend santyl to RLE to clean the wound base. Aquaphor to moisten skin and apply kerlix/brook wraps from toe to knee b/l to apply compression. No surgical intervention needed. Recommend to f/u with Dr. Eric in the wound clinic as needed D/w Dr. Eric Problems reviewed: Yes Code(s): I83.019 - VARICOSE VEINS OF RIGHT LOWER EXTREMITY W ULCER OF UNSP SITE; I83.029 - VARICOSE VEINS OF LEFT LOWER EXTREMITY W ULCER OF UNSP SITE
[2020-01-28] MEDS: COLLAGENASE CLOSTRIDIUM HIST. 30 GRAMS TUBE TP SCH (15:32)
--- NOTE | 2020-01-29 07:30 | PN.GI ---
GI Progress Note Subjective: NO NEW COMPLAINTS - DOING OKAY TODAY ; NO REPORT OF MELENA / BRBR - Objective Vital Signs: Vital Signs Temperature 97.9 F 01/29/20 06:00 Pulse Rate 74 01/29/20 06:00 Respiratory Rate 20 01/29/20 06:00 Blood Pressure 133/89 01/29/20 06:00 O2 Sat by Pulse Oximetry (%) 98 01/29/20 06:00 Constitutional: Well Nourished, No Distress, Calm Cardiovascular: Yes: WNL, Regular Rate and Rhythm Respiratory: Yes: WNL, Regular, CTA Bilaterally Gastrointestinal Inspection: Yes: WNL ...Auscultate: Yes: Normoactive Bowel Sounds Extremities: Yes: Other (WOUNDS NOTED) Labs: CBC, BMP 01/28/20 07:34 01/28/20 07:34 INR, PTT INR 1.29 (0.83-1.09) H 01/25/20 07:30 Problem List - Problems (1) Anemia Assessment/Plan: MULTIFACTORIAL ETIOLOGY OF HIS ANEMIA ONCE MEDICALLY OPTIMIZED ENDOSCOPIC EVALUATION MAY BE SCHEDULED - HE WILL NEED TO BE OFF ELIQUIS FOR 72 HOURS PRIOR TO PROCEDURE. Code(s): D64.9 - ANEMIA, UNSPECIFIED Qualifiers: Anemia type: unspecified type Qualified Code(s): D64.9 - Anemia, unspecified
--- NOTE | 2020-01-29 07:41 | PN ---
Progress Note, Physician Chief Complaint: AWAKE ALERT FEELS GOOD TODAY AGREES TO GI WORKUP - Current Medication List Current Medications: Active Medications Acetaminophen (Tylenol -) 650 mg PO Q6H PRN PRN Reason: PAIN LEVEL 1-5 Apixaban (Eliquis -) 2.5 mg PO BID [facility] Last Admin: 01/27/20 21:11 Dose: 2.5 mg Documented by: Colchicine (Colcrys) 0.6 mg PO DAILY [facility] Last Admin: 01/28/20 15:32 Dose: 0.6 mg Documented by: Collagenase (Santyl -) 1 applic TP DAILY [facility]; Protocol Last Admin: 01/28/20 15:32 Dose: 1 applic Documented by: Cyanocobalamin (Vitamin B12 Injection -) 1,000 mcg IM DAILY [facility] Last Admin: 01/28/20 10:41 Dose: 1,000 mcg Documented by: Emollient Ointment (Aquaphor -) 1 applic TP DAILY [facility] Last Admin: 01/28/20 10:41 Dose: Not Given Documented by: Fludrocortisone Acetate (Florinef -) 0.1 mg PO DAILY [facility] Last Admin: 01/28/20 15:32 Dose: 0.1 mg Documented by: Furosemide (Lasix -) 40 mg PO DAILY [facility] Last Admin: 01/28/20 15:31 Dose: 40 mg Documented by: Oxycodone HCl (Roxicodone -) 5 mg PO Q6H PRN PRN Reason: PAIN LEVEL 6-10 Pantoprazole Sodium (Protonix -) 40 mg PO DAILY [facility] Last Admin: 01/28/20 15:31 Dose: 40 mg Documented by: Polysaccharide Iron Complex (Niferex-150 -) 150 mg PO DAILY [facility] Last Admin: 01/28/20 15:32 Dose: 150 mg Documented by: Prednisone (Deltasone -) 10 mg PO DAILY [facility] Last Admin: 01/28/20 15:32 Dose: 10 mg Documented by: - Objective Vital Signs: Vital Signs Temperature 97.9 F 01/29/20 06:00 Pulse Rate 74 01/29/20 06:00 Respiratory Rate 20 01/29/20 06:00 Blood Pressure 133/89 01/29/20 06:00 O2 Sat by Pulse Oximetry (%) 98 01/29/20 06:00 Constitutional: Yes: Mild Distress Cardiovascular: Yes: Pulse Irregular Respiratory: Yes: Regular Gastrointestinal: Yes: Soft Genitourinary: Yes: Incontinence Musculoskeletal: Yes: Muscle Weakness Extremities: Yes: Erythema Integumentary: Yes: Erythema, Pressure Ulcer, Rash, Venous Stasis Changes Wound/Incision: Yes: Dressing Dry and Intact, Unapproximated. No: Excoriated Neurological: Yes: Pre-Existing Deficit ...Motor Strength: LLE, RLE Psychiatric: Yes: Other Labs: CBC, BMP 01/28/20 07:34 01/28/20 07:34 INR, PTT INR 1.29 (0.83-1.09) H 01/25/20 07:30 Problem List - Problems (1) CKD (chronic kidney disease) Code(s): N18.9 - CHRONIC KIDNEY DISEASE, UNSPECIFIED (2) Depressed affect Code(s): R45.89 - OTHER SYMPTOMS AND SIGNS INVOLVING EMOTIONAL STATE (3) Severe depression Code(s): F32.2 - MAJOR DEPRESSV DISORD, SINGLE EPSD, SEV W/O PSYCH FEATURES (4) Anemia Code(s): D64.9 - ANEMIA, UNSPECIFIED Qualifiers: Anemia type: unspecified type Qualified Code(s): D64.9 - Anemia, unspecified (5) Renal insufficiency Code(s): N28.9 - DISORDER OF KIDNEY AND URETER, UNSPECIFIED (6) Degenerative joint disease of knee, left Code(s): M17.12 - UNILATERAL PRIMARY OSTEOARTHRITIS, LEFT KNEE Qualifiers: Osteoarthritis type: unspecified Qualified Code(s): M17.12 - Unilateral primary osteoarthritis, left knee (7) Dilated aortic root Code(s): I77.810 - THORACIC AORTIC ECTASIA (8) Iron deficiency anemia Code(s): D50.9 - IRON DEFICIENCY ANEMIA, UNSPECIFIED (9) Paroxysmal atrial fibrillation with rapid ventricular response Code(s): I48.0 - PAROXYSMAL ATRIAL FIBRILLATION (10) Bilateral lower leg cellulitis Code(s): L03.116 - CELLULITIS OF LEFT LOWER LIMB; L03.115 - CELLULITIS OF RIGHT LOWER LIMB Assessment/Plan I SPOKE WITH MARCIA THE PATIENT'S AND THE MOM MIN [phone] THEY ARE IN AGREEMENT WITH AN UPPER AND LOWER GI WORKUP WITH POSSIBLE ENDOSCOPY/COLONOSCOPY. I EXPLAINED THE RISKS OF SUDDEN CARDIAC , CVA, INFECTIONS AND PERFORATIONS OF THE GI TRACT AND THEY FEEL THE RISK OUTWEIGHS THE BENEFIT. NURSE MATSON WITNESSED THE CONVERSATION.MIN THE MOM IS THE HEALTH CARE PROXY. WILL CONFIRM THAT MOM IS HCP. PATIENT IS ALSO ABLE TO MAKE HIS OWN DECISIONS AND IS IN AGREEMENT TO A COLONOSCOPY/EGD TRANSFUSE NEEDED [facility] WOUND [facility]ARE [facility] PA CALLED FOR EVAL HEME/ONC AND GI EVAL APPRECIATED
[2020-01-29 08:03] LABS: BASO % 1.1 % (0-2.0); EOS % 2.4 % (0-4.5); HEMATOCRIT 23.1 % (35.4-49); HEMOGLOBIN 7.2 GM/dL (11.7-16.9); LYMPH % 13.9 % (8-40); MCH 24.4 pg (25.7-33.7); MEAN CELL VOLUME 78.8 fl (80-96); MEAN PLT VOLUME 9.1 fl (7.5-11.1); MONO % 11.3 % (3.8-10.2); NEUT % 71.3 % (42.8-82.8); PLATELET COUNT 218 K/MM3 (134-434); RBC 2.93 M/mm3 (4.00-5.60); RDW 18.6 % (11.9-15.9); WHITE BLOOD COUNT 6.1 K/mm3 (4.0-10.0)
[2020-01-29 08:39] LABS: BLOOD UREA NITROGEN 61.4 mg/dL (7-18); CALCIUM 7.6 mg/dL (8.5-10.1); POTASSIUM 4.4 mmol/L (3.5-5.1)
[2020-01-29 08:43] LABS: BILIRUBIN,TOTAL 0.3 mg/dL (0.2-1); CREATININE 1.9 mg/dL (0.55-1.3); TOT PROT 7.4 g/dl (6.4-8.2)
[2020-01-29] MEDS ORDERED: PT OWN MED DRAWER 7, Y5N ONE (10:30)
[2020-01-29] MEDS: COLCHICINE 0.6 MG TAB PO SCH (11:11)
[2020-01-29] MEDS: PANTOPRAZOLE 40 MG TABLET PO SCH (11:11)
[2020-01-29] MEDS: FUROSEMIDE 40 MG TABLET (FP) PO SCH (11:11)
[2020-01-29] MEDS: predniSONE 10 MG TABLET (UD) PO SCH (11:12)
[2020-01-29] MEDS: FLUDROCORTISONE ACETATE 0.1 MG TABLET (FP) PO SCH (11:12)
[2020-01-29] MEDS: CYANOCOBALAMIN (VITAMIN B-12) 1000 MCG/1 ML VIAL IM SCH (11:12)
[2020-01-29] MEDS: IRON POLYSACCHARIDES 150 MG CAPSULE PO SCH (11:12)
--- NOTE | 2020-01-29 12:45 | PN ---
Progress Note, Physician History of Present Illness: Pt seen and examined at bedside. He is awake and alert. He is calm and pleasant today. - Current Medication List Current Medications: Active Medications Acetaminophen (Tylenol -) 650 mg PO Q6H PRN PRN Reason: PAIN LEVEL 1-5 Apixaban (Eliquis -) 2.5 mg PO BID [facility] Last Admin: 01/27/20 21:11 Dose: 2.5 mg Documented by: Colchicine (Colcrys) 0.6 mg PO DAILY [facility] Last Admin: 01/29/20 11:11 Dose: 0.6 mg Documented by: Collagenase (Santyl -) 1 applic TP DAILY [facility]; Protocol Last Admin: 01/28/20 15:32 Dose: 1 applic Documented by: Cyanocobalamin (Vitamin B12 Injection -) 1,000 mcg IM DAILY [facility] Last Admin: 01/29/20 11:12 Dose: 1,000 mcg Documented by: Emollient Ointment (Aquaphor -) 1 applic TP DAILY [facility] Last Admin: 01/28/20 10:41 Dose: Not Given Documented by: Fludrocortisone Acetate (Florinef -) 0.1 mg PO DAILY [facility] Last Admin: 01/29/20 11:12 Dose: 0.1 mg Documented by: Furosemide (Lasix -) 40 mg PO DAILY [facility] Last Admin: 01/29/20 11:11 Dose: 40 mg Documented by: Oxycodone HCl (Roxicodone -) 5 mg PO Q6H PRN PRN Reason: PAIN LEVEL 6-10 Pantoprazole Sodium (Protonix -) 40 mg PO DAILY [facility] Last Admin: 01/29/20 11:11 Dose: 40 mg Documented by: Polysaccharide Iron Complex (Niferex-150 -) 150 mg PO DAILY [facility] Last Admin: 01/29/20 11:12 Dose: 150 mg Documented by: Prednisone (Deltasone -) 10 mg PO DAILY [facility] Last Admin: 01/29/20 11:12 Dose: 10 mg Documented by: - Objective Vital Signs: Vital Signs Temperature 98.0 F 01/29/20 09:11 Pulse Rate 76 01/29/20 09:11 Respiratory Rate 18 01/29/20 09:11 Blood Pressure 120/88 01/29/20 09:11 O2 Sat by Pulse Oximetry (%) 97 01/29/20 09:11 Constitutional: Yes: Calm Eyes: Yes: Conjunctiva Clear HENT: Yes: Atraumatic Neck: Yes: Supple Cardiovascular: Yes: S1, S2 Respiratory: Yes: CTA Bilaterally Gastrointestinal: Yes: Soft Genitourinary: Yes: WNL Musculoskeletal: Yes: WNL Edema: No Neurological: Yes: Oriented Psychiatric: Yes: Oriented Labs: CBC, BMP 01/29/20 07:05 01/29/20 07:05 INR, PTT INR 1.29 (0.83-1.09) H 01/25/20 07:30 Assessment/Plan Current Medications Generic Name Dose Route Start Last Admin Trade Name Freq PRN Reason Stop Dose Admin Acetaminophen 650 mg 01/24/20 22:01 Tylenol - PO Q6H PRN PAIN LEVEL 1-5 Apixaban 2.5 mg 01/24/20 22:00 01/27/20 21:11 Eliquis - PO 2.5 mg BID [facility] Administration Colchicine 0.6 mg 01/25/20 10:00 01/29/20 11:11 Colcrys PO 0.6 mg DAILY [facility] Administration Collagenase 1 applic 01/28/20 14:15 01/28/20 15:32 Santyl - TP 1 applic DAILY [facility] Administration Protocol Cyanocobalamin 1,000 mcg 01/25/20 13:45 01/29/20 11:12 Vitamin B12 Injection - IM 1,000 mcg DAILY [facility] Administration Emollient Ointment 1 applic 01/28/20 10:00 01/28/20 10:41 Aquaphor - TP Not Given DAILY [facility] Fludrocortisone Acetate 0.1 mg 01/25/20 10:00 01/29/20 11:12 Florinef - PO 0.1 mg DAILY [facility] Administration Furosemide 40 mg 01/25/20 10:00 01/29/20 11:11 Lasix - PO 40 mg DAILY [facility] Administration Oxycodone HCl 5 mg 01/24/20 22:01 Roxicodone - PO Q6H PRN PAIN LEVEL 6-10 Pantoprazole Sodium 40 mg 01/25/20 10:15 01/29/20 11:11 Protonix - PO 40 mg DAILY [facility] Administration Polysaccharide Iron Complex 150 mg 01/26/20 10:00 01/29/20 11:12 Niferex-150 - PO 150 mg DAILY [facility] Administration Prednisone 10 mg 01/25/20 10:00 01/29/20 11:12 Deltasone - PO 10 mg DAILY [facility] Administration Impression 1. CKD 2. chf 3. anemia 4. lower ext wounds 5. a-fib 6. gout Plan - renal function is stable - cont wound care - cont lasix - volume status is stable - avoid nsaids - avoid nephrotoxins
--- NOTE | 2020-01-29 15:04 | EKG ---
Test Reason : Blood Pressure : / mmHG Vent. Rate : 068 BPM Atrial Rate : 068 BPM P-R Int : 214 ms QRS Dur : 124 ms QT Int : 454 ms P-R-T Axes : 041 -54 121 degrees QTc Int : 482 ms SINUS RHYTHM WITH 1ST DEGREE A-V BLOCK WITH OCCASIONAL PREMATURE VENTRICULAR COMPLEXES AND PREMATURE ATRIAL COMPLEXES RIGHT BUNDLE BRANCH BLOCK LEFT ANTERIOR FASCICULAR BLOCK BIFASCICULAR BLOCK T WAVE ABNORMALITY, CONSIDER LATERAL ISCHEMIA ABNORMAL ECG WHEN COMPARED WITH ECG OF 15-FEB-2019 09:56, SINUS RHYTHM HAS REPLACED ATRIAL FIBRILLATION VENT. RATE HAS DECREASED BY 42 BPM (RBBB AND LEFT ANTERIOR FASCICULAR BLOCK) IS NOW PRESENT MINIMAL CRITERIA FOR ANTERIOR INFARCT ARE NO LONGER PRESENT Confirmed by MD Uziel, Mendoza ([id number]) on 01/29/2020 3:04:40 PM Referred By: Confirmed By:Mendoza Triplett MD
[2020-01-29] MEDS: COLLAGENASE CLOSTRIDIUM HIST. 30 GRAMS TUBE TP SCH (15:16)
[2020-01-29] MEDS: MINERAL OIL/PET HY-PHL TOPICAL OINTMENT 454 GM JAR TP SCH (15:16)
--- NOTE | 2020-01-30 08:46 | PN ---
Progress Note, Physician Chief Complaint: SPOKE WITH DR Dipika Ritchie COLONOCOPY SCHEDULED FOR TOMORROW WILL BE ON CLEAR DIET TODAY WITH BOWEL PREP PATIENT IS IN AGREEMENT - Current Medication List Current Medications: Active Medications Acetaminophen (Tylenol -) 650 mg PO Q6H PRN PRN Reason: PAIN LEVEL 1-5 Apixaban (Eliquis -) 2.5 mg PO BID [facility] Last Admin: 01/27/20 21:11 Dose: 2.5 mg Documented by: Bisacodyl (Dulcolax -) 20 mg PO ONCE ONE Stop: 01/30/20 16:01 Colchicine (Colcrys) 0.6 mg PO DAILY [facility] Last Admin: 01/29/20 11:11 Dose: 0.6 mg Documented by: Collagenase (Santyl -) 1 applic TP DAILY [facility]; Protocol Last Admin: 01/29/20 15:16 Dose: 1 applic Documented by: Cyanocobalamin (Vitamin B12 Injection -) 1,000 mcg IM DAILY [facility] Last Admin: 01/29/20 11:12 Dose: 1,000 mcg Documented by: Emollient Ointment (Aquaphor -) 1 applic TP DAILY [facility] Last Admin: 01/29/20 15:16 Dose: 1 applic Documented by: Fludrocortisone Acetate (Florinef -) 0.1 mg PO DAILY [facility] Last Admin: 01/29/20 11:12 Dose: 0.1 mg Documented by: Furosemide (Lasix -) 40 mg PO DAILY [facility] Last Admin: 01/29/20 11:11 Dose: 40 mg Documented by: Oxycodone HCl (Roxicodone -) 5 mg PO Q6H PRN PRN Reason: PAIN LEVEL 6-10 Pantoprazole Sodium (Protonix -) 40 mg PO DAILY [facility] Last Admin: 01/29/20 11:11 Dose: 40 mg Documented by: Polyethylene Glycol/Electrolytes (Golytely Solution -) 4,000 ml PO ONCE ONE Stop: 01/30/20 17:01 Polysaccharide Iron Complex (Niferex-150 -) 150 mg PO DAILY [facility] Last Admin: 01/29/20 11:12 Dose: 150 mg Documented by: Prednisone (Deltasone -) 10 mg PO DAILY [facility] Last Admin: 01/29/20 11:12 Dose: 10 mg Documented by: - Objective Vital Signs: Vital Signs Temperature 97.5 F L 01/29/20 21:38 Pulse Rate 78 01/29/20 21:38 Respiratory Rate 20 01/29/20 21:38 Blood Pressure 135/81 01/30/20 07:41 O2 Sat by Pulse Oximetry (%) 96 01/30/20 07:41 Constitutional: Yes: Mild Distress Cardiovascular: Yes: Pulse Irregular Respiratory: Yes: Regular Gastrointestinal: Yes: Soft Genitourinary: Yes: Other Musculoskeletal: Yes: Muscle Weakness Neurological: Yes: Pre-Existing Deficit Psychiatric: Yes: Other Labs: CBC, BMP 01/29/20 07:05 01/29/20 07:05 INR, PTT INR 1.29 (0.83-1.09) H 01/25/20 07:30 Problem List - Problems (1) CKD (chronic kidney disease) Code(s): N18.9 - CHRONIC KIDNEY DISEASE, UNSPECIFIED (2) Depressed affect Code(s): R45.89 - OTHER SYMPTOMS AND SIGNS INVOLVING EMOTIONAL STATE (3) Severe depression Code(s): F32.2 - MAJOR DEPRESSV DISORD, SINGLE EPSD, SEV W/O PSYCH FEATURES (4) Anemia Code(s): D64.9 - ANEMIA, UNSPECIFIED Qualifiers: Anemia type: unspecified type Qualified Code(s): D64.9 - Anemia, unspecified (5) Renal insufficiency Code(s): N28.9 - DISORDER OF KIDNEY AND URETER, UNSPECIFIED (6) Degenerative joint disease of knee, left Code(s): M17.12 - UNILATERAL PRIMARY OSTEOARTHRITIS, LEFT KNEE Qualifiers: Osteoarthritis type: unspecified Qualified Code(s): M17.12 - Unilateral primary osteoarthritis, left knee (7) Dilated aortic root Code(s): I77.810 - THORACIC AORTIC ECTASIA (8) Iron deficiency anemia Code(s): D50.9 - IRON DEFICIENCY ANEMIA, UNSPECIFIED (9) Paroxysmal atrial fibrillation with rapid ventricular response Code(s): I48.0 - PAROXYSMAL ATRIAL FIBRILLATION (10) Bilateral lower leg cellulitis Code(s): L03.116 - CELLULITIS OF LEFT LOWER LIMB; L03.115 - CELLULITIS OF RIGHT LOWER LIMB Assessment/Plan CLEAR DIET TODAY BOWEL PREP PATIENT AGREES TO GI PROCEDURES I SPOKE WITH MARCIA THE PATIENT'S AND THE MOM MIN [phone] THEY ARE IN AGREEMENT WITH AN UPPER AND LOWER GI WORKUP WITH POSSIBLE ENDOSCOPY/COLONOSCOPY. I EXPLAINED THE RISKS OF SUDDEN CARDIAC , CVA, INFECTIONS AND PERFORATIONS OF THE GI TRACT AND THEY FEEL THE BENEFIT OUTWEIGHS THE RISK. NURSE MATSON WITNESSED THE CONVERSATION.MIN THE MOM IS THE HEALTH CARE PROXY. WILL CONFIRM THAT MOM IS HCP. PATIENT IS ALSO ABLE TO MAKE HIS OWN DECISIONS AND IS IN AGREEMENT TO A COLONOSCOPY/EGD TRANSFUSE NEEDED [facility] WOUND [facility]ARE [facility] PA CALLED FOR EVAL HEME/ONC AND GI EVAL APPRECIATED
[2020-01-30 10:01] LABS: HEMATOCRIT 26.5 % (35.4-49); HEMOGLOBIN 8.1 GM/dL (11.7-16.9); MCH 24.1 pg (25.7-33.7); MCHC 30.6 g/dl (32.0-35.9); MEAN CELL VOLUME 78.9 fl (80-96); MEAN PLT VOLUME 8.7 fl (7.5-11.1); PLATELET COUNT 236 K/MM3 (134-434); RBC 3.35 M/mm3 (4.00-5.60); RDW 18.2 % (11.9-15.9); WHITE BLOOD COUNT 6.5 K/mm3 (4.0-10.0)
[2020-01-30 10:26] LABS: BLOOD UREA NITROGEN 59.5 mg/dL (7-18); CALCIUM 7.8 mg/dL (8.5-10.1); CREATININE 1.8 mg/dL (0.55-1.3); POTASSIUM 4.1 mmol/L (3.5-5.1)
[2020-01-30] MEDS: IRON POLYSACCHARIDES 150 MG CAPSULE PO SCH (11:06)
[2020-01-30] MEDS: FUROSEMIDE 40 MG TABLET (FP) PO SCH (11:06)
[2020-01-30] MEDS: PANTOPRAZOLE 40 MG TABLET PO SCH (11:06)
[2020-01-30] MEDS: COLCHICINE 0.6 MG TAB PO SCH (11:07)
[2020-01-30] MEDS: predniSONE 10 MG TABLET (UD) PO SCH (11:07)
[2020-01-30] MEDS: CYANOCOBALAMIN (VITAMIN B-12) 1000 MCG/1 ML VIAL IM SCH (11:07)
[2020-01-30] MEDS: FLUDROCORTISONE ACETATE 0.1 MG TABLET (FP) PO SCH (11:07)
[2020-01-30] MEDS: COLLAGENASE CLOSTRIDIUM HIST. 30 GRAMS TUBE TP SCH (11:12)
[2020-01-30] MEDS: MINERAL OIL/PET HY-PHL TOPICAL OINTMENT 454 GM JAR TP SCH (11:13)
--- NOTE | 2020-01-30 15:58 | PN ---
Progress Note, Physician History of Present Illness: Pt seen and examined at bedside. He is awake and alert. He denies shortness of breath. - Current Medication List Current Medications: Active Medications Acetaminophen (Tylenol -) 650 mg PO Q6H PRN PRN Reason: PAIN LEVEL 1-5 Apixaban (Eliquis -) 2.5 mg PO BID [facility] Last Admin: 01/27/20 21:11 Dose: 2.5 mg Documented by: Bisacodyl (Dulcolax -) 20 mg PO ONCE ONE Stop: 01/30/20 16:01 Colchicine (Colcrys) 0.6 mg PO DAILY [facility] Last Admin: 01/30/20 11:07 Dose: 0.6 mg Documented by: Collagenase (Santyl -) 1 applic TP DAILY [facility]; Protocol Last Admin: 01/30/20 11:12 Dose: 1 applic Documented by: Cyanocobalamin (Vitamin B12 Injection -) 1,000 mcg IM DAILY [facility] Last Admin: 01/30/20 11:07 Dose: 1,000 mcg Documented by: Emollient Ointment (Aquaphor -) 1 applic TP DAILY [facility] Last Admin: 01/30/20 11:13 Dose: 1 applic Documented by: Fludrocortisone Acetate (Florinef -) 0.1 mg PO DAILY [facility] Last Admin: 01/30/20 11:07 Dose: 0.1 mg Documented by: Furosemide (Lasix -) 40 mg PO DAILY [facility] Last Admin: 01/30/20 11:06 Dose: 40 mg Documented by: Oxycodone HCl (Roxicodone -) 5 mg PO Q6H PRN PRN Reason: PAIN LEVEL 6-10 Pantoprazole Sodium (Protonix -) 40 mg PO DAILY [facility] Last Admin: 01/30/20 11:06 Dose: 40 mg Documented by: Polyethylene Glycol/Electrolytes (Golytely Solution -) 4,000 ml PO ONCE ONE Stop: 01/30/20 17:01 Polysaccharide Iron Complex (Niferex-150 -) 150 mg PO DAILY [facility] Last Admin: 01/30/20 11:06 Dose: 150 mg Documented by: Prednisone (Deltasone -) 10 mg PO DAILY [facility] Last Admin: 01/30/20 11:07 Dose: 10 mg Documented by: - Objective Vital Signs: Vital Signs Temperature 98.3 F 01/30/20 15:00 Pulse Rate 74 01/30/20 15:00 Respiratory Rate 20 01/30/20 15:00 Blood Pressure 127/76 01/30/20 15:00 O2 Sat by Pulse Oximetry (%) 96 01/30/20 15:00 Constitutional: Yes: Calm Eyes: Yes: Conjunctiva Clear HENT: Yes: Atraumatic Neck: Yes: Supple Cardiovascular: Yes: S1, S2 Respiratory: Yes: CTA Bilaterally Gastrointestinal: Yes: Normal Bowel Sounds, Soft Genitourinary: Yes: WNL Musculoskeletal: Yes: WNL Edema: Yes Edema: LLE: Trace, RLE: Trace Wound/Incision: Yes: Dressing Dry and Intact Neurological: Yes: Oriented Psychiatric: Yes: Oriented Labs: CBC, BMP 01/30/20 09:35 01/30/20 09:35 INR, PTT INR 1.29 (0.83-1.09) H 01/25/20 07:30 Assessment/Plan Current Medications Generic Name Dose Route Start Last Admin Trade Name Freq PRN Reason Stop Dose Admin Acetaminophen 650 mg 01/24/20 22:01 Tylenol - PO Q6H PRN PAIN LEVEL 1-5 Apixaban 2.5 mg 01/24/20 22:00 01/27/20 21:11 Eliquis - PO 2.5 mg BID [facility] Administration Bisacodyl 20 mg 01/30/20 16:00 Dulcolax - PO 01/30/20 16:01 ONCE ONE Colchicine 0.6 mg 01/25/20 10:00 01/30/20 11:07 Colcrys PO 0.6 mg DAILY [facility] Administration Collagenase 1 applic 01/28/20 14:15 01/30/20 11:12 Santyl - TP 1 applic DAILY [facility] Administration Protocol Cyanocobalamin 1,000 mcg 01/25/20 13:45 01/30/20 11:07 Vitamin B12 Injection - IM 1,000 mcg DAILY [facility] Administration Emollient Ointment 1 applic 01/28/20 10:00 01/30/20 11:13 Aquaphor - TP 1 applic DAILY [facility] Administration Fludrocortisone Acetate 0.1 mg 01/25/20 10:00 01/30/20 11:07 Florinef - PO 0.1 mg DAILY [facility] Administration Furosemide 40 mg 01/25/20 10:00 01/30/20 11:06 Lasix - PO 40 mg DAILY [facility] Administration Oxycodone HCl 5 mg 01/24/20 22:01 Roxicodone - PO Q6H PRN PAIN LEVEL 6-10 Pantoprazole Sodium 40 mg 01/25/20 10:15 01/30/20 11:06 Protonix - PO 40 mg DAILY [facility] Administration Polyethylene Glycol/Electrolytes 4,000 ml 01/30/20 17:00 Golytely Solution - PO 01/30/20 17:01 ONCE ONE Polysaccharide Iron Complex 150 mg 01/26/20 10:00 01/30/20 11:06 Niferex-150 - PO 150 mg DAILY [facility] Administration Prednisone 10 mg 01/25/20 10:00 01/30/20 11:07 Deltasone - PO 10 mg DAILY [facility] Administration Impression 1. CKD 2. chf 3. anemia 4. lower ext wounds 5. a-fib 6. 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
[2020-01-30] MEDS ORDERED: BISACODYL 5 MG TABLET.DR (FP) PO ONE (16:00)
[2020-01-30] MEDS ORDERED: PEG 3350/NA SULF BICARB CL/KCL 4000 ML SOLN.RECON PO ONE (17:00)
[2020-01-31] MEDS ORDERED: IRON SUCROSE INJECTION 300 MG in SODIUM CHLORIDE 235 ML IVPB ONE (06:08)
[2020-01-31 07:41] LABS: EOS % 3.7 % (0-4.5); HEMATOCRIT 23.7 % (35.4-49); HEMOGLOBIN 7.4 GM/dL (11.7-16.9); LYMPH % 17.7 % (8-40); MCH 24.4 pg (25.7-33.7); MCHC 31.2 g/dl (32.0-35.9); MEAN CELL VOLUME 78.3 fl (80-96); MEAN PLT VOLUME 8.7 fl (7.5-11.1); MONO % 10.4 % (3.8-10.2); NEUT % 67.2 % (42.8-82.8); PLATELET COUNT 214 K/MM3 (134-434); RBC 3.03 M/mm3 (4.00-5.60); RDW 18.6 % (11.9-15.9); WHITE BLOOD COUNT 6.2 K/mm3 (4.0-10.0)
[2020-01-31 08:09] LABS: POTASSIUM 3.9 mmol/L (3.5-5.1)
[2020-01-31 08:27] LABS: ALBUMIN 2.1 g/dl (3.4-5.0); BILIRUBIN,TOTAL 0.6 mg/dL (0.2-1); BLOOD UREA NITROGEN 51.9 mg/dL (7-18); CALCIUM 7.9 mg/dL (8.5-10.1); CREATININE 1.6 mg/dL (0.55-1.3); TOT PROT 7.4 g/dl (6.4-8.2)
[2020-01-31] MEDS ORDERED: PT OWN MED DRAWER 7, Y5N ONE ×2 (08:40→21:42)
[2020-01-31] MEDS: CYANOCOBALAMIN (VITAMIN B-12) 1000 MCG/1 ML VIAL IM SCH (09:34)
[2020-01-31] MEDS: PANTOPRAZOLE 40 MG TABLET PO SCH (10:23)
[2020-01-31] MEDS: COLCHICINE 0.6 MG TAB PO SCH (10:23)
[2020-01-31] MEDS: IRON POLYSACCHARIDES 150 MG CAPSULE PO SCH (10:23)
[2020-01-31] MEDS: predniSONE 10 MG TABLET (UD) PO SCH (10:23)
[2020-01-31] MEDS: FUROSEMIDE 40 MG TABLET (FP) PO SCH (10:23)
[2020-01-31] MEDS: FLUDROCORTISONE ACETATE 0.1 MG TABLET (FP) PO SCH (10:27)
--- NOTE | 2020-01-31 10:57 | PN ---
Progress Note, Physician Chief Complaint: Anemia History of Present Illness: 59 YO AA man with Mhx of HFrEF (30-35%), afib on AC, Gout, chronic leg wounds, primary adrenal insuf. and lymphedema, presented from [facility] after been found to have low Hg of 6.4. Pt denies dizziness, CP, palpitations, no LOC, no change in bowel habits, or urine habits, no change in color of stool. Pt recalls needing blood transfusion one year ago, but denies any bleeding. Pt npo, going for colonoscopy today Denies any pain or SOB - Current Medication List Current Medications: Active Medications Acetaminophen (Tylenol -) 650 mg PO Q6H PRN PRN Reason: PAIN LEVEL 1-5 Apixaban (Eliquis -) 2.5 mg PO BID [facility] Last Admin: 01/27/20 21:11 Dose: 2.5 mg Documented by: Colchicine (Colcrys) 0.6 mg PO DAILY [facility] Last Admin: 01/31/20 10:23 Dose: Not Given Documented by: Collagenase (Santyl -) 1 applic TP DAILY [facility]; Protocol Last Admin: 01/30/20 11:12 Dose: 1 applic Documented by: Cyanocobalamin (Vitamin B12 Injection -) 1,000 mcg IM DAILY [facility] Last Admin: 01/31/20 09:34 Dose: 1,000 mcg Documented by: Emollient Ointment (Aquaphor -) 1 applic TP DAILY [facility] Last Admin: 01/30/20 11:13 Dose: 1 applic Documented by: Fludrocortisone Acetate (Florinef -) 0.1 mg PO DAILY [facility] Last Admin: 01/31/20 10:27 Dose: Not Given Documented by: Furosemide (Lasix -) 40 mg PO DAILY [facility] Last Admin: 01/31/20 10:23 Dose: Not Given Documented by: Pantoprazole Sodium (Protonix -) 40 mg PO DAILY [facility] Last Admin: 01/31/20 10:23 Dose: Not Given Documented by: Polysaccharide Iron Complex (Niferex-150 -) 150 mg PO DAILY [facility] Last Admin: 01/31/20 10:23 Dose: Not Given Documented by: Prednisone (Deltasone -) 10 mg PO DAILY [facility] Last Admin: 01/31/20 10:23 Dose: Not Given Documented by: - Objective Vital Signs: Vital Signs Temperature 98.6 F 01/31/20 06:00 Pulse Rate 76 01/31/20 06:00 Respiratory Rate 20 01/31/20 06:00 Blood Pressure 130/72 01/31/20 06:00 O2 Sat by Pulse Oximetry (%) 97 01/30/20 22:40 Constitutional: Yes: Well Nourished, No Distress, Calm Cardiovascular: Yes: Regular Rate and Rhythm Respiratory: Yes: Regular, CTA Bilaterally Gastrointestinal: Yes: Normal Bowel Sounds, Soft Genitourinary: Yes: WNL Musculoskeletal: Yes: Muscle Weakness Extremities: Yes: WNL Edema: Yes (BLLE lymphedema) Peripheral Pulses WNL: Yes Wound/Incision: Yes: Dressing Dry and Intact (BLLE) Neurological: Yes: Alert, Oriented Psychiatric: Yes: Alert, Oriented Labs: CBC, BMP 01/31/20 07:00 01/31/20 07:00 INR, PTT INR 1.29 (0.83-1.09) H 01/25/20 07:30 Problem List - Problems (1) CKD (chronic kidney disease) Assessment/Plan: -Nephrology consult -Cr at baseline Problems reviewed: Yes Code(s): N18.9 - CHRONIC KIDNEY DISEASE, UNSPECIFIED (2) Severe depression Assessment/Plan: -Psychiatry + psychotherapy consult appreciated -Recommended risperidal 1mg po bid and depakote 250 mg po bid, which may be may titrated at later point. -Would start risperidal at lower dose to monitor effect along with depakote. Problems reviewed: Yes Code(s): F32.2 - MAJOR DEPRESSV DISORD, SINGLE EPSD, SEV W/O PSYCH FEATURES (3) Anemia Assessment/Plan: -Guaiac negative -Received 2 unit PRBC this admission -Iron % low -Received Injectafer this admission -B12 low, start cyanocobalamine 1000 mcg IM daily--> transition to 2500 mcg SL upon discharge -thyroid profile normal -Monitor trend -Transfuse only if Hg<7.0 to avoid fluid overload -For colonoscopy today -Resume Eliquis once hemodynamicaly stable Problems reviewed: Yes Code(s): D64.9 - ANEMIA, UNSPECIFIED Qualifiers: Anemia type: unspecified type Qualified Code(s): D64.9 - Anemia, unspecified Assessment/Plan See problem list
--- NOTE | 2020-01-31 12:45 | PN ---
Progress Note (short form) - Note Progress Note: EGD/Colon complete. Reports placed in the procedural section of the physical chart and will be scanned into [employer]. No source of anemia. Problem List - Problems (1) Anemia Code(s): D64.9 - ANEMIA, UNSPECIFIED Qualifiers: Anemia type: unspecified type Qualified Code(s): D64.9 - Anemia, unspecified
--- NOTE | 2020-01-31 13:48 | PN ---
Progress Note, Physician History of Present Illness: Pt seen and examined. NO great change in status. He is getting endoscopy today. - Current Medication List Current Medications: Active Medications Acetaminophen (Tylenol -) 650 mg PO Q6H PRN PRN Reason: PAIN LEVEL 1-5 Apixaban (Eliquis -) 2.5 mg PO BID [facility] Last Admin: 01/27/20 21:11 Dose: 2.5 mg Documented by: Colchicine (Colcrys) 0.6 mg PO DAILY [facility] Last Admin: 01/31/20 10:23 Dose: Not Given Documented by: Collagenase (Santyl -) 1 applic TP DAILY [facility]; Protocol Last Admin: 01/30/20 11:12 Dose: 1 applic Documented by: Cyanocobalamin (Vitamin B12 Injection -) 1,000 mcg IM DAILY [facility] Last Admin: 01/31/20 09:34 Dose: 1,000 mcg Documented by: Divalproex Sodium (Depakote -) 250 mg PO BID [facility] Emollient Ointment (Aquaphor -) 1 applic TP DAILY [facility] Last Admin: 01/30/20 11:13 Dose: 1 applic Documented by: Fludrocortisone Acetate (Florinef -) 0.1 mg PO DAILY [facility] Last Admin: 01/31/20 10:27 Dose: Not Given Documented by: Furosemide (Lasix -) 40 mg PO DAILY [facility] Last Admin: 01/31/20 10:23 Dose: Not Given Documented by: Pantoprazole Sodium (Protonix -) 40 mg PO DAILY [facility] Last Admin: 01/31/20 10:23 Dose: Not Given Documented by: Polysaccharide Iron Complex (Niferex-150 -) 150 mg PO DAILY [facility] Last Admin: 01/31/20 10:23 Dose: Not Given Documented by: Prednisone (Deltasone -) 10 mg PO DAILY [facility] Last Admin: 01/31/20 10:23 Dose: Not Given Documented by: Risperidone (Risperdal -) 0.25 mg PO BID [facility] - Objective Vital Signs: Vital Signs Temperature 97.9 F 01/31/20 12:50 Pulse Rate 71 01/31/20 13:20 Respiratory Rate 17 01/31/20 13:20 Blood Pressure 142/80 01/31/20 13:20 O2 Sat by Pulse Oximetry (%) 100 01/31/20 13:20 Constitutional: Yes: Calm Eyes: Yes: Conjunctiva Clear HENT: Yes: Atraumatic Neck: Yes: Supple Cardiovascular: Yes: S1, S2 Respiratory: Yes: CTA Bilaterally Gastrointestinal: Yes: Soft Genitourinary: Yes: WNL Musculoskeletal: Yes: WNL Edema: Yes Edema: LLE: Trace, RLE: Trace Wound/Incision: Yes: Dressing Dry and Intact Neurological: Yes: Oriented Labs: CBC, BMP 01/31/20 07:00 01/31/20 07:00 INR, PTT INR 1.29 (0.83-1.09) H 01/25/20 07:30 Assessment/Plan Current Medications Generic Name Dose Route Start Last Admin Trade Name Freq PRN Reason Stop Dose Admin Acetaminophen 650 mg 01/24/20 22:01 Tylenol - PO Q6H PRN PAIN LEVEL 1-5 Apixaban 2.5 mg 01/24/20 22:00 01/27/20 21:11 Eliquis - PO 2.5 mg BID [facility] Administration Colchicine 0.6 mg 01/25/20 10:00 01/31/20 10:23 Colcrys PO Not Given DAILY [facility] Collagenase 1 applic 01/28/20 14:15 01/30/20 11:12 Santyl - TP 1 applic DAILY [facility] Administration Protocol Cyanocobalamin 1,000 mcg 01/25/20 13:45 01/31/20 09:34 Vitamin B12 Injection - IM 1,000 mcg DAILY [facility] Administration Divalproex Sodium 250 mg 01/31/20 22:00 Depakote - PO BID [facility] Emollient Ointment 1 applic 01/28/20 10:00 01/30/20 11:13 Aquaphor - TP 1 applic DAILY [facility] Administration Fludrocortisone Acetate 0.1 mg 01/25/20 10:00 01/31/20 10:27 Florinef - PO Not Given DAILY [facility] Furosemide 40 mg 01/25/20 10:00 01/31/20 10:23 Lasix - PO Not Given DAILY [facility] Pantoprazole Sodium 40 mg 01/25/20 10:15 01/31/20 10:23 Protonix - PO Not Given DAILY [facility] Polysaccharide Iron Complex 150 mg 01/26/20 10:00 01/31/20 10:23 Niferex-150 - PO Not Given DAILY [facility] Prednisone 10 mg 01/25/20 10:00 01/31/20 10:23 Deltasone - PO Not Given DAILY [facility] Risperidone 0.25 mg 01/31/20 22:00 Risperdal - PO BID [facility] Impression 1. CKD 2. chf 3. anemia 4. lower ext wounds 5. a-fib 6. gout Plan - renal function stable - cont to monitor - avoid nsaids - follow endoscopy results
[2020-01-31] MEDS: COLLAGENASE CLOSTRIDIUM HIST. 30 GRAMS TUBE TP SCH (18:03)
[2020-01-31] MEDS: MINERAL OIL/PET HY-PHL TOPICAL OINTMENT 454 GM JAR TP SCH (18:03)
[2020-01-31] MEDS: risperiDONE 0.25 MG TABLET PO SCH (22:01)
[2020-01-31] MEDS: DIVALPROEX SODIUM 250 MG TABLET E.C. PO SCH (22:02)
[2020-02-01] MEDS ORDERED: PT OWN MED DRAWER 7, Y5N ONE ×2 (06:50→21:05)
[2020-02-01] MEDS: risperiDONE 0.25 MG TABLET PO SCH ×2 (09:57→21:34)
[2020-02-01] MEDS: predniSONE 10 MG TABLET (UD) PO SCH (09:57)
[2020-02-01] MEDS: MINERAL OIL/PET HY-PHL TOPICAL OINTMENT 454 GM JAR TP SCH (09:58)
[2020-02-01] MEDS: FUROSEMIDE 40 MG TABLET (FP) PO SCH (09:59)
[2020-02-01] MEDS: PANTOPRAZOLE 40 MG TABLET PO SCH (09:59)
[2020-02-01] MEDS: COLCHICINE 0.6 MG TAB PO SCH (10:00)
[2020-02-01] MEDS: FLUDROCORTISONE ACETATE 0.1 MG TABLET (FP) PO SCH (10:00)
[2020-02-01] MEDS: DIVALPROEX SODIUM 250 MG TABLET E.C. PO SCH ×2 (10:00→21:34)
[2020-02-01] MEDS: IRON POLYSACCHARIDES 150 MG CAPSULE PO SCH (10:01)
[2020-02-01] MEDS: COLLAGENASE CLOSTRIDIUM HIST. 30 GRAMS TUBE TP SCH (10:01)
[2020-02-01] MEDS: CYANOCOBALAMIN (VITAMIN B-12) 1000 MCG/1 ML VIAL IM SCH (10:02)
--- NOTE | 2020-02-01 16:23 | PN ---
Progress Note, Physician Chief Complaint: Anemia History of Present Illness: Previous notes and events reviewed awake and alert NAD Hg 7.4--received Venofer 300mg IVPB yesterday denies dizziness, chest pain - Current Medication List Current Medications: Active Medications Acetaminophen (Tylenol -) 650 mg PO Q6H PRN PRN Reason: PAIN LEVEL 1-5 Apixaban (Eliquis -) 2.5 mg PO BID [facility] Last Admin: 01/27/20 21:11 Dose: 2.5 mg Documented by: Colchicine (Colcrys) 0.6 mg PO DAILY [facility] Last Admin: 02/01/20 10:00 Dose: 0.6 mg Documented by: Collagenase (Santyl -) 1 applic TP DAILY [facility]; Protocol Last Admin: 02/01/20 10:01 Dose: 1 applic Documented by: Cyanocobalamin (Vitamin B12 Injection -) 1,000 mcg IM DAILY [facility] Last Admin: 02/01/20 10:02 Dose: 1,000 mcg Documented by: Divalproex Sodium (Depakote -) 250 mg PO BID [facility] Last Admin: 02/01/20 10:00 Dose: 250 mg Documented by: Emollient Ointment (Aquaphor -) 1 applic TP DAILY [facility] Last Admin: 02/01/20 09:58 Dose: 1 applic Documented by: Fludrocortisone Acetate (Florinef -) 0.1 mg PO DAILY [facility] Last Admin: 02/01/20 10:00 Dose: 0.1 mg Documented by: Furosemide (Lasix -) 40 mg PO DAILY [facility] Last Admin: 02/01/20 09:59 Dose: 40 mg Documented by: Pantoprazole Sodium (Protonix -) 40 mg PO DAILY [facility] Last Admin: 02/01/20 09:59 Dose: 40 mg Documented by: Polysaccharide Iron Complex (Niferex-150 -) 150 mg PO DAILY [facility] Last Admin: 02/01/20 10:01 Dose: 150 mg Documented by: Prednisone (Deltasone -) 10 mg PO DAILY [facility] Last Admin: 02/01/20 09:57 Dose: 10 mg Documented by: Risperidone (Risperdal -) 0.25 mg PO BID [facility] Last Admin: 02/01/20 09:57 Dose: 0.25 mg Documented by: - Objective Vital Signs: Vital Signs Temperature 97.6 F 02/01/20 14:00 Pulse Rate 77 02/01/20 14:00 Respiratory Rate 20 02/01/20 14:00 Blood Pressure 124/69 02/01/20 14:00 O2 Sat by Pulse Oximetry (%) 99 02/01/20 14:00 Constitutional: Yes: No Distress, Calm Eyes: Yes: Conjunctiva Clear HENT: Yes: Atraumatic Cardiovascular: Yes: Regular Rate and Rhythm Respiratory: Yes: Regular, CTA Bilaterally Gastrointestinal: Yes: Normal Bowel Sounds, Soft Musculoskeletal: Yes: Muscle Weakness Extremities: Yes: WNL Edema: Yes (b/l LE edema) Wound/Incision: Yes: Dressing Dry and Intact (b/l LE) Neurological: Yes: Alert, Oriented Psychiatric: Yes: Alert, Oriented Labs: CBC, BMP 01/31/20 07:00 01/31/20 07:00 INR, PTT INR 1.29 (0.83-1.09) H 01/25/20 07:30 Problem List - Problems (1) CKD (chronic kidney disease) Assessment/Plan: Renal on board BUN/Cr 51.9/1.6 monitor renal function Code(s): N18.9 - CHRONIC KIDNEY DISEASE, UNSPECIFIED (2) Severe depression Assessment/Plan: Depakote BID Risperdal BID Psychiatry consult Code(s): F32.2 - MAJOR DEPRESSV DISORD, SINGLE EPSD, SEV W/O PSYCH FEATURES (3) Anemia Assessment/Plan: Hg 7.4 Guaiac negative Iron Polysaccharide GI on board Received 2 unit PRBC this admission Low Iron and TIBC Venofer 300mg IVPB yesterday cyanocobalamine 1000 mcg IM Monitor Hg daily Transfuse only if Hg<7.0 to avoid fluid overload Colonoscopy done 01/31/20-no source of bleeding noted Resume Eliquis once hemodynamicaly stable Code(s): D64.9 - ANEMIA, UNSPECIFIED Qualifiers: Anemia type: unspecified type Qualified Code(s): D64.9 - Anemia, unspecified Assessment/Plan see problem list
[2020-02-02 09:34] LABS: HEMATOCRIT 24.7 % (35.4-49); HEMOGLOBIN 7.7 GM/dL (11.7-16.9); MCH 25.1 pg (25.7-33.7); MCHC 31.1 g/dl (32.0-35.9); MEAN CELL VOLUME 80.9 fl (80-96); MEAN PLT VOLUME 9.2 fl (7.5-11.1); PLATELET COUNT 192 K/MM3 (134-434); POTASSIUM 4.2 mmol/L (3.5-5.1); RBC 3.05 M/mm3 (4.00-5.60); RDW 19.6 % (11.9-15.9); WHITE BLOOD COUNT 6.4 K/mm3 (4.0-10.0)
[2020-02-02 09:35] LABS: CALCIUM 7.7 mg/dL (8.5-10.1)
[2020-02-02 09:36] LABS: ALBUMIN 2.1 g/dl (3.4-5.0)
[2020-02-02 09:39] LABS: CREATININE 1.7 mg/dL (0.55-1.3)
[2020-02-02 09:41] LABS: BILIRUBIN,TOTAL 0.5 mg/dL (0.2-1); TOT PROT 7.3 g/dl (6.4-8.2)
[2020-02-02] MEDS: MINERAL OIL/PET HY-PHL TOPICAL OINTMENT 454 GM JAR TP SCH (11:06)
[2020-02-02] MEDS: CYANOCOBALAMIN (VITAMIN B-12) 1000 MCG/1 ML VIAL IM SCH (11:06)
[2020-02-02] MEDS: COLLAGENASE CLOSTRIDIUM HIST. 30 GRAMS TUBE TP SCH (11:06)
[2020-02-02] MEDS: IRON POLYSACCHARIDES 150 MG CAPSULE PO SCH (11:09)
[2020-02-02] MEDS: FLUDROCORTISONE ACETATE 0.1 MG TABLET (FP) PO SCH (11:09)
[2020-02-02] MEDS: risperiDONE 0.25 MG TABLET PO SCH ×2 (11:09→23:04)
[2020-02-02] MEDS: predniSONE 10 MG TABLET (UD) PO SCH (11:09)
[2020-02-02] MEDS: DIVALPROEX SODIUM 250 MG TABLET E.C. PO SCH ×2 (11:09→23:04)
[2020-02-02] MEDS: PANTOPRAZOLE 40 MG TABLET PO SCH (11:12)
[2020-02-02] MEDS: FUROSEMIDE 40 MG TABLET (FP) PO SCH (11:12)
[2020-02-02] MEDS: COLCHICINE 0.6 MG TAB PO SCH (11:15)
--- NOTE | 2020-02-02 14:23 | PN ---
Progress Note, Physician Chief Complaint: Anemia History of Present Illness: Previous notes and events reviewed awake and alert NAD Hg 7.7--received Venofer 300mg IVPB 01/31/20 denies dizziness, chest pain dressing to bilateral lower extremity - Current Medication List Current Medications: Active Medications Acetaminophen (Tylenol -) 650 mg PO Q6H PRN PRN Reason: PAIN LEVEL 1-5 Apixaban (Eliquis -) 2.5 mg PO BID [facility] Last Admin: 01/27/20 21:11 Dose: 2.5 mg Documented by: Colchicine (Colcrys) 0.6 mg PO DAILY [facility] Last Admin: 02/02/20 11:15 Dose: 0.6 mg Documented by: Collagenase (Santyl -) 1 applic TP DAILY [facility]; Protocol Last Admin: 02/02/20 11:06 Dose: 1 applic Documented by: Cyanocobalamin (Vitamin B12 Injection -) 1,000 mcg IM DAILY [facility] Last Admin: 02/02/20 11:06 Dose: 1,000 mcg Documented by: Divalproex Sodium (Depakote -) 250 mg PO BID [facility] Last Admin: 02/02/20 11:09 Dose: 250 mg Documented by: Emollient Ointment (Aquaphor -) 1 applic TP DAILY [facility] Last Admin: 02/02/20 11:06 Dose: 1 applic Documented by: Fludrocortisone Acetate (Florinef -) 0.1 mg PO DAILY [facility] Last Admin: 02/02/20 11:09 Dose: 0.1 mg Documented by: Furosemide (Lasix -) 40 mg PO DAILY [facility] Last Admin: 02/02/20 11:12 Dose: 40 mg Documented by: Pantoprazole Sodium (Protonix -) 40 mg PO DAILY [facility] Last Admin: 02/02/20 11:12 Dose: 40 mg Documented by: Polysaccharide Iron Complex (Niferex-150 -) 150 mg PO DAILY [facility] Last Admin: 02/02/20 11:09 Dose: 150 mg Documented by: Prednisone (Deltasone -) 10 mg PO DAILY [facility] Last Admin: 02/02/20 11:09 Dose: 10 mg Documented by: Risperidone (Risperdal -) 0.25 mg PO BID [facility] Last Admin: 02/02/20 11:09 Dose: 0.25 mg Documented by: - Objective Vital Signs: Vital Signs Temperature 98.1 F 02/01/20 21:14 Pulse Rate 80 02/01/20 21:14 Respiratory Rate 20 02/02/20 09:00 Blood Pressure 120/60 02/01/20 21:14 O2 Sat by Pulse Oximetry (%) 95 02/02/20 09:00 Constitutional: Yes: No Distress, Calm Eyes: Yes: Conjunctiva Clear HENT: Yes: Atraumatic Cardiovascular: Yes: Regular Rate and Rhythm Respiratory: Yes: Regular, Diminished Gastrointestinal: Yes: Normal Bowel Sounds, Soft Musculoskeletal: Yes: Muscle Weakness Extremities: Yes: WNL Wound/Incision: Yes: Dressing Dry and Intact (b/l LE) Neurological: Yes: Alert, Oriented Psychiatric: Yes: Alert, Oriented Labs: CBC, BMP 02/02/20 08:22 02/02/20 08:22 INR, PTT INR 1.29 (0.83-1.09) H 01/25/20 07:30 Problem List - Problems (1) CKD (chronic kidney disease) Assessment/Plan: Renal on board BUN/Cr 45.0/1.7 monitor renal function Code(s): N18.9 - CHRONIC KIDNEY DISEASE, UNSPECIFIED (2) Severe depression Assessment/Plan: Depakote BID Risperdal BID Psychiatry consult Code(s): F32.2 - MAJOR DEPRESSV DISORD, SINGLE EPSD, SEV W/O PSYCH FEATURES (3) Anemia Assessment/Plan: Hg 7.7 Guaiac negative Iron Polysaccharide GI on board Received 2 unit PRBC this admission Low Iron and TIBC Venofer 300mg IVPB yesterday cyanocobalamine 1000 mcg IM Monitor Hg daily Transfuse only if Hg<7.0 to avoid fluid overload Colonoscopy done 01/31/20-no source of bleeding noted Resume Eliquis once hemodynamicaly stable-will resume Eliquis tomorrow AM if noted with drop in Hg again consider holding again Code(s): D64.9 - ANEMIA, UNSPECIFIED Qualifiers: Anemia type: unspecified type Qualified Code(s): D64.9 - Anemia, unspecified Assessment/Plan see problem list
[2020-02-02] MEDS ORDERED: PT OWN MED DRAWER 7, Y5N ONE ×2 (21:45→23:26)
[2020-02-03 08:04] LABS: HEMATOCRIT 26.3 % (35.4-49); HEMOGLOBIN 8.1 GM/dL (11.7-16.9); MCH 24.9 pg (25.7-33.7); MCHC 30.7 g/dl (32.0-35.9); MEAN CELL VOLUME 81.3 fl (80-96); MEAN PLT VOLUME 9.3 fl (7.5-11.1); PLATELET COUNT 182 K/MM3 (134-434); RBC 3.24 M/mm3 (4.00-5.60); RDW 20.6 % (11.9-15.9); WHITE BLOOD COUNT 6.1 K/mm3 (4.0-10.0)
[2020-02-03 08:23] LABS: POTASSIUM 4.6 mmol/L (3.5-5.1)
[2020-02-03 08:31] LABS: CALCIUM 7.7 mg/dL (8.5-10.1)
[2020-02-03 08:32] LABS: ALBUMIN 2.1 g/dl (3.4-5.0); BLOOD UREA NITROGEN 48.1 mg/dL (7-18)
[2020-02-03 08:35] LABS: CREATININE 1.7 mg/dL (0.55-1.3)
[2020-02-03 08:36] LABS: BILIRUBIN,TOTAL 0.7 mg/dL (0.2-1); TOT PROT 7.6 g/dl (6.4-8.2)
[2020-02-03] MEDS: COLCHICINE 0.6 MG TAB PO SCH (09:10)
[2020-02-03] MEDS: FUROSEMIDE 40 MG TABLET (FP) PO SCH (09:10)
[2020-02-03] MEDS: PANTOPRAZOLE 40 MG TABLET PO SCH (09:10)
[2020-02-03] MEDS: DIVALPROEX SODIUM 250 MG TABLET E.C. PO SCH ×2 (09:11→21:47)
[2020-02-03] MEDS: IRON POLYSACCHARIDES 150 MG CAPSULE PO SCH (09:11)
[2020-02-03] MEDS: predniSONE 10 MG TABLET (UD) PO SCH (09:11)
[2020-02-03] MEDS: risperiDONE 0.25 MG TABLET PO SCH ×2 (09:12→21:46)
[2020-02-03] MEDS: FLUDROCORTISONE ACETATE 0.1 MG TABLET (FP) PO SCH (09:12)
[2020-02-03] MEDS: MINERAL OIL/PET HY-PHL TOPICAL OINTMENT 454 GM JAR TP SCH (09:14)
[2020-02-03] MEDS: CYANOCOBALAMIN (VITAMIN B-12) 1000 MCG/1 ML VIAL IM SCH (09:14)
--- NOTE | 2020-02-03 10:29 | PN ---
Progress Note, Physician Chief Complaint: Anemia History of Present Illness: 59 YO AA man with Mhx of HFrEF (30-35%), afib on AC, Gout, chronic leg wounds, primary adrenal insuf. and lymphedema, presented from [facility] after been found to have low Hg of 6.4. Pt denies dizziness, CP, palpitations, no LOC, no change in bowel habits, or urine habits, no change in color of stool. Pt recalls needing blood transfusion one year ago, but denies any bleeding. S/P egd+ colonoscopy with no source of anemia NAD denies any pain or SOB - Current Medication List Current Medications: Active Medications Acetaminophen (Tylenol -) 650 mg PO Q6H PRN PRN Reason: PAIN LEVEL 1-5 Apixaban (Eliquis -) 2.5 mg PO BID [facility] Last Admin: 01/27/20 21:11 Dose: 2.5 mg Documented by: Colchicine (Colcrys) 0.6 mg PO DAILY [facility] Last Admin: 02/03/20 09:10 Dose: 0.6 mg Documented by: Collagenase (Santyl -) 1 applic TP DAILY [facility]; Protocol Last Admin: 02/02/20 11:06 Dose: 1 applic Documented by: Cyanocobalamin (Vitamin B12 Injection -) 1,000 mcg IM DAILY [facility] Last Admin: 02/03/20 09:14 Dose: 1,000 mcg Documented by: Divalproex Sodium (Depakote -) 250 mg PO BID [facility] Last Admin: 02/03/20 09:11 Dose: 250 mg Documented by: Emollient Ointment (Aquaphor -) 1 applic TP DAILY [facility] Last Admin: 02/03/20 09:14 Dose: 1 applic Documented by: Fludrocortisone Acetate (Florinef -) 0.1 mg PO DAILY [facility] Last Admin: 02/03/20 09:12 Dose: 0.1 mg Documented by: Furosemide (Lasix -) 40 mg PO DAILY [facility] Last Admin: 02/03/20 09:10 Dose: 40 mg Documented by: Pantoprazole Sodium (Protonix -) 40 mg PO DAILY [facility] Last Admin: 02/03/20 09:10 Dose: 40 mg Documented by: Polysaccharide Iron Complex (Niferex-150 -) 150 mg PO DAILY [facility] Last Admin: 02/03/20 09:11 Dose: 150 mg Documented by: Prednisone (Deltasone -) 10 mg PO DAILY [facility] Last Admin: 02/03/20 09:11 Dose: 10 mg Documented by: Risperidone (Risperdal -) 0.25 mg PO BID [facility] Last Admin: 02/03/20 09:12 Dose: 0.25 mg Documented by: - Objective Vital Signs: Vital Signs Temperature 97.9 F 02/02/20 21:10 Pulse Rate 80 02/02/20 21:10 Respiratory Rate 20 02/02/20 21:10 Blood Pressure 130/75 02/02/20 21:10 O2 Sat by Pulse Oximetry (%) 98 02/02/20 14:00 Constitutional: Yes: Well Nourished, No Distress, Calm Cardiovascular: Yes: Regular Rate and Rhythm Respiratory: Yes: Regular, CTA Bilaterally Gastrointestinal: Yes: Normal Bowel Sounds, Soft Genitourinary: Yes: WNL Musculoskeletal: Yes: Muscle Weakness Extremities: Yes: WNL Edema: Yes (BLLE chronic lymphedema) Peripheral Pulses WNL: Yes Wound/Incision: Yes: Dressing Dry and Intact (BLLE) Neurological: Yes: Alert, Oriented Psychiatric: Yes: Alert, Oriented Labs: CBC, BMP 02/03/20 07:25 02/03/20 07:25 INR, PTT INR 1.29 (0.83-1.09) H 01/25/20 07:30 Problem List - Problems (1) CKD (chronic kidney disease) Assessment/Plan: -Nephrology consult -Cr at baseline Problems reviewed: Yes Code(s): N18.9 - CHRONIC KIDNEY DISEASE, UNSPECIFIED (2) Severe depression Assessment/Plan: -Psychiatry + psychotherapy consult appreciated -Recommended risperidal 1mg po bid and depakote 250 mg po bid, which may be may titrated at later point. -Would start risperidal at lower dose to monitor effect along with depakote. Problems reviewed: Yes Code(s): F32.2 - MAJOR DEPRESSV DISORD, SINGLE EPSD, SEV W/O PSYCH FEATURES (3) Anemia Assessment/Plan: -Guaiac negative -Received 2 unit PRBC this admission -Iron % low -Received Injectafer this admission -B12 low, start cyanocobalamine 1000 mcg IM daily--> transition to 2500 mcg SL upon discharge -thyroid profile normal -Monitor trend -Transfuse only if Hg<7.0 to avoid fluid overload -For colonoscopy today -Resume Eliquis once hemodynamicaly stable Problems reviewed: Yes Code(s): D64.9 - ANEMIA, UNSPECIFIED Qualifiers: Anemia type: unspecified type Qualified Code(s): D64.9 - Anemia, unspecified Assessment/Plan See problem list Repeat COVID 19 PCR in preparation of discharge
[2020-02-03] MEDS ORDERED: PT OWN MED DRAWER 7, Y5N ONE ×3 (10:36→20:58)
[2020-02-03] MEDS: APIXABAN 2.5 MG TABLET PO SCH ×2 (10:39→21:46)
[2020-02-03] MEDS: COLLAGENASE CLOSTRIDIUM HIST. 30 GRAMS TUBE TP SCH (14:27)
--- NOTE | 2020-02-03 15:43 | PN ---
Progress Note, Physician History of Present Illness: Pt seen and examined at bedside. He is awake and alert. - Current Medication List Current Medications: Active Medications Acetaminophen (Tylenol -) 650 mg PO Q6H PRN PRN Reason: PAIN LEVEL 1-5 Apixaban (Eliquis -) 2.5 mg PO BID [facility] Last Admin: 02/03/20 10:39 Dose: 2.5 mg Documented by: Colchicine (Colcrys) 0.6 mg PO DAILY [facility] Last Admin: 02/03/20 09:10 Dose: 0.6 mg Documented by: Collagenase (Santyl -) 1 applic TP DAILY [facility]; Protocol Last Admin: 02/03/20 14:27 Dose: 1 applic Documented by: Cyanocobalamin (Vitamin B12 -) 1,000 mcg PO DAILY [facility] Divalproex Sodium (Depakote -) 250 mg PO BID [facility] Last Admin: 02/03/20 09:11 Dose: 250 mg Documented by: Emollient Ointment (Aquaphor -) 1 applic TP DAILY [facility] Last Admin: 02/03/20 09:14 Dose: 1 applic Documented by: Fludrocortisone Acetate (Florinef -) 0.1 mg PO DAILY [facility] Last Admin: 02/03/20 09:12 Dose: 0.1 mg Documented by: Furosemide (Lasix -) 40 mg PO DAILY [facility] Last Admin: 02/03/20 09:10 Dose: 40 mg Documented by: Pantoprazole Sodium (Protonix -) 40 mg PO DAILY [facility] Last Admin: 02/03/20 09:10 Dose: 40 mg Documented by: Polysaccharide Iron Complex (Niferex-150 -) 150 mg PO DAILY [facility] Last Admin: 02/03/20 09:11 Dose: 150 mg Documented by: Prednisone (Deltasone -) 10 mg PO DAILY [facility] Last Admin: 02/03/20 09:11 Dose: 10 mg Documented by: Risperidone (Risperdal -) 0.25 mg PO BID [facility] Last Admin: 02/03/20 09:12 Dose: 0.25 mg Documented by: - Objective Vital Signs: Vital Signs Temperature 97.9 F 02/02/20 21:10 Pulse Rate 80 02/02/20 21:10 Respiratory Rate 20 02/02/20 21:10 Blood Pressure 130/75 02/02/20 21:10 O2 Sat by Pulse Oximetry (%) 98 02/02/20 14:00 Constitutional: Yes: Calm Eyes: Yes: Conjunctiva Clear HENT: Yes: Atraumatic Neck: Yes: Supple Cardiovascular: Yes: S1, S2 Respiratory: Yes: CTA Bilaterally Gastrointestinal: Yes: Soft Genitourinary: Yes: WNL Musculoskeletal: Yes: WNL Edema: Yes Edema: LLE: Trace, RLE: Trace Wound/Incision: Yes: Dressing Dry and Intact Neurological: Yes: Oriented Psychiatric: Yes: Oriented Labs: CBC, BMP 02/03/20 07:25 02/03/20 07:25 INR, PTT INR 1.29 (0.83-1.09) H 01/25/20 07:30 Assessment/Plan Current Medications Generic Name Dose Route Start Last Admin Trade Name Freq PRN Reason Stop Dose Admin Acetaminophen 650 mg 01/24/20 22:01 Tylenol - PO Q6H PRN PAIN LEVEL 1-5 Apixaban 2.5 mg 01/24/20 22:00 02/03/20 10:39 Eliquis - PO 2.5 mg BID MICHELLE Administration Colchicine 0.6 mg 01/25/20 10:00 02/03/20 09:10 Colcrys PO 0.6 mg DAILY MICHELLE Administration Collagenase 1 applic 01/28/20 14:15 02/03/20 14:27 Santyl - TP 1 applic DAILY MICHELLE Administration Protocol Cyanocobalamin 1,000 mcg 02/04/20 10:00 Vitamin B12 - PO DAILY MICHELLE Divalproex Sodium 250 mg 01/31/20 22:00 02/03/20 09:11 Depakote - PO 250 mg BID MICHELLE Administration Emollient Ointment 1 applic 01/28/20 10:00 02/03/20 09:14 Aquaphor - TP 1 applic DAILY MICHELLE Administration Fludrocortisone Acetate 0.1 mg 01/25/20 10:00 02/03/20 09:12 Florinef - PO 0.1 mg DAILY MICHELLE Administration Furosemide 40 mg 01/25/20 10:00 02/03/20 09:10 Lasix - PO 40 mg DAILY MICHELLE Administration Pantoprazole Sodium 40 mg 01/25/20 10:15 02/03/20 09:10 Protonix - PO 40 mg DAILY MICHELLE Administration Polysaccharide Iron Complex 150 mg 01/26/20 10:00 02/03/20 09:11 Niferex-150 - PO 150 mg DAILY MICHELLE Administration Prednisone 10 mg 01/25/20 10:00 02/03/20 09:11 Deltasone - PO 10 mg DAILY MICHELLE Administration Risperidone 0.25 mg 01/31/20 22:00 02/03/20 09:12 Risperdal - PO 0.25 mg BID MICHELLE Administration Impression 1. CKD 2. chf 3. anemia 4. lower ext wounds 5. a-fib 6. gout Plan - cont lasix - volume status stable - renal function stable - avoid nsaids - no acute change in management
--- NOTE | 2020-02-03 15:51 | PATH ---
Surgical Pathology Report Patient Name: STU العلي III Med. Rec. #: [id number] /Age/Gender: 1960 (Age: 59) / M Account: [id number] Location: [facility] MED/SURG Taken: 01/31/2020 Received: 01/31/2020 Reported: 02/03/2020 Physicians: Radu Driscoll D.O. Specimen(s) Received A: ANTRAL NODULE AND GASTRITIS B: PROMINENT FOLD PYLORUS C: ANGULARIS AND BODY D: PROMINENT FOLD ILEOCECAL VALVE Clinical History Anemia Postoperative diagnosis: Gastritis, kodi esophagitis, anemia Final Diagnosis A. ANTRAL NODULE AND GASTRITIS, BIOPSY GASTRIC MUCOSA WITH CHRONIC GASTRITIS. REACTIVE GASTROPATHY PRESENT. IMMUNOSTAIN FOR H. PYLORI IS NEGATIVE. NEGATIVE FOR INTESTINAL METAPLASIA. B. PROMINENT FOLD PYLORUS, BIOPSY: GASTRIC MUCOSA WITH REACTIVE GASTROPATHY. IMMUNOSTAIN FOR H. PYLORI IS NEGATIVE. NEGATIVE FOR INTESTINAL METAPLASIA. C. ANGULARIS AND BODY, BIOPSY: GASTRIC MUCOSA WITH CHRONIC GASTRITIS. IMMUNOSTAIN FOR H. PYLORI IS NEGATIVE. NEGATIVE FOR INTESTINAL METAPLASIA. D. PROMINENT FOLDS ILEOCECAL VALVE, BIOPSY: TUBULAR ADENOMA. Electronically Signed Len Camarena M.D. Gross Description A. Received in formalin, labeled "biopsy antral nodule and gastritis" are 3 goss, irregular portions of soft tissue ranging from 0.2-0.5 cm. in greatest dimension. The specimens are submitted in toto in one cassette. B. Received in formalin, labeled "biopsy prominent fold pylorus" are 2 goss, irregular portions of soft tissue averaging 0.3 cm. in greatest dimension. The specimens are submitted in toto in one cassette. C. Received in formalin, labeled "biopsy angularis and body" are 2 goss, irregular portions of soft tissue measuring 0.2 and 0.8 cm. in greatest dimension. The specimens are submitted in toto in one cassette. D. Received in formalin, labeled "biopsy prominent fold ileocecal valve" are 2 goss, irregular portions of soft tissue measuring 0.2 and 0.4 cm. in greatest dimension. The specimens are submitted in toto in one cassette. DL/01/31/2020 saudi/01/31/2020
[2020-02-04 00:18] VITALS: BP 134/76; PULSE 78; TEMP 98.2
[2020-02-04] MEDS ORDERED: PT OWN MED DRAWER 7, Y5N ONE ×2 (09:36→10:05)
[2020-02-04] MEDS: PANTOPRAZOLE 40 MG TABLET PO SCH (09:40)
[2020-02-04] MEDS: FUROSEMIDE 40 MG TABLET (FP) PO SCH (09:41)
[2020-02-04] MEDS: DIVALPROEX SODIUM 250 MG TABLET E.C. PO SCH (09:41)
[2020-02-04] MEDS: COLCHICINE 0.6 MG TAB PO SCH (09:41)
[2020-02-04] MEDS: APIXABAN 2.5 MG TABLET PO SCH (09:41)
[2020-02-04] MEDS: COLLAGENASE CLOSTRIDIUM HIST. 30 GRAMS TUBE TP SCH (09:42)
[2020-02-04] MEDS: IRON POLYSACCHARIDES 150 MG CAPSULE PO SCH (09:42)
[2020-02-04] MEDS: FLUDROCORTISONE ACETATE 0.1 MG TABLET (FP) PO SCH (09:42)
[2020-02-04] MEDS: risperiDONE 0.25 MG TABLET PO SCH (09:42)
[2020-02-04] MEDS: MINERAL OIL/PET HY-PHL TOPICAL OINTMENT 454 GM JAR TP SCH (09:44)
[2020-02-04] MEDS: predniSONE 10 MG TABLET (UD) PO SCH (09:45)
[2020-02-04] MEDS ORDERED: CYANOCOBALAMIN 1,000 MCG TABLET (FP) PO SCH (10:00)
--- NOTE | 2020-02-04 10:25 | DS ---
Physical Examination Vital Signs: Vital Signs Temperature 98.2 F 02/03/20 22:00 Pulse Rate 78 02/03/20 22:00 Respiratory Rate 20 02/03/20 22:00 Blood Pressure 134/76 02/03/20 22:00 O2 Sat by Pulse Oximetry (%) 98 02/03/20 22:00 Findings/Remarks: 59 YO AA man with Mhx of HFrEF (30-35%), afib on AC, Gout, chronic leg wounds, primary adrenal insuf. and lymphedema, presented from [facility] after been found to have low Hg of 6.4. Pt denies dizziness, CP, palpitations, no LOC, no change in bowel habits, or urine habits, no change in color of stool. Pt recalls needing blood transfusion one year ago, but denies any bleeding. S/P egd+ colonoscopy with no source of anemia (1) CKD (chronic kidney disease) Assessment/Plan: -Nephrology consult -Cr at baseline Problems reviewed: Yes Code(s): N18.9 - CHRONIC KIDNEY DISEASE, UNSPECIFIED (2) Severe depression Assessment/Plan: -Psychiatry + psychotherapy consult appreciated -Recommended risperidal 1mg po bid and depakote 250 mg po bid, which may be may titrated at later point. -Would start risperidal at lower dose to monitor effect along with depakote, so far tolerating well Problems reviewed: Yes Code(s): F32.2 - MAJOR DEPRESSV DISORD, SINGLE EPSD, SEV W/O PSYCH FEATURES (3) Anemia Assessment/Plan: -Guaiac negative -Received 2 unit PRBC this admission -Iron % low -Received Injectafer this admission -Continue ferrous sulfate 1 tab bid -B12 low, started cyanocobalamine 2500 mcg SL -thyroid profile normal -Monitor trend -Transfuse only if Hg<7.0 to avoid fluid overload -S/P EGD+ colonoscopy- with no clear source of anemia -Continue Eliquis Problems reviewed: Yes Code(s): D64.9 - ANEMIA, UNSPECIFIED Qualifiers: Anemia type: unspecified type Qualified Code(s): D64.9 - Anemia, unspecified Assessment/Plan See problem list Repeat COVID 19 PCR negative Constitutional: Yes: Well Nourished, No Distress, Calm Cardiovascular: Yes: Regular Rate and Rhythm Respiratory: Yes: Regular, CTA Bilaterally Gastrointestinal: Yes: Normal Bowel Sounds, Soft Renal/: Yes: WNL Musculoskeletal: Yes: Muscle Weakness Extremities: Yes: WNL Edema: Yes (chronic lymphedema) Peripheral Pulses WNL: Yes Wound/Incision: Yes: Dressing Dry and Intact (BLLE) Neurological: Yes: Alert, Oriented Psychiatric: Yes: Alert, Oriented Labs: CBC, BMP 02/03/20 07:25 02/03/20 07:25 Discharge Summary Problems reviewed: Yes Reason For Visit: CONGESTIVE HEART FAILURE,ANEMIA Current Active Problems CKD (chronic kidney disease) (Acute) Depressed affect (Acute) Manic behavior (Acute) Severe depression (Acute) Anemia (Chronic) Condition: Stable - Instructions Referrals: Mike Valerio MD [Primary Care Provider] - Azucena Lim DO [Staff Physician] - Jojo Naqvi MD [Staff Physician] - Disposition: [facility] - Home Medications Comprehensive Discharge Medication List: Ambulatory Orders Furosemide [Lasix] 40 mg PO DAILY 06/24/16 Allopurinol 300 mg PO DAILY 06/07/18 Folic Acid 1 mg PO DAILY 06/07/18 Aspirin [ASA -] 81 mg PO DAILY #30 tab.chew 06/23/18 Tamsulosin HCl 0.4 mg PO HS #30 capsule 02/24/19 Allopurinol 300 mg PO DAILY 04/12/19 Acetaminophen [Tylenol .Regular Strength -] 650 mg PO Q6H PRN tablet 02/04/20 Apixaban [Eliquis -] 2.5 mg PO BID tablet 02/04/20 Carvedilol [Coreg -] 3.125 mg PO BID #60 tablet 02/04/20 Colchicine [Colcrys] 0.6 mg PO DAILY tab 02/04/20 Collagenase Clostridium Hist. [Santyl -] 1 applic TP DAILY tube 02/04/20 Cyanocobalamin [Vitamin B12 -] 1,000 mcg PO DAILY tablet 02/04/20 Divalproex [Depakote -] 250 mg PO BID tablet.ec 02/04/20 Ferrous Sulfate 325 mg PO BID #60 tab 02/04/20 Fludrocortisone Acetate [Florinef -] 0.1 mg PO DAILY tablet 02/04/20 Furosemide [Lasix -] 40 mg PO DAILY tablet 02/04/20 Iron Polysaccharides [Niferex-150 -] 150 mg PO DAILY capsule 02/04/20 Mineral Oil/Pet Hy-Phl [Aquaphor -] 1 applic TP DAILY jar 02/04/20 Pantoprazole Sodium [Protonix -] 40 mg PO DAILY tablet.ec 02/04/20 Risperidone [Risperdal -] 0.25 mg PO BID tablet 02/04/20 predniSONE [Deltasone -] 10 mg PO DAILY tablet 02/04/20 Prescription Drug Monitoring Program (I-STOP) results: I-STOP reviewed and no issues identified
--- NOTE | 2020-02-04 14:10 | PN ---
Progress Note, Physician History of Present Illness: Pt seen and examined at bedside. He is awake and alert. he denies shortness of breath. - Objective Vital Signs: Vital Signs Temperature 98.2 F 02/03/20 22:00 Pulse Rate 78 02/03/20 22:00 Respiratory Rate 20 02/04/20 09:00 Blood Pressure 134/76 02/03/20 22:00 O2 Sat by Pulse Oximetry (%) 98 02/04/20 09:00 Constitutional: Yes: Calm Eyes: Yes: Conjunctiva Clear HENT: Yes: Atraumatic Neck: Yes: Supple Cardiovascular: Yes: S1, S2 Respiratory: Yes: CTA Bilaterally Gastrointestinal: Yes: Normal Bowel Sounds, Soft Genitourinary: Yes: WNL Musculoskeletal: Yes: WNL Edema: LLE: Trace, RLE: Trace Wound/Incision: Yes: Dressing Dry and Intact Neurological: Yes: Oriented Psychiatric: Yes: Oriented Labs: CBC, BMP 02/03/20 07:25 02/03/20 07:25 INR, PTT INR 1.29 (0.83-1.09) H 01/25/20 07:30 Assessment/Plan Impression 1. CKD 2. chf 3. anemia 4. lower ext wounds 5. a-fib 6. gout Plan - cont wound care - cont lasix - will need outpt follow up - avoid nsaids - no acute change in management
== END 2020-02-04 13:15 | DRG 812 ==
LOC: JER 17:34 → JERBED 21:21 → J8W 01-25 02:32
PROVIDERS: ADMIT Student in an Organized Health Care Education/Training Program; ATTEND Family Medicine
PROC: 30233N1 Transfusion of Nonautologous Red Blood Cells into Peripheral Vein, Percutaneous Approach (ICD-10-PCS; 2020-01-24)
PROC: 0DBE8ZX Excision of Large Intestine, Via Natural or Artificial Opening Endoscopic, Diagnostic (ICD-10-PCS; principal; 2020-01-31 12:30)
DX: D50.0 Iron deficiency anemia secondary to blood loss (chronic) (principal); I50.20 Unspecified systolic (congestive) heart failure; I13.0 Hypertensive heart and chronic kidney disease with heart failure and stage 1 through stage 4 chronic kidney disease, or unspecified chronic kidney disease; F32.2 Major depressive disorder, single episode, severe without psychotic features; N18.4 Chronic kidney disease, stage 4 (severe); F30.10 Manic episode without psychotic symptoms, unspecified; L03.115 Cellulitis of right lower limb; L03.116 Cellulitis of left lower limb; I48.91 Unspecified atrial fibrillation; I73.9 Peripheral vascular disease, unspecified; R45.89 Other symptoms and signs involving emotional state; I83.008 Varicose veins of unspecified lower extremity with ulcer other part of lower leg; M10.9 Gout, unspecified; E66.9 Obesity, unspecified; Z68.29 Body mass index [BMI] 29.0-29.9, adult
CPT/HCPCS: 36415; 36430; 71045-TC-FY; 80048; 80053; 81003; 82272; 82607; 82668; 82728; 83010; 83540; 83550; 83615; 83735; 84100; 84439; 84443; 84478; 85025; 85027; 85045; 85610; 85730; 86850; 86900; 86901; 86922; 88305-TC; 93005; 93010; 97116-GP; 97161-GP; 99285-25; C9803; J1439; J1756; P9058; U0003

== ENCOUNTER 2020-03-29 14:42 | Inpatient (IN) | payer OTHER ==
[2020-03-29] MEDS ORDERED: PHENYLEPHRINE HCL 10 MG/1 ML SINGLE DOSE VIAL ONE (15:18)
[2020-03-29] MEDS ORDERED: KETAMINE HCL 200 MG/20 ML VIAL ONE (15:40)
[2020-03-29] MEDS ORDERED: EPINEPHrine 1:10,000 (P-F SYR) 1 MG/10 ML DISP.SYRIN ONE ×2 (15:48→15:55)
[2020-03-29 15:52] LABS: BASO % 1.5 % (0-2.0); EOS % 5.5 % (0-4.5); HEMATOCRIT 18.7 % (35.4-49); LYMPH % 14.9 % (8-40); MCH 25.5 pg (25.7-33.7); MCHC 29.4 g/dl (32.0-35.9); MEAN CELL VOLUME 86.9 fl (80-96); MONO % 15.8 % (3.8-10.2); NEUT % 62.3 % (42.8-82.8); PLATELET COUNT 223 K/MM3 (134-434); RBC 2.15 M/mm3 (4.00-5.60); RDW 21.8 % (11.9-15.9); WHITE BLOOD COUNT 7.3 K/mm3 (4.0-10.0)
[2020-03-29 15:56] LABS: HEMOGLOBIN 5.5 GM/dL (11.7-16.9)
[2020-03-29] MEDS ORDERED: PHENYLEPHRINE HCL 10 MG/1 ML SINGLE DOSE VIAL IVPB PRN (16:00)
[2020-03-29 16:01] LABS: INR 2.71 (0.83-1.09); PROTHROMBIN TIME (PATIENT) 32.4 SEC (9.7-13.0)
[2020-03-29 16:04] LABS: ACTIVATED PTT 35.4 SECONDS (25.2-36.5)
[2020-03-29 16:16] LABS: CALCIUM 7.9 mg/dL (8.5-10.1)
[2020-03-29 16:17] LABS: ALBUMIN 1.6 g/dl (3.4-5.0); BLOOD UREA NITROGEN 83.9 mg/dL (7-18)
[2020-03-29] MEDS ORDERED: EPINEPHrine 1:1,000 1 MG/1 ML - 30ML VIAL (INJECTION) IV ONE (16:17)
[2020-03-29 16:20] LABS: CREATININE 4.6 mg/dL (0.55-1.3)
[2020-03-29 16:21] LABS: BILIRUBIN,TOTAL 0.5 mg/dL (0.2-1)
[2020-03-29] MEDS ORDERED: NOREPINEPHRINE D5W PREMIX 16,000 MCG/500 ML BAG IVPB SCH (16:30)
[2020-03-29 16:59] LABS: ANISOCYTOSIS 2+
[2020-03-29] MEDS ORDERED: SODIUM CHLORIDE 0.9% 500 ML INFUS.BAG IV ONE (20:54)
[2020-03-29 21:03] LABS: BASO % 0.8 % (0-2.0); EOS % 1.8 % (0-4.5); HEMATOCRIT 23.4 % (35.4-49); HEMOGLOBIN 7.3 GM/dL (11.7-16.9); LYMPH % 8.7 % (8-40); MCH 26.5 pg (25.7-33.7); MCHC 31.4 g/dl (32.0-35.9); MEAN CELL VOLUME 84.5 fl (80-96); MEAN PLT VOLUME 9.1 fl (7.5-11.1); NEUT % 75.7 % (42.8-82.8); PLATELET COUNT 176 K/MM3 (134-434); RBC 2.77 M/mm3 (4.00-5.60); RDW 18.2 % (11.9-15.9); WHITE BLOOD COUNT 8.5 K/mm3 (4.0-10.0)
[2020-03-29 21:17] LABS: POTASSIUM 5.9 mmol/L (3.5-5.1)
[2020-03-29 21:18] LABS: CALCIUM 7.3 mg/dL (8.5-10.1)
[2020-03-29 21:19] LABS: BLOOD UREA NITROGEN 82.4 mg/dL (7-18)
[2020-03-29 21:22] LABS: CREATININE 4.3 mg/dL (0.55-1.3)
[2020-03-30] MEDS ORDERED: VANCOMYCIN 1 GM in D5W (PRE-DOCKED) 1,000 MG/250 ML IVPB SCH (00:15)
[2020-03-30 00:44] LABS: EPI CELLS 26 /uL (0-25.1); HYALINE CASTS 13 /uL (0-3.1); URINE APPEARANCE CLOUDY; URINE BACTERIA 42 /uL (0-1359); URINE BILIRUBIN NEGATIVE (NEGATIVE); URINE COLOR YELLOW; URINE GLUCOSE (UA) NEGATIVE (NEGATIVE); URINE KETONE NEGATIVE (NEGATIVE); URINE LEUK ESTERASE 1+ (NEGATIVE); URINE NITRITE NEGATIVE (NEGATIVE); URINE PROTEIN NEGATIVE (NEGATIVE); URINE RBC 25 /uL (0-23.9); URINE UROBILINOGEN 0.2 mg/dL (0.2-1.0); URINE WBC 47 /uL (0-25.8)
[2020-03-30] MEDS: NOREPINEPHRINE BITARTRATE 16,000 MCG in SODIUM CHLORIDE 484 ML IV SCH (00:59)
[2020-03-30 03:01] LABS: HEMOGLOBIN 8.4 GM/dL (11.7-16.9); MCH 27.3 pg (25.7-33.7); MCHC 32.1 g/dl (32.0-35.9); MEAN PLT VOLUME 9.4 fl (7.5-11.1); PLATELET COUNT 185 K/MM3 (134-434); RBC 3.06 M/mm3 (4.00-5.60); RDW 17.8 % (11.9-15.9); WHITE BLOOD COUNT 10.7 K/mm3 (4.0-10.0)
[2020-03-30] MEDS ORDERED: DEXTROSE 5%-WATER - 50 ML IVPB ONE ×4 (03:07→20:14)
[2020-03-30] MEDS ORDERED: PIPERACILLIN/TAZOBACTAM 2.25 GM VIAL IVPB ONE ×5 (03:07→20:14)
[2020-03-30] MEDS: PIPERACILLIN/TAZOB 2.25 GM 2.25 GM in DEXTROSE 5%-WATER - 50 ML IVPB SCH ×3 (03:10→20:52)
[2020-03-30 07:05] LABS: BASO % 0.8 % (0-2.0); EOS % 4.3 % (0-4.5); HEMATOCRIT 26.2 % (35.4-49); HEMOGLOBIN 8.4 GM/dL (11.7-16.9); LYMPH % 8.2 % (8-40); MCH 27.3 pg (25.7-33.7); MCHC 32.1 g/dl (32.0-35.9); MEAN CELL VOLUME 84.9 fl (80-96); MEAN PLT VOLUME 9.6 fl (7.5-11.1); NEUT % 76.7 % (42.8-82.8); PLATELET COUNT 189 K/MM3 (134-434); RBC 3.09 M/mm3 (4.00-5.60); RDW 17.9 % (11.9-15.9); WHITE BLOOD COUNT 9.7 K/mm3 (4.0-10.0)
[2020-03-30 07:41] LABS: BLOOD UREA NITROGEN 80.1 mg/dL (7-18); CALCIUM 7.5 mg/dL (8.5-10.1); MAGNESIUM 1.8 mg/dL (1.8-2.4)
[2020-03-30 07:44] LABS: CREATININE 4.1 mg/dL (0.55-1.3); PHOSPHOROUS 6.4 mg/dL (2.5-4.9)
[2020-03-30 07:57] LABS: POTASSIUM 6.4 mmol/L (3.5-5.1)
[2020-03-30] MEDS ORDERED: ACETAMINOPHEN 325 MG TABLET (FP) PO PRN (08:49)
[2020-03-30] MEDS ORDERED: AMMONIUM LACTATE 12% LOTION 225 GM BOTTLE TP PRN (09:22)
[2020-03-30 11:23] LABS: CALCIUM 7.5 mg/dL (8.5-10.1)
[2020-03-30 11:24] LABS: MAGNESIUM 1.8 mg/dL (1.8-2.4)
[2020-03-30] MEDS: PANTOPRAZOLE 40 MG TABLET PO SCH ×2 (11:26→15:05)
[2020-03-30] MEDS: FLUDROCORTISONE ACETATE 0.1 MG TABLET (FP) PO SCH ×2 (11:26→15:05)
[2020-03-30] MEDS: ALLOPURINOL 300 MG TABLET (FP) PO SCH ×2 (11:26→15:04)
[2020-03-30 11:27] LABS: CREATININE 4.1 mg/dL (0.55-1.3)
[2020-03-30] MEDS: risperiDONE 0.25 MG TABLET PO SCH ×4 (11:27→23:27)
[2020-03-30] MEDS ORDERED: PT OWN MED DRAWER 7, Y5N ONE ×2 (11:34→20:19)
[2020-03-30] MEDS: CARVEDILOL 3.125 MG TABLET (FP) PO SCH ×2 (11:39→21:07)
[2020-03-30] MEDS: DIVALPROEX SODIUM 250 MG TABLET E.C. PO SCH ×3 (15:02→23:26)
[2020-03-30] MEDS: COLLAGENASE CLOSTRIDIUM HIST. 30 GRAMS TUBE TP SCH (15:03)
[2020-03-30] MEDS ORDERED: DEXTROSE 50%-WATER - 25 GM/50 ML VIAL IVPUSH ONE (15:38)
[2020-03-30] MEDS ORDERED: INSULIN REGULAR HUMAN 100 UNITS/ML *VIAL IVPUSH STA (15:38)
[2020-03-30] MEDS ORDERED: ALBUTEROL SO4 HFA INHALER IH ONE (15:40)
[2020-03-30] MEDS ORDERED: CALCIUM GLUCONATE 10% - 1,000 MG/10 ML VIAL IVPUSH ONE (15:40)
[2020-03-30] MEDS ORDERED: SODIUM CHLORIDE 1,000 ML IV SCH (15:45)
[2020-03-30] MEDS ORDERED: LACTATED RINGERS SOLUTION 1000 ML INFUS.BAG IV STA (15:45)
[2020-03-30] MEDS ORDERED: DEXTROSE 50%-WATER 25 GM/50 ML DISP.SYRIN ONE (16:28)
[2020-03-30] MEDS ORDERED: NOREPINEPHRINE BITARTRATE 8,000 MCG/500 ML BAG IVPB ONE (21:25)
[2020-03-30] MEDS ORDERED: HALOPERIDOL LACTATE 5 MG/ML IM ONE (23:17)
[2020-03-30] MEDS: LORazepam 2 MG/ML SDV VIAL IVPUSH PRN (23:40)
[2020-03-31] MEDS ORDERED: PIPERACILLIN/TAZOBACTAM 2.25 GM VIAL IVPB ONE ×3 (02:31→17:53)
[2020-03-31] MEDS ORDERED: DEXTROSE 5%-WATER - 50 ML IVPB ONE ×3 (02:32→17:53)
[2020-03-31] MEDS: PIPERACILLIN/TAZOB 2.25 GM 2.25 GM in DEXTROSE 5%-WATER - 50 ML IVPB SCH ×3 (03:52→19:22)
[2020-03-31] MEDS ORDERED: PT OWN MED DRAWER 7, Y5N ONE (06:33)
[2020-03-31 07:37] LABS: BASO % 1.3 % (0-2.0); EOS % 4.1 % (0-4.5); HEMOGLOBIN 8.7 GM/dL (11.7-16.9); LYMPH % 9.7 % (8-40); MCH 27.3 pg (25.7-33.7); MCHC 32.2 g/dl (32.0-35.9); MEAN CELL VOLUME 84.8 fl (80-96); MONO % 18.9 % (3.8-10.2); PLATELET COUNT 196 K/MM3 (134-434); RBC 3.18 M/mm3 (4.00-5.60)
[2020-03-31 08:10] LABS: ALBUMIN 1.7 g/dl (3.4-5.0); BLOOD UREA NITROGEN 74.1 mg/dL (7-18); CALCIUM 7.6 mg/dL (8.5-10.1)
[2020-03-31 08:14] LABS: CREATININE 3.9 mg/dL (0.55-1.3)
[2020-03-31 08:15] LABS: BILIRUBIN,TOTAL 0.7 mg/dL (0.2-1)
[2020-03-31] MEDS: SODIUM CHLORIDE 0.45% 1,000 ML IV SCH (08:45)
[2020-03-31] MEDS ORDERED: INSULIN REGULAR HUMAN 100 UNITS/ML *VIAL IVPUSH ONE (09:00)
[2020-03-31] MEDS ORDERED: DEXTROSE 50%-WATER - 25 GM/50 ML VIAL IVPUSH ONE (09:00)
[2020-03-31] MEDS ORDERED: CALCIUM GLUCONATE 10% - 1,000 MG/10 ML VIAL IVPUSH ONE (09:00)
[2020-03-31 09:27] LABS: ERYTHROCYTE SEDIMENTATION RATE 103 mm/hr (0-20)
[2020-03-31] MEDS: risperiDONE 0.25 MG TABLET PO SCH ×3 (10:48→21:15)
[2020-03-31] MEDS: ALLOPURINOL 300 MG TABLET (FP) PO SCH (10:52)
[2020-03-31] MEDS: ALBUTEROL SO4 0.083% IH SOL 2.5 MG/3 ML VIAL.NEB. NEB SCH ×2 (11:05→11:06)
[2020-03-31] MEDS ORDERED: DEXTROSE 50%-WATER 25 GM/50 ML DISP.SYRIN ONE (11:20)
[2020-03-31] MEDS ORDERED: LORazepam 2 MG/ML SDV VIAL ONE (12:34)
[2020-03-31] MEDS: SODIUM ZIRCONIUM CYCLOSILICATE (LOKELMA) 5 GM PACKET PO SCH (14:46)
[2020-03-31] MEDS: CARVEDILOL 3.125 MG TABLET (FP) PO SCH ×2 (14:47→21:15)
[2020-03-31] MEDS: DIVALPROEX SODIUM 250 MG TABLET E.C. PO SCH ×3 (14:47→21:15)
[2020-03-31] MEDS: FLUDROCORTISONE ACETATE 0.1 MG TABLET (FP) PO SCH (14:47)
[2020-03-31] MEDS: PANTOPRAZOLE 40 MG TABLET PO SCH (14:47)
[2020-03-31] MEDS: COLLAGENASE CLOSTRIDIUM HIST. 30 GRAMS TUBE TP SCH (14:51)
[2020-03-31] MEDS: NOREPINEPHRINE BITARTRATE 16,000 MCG in SODIUM CHLORIDE 484 ML IV SCH (15:30)
[2020-03-31] MEDS ORDERED: LORazepam 2 MG/ML SDV VIAL IVPUSH ONE (15:45)
[2020-03-31] MEDS: LORazepam 2 MG/ML SDV VIAL IVPUSH PRN (18:00)
[2020-03-31 19:00] LABS: BLOOD UREA NITROGEN 75.8 mg/dL (7-18); CALCIUM 7.7 mg/dL (8.5-10.1)
[2020-03-31 19:04] LABS: CREATININE 3.7 mg/dL (0.55-1.3)
[2020-04-01] MEDS: NOREPINEPHRINE BITARTRATE 16,000 MCG in SODIUM CHLORIDE 484 ML IV SCH (00:15)
[2020-04-01] MEDS ORDERED: DEXTROSE 5%-WATER - 50 ML IVPB ONE ×3 (01:40→18:01)
[2020-04-01] MEDS ORDERED: PIPERACILLIN/TAZOBACTAM 2.25 GM VIAL IVPB ONE ×3 (01:40→18:00)
[2020-04-01] MEDS: PIPERACILLIN/TAZOB 2.25 GM 2.25 GM in DEXTROSE 5%-WATER - 50 ML IVPB SCH ×3 (02:02→18:03)
[2020-04-01 07:18] LABS: BASO % 1.6 % (0-2.0); EOS % 4.9 % (0-4.5); HEMATOCRIT 26.3 % (35.4-49); HEMOGLOBIN 8.3 GM/dL (11.7-16.9); LYMPH % 12.7 % (8-40); MCH 27.2 pg (25.7-33.7); MCHC 31.6 g/dl (32.0-35.9); MEAN CELL VOLUME 86.2 fl (80-96); MEAN PLT VOLUME 9.1 fl (7.5-11.1); MONO % 14.3 % (3.8-10.2); NEUT % 66.5 % (42.8-82.8); PLATELET COUNT 164 K/MM3 (134-434); RBC 3.06 M/mm3 (4.00-5.60); RDW 18.4 % (11.9-15.9); WHITE BLOOD COUNT 6.4 K/mm3 (4.0-10.0)
[2020-04-01 07:30] LABS: CREATININE 3.6 mg/dL (0.55-1.3)
[2020-04-01 07:31] LABS: ALBUMIN 1.5 g/dl (3.4-5.0); BLOOD UREA NITROGEN 74.3 mg/dL (7-18); PHOSPHOROUS 6.6 mg/dL (2.5-4.9)
[2020-04-01 07:32] LABS: BILIRUBIN,TOTAL 0.7 mg/dL (0.2-1); TOT PROT 6.5 g/dl (6.4-8.2)
[2020-04-01 07:33] LABS: CALCIUM 7.3 mg/dL (8.5-10.1); MAGNESIUM 1.7 mg/dL (1.8-2.4)
[2020-04-01 09:02] LABS: POTASSIUM 6.7 mmol/L (3.5-5.1)
[2020-04-01] MEDS ORDERED: DEXTROSE 50%-WATER - 25 GM/50 ML VIAL IVPUSH ONE (10:43)
[2020-04-01] MEDS ORDERED: INSULIN REGULAR HUMAN 100 UNITS/ML *VIAL IVPUSH ONE (10:43)
[2020-04-01] MEDS ORDERED: CALCIUM GLUCONATE 10% - 1,000 MG/10 ML VIAL IVPUSH ONE (10:43)
[2020-04-01] MEDS ORDERED: ALBUTEROL SO4 HFA INHALER IH ONE (10:44)
[2020-04-01] MEDS ORDERED: SODIUM BICARBONATE 8.4% 50 MEQ/50 ML VIAL IV ONE (10:46)
[2020-04-01] MEDS: PANTOPRAZOLE 40 MG TABLET PO SCH ×2 (10:57→11:00)
[2020-04-01] MEDS: SODIUM ZIRCONIUM CYCLOSILICATE (LOKELMA) 5 GM PACKET PO SCH ×2 (10:57→11:00)
[2020-04-01] MEDS: DIVALPROEX SODIUM 250 MG TABLET E.C. PO SCH ×4 (10:58→22:50)
[2020-04-01] MEDS: CARVEDILOL 3.125 MG TABLET (FP) PO SCH ×2 (10:58→22:08)
[2020-04-01] MEDS: ALLOPURINOL 300 MG TABLET (FP) PO SCH ×2 (10:59→11:00)
[2020-04-01] MEDS: risperiDONE 0.25 MG TABLET PO SCH ×4 (10:59→22:51)
[2020-04-01] MEDS: FLUDROCORTISONE ACETATE 0.1 MG TABLET (FP) PO SCH ×3 (10:59→22:27)
[2020-04-01] MEDS: SODIUM CHLORIDE 0.45% 1,000 ML IV SCH (11:33)
[2020-04-01] MEDS: COLLAGENASE CLOSTRIDIUM HIST. 30 GRAMS TUBE TP SCH (11:34)
[2020-04-01 11:55] LABS: CALCIUM 7.6 mg/dL (8.5-10.1)
[2020-04-01 11:56] LABS: BLOOD UREA NITROGEN 73.1 mg/dL (7-18)
[2020-04-01 11:59] LABS: CREATININE 3.5 mg/dL (0.55-1.3)
[2020-04-01 12:16] LABS: POTASSIUM 6.1 mmol/L (3.5-5.1)
[2020-04-01] MEDS ORDERED: DEXTROSE 50%-WATER 25 GM/50 ML DISP.SYRIN ONE (12:26)
[2020-04-01] MEDS ORDERED: FUROSEMIDE 40 MG TABLET (FP) PO ONE (13:30)
[2020-04-01] MEDS ORDERED: FUROSEMIDE 40 MG/4 ML INJECTABLE VIAL IVPUSH ONE (16:56)
[2020-04-01] MEDS ORDERED: PT OWN MED DRAWER 7, Y5N ONE ×2 (20:58→23:27)
[2020-04-01 21:47] LABS: ALBUMIN 1.5 g/dl (3.4-5.0); BLOOD UREA NITROGEN 68.1 mg/dL (7-18); CALCIUM 7.5 mg/dL (8.5-10.1)
[2020-04-01 21:51] LABS: CREATININE 3.4 mg/dL (0.55-1.3)
[2020-04-01 21:52] LABS: BILIRUBIN,TOTAL 0.6 mg/dL (0.2-1); TOT PROT 6.4 g/dl (6.4-8.2)
[2020-04-01] MEDS: SODIUM ZIRCONIUM CYCLOSILICATE (LOKELMA) 10 GM PACKET PO SCH ×2 (22:09→22:51)
[2020-04-02] MEDS ORDERED: PIPERACILLIN/TAZOBACTAM 2.25 GM VIAL IVPB ONE ×3 (00:25→16:27)
[2020-04-02] MEDS ORDERED: DEXTROSE 5%-WATER - 50 ML IVPB ONE ×3 (00:26→16:27)
[2020-04-02] MEDS: LORazepam 2 MG/ML SDV VIAL IVPUSH PRN ×2 (00:35→21:23)
[2020-04-02] MEDS: NOREPINEPHRINE BITARTRATE 16,000 MCG in SODIUM CHLORIDE 484 ML IV SCH (02:19)
[2020-04-02] MEDS: PIPERACILLIN/TAZOB 2.25 GM 2.25 GM in DEXTROSE 5%-WATER - 50 ML IVPB SCH ×3 (02:19→17:07)
[2020-04-02] MEDS ORDERED: FUROSEMIDE 40 MG/4 ML INJECTABLE VIAL IVPUSH ONE ×2 (09:00→20:00)
[2020-04-02] MEDS: PANTOPRAZOLE 40 MG TABLET PO SCH (10:00)
[2020-04-02] MEDS: risperiDONE 0.25 MG TABLET PO SCH ×2 (10:00→21:22)
[2020-04-02] MEDS: SODIUM CHLORIDE 0.45% 1,000 ML IV SCH (11:23)
[2020-04-02] MEDS: CARVEDILOL 3.125 MG TABLET (FP) PO SCH ×2 (11:24→21:44)
[2020-04-02] MEDS: COLLAGENASE CLOSTRIDIUM HIST. 30 GRAMS TUBE TP SCH (11:24)
[2020-04-02] MEDS: DIVALPROEX SODIUM 250 MG TABLET E.C. PO SCH ×2 (11:28→21:22)
[2020-04-02] MEDS: SODIUM ZIRCONIUM CYCLOSILICATE (LOKELMA) 5 GM PACKET PO SCH ×3 (11:28→22:04)
[2020-04-02] MEDS: HYDROCORTISONE SOD SUCCINATE 100 MG/2 ML VIAL IVPUSH SCH ×2 (13:14→17:04)
[2020-04-02] MEDS: ALLOPURINOL 300 MG TABLET (FP) PO SCH (13:14)
[2020-04-02] MEDS: FLUDROCORTISONE ACETATE 0.1 MG TABLET (FP) PO SCH (13:38)
[2020-04-02] MEDS ORDERED: PT OWN MED DRAWER 7, Y5N ONE (21:16)
[2020-04-03] MEDS ORDERED: DEXTROSE 5%-WATER - 50 ML IVPB ONE (01:11)
[2020-04-03] MEDS ORDERED: PIPERACILLIN/TAZOBACTAM 2.25 GM VIAL IVPB ONE (01:11)
[2020-04-03] MEDS ORDERED: PIPERACILLIN/TAZOB 2.25 GM 2.25 GM in DEXTROSE 5%-WATER - 50 ML IVPB ONE (01:26)
[2020-04-03] MEDS: HYDROCORTISONE SOD SUCCINATE 100 MG/2 ML VIAL IVPUSH SCH ×3 (02:45→18:08)
[2020-04-03 07:44] LABS: BASO % 0.4 % (0-2.0); EOS % 0.1 % (0-4.5); HEMATOCRIT 28.2 % (35.4-49); HEMOGLOBIN 8.9 GM/dL (11.7-16.9); LYMPH % 10.7 % (8-40); MCH 27.7 pg (25.7-33.7); MCHC 31.7 g/dl (32.0-35.9); MEAN CELL VOLUME 87.2 fl (80-96); MEAN PLT VOLUME 8.9 fl (7.5-11.1); MONO % 2.3 % (3.8-10.2); NEUT % 86.5 % (42.8-82.8); PLATELET COUNT 164 K/MM3 (134-434); RBC 3.23 M/mm3 (4.00-5.60); RDW 18.6 % (11.9-15.9)
[2020-04-03 08:06] LABS: ALBUMIN 1.5 g/dl (3.4-5.0)
[2020-04-03 08:07] LABS: BILIRUBIN,TOTAL 0.8 mg/dL (0.2-1); BLOOD UREA NITROGEN 66.9 mg/dL (7-18)
[2020-04-03 08:08] LABS: TOT PROT 6.7 g/dl (6.4-8.2)
[2020-04-03 08:09] LABS: CALCIUM 7.6 mg/dL (8.5-10.1); CREATININE 3.2 mg/dL (0.55-1.3); PHOSPHOROUS 6.3 mg/dL (2.5-4.9)
[2020-04-03 08:10] LABS: MAGNESIUM 1.7 mg/dL (1.8-2.4)
[2020-04-03] MEDS ORDERED: PT OWN MED DRAWER 7, Y5N ONE (09:03)
[2020-04-03] MEDS ORDERED: LORazepam 2 MG/ML SDV VIAL ONE (09:06)
[2020-04-03] MEDS: SODIUM CHLORIDE 0.45% 1,000 ML IV SCH (09:36)
[2020-04-03] MEDS: risperiDONE 0.25 MG TABLET PO SCH (09:37)
[2020-04-03] MEDS: ALLOPURINOL 300 MG TABLET (FP) PO SCH (09:37)
[2020-04-03] MEDS: CARVEDILOL 3.125 MG TABLET (FP) PO SCH (09:37)
[2020-04-03] MEDS: DIVALPROEX SODIUM 250 MG TABLET E.C. PO SCH (09:37)
[2020-04-03] MEDS: PANTOPRAZOLE 40 MG TABLET PO SCH (09:37)
[2020-04-03] MEDS: COLLAGENASE CLOSTRIDIUM HIST. 30 GRAMS TUBE TP SCH (09:38)
[2020-04-03] MEDS: SODIUM ZIRCONIUM CYCLOSILICATE (LOKELMA) 5 GM PACKET PO SCH (09:38)
[2020-04-03] MEDS: LORazepam 2 MG/ML SDV VIAL IVPUSH PRN ×3 (09:38→21:19)
[2020-04-03] MEDS ORDERED: FUROSEMIDE 40 MG/4 ML INJECTABLE VIAL IVPUSH ONE ×2 (10:08→17:31)
[2020-04-03 13:31] VITALS: BMI 32.2
[2020-04-03] MEDS ORDERED: SODIUM CHLORIDE 0.45% 1,000 ML IV SCH (17:30)
[2020-04-04] MEDS: CARVEDILOL 3.125 MG TABLET (FP) PO SCH ×3 (00:40→23:08)
[2020-04-04] MEDS: SODIUM ZIRCONIUM CYCLOSILICATE (LOKELMA) 5 GM PACKET PO SCH (00:41)
[2020-04-04] MEDS: DIVALPROEX SODIUM 250 MG TABLET E.C. PO SCH ×3 (00:41→23:08)
[2020-04-04] MEDS: risperiDONE 0.25 MG TABLET PO SCH ×3 (00:41→23:08)
[2020-04-04] MEDS: HYDROCORTISONE SOD SUCCINATE 100 MG/2 ML VIAL IVPUSH SCH ×3 (01:58→17:04)
[2020-04-04] MEDS ORDERED: AMMONIUM LACTATE 12% LOTION 225 GM BOTTLE TP PRN (03:14)
[2020-04-04] MEDS ORDERED: ACETAMINOPHEN 325 MG TABLET (FP) PO PRN (03:14)
[2020-04-04] MEDS: SODIUM CHLORIDE 0.45% 1,000 ML IV SCH (10:41)
[2020-04-04] MEDS: COLLAGENASE CLOSTRIDIUM HIST. 30 GRAMS TUBE TP SCH (10:48)
[2020-04-04] MEDS: SODIUM ZIRCONIUM CYCLOSILICATE (LOKELMA) 10 GM PACKET PO SCH ×2 (10:48→23:08)
[2020-04-04] MEDS: PANTOPRAZOLE 40 MG TABLET PO SCH (10:48)
[2020-04-04] MEDS: ALLOPURINOL 300 MG TABLET (FP) PO SCH (10:49)
[2020-04-04] MEDS ORDERED: PT OWN MED DRAWER 7, Y5N ONE (22:54)
[2020-04-05] MEDS: HYDROCORTISONE SOD SUCCINATE 100 MG/2 ML VIAL IVPUSH SCH ×3 (01:38→18:04)
[2020-04-05] MEDS: SODIUM CHLORIDE 0.45% 1,000 ML IV SCH (05:30)
[2020-04-05 07:21] LABS: BASO % 1.3 % (0-2.0); HEMOGLOBIN 10.2 GM/dL (11.7-16.9); MCH 27.2 pg (25.7-33.7); MCHC 31.8 g/dl (32.0-35.9); MEAN CELL VOLUME 85.5 fl (80-96); MEAN PLT VOLUME 9.2 fl (7.5-11.1); MONO % 2.4 % (3.8-10.2); NEUT % 87.3 % (42.8-82.8); PLATELET COUNT 173 K/MM3 (134-434); RBC 3.75 M/mm3 (4.00-5.60); RDW 18.6 % (11.9-15.9); WHITE BLOOD COUNT 4.6 K/mm3 (4.0-10.0)
[2020-04-05 07:31] LABS: POTASSIUM 5.4 mmol/L (3.5-5.1)
[2020-04-05 07:39] LABS: ALBUMIN 1.4 g/dl (3.4-5.0); BLOOD UREA NITROGEN 83.2 mg/dL (7-18)
[2020-04-05 07:40] LABS: BILIRUBIN,TOTAL 0.5 mg/dL (0.2-1); CALCIUM 7.1 mg/dL (8.5-10.1); TOT PROT 6.1 g/dl (6.4-8.2)
[2020-04-05 07:41] LABS: MAGNESIUM 1.7 mg/dL (1.8-2.4)
[2020-04-05] MEDS ORDERED: PT OWN MED DRAWER 7, Y5N ONE ×2 (10:04→22:18)
[2020-04-05] MEDS: risperiDONE 0.25 MG TABLET PO SCH ×2 (10:07→22:46)
[2020-04-05] MEDS: ALLOPURINOL 300 MG TABLET (FP) PO SCH (10:07)
[2020-04-05] MEDS: CARVEDILOL 3.125 MG TABLET (FP) PO SCH ×2 (10:07→22:46)
[2020-04-05] MEDS: DIVALPROEX SODIUM 250 MG TABLET E.C. PO SCH ×2 (10:08→22:45)
[2020-04-05] MEDS: SODIUM ZIRCONIUM CYCLOSILICATE (LOKELMA) 10 GM PACKET PO SCH ×3 (10:08→23:19)
[2020-04-05] MEDS: PANTOPRAZOLE 40 MG TABLET PO SCH (10:08)
[2020-04-05] MEDS: COLLAGENASE CLOSTRIDIUM HIST. 30 GRAMS TUBE TP SCH (10:35)
[2020-04-05] MEDS ORDERED: SODIUM CHLORIDE 0.45% 1,000 ML IV SCH ×2 (12:18→12:30)
[2020-04-06] MEDS: HYDROCORTISONE SOD SUCCINATE 100 MG/2 ML VIAL IVPUSH SCH ×3 (01:40→21:26)
[2020-04-06] MEDS: PANTOPRAZOLE 40 MG TABLET PO SCH (10:20)
[2020-04-06] MEDS: COLLAGENASE CLOSTRIDIUM HIST. 30 GRAMS TUBE TP SCH (10:20)
[2020-04-06] MEDS: risperiDONE 0.25 MG TABLET PO SCH ×2 (10:20→21:26)
[2020-04-06] MEDS: DIVALPROEX SODIUM 250 MG TABLET E.C. PO SCH ×2 (10:20→21:26)
[2020-04-06] MEDS: ALLOPURINOL 300 MG TABLET (FP) PO SCH (10:20)
[2020-04-06] MEDS: CARVEDILOL 3.125 MG TABLET (FP) PO SCH ×2 (10:20→21:26)
[2020-04-06] MEDS: SODIUM ZIRCONIUM CYCLOSILICATE (LOKELMA) 10 GM PACKET PO SCH (10:20)
[2020-04-06 10:29] LABS: BASO % 0.3 % (0-2.0); HEMATOCRIT 33.1 % (35.4-49); HEMOGLOBIN 10.4 GM/dL (11.7-16.9); LYMPH % 7.1 % (8-40); MCH 27.4 pg (25.7-33.7); MCHC 31.6 g/dl (32.0-35.9); MEAN CELL VOLUME 86.7 fl (80-96); MEAN PLT VOLUME 9.4 fl (7.5-11.1); MONO % 3.2 % (3.8-10.2); NEUT % 89.4 % (42.8-82.8); PLATELET COUNT 129 K/MM3 (134-434); RBC 3.81 M/mm3 (4.00-5.60); RDW 19.2 % (11.9-15.9); WHITE BLOOD COUNT 5.2 K/mm3 (4.0-10.0)
[2020-04-06 10:54] LABS: POTASSIUM 5.1 mmol/L (3.5-5.1)
[2020-04-06 10:59] LABS: ALBUMIN 1.5 g/dl (3.4-5.0); BLOOD UREA NITROGEN 88.6 mg/dL (7-18); CALCIUM 7.2 mg/dL (8.5-10.1); MAGNESIUM 1.9 mg/dL (1.8-2.4)
[2020-04-06 11:04] LABS: TOT PROT 6.3 g/dl (6.4-8.2)
[2020-04-06 11:10] LABS: BILIRUBIN,TOTAL 0.4 mg/dL (0.2-1)
[2020-04-07 07:13] LABS: BASO % 0.4 % (0-2.0); HEMATOCRIT 30.3 % (35.4-49); HEMOGLOBIN 9.6 GM/dL (11.7-16.9); LYMPH % 8.9 % (8-40); MCH 27.2 pg (25.7-33.7); MCHC 31.5 g/dl (32.0-35.9); MEAN CELL VOLUME 86.2 fl (80-96); MONO % 3.8 % (3.8-10.2); NEUT % 86.9 % (42.8-82.8); PLATELET COUNT 115 K/MM3 (134-434); RBC 3.52 M/mm3 (4.00-5.60); RDW 18.8 % (11.9-15.9); WHITE BLOOD COUNT 4.7 K/mm3 (4.0-10.0)
[2020-04-07 07:20] LABS: POTASSIUM 4.7 mmol/L (3.5-5.1)
[2020-04-07 07:27] LABS: CREATININE 2.9 mg/dL (0.55-1.3)
[2020-04-07 07:28] LABS: CALCIUM 7.2 mg/dL (8.5-10.1)
[2020-04-07 07:29] LABS: ALBUMIN 1.5 g/dl (3.4-5.0); BILIRUBIN,TOTAL 0.4 mg/dL (0.2-1); MAGNESIUM 1.8 mg/dL (1.8-2.4)
[2020-04-07] MEDS ORDERED: PT OWN MED DRAWER 7, Y5N ONE (09:41)
[2020-04-07] MEDS ORDERED: SODIUM ZIRCONIUM CYCLOSILICATE (LOKELMA) 10 GM PACKET PO SCH ×2 (10:00→12:37)
[2020-04-07] MEDS: PANTOPRAZOLE 40 MG TABLET PO SCH (10:19)
[2020-04-07] MEDS: CARVEDILOL 3.125 MG TABLET (FP) PO SCH ×2 (10:19→21:23)
[2020-04-07] MEDS: risperiDONE 0.25 MG TABLET PO SCH ×2 (10:19→21:23)
[2020-04-07] MEDS: DIVALPROEX SODIUM 250 MG TABLET E.C. PO SCH ×2 (10:19→21:23)
[2020-04-07] MEDS: ALLOPURINOL 300 MG TABLET (FP) PO SCH (10:20)
[2020-04-07] MEDS: COLLAGENASE CLOSTRIDIUM HIST. 30 GRAMS TUBE TP SCH (11:17)
[2020-04-07] MEDS ORDERED: HYDROCORTISONE SOD SUCCINATE 100 MG/2 ML VIAL IVPB ONE (22:00)
[2020-04-08 08:20] LABS: BASO % 0.1 % (0-2.0); EOS % 0.1 % (0-4.5); HEMATOCRIT 31.9 % (35.4-49); HEMOGLOBIN 10.1 GM/dL (11.7-16.9); LYMPH % 6.7 % (8-40); MCH 27.2 pg (25.7-33.7); MCHC 31.6 g/dl (32.0-35.9); MEAN CELL VOLUME 86.2 fl (80-96); MEAN PLT VOLUME 9.7 fl (7.5-11.1); MONO % 3.8 % (3.8-10.2); NEUT % 89.3 % (42.8-82.8); PLATELET COUNT 106 K/MM3 (134-434); RBC 3.71 M/mm3 (4.00-5.60); RDW 18.6 % (11.9-15.9); WHITE BLOOD COUNT 5.7 K/mm3 (4.0-10.0)
[2020-04-08 08:37] LABS: POTASSIUM 4.6 mmol/L (3.5-5.1)
[2020-04-08 08:39] LABS: ALBUMIN 1.6 g/dl (3.4-5.0); BLOOD UREA NITROGEN 81.2 mg/dL (7-18); CALCIUM 7.7 mg/dL (8.5-10.1)
[2020-04-08 08:43] LABS: CREATININE 2.7 mg/dL (0.55-1.3)
[2020-04-08 08:44] LABS: BILIRUBIN,TOTAL 0.4 mg/dL (0.2-1)
[2020-04-08] MEDS ORDERED: SODIUM ZIRCONIUM CYCLOSILICATE (LOKELMA) 5 GM PACKET PO SCH (10:00)
[2020-04-08] MEDS ORDERED: PT OWN MED DRAWER 7, Y5N ONE (10:09)
[2020-04-08] MEDS: ALLOPURINOL 300 MG TABLET (FP) PO SCH (10:17)
[2020-04-08] MEDS: PANTOPRAZOLE 40 MG TABLET PO SCH (10:17)
[2020-04-08] MEDS: CARVEDILOL 3.125 MG TABLET (FP) PO SCH (10:17)
[2020-04-08] MEDS: DIVALPROEX SODIUM 250 MG TABLET E.C. PO SCH (10:17)
[2020-04-08] MEDS: risperiDONE 0.25 MG TABLET PO SCH (10:18)
[2020-04-08] MEDS ORDERED: predniSONE 20 MG TABLET (UD) PO SCH (11:15)
[2020-04-08] MEDS ORDERED: NYSTATIN 500,000 UNITS/5 ML SUSPENSION PO SCH (12:00)
[2020-04-08 14:24] VITALS: BP 112/60; PULSE 98; TEMP 97.9
[2020-04-08] MEDS: COLLAGENASE CLOSTRIDIUM HIST. 30 GRAMS TUBE TP SCH (14:28)
[2020-04-08] MEDS ORDERED: CEPHALEXIN MONOHYDRATE 500 MG CAPSULE (UD) PO ONE (14:45)
== END 2020-04-08 18:04 | DRG 811 ==
LOC: JER 14:42 → JERBED 16:42 → JICU 18:30 → J4S 04-04 03:15
PROVIDERS: ADMIT Family Medicine; ATTEND Nurse Practitioner Family
PROC: 30233L1 Transfusion of Nonautologous Fresh Plasma into Peripheral Vein, Percutaneous Approach (ICD-10-PCS; principal; 2020-03-29)
PROC: 30233R1 Transfusion of Nonautologous Platelets into Peripheral Vein, Percutaneous Approach (ICD-10-PCS; 2020-03-29)
PROC: 30233N1 Transfusion of Nonautologous Red Blood Cells into Peripheral Vein, Percutaneous Approach (ICD-10-PCS; 2020-03-30)
DX: D62 Acute posthemorrhagic anemia (principal); R57.8 Other shock; U07.1 COVID-19; G93.41 Metabolic encephalopathy; A41.9 Sepsis, unspecified organism; I13.0 Hypertensive heart and chronic kidney disease with heart failure and stage 1 through stage 4 chronic kidney disease, or unspecified chronic kidney disease; N18.4 Chronic kidney disease, stage 4 (severe); I50.32 Chronic diastolic (congestive) heart failure; N17.9 Acute kidney failure, unspecified; N39.0 Urinary tract infection, site not specified; I48.91 Unspecified atrial fibrillation; I73.9 Peripheral vascular disease, unspecified; I95.89 Other hypotension; I83.019 Varicose veins of right lower extremity with ulcer of unspecified site; I83.029 Varicose veins of left lower extremity with ulcer of unspecified site; M10.9 Gout, unspecified; E87.5 Hyperkalemia; Z66 Do not resuscitate
CPT/HCPCS: 36415; 36430; 71045-TC-FY; 80048; 80053; 81003; 82728; 83605; 83615; 83735; 84100; 84484; 85025; 85027; 85379; 85384; 85610; 85651; 85730; 86140; 86850; 86900; 86901; 86922; 87040; 87086; 87186; 93005; 93010; 99291; C9803; G0480; P9017; P9034; P9058; U0003

== ENCOUNTER 2020-04-12 15:21 | Emergency (ER) | payer OTHER, BC ==
[2020-04-12 17:10] LABS: BASO % 0.3 % (0-2.0); EOS % 2.4 % (0-4.5); HEMATOCRIT 33.2 % (35.4-49); HEMOGLOBIN 10.4 GM/dL (11.7-16.9); LYMPH % 4.7 % (8-40); MCH 27.5 pg (25.7-33.7); MCHC 31.4 g/dl (32.0-35.9); MEAN CELL VOLUME 87.8 fl (80-96); MEAN PLT VOLUME 9.8 fl (7.5-11.1); MONO % 6.5 % (3.8-10.2); NEUT % 86.1 % (42.8-82.8); PLATELET COUNT 201 K/MM3 (134-434); RBC 3.78 M/mm3 (4.00-5.60); RDW 19.7 % (11.9-15.9); WHITE BLOOD COUNT 10.3 K/mm3 (4.0-10.0)
[2020-04-12 17:14] VITALS: TEMP 98.7; BMI 31.6
[2020-04-12 17:18] LABS: INR 1.34 (0.83-1.09); PROTHROMBIN TIME (PATIENT) 16.3 SEC (9.7-13.0)
[2020-04-12 17:30] LABS: POTASSIUM 4.5 mmol/L (3.5-5.1)
[2020-04-12 17:32] LABS: ALBUMIN 1.8 g/dl (3.4-5.0); BLOOD UREA NITROGEN 64.9 mg/dL (7-18)
[2020-04-12 17:37] LABS: BILIRUBIN,TOTAL 0.6 mg/dL (0.2-1); TOT PROT 6.7 g/dl (6.4-8.2)
[2020-04-12] MEDS ORDERED: ACETAMINOPHEN 1000 MG/100 ML VIAL (NON FORMULARY) IVPB ONE (17:45)
[2020-04-12] MEDS ORDERED: ACETAMINOPHEN INJECTION 100 ML IVPB ONE (18:28)
[2020-04-12] MEDS ORDERED: ACETAMINOPHEN 500 MG TABLET (FP) PO ONE (18:45)
[2020-04-12] MEDS ORDERED: ACETAMINOPHEN 325 MG TABLET (FP) ONE (18:46)
[2020-04-12 20:54] VITALS: BP 109/82; PULSE 95
== END 2020-04-12 21:09 ==
LOC: SUPCPDRO 15:21 → JER 15:21
PROC: 3E033NZ Introduction of Analgesics, Hypnotics, Sedatives into Peripheral Vein, Percutaneous Approach (ICD-10-PCS; principal; 2020-04-12)
DX: R60.0 Localized edema (principal); I87.311 Chronic venous hypertension (idiopathic) with ulcer of right lower extremity
CPT/HCPCS: 36415; 80053; 85025; 85610; 85730; 86850; 86900; 86901; 99285-25

== ENCOUNTER 2020-05-31 16:19 | Inpatient (IN) | payer OTHER, BC ==
[2020-05-31 17:13] LABS: BASO % 0.8 % (0-2.0); EOS % 0.1 % (0-4.5); HEMATOCRIT 28.6 % (35.4-49); HEMOGLOBIN 8.8 GM/dL (11.7-16.9); LYMPH % 7.9 % (8-40); MCH 29.3 pg (25.7-33.7); MCHC 30.7 g/dl (32.0-35.9); MEAN CELL VOLUME 95.6 fl (80-96); MEAN PLT VOLUME 9.6 fl (7.5-11.1); MONO % 9.2 % (3.8-10.2); PLATELET COUNT 154 K/MM3 (134-434); RBC 2.99 M/mm3 (4.00-5.60); RDW 20.7 % (11.9-15.9); VENOUS BASE EXCESS -1.3 mmol/L (-2-2); VENOUS O2 SATURATION 74.2 % (70-80); WHITE BLOOD COUNT 10.3 K/mm3 (4.0-10.0)
[2020-05-31 17:21] LABS: VENOUS PH 7.182 (7.310-7.410)
[2020-05-31 17:32] LABS: INR 1.56 (0.83-1.09); PROTHROMBIN TIME (PATIENT) 18.9 SEC (9.7-13.0)
[2020-05-31 17:34] LABS: ACTIVATED PTT 34.9 SECONDS (25.2-36.5)
[2020-05-31 18:08] LABS: N-TERMINAL BNP 42211.6 pg/ml (5-125)
[2020-05-31 18:19] LABS: BILIRUBIN,DIRECT 0.3 mg/dL (0.0-0.2)
[2020-05-31 18:29] LABS: ARTERIAL BLD GAS O2 SATURATION 98.8 mmHg (95-98); ARTERIAL BLOOD GAS BASE EXCESS -0.9 mmol/L (-2-2); ARTERIAL BLOOD GAS PO2 167.5 mmHg (80-100); ARTERIAL BLOOD GAS pH 7.253 (7.350-7.450)
[2020-05-31 18:35] LABS: ALLENS TEST POSITIVE
[2020-05-31] MEDS ORDERED: morphine CARPU-JECT 10 MG/1 ML DISP.SYRIN IVPUSH ONE (18:38)
[2020-05-31] MEDS ORDERED: MORPHINE SULFATE 2 MG/ML VIAL ONE (18:45)
[2020-05-31] MEDS ORDERED: morphine SULFATE 4 MG/ML VIAL ONE (18:45)
[2020-05-31 18:50] LABS: CALCIUM 8.1 mg/dL (8.5-10.1)
[2020-05-31 18:51] LABS: ALBUMIN 2.1 g/dl (3.4-5.0); BLOOD UREA NITROGEN 61.3 mg/dL (7-18)
[2020-05-31 18:54] LABS: CREATININE 3.1 mg/dL (0.55-1.3)
[2020-05-31 18:56] LABS: BILIRUBIN,TOTAL 0.5 mg/dL (0.2-1); TOT PROT 6.6 g/dl (6.4-8.2)
[2020-05-31 19:14] LABS: POTASSIUM 6.3 mmol/L (3.5-5.1)
[2020-05-31 19:38] LABS: ANISOCYTOSIS 2+; MACROCYTOSIS 1+; PLATELET ESTIMATE NORMAL
[2020-05-31 21:51] LABS: BLOOD UREA NITROGEN 60.9 mg/dL (7-18); CALCIUM 8.2 mg/dL (8.5-10.1)
[2020-05-31 21:54] LABS: CREATININE 3.2 mg/dL (0.55-1.3)
[2020-05-31] MEDS ORDERED: PIPERACILLIN/TAZOB 4.5 GM 4.5 GM in DEXTROSE 5%-WATER 100 ML IVPB ONE (21:56)
[2020-05-31] MEDS ORDERED: VANCOMYCIN 1 GRAM (PRE-DOCKED) 1,000 MG/250 ML BAG IVPB ONE (22:01)
[2020-05-31 22:10] LABS: POTASSIUM 6.5 mmol/L (3.5-5.1)
[2020-05-31] MEDS ORDERED: DEXTROSE 50%-WATER - 25 GM/50 ML VIAL IVPUSH ONE (22:10)
[2020-05-31] MEDS ORDERED: INSULIN REGULAR HUMAN 100 UNITS/ML *VIAL IVPUSH ONE (22:10)
[2020-05-31] MEDS ORDERED: CALCIUM GLUCONATE 10% - 1,000 MG/10 ML VIAL IVPUSH ONE (22:10)
[2020-05-31] MEDS ORDERED: DEXTROSE 50%-WATER 25 GM/50 ML DISP.SYRIN ONE ×2 (22:17→22:20)
[2020-05-31] MEDS ORDERED: CALCIUM GLUCONATE 10% - 1,000 MG/10 ML VIAL ONE (22:17)
[2020-05-31] MEDS ORDERED: INSULIN REGULAR HUMAN 100 UNITS/ML *VIAL ONE (22:18)
[2020-05-31] MEDS ORDERED: PIPERACILLIN/TAZOB 4.5 GM 4.5 GM/100 ML BAG IVPB ONE (22:18)
[2020-05-31 23:59] LABS: EPI CELLS >36 /uL (0-25.1); HYALINE CASTS 1137 /uL (0-3.1); URINE APPEARANCE TURBID; URINE BACTERIA 1048 /uL (0-1359); URINE BILIRUBIN 1+ (NEGATIVE); URINE COLOR ORANGE; URINE GLUCOSE (UA) NEGATIVE (NEGATIVE); URINE KETONE TRACE (NEGATIVE); URINE LEUK ESTERASE 3+ (NEGATIVE); URINE NITRITE NEGATIVE (NEGATIVE); URINE PROTEIN 3+ (NEGATIVE); URINE RBC 4891 /uL (0-23.9); URINE WBC 20566 /uL (0-25.8)
[2020-06-01 02:54] LABS: CALCIUM 8.4 mg/dL (8.5-10.1)
[2020-06-01 02:59] LABS: CREATININE 3.3 mg/dL (0.55-1.3)
[2020-06-01 03:01] LABS: BLOOD UREA NITROGEN 62.2 mg/dL (7-18)
[2020-06-01 03:37] LABS: POTASSIUM 6.5 mmol/L (3.5-5.1)
[2020-06-01] MEDS ORDERED: DEXTROSE 50%-WATER - 25 GM/50 ML VIAL IVPUSH ONE ×6 (03:51→09:04)
[2020-06-01] MEDS ORDERED: CALCIUM GLUCONATE 10% - 1,000 MG/10 ML VIAL IVPUSH ONE (03:52)
[2020-06-01] MEDS ORDERED: INSULIN REGULAR HUMAN 100 UNITS/ML *VIAL IVPUSH ONE (03:52)
[2020-06-01] MEDS ORDERED: DEXTROSE 50%-WATER 25 GM/50 ML DISP.SYRIN ONE ×5 (03:58→12:25)
[2020-06-01] MEDS ORDERED: SODIUM ZIRCONIUM CYCLOSILICATE (LOKELMA) 5 GM PACKET PO ONE (04:17)
[2020-06-01 06:57] LABS: BASO % 0.3 % (0-2.0); EOS % 0.6 % (0-4.5); HEMOGLOBIN 8.5 GM/dL (11.7-16.9); LYMPH % 9.8 % (8-40); MCH 29.6 pg (25.7-33.7); MCHC 31.4 g/dl (32.0-35.9); MEAN CELL VOLUME 94.1 fl (80-96); MEAN PLT VOLUME 9.8 fl (7.5-11.1); MONO % 12.8 % (3.8-10.2); NEUT % 76.5 % (42.8-82.8); PLATELET COUNT 154 K/MM3 (134-434); RBC 2.87 M/mm3 (4.00-5.60); RDW 20.2 % (11.9-15.9); WHITE BLOOD COUNT 9.2 K/mm3 (4.0-10.0)
[2020-06-01 07:29] LABS: BLOOD UREA NITROGEN 62.2 mg/dL (7-18)
[2020-06-01 07:30] LABS: CALCIUM 8.3 mg/dL (8.5-10.1)
[2020-06-01 07:31] LABS: ALBUMIN 2.1 g/dl (3.4-5.0)
[2020-06-01 07:34] LABS: CREATININE 3.3 mg/dL (0.55-1.3)
[2020-06-01 07:35] LABS: BILIRUBIN,TOTAL 0.4 mg/dL (0.2-1); TOT PROT 6.7 g/dl (6.4-8.2)
[2020-06-01 07:41] LABS: POTASSIUM 6.3 mmol/L (3.5-5.1)
[2020-06-01] MEDS ORDERED: PIPERACILLIN/TAZOB 2.25 GM 2.25 GM in DEXTROSE 5%-WATER - 50 ML IVPB SCH (09:00)
[2020-06-01] MEDS ORDERED: PIPERACILLIN/TAZOB 2.25 GM 2.25 GM/50 ML BAG IVPB ONE ×2 (09:30→15:06)
[2020-06-01] MEDS ORDERED: APIXABAN 2.5 MG TABLET ONE (09:30)
[2020-06-01] MEDS: PIPERACILLIN/TAZOB 2.25 GM 2.25 GM in DEXTROSE 5%-WATER - 50 ML IVPB SCH ×3 (09:41→21:44)
[2020-06-01] MEDS: DIVALPROEX SODIUM 250 MG TABLET E.C. PO SCH ×2 (09:42→21:46)
[2020-06-01] MEDS: APIXABAN 2.5 MG TABLET PO SCH ×2 (09:42→21:46)
[2020-06-01] MEDS ORDERED: VANCOMYCIN HCL 1,500 MG in DEXTROSE 5%-WATER - 500 ML IVPB SCH (10:00)
[2020-06-01] MEDS ORDERED: ALBUTEROL SO4 0.083% IH SOL 2.5 MG/3 ML VIAL.NEB. NEB PRN (10:37)
[2020-06-01] MEDS ORDERED: SODIUM BICARBONATE 8.4% 50 MEQ/50 ML DISP.SYRIN IVPUSH ONE (10:37)
[2020-06-01] MEDS ORDERED: FUROSEMIDE 40 MG/4 ML INJECTABLE VIAL IVPUSH ONE (10:37)
[2020-06-01] MEDS ORDERED: SODIUM ZIRCONIUM CYCLOSILICATE (LOKELMA) 5 GM PACKET PO SCH ×2 (10:45→22:00)
[2020-06-01] MEDS ORDERED: DEXTROSE 5%-WATER - 1,000 ML IV SCH ×3 (10:45→13:31)
[2020-06-01] MEDS ORDERED: SODIUM ZIRCONIUM CYCLOSILICATE (LOKELMA) 5 GM PACKET ONE (12:25)
[2020-06-01] MEDS ORDERED: SODIUM BICARBONATE 8.4% - 50 ML ONE (12:25)
[2020-06-01] MEDS ORDERED: FUROSEMIDE 40 MG/4 ML INJECTABLE VIAL ONE (12:26)
[2020-06-01] MEDS ORDERED: PANTOPRAZOLE 40 MG TABLET ONE (14:23)
[2020-06-01] MEDS: PANTOPRAZOLE 40 MG TABLET PO SCH (14:33)
[2020-06-01] MEDS: POLYETHYLENE GLYCOL 3350 255 GM BTL PO SCH (14:33)
[2020-06-01 17:22] LABS: BLOOD UREA NITROGEN 61.4 mg/dL (7-18); CALCIUM 7.9 mg/dL (8.5-10.1)
[2020-06-01 17:25] LABS: CREATININE 3.5 mg/dL (0.55-1.3)
[2020-06-01 17:27] LABS: BILIRUBIN,TOTAL 0.5 mg/dL (0.2-1); TOT PROT 6.4 g/dl (6.4-8.2)
[2020-06-01 17:57] LABS: POTASSIUM 6.3 mmol/L (3.5-5.1)
[2020-06-01] MEDS: FERROUS SO4 325 MG TABLET (FP) PO SCH (18:10)
[2020-06-01] MEDS ORDERED: ALBUTEROL SO4 2.5/IPRATROPIUM 0.5 INH SOL 3 ML VIAL.NEB. NEB PRN (19:29)
[2020-06-01] MEDS ORDERED: PIPERACILLIN/TAZOBACTAM 2.25 GM VIAL IVPB ONE (21:38)
[2020-06-01] MEDS ORDERED: DEXTROSE 5%-WATER - 50 ML IVPB ONE (21:38)
[2020-06-01] MEDS: SENNOSIDES 8.6MG TABLET (FP) PO SCH (21:46)
[2020-06-01] MEDS: DEXTROSE 5%-WATER - 1,000 ML IV SCH (21:46)
[2020-06-01] MEDS: CARVEDILOL 6.25 MG TABLET (FP) PO SCH (21:46)
[2020-06-01] MEDS: ACETAMINOPHEN 325 MG TABLET (FP) PO PRN (21:48)
[2020-06-01] MEDS ORDERED: diphenhydrAMINE HCL 25 MG CAPSULE (FP) PO ONE (22:20)
[2020-06-01] MEDS: NYSTATIN POWDER 100,000 UNITS/GM - 15 GM TOPICAL POWDER TP SCH (22:40)
[2020-06-02] MEDS ORDERED: ACETAMINOPHEN WITH CODEINE 300MG/30MG TABLET PO ONE (01:15)
[2020-06-02] MEDS ORDERED: DEXTROSE 5%-WATER - 50 ML IVPB ONE ×3 (02:36→22:05)
[2020-06-02] MEDS ORDERED: PIPERACILLIN/TAZOBACTAM 2.25 GM VIAL IVPB ONE ×3 (02:36→22:05)
[2020-06-02] MEDS: PIPERACILLIN/TAZOB 2.25 GM 2.25 GM in DEXTROSE 5%-WATER - 50 ML IVPB SCH ×3 (02:42→22:08)
[2020-06-02] MEDS ORDERED: oxyCODONE HCL 5 MG TABLET PO PRN (08:17)
[2020-06-02] MEDS ORDERED: PT OWN MED DRAWER 7, Y5N ONE ×4 (10:13→22:38)
[2020-06-02] MEDS: FERROUS SO4 325 MG TABLET (FP) PO SCH ×2 (10:21→17:31)
[2020-06-02 11:31] LABS: CALCIUM 7.7 mg/dL (8.5-10.1)
[2020-06-02 11:32] LABS: BLOOD UREA NITROGEN 61.1 mg/dL (7-18)
[2020-06-02 11:35] LABS: CREATININE 3.4 mg/dL (0.55-1.3)
[2020-06-02 12:00] LABS: POTASSIUM 7.1 mmol/L (3.5-5.1)
[2020-06-02] MEDS: DIVALPROEX SODIUM 250 MG TABLET E.C. PO SCH ×2 (13:28→22:35)
[2020-06-02] MEDS: APIXABAN 2.5 MG TABLET PO SCH ×2 (13:28→22:33)
[2020-06-02] MEDS: CARVEDILOL 6.25 MG TABLET (FP) PO SCH ×2 (13:28→22:36)
[2020-06-02] MEDS: COLCHICINE 0.6 MG TAB PO SCH (13:28)
[2020-06-02] MEDS: FOLIC ACID 1 MG TABLET (FP) PO SCH (13:28)
[2020-06-02] MEDS: NYSTATIN POWDER 100,000 UNITS/GM - 15 GM TOPICAL POWDER TP SCH ×2 (13:29→22:35)
[2020-06-02] MEDS: PANTOPRAZOLE 40 MG TABLET PO SCH (13:29)
[2020-06-02] MEDS: SODIUM ZIRCONIUM CYCLOSILICATE (LOKELMA) 10 GM PACKET PO SCH ×2 (13:29→22:35)
[2020-06-02] MEDS: POLYETHYLENE GLYCOL 3350 255 GM BTL PO SCH (13:29)
[2020-06-02] MEDS: ASCORBIC ACID 500 MG TABLET (FP) PO SCH (13:29)
[2020-06-02 15:59] LABS: BLOOD UREA NITROGEN 61.4 mg/dL (7-18); CALCIUM 7.9 mg/dL (8.5-10.1)
[2020-06-02 16:00] LABS: ALBUMIN 1.9 g/dl (3.4-5.0)
[2020-06-02 16:02] LABS: CREATININE 3.4 mg/dL (0.55-1.3)
[2020-06-02 16:13] LABS: POTASSIUM 6.3 mmol/L (3.5-5.1)
[2020-06-02] MEDS: DEXTROSE 5%-WATER - 1,000 ML IV SCH (16:31)
[2020-06-02] MEDS ORDERED: CALCIUM GLUCONATE 10% - 1,000 MG/10 ML VIAL IVPUSH ONE (16:38)
[2020-06-02] MEDS ORDERED: SODIUM BICARBONATE 8.4% 50 MEQ/50 ML VIAL IVPUSH ONE (16:38)
[2020-06-02] MEDS: FUROSEMIDE 40 MG/4 ML INJECTABLE VIAL IVPUSH SCH (17:09)
[2020-06-02] MEDS: SENNOSIDES 8.6MG TABLET (FP) PO SCH (22:35)
[2020-06-03] MEDS ORDERED: PIPERACILLIN/TAZOBACTAM 2.25 GM VIAL IVPB ONE ×4 (02:48→20:56)
[2020-06-03] MEDS ORDERED: DEXTROSE 5%-WATER - 50 ML IVPB ONE ×4 (02:49→20:57)
[2020-06-03] MEDS: PIPERACILLIN/TAZOB 2.25 GM 2.25 GM in DEXTROSE 5%-WATER - 50 ML IVPB SCH ×4 (03:03→21:03)
[2020-06-03] MEDS: FUROSEMIDE 40 MG/4 ML INJECTABLE VIAL IVPUSH SCH ×2 (05:49→14:24)
[2020-06-03] MEDS: CARVEDILOL 6.25 MG TABLET (FP) PO SCH ×2 (11:40→21:26)
[2020-06-03] MEDS: COLCHICINE 0.6 MG TAB PO SCH (11:40)
[2020-06-03] MEDS: DIVALPROEX SODIUM 250 MG TABLET E.C. PO SCH ×2 (11:40→21:26)
[2020-06-03] MEDS: APIXABAN 2.5 MG TABLET PO SCH ×2 (11:40→21:26)
[2020-06-03] MEDS: POLYETHYLENE GLYCOL 3350 255 GM BTL PO SCH (11:41)
[2020-06-03] MEDS: NYSTATIN POWDER 100,000 UNITS/GM - 15 GM TOPICAL POWDER TP SCH ×2 (11:41→21:27)
[2020-06-03] MEDS: ASCORBIC ACID 500 MG TABLET (FP) PO SCH (11:41)
[2020-06-03] MEDS: FERROUS SO4 325 MG TABLET (FP) PO SCH ×2 (11:41→16:50)
[2020-06-03] MEDS: SODIUM ZIRCONIUM CYCLOSILICATE (LOKELMA) 10 GM PACKET PO SCH ×2 (11:41→21:26)
[2020-06-03] MEDS: PANTOPRAZOLE 40 MG TABLET PO SCH (11:41)
[2020-06-03] MEDS: FOLIC ACID 1 MG TABLET (FP) PO SCH (11:41)
[2020-06-03] MEDS ORDERED: PT OWN MED DRAWER 7, Y5N ONE ×3 (17:38→21:35)
[2020-06-03] MEDS: DEXTROSE 5%-WATER - 1,000 ML IV SCH (21:04)
[2020-06-03] MEDS: SENNOSIDES 8.6MG TABLET (FP) PO SCH (21:27)
[2020-06-04] MEDS ORDERED: DEXTROSE 5%-WATER - 50 ML IVPB ONE ×3 (02:12→15:34)
[2020-06-04] MEDS ORDERED: PIPERACILLIN/TAZOBACTAM 2.25 GM VIAL IVPB ONE ×3 (02:12→15:34)
[2020-06-04] MEDS: PIPERACILLIN/TAZOB 2.25 GM 2.25 GM in DEXTROSE 5%-WATER - 50 ML IVPB SCH ×3 (02:58→15:36)
[2020-06-04] MEDS: FUROSEMIDE 40 MG/4 ML INJECTABLE VIAL IVPUSH SCH ×2 (06:41→13:48)
[2020-06-04] MEDS: FERROUS SO4 325 MG TABLET (FP) PO SCH (10:15)
[2020-06-04] MEDS ORDERED: PT OWN MED DRAWER 7, Y5N ONE (10:28)
[2020-06-04] MEDS: PANTOPRAZOLE 40 MG TABLET PO SCH (10:37)
[2020-06-04] MEDS: APIXABAN 2.5 MG TABLET PO SCH (10:37)
[2020-06-04] MEDS: SODIUM ZIRCONIUM CYCLOSILICATE (LOKELMA) 10 GM PACKET PO SCH (10:37)
[2020-06-04] MEDS: CARVEDILOL 6.25 MG TABLET (FP) PO SCH (10:37)
[2020-06-04] MEDS: ASCORBIC ACID 500 MG TABLET (FP) PO SCH (10:37)
[2020-06-04] MEDS: COLCHICINE 0.6 MG TAB PO SCH (10:37)
[2020-06-04] MEDS: FOLIC ACID 1 MG TABLET (FP) PO SCH (10:37)
[2020-06-04] MEDS: POLYETHYLENE GLYCOL 3350 255 GM BTL PO SCH (10:37)
[2020-06-04] MEDS: DIVALPROEX SODIUM 250 MG TABLET E.C. PO SCH (10:37)
[2020-06-04] MEDS: NYSTATIN POWDER 100,000 UNITS/GM - 15 GM TOPICAL POWDER TP SCH ×2 (10:49→23:15)
[2020-06-04] MEDS ORDERED: ENOXAPARIN NA (PORCINE) 100 MG/1 ML DISP.SYRIN SQ SCH (11:45)
[2020-06-04] MEDS ORDERED: ENOXAPARIN NA (PORCINE) 30 MG/0.3 ML DISP.SYRIN SQ SCH (11:45)
[2020-06-04] MEDS ORDERED: LORazepam 2 MG/ML SDV VIAL IVPUSH ONE ×2 (12:00→18:45)
[2020-06-04] MEDS ORDERED: ENOXAPARIN NA (PORCINE) 100 MG/1 ML DISP.SYRIN SQ ONE ×2 (12:39→21:59)
[2020-06-04] MEDS ORDERED: ENOXAPARIN NA (PORCINE) 30 MG/0.3 ML DISP.SYRIN SQ ONE ×2 (12:39→21:59)
[2020-06-04] MEDS: ENOXAPARIN 100 MG, ENOXAPARIN 30 MG SQ SCH ×2 (12:43→22:02)
[2020-06-04] MEDS: DEXTROSE 5%-WATER - 1,000 ML IV SCH (12:55)
[2020-06-04] MEDS ORDERED: FERRIC CARBOXYMALTOSE 750 MG in SODIUM CHLORIDE 250 ML IVPB ONE (13:00)
[2020-06-04] MEDS ORDERED: LORazepam 2 MG/ML SDV VIAL IM ONE (21:47)
[2020-06-05] MEDS: PIPERACILLIN/TAZOB 2.25 GM 2.25 GM in DEXTROSE 5%-WATER - 50 ML IVPB SCH ×5 (01:52→22:11)
[2020-06-05] MEDS: DEXTROSE 5%-WATER - 1,000 ML IV SCH ×2 (01:52→12:40)
[2020-06-05] MEDS: DIVALPROEX SODIUM 250 MG TABLET E.C. PO SCH ×3 (01:52→10:52)
[2020-06-05] MEDS: CARVEDILOL 6.25 MG TABLET (FP) PO SCH ×3 (01:52→22:12)
[2020-06-05] MEDS: SODIUM ZIRCONIUM CYCLOSILICATE (LOKELMA) 10 GM PACKET PO SCH ×3 (01:53→22:13)
[2020-06-05] MEDS: SENNOSIDES 8.6MG TABLET (FP) PO SCH ×2 (01:53→22:12)
[2020-06-05] MEDS: FERROUS SO4 300 MG/5 ML ORAL SOLN UNIT DOSE CUPS NGT SCH ×3 (01:53→22:12)
[2020-06-05] MEDS: FUROSEMIDE 40 MG/4 ML INJECTABLE VIAL IVPUSH SCH ×2 (07:53→14:44)
[2020-06-05] MEDS ORDERED: LORazepam 2 MG/ML SDV VIAL IM ONE (09:00)
[2020-06-05] MEDS ORDERED: ENOXAPARIN NA (PORCINE) 30 MG/0.3 ML DISP.SYRIN SQ ONE ×2 (10:35→21:35)
[2020-06-05] MEDS ORDERED: ENOXAPARIN NA (PORCINE) 100 MG/1 ML DISP.SYRIN SQ ONE ×2 (10:35→21:36)
[2020-06-05] MEDS ORDERED: PT OWN MED DRAWER 7, Y5N ONE ×3 (10:37→21:37)
[2020-06-05] MEDS: FOLIC ACID 1 MG TABLET (FP) PO SCH (10:45)
[2020-06-05] MEDS: PANTOPRAZOLE 40 MG TABLET PO SCH (10:45)
[2020-06-05] MEDS: ASCORBIC ACID 500 MG TABLET (FP) PO SCH (10:45)
[2020-06-05] MEDS: COLCHICINE 0.6 MG TAB PO SCH (10:46)
[2020-06-05] MEDS: ENOXAPARIN 100 MG, ENOXAPARIN 30 MG SQ SCH ×2 (10:47→22:13)
[2020-06-05] MEDS: POLYETHYLENE GLYCOL 3350 255 GM BTL PO SCH (10:48)
[2020-06-05] MEDS: NYSTATIN POWDER 100,000 UNITS/GM - 15 GM TOPICAL POWDER TP SCH ×2 (10:48→22:13)
[2020-06-05 13:27] LABS: BASO % 0.7 % (0-2.0); EOS % 1.5 % (0-4.5); HEMATOCRIT 29.4 % (35.4-49); HEMOGLOBIN 9.2 GM/dL (11.7-16.9); MCHC 31.3 g/dl (32.0-35.9); MEAN CELL VOLUME 92.7 fl (80-96); MEAN PLT VOLUME 9.5 fl (7.5-11.1); MONO % 11.3 % (3.8-10.2); NEUT % 73.5 % (42.8-82.8); PLATELET COUNT 217 K/MM3 (134-434); RBC 3.17 M/mm3 (4.00-5.60); RDW 20.7 % (11.9-15.9); WHITE BLOOD COUNT 6.5 K/mm3 (4.0-10.0)
[2020-06-05 13:48] LABS: POTASSIUM 5.9 mmol/L (3.5-5.1)
[2020-06-05 13:50] LABS: ALBUMIN 1.9 g/dl (3.4-5.0); BLOOD UREA NITROGEN 59.9 mg/dL (7-18); CALCIUM 7.8 mg/dL (8.5-10.1)
[2020-06-05 13:53] LABS: CREATININE 3.1 mg/dL (0.55-1.3)
[2020-06-05 13:55] LABS: BILIRUBIN,TOTAL 0.6 mg/dL (0.2-1); TOT PROT 6.5 g/dl (6.4-8.2)
[2020-06-05] MEDS ORDERED: PIPERACILLIN/TAZOBACTAM 2.25 GM VIAL IVPB ONE ×2 (14:39→21:38)
[2020-06-05] MEDS ORDERED: DEXTROSE 5%-WATER - 50 ML IVPB ONE ×2 (14:39→21:38)
[2020-06-05] MEDS: DIVALPROEX SODIUM 125 MG SPRINKLE CAPS PO SCH ×2 (14:45→23:26)
[2020-06-05 15:35] LABS: ANISOCYTOSIS 2+; MACROCYTOSIS 1+; PLATELET ESTIMATE NORMAL
[2020-06-05] MEDS: DEXTROSE 10%-WATER - 1,000 ML IV SCH (17:36)
[2020-06-06] MEDS ORDERED: PIPERACILLIN/TAZOBACTAM 2.25 GM VIAL IVPB ONE ×4 (02:28→21:42)
[2020-06-06] MEDS ORDERED: DEXTROSE 5%-WATER - 50 ML IVPB ONE ×4 (02:28→21:42)
[2020-06-06] MEDS: PIPERACILLIN/TAZOB 2.25 GM 2.25 GM in DEXTROSE 5%-WATER - 50 ML IVPB SCH ×4 (03:55→21:45)
[2020-06-06] MEDS: FUROSEMIDE 40 MG/4 ML INJECTABLE VIAL IVPUSH SCH ×2 (05:42→13:49)
[2020-06-06] MEDS ORDERED: ENOXAPARIN NA (PORCINE) 100 MG/1 ML DISP.SYRIN SQ ONE ×2 (08:59→21:40)
[2020-06-06] MEDS ORDERED: ENOXAPARIN NA (PORCINE) 30 MG/0.3 ML DISP.SYRIN SQ ONE ×2 (08:59→21:40)
[2020-06-06] MEDS: FERROUS SO4 300 MG/5 ML ORAL SOLN UNIT DOSE CUPS NGT SCH ×2 (09:55→21:45)
[2020-06-06] MEDS: CARVEDILOL 6.25 MG TABLET (FP) PO SCH ×2 (09:55→21:45)
[2020-06-06] MEDS: PANTOPRAZOLE 40 MG TABLET PO SCH (09:55)
[2020-06-06] MEDS: ASCORBIC ACID 500 MG TABLET (FP) PO SCH (09:55)
[2020-06-06] MEDS: ENOXAPARIN 100 MG, ENOXAPARIN 30 MG SQ SCH ×2 (09:55→21:45)
[2020-06-06] MEDS: COLCHICINE 0.6 MG TAB PO SCH (09:55)
[2020-06-06] MEDS: NYSTATIN POWDER 100,000 UNITS/GM - 15 GM TOPICAL POWDER TP SCH ×2 (09:56→22:36)
[2020-06-06] MEDS: POLYETHYLENE GLYCOL 3350 255 GM BTL PO SCH (09:56)
[2020-06-06] MEDS: SODIUM ZIRCONIUM CYCLOSILICATE (LOKELMA) 10 GM PACKET PO SCH ×2 (09:56→21:46)
[2020-06-06] MEDS: FOLIC ACID 1 MG TABLET (FP) PO SCH (09:56)
[2020-06-06] MEDS: DIVALPROEX SODIUM 125 MG SPRINKLE CAPS PO SCH ×2 (09:56→21:46)
[2020-06-06 13:05] LABS: EOS % 2.7 % (0-4.5); HEMATOCRIT 28.6 % (35.4-49); HEMOGLOBIN 9.1 GM/dL (11.7-16.9); LYMPH % 16.6 % (8-40); MCHC 31.9 g/dl (32.0-35.9); MEAN CELL VOLUME 90.9 fl (80-96); MEAN PLT VOLUME 9.2 fl (7.5-11.1); MONO % 12.4 % (3.8-10.2); NEUT % 67.3 % (42.8-82.8); PLATELET COUNT 190 K/MM3 (134-434); RBC 3.15 M/mm3 (4.00-5.60); RDW 20.2 % (11.9-15.9); WHITE BLOOD COUNT 6.3 K/mm3 (4.0-10.0)
[2020-06-06 13:29] LABS: POTASSIUM 5.7 mmol/L (3.5-5.1)
[2020-06-06 13:42] LABS: CALCIUM 7.8 mg/dL (8.5-10.1)
[2020-06-06 13:44] LABS: ALBUMIN 1.6 g/dl (3.4-5.0)
[2020-06-06 13:48] LABS: BILIRUBIN,TOTAL 0.8 mg/dL (0.2-1); CREATININE 3.1 mg/dL (0.55-1.3); TOT PROT 5.8 g/dl (6.4-8.2)
[2020-06-06] MEDS: ACETAMINOPHEN 325 MG TABLET (FP) PO PRN ×2 (13:49→21:45)
[2020-06-06] MEDS: DEXTROSE 10%-WATER - 1,000 ML IV SCH (16:52)
[2020-06-06] MEDS ORDERED: PT OWN MED DRAWER 7, Y5N ONE (21:41)
[2020-06-06] MEDS: SENNOSIDES 8.6MG TABLET (FP) PO SCH (21:45)
[2020-06-07] MEDS ORDERED: DEXTROSE 5%-WATER - 50 ML IVPB ONE ×4 (03:26→21:44)
[2020-06-07] MEDS ORDERED: PIPERACILLIN/TAZOBACTAM 2.25 GM VIAL IVPB ONE ×4 (03:26→21:43)
[2020-06-07] MEDS: PIPERACILLIN/TAZOB 2.25 GM 2.25 GM in DEXTROSE 5%-WATER - 50 ML IVPB SCH ×4 (03:29→21:48)
[2020-06-07] MEDS: FUROSEMIDE 40 MG/4 ML INJECTABLE VIAL IVPUSH SCH ×2 (05:22→13:54)
[2020-06-07] MEDS ORDERED: ENOXAPARIN NA (PORCINE) 30 MG/0.3 ML DISP.SYRIN SQ ONE ×2 (10:29→21:42)
[2020-06-07] MEDS ORDERED: ENOXAPARIN NA (PORCINE) 100 MG/1 ML DISP.SYRIN SQ ONE ×2 (10:29→21:42)
[2020-06-07] MEDS: DIVALPROEX SODIUM 125 MG SPRINKLE CAPS PO SCH ×2 (10:38→21:49)
[2020-06-07] MEDS: FERROUS SO4 300 MG/5 ML ORAL SOLN UNIT DOSE CUPS NGT SCH ×2 (10:38→21:49)
[2020-06-07] MEDS: FOLIC ACID 1 MG TABLET (FP) PO SCH (10:39)
[2020-06-07] MEDS: CARVEDILOL 6.25 MG TABLET (FP) PO SCH ×2 (10:39→21:48)
[2020-06-07] MEDS: ENOXAPARIN 100 MG, ENOXAPARIN 30 MG SQ SCH ×2 (10:39→21:49)
[2020-06-07] MEDS: PANTOPRAZOLE 40 MG TABLET PO SCH (10:39)
[2020-06-07] MEDS: POLYETHYLENE GLYCOL 3350 255 GM BTL PO SCH (10:39)
[2020-06-07] MEDS: SODIUM ZIRCONIUM CYCLOSILICATE (LOKELMA) 10 GM PACKET PO SCH ×2 (10:39→21:49)
[2020-06-07] MEDS: COLCHICINE 0.6 MG TAB PO SCH (10:39)
[2020-06-07] MEDS: ASCORBIC ACID 500 MG TABLET (FP) PO SCH (10:39)
[2020-06-07] MEDS: NYSTATIN POWDER 100,000 UNITS/GM - 15 GM TOPICAL POWDER TP SCH ×2 (10:40→21:53)
[2020-06-07 11:30] LABS: HEMATOCRIT 27.5 % (35.4-49); HEMOGLOBIN 8.9 GM/dL (11.7-16.9); MCHC 32.2 g/dl (32.0-35.9); MEAN PLT VOLUME 9.1 fl (7.5-11.1); PLATELET COUNT 195 K/MM3 (134-434); RBC 3.06 M/mm3 (4.00-5.60); RDW 20.7 % (11.9-15.9); WHITE BLOOD COUNT 6.6 K/mm3 (4.0-10.0)
[2020-06-07 11:52] LABS: POTASSIUM 4.9 mmol/L (3.5-5.1)
[2020-06-07 11:55] LABS: BLOOD UREA NITROGEN 58.8 mg/dL (7-18); CALCIUM 7.4 mg/dL (8.5-10.1); MAGNESIUM 1.8 mg/dL (1.8-2.4)
[2020-06-07 11:58] LABS: PHOSPHOROUS 4.4 mg/dL (2.5-4.9)
[2020-06-07] MEDS: AMINO ACIDS 4.25%/D5W 1,000 ML IV SCH (12:05)
[2020-06-07] MEDS: DEXTROSE 10%-WATER - 1,000 ML IV SCH (18:38)
[2020-06-07] MEDS ORDERED: PT OWN MED DRAWER 7, Y5N ONE (21:43)
[2020-06-07] MEDS: SENNOSIDES 8.6MG TABLET (FP) PO SCH (21:48)
[2020-06-08] MEDS ORDERED: DEXTROSE 5%-WATER - 50 ML IVPB ONE ×2 (02:33→09:26)
[2020-06-08] MEDS ORDERED: PIPERACILLIN/TAZOBACTAM 2.25 GM VIAL IVPB ONE ×2 (02:33→09:26)
[2020-06-08] MEDS: PIPERACILLIN/TAZOB 2.25 GM 2.25 GM in DEXTROSE 5%-WATER - 50 ML IVPB SCH ×2 (02:46→09:55)
[2020-06-08] MEDS: FUROSEMIDE 40 MG/4 ML INJECTABLE VIAL IVPUSH SCH ×2 (06:44→13:35)
[2020-06-08 08:27] LABS: BASO % 1.1 % (0-2.0); EOS % 2.6 % (0-4.5); HEMATOCRIT 26.5 % (35.4-49); HEMOGLOBIN 8.4 GM/dL (11.7-16.9); LYMPH % 13.7 % (8-40); MCH 28.9 pg (25.7-33.7); MCHC 31.6 g/dl (32.0-35.9); MEAN CELL VOLUME 91.6 fl (80-96); MEAN PLT VOLUME 10.1 fl (7.5-11.1); NEUT % 74.6 % (42.8-82.8); PLATELET COUNT 193 K/MM3 (134-434); RDW 20.8 % (11.9-15.9); WHITE BLOOD COUNT 6.5 K/mm3 (4.0-10.0)
[2020-06-08 08:48] LABS: POTASSIUM 4.5 mmol/L (3.5-5.1)
[2020-06-08 08:55] LABS: BLOOD UREA NITROGEN 56.5 mg/dL (7-18)
[2020-06-08 08:56] LABS: ALBUMIN 1.6 g/dl (3.4-5.0)
[2020-06-08 09:01] LABS: CALCIUM 7.1 mg/dL (8.5-10.1)
[2020-06-08 09:04] LABS: CREATININE 2.9 mg/dL (0.55-1.3)
[2020-06-08 09:05] LABS: BILIRUBIN,TOTAL 0.6 mg/dL (0.2-1); TOT PROT 5.6 g/dl (6.4-8.2)
[2020-06-08] MEDS ORDERED: ENOXAPARIN NA (PORCINE) 30 MG/0.3 ML DISP.SYRIN SQ ONE ×2 (09:25→21:08)
[2020-06-08] MEDS ORDERED: ENOXAPARIN NA (PORCINE) 100 MG/1 ML DISP.SYRIN SQ ONE ×2 (09:25→21:09)
[2020-06-08] MEDS ORDERED: PT OWN MED DRAWER 7, Y5N ONE ×2 (09:29→21:10)
[2020-06-08] MEDS: PANTOPRAZOLE 40 MG TABLET PO SCH (10:44)
[2020-06-08] MEDS: FERROUS SO4 300 MG/5 ML ORAL SOLN UNIT DOSE CUPS NGT SCH ×2 (10:44→21:24)
[2020-06-08] MEDS: FOLIC ACID 1 MG TABLET (FP) PO SCH (10:44)
[2020-06-08] MEDS: ASCORBIC ACID 500 MG TABLET (FP) PO SCH (10:44)
[2020-06-08] MEDS: POLYETHYLENE GLYCOL 3350 255 GM BTL PO SCH (10:45)
[2020-06-08] MEDS: NYSTATIN POWDER 100,000 UNITS/GM - 15 GM TOPICAL POWDER TP SCH ×2 (10:45→21:24)
[2020-06-08] MEDS: ENOXAPARIN 100 MG, ENOXAPARIN 30 MG SQ SCH ×2 (10:46→21:24)
[2020-06-08] MEDS: SODIUM ZIRCONIUM CYCLOSILICATE (LOKELMA) 10 GM PACKET PO SCH (10:46)
[2020-06-08] MEDS: DIVALPROEX SODIUM 125 MG SPRINKLE CAPS PO SCH ×2 (10:47→21:24)
[2020-06-08] MEDS: COLCHICINE 0.6 MG TAB PO SCH (10:47)
[2020-06-08] MEDS: CARVEDILOL 6.25 MG TABLET (FP) PO SCH ×2 (10:47→21:24)
[2020-06-08] MEDS: AMINO ACIDS 4.25%/D5W 1,000 ML IV SCH (10:49)
[2020-06-08] MEDS: SENNOSIDES 8.6MG TABLET (FP) PO SCH (21:24)
[2020-06-09] MEDS: ALBUMIN HUMAN 25% 12.5 GM/50 ML VIAL IVPB SCH ×2 (00:02→04:14)
[2020-06-09] MEDS: DEXTROSE 10%-WATER - 1,000 ML IV SCH (04:15)
[2020-06-09] MEDS: FUROSEMIDE 40 MG/4 ML INJECTABLE VIAL IVPUSH SCH ×2 (06:45→14:48)
[2020-06-09 07:50] LABS: BASO % 0.9 % (0-2.0); HEMATOCRIT 24.5 % (35.4-49); HEMOGLOBIN 8.1 GM/dL (11.7-16.9); LYMPH % 15.5 % (8-40); MCH 29.6 pg (25.7-33.7); MCHC 32.9 g/dl (32.0-35.9); MEAN CELL VOLUME 89.9 fl (80-96); MEAN PLT VOLUME 9.9 fl (7.5-11.1); NEUT % 72.6 % (42.8-82.8); PLATELET COUNT 182 K/MM3 (134-434); RBC 2.73 M/mm3 (4.00-5.60); RDW 20.3 % (11.9-15.9); WHITE BLOOD COUNT 5.7 K/mm3 (4.0-10.0)
[2020-06-09 07:57] LABS: POTASSIUM 4.2 mmol/L (3.5-5.1)
[2020-06-09 08:08] LABS: BLOOD UREA NITROGEN 55.2 mg/dL (7-18); CALCIUM 7.2 mg/dL (8.5-10.1)
[2020-06-09 08:10] LABS: CREATININE 2.8 mg/dL (0.55-1.3)
[2020-06-09 08:13] LABS: BILIRUBIN,TOTAL 0.8 mg/dL (0.2-1); TOT PROT 5.7 g/dl (6.4-8.2)
[2020-06-09] MEDS ORDERED: ENOXAPARIN NA (PORCINE) 30 MG/0.3 ML DISP.SYRIN SQ ONE (09:55)
[2020-06-09] MEDS ORDERED: ENOXAPARIN NA (PORCINE) 100 MG/1 ML DISP.SYRIN SQ ONE (09:55)
[2020-06-09] MEDS ORDERED: PT OWN MED DRAWER 7, Y5N ONE ×2 (09:57→21:02)
[2020-06-09] MEDS: CARVEDILOL 6.25 MG TABLET (FP) PO SCH ×2 (10:04→22:46)
[2020-06-09] MEDS: COLCHICINE 0.6 MG TAB PO SCH (10:04)
[2020-06-09] MEDS: DIVALPROEX SODIUM 125 MG SPRINKLE CAPS PO SCH ×2 (10:04→22:46)
[2020-06-09] MEDS: FOLIC ACID 1 MG TABLET (FP) PO SCH (10:05)
[2020-06-09] MEDS: SODIUM ZIRCONIUM CYCLOSILICATE (LOKELMA) 10 GM PACKET PO SCH (10:05)
[2020-06-09] MEDS: ASCORBIC ACID 500 MG TABLET (FP) PO SCH (10:05)
[2020-06-09] MEDS: PANTOPRAZOLE 40 MG TABLET PO SCH (10:05)
[2020-06-09] MEDS: ENOXAPARIN 100 MG, ENOXAPARIN 30 MG SQ SCH (10:05)
[2020-06-09] MEDS: FERROUS SO4 300 MG/5 ML ORAL SOLN UNIT DOSE CUPS NGT SCH ×2 (10:05→22:46)
[2020-06-09] MEDS: POLYETHYLENE GLYCOL 3350 255 GM BTL PO SCH (10:06)
[2020-06-09] MEDS: NYSTATIN POWDER 100,000 UNITS/GM - 15 GM TOPICAL POWDER TP SCH ×2 (10:06→22:46)
[2020-06-09] MEDS: AMINO ACIDS 4.25%/D5W 1,000 ML IV SCH (11:15)
[2020-06-09] MEDS: CALCIUM ACETATE/AL SULFATE TOP 1.9 GM/PACKET PACKET TP SCH (18:00)
[2020-06-09] MEDS: AMMONIUM LACTATE 12% LOTION 225 GM BOTTLE TP SCH (18:00)
[2020-06-09 20:02] LABS: HEMATOCRIT 24.3 % (35.4-49); HEMOGLOBIN 7.8 GM/dL (11.7-16.9); MCH 28.8 pg (25.7-33.7); MEAN CELL VOLUME 89.9 fl (80-96); MEAN PLT VOLUME 9.5 fl (7.5-11.1); PLATELET COUNT 178 K/MM3 (134-434); RDW 20.7 % (11.9-15.9); WHITE BLOOD COUNT 6.4 K/mm3 (4.0-10.0)
[2020-06-09 20:36] LABS: INR 1.51 (0.83-1.09); PROTHROMBIN TIME (PATIENT) 18.1 SEC (9.7-13.0)
[2020-06-09] MEDS: APIXABAN 2.5 MG TABLET PO SCH (22:46)
[2020-06-09] MEDS: SENNOSIDES 8.6MG TABLET (FP) PO SCH (22:46)
[2020-06-10 01:16] LABS: HEMATOCRIT 24.7 % (35.4-49); HEMOGLOBIN 7.8 GM/dL (11.7-16.9); MCH 28.6 pg (25.7-33.7); MCHC 31.6 g/dl (32.0-35.9); MEAN CELL VOLUME 90.6 fl (80-96); MEAN PLT VOLUME 9.5 fl (7.5-11.1); PLATELET COUNT 187 K/MM3 (134-434); RBC 2.72 M/mm3 (4.00-5.60); RDW 20.5 % (11.9-15.9); WHITE BLOOD COUNT 7.3 K/mm3 (4.0-10.0)
[2020-06-10] MEDS: FUROSEMIDE 40 MG/4 ML INJECTABLE VIAL IVPUSH SCH ×2 (06:57→15:09)
[2020-06-10 07:26] LABS: BASO % 0.7 % (0-2.0); EOS % 1.6 % (0-4.5); HEMATOCRIT 24.8 % (35.4-49); LYMPH % 13.6 % (8-40); MCHC 32.1 g/dl (32.0-35.9); MEAN CELL VOLUME 90.4 fl (80-96); MEAN PLT VOLUME 9.7 fl (7.5-11.1); MONO % 9.4 % (3.8-10.2); NEUT % 74.7 % (42.8-82.8); PLATELET COUNT 192 K/MM3 (134-434); RBC 2.74 M/mm3 (4.00-5.60); RDW 20.5 % (11.9-15.9); WHITE BLOOD COUNT 7.2 K/mm3 (4.0-10.0)
[2020-06-10 07:42] LABS: POTASSIUM 3.9 mmol/L (3.5-5.1)
[2020-06-10 07:48] LABS: CALCIUM 7.2 mg/dL (8.5-10.1)
[2020-06-10 07:49] LABS: ALBUMIN 1.9 g/dl (3.4-5.0); BLOOD UREA NITROGEN 57.9 mg/dL (7-18)
[2020-06-10 07:52] LABS: BILIRUBIN,TOTAL 0.6 mg/dL (0.2-1); CREATININE 2.7 mg/dL (0.55-1.3)
[2020-06-10] MEDS ORDERED: PT OWN MED DRAWER 7, Y5N ONE ×2 (10:30→21:34)
[2020-06-10] MEDS: APIXABAN 2.5 MG TABLET PO SCH ×2 (10:45→21:37)
[2020-06-10] MEDS: AMMONIUM LACTATE 12% LOTION 225 GM BOTTLE TP SCH (10:45)
[2020-06-10] MEDS: CALCIUM ACETATE/AL SULFATE TOP 1.9 GM/PACKET PACKET TP SCH (10:45)
[2020-06-10] MEDS: CARVEDILOL 6.25 MG TABLET (FP) PO SCH ×2 (10:46→21:37)
[2020-06-10] MEDS: FERROUS SO4 300 MG/5 ML ORAL SOLN UNIT DOSE CUPS NGT SCH ×2 (10:46→21:37)
[2020-06-10] MEDS: PANTOPRAZOLE 40 MG TABLET PO SCH (10:46)
[2020-06-10] MEDS: ASCORBIC ACID 500 MG TABLET (FP) PO SCH (10:46)
[2020-06-10] MEDS: FOLIC ACID 1 MG TABLET (FP) PO SCH (10:46)
[2020-06-10] MEDS: AMINO ACIDS 4.25%/D5W 1,000 ML IV SCH (10:46)
[2020-06-10] MEDS: DIVALPROEX SODIUM 125 MG SPRINKLE CAPS PO SCH ×2 (10:47→21:37)
[2020-06-10] MEDS: POLYETHYLENE GLYCOL 3350 255 GM BTL PO SCH (10:48)
[2020-06-10] MEDS: SODIUM ZIRCONIUM CYCLOSILICATE (LOKELMA) 10 GM PACKET PO SCH (10:48)
[2020-06-10] MEDS: COLCHICINE 0.6 MG TAB PO SCH (10:48)
[2020-06-10 10:49] LABS: ANISOCYTOSIS 1+; MACROCYTOSIS 1+; PLATELET ESTIMATE NORMAL
[2020-06-10] MEDS: NYSTATIN POWDER 100,000 UNITS/GM - 15 GM TOPICAL POWDER TP SCH ×2 (10:49→21:38)
[2020-06-10 12:37] VITALS: BMI 36.8
[2020-06-10 15:09] LABS: MAGNESIUM 1.7 mg/dL (1.8-2.4)
[2020-06-10] MEDS ORDERED: MAGNESIUM SULF 50% (8.12 MEQ/2 ML-1 GM VIAL) IVPB ONE (15:37)
[2020-06-10] MEDS: AMINO ACIDS/PROTEIN HYDROLYS 30 ML LIQUID.PKT PO SCH (18:13)
[2020-06-10] MEDS: MAGNESIUM OXIDE 400 MG TABLET (FP) NGT SCH (21:37)
[2020-06-10] MEDS: SENNOSIDES 8.6MG TABLET (FP) PO SCH (21:38)
[2020-06-11] MEDS: FUROSEMIDE 40 MG/4 ML INJECTABLE VIAL IVPUSH SCH ×2 (05:24→13:53)
[2020-06-11 07:09] LABS: BASO % 0.7 % (0-2.0); EOS % 2.2 % (0-4.5); HEMATOCRIT 22.7 % (35.4-49); HEMOGLOBIN 7.4 GM/dL (11.7-16.9); LYMPH % 16.9 % (8-40); MCH 29.1 pg (25.7-33.7); MCHC 32.5 g/dl (32.0-35.9); MEAN CELL VOLUME 89.3 fl (80-96); MEAN PLT VOLUME 9.4 fl (7.5-11.1); NEUT % 69.2 % (42.8-82.8); PLATELET COUNT 175 K/MM3 (134-434); RBC 2.54 M/mm3 (4.00-5.60); RDW 20.6 % (11.9-15.9); WHITE BLOOD COUNT 7.1 K/mm3 (4.0-10.0)
[2020-06-11 07:38] LABS: POTASSIUM 3.7 mmol/L (3.5-5.1)
[2020-06-11 07:42] LABS: ALBUMIN 1.7 g/dl (3.4-5.0); CALCIUM 7.3 mg/dL (8.5-10.1)
[2020-06-11 07:43] LABS: BLOOD UREA NITROGEN 57.4 mg/dL (7-18); MAGNESIUM 1.9 mg/dL (1.8-2.4)
[2020-06-11 07:46] LABS: CREATININE 2.5 mg/dL (0.55-1.3)
[2020-06-11 07:47] LABS: BILIRUBIN,TOTAL 0.4 mg/dL (0.2-1); TOT PROT 5.5 g/dl (6.4-8.2)
[2020-06-11] MEDS: AMINO ACIDS/PROTEIN HYDROLYS 30 ML LIQUID.PKT PO SCH ×2 (09:50→18:04)
[2020-06-11] MEDS ORDERED: SODIUM ZIRCONIUM CYCLOSILICATE (LOKELMA) 5 GM PACKET PO SCH (10:00)
[2020-06-11] MEDS: FERROUS SO4 300 MG/5 ML ORAL SOLN UNIT DOSE CUPS NGT SCH ×2 (11:11→21:35)
[2020-06-11] MEDS: PANTOPRAZOLE 40 MG TABLET PO SCH (11:12)
[2020-06-11] MEDS: NYSTATIN POWDER 100,000 UNITS/GM - 15 GM TOPICAL POWDER TP SCH ×2 (11:12→21:36)
[2020-06-11] MEDS: FOLIC ACID 1 MG TABLET (FP) PO SCH (11:12)
[2020-06-11] MEDS: MAGNESIUM OXIDE 400 MG TABLET (FP) NGT SCH ×2 (11:12→21:35)
[2020-06-11] MEDS: POLYETHYLENE GLYCOL 3350 255 GM BTL PO SCH (11:12)
[2020-06-11] MEDS: DIVALPROEX SODIUM 125 MG SPRINKLE CAPS PO SCH ×2 (11:12→21:35)
[2020-06-11] MEDS: ASCORBIC ACID 500 MG TABLET (FP) PO SCH (11:12)
[2020-06-11] MEDS: COLCHICINE 0.6 MG TAB PO SCH (11:12)
[2020-06-11] MEDS: CARVEDILOL 6.25 MG TABLET (FP) PO SCH ×2 (11:12→21:35)
[2020-06-11] MEDS ORDERED: PT OWN MED DRAWER 7, Y5N ONE ×2 (11:19→21:33)
[2020-06-11] MEDS: AMINO ACIDS 4.25%/D5W 1,000 ML IV SCH (11:36)
[2020-06-11] MEDS: CALCIUM ACETATE/AL SULFATE TOP 1.9 GM/PACKET PACKET TP SCH (12:50)
[2020-06-11] MEDS: AMMONIUM LACTATE 12% LOTION 225 GM BOTTLE TP SCH (12:50)
[2020-06-11] MEDS: APIXABAN 2.5 MG TABLET PO SCH ×2 (12:50→21:36)
[2020-06-12] MEDS: FUROSEMIDE 40 MG TABLET (FP) PO SCH ×2 (06:01→14:03)
[2020-06-12 07:32] LABS: BASO % 0.6 % (0-2.0); EOS % 1.9 % (0-4.5); HEMATOCRIT 22.4 % (35.4-49); HEMOGLOBIN 7.2 GM/dL (11.7-16.9); LYMPH % 13.9 % (8-40); MCH 28.8 pg (25.7-33.7); MCHC 32.1 g/dl (32.0-35.9); MEAN CELL VOLUME 89.7 fl (80-96); MEAN PLT VOLUME 9.7 fl (7.5-11.1); MONO % 12.2 % (3.8-10.2); NEUT % 71.4 % (42.8-82.8); PLATELET COUNT 171 K/MM3 (134-434); RDW 20.7 % (11.9-15.9); WHITE BLOOD COUNT 7.7 K/mm3 (4.0-10.0)
[2020-06-12 08:03] LABS: POTASSIUM 3.6 mmol/L (3.5-5.1)
[2020-06-12 08:19] LABS: ALBUMIN 1.7 g/dl (3.4-5.0); BILIRUBIN,TOTAL 0.4 mg/dL (0.2-1); BLOOD UREA NITROGEN 57.5 mg/dL (7-18); CALCIUM 7.3 mg/dL (8.5-10.1); CREATININE 2.3 mg/dL (0.55-1.3); TOT PROT 5.8 g/dl (6.4-8.2)
[2020-06-12] MEDS ORDERED: PT OWN MED DRAWER 7, Y5N ONE ×2 (08:45→11:07)
[2020-06-12] MEDS: APIXABAN 2.5 MG TABLET PO SCH (09:12)
[2020-06-12] MEDS: AMINO ACIDS/PROTEIN HYDROLYS 30 ML LIQUID.PKT PO SCH ×2 (11:09→19:34)
[2020-06-12] MEDS: FERROUS SO4 300 MG/5 ML ORAL SOLN UNIT DOSE CUPS NGT SCH (11:09)
[2020-06-12] MEDS: MAGNESIUM OXIDE 400 MG TABLET (FP) NGT SCH (11:09)
[2020-06-12] MEDS: CARVEDILOL 6.25 MG TABLET (FP) PO SCH (11:09)
[2020-06-12] MEDS: PANTOPRAZOLE 40 MG TABLET PO SCH (11:10)
[2020-06-12] MEDS: COLCHICINE 0.6 MG TAB PO SCH (11:10)
[2020-06-12] MEDS: DIVALPROEX SODIUM 125 MG SPRINKLE CAPS PO SCH (11:10)
[2020-06-12] MEDS: FOLIC ACID 1 MG TABLET (FP) PO SCH (11:10)
[2020-06-12] MEDS: CALCIUM ACETATE/AL SULFATE TOP 1.9 GM/PACKET PACKET TP SCH (11:11)
[2020-06-12] MEDS: AMINO ACIDS 4.25%/D5W 1,000 ML IV SCH (11:15)
[2020-06-12] MEDS: POLYETHYLENE GLYCOL 3350 255 GM BTL PO SCH (14:02)
[2020-06-12] MEDS: ASCORBIC ACID 500 MG TABLET (FP) PO SCH (14:03)
[2020-06-12] MEDS: AMMONIUM LACTATE 12% LOTION 225 GM BOTTLE TP SCH (14:04)
[2020-06-12] MEDS: NYSTATIN POWDER 100,000 UNITS/GM - 15 GM TOPICAL POWDER TP SCH (14:06)
[2020-06-12 16:29] VITALS: PULSE 98
[2020-06-12 16:30] VITALS: BP 120/64; TEMP 97.8
== END 2020-06-12 21:36 | DRG 193 ==
LOC: JER 16:19 → JERBED 20:41 → J4S 06-01 17:35
PROVIDERS: ADMIT Internal Medicine; ATTEND Family Medicine
PROC: 0DH67UZ Insertion of Feeding Device into Stomach, Via Natural or Artificial Opening (ICD-10-PCS; 2020-05-31)
PROC: 05HF33Z Insertion of Infusion Device into Left Cephalic Vein, Percutaneous Approach (ICD-10-PCS; principal; 2020-06-05)
PROC: B54NZZA Ultrasonography of Left Upper Extremity Veins, Guidance (ICD-10-PCS; 2020-06-05)
DX: J18.9 Pneumonia, unspecified organism (principal); J96.21 Acute and chronic respiratory failure with hypoxia; J96.22 Acute and chronic respiratory failure with hypercapnia; I50.23 Acute on chronic systolic (congestive) heart failure; G93.41 Metabolic encephalopathy; I13.0 Hypertensive heart and chronic kidney disease with heart failure and stage 1 through stage 4 chronic kidney disease, or unspecified chronic kidney disease; N39.0 Urinary tract infection, site not specified; N17.9 Acute kidney failure, unspecified; I47.2 Ventricular tachycardia; L97.919 Non-pressure chronic ulcer of unspecified part of right lower leg with unspecified severity; E87.5 Hyperkalemia; I89.0 Lymphedema, not elsewhere classified; I87.2 Venous insufficiency (chronic) (peripheral); D50.9 Iron deficiency anemia, unspecified; F32.9 Major depressive disorder, single episode, unspecified; E66.01 Morbid (severe) obesity due to excess calories; Z68.33 Body mass index [BMI] 33.0-33.9, adult; N18.9 Chronic kidney disease, unspecified; D64.9 Anemia, unspecified; M10.9 Gout, unspecified; Z90.89 Acquired absence of other organs; I48.91 Unspecified atrial fibrillation; Z79.01 Long term (current) use of anticoagulants; E83.42 Hypomagnesemia; I95.9 Hypotension, unspecified; E78.5 Hyperlipidemia, unspecified; Z68.36 Body mass index [BMI] 36.0-36.9, adult; I83.019 Varicose veins of right lower extremity with ulcer of unspecified site
CPT/HCPCS: 36415; 36600; 71045-TC-FY; 80048; 80053; 81003; 82248; 82550; 82553; 82565; 82607; 82728; 82803; 82962; 83540; 83550; 83605; 83615; 83735; 83880; 84100; 84300; 84443; 84484; 85025; 85027; 85610; 85730; 86140; 86850; 86900; 86901; 87040; 87086; 87186; 93005; 93010; 93971; 99285-25; C9803; J1439; P9047; U0003

== ENCOUNTER 2020-06-24 17:59 | Inpatient (IN) | payer OTHER, BC ==
[2020-06-24 19:53] LABS: BASO % 0.4 % (0-2.0); EOS % 0.1 % (0-4.5); HEMATOCRIT 20.5 % (35.4-49); LYMPH % 9.2 % (8-40); MCH 30.4 pg (25.7-33.7); MCHC 32.1 g/dl (32.0-35.9); MEAN CELL VOLUME 94.8 fl (80-96); MEAN PLT VOLUME 9.8 fl (7.5-11.1); MONO % 4.2 % (3.8-10.2); NEUT % 86.1 % (42.8-82.8); PLATELET COUNT 193 K/MM3 (134-434); RBC 2.16 M/mm3 (4.00-5.60); RDW 20.8 % (11.9-15.9); RETICULOCYTES 6.52 % (0.5-1.5)
[2020-06-24 20:00] LABS: HEMOGLOBIN 6.6 GM/dL (11.7-16.9); INR 1.22 (0.83-1.09); PROTHROMBIN TIME (PATIENT) 14.7 SEC (9.7-13.0)
[2020-06-24 20:02] LABS: ACTIVATED PTT 27.9 SECONDS (25.2-36.5)
[2020-06-24] MEDS ORDERED: cefTAZidime PENTAHYDRATE 1 GM/10 ML SYRINGE (RESTRICTED TO ID) IVPUSH ONE (20:10)
[2020-06-24] MEDS ORDERED: VANCOMYCIN 1 GM in D5W (PRE-DOCKED) 1,000 MG/250 ML IVPB ONE (20:10)
[2020-06-24 20:18] LABS: CALCIUM 8.1 mg/dL (8.5-10.1)
[2020-06-24] MEDS ORDERED: SODIUM ZIRCONIUM CYCLOSILICATE (LOKELMA) 5 GM PACKET PO ONE (20:18)
[2020-06-24 20:19] LABS: BLOOD UREA NITROGEN 56.9 mg/dL (7-18)
[2020-06-24 20:22] LABS: BILIRUBIN,DIRECT 0.2 mg/dL (0.0-0.2)
[2020-06-24 20:24] LABS: BILIRUBIN,TOTAL 0.4 mg/dL (0.2-1); CREATININE 2.3 mg/dL (0.55-1.3)
[2020-06-24] MEDS ORDERED: VANCOMYCIN 1 GRAM (PRE-DOCKED) 1,000 MG/250 ML BAG IVPB ONE (20:25)
[2020-06-24] MEDS ORDERED: SODIUM ZIRCONIUM CYCLOSILICATE (LOKELMA) 5 GM PACKET ONE (20:25)
[2020-06-24 20:26] LABS: TOT PROT 7.3 g/dl (6.4-8.2)
[2020-06-24 20:59] LABS: ANISOCYTOSIS 2+; MACROCYTOSIS 0; OVALOCYTE 1+; PLATELET ESTIMATE NORMAL; TARGET CELLS 1+
[2020-06-24] MEDS ORDERED: cefTAZidime PENTAHYDRATE 1 GM/50ML PRE-DOCKED (RESTRICTED TO ID) IVPB ONE (20:59)
[2020-06-24] MEDS ORDERED: MORPHINE SULFATE 2 MG/ML VIAL IVPUSH ONE (21:30)
[2020-06-24 22:00] LABS: ALBUMIN 2.4 g/dl (3.4-5.0)
[2020-06-24] MEDS ORDERED: HEPARIN NA (PORCINE) 5,000 UNITS/ML 1ML VIAL SQ SCH (22:00)
[2020-06-24] MEDS ORDERED: MORPHINE SULFATE 2 MG/ML VIAL ONE (22:09)
[2020-06-24] MEDS ORDERED: METOPROLOL TARTRATE 25 MG TABLET (FP) PO ONE (22:25)
[2020-06-24] MEDS ORDERED: metoPROLOL SUCCINATE 25 MG TAB.SR.24H (FP) PO ONE (22:36)
[2020-06-24] MEDS ORDERED: METOPROLOL TARTRATE 25 MG TABLET (FP) ONE (22:37)
[2020-06-25] MEDS: CEFTAZIDIME PENTAHYDRATE 1 GM in DEXTROSE 5%-WATER - 50 ML IVPB SCH ×2 (06:02→16:19)
[2020-06-25 07:18] LABS: BLOOD UREA NITROGEN 56.4 mg/dL (7-18); CALCIUM 8.3 mg/dL (8.5-10.1)
[2020-06-25 07:21] LABS: CREATININE 2.2 mg/dL (0.55-1.3); PHOSPHOROUS 4.2 mg/dL (2.5-4.9)
[2020-06-25 09:08] LABS: BASO % 0.5 % (0-2.0); EOS % 0.4 % (0-4.5); HEMATOCRIT 23.5 % (35.4-49); HEMOGLOBIN 7.7 GM/dL (11.7-16.9); LYMPH % 17.1 % (8-40); MCH 29.7 pg (25.7-33.7); MCHC 32.9 g/dl (32.0-35.9); MEAN CELL VOLUME 90.2 fl (80-96); MEAN PLT VOLUME 9.8 fl (7.5-11.1); PLATELET COUNT 201 K/MM3 (134-434); RDW 22.6 % (11.9-15.9); WHITE BLOOD COUNT 9.4 K/mm3 (4.0-10.0)
[2020-06-25 09:12] LABS: POTASSIUM 5.7 mmol/L (3.5-5.1)
[2020-06-25 09:19] LABS: CALCIUM 8.2 mg/dL (8.5-10.1)
[2020-06-25 09:20] LABS: ALBUMIN 2.2 g/dl (3.4-5.0); BLOOD UREA NITROGEN 57.7 mg/dL (7-18)
[2020-06-25 09:23] LABS: BILIRUBIN,TOTAL 0.7 mg/dL (0.2-1); CREATININE 2.2 mg/dL (0.55-1.3)
[2020-06-25 09:25] LABS: TOT PROT 6.6 g/dl (6.4-8.2)
[2020-06-25] MEDS ORDERED: METOPROLOL TARTRATE 25 MG TABLET (FP) PO SCH (10:00)
[2020-06-25] MEDS ORDERED: CARVEDILOL 3.125 MG TABLET (FP) PO SCH (10:00)
[2020-06-25] MEDS ORDERED: VANCOMYCIN 1 GM in D5W (PRE-DOCKED) 1,000 MG/250 ML IVPB SCH (10:00)
[2020-06-25] MEDS ORDERED: VANCOMYCIN 1 GM in D5W (PRE-DOCKED) 1,000 MG/250 ML IVPB ONE (10:00)
[2020-06-25] MEDS ORDERED: SODIUM ZIRCONIUM CYCLOSILICATE (LOKELMA) 5 GM PACKET PO SCH (10:00)
[2020-06-25] MEDS ORDERED: predniSONE 20 MG TABLET (UD) ONE (10:13)
[2020-06-25] MEDS ORDERED: PANTOPRAZOLE 40 MG TABLET ONE (10:14)
[2020-06-25] MEDS ORDERED: SODIUM ZIRCONIUM CYCLOSILICATE (LOKELMA) 5 GM PACKET ONE (10:14)
[2020-06-25] MEDS ORDERED: ASCORBIC ACID 500 MG TABLET (FP) ONE (10:14)
[2020-06-25] MEDS ORDERED: metoPROLOL SUCCINATE 25 MG TAB.SR.24H (FP) ONE (10:14)
[2020-06-25] MEDS ORDERED: FOLIC ACID 1 MG TABLET (FP) ONE (10:14)
[2020-06-25] MEDS ORDERED: MAG HYDROX/AL HYDROX/SIMETH 30 ML UNIT-DOSE CUP ONE (10:15)
[2020-06-25] MEDS ORDERED: FUROSEMIDE 40 MG/4 ML INJECTABLE VIAL IVPUSH ONE ×2 (10:20→17:00)
[2020-06-25] MEDS: POLYETHYLENE GLYCOL 3350 255 GM BTL PO SCH (11:03)
[2020-06-25] MEDS: metoPROLOL SUCCINATE 25 MG TAB.SR.24H (FP) PO SCH ×2 (11:03→23:54)
[2020-06-25] MEDS: COLCHICINE 0.6 MG TAB PO SCH (11:03)
[2020-06-25] MEDS: ASCORBIC ACID 500 MG TABLET (FP) PO SCH (11:03)
[2020-06-25] MEDS: PANTOPRAZOLE 40 MG TABLET PO SCH (11:03)
[2020-06-25] MEDS: FOLIC ACID 1 MG TABLET (FP) PO SCH (11:03)
[2020-06-25] MEDS: MAG HYDROX/AL HYDROX/SIMETH -MYLANTA- ORAL SUSPENSION PO SCH ×2 (11:03→23:55)
[2020-06-25] MEDS: FUROSEMIDE 20 MG TABLET (FP) PO SCH (11:03)
[2020-06-25] MEDS: predniSONE 20 MG TABLET (UD) PO SCH (11:03)
[2020-06-25] MEDS: DIVALPROEX SODIUM 250 MG TABLET E.C. PO SCH ×2 (11:03→23:54)
[2020-06-25] MEDS ORDERED: VANCOMYCIN 1 GRAM (PRE-DOCKED) 1,000 MG/250 ML BAG IVPB ONE (11:20)
[2020-06-25] MEDS: COLLAGENASE CLOSTRIDIUM HIST. 30 GRAMS TUBE TP SCH (13:37)
[2020-06-25] MEDS: cefTAZidime PENTAHYDRATE 1 GM/50ML PRE-DOCKED (RESTRICTED TO ID) IVPB SCH ×2 (16:03→16:19)
[2020-06-25] MEDS ORDERED: FUROSEMIDE 40 MG/4 ML INJECTABLE VIAL ONE (16:47)
[2020-06-25] MEDS: SODIUM ZIRCONIUM CYCLOSILICATE (LOKELMA) 5 GM PACKET PO SCH (23:54)
[2020-06-25] MEDS: SENNOSIDES 8.6MG TABLET (FP) PO SCH (23:54)
[2020-06-26 01:20] LABS: BASO % 0.8 % (0-2.0); EOS % 0.1 % (0-4.5); HEMATOCRIT 28.9 % (35.4-49); HEMOGLOBIN 9.1 GM/dL (11.7-16.9); LYMPH % 10.3 % (8-40); MCH 28.7 pg (25.7-33.7); MCHC 31.5 g/dl (32.0-35.9); MEAN CELL VOLUME 91.1 fl (80-96); MEAN PLT VOLUME 10.7 fl (7.5-11.1); MONO % 8.5 % (3.8-10.2); NEUT % 80.3 % (42.8-82.8); PLATELET COUNT 169 K/MM3 (134-434); RBC 3.18 M/mm3 (4.00-5.60); RDW 21.1 % (11.9-15.9); WHITE BLOOD COUNT 9.5 K/mm3 (4.0-10.0)
[2020-06-26 04:01] VITALS: BMI 36.7
[2020-06-26 09:02] LABS: BASO % 0.2 % (0-2.0); EOS % 0.2 % (0-4.5); HEMOGLOBIN 8.9 GM/dL (11.7-16.9); LYMPH % 15.6 % (8-40); MCH 29.2 pg (25.7-33.7); MCHC 31.9 g/dl (32.0-35.9); MEAN CELL VOLUME 91.6 fl (80-96); MEAN PLT VOLUME 10.1 fl (7.5-11.1); MONO % 10.7 % (3.8-10.2); NEUT % 73.3 % (42.8-82.8); PLATELET COUNT 188 K/MM3 (134-434); RBC 3.06 M/mm3 (4.00-5.60); RDW 20.6 % (11.9-15.9); WHITE BLOOD COUNT 9.6 K/mm3 (4.0-10.0)
[2020-06-26 09:21] LABS: POTASSIUM 5.6 mmol/L (3.5-5.1)
[2020-06-26 09:30] LABS: ALBUMIN 2.2 g/dl (3.4-5.0)
[2020-06-26 09:31] LABS: BLOOD UREA NITROGEN 55.8 mg/dL (7-18)
[2020-06-26 09:32] LABS: CALCIUM 8.4 mg/dL (8.5-10.1)
[2020-06-26 09:34] LABS: CREATININE 2.4 mg/dL (0.55-1.3)
[2020-06-26 09:35] LABS: BILIRUBIN,TOTAL 0.7 mg/dL (0.2-1); TOT PROT 6.8 g/dl (6.4-8.2)
[2020-06-26] MEDS ORDERED: PT OWN MED DRAWER 7, Y5N ONE ×2 (10:49→20:19)
[2020-06-26] MEDS: FUROSEMIDE 20 MG TABLET (FP) PO SCH (10:55)
[2020-06-26] MEDS: PANTOPRAZOLE 40 MG TABLET PO SCH (10:55)
[2020-06-26] MEDS: FOLIC ACID 1 MG TABLET (FP) PO SCH (10:55)
[2020-06-26] MEDS: ASCORBIC ACID 500 MG TABLET (FP) PO SCH (10:55)
[2020-06-26] MEDS: predniSONE 20 MG TABLET (UD) PO SCH (10:55)
[2020-06-26] MEDS: metoPROLOL SUCCINATE 25 MG TAB.SR.24H (FP) PO SCH ×2 (10:55→21:15)
[2020-06-26] MEDS: DIVALPROEX SODIUM 250 MG TABLET E.C. PO SCH ×2 (10:58→21:15)
[2020-06-26] MEDS: COLCHICINE 0.6 MG TAB PO SCH (10:58)
[2020-06-26] MEDS: SODIUM ZIRCONIUM CYCLOSILICATE (LOKELMA) 5 GM PACKET PO SCH ×2 (10:59→21:30)
[2020-06-26] MEDS: POLYETHYLENE GLYCOL 3350 255 GM BTL PO SCH (11:07)
[2020-06-26] MEDS: MAG HYDROX/AL HYDROX/SIMETH 30 ML UNIT-DOSE CUP PO SCH ×2 (11:19→21:15)
[2020-06-26] MEDS ORDERED: SODIUM POLYSTYRENE SULFONATE 15 GM/60 ML BOTTLE PO ONE (12:40)
[2020-06-26] MEDS: COLLAGENASE CLOSTRIDIUM HIST. 30 GRAMS TUBE TP SCH (14:08)
[2020-06-26 15:30] VITALS: BP 139/79; PULSE 115; TEMP 98.1
[2020-06-26] MEDS ORDERED: AMINO ACIDS/PROTEIN HYDROLYS 30 ML LIQUID.PKT PO SCH (17:30)
[2020-06-26] MEDS: SENNOSIDES 8.6MG TABLET (FP) PO SCH (21:15)
[2020-06-27] MEDS ORDERED: MULTIVIT-MINERALS ORAL LIQUID PO SCH (10:00)
== END 2020-06-26 21:40 | DRG 812 ==
LOC: JER 17:59 → JERBED 20:48 → J8W 06-25 22:38
PROVIDERS: ADMIT Hospitalist; ATTEND Family Medicine
PROC: 30233N1 Transfusion of Nonautologous Red Blood Cells into Peripheral Vein, Percutaneous Approach (ICD-10-PCS; principal; 2020-06-25)
DX: D64.9 Anemia, unspecified (principal); I13.0 Hypertensive heart and chronic kidney disease with heart failure and stage 1 through stage 4 chronic kidney disease, or unspecified chronic kidney disease; I50.20 Unspecified systolic (congestive) heart failure; E27.40 Unspecified adrenocortical insufficiency; I48.91 Unspecified atrial fibrillation; M10.9 Gout, unspecified; E66.9 Obesity, unspecified; Z68.36 Body mass index [BMI] 36.0-36.9, adult; I89.0 Lymphedema, not elsewhere classified; I87.2 Venous insufficiency (chronic) (peripheral); S81.802A Unspecified open wound, left lower leg, initial encounter; S81.801A Unspecified open wound, right lower leg, initial encounter; N18.9 Chronic kidney disease, unspecified; I27.20 Pulmonary hypertension, unspecified; F41.8 Other specified anxiety disorders; K59.09 Other constipation; E87.5 Hyperkalemia; X58.XXXA Exposure to other specified factors, initial encounter; Y92.9 Unspecified place or not applicable; Y99.9 Unspecified external cause status
CPT/HCPCS: 36415; 36430; 36511; 71045-TC-FY; 76937; 80048; 80053; 82248; 82272; 82550; 82607; 82668; 82728; 82746; 83010; 83540; 83550; 83615; 83735; 84100; 84443; 84484; 85025; 85045; 85610; 85730; 86850; 86900; 86901; 86922; 87040; 87804; 93005; 93010; 99285-25; C9803; P9038; P9058; U0003

== ENCOUNTER 2020-07-05 14:33 | Emergency (ER) | payer OTHER ==
[2020-07-05 15:16] VITALS: TEMP 97.7; BMI 34.4
[2020-07-05] MEDS ORDERED: COLLAGENASE CLOSTRIDIUM HIST. 30 GRAMS TUBE TP SCH (15:45)
[2020-07-05 19:06] VITALS: BP 117/82; PULSE 105
== END 2020-07-05 19:09 ==
LOC: JER 14:33
DX: I89.0 Lymphedema, not elsewhere classified (principal); I87.303 Chronic venous hypertension (idiopathic) without complications of bilateral lower extremity; I87.2 Venous insufficiency (chronic) (peripheral)
CPT/HCPCS: 99283-25

== ENCOUNTER 2020-07-21 11:06 | Inpatient (IN) | payer OTHER, BC ==
[2020-07-21 12:15] VITALS: BMI 34.6
[2020-07-21] MEDS ORDERED: VANCOMYCIN 1 GM in D5W (PRE-DOCKED) 1,000 MG/250 ML IVPB ONE (12:32)
[2020-07-21] MEDS ORDERED: LACTATED RINGERS SOLUTION 1000 ML INFUS.BAG IV ONE (12:32)
[2020-07-21] MEDS ORDERED: PIPERACILLIN/TAZOB 4.5 GM 4.5 GM in DEXTROSE 5%-WATER 100 ML IVPB ONE (12:32)
[2020-07-21 12:43] LABS: BASO % 0.4 % (0-2.0); EOS % 0.4 % (0-4.5); HEMATOCRIT 34.5 % (35.4-49); HEMOGLOBIN 10.5 GM/dL (11.7-16.9); LYMPH % 9.6 % (8-40); MCH 29.9 pg (25.7-33.7); MCHC 30.5 g/dl (32.0-35.9); MEAN CELL VOLUME 98.2 fl (80-96); MEAN PLT VOLUME 9.5 fl (7.5-11.1); MONO % 8.4 % (3.8-10.2); NEUT % 81.2 % (42.8-82.8); PLATELET COUNT 155 K/MM3 (134-434); RBC 3.51 M/mm3 (4.00-5.60); WHITE BLOOD COUNT 6.9 K/mm3 (4.0-10.0)
[2020-07-21 12:48] LABS: INR 1.4 (0.83-1.09)
[2020-07-21] MEDS ORDERED: PIPERACILLIN/TAZOB 4.5 GM 4.5 GM/100 ML BAG IVPB ONE (12:49)
[2020-07-21] MEDS ORDERED: VANCOMYCIN 1 GRAM (PRE-DOCKED) 1,000 MG/250 ML BAG IVPB ONE (12:49)
[2020-07-21 12:51] LABS: ACTIVATED PTT 33.4 SECONDS (25.2-36.5)
[2020-07-21 13:06] LABS: CHLORIDE 110 mmol/L (98-107); SODIUM 142 mmol/L (136-145)
[2020-07-21 13:08] LABS: ALBUMIN 2.7 g/dl (3.4-5.0); CALCIUM 8.4 mg/dL (8.5-10.1)
[2020-07-21 13:09] LABS: BLOOD UREA NITROGEN 47.8 mg/dL (7-18); CO2 29 mmol/L (21-32); GLUCOSE,RANDOM 56 mg/dL (74-106)
[2020-07-21 13:11] LABS: SGPT/ALT 15 U/L (13-61)
[2020-07-21 13:12] LABS: SGOT/AST 39 U/L (15-37)
[2020-07-21 13:13] LABS: BILIRUBIN,TOTAL 0.8 mg/dL (0.2-1); TOT PROT 7.7 g/dl (6.4-8.2)
[2020-07-21 13:14] LABS: ALK PHOS 97 U/L (45-117)
[2020-07-21 13:22] LABS: ANION GAP 3 MMOL/L (8-16)
[2020-07-21 13:25] LABS: POTASSIUM 8.4 mmol/L (3.5-5.1)
[2020-07-21] MEDS ORDERED: SODIUM CHLORIDE 0.9% 500 ML INFUS.BAG IV ONE ×2 (13:38→16:27)
[2020-07-21] MEDS ORDERED: ACETAMINOPHEN 1000 MG/100 ML VIAL (NON FORMULARY) IVPB ONE (14:12)
[2020-07-21 14:19] LABS: EPI CELLS 36 /uL (0-25.1); HYALINE CASTS 1 /uL (0-3.1); URINE APPEARANCE TURBID; URINE BACTERIA >9,000 /uL (0-1359); URINE BILIRUBIN NEGATIVE (NEGATIVE); URINE COLOR YELLOW; URINE GLUCOSE (UA) NEGATIVE (NEGATIVE); URINE KETONE NEGATIVE (NEGATIVE); URINE LEUK ESTERASE 3+ (NEGATIVE); URINE NITRITE NEGATIVE (NEGATIVE); URINE PROTEIN 2+ (NEGATIVE); URINE RBC 112 /uL (0-23.9); URINE UROBILINOGEN 0.2 mg/dL (0.2-1.0); URINE WBC 3416 /uL (0-25.8)
[2020-07-21 14:23] LABS: POTASSIUM 9.4 mmol/L (3.5-5.1)
[2020-07-21] MEDS ORDERED: ACETAMINOPHEN INJECTION 100 ML IVPB ONE (14:34)
[2020-07-21] MEDS ORDERED: DEXTROSE 50%-WATER - 25 GM/50 ML VIAL IVPUSH ONE ×2 (14:52→18:55)
[2020-07-21] MEDS ORDERED: DEXTROSE 50%-WATER 25 GM/50 ML DISP.SYRIN ONE ×2 (14:54→19:18)
[2020-07-21 17:30] LABS: N-TERMINAL BNP 37865.7 pg/ml (5-125)
[2020-07-22] MEDS ORDERED: DEXTROSE 5%-WATER - 50 ML IVPB ONE ×3 (01:41→17:20)
[2020-07-22] MEDS ORDERED: PIPERACILLIN/TAZOBACTAM 3.375 GM VIAL IVPB ONE (01:41)
[2020-07-22] MEDS ORDERED: PIPERACILLIN/TAZOB 3.375 GM 3.375 GM in DEXTROSE 5%-WATER - 50 ML IVPB SCH (02:00)
[2020-07-22] MEDS ORDERED: oxyCODONE HCL 5 MG TABLET PO PRN (07:16)
[2020-07-22] MEDS ORDERED: ACETAMINOPHEN 325 MG TABLET (FP) PO PRN (07:16)
[2020-07-22] MEDS ORDERED: PATIENT'S OWN MEDICATION (NON-FORMULARY) (Ferrous Sulfate [Ferrous Sulfate] 325 MG Tablet) PO SCH (10:00)
[2020-07-22] MEDS ORDERED: VANCOMYCIN/WATER BAGS 1,250 MG/250 ML BAG IVPB ONE (10:00)
[2020-07-22] MEDS ORDERED: VANCOMYCIN 1 GM in D5W (PRE-DOCKED) 1,000 MG/250 ML IVPB SCH (10:00)
[2020-07-22] MEDS ORDERED: PATIENT'S OWN MEDICATION (NON-FORMULARY) (Aa/Hydrolyzed Collagen, Whey [Lps 15-30 Liquid] PO SCH (10:00)
[2020-07-22] MEDS ORDERED: PIPERACILLIN/TAZOBACTAM 2.25 GM VIAL IVPB ONE ×2 (10:02→17:19)
[2020-07-22] MEDS: methylPREDNISolone NA SUCC 40 MG/1 ML VIAL IVPUSH SCH ×2 (10:17→18:12)
[2020-07-22] MEDS: FOLIC ACID 1 MG TABLET (FP) PO SCH (10:23)
[2020-07-22] MEDS: FERROUS SO4 325 MG TABLET (FP) PO SCH ×2 (10:23→22:23)
[2020-07-22] MEDS: COLCHICINE 0.6 MG TAB PO SCH (10:23)
[2020-07-22] MEDS: APIXABAN 2.5 MG TABLET PO SCH ×2 (10:23→22:23)
[2020-07-22] MEDS: metoPROLOL SUCCINATE 25 MG TAB.SR.24H (FP) PO SCH ×2 (10:24→22:23)
[2020-07-22] MEDS: PANTOPRAZOLE 40 MG TABLET PO SCH (10:24)
[2020-07-22] MEDS: SODIUM ZIRCONIUM CYCLOSILICATE (LOKELMA) 10 GM PACKET PO SCH (10:24)
[2020-07-22] MEDS: MAG HYDROX/AL HYDROX/SIMETH 30 ML UNIT-DOSE CUP PO SCH ×2 (10:24→22:23)
[2020-07-22] MEDS: AMMONIUM LACTATE 12% LOTION 225 GM BOTTLE TP SCH ×2 (10:24→22:24)
[2020-07-22] MEDS: POLYETHYLENE GLYCOL 3350 255 GM BTL PO SCH (10:24)
[2020-07-22] MEDS: PIPERACILLIN/TAZOB 2.25 GM 2.25 GM in DEXTROSE 5%-WATER - 50 ML IVPB SCH ×3 (10:26→19:08)
[2020-07-22] MEDS: DIVALPROEX SODIUM 250 MG TABLET E.C. PO SCH ×2 (14:21→22:22)
[2020-07-22] MEDS: FUROSEMIDE 40 MG/4 ML INJECTABLE VIAL IVPUSH SCH (14:22)
[2020-07-22] MEDS: SENNOSIDES 8.6MG TABLET (FP) PO SCH (22:23)
[2020-07-22] MEDS ORDERED: METOPROLOL TARTRATE 5 MG/5 ML VIAL IVPUSH PRN (22:44)
[2020-07-22] MEDS ORDERED: ENOXAPARIN NA (PORCINE) 120 MG/0.8 ML DISP.SYRIN SQ SCH (22:45)
[2020-07-22] MEDS ORDERED: HEPARIN NA (PORCINE) 5,000 UNITS/ML 1ML VIAL IVPUSH PRN ×3 (22:45→23:00)
[2020-07-22] MEDS: METOPROLOL TARTRATE 5 MG/5 ML VIAL IVPUSH SCH (23:13)
[2020-07-22] MEDS: HEPARIN INFUSION - 25,000 UNITS/500 ML INFUS.BAG IVPB SCH (23:15)
[2020-07-23] MEDS: HEPARIN INFUSION - 25,000 UNITS/500 ML INFUS.BAG IVPB SCH (00:09)
[2020-07-23] MEDS ORDERED: PIPERACILLIN/TAZOBACTAM 2.25 GM VIAL IVPB ONE ×3 (01:20→16:58)
[2020-07-23] MEDS ORDERED: DEXTROSE 5%-WATER - 50 ML IVPB ONE ×3 (01:21→16:58)
[2020-07-23] MEDS: methylPREDNISolone NA SUCC 40 MG/1 ML VIAL IVPUSH SCH ×3 (01:25→17:28)
[2020-07-23] MEDS: PIPERACILLIN/TAZOB 2.25 GM 2.25 GM in DEXTROSE 5%-WATER - 50 ML IVPB SCH ×3 (01:25→17:29)
[2020-07-23] MEDS: DIVALPROEX SODIUM 250 MG TABLET E.C. PO SCH ×3 (05:10→22:26)
[2020-07-23] MEDS: METOPROLOL TARTRATE 5 MG/5 ML VIAL IVPUSH SCH ×3 (05:49→17:28)
[2020-07-23] MEDS: FUROSEMIDE 40 MG/4 ML INJECTABLE VIAL IVPUSH SCH ×2 (05:49→14:53)
[2020-07-23 09:29] LABS: BASO % 0.3 % (0-2.0); HEMATOCRIT 28.6 % (35.4-49); HEMOGLOBIN 8.6 GM/dL (11.7-16.9); MCH 29.7 pg (25.7-33.7); MEAN PLT VOLUME 10.5 fl (7.5-11.1); MONO % 3.6 % (3.8-10.2); NEUT % 91.1 % (42.8-82.8); PLATELET COUNT 92 K/MM3 (134-434); RBC 2.89 M/mm3 (4.00-5.60); RDW 19.3 % (11.9-15.9); WHITE BLOOD COUNT 4.3 K/mm3 (4.0-10.0)
[2020-07-23 09:53] LABS: CHLORIDE 110 mmol/L (98-107); SODIUM 145 mmol/L (136-145)
[2020-07-23 10:05] LABS: ALBUMIN 2.4 g/dl (3.4-5.0); CO2 28 mmol/L (21-32); GLUCOSE,RANDOM 77 mg/dL (74-106)
[2020-07-23 10:07] LABS: CALCIUM 8.2 mg/dL (8.5-10.1)
[2020-07-23 10:08] LABS: CREATININE 3.2 mg/dL (0.55-1.3); SGOT/AST 8 U/L (15-37); SGPT/ALT 12 U/L (13-61)
[2020-07-23 10:10] LABS: BILIRUBIN,TOTAL 0.7 mg/dL (0.2-1); TOT PROT 6.6 g/dl (6.4-8.2)
[2020-07-23 10:11] LABS: ALK PHOS 78 U/L (45-117)
[2020-07-23 10:19] LABS: ANION GAP 6 MMOL/L (8-16); POTASSIUM 7.1 mmol/L (3.5-5.1)
[2020-07-23] MEDS: FERROUS SO4 325 MG TABLET (FP) PO SCH ×2 (11:03→22:26)
[2020-07-23] MEDS: PANTOPRAZOLE 40 MG TABLET PO SCH (11:03)
[2020-07-23] MEDS: COLCHICINE 0.6 MG TAB PO SCH (11:04)
[2020-07-23] MEDS: POLYETHYLENE GLYCOL 3350 255 GM BTL PO SCH (11:04)
[2020-07-23] MEDS: MAG HYDROX/AL HYDROX/SIMETH 30 ML UNIT-DOSE CUP PO SCH ×2 (11:04→22:26)
[2020-07-23] MEDS: FOLIC ACID 1 MG TABLET (FP) PO SCH (11:04)
[2020-07-23] MEDS: AMMONIUM LACTATE 12% LOTION 225 GM BOTTLE TP SCH ×2 (11:04→23:08)
[2020-07-23] MEDS: SODIUM ZIRCONIUM CYCLOSILICATE (LOKELMA) 10 GM PACKET PO SCH (11:05)
[2020-07-23] MEDS ORDERED: DEXTROSE 5%-WATER - 1,000 ML IV SCH ×3 (11:45→19:38)
[2020-07-23 12:04] LABS: ANISOCYTOSIS 2+; MACROCYTOSIS 0; OVALOCYTE 1+; PLATELET ESTIMATE DECREASED; TARGET CELLS 1+
[2020-07-23] MEDS ORDERED: CALCIUM GLUCONATE 10% - 1,000 MG/10 ML VIAL IVPB ONE (14:48)
[2020-07-23] MEDS ORDERED: SODIUM BICARBONATE 8.4% 50 MEQ/50 ML DISP.SYRIN IVPUSH ONE ×2 (14:48→19:39)
[2020-07-23 19:28] LABS: CHLORIDE 110 mmol/L (98-107); SODIUM 144 mmol/L (136-145)
[2020-07-23 19:30] LABS: CALCIUM 7.8 mg/dL (8.5-10.1)
[2020-07-23 19:32] LABS: BLOOD UREA NITROGEN 53.2 mg/dL (7-18); CO2 29 mmol/L (21-32); GLUCOSE,RANDOM 94 mg/dL (74-106)
[2020-07-23 19:35] LABS: ANION GAP 5 MMOL/L (8-16); CREATININE 3.3 mg/dL (0.55-1.3)
[2020-07-23] MEDS ORDERED: SODIUM CHLORIDE 500 ML IV STA (19:38)
[2020-07-23] MEDS ORDERED: SODIUM ZIRCONIUM CYCLOSILICATE (LOKELMA) 5 GM PACKET PO ONE (19:39)
[2020-07-23 19:51] LABS: POTASSIUM 6.8 mmol/L (3.5-5.1)
[2020-07-23] MEDS ORDERED: SODIUM POLYSTYRENE SULFONATE 15 GM/60 ML BOTTLE RC ONE (21:58)
[2020-07-23] MEDS ORDERED: SODIUM ZIRCONIUM CYCLOSILICATE (LOKELMA) 10 GM PACKET PO SCH (22:00)
[2020-07-23] MEDS ORDERED: PANTOPRAZOLE SODIUM 40 MG VIAL IVPUSH SCH (22:00)
[2020-07-23] MEDS: SENNOSIDES 8.6MG TABLET (FP) PO SCH (22:26)
[2020-07-23 22:36] LABS: HEMOGLOBIN 8.2 GM/dL (11.7-16.9); MCH 29.1 pg (25.7-33.7); MCHC 29.3 g/dl (32.0-35.9); MEAN CELL VOLUME 99.4 fl (80-96); RBC 2.82 M/mm3 (4.00-5.60); RDW 19.2 % (11.9-15.9); WHITE BLOOD COUNT 4.2 K/mm3 (4.0-10.0)
[2020-07-23 23:25] LABS: MEAN PLT VOLUME 10.2 fl (7.5-11.1); PLATELET COUNT 94 K/MM3 (134-434)
[2020-07-24 02:05] VITALS: BP 112/56; PULSE 111; TEMP 98.5
== END 2020-07-24 00:10 | disposition expired | DRG 871 ==
LOC: JER 11:06 → JERBED 14:56 → J4S 22:51
PROVIDERS: ADMIT Family Medicine; ATTEND Family Medicine
PROC: 0DH67UZ Insertion of Feeding Device into Stomach, Via Natural or Artificial Opening (ICD-10-PCS; principal; 2020-07-24)
DX: A41.59 Other Gram-negative sepsis (principal); I50.23 Acute on chronic systolic (congestive) heart failure; G93.41 Metabolic encephalopathy; J18.9 Pneumonia, unspecified organism; N39.0 Urinary tract infection, site not specified; I13.0 Hypertensive heart and chronic kidney disease with heart failure and stage 1 through stage 4 chronic kidney disease, or unspecified chronic kidney disease; N17.9 Acute kidney failure, unspecified; I48.20 Chronic atrial fibrillation, unspecified; E27.40 Unspecified adrenocortical insufficiency; L97.818 Non-pressure chronic ulcer of other part of right lower leg with other specified severity; L97.828 Non-pressure chronic ulcer of other part of left lower leg with other specified severity; I73.9 Peripheral vascular disease, unspecified; I83.018 Varicose veins of right lower extremity with ulcer other part of lower leg; I83.028 Varicose veins of left lower extremity with ulcer other part of lower leg; I48.91 Unspecified atrial fibrillation; M10.9 Gout, unspecified; N18.9 Chronic kidney disease, unspecified; R68.0 Hypothermia, not associated with low environmental temperature; D63.1 Anemia in chronic kidney disease; I89.0 Lymphedema, not elsewhere classified; I27.20 Pulmonary hypertension, unspecified; F41.8 Other specified anxiety disorders; E87.5 Hyperkalemia; E66.9 Obesity, unspecified; Z68.36 Body mass index [BMI] 36.0-36.9, adult; R53.83 Other fatigue; I46.9 Cardiac arrest, cause unspecified
CPT/HCPCS: 36415; 70450-TC; 71045-TC-FY; 72125-TC; 80048; 80053; 81003; 82962; 83036; 83605; 83880; 84132; 84484; 85025; 85027; 85610; 85730; 86850; 86900; 86901; 86922; 87040; 87086; 87186; 93005; 93010; 93971; 97161-GP; 99285-25; C9803; J0131; J1644; U0003; U0005